=== PATIENT | female | born 1990 | race Caucasian/White ===

== ENCOUNTER 2020-05-25 10:14 | Emergency (ER) | payer OTHER, SELFPAY ==
[2020-05-25 10:45] VITALS: BP 149/100; PULSE 131; RESP 18; TEMP 37.2; O2SAT 96; BMI 41.1
--- NOTE | 2020-05-25 11:46 | PC.NURSE ---
patient a&ox3, ambulating x2 to bathroom for bm, quality assurance monitor body sinus tach 120s, pt hard stick- obtained labs/urine asked for assistance to obtain iv site, will continue to monitor.
[2020-05-25 11:50] LABS: MANUAL DIFF FLAG NO
[2020-05-25 11:53] LABS: Basophils Percent Auto 0.4 % (0-2); Eosinophils Percent Auto 0.2 % (0-4); Hemoglobin 14.2 g/dl (12.0-16.0); Imm Gran Abs Auto 0.04 X10*3/uL (0.00-0.03); Imm Gran Pct Auto 0.4 % (0.0-0.4); Lymphocytes Absolute Auto 2.4 X10*3/uL (1.2-4.9); Lymphocytes Percent Auto 21.9 % (20-40); Mean Corpuscular HGB Conc 33.8 g/dl (31.0-35.0); Mean Corpuscular Hemoglobin 29.2 pg (27.0-33.0); Mean Corpuscular Volume 86.2 fL (80-98); Mean Platelet Volume 9.5 fL (9.4-12.3); Monocytes Absolute Auto 0.3 X10*3/uL (0.1-1.2); Monocytes Percent Auto 3.1 % (2-11); Platelet Count 443 X10*3/uL (160-400); Red Blood Count 4.87 X10*6/uL (4.20-5.50); Red Cell Distribution Width 12.9 % (11.0-16.0); White Blood Count 10.8 X10*3/uL (4.8-10.8)
[2020-05-25 11:59] LABS: Glucose Urine UA NEG (NEG); Leukocyte Esterase Urine NEG (NEG); Nitrite Urine NEG (NEG); Specific Gravity - Urine 1.025 (1.005-1.025); Urine Blood 1+ (NEG); Urine Ketones NEG (NEG); Urine Protein NEG (NEG-TRACE)
[2020-05-25 12:01] LABS: Appearance Urine CLEAR; Color Urine YELLOW
[2020-05-25 12:02] LABS: UPreg QC Valid YES; Urine Pregnancy NEGATIVE (NEGATIVE)
[2020-05-25] MEDS: 0.9 % Sodium Chloride 1,000 ML 999 ML IV (12:06)
[2020-05-25] MEDS: ondansetron HCL 4 MG/2 ML VIAL IVPUSH (12:06)
[2020-05-25] MEDS: Dicyclomine HCl 10 MG CAPSULE 20 MG PO (12:06)
--- NOTE | 2020-05-25 12:10 | PC.NURSE ---
iv inserted and patient medicated per order
[2020-05-25 12:18] LABS: Alanine Aminotransferase 45 U/L (0-31); Albumin Level 4.7 g/dL (3.5-5.0); Alkaline Phosphatase 90 U/L (39-117); Anion Gap 17 (12-20); Aspartate Amino Transferase 23 U/L (5-31); Bilirubin Total 0.2 mg/dL (0.0-1.0); Blood Urea Nitrogen 8 mg/dL (9-16); Calcium 9.5 mg/dL (8.4-10.2); Carbon Dioxide 21 mmol/L (22-29); Chloride 106 mmol/L (96-108); Creatinine Clr Calc Pharmacy 89.3; Estimated Glomerular Filt Rate > 60; Glucose Random 141 mg/dL (60-115); Potassium 4.7 mmol/l (3.3-5.1); Sodium 139 mmol/L (135-145)
[2020-05-25 12:32] LABS: Bacteria Urine 2+ /LPF; RBC Urine 0-2 /HPF (0); Squamous Epithelial Cell Urine 2+ /LPF; WBC Urine 0-2 /HPF (0-4)
--- NOTE | 2020-05-25 12:44 | ED_ITS ---
HPI - Abdominal Pain General Chief Complaint: Abdominal Pain Stated Complaint: n/v abd pain Time Seen by Provider: 05/25/20 10:57 Source: patient Mode of arrival: ambulatory Limitations: no limitations History of Present Illness HPI narrative: This is a 30-year-old with past medical history significant for polycystic ovarian syndrome, chronic abdominal pain secondary to gastroparesis and surgical history of partial tonsillectomy and cholecystectomy who unfortunately suffers from chronic abdominal pain secondary to gastroparesis leading to multiple ED visits I initially saw her in August when she moved back here from [place] during that visit labs and abdominal CT was done for her abdominal pain which did not show any acute pathology. She does follow him sure counting gastro and question [facility] she has had ?flares? of abdominal pain for several years now and today for the past 3 days states she has had nausea with diffuse upper abdominal pain consistent with previous episodes. There is associated nausea but no vomiting or diarrhea. There is no symptoms. There is no vaginal discharge or bleeding. There is no fever or chills. No recent travel or sick contacts. MD elicited complaint: abdominal pain Pertinent past history: other Onset (ago): day(s) Pain Consistency: intermittent Location: diffuse and periumbilical Quality: aching Radiation: none Migration to: no migration Context: history of similar episodes Associated symptoms: nausea Related Data Allergies Allergy/AdvReac Type Severity Reaction Status Date / Time influenza virus vaccine, Allergy Mild UNKNOWN Unverified 01/29/20 15:54 specific [FLU VACCINE] doxycycline [DOXYCYCLINE] Allergy Unknown SWELLING Unverified 01/29/20 15:54 vancomycin [VANCOMYCIN] Allergy Unknown ANAPHYLAXIS Unverified 01/29/20 15:54 Review of Systems Review of Systems Constitutional: No Weight loss, No Fever, No Chills, No Night Sweats, No Fatigue, No Malaise ENT/Mouth: No Hearing loss, No Ear Pain, No Nasal Congestion, No Sinus Pain, No Hoarseness, No sore throat, No Rhinorrhea, No Swallowing Difficulty Eyes: No Eye Pain, No Swelling, No Redness, No Foreign Body, No Discharge, No Vision Changes Cardiovascular: No Chest Pain, No SOB, No Dyspnea on Exertion, No Orthopnea, No Edema, No Palpitations Respiratory: No Cough, No Sputum, No Wheezing, No Smoke Exposure, No Dyspnea Gastrointestinal: As noted in HPI, No Constipation, No Hematochezia, No Melena Genitourinary: no irregular bleeding, No Dysuria, No Urinary Frequency, No Hematuria, No Urinary Incontinence, No Urgency, No Flank Pain Musculoskeletal: No joint pain, No Myalgias, No Joint Swelling Skin: No Skin Lesions, No rash Neuro: No Weakness, No Numbness, No Paresthesias, No Loss of Consciousness, No Dizziness, No Headache Psych: No Social Issues Heme/Lymph: No Bruising, No Bleeding,No Lymphadenopathy Endocrine: No Polyuria, No Polydipsia, No Temperature Intolerance Yes all other systems are reviewed and are negative Physical Exam Vital Signs: Vital Signs: Last Vital Signs Temp 98.3 F 05/25/20 15:09 Pulse 102 H 05/25/20 15:09 Resp 18 05/25/20 15:09 BP 143/90 H 05/25/20 15:09 Pulse Ox 96 05/25/20 10:45 Body Mass Index 41.1 Reviewed Const: General: cooperative and healthy appearing; No acute distress or intoxicated appearing Nutritional Appearance: average body habitus Orientation/consciousness: patient oriented x3 HENMT: Head: Yes normal to inspection Ears: hearing grossly normal bilaterally Eyes: General: appearance normal, both eyes and all related structures Visual Casanova: normal visual casanova by confrontation Neck: Neck: Yes normal visual inspection, No positive Brudzinski's sign, No positive Kernig's sign and No tender Thyroid: Thyroid normal Chest: Chest palpation & inspection: normal inspection of the chest Resp: Effort & Inspection: normal respiratory effort Cardio: Jugular venous distension: no JVD Rhythm: regular rhythm Heart sounds: S1 normal heart sound present and S2 normal heart sound present GI: Inspection: Yes normal to inspection Percussion: Yes normal to percussion Auscultation: normal bowel sounds : General: Yes no CVA tenderness Back/Spine/Pelvis: Back: no CVA tenderness Skin: General skin exam: no rashes or lesions noted Neuro: General: patient oriented x3 Extrem: General: Yes normal to inspection Course Course Course Narrative: Feels much better after IV Zofran, fluids and Bentyl. States the pain and the nausea has resolved. Workup overall unrevealing. Will discharge home with GI follow-up. Dr. Sierra did call in a PPI prescription for her. MDM - Abdominal Pain MDM Narrative Medical decision making narrative: Will check labs, UA, U preg and treat with IV fluids, antiemetics and Bentyl. Pain consistent with chronic gastroparesis she gets intermittent flares is being followed by GI here Dr. Sierra. Overall exam is well and reveals no acute surgical abdomen. Will re-evaluate and dispo per plan after treatment. Differential Diagnosis Differential diagnosis: Likely abdominal pain and gastritis; Unlikely constipation, diverticulitis, mesenteric ischemia, ovarian cyst, pancreatitis, peptic ulcer disease, renal colic and small bowel obstruction Medical Records Attestation: I reviewed the patient's medical records. Medical records narrative: August 2019 visit reviewed Along with subsequent visits in September and in October 2019 All visits for abdominal pain with similar presentation Lab Data Attestation: I reviewed the patient's lab results. Result diagrams: 05/25/20 11:38 05/25/20 11:38 Labs: Lab Results 05/25/20 05/25/20 05/25/20 Range/Units 11:38 11:38 11:38 WBC 10.8 (4.8-10.8) X10*3/uL RBC 4.87 (4.20-5.50) X10*6/uL Hgb 14.2 (12.0-16.0) g/dl Hct 42.0 (37-47) % MCV 86.2 (80-98) fL MCH 29.2 (27.0-33.0) pg MCHC 33.8 (31.0-35.0) g/dl RDW 12.9 (11.0-16.0) % Plt Count 443 H (160-400) X10*3/uL MPV 9.5 (9.4-12.3) fL Immature Gran % (Auto) 0.4 (0.0-0.4) % Neut % (Auto) 74.0 H (45-73) % Lymph % (Auto) 21.9 (20-40) % [place] % (Auto) 3.1 (2-11) % Eos % (Auto) 0.2 (0-4) % Baso % (Auto) 0.4 (0-2) % Lymph # (Auto) 2.4 (1.2-4.9) X10*3/uL [place] # (Auto) 0.3 (0.1-1.2) X10*3/uL Eos # (Auto) 0.0 (0.0-0.4) X10*3/uL Baso # (Auto) 0.0 (0.0-0.2) X10*3/uL Abs Immat Gran (auto) 0.04 H (0.00-0.03) X10*3/uL Absolute Neuts (auto) 8.0 (2.0-8.3) X10*3/uL Absolute Nucleated RBC 0.000 (0.0-0.012) X10*3/uL Nucleated RBC % (auto) 0.0 (0.0-0.2) /100WBC Sodium 139 (135-145) mmol/L Potassium 4.7 (3.3-5.1) mmol/l Chloride 106 (96-108) mmol/L Carbon Dioxide 21 L (22-29) mmol/L Anion Gap 17 (12-20) BUN 8 L (9-16) mg/dL Creatinine 0.83 (0.5-1.4) mg/dL Estim Creat Clear Calc 89.3 Estimated GFR > 60 Random Glucose 141 H (60-115) mg/dL Calcium 9.5 (8.4-10.2) mg/dL Total Bilirubin 0.2 (0.0-1.0) mg/dL AST 23 (5-31) U/L ALT 45 H (0-31) U/L Alkaline Phosphatase 90 (39-117) U/L Total Protein 8.0 (6.5-8.0) g/dL Albumin 4.7 (3.5-5.0) g/dL Urine Color YELLOW Urine Appearance CLEAR Urine pH 6.0 (5.0-8.0) Ur Specific [place] 1.025 (1.005-1.025) Urine Protein NEG (NEG-TRACE) MG/DL Urine Glucose (UA) NEG (NEG) MG/DL Urine Ketones NEG (NEG) MG/DL Urine Blood 1+ H (NEG) Urine Nitrite NEG (NEG) Ur Leukocyte Esterase NEG (NEG) Urine RBC 0-2 (0) /HPF Urine WBC 0-2 (0-4) /HPF Ur Squamous Epith Cells 2+ /LPF Urine Bacteria 2+ /LPF Urine Test NEGATIVE (NEGATIVE) Discharge Plan Discharge Clinical Impression: Nausea & vomiting Patient Disposition: Home, Self-Care Instructions: Abdominal Pain (ED) Additional Instructions: Supportive care discussed Take medication prescribed Return if any concerns or worsening symptoms Otherwise follow up with her GI doctor as discussed Thank you Referrals: Janny Peoples FNP [Primary Care Provider] - 1 week [facility] Past Medical History Medical History (Updated 05/25/20 @ 15:18 by James Sullivan NP) Cholecystectomy planned Gastroparesis Lyme disease Osteoarthritis PCOS (polycystic ovarian syndrome) Pre-diabetes Surgical History (Updated 05/25/20 @ 10:49 by Mely Damon) H/O partial thyroidectomy Social History Social History Alcohol intake: current Alcohol intake frequency: holidays/special occasions only Smoked in Last 30 Days: No Use of substances other than those prescribed or required for medical reasons: No Advance Directives: No Advance Directives Information Provided: No
[2020-05-25 15:09] VITALS: BP 143/90; PULSE 102; RESP 18; TEMP 36.8
== END 2020-05-25 15:30 | disposition home or self-care (01) ==
PROVIDERS: Nurse Practitioner Primary Care; Emergency Provider Emergency Medicine Emergency Medical Services; PCP Nurse Practitioner Family
DX: R11.2 Nausea with vomiting, unspecified (principal)
CPT/HCPCS: 36415; 80053; 81001; 81025; 85025; 96361; 96374; 99284; J2405

== ENCOUNTER 2021-03-05 22:06 | Observation (INO) | payer OTHER, SELFPAY ==
--- NOTE | 2021-03-05 | ECG_ITS ---
Test Reason : TACJYCARDIA/SYNCOPE Blood Pressure : / mmHG Vent. Rate : 125 BPM Atrial Rate : 125 BPM P-R Int : 146 ms QRS Dur : 066 ms QT Int : 318 ms P-R-T Axes : 037 016 036 degrees QTc Int : 458 ms Sinus tachycardia Otherwise normal ECG NO PREVIOUS EKG Referred By: Generic ED Physician Electronically Signed By:RADHA VNACE MD
[2021-03-05 22:11] VITALS: BP 149/110; PULSE 140; RESP 16; TEMP 37; O2SAT 97; BMI 41.1
--- NOTE | 2021-03-05 22:35 | ED_ITS ---
HPI - Nausea/Vomiting/Diarrhea General Chief complaint: Nausea/Vomiting/Diarrhea Stated complaint: Abdominal pain Time Seen by Provider: 03/05/21 22:26 Source: patient Mode of arrival: ambulatory Limitations: no limitations History of Present Illness HPI Narrative: Patient comes emergency room complaining a gastroparesis exacerbation. Patient states she has been vomiting, having diarrhea, abdominal distension throughout the day. Patient states she has had recently multiple exacerbations with a self resolve, however today she is still having symptoms, unable to tolerate medications. Patient tried p.o. Zofran, states it did not help her. Patient denies being sick lately, no recent URIs, no UTIs, no known e xposure to COVID-19 patients Related Data Allergies Allergy/AdvReac Type Severity Reaction Status Date / Time influenza virus vaccine, Allergy Mild UNKNOWN Unverified 01/29/20 15:54 specific [FLU VACCINE] doxycycline [DOXYCYCLINE] Allergy Unknown SWELLING Unverified 01/29/20 15:54 vancomycin [VANCOMYCIN] Allergy Unknown ANAPHYLAXIS Unverified 01/29/20 15:54 metoclopramide [From Reglan] Allergy Unknown Verified 03/05/21 22:17 Review of Systems Review of Systems: Constitutional : No Weight loss, No Fever, No Chills, No Night Sweats, No Fatigue, No Malaise ENT/Mouth : No Hearing loss, No Ear Pain, No Nasal Congestion, No Sinus Pain, No Hoarseness, No sore throat, No Rhinorrhea, No Swallowing Difficulty Eyes: No Eye Pain, No Swelling, No Redness, No Foreign Body, No Discharge, No Vision Changes Cardiovascular : No Chest Pain, No SOB, No Dyspnea on Exertion, No Orthopnea, No Edema, No Palpitations Respiratory : No Cough, No Sputum, No Wheezing, No Smoke Exposure, No Dyspnea Gastrointestinal : No Nausea, No Vomiting, No Diarrhea, No Constipation, No abdominal Pain, No Hematochezia, No Melena Genitourinary : no irregular bleeding, No Dysuria, No Urinary Frequency, No Hematuria, No Urinary Incontinence, No Urgency, No Flank Pain, No Urinary Flow Changes, No Hesitancy Musculoskeletal : No joint pain, No Myalgias, No Joint Swelling Skin : No Skin Lesions, No rash Neuro : No Weakness, No Numbness, No Paresthesias, No Loss of Consciousness, No Dizziness, No Headache Psych : No Anxiety/Panic, No Depression, No SI/HI/AH/VH, No Social Issues, Heme/Lymph: No Bruising, No Bleeding,No Lymphadenopathy Endocrine : No Polyuria, No Polydipsia, No Temperature Intolerance [facility] Past Medical History Medical History Cholecystectomy planned Gastroparesis Lyme disease Osteoarthritis PCOS (polycystic ovarian syndrome) Pre-diabetes Surgical History H/O partial thyroidectomy Social History Social History Alcohol intake: current Alcohol intake frequency: holidays/special occasions only Advance Directives: No Advance Directives Information Provided: No Patient : No Physical Exam Vital Signs: Vital Signs: Last Vital Signs Temp 98.2 F 03/05/21 23:26 Pulse 121 H 03/06/21 02:32 Resp 16 03/06/21 02:32 BP 132/82 03/06/21 02:32 Pulse Ox 98 03/06/21 02:32 Body Mass Index 41.1 Const: Other: Appearance: Alert. Oriented X3. No acute distress. Eyes: Pupils equal, round and reactive to light. ENT: Pharynx normal. Neck: Normal inspection. Neck supple. No lymph nodes noted. No crepitus CVS: Normal heart rate and rhythm. Pulses normal. Normal S1 and S2 Respiratory: No respiratory distress. Breath sounds normal. No Wheezing. No rales Abdomen: Soft and nontender. No rigidity. No distention. Skin: Skin warm and dry. Normal skin color. Normal skin turgor. Extremities: No lower extremity edema. No lower extremity edema. No Lacerations. No Rash Neuro: Oriented X 3. No motor deficit. No sensory deficit. Moving all extermities. No slurred speech. Course Course Course Narrative: Patient received 3 L of normal saline, 1 dose of morphine, Zofran, Phenergan, Compazine, dicyclomine. Patient was p.o. challenged and started vomiting again. I discussed the patient with Dr. Slaughter, patient being admitted for intractable vomiting, gastroparesis. MDM - Nausea/Vomiting/Diarrhea Lab Data Result diagrams: 03/05/21 22:47 03/05/21 22:47 Labs: Lab Results 03/05/21 03/05/21 03/05/21 Range/Units 22:47 22:47 22:47 WBC 15.8 H (4.8-10.8) X10*3/uL RBC 5.21 (4.20-5.50) X10*6/uL Hgb 14.8 (12.0-16.0) g/dl Hct 44.5 (37-47) % MCV 85.4 (80-98) fL MCH 28.4 (27.0-33.0) pg MCHC 33.3 (31.0-35.0) g/dl RDW 13.2 (11.0-16.0) % Plt Count 414 H (160-400) X10*3/uL MPV 9.8 (9.4-12.3) fL Immature Gran % (Auto) 0.4 (0.0-0.4) % Neut % (Auto) 86.0 H (45-73) % Lymph % (Auto) 8.8 L (20-40) % [place] % (Auto) 4.4 (2-11) % Eos % (Auto) 0.2 (0-4) % Baso % (Auto) 0.2 (0-2) % Lymph # (Auto) 1.4 (1.2-4.9) X10*3/uL [place] # (Auto) 0.7 (0.1-1.2) X10*3/uL Eos # (Auto) 0.0 (0.0-0.4) X10*3/uL Baso # (Auto) 0.0 (0.0-0.2) X10*3/uL Abs Immat Gran (auto) 0.06 H (0.00-0.03) X10*3/uL Absolute Neuts (auto) 13.6 H (2.0-8.3) X10*3/uL Absolute Nucleated RBC 0.000 (0.0-0.012) X10*3/uL Nucleated RBC % (auto) 0.0 (0.0-0.2) /100WBC Sodium 137 (135-145) mmol/L Potassium 4.6 (3.3-5.1) mmol/L Chloride 104 (96-108) mmol/L Carbon Dioxide 22 (22-29) mmol/L Anion Gap 16 (12-20) BUN 12 (9-16) mg/dL Creatinine 1.06 (0.5-1.4) mg/dL Estim Creat Clear Calc 69.3 Estimated GFR > 60 Random Glucose 219 H (60-115) mg/dL Calcium 10.0 (8.4-10.2) mg/dL Total Bilirubin 0.3 (0.0-1.0) mg/dL Direct Bilirubin < 0.2 (0.0-0.5) mg/dL AST 18 (5-31) U/L ALT 27 (0-31) U/L Alkaline Phosphatase 81 (39-117) U/L Troponin I High Sens (<3.5-17.0) ng/L Total Protein 7.8 (6.5-8.0) g/dL Albumin 4.6 (3.5-5.0) g/dL Lipase 32 (8-78) U/L Urine Color DK YELLOW Urine Appearance HAZY Urine pH 6.0 (5.0-8.0) Ur Specific [place] >= 1.030 H (1.005-1.025) Urine Protein 2+ H (NEG-TRACE) MG/DL Urine Glucose (UA) NEG (NEG) MG/DL Urine Ketones 5 (NEG) MG/DL Urine Blood NEG (NEG) Urine Nitrite NEG (NEG) Ur Leukocyte Esterase 1+ H (NEG) Urine RBC 0-2 (0) /HPF Urine WBC 15-29 H (0-4) /HPF Ur Squamous Epith Cells 3+ /LPF Ur Renal Epithelial Cell TRACE /LPF Urine Bacteria TRACE /LPF Hyaline Casts 1-4 /LPF WBC Casts 0-2 /LPF Urine Mucus 3+ /LPF Urine Test (NEGATIVE) Urine Opiates Screen (Not Detect) Urine Fentanyl Screen (Not Detect) Ur Barbiturates Screen (Not Detect) Ur Phencyclidine Scrn (Not Detect) Ur Amphetamines Screen (Not Detect) U Benzodiazepines Scrn (Not Detect) Urine Cocaine Screen (Not Detect) U Marijuana (THC) Screen (Not Detect) 03/05/21 03/05/21 03/05/21 Range/Units 22:47 22:47 22:47 WBC (4.8-10.8) X10*3/uL RBC (4.20-5.50) X10*6/uL Hgb (12.0-16.0) g/dl Hct (37-47) % MCV (80-98) fL MCH (27.0-33.0) pg MCHC (31.0-35.0) g/dl RDW (11.0-16.0) % Plt Count (160-400) X10*3/uL MPV (9.4-12.3) fL Immature Gran % (Auto) (0.0-0.4) % Neut % (Auto) (45-73) % Lymph % (Auto) (20-40) % [place] % (Auto) (2-11) % Eos % (Auto) (0-4) % Baso % (Auto) (0-2) % Lymph # (Auto) (1.2-4.9) X10*3/uL [place] # (Auto) (0.1-1.2) X10*3/uL Eos # (Auto) (0.0-0.4) X10*3/uL Baso # (Auto) (0.0-0.2) X10*3/uL Abs Immat Gran (auto) (0.00-0.03) X10*3/uL Absolute Neuts (auto) (2.0-8.3) X10*3/uL Absolute Nucleated RBC (0.0-0.012) X10*3/uL Nucleated RBC % (auto) (0.0-0.2) /100WBC Sodium (135-145) mmol/L Potassium (3.3-5.1) mmol/L Chloride (96-108) mmol/L Carbon Dioxide (22-29) mmol/L Anion Gap (12-20) BUN (9-16) mg/dL Creatinine (0.5-1.4) mg/dL Estim Creat Clear Calc Estimated GFR Random Glucose (60-115) mg/dL Calcium (8.4-10.2) mg/dL Total Bilirubin (0.0-1.0) mg/dL Direct Bilirubin (0.0-0.5) mg/dL AST (5-31) U/L ALT (0-31) U/L Alkaline Phosphatase (39-117) U/L Troponin I High Sens < 3.5 (<3.5-17.0) ng/L Total Protein (6.5-8.0) g/dL Albumin (3.5-5.0) g/dL Lipase (8-78) U/L Urine Color Urine Appearance Urine pH (5.0-8.0) Ur Specific [place] (1.005-1.025) Urine Protein (NEG-TRACE) MG/DL Urine Glucose (UA) (NEG) MG/DL Urine Ketones (NEG) MG/DL Urine Blood (NEG) Urine Nitrite (NEG) Ur Leukocyte Esterase (NEG) Urine RBC (0) /HPF Urine WBC (0-4) /HPF Ur Squamous Epith Cells /LPF Ur Renal Epithelial Cell /LPF Urine Bacteria /LPF Hyaline Casts /LPF WBC Casts /LPF Urine Mucus /LPF Urine Test NEGATIVE (NEGATIVE) Urine Opiates Screen Not Detected (Not Detect) Urine Fentanyl Screen Not Detected (Not Detect) Ur Barbiturates Screen Not Detected (Not Detect) Ur Phencyclidine Scrn Not Detected (Not Detect) Ur Amphetamines Screen Not Detected (Not Detect) U Benzodiazepines Scrn Not Detected (Not Detect) Urine Cocaine Screen Not Detected (Not Detect) U Marijuana (THC) Screen Not Detected (Not Detect) ECG Data Attestation: I personally reviewed and interpreted this ECG as follows: (Sinus tachycardia, heart rate 125, no ST segment depression or elevation, no T-wave inversion, QTC 458) Discharge Plan Discharge Clinical Impression: Gastroparesis, Vomiting Patient Disposition: Admitted As Inpatient
[2021-03-05 23:01] LABS: MANUAL DIFF FLAG NO
[2021-03-05 23:03] LABS: Basophils Percent Auto 0.2 % (0-2); Eosinophils Percent Auto 0.2 % (0-4); Hematocrit 44.5 % (37-47); Hemoglobin 14.8 g/dl (12.0-16.0); Imm Gran Abs Auto 0.06 X10*3/uL (0.00-0.03); Imm Gran Pct Auto 0.4 % (0.0-0.4); Lymphocytes Absolute Auto 1.4 X10*3/uL (1.2-4.9); Lymphocytes Percent Auto 8.8 % (20-40); Mean Corpuscular HGB Conc 33.3 g/dl (31.0-35.0); Mean Corpuscular Hemoglobin 28.4 pg (27.0-33.0); Mean Corpuscular Volume 85.4 fL (80-98); Mean Platelet Volume 9.8 fL (9.4-12.3); Monocytes Absolute Auto 0.7 X10*3/uL (0.1-1.2); Monocytes Percent Auto 4.4 % (2-11); Neutrophils Absolute Auto 13.6 X10*3/uL (2.0-8.3); Platelet Count 414 X10*3/uL (160-400); Red Blood Count 5.21 X10*6/uL (4.20-5.50); Red Cell Distribution Width 13.2 % (11.0-16.0); White Blood Count 15.8 X10*3/uL (4.8-10.8)
[2021-03-05] MEDS: 0.9 % Sodium Chloride 1,000 ML 999 ML IVCONT (23:03)
[2021-03-05] MEDS: Prochlorperazine Edisylate 10 MG/2 ML VIAL IM (23:03)
[2021-03-05 23:04] LABS: Appearance Urine HAZY; Color Urine DK YELLOW; Glucose Urine UA NEG (NEG); Leukocyte Esterase Urine 1+ (NEG); Nitrite Urine NEG (NEG); Specific Gravity - Urine >= 1.030 (1.005-1.025); UACC Culture Trigger YES; Urine Blood NEG (NEG); Urine Ketones 5 MG/DL (NEG); Urine Protein 2+ MG/DL (NEG-TRACE)
[2021-03-05 23:08] LABS: UPreg QC Valid YES; Urine Pregnancy NEGATIVE (NEGATIVE)
--- NOTE | 2021-03-05 23:10 | PC.NURSE ---
iv inserted w/o difficulty. ns up and running w/o site intact. pt actively vomiting in room. pt medicated per emar for nausea. pt unable to take the bentyl at this time d/t nausea. Labs and urine sent to lab for eval.
[2021-03-05 23:15] LABS: Bacteria Urine TRACE /LPF; Mucus Urine 3+ /LPF; RBC Urine 0-2 /HPF (0); Renal Epithelial Cells Urine TRACE /LPF; Squamous Epithelial Cell Urine 3+ /LPF; White Blood Cell Casts Urine 0-2 /LPF
[2021-03-05 23:25] LABS: Alanine Aminotransferase 27 U/L (0-31); Albumin Level 4.6 g/dL (3.5-5.0); Alkaline Phosphatase 81 U/L (39-117); Anion Gap 16 (12-20); Aspartate Amino Transferase 18 U/L (5-31); Bilirubin Direct < 0.2 mg/dL (0.0-0.5); Bilirubin Total 0.3 mg/dL (0.0-1.0); Blood Urea Nitrogen 12 mg/dL (9-16); Carbon Dioxide 22 mmol/L (22-29); Chloride 104 mmol/L (96-108); Creatinine Clr Calc Pharmacy 69.3; Estimated Glomerular Filt Rate > 60; Glucose Random 219 mg/dL (60-115); Lipase 32 U/L (8-78); Potassium 4.6 mmol/L (3.3-5.1); Sodium 137 mmol/L (135-145); Total Protein 7.8 g/dL (6.5-8.0)
[2021-03-05 23:26] VITALS: BP 151/97; PULSE 138; RESP 18; TEMP 36.8; O2SAT 96
[2021-03-05 23:27] LABS: Troponin-I High Sensitivity < 3.5 ng/L (<3.5-17.0)
[2021-03-05 23:47] VITALS: RESP 16
[2021-03-05] MEDS: Morphine Sulfate 4 MG/ML CARTRIDGE IVPUSH (23:47)
[2021-03-06] VITALS (12 sets, daily range): BP systolic 132–158; BP diastolic 78–96; PULSE 94–130; RESP 16–20; TEMP -17.3–38.3; O2SAT 94–99
[2021-03-06] MEDS: Dicyclomine HCl 10 MG CAPSULE PO (00:01)
[2021-03-06] MEDS: 0.9 % Sodium Chloride 1,000 ML 999 ML IVCONT (02:59)
[2021-03-06] MEDS: ondansetron HCL 4 MG/2 ML VIAL IVPUSH ×3 (03:06→19:55)
[2021-03-06 03:15] LABS: Amphetamine Screen Urine Not Detected (Not Detect); Barbiturates, Urine Not Detected (Not Detect); Benzodiazepines Screen Urine Not Detected (Not Detect); Cannabinoid Screen Urine Not Detected (Not Detect); Cocaine Screen Urine Not Detected (Not Detect); Fentanyl, urine Not Detected (Not Detect); Opiate Screen Urine Not Detected (Not Detect); Phencyclidine Screen Urine Not Detected (Not Detect)
--- NOTE | 2021-03-06 04:16 | PC.NURSE ---
pt being admitted. pt aware. pt is not actively vomiting at this time.
--- NOTE | 2021-03-06 05:29 | PC.NURSE ---
pt resting in NAD.
--- NOTE | 2021-03-06 06:18 | P.HPHOSP_ITS ---
History of Present Illness Date of Service: 03/06/21 Chief Complaint: Gastroparesis flare up This is a 31-year-old female with past medical history of gastroparesis, diabetes, osteoarthritis and labs disease who presents to the hospital with complaints of gastroparesis flare patient reports that she gets them every few months, associated with nausea vomiting abdominal pain. The abdominal pain is usually diffuse, 7/10, now localized to the center radiating to the back, has diarrhea, no fever no chills, no chest pain, no shortness of breath, no urinary symptoms and no lower extremity edema. On arrival to the ED patient hemodynamically stable with no significant abnormal vitals Labs are significant for WBC count of 15.8, UA that is positive for leukocyte Estrace and WBC, otherwise unremarkable Patient received multiple antiemetics in the ED with no relief therefore being admitted for intractable nausea vomiting Review of Systems Review of Systems: Yes all other systems are reviewed and are negative [facility] Medical History Cholecystectomy planned Gastroparesis Lyme disease Osteoarthritis PCOS (polycystic ovarian syndrome) Pre-diabetes Pertinent family history: No pertinent family history Surgical History H/O partial thyroidectomy Social History Alcohol intake: current Alcohol intake frequency: holidays/special occasions only Advance Directives: No Advance Directives Information Provided: No Patient : No Meds Allergies Allergy/AdvReac Type Severity Reaction Status Date / Time influenza virus vaccine, Allergy Mild UNKNOWN Unverified 01/29/20 15:54 specific [FLU VACCINE] doxycycline [DOXYCYCLINE] Allergy Unknown SWELLING Unverified 01/29/20 15:54 vancomycin [VANCOMYCIN] Allergy Unknown ANAPHYLAXIS Unverified 01/29/20 15:54 metoclopramide [From Reglan] Allergy Unknown Verified 03/05/21 22:17 Home Medications Medication Instructions Recorded Confirmed Last Taken Type bupropion HCl 150 mg tablet,12 hr 150 mg PO BID 03/06/21 03/06/21 Unknown History sustained-release Physical Exam Vital Signs and Narrative: Vital Signs: Last Vital Signs Temp 98.2 F 03/05/21 23:26 Pulse 121 H 03/06/21 02:32 Resp 16 03/06/21 02:32 BP 132/82 03/06/21 02:32 Pulse Ox 98 03/06/21 02:32 Body Mass Index 41.1 Const: General: cooperative and no acute distress Orientation/consciousness: patient oriented x3 Eyes: General: appearance normal, both eyes and all related structures Pupils: Equal, round and reactive pupils present Resp: Effort & Inspection: normal respiratory effort Auscultation: clear to auscultation bilaterally Cardio: Rate: regular rate Rhythm: regular rhythm GI: Other: Diffuse tenderness on palpation, no rebound or guarding Palpation (GI): Soft to palpation Auscultation: normal bowel sounds Skin: General skin exam: no rashes or lesions noted Neuro: General: patient oriented x3 Cranial nerves: Yes Equal, round and reactive pupils present Cognition (Neuro): normal cognition Extrem: General: Yes normal to inspection and Yes no pedal edema Results Labs CBC and Chem 7: 03/05/21 22:47 03/05/21 22:47 Labs: Laboratory Results - last 24 hr 03/05/21 03/05/21 03/05/21 22:47 22:47 22:47 MCV 85.4 MCH 28.4 MCHC 33.3 RDW 13.2 Plt Count 414 H MPV 9.8 Immature Gran % (Auto) 0.4 Neut % (Auto) 86.0 H Lymph % (Auto) 8.8 L [place] % (Auto) 4.4 Eos % (Auto) 0.2 Baso % (Auto) 0.2 Lymph # (Auto) 1.4 [place] # (Auto) 0.7 Eos # (Auto) 0.0 Baso # (Auto) 0.0 Abs Immat Gran (auto) 0.06 H Absolute Neuts (auto) 13.6 H Absolute Nucleated RBC 0.000 Nucleated RBC % (auto) 0.0 Anion Gap 16 Estim Creat Clear Calc 69.3 Estimated GFR > 60 Random Glucose 219 H Calcium 10.0 Total Bilirubin 0.3 Direct Bilirubin < 0.2 AST 18 ALT 27 Alkaline Phosphatase 81 Troponin I High Sens Total Protein 7.8 Albumin 4.6 Lipase 32 Urine Color DK YELLOW Urine Appearance HAZY Urine pH 6.0 Ur Specific [place] >= 1.030 H Urine Protein 2+ H Urine Glucose (UA) NEG Urine Ketones 5 Urine Blood NEG Urine Nitrite NEG Ur Leukocyte Esterase 1+ H Urine RBC 0-2 Urine WBC 15-29 H Ur Squamous Epith Cells 3+ Ur Renal Epithelial Cell TRACE Urine Bacteria TRACE Hyaline Casts 1-4 WBC Casts 0-2 Urine Mucus 3+ Urine Test Urine Opiates Screen Urine Fentanyl Screen Ur Barbiturates Screen Ur Phencyclidine Scrn Ur Amphetamines Screen U Benzodiazepines Scrn Urine Cocaine Screen U Marijuana (THC) Screen 03/05/21 03/05/21 03/05/21 22:47 22:47 22:47 MCV MCH MCHC RDW Plt Count MPV Immature Gran % (Auto) Neut % (Auto) Lymph % (Auto) [place] % (Auto) Eos % (Auto) Baso % (Auto) Lymph # (Auto) [place] # (Auto) Eos # (Auto) Baso # (Auto) Abs Immat Gran (auto) Absolute Neuts (auto) Absolute Nucleated RBC Nucleated RBC % (auto) Anion Gap Estim Creat Clear Calc Estimated GFR Random Glucose Calcium Total Bilirubin Direct Bilirubin AST ALT Alkaline Phosphatase Troponin I High Sens < 3.5 Total Protein Albumin Lipase Urine Color Urine Appearance Urine pH Ur Specific [place] Urine Protein Urine Glucose (UA) Urine Ketones Urine Blood Urine Nitrite Ur Leukocyte Esterase Urine RBC Urine WBC Ur Squamous Epith Cells Ur Renal Epithelial Cell Urine Bacteria Hyaline Casts WBC Casts Urine Mucus Urine Test NEGATIVE Urine Opiates Screen Not Detected Urine Fentanyl Screen Not Detected Ur Barbiturates Screen Not Detected Ur Phencyclidine Scrn Not Detected Ur Amphetamines Screen Not Detected U Benzodiazepines Scrn Not Detected Urine Cocaine Screen Not Detected U Marijuana (THC) Screen Not Detected Assessment and Plan (1) Gastroparesis: Status: Acute (2) Intractable nausea and vomiting: Status: Acute (3) UTI (urinary tract infection): Status: Acute This is a 31-year-old female with history of gastroparesis, diabetes who presents to the hospital with complaints of nausea vomiting # intractable nausea vomiting - secondary to gastroparesis - will treat with antiemetics, gentle hydration - patient reports that she does not like taking Reglan because it does not make her feel well and does not work for her # UTI - will start on IV antibiotics - follow cultures # gastroparesis - most likely secondary to her diabetes although patient reports that he was diagnosed previous to her diabetes diagnosis - diabetic control - antiemetics - pain control # diabetes - will start on low-dose sliding scale insulin - diabetic diet DVT prophylaxis: Early ambulation Quality Stroke Does the patient have a stroke diagnosis?: No VTE Prior VTE?: No VTE Risk Level:: Medical - moderate - high VTE Device Contraindication: Treatment Not Indicated VTE Drug Contraindication: N/A - Med Ordered
[2021-03-06] MEDS: cefTRIAXone sodium 1 GM in 0.9 % Sodium Chloride 50 ML IV (06:48)
[2021-03-06] MEDS: 0.9 % Sodium Chloride Flush 3 ML SYRINGE IVFLUSH ×2 (07:42→14:08)
--- NOTE | 2021-03-06 07:53 | PC.NURSE ---
pt resting quietly, no apparent distress, HR 129-133, pt asymptomatic. 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
[2021-03-06 08:05] LABS: COVID-19 Test Negative (Negative)
--- NOTE | 2021-03-06 08:46 | PC.NURSE ---
3rd attempt made to give report to receiving nurse. report not given yet, awaiting nurse call back.
--- NOTE | 2021-03-06 08:56 | PC.NURSE ---
report given to ANGEL Rueda. pt will be transported to room 446 by payroll technician.
--- NOTE | 2021-03-06 10:40 | MHC.CM.PN ---
Lives at home alone. No equipment, no services, independent, drives self. Plan is home at D/C. Patient will call for ride when ready for D/C. CM to follow.
--- NOTE | 2021-03-06 13:48 | HO.PM.IMPN ---
Subjective Subjective Date of Service: 03/06/21 Interval History: Nausea but tolerating small sips of clear liquids. Was diagnosed with gastroparesis prior to diagnosis of diabetes; she was NOT diabetic at the time of the gastric emptying study, which was done at [facility] in [place]. Had negative genetic testing for POTS and undergoing genetic testing for Dio-Danlos Review of Systems Review of Systems: Yes all other systems are reviewed and are negative Physical Exam Vital Signs: Vital Signs: Last Vital Signs Temp 99.8 F 03/06/21 11:46 Pulse 125 H 03/06/21 11:46 Resp 18 03/06/21 11:46 BP 141/81 H 03/06/21 11:46 Pulse Ox 98 03/06/21 11:46 Body Mass Index 41.1 Gen: in no acute distress HEENT: sclera anicteric, moist mucus membranes Neck: supple Lungs: clear to auscultation bilaterally Heart: regular rate and rhythm, no murmurs Abd: soft, non-tender, non-distended, obese Ext: no edema Skin: warm/well-perfused Neuro: alert and oriented x3, no focal findings Psych: appropriate affect Objective Data Active Medications Acetaminophen (Acetaminophen 325 Mg Tablet) 650 mg PO Q6H PRN PRN Reason: Pain, Mild (Pain Scale 1-3) Ceftriaxone Sodium 1 gm/ (Sodium Chloride) 50 mls @ 100 mls/hr IV Q24H [facility] Last Infusion: 03/06/21 07:24 Dose: 0 mls/hr Documented by: DIONNE Ondansetron HCl (Ondansetron Hcl 4 Mg/2 Ml Vial) 4 mg IVPUSH Q8H PRN PRN Reason: Nausea and Vomiting Last Admin: 03/06/21 08:21 Dose: 4 mg Documented by: SALLY Sodium Chloride (0.9 % Sodium Chloride Flush 3 Ml Syringe) 3 ml IVFLUSH QSHIFT [facility] Last Admin: 03/06/21 07:42 Dose: 3 ml Documented by: DIONNE Labs CBC & Chem 7: 03/05/21 22:47 03/05/21 22:47 Labs: Laboratory Results - last 24 hr 03/05/21 03/05/21 03/05/21 22:47 22:47 22:47 MCV 85.4 MCH 28.4 MCHC 33.3 RDW 13.2 Plt Count 414 H MPV 9.8 Immature Gran % (Auto) 0.4 Neut % (Auto) 86.0 H Lymph % (Auto) 8.8 L [place] % (Auto) 4.4 Eos % (Auto) 0.2 Baso % (Auto) 0.2 Lymph # (Auto) 1.4 [place] # (Auto) 0.7 Eos # (Auto) 0.0 Baso # (Auto) 0.0 Abs Immat Gran (auto) 0.06 H Absolute Neuts (auto) 13.6 H Absolute Nucleated RBC 0.000 Nucleated RBC % (auto) 0.0 Anion Gap 16 Estim Creat Clear Calc 69.3 Estimated GFR > 60 Random Glucose 219 H Estimat Average Glucose Hemoglobin A1c % Calcium 10.0 Total Bilirubin 0.3 Direct Bilirubin < 0.2 AST 18 ALT 27 Alkaline Phosphatase 81 Troponin I High Sens Total Protein 7.8 Albumin 4.6 Lipase 32 Urine Color DK YELLOW Urine Appearance HAZY Urine pH 6.0 Ur Specific [place] >= 1.030 H Urine Protein 2+ H Urine Glucose (UA) NEG Urine Ketones 5 Urine Blood NEG Urine Nitrite NEG Ur Leukocyte Esterase 1+ H Urine RBC 0-2 Urine WBC 15-29 H Ur Squamous Epith Cells 3+ Ur Renal Epithelial Cell TRACE Urine Bacteria TRACE Hyaline Casts 1-4 WBC Casts 0-2 Urine Mucus 3+ Urine Test Urine Opiates Screen Urine Fentanyl Screen Ur Barbiturates Screen Ur Phencyclidine Scrn Ur Amphetamines Screen U Benzodiazepines Scrn Urine Cocaine Screen U Marijuana (THC) Screen COVID-19 (LAURA) COVID-19 Clin Com 03/05/21 03/05/21 03/05/21 22:47 22:47 22:47 MCV MCH MCHC RDW Plt Count MPV Immature Gran % (Auto) Neut % (Auto) Lymph % (Auto) [place] % (Auto) Eos % (Auto) Baso % (Auto) Lymph # (Auto) [place] # (Auto) Eos # (Auto) Baso # (Auto) Abs Immat Gran (auto) Absolute Neuts (auto) Absolute Nucleated RBC Nucleated RBC % (auto) Anion Gap Estim Creat Clear Calc Estimated GFR Random Glucose Estimat Average Glucose Hemoglobin A1c % Calcium Total Bilirubin Direct Bilirubin AST ALT Alkaline Phosphatase Troponin I High Sens < 3.5 Total Protein Albumin Lipase Urine Color Urine Appearance Urine pH Ur Specific [place] Urine Protein Urine Glucose (UA) Urine Ketones Urine Blood Urine Nitrite Ur Leukocyte Esterase Urine RBC Urine WBC Ur Squamous Epith Cells Ur Renal Epithelial Cell Urine Bacteria Hyaline Casts WBC Casts Urine Mucus Urine Test NEGATIVE Urine Opiates Screen Not Detected Urine Fentanyl Screen Not Detected Ur Barbiturates Screen Not Detected Ur Phencyclidine Scrn Not Detected Ur Amphetamines Screen Not Detected U Benzodiazepines Scrn Not Detected Urine Cocaine Screen Not Detected U Marijuana (THC) Screen Not Detected COVID-19 (LAURA) COVID-19 Clin Com 03/06/21 03/06/21 07:40 22:47 MCV MCH MCHC RDW Plt Count MPV Immature Gran % (Auto) Neut % (Auto) Lymph % (Auto) [place] % (Auto) Eos % (Auto) Baso % (Auto) Lymph # (Auto) [place] # (Auto) Eos # (Auto) Baso # (Auto) Abs Immat Gran (auto) Absolute Neuts (auto) Absolute Nucleated RBC Nucleated RBC % (auto) Anion Gap Estim Creat Clear Calc Estimated GFR Random Glucose Estimat Average Glucose Cancelled Hemoglobin A1c % Cancelled Calcium Total Bilirubin Direct Bilirubin AST ALT Alkaline Phosphatase Troponin I High Sens Total Protein Albumin Lipase Urine Color Urine Appearance Urine pH Ur Specific [place] Urine Protein Urine Glucose (UA) Urine Ketones Urine Blood Urine Nitrite Ur Leukocyte Esterase Urine RBC Urine WBC Ur Squamous Epith Cells Ur Renal Epithelial Cell Urine Bacteria Hyaline Casts WBC Casts Urine Mucus Urine Test Urine Opiates Screen Urine Fentanyl Screen Ur Barbiturates Screen Ur Phencyclidine Scrn Ur Amphetamines Screen U Benzodiazepines Scrn Urine Cocaine Screen U Marijuana (THC) Screen COVID-19 (LAURA) Negative COVID-19 Clin Com See Note Microbiology Microbiology Results: Microbiology 03/05/21 Unknown Urine Culture - Preliminary Urine clean catch - Urine hopkins top No growth to date. Assessment and Plan (1) Gastroparesis: Status: Acute Assessment and Plan: hospital d#1 31yo F with gastroparesis that predated her diagnoses of DM2 admitted for intractable N/V # intractable N/V secondary to gastroparesis - continue prn ondansetron, IV fluids, clear liquid diet - had adverse reaction to metoclopramide and domperidone in past, has had short course of erythromycin in past with unknown result, also considered for gastric pacing - GI consultation # UTI - ceftriaxone d#1, follow UCx # DM2 - correction-dose lispro, check A1c # VTE ppx - SCDs Quality Stroke Does the patient have a stroke diagnosis?: No VTE Prior VTE?: No VTE Risk Level:: Medical - low VTE Device Contraindication: Treatment Not Indicated VTE Drug Contraindication: Treatment Not Indicated
[2021-03-06] MEDS: Morphine Sulfate 2 MG/ML CARTRIDGE IVPUSH ×2 (14:08→19:55)
[2021-03-06] MEDS: 0.9 % Sodium Chloride 1,000 ML 125 ML IVCONT ×2 (14:08→22:42)
[2021-03-06] MEDS: Acetaminophen 325 MG TABLET 650 MG PO ×2 (16:12→22:45)
[2021-03-06 16:42] LABS: Glucose, Whole Blood 117 mg/dL (60-115)
[2021-03-06 19:57] LABS: Glucose, Whole Blood 107 mg/dL (60-115)
[2021-03-07 03:26] VITALS: BP 118/80; PULSE 100; RESP 16; TEMP 36.6; O2SAT 93
[2021-03-07] MEDS: 0.9 % Sodium Chloride 1,000 ML 125 ML IVCONT (05:27)
[2021-03-07] MEDS: cefTRIAXone sodium 1 GM in 0.9 % Sodium Chloride 50 ML IV (05:28)
[2021-03-07] MEDS: ondansetron HCL 4 MG/2 ML VIAL IVPUSH (05:37)
[2021-03-07] MEDS: Morphine Sulfate 2 MG/ML CARTRIDGE IVPUSH (05:37)
[2021-03-07 07:06] LABS: MANUAL DIFF FLAG NO
[2021-03-07 07:08] VITALS: BP 131/73; PULSE 100; RESP 18; TEMP 37.2; O2SAT 96
[2021-03-07 07:14] LABS: Basophils Percent Auto 0.2 % (0-2); Eosinophils Percent Auto 0.5 % (0-4); Hematocrit 35.3 % (37-47); Hemoglobin 11.4 g/dl (12.0-16.0); Imm Gran Abs Auto 0.01 X10*3/uL (0.00-0.03); Imm Gran Pct Auto 0.2 % (0.0-0.4); Lymphocytes Absolute Auto 1.6 X10*3/uL (1.2-4.9); Lymphocytes Percent Auto 26.1 % (20-40); Mean Corpuscular HGB Conc 32.3 g/dl (31.0-35.0); Mean Corpuscular Hemoglobin 28.4 pg (27.0-33.0); Monocytes Absolute Auto 0.5 X10*3/uL (0.1-1.2); Monocytes Percent Auto 7.9 % (2-11); Neutrophils Absolute Auto 3.9 X10*3/uL (2.0-8.3); Neutrophils Percent Auto 65.1 % (45-73); Platelet Count 268 X10*3/uL (160-400); Red Blood Count 4.01 X10*6/uL (4.20-5.50); Red Cell Distribution Width 13.7 % (11.0-16.0)
[2021-03-07 07:23] LABS: Glucose, Whole Blood 122 mg/dL (60-115)
[2021-03-07 07:38] LABS: Estimated Average Glucose 183 mg/dL
[2021-03-07 07:55] LABS: Anion Gap 11 (12-20); Blood Urea Nitrogen 5 mg/dL (9-16); Calcium 7.2 mg/dL (8.4-10.2); Carbon Dioxide 24 mmol/L (22-29); Chloride 109 mmol/L (96-108); Estimated Glomerular Filt Rate > 60; Glucose Random 128 mg/dL (60-115); Potassium 3.6 mmol/L (3.3-5.1); Sodium 140 mmol/L (135-145)
[2021-03-07 11:13] VITALS: BP 127/76; PULSE 107; RESP 18; TEMP 37.4; O2SAT 95
--- NOTE | 2021-03-07 11:25 | PM.DS ---
DS: Providers Provider Date of Service: 03/07/21 Date of admission: 03/06/21 03:48 Primary care physician: Juan Chou MD Consults: 03/06/21 13:50 Consult to Gastroenterology Routine Consulting Provider: [facility] Reason for consultation: non-diabetic gastroparesis DS: Diagnosis Discharge Diagnosis (1) Gastroparesis: Status: Acute DS: Summary Hospital Course Hospital Course: Chief Complaint: Gastroparesis flare up This is a 31-year-old female with past medical history of gastroparesis, diabetes, osteoarthritis and labs disease who presents to the hospital with complaints of gastroparesis flare patient reports that she gets them every few months, associated with nausea vomiting abdominal pain.? The abdominal pain is usually diffuse, 7/10, now localized to the center radiating to the back, has diarrhea, no fever no chills, no chest pain, no shortness of breath, no urinary symptoms and no lower extremity edema. On arrival to the ED patient hemodynamically stable with no significant abnormal vitals Labs are significant for WBC count of 15.8, UA that is positive for leukocyte Estrace and WBC, otherwise unremarkable Patient received multiple antiemetics in the ED with no relief therefore being admitted for intractable nausea vomiting Hospital course: She was admitted overnight for flare of diabetes gastroparesis and has signficantly improved overnight with hydration, Zofran and tolerating diet and would like to go home. She has an appointment coming with GI at [facility] and is seeing an icing and glaze maker on in 2 days. She presently is on no meds for diabetes because she said giadiance was recently stopped due to yeast infection. She declined insulin until she can see icing and glaze maker. She has UTI treated in the hospital with Ceftriaxone and will discharge with Ceftin Time Spent with Patient Time attestation: Total time spent providing and/or coordinating discharge services: Discharge coordination time: Greater than 30 minutes Quality: Stroke Does the patient have a stroke diagnosis?: No Physical Exam Vital Signs: Vital Signs: Last Vital Signs Temp 99.4 F 03/07/21 11:13 Pulse 107 H 03/07/21 11:13 Resp 18 03/07/21 11:13 BP 127/76 03/07/21 11:13 Pulse Ox 95 03/07/21 11:13 Body Mass Index 41.1 DS: Data Data Completed and Pending Labs on day of discharge: Laboratory Results - last 24 hr 03/05/21 03/06/21 03/06/21 22:47 16:39 19:49 WBC RBC Hgb Hct MCV MCH MCHC RDW Plt Count MPV Immature Gran % (Auto) Neut % (Auto) Lymph % (Auto) [place] % (Auto) Eos % (Auto) Baso % (Auto) Lymph # (Auto) [place] # (Auto) Eos # (Auto) Baso # (Auto) Abs Immat Gran (auto) Absolute Neuts (auto) Absolute Nucleated RBC Nucleated RBC % (auto) Sodium Potassium Chloride Carbon Dioxide Anion Gap BUN Creatinine Estim Creat Clear Calc Estimated GFR POC Glucose 117 H 107 Random Glucose Estimat Average Glucose 183 Hemoglobin A1c % 8.0 Calcium 03/07/21 03/07/21 03/07/21 06:20 06:20 07:11 WBC 6.0 RBC 4.01 L D Hgb 11.4 L D Hct 35.3 L D MCV 88.0 MCH 28.4 MCHC 32.3 RDW 13.7 Plt Count 268 D MPV 10.0 Immature Gran % (Auto) 0.2 Neut % (Auto) 65.1 Lymph % (Auto) 26.1 [place] % (Auto) 7.9 Eos % (Auto) 0.5 Baso % (Auto) 0.2 Lymph # (Auto) 1.6 [place] # (Auto) 0.5 Eos # (Auto) 0.0 Baso # (Auto) 0.0 Abs Immat Gran (auto) 0.01 Absolute Neuts (auto) 3.9 Absolute Nucleated RBC 0.000 Nucleated RBC % (auto) 0.0 Sodium 140 Potassium 3.6 D Chloride 109 H Carbon Dioxide 24 Anion Gap 11 L BUN 5 L D Creatinine 0.72 Estim Creat Clear Calc 102.0 Estimated GFR > 60 POC Glucose 122 H Random Glucose 128 H Estimat Average Glucose Hemoglobin A1c % Calcium 7.2 L D Discharge Plan Discharge Anticipated Discharge Date/Time: 03/07/21 11:14 Patient Disposition: Home, Self-Care Discharge Diagnosis: Gastroparesis with nausea and vomitting Referrals: Juan Chou MD [Primary Care Provider] - 1 Week Discharge Medications: New cefuroxime axetil 250 mg tablet 250 mg PO BID 4 Days Qty: 8 RF: 0 ondansetron 4 mg tablet,disintegrating 4 mg PO Q8H 4 Days Qty: 12 RF: 0 Continued bupropion HCl 150 mg tablet sustained-release 12 hr 150 mg PO BID RF: 0 Discharge Orders: Discharge Order (Routine); Ordered 03/07/21 Ordered By: Alan Wilson Diet: advance to usual diet Activity on Discharge: As tolerated Stand Alone Forms: Patient Portal Discharge page Care Plan Goals: No rehospitalization Health Concerns: Diabetes with complication of gastroparesis nausea vomiting. Plan of Treatment: Taking diabetes medication as recommended, follow-up with your GI doctor in [facility], follow-up with icing and glaze maker as previously scheduled in 2 days. You may take Zofran for nausea vomiting. Assessment: As above
[2021-03-07 11:44] LABS: Glucose, Whole Blood 128 mg/dL (60-115)
--- NOTE | 2021-03-07 12:07 | MHC.CM.PN ---
pt dcd home no skilled services ordered by
--- NOTE | 2021-03-07 13:57 | CONS_ITS ---
DATE OF SERVICE: 03/07/2021 REFERRING PHYSICIAN: Nisha Pina MD REASON FOR CONSULTATION: Nausea, vomiting, and gastroparesis. HISTORY OF PRESENT ILLNESS: The patient is a pleasant 31-year-old woman, who was admitted to the hospital after presenting to the emergency room yesterday with complaints of abdominal pain, nausea, and vomiting. Symptoms began the night before admission with generalized abdominal pain, extending from the epigastric area across into the remainder of the abdomen with radiation into the back. There was associated nausea and nonbloody emesis. There were no precipitating or relieving factors. The pain persisted along with the nausea and vomiting and she presented to the emergency room, where she was given a variety of antiemetics and admitted to the hospital. She has a history of gastroparesis diagnosed in [place] with a gastric emptying scan that is thought to be nondiabetic in etiology. She does recall undergoing endoscopy approximately 6 years ago with no significant findings. She has been on omeprazole intermittently in the past, but was not taking this at the time of admission due to perceived lack of effect. She also has been using Zofran, but apparently was unable to get this due to a change in primary care providers. In the emergency room, she was evaluated with laboratory studies and given IV fluids. No imaging was done. She was also given morphine, Zofran, Phenergan, Compazine, dicyclomine, and then admitted to the hospital. Since admission, she has been treated with antiemetics and things have settled down to the point where she is able to tolerate liquids. She is scheduled for discharge later today. PAST MEDICAL HISTORY: 1. Polycystic ovary syndrome. 2. Gastroparesis. 3. Thyroid nodule with partial thyroidectomy. 4. Lyme disease. 5. Osteoarthritis. CURRENT MEDICATIONS: Her current medication list is reviewed in the chart. ALLERGIES: THERE ARE MULTIPLE ALLERGIES THAT ARE REVIEWED. FAMILY HISTORY: This is reviewed with the patient and is noncontributory. SOCIAL HISTORY: There is no current tobacco, alcohol, or substance abuse. REVIEW OF SYSTEMS: SKIN: No pruritus. HEENT: Negative. CARDIOPULMONARY: No shortness of breath or chest pain. GASTROINTESTINAL: As above. GENITOURINARY: Negative. NEUROPSYCHIATRIC: Negative. PHYSICAL EXAMINATION: GENERAL: Shows a pleasant female, sitting comfortably in bed. VITAL SIGNS: Reviewed in the electronic medical record and are stable. SKIN: Anicteric. HEENT: Shows no scleral icterus. NECK: Without lymphadenopathy or thyromegaly. LUNGS: Clear. HEART: Shows a regular rate and rhythm. S1, S2. No murmur. ABDOMEN: Soft without focal masses or tenderness. Bowel sounds are present. No organomegaly is noted. EXTREMITIES: Without edema. LABORATORY DATA: Shows a white blood cell count on admission elevated to 15, this is improved to 6 this morning. Chemistries are reviewed and are fairly unremarkable. She does have elevated blood sugars. IMPRESSION: Nausea and vomiting. This does appear consistent with her history of gastroparesis and she appears to have improved with supportive care. I did discuss with her arranging for followup outpatient evaluation in the office as she did have followup from her initial appointment in May, but canceled this due to work commitments. I agree with treating her supportively as you are doing and she will be seen in followup. Thanks for asking me to see her. I will follow her in the hospital as needed. MD MUKUND Duran/TANIYA / [id number] MTDD
== END 2021-03-07 14:19 | disposition home or self-care (01) ==
LOC: HO.ED 03-06 03:01 → HO.EDOVER 03-06 04:02 → HO.IMC 03-06 07:14
PROVIDERS: Family Medicine; Admitting Provider Internal Medicine; Emergency Provider Emergency Medicine; PCP Internal Medicine; Visit Provider Internal Medicine
DX: K31.84 Gastroparesis (principal); N39.0 Urinary tract infection, site not specified; R11.2 Nausea with vomiting, unspecified; R10.13 Epigastric pain; E11.9 Type 2 diabetes mellitus without complications; E28.2 Polycystic ovarian syndrome; E04.1 Nontoxic single thyroid nodule; E89.0 Postprocedural hypothyroidism; R00.0 Tachycardia, unspecified; R55 Syncope and collapse; A69.23 Arthritis due to Lyme disease; Z20.822 Contact with and (suspected) exposure to COVID-19; Z88.1 Allergy status to other antibiotic agents; Z88.7 Allergy status to serum and vaccine; Z88.8 Allergy status to other drugs, medicaments and biological substances
CPT/HCPCS: 36415; 80048; 80076; 80307; 81001; 81025; 82947; 83036; 83690; 84484; 85025; 87040; 87086; 87635; 93005; 96361; 96365; 96372; 96375; 96376; 99219; 99284; 99285; J0696; J2270; J2405; J2550

== ENCOUNTER → 2021-04-11 10:57 | Outpatient (REF) | payer OTHER, SELFPAY ==
--- NOTE | 2021-04-11 11:01 | HM_ITS ---
REQUESTING PHYSICIAN: Jonna Roman PA-C INDICATION: Tachycardia. ENROLLMENT PERIOD: 04/11/2021, to 05/11/2021; 30 days. FINDINGS: In the above monitoring period, underlying rhythm is sinus. Rate ranged between 64 to 127 beats per minute. There were several episodes of sinus tachycardia seen throughout the monitoring period. One occasion of chest pain correlated with sinus tachycardia. No other symptoms documented. CONCLUSION: A 30-day monitor is positive for sinus rhythm and sinus tachycardia. Corey Rust MD HS/MODL / [id number]
== END ==
LOC: HO.CARD 10:57
PROVIDERS: Visit Provider Physician Assistant
DX: R00.0 Tachycardia, unspecified (principal)
CPT/HCPCS: 93270

== ENCOUNTER 2021-05-26 23:32 | Emergency (ER) | payer OTHER, SELFPAY ==
[2021-05-26 23:46] VITALS: BP 177/100; PULSE 120; RESP 18; TEMP 36.5; O2SAT 95; BMI 41.1
[2021-05-27 00:01] LABS: MANUAL DIFF FLAG NO
[2021-05-27 00:09] LABS: Basophils Percent Auto 0.2 % (0-2); Eosinophils Absolute Auto 0.1 X10*3/uL (0.0-0.4); Eosinophils Percent Auto 0.4 % (0-4); Hematocrit 41.5 % (37.0-47.0); Hemoglobin 13.9 g/dl (12.0-16.0); Imm Gran Abs Auto 0.05 X10*3/uL (0.00-0.03); Imm Gran Pct Auto 0.3 % (0.0-0.4); Lymphocytes Absolute Auto 3.1 X10*3/uL (1.2-4.9); Lymphocytes Percent Auto 21.6 % (20-40); Mean Corpuscular HGB Conc 33.5 g/dl (31.0-35.0); Mean Corpuscular Hemoglobin 29.2 pg (27.0-33.0); Mean Corpuscular Volume 87.2 fL (80.0-98.0); Mean Platelet Volume 9.6 fL (9.4-12.3); Monocytes Absolute Auto 0.8 X10*3/uL (0.1-1.2); Monocytes Percent Auto 5.5 % (2-11); Neutrophils Absolute Auto 10.3 x10*3/uL (2.0-8.3); Platelet Count 428 X10*3/uL (160-400); Red Blood Count 4.76 X10*6/uL (4.20-5.50); Red Cell Distribution Width 13.2 % (11.0-16.0); White Blood Count 14.3 X10*3/uL (4.8-10.8)
[2021-05-27 00:20] LABS: Alanine Aminotransferase 22 U/L (0-31); Albumin Level 4.2 g/dL (3.5-5.0); Alkaline Phosphatase 75 U/L (39-117); Anion Gap 13 (12-20); Aspartate Amino Transferase 14 U/L (5-31); Bilirubin Total 0.4 mg/dL (0.0-1.0); Blood Urea Nitrogen 17 mg/dL (9-16); Calcium 9.5 mg/dL (8.4-10.2); Carbon Dioxide 21 mmol/L (22-29); Chloride 107 mmol/L (96-108); Estimated Glomerular Filt Rate > 60; Glucose Random 200 mg/dL (60-115); Potassium 4.3 mmol/L (3.3-5.1); Sodium 137 mmol/L (135-145); Total Protein 7.6 g/dL (6.5-8.0)
== END 2021-05-27 04:40 | disposition left against medical advice (07) ==
PROVIDERS: Emergency Provider Emergency Medicine
DX: R10.9 Unspecified abdominal pain (principal)
CPT/HCPCS: 36415; 80053; 85025; 99282; 99283

== ENCOUNTER 2021-10-20 14:23 | Emergency (ER) | payer OTHER, SELFPAY ==
--- NOTE | ~2021-10-20 | CT_ITS ---
EXAMINATION: CT ABDOMEN AND PELVIS WITHOUT CONTRAST CLINICAL INFORMATION: Right flank pain COMPARISON: CT abdomen pelvis with contrast 08/26/2019 TECHNIQUE: Multidetector volumetric imaging was performed from the superior aspect of the liver through the pubic symphysis. Sagittal and coronal reformatted images were obtained on the technologist's workstation. This CT examination was performed using dose optimization techniques as appropriate, variously including the following: *Automated exposure control *Adjustment of mA and/or kV according to patient size (this includes techniques or standardized protocols for targeted exams where dose is matched to indication/reason for exam; i.e. extremities or head) *Use of iterative reconstruction technique DLP: 740 mGy-cm FINDINGS: LUNG BASES: The lung bases are clear. Heart size is normal. LIVER, GALLBLADDER, AND BILIARY TREE: The liver is normal in size, shape, and attenuation. No focal hepatic lesion or biliary ductal dilatation is present. The gallbladder has been surgically removed. PANCREAS: Unremarkable. SPLEEN: Unremarkable. ADRENAL GLANDS: Unremarkable. KIDNEYS AND URETERS: The kidneys are normal in size, shape, and attenuation. No hydronephrosis, hydroureter, or calculi seen. No perinephric stranding. BLADDER: Unremarkable. GASTROINTESTINAL TRACT: There is scattered stool and gas seen throughout the colon without significant distention. The small bowel loops are normal caliber. Appendix is not visualized. No inflammatory changes seen in the abdomen ABDOMINAL WALL: No significant hernia is appreciated. LYMPH NODES: Normal. VASCULAR: Unremarkable. PELVIC VISCERA: The uterus is anteverted and appears unremarkable. There are prominent bilateral symmetrical ovaries. There are unchanged to the previous exam. No free fluid. No abnormal pelvic or inguinal lymph nodes. OSSEOUS STRUCTURES: Unremarkable. CT/CT abdomen pelvis wo con IMPRESSION: No acute intra-abdominal process seen. There is no radiopaque urolith or hydronephrosis. Appendix is not seen however there is no inflammatory process in the right lower quadrant. No major change compared to previous study 08/26/2019 Fleischner guidelines were followed.
[2021-10-20 14:34] VITALS: BP 148/88; PULSE 100; RESP 19; TEMP 36.6; O2SAT 98; BMI 41.1
[2021-10-20 14:48] LABS: MANUAL DIFF FLAG NO
[2021-10-20 14:51] LABS: Appearance Urine CLEAR; Basophils Percent Auto 0.4 % (0-2); Color Urine YELLOW; Eosinophils Absolute Auto 0.1 X10*3/uL (0.0-0.4); Eosinophils Percent Auto 1.2 % (0-4); Glucose Urine UA 500 MG/DL (NEG); Hematocrit 40.6 % (37.0-47.0); Hemoglobin 13.6 g/dl (12.0-16.0); Imm Gran Abs Auto 0.03 X10*3/uL (0.00-0.03); Imm Gran Pct Auto 0.3 % (0.0-0.4); Leukocyte Esterase Urine NEG (NEG); Lymphocytes Absolute Auto 3.7 X10*3/uL (1.2-4.9); Lymphocytes Percent Auto 37.5 % (20-40); Mean Corpuscular HGB Conc 33.5 g/dl (31.0-35.0); Mean Corpuscular Hemoglobin 28.9 pg (27.0-33.0); Mean Corpuscular Volume 86.2 fL (80.0-98.0); Mean Platelet Volume 9.7 fL (9.4-12.3); Monocytes Absolute Auto 0.4 X10*3/uL (0.1-1.2); Monocytes Percent Auto 4.2 % (2-11); Neutrophils Absolute Auto 5.5 x10*3/uL (2.0-8.3); Neutrophils Percent Auto 56.4 % (45-73); Nitrite Urine NEG (NEG); Platelet Count 384 X10*3/uL (160-400); Red Blood Count 4.71 X10*6/uL (4.20-5.50); Red Cell Distribution Width 12.5 % (11.0-16.0); Specific Gravity - Urine 1.025 (1.005-1.025); Urine Blood NEG (NEG); Urine Ketones NEG (NEG); Urine Protein NEG (NEG-TRACE); White Blood Count 9.8 X10*3/uL (4.8-10.8)
[2021-10-20 14:53] LABS: Urine Pregnancy NEGATIVE (NEGATIVE)
[2021-10-20 14:54] LABS: UPreg QC Valid YES
[2021-10-20 15:04] LABS: Alanine Aminotransferase 26 U/L (0-31); Albumin Level 4.3 g/dL (3.5-5.0); Alkaline Phosphatase 67 U/L (39-117); Anion Gap 15 (12-20); Aspartate Amino Transferase 15 U/L (5-31); Bilirubin Direct < 0.2 mg/dL (0.0-0.5); Bilirubin Total 0.3 mg/dL (0.0-1.0); Blood Urea Nitrogen 13 mg/dL (9-16); Calcium 9.5 mg/dL (8.4-10.2); Carbon Dioxide 22 mmol/L (22-29); Chloride 102 mmol/L (96-108); Creatinine Clr Calc Pharmacy 83.5; Estimated Glomerular Filt Rate > 60; Glucose Random 244 mg/dL (60-115); Lipase 47 U/L (8-78); Potassium 3.8 mmol/L (3.3-5.1); Sodium 135 mmol/L (135-145); Total Protein 7.5 g/dL (6.5-8.0)
[2021-10-20 20:25] VITALS: BP 141/86; PULSE 95; RESP 18; O2SAT 96
--- NOTE | 2021-10-20 20:30 | ED.ABDPAIN ---
HPI - Abdominal Pain General Chief Complaint: Abdominal Pain Stated Complaint: abd pain and back pain Time Seen by Provider: 10/20/21 20:30 Source: patient Mode of arrival: ambulatory Limitations: no limitations History of Present Illness MD elicited complaint: abdominal pain and flank pain Pertinent past history: none Onset (ago): day(s) (this morning) Pain Consistency: constant Location: R flank (R sided abdominal pain) Severity: moderate Quality: other (pain) Radiation: none Migration to: no migration Exacerbating factors: nothing Relieving factors: nothing Associated symptoms: nausea (resolved now) Related Data Home Medications Medication Instructions Recorded Confirmed bupropion HCl 150 mg tablet,12 hr 150 mg PO BID 03/06/21 03/06/21 sustained-release Previous Rx's Medication Instructions Recorded cefuroxime axetil 250 mg tablet 250 mg PO BID 4 days #8 tabs 03/07/21 ondansetron 4 mg disintegrating 4 mg PO Q8H 4 days #12 tabs 03/07/21 tablet ondansetron 4 mg disintegrating 4 mg PO Q8H PRN nausea and 10/20/21 tablet vomiting #20 tabs Allergies Allergy/AdvReac Type Severity Reaction Status Date / Time influenza virus vaccine, Allergy Mild UNKNOWN Verified 10/20/21 20:30 specific [FLU VACCINE] doxycycline [DOXYCYCLINE] Allergy Unknown SWELLING Verified 10/20/21 20:30 vancomycin [VANCOMYCIN] Allergy Unknown ANAPHYLAXIS Verified 10/20/21 20:30 metoclopramide [From Reglan] Allergy Unknown Verified 10/20/21 20:30 Review of Systems Review of Systems Constitutional : No Weight loss, No Fever, No Chills ENT/Mouth : No sore throat, No Rhinorrhea Eyes: No Swelling, No Redness Cardiovascular : No Chest Pain, No SOB, NoEdema Respiratory : No Cough, No Sputum, No Wheezing Gastrointestinal : no Nausea, no Vomiting, no Diarrhea, positive abdominal Pain, No Hematochezia, No Melena Genitourinary : No Dysuria, No Urinary Frequency, No Hematuria, No Urgency Musculoskeletal : No joint pain, No Myalgias, No Joint Swelling Skin : No Skin Lesions, No rash Neuro : No Weakness, No Numbness, No Dizziness, No Headache Psych : No Anxiety/Panic, No Depression Heme/Lymph: No Bruising, No Lymphadenopathy Endocrine : No Polyuria, No Polydipsia All other systems reviewed and are negative. PMFSH Past Medical History Attestation statement: The following information was validated with the patient. Medical History (Updated 10/20/21 @ 21:32 by Maria Eugenia Arzate DO) Cholecystectomy planned Gastroparesis Lyme disease Osteoarthritis PCOS (polycystic ovarian syndrome) Pre-diabetes Surgical History (Updated 10/20/21 @ 20:37 by Maria Eugenia Arzate DO) H/O partial thyroidectomy History of cholecystectomy Social History Social History Alcohol intake: current Alcohol intake frequency: holidays/special occasions only Patient Tobacco Use Status: Never used Tobacco Use of substances other than those prescribed or required for medical reasons: No Advance Directives: No Advance Directives Information Provided: Yes Patient : No Current occupational status: employed Physical Exam ED Vital Signs: Vital Signs - 24 hr 10/20/21 14:34 10/20/21 20:25 Temperature 98 F Pulse Rate 100 95 Respiratory Rate 19 18 Blood Pressure 148/88 H 141/86 H Pulse Oximetry 98 96 Oxygen Delivery Method Room Air Room Air BMI result Body Mass Index 41.1 Appearance: Alert. Oriented X3. No acute distress. Eyes: Pupils equal, round and reactive to light. ENT: Pharynx normal. Neck: Normal inspection. Neck supple. CVS: Normal heart rate and rhythm. Pulses normal. Respiratory: No respiratory distress. Breath sounds normal. Abdomen: Soft and mild R sided abdominal pain no rebound Skin: Skin warm and dry. Normal skin color. Normal skin turgor. Extremities: No lower extremity edema. No calf ttp Neuro: Oriented X 3. No motor deficit. No sensory deficit. Course Course Course Narrative: CT scan negative at this time, labs stable, can be DC, feels much better at this time doubt appendicitis no acute findings stable for DC at this time MDM - Abdominal Pain MDM Narrative Medical decision making narrative: 31 yo female with hx of gastroparesis, s/p cholecystectomy here with c/o R sided abdominal pain resolved nausea since this AM - doesn't feel like her gastroparesis. At this time will need labs, UA, IV toradol/morphine for pain. CT scan for appendicitis/renal colic. Dispo per results and findings. Lab Data Result diagrams: 10/20/21 14:44 10/20/21 14:44 Labs: Lab Results 06/02/0210/20/21 10/20/21 Range/Units 14:44 14:44 14:44 WBC 9.8 (4.8-10.8) X10*3/uL RBC 4.71 (4.20-5.50) X10*6/uL Hgb 13.6 (12.0-16.0) g/dl Hct 40.6 (37.0-47.0) % MCV 86.2 (80.0-98.0) fL MCH 28.9 (27.0-33.0) pg MCHC 33.5 (31.0-35.0) g/dl RDW 12.5 (11.0-16.0) % Plt Count 384 (160-400) X10*3/uL MPV 9.7 (9.4-12.3) fL Immature Gran % (Auto) 0.3 (0.0-0.4) % Neut % (Auto) 56.4 (45-73) % Lymph % (Auto) 37.5 (20-40) % Cocke % (Auto) 4.2 (2-11) % Eos % (Auto) 1.2 (0-4) % Baso % (Auto) 0.4 (0-2) % Lymph # (Auto) 3.7 (1.2-4.9) X10*3/uL Cocke # (Auto) 0.4 (0.1-1.2) X10*3/uL Eos # (Auto) 0.1 (0.0-0.4) X10*3/uL Baso # (Auto) 0.0 (0.0-0.2) X10*3/uL Abs Immat Gran (auto) 0.03 (0.00-0.03) X10*3/uL Absolute Neuts (auto) 5.5 (2.0-8.3) x10*3/uL Absolute Nucleated RBC 0.000 (0.0-0.012) X10*3/uL Nucleated RBC % (auto) 0.0 (0.0-0.2) /100WBC Sodium 135 (135-145) mmol/L Potassium 3.8 (3.3-5.1) mmol/L Chloride 102 (96-108) mmol/L Carbon Dioxide 22 (22-29) mmol/L Anion Gap 15 (12-20) BUN 13 (9-16) mg/dL Creatinine 0.88 (0.5-1.4) mg/dL Estim Creat Clear Calc 83.5 Estimated GFR > 60 Random Glucose 244 H (60-115) mg/dL Calcium 9.5 (8.4-10.2) mg/dL Total Bilirubin 0.3 (0.0-1.0) mg/dL Direct Bilirubin < 0.2 (0.0-0.5) mg/dL AST 15 (5-31) U/L ALT 26 (0-31) U/L Alkaline Phosphatase 67 (39-117) U/L Total Protein 7.5 (6.5-8.0) g/dL Albumin 4.3 (3.5-5.0) g/dL Lipase 47 (8-78) U/L Urine Color YELLOW Urine Appearance CLEAR Urine pH 6.0 (5.0-8.0) Ur Specific [place] 1.025 (1.005-1.025) Urine Protein NEG (NEG-TRACE) MG/DL Urine Glucose (UA) 500 H (NEG) MG/DL Urine Ketones NEG (NEG) MG/DL Urine Blood NEG (NEG) Urine Nitrite NEG (NEG) Ur Leukocyte Esterase NEG (NEG) Urine Test (NEGATIVE) 10/20/21 Range/Units 14:44 WBC (4.8-10.8) X10*3/uL RBC (4.20-5.50) X10*6/uL Hgb (12.0-16.0) g/dl Hct (37.0-47.0) % MCV (80.0-98.0) fL MCH (27.0-33.0) pg MCHC (31.0-35.0) g/dl RDW (11.0-16.0) % Plt Count (160-400) X10*3/uL MPV (9.4-12.3) fL Immature Gran % (Auto) (0.0-0.4) % Neut % (Auto) (45-73) % Lymph % (Auto) (20-40) % Cocke % (Auto) (2-11) % Eos % (Auto) (0-4) % Baso % (Auto) (0-2) % Lymph # (Auto) (1.2-4.9) X10*3/uL [place] # (Auto) (0.1-1.2) X10*3/uL Eos # (Auto) (0.0-0.4) X10*3/uL Baso # (Auto) (0.0-0.2) X10*3/uL Abs Immat Gran (auto) (0.00-0.03) X10*3/uL Absolute Neuts (auto) (2.0-8.3) x10*3/uL Absolute Nucleated RBC (0.0-0.012) X10*3/uL Nucleated RBC % (auto) (0.0-0.2) /100WBC Sodium (135-145) mmol/L Potassium (3.3-5.1) mmol/L Chloride (96-108) mmol/L Carbon Dioxide (22-29) mmol/L Anion Gap (12-20) BUN (9-16) mg/dL Creatinine (0.5-1.4) mg/dL Estim Creat Clear Calc Estimated GFR Random Glucose (60-115) mg/dL Calcium (8.4-10.2) mg/dL Total Bilirubin (0.0-1.0) mg/dL Direct Bilirubin (0.0-0.5) mg/dL AST (5-31) U/L ALT (0-31) U/L Alkaline Phosphatase (39-117) U/L Total Protein (6.5-8.0) g/dL Albumin (3.5-5.0) g/dL Lipase (8-78) U/L Urine Color Urine Appearance Urine pH (5.0-8.0) Ur Specific [place] (1.005-1.025) Urine Protein (NEG-TRACE) MG/DL Urine Glucose (UA) (NEG) MG/DL Urine Ketones (NEG) MG/DL Urine Blood (NEG) Urine Nitrite (NEG) Ur Leukocyte Esterase (NEG) Urine Test NEGATIVE (NEGATIVE) Discharge Plan Discharge Clinical Impression: Right flank pain Patient Disposition: Home, Self-Care Instructions: Flank Pain (ED) Additional Instructions: return to ED for any worsening symptoms or concerns CT/CT abdomen pelvis wo con IMPRESSION: No acute intra-abdominal process seen. ? There is no radiopaque urolith or hydronephrosis. ? Appendix is not seen however there is no inflammatory process in the right lower quadrant. ? No major change compared to previous study 08/26/2019? ? Fleischner guidelines were followed. Prescriptions: New ondansetron 4 mg tablet,disintegrating 4 mg PO Q8H PRN (Reason: nausea and vomiting) Qty: 20 0RF No Action bupropion HCl 150 mg tablet sustained-release 12 hr 150 mg PO BID cefuroxime axetil 250 mg tablet 250 mg PO BID 4 Days Qty: 8 0RF ondansetron 4 mg tablet,disintegrating 4 mg PO Q8H 4 Days Qty: 12 0RF Referrals: Juan Chou MD [Primary Care Provider] - 2 days (if not better) Stand Alone Forms: Work/School Release
[2021-10-20] MEDS: 0.9 % Sodium Chloride 1,000 ML 999 ML IV (21:14)
[2021-10-20] MEDS: Morphine Sulfate 4 MG/ML CARTRIDGE IVPUSH (21:18)
[2021-10-20] MEDS: Ketorolac Tromethamine 30 MG/ML VIAL IVPUSH (21:18)
[2021-10-20] MEDS: ondansetron HCL 4 MG/2 ML VIAL IVPUSH (21:18)
[2021-10-20 22:29] VITALS: BP 118/73; PULSE 83; RESP 16; TEMP 36.6; O2SAT 96
== END 2021-10-20 22:40 | disposition home or self-care (01) ==
PROVIDERS: Emergency Provider Emergency Medicine; PCP Internal Medicine
DX: R10.9 Unspecified abdominal pain (principal)
CPT/HCPCS: 36415; 74176; 80048; 80076; 81003; 81025; 83690; 85025; 96361; 96374; 96375; 99284; J1885; J2270; J2405

== ENCOUNTER 2022-03-04 10:53 | Outpatient (REF) | payer OTHER, SELFPAY ==
[2022-03-06 07:42] LABS: DHEA Sulfate 154 mcg/dL (19-237); Follicle Stimulating Hormone 8.9 mIU/mL; Lutenizing Hormone 11.2 mIU/mL; Prolactin 10.2 ng/mL
[2022-03-12 04:57] LABS: Estradiol Free 1.08 pg/mL; Estradiol, Ultrasensitive 44 pg/mL
[2022-03-21 18:53] LABS: Testosterone, Free 8.1 pg/mL (0.1-6.4); Testosterone, Total 37 ng/dL (2-45)
== END 2022-03-04 10:54 | disposition home or self-care (01) ==
LOC: HO.LAB 10:53
PROVIDERS: PCP Internal Medicine; Visit Provider Physician Assistant
DX: E28.2 Polycystic ovarian syndrome (principal)
CPT/HCPCS: 36415; 82627; 82670; 82681; 83001; 83002; 84146; 84402; 84403

== ENCOUNTER 2022-03-10 14:54 | Outpatient (REF) | payer OTHER, SELFPAY ==
--- NOTE | ~2022-03-10 | MM_ITS ---
EXAMINATION: MM DIAGNOSTIC DIGITAL BREAST TOMOSYNTHESIS, BILATERAL US TARGETED BREAST, RIGHT CLINICAL INFORMATION: Right breast density. The lifetime risk of breast cancer based on the Tyrer-Cuzick Model is 14.1%. COMPARISON: Mammography: 05/19/2021 and 11/19/2020. TECHNIQUE: Digital breast tomosynthesis is performed in both the craniocaudal and mediolateral oblique views along with computer-aided detection (CAD). Synthesized 2-D images are generated from the tomosynthesis. Targeted right breast ultrasound. FINDINGS: There are scattered areas of fibroglandular density (ACR BI-RADS breast composition Category b). Left breast has a stable parenchymal pattern without new abnormal dominant mass or suspicious grouping of microcalcifications. Within the anterior-inferior aspect of the right breast there is again noted to be a well-circumscribed 7 x 5 mm density without spiculation or associated microcalcifications. This appears unchanged to prior studies. ULTRASOUND: Targeted right breast ultrasound was performed with no abnormal cystic or solid mass being identified. No region of abnormal distal sound shadowing or edema within the parenchyma is seen. Results are discussed with the patient at time of visit. MM/MM tomosynthesis diagnostic BI IMPRESSION: Stable appearance of right breast density. Recommend 6 month follow up right breast mammogram to ensure stability. ASSESSMENT: BI-RADS 3: Probably Benign. RECOMMENDATION: Diagnostic mammography in 6 months. This patient's information was entered into a reminder system with a target due date for their next mammogram.
== END 2022-03-10 14:55 | disposition home or self-care (01) ==
LOC: HO.MAMMO 14:54
PROVIDERS: PCP Internal Medicine; Visit Provider Internal Medicine
DX: N60.01 Solitary cyst of right breast (principal)
CPT/HCPCS: 76642; 77062; 77066

== ENCOUNTER 2022-06-28 16:21 | Outpatient (REF) | payer OTHER, SELFPAY ==
--- NOTE | ~2022-06-28 | XR_ITS ---
EXAMINATION: XR CHEST CLINICAL INFORMATION: Chronic cough. COMPARISON: Chest radiograph 05/04/2012. TECHNIQUE: 2 views of the chest were obtained. FINDINGS: Normal appearance of the cardiomediastinal silhouette. No focal airspace opacity, pleural effusion or pneumothorax. Surgical clips are redemonstrated in the right neck. No acute osseous abnormalities. The visualized upper abdomen is within normal limits. Right upper quadrant cholecystectomy clips are noted. XR/XR chest 2V IMPRESSION: No acute cardiopulmonary findings.
== END 2022-06-28 16:22 | disposition home or self-care (01) ==
LOC: HO.XRAY 16:21
PROVIDERS: Visit Provider Physician Assistant
DX: R05.3 Chronic cough (principal)
CPT/HCPCS: 71046

== ENCOUNTER 2022-07-08 12:39 | Emergency (ER) | payer OTHER, SELFPAY ==
--- NOTE | ~2022-07-08 | CT_ITS ---
EXAMINATION: CT CERVICAL SPINE WITHOUT CONTRAST CLINICAL INFORMATION: Head trauma. Neck pain. COMPARISON: None TECHNIQUE: Axial imaging. Sagittal and coronal reconstructions. This CT examination was performed using dose optimization techniques as appropriate, variously including the following: *Automated exposure control *Adjustment of mA and/or kV according to patient size (this includes techniques or standardized protocols for targeted exams where dose is matched to indication/reason for exam; i.e. extremities or head) *Use of iterative reconstruction technique DLP: 1161 mGy-cm FINDINGS: Straightening of the cervical curvature. There is anatomic alignment of the vertebral bodies and posterior elements. The atlantoaxial and atlantooccipital articulations are maintained. Vertebral body heights are maintained. No evidence of acute fracture. Disc spaces are maintained. No prevertebral soft tissue swelling. There are multiple nonspecific lymph nodes in the visualized neck. More prominent lymph node measures 1.1 cm in short axis, image 12:180. The right thyroid lobe is not visualized. There are surgical clips present. This could reflect postsurgical result. Lung apices are clear. CT/CT cervical spine wo IV con IMPRESSION: 1. No CT evidence of acute fracture malalignment. 2. Multiple nonspecific shotty lymph nodes in the neck. More prominent lymph node measures 1.1 cm in short axis, as described above. Recommend clinical correlation and management. 3. Right thyroid lobe is not visualized. Correlate with prior clinical history, surgical history. Fleischner guidelines were followed.
--- NOTE | ~2022-07-08 | CT_ITS ---
EXAMINATION: CT HEAD WITHOUT CONTRAST CLINICAL INFORMATION: Trauma. Blurry vision. COMPARISON: No relevant prior imaging. TECHNIQUE: Contiguous axial imaging was performed from the skull base to vertex without intravenous administration of contrast. This CT examination was performed using dose optimization techniques as appropriate, variously including the following: *Automated exposure control *Adjustment of mA and/or kV according to patient size (this includes techniques or standardized protocols for targeted exams where dose is matched to indication/reason for exam; i.e. extremities or head) *Use of iterative reconstruction technique DLP: 1161 mGy-cm FINDINGS: There is gliosis and cystic encephalomalacia involving the left precentral gyrus and the left insular cortex causing asymmetric widening of the left sylvian fissure. Bishop-white matter differentiation is otherwise grossly preserved and there is no evidence of acute territorial infarct. No acute hemorrhage or abnormal extra-axial collection. Lateral and third ventricles are normal. No hydrocephalus. The calvarium and skull base are intact. Mastoid air cells and middle ear cavities are well aerated. No active paranasal sinus disease. 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 Comparison with prior imaging is recommended to assess the stability of this finding. Otherwise unremarkable examination in that there is no evidence of acute territorial infarct or hemorrhage. No intracranial mass effect or hydrocephalus.
--- NOTE | ~2022-07-08 | XR_ITS ---
EXAMINATION: XR LUMBOSACRAL SPINE CLINICAL INFORMATION: Injury COMPARISON: None TECHNIQUE: Three views of the lumbosacral spine. FINDINGS: The vertebral bodies and posterior elements are normal. The disc spaces are preserved and the vertebral alignment is normal. The paraspinal soft tissues are normal. XR/XR lumbar spine 2-3V IMPRESSION: No fracture. Bone alignments are satisfactory.
[2022-07-08 13:09] VITALS: BP 128/78; BP 141/93; PULSE 104; PULSE 97; RESP 16; TEMP 36.7; O2SAT 98; BMI 37.2
--- NOTE | 2022-07-08 13:10 | ED.HEATRA ---
HPI - Head Injury General Chief complaint: General Medical Stated complaint: LOW BACK PAIN S/P SLIP/FALL ON ICE PER EMS Time Seen by Provider: 07/08/22 13:08 Source: patient Mode of arrival: EMS Limitations: no limitations History of Present Illness HPI Narrative: Patient was walking and slipped going down the stairs and hit her head on the step and her lower back on the lower step. Patient was able to get up, no LOC. Patient with blurred vision and her back was hurting her. Patient denies . MD Complaint: head injury Arrival Conditions: C-spine immobilization present Mechanism of Injury: fall Place: home Loss of Consciousness: no Related Data Home Medications Medication Instructions Recorded Confirmed bupropion HCl 150 mg tablet,12 hr 150 mg PO BID 03/06/21 03/06/21 sustained-release Previous Rx's Medication Instructions Recorded cefuroxime axetil 250 mg tablet 250 mg PO BID 4 days #8 tabs 03/07/21 ondansetron 4 mg disintegrating 4 mg PO Q8H 4 days #12 tabs 03/07/21 tablet ondansetron 4 mg disintegrating 4 mg PO Q8H PRN nausea and 10/20/21 tablet vomiting #20 tabs Allergies Allergy/AdvReac Type Severity Reaction Status Date / Time influenza virus vaccine, Allergy Mild UNKNOWN Verified 10/20/21 20:30 specific [FLU VACCINE] doxycycline [DOXYCYCLINE] Allergy Unknown SWELLING Verified 10/20/21 20:30 vancomycin [VANCOMYCIN] Allergy Unknown ANAPHYLAXIS Verified 10/20/21 20:30 metoclopramide [From Reglan] Allergy Unknown Verified 10/20/21 20:30 Review of Systems Review of Systems: Yes all other systems are reviewed and are negative ENT: Comments: Head and neck pain Musculoskeletal: Comments: back pain PMFSH Past Medical History Medical History (Updated 07/08/22 @ 16:17 by Oleg Curry MD) Cholecystectomy planned Gastroparesis Lyme disease Osteoarthritis PCOS (polycystic ovarian syndrome) Pre-diabetes Surgical History (Updated 10/20/21 @ 20:37 by Shante Arzate DO) H/O partial thyroidectomy History of cholecystectomy Social History Social History Alcohol intake: current Alcohol intake frequency: holidays/special occasions only Patient Tobacco Use Status: Never used Tobacco Advance Directives: No Advance Directives Information Provided: Yes Current occupational status: employed Physical Exam Vital Signs: Vital Signs: Last Vital Signs Temp 98.2 F 07/08/22 15:59 Pulse 99 07/08/22 15:59 Resp 16 07/08/22 15:59 BP 135/95 H 07/08/22 15:59 Pulse Ox 98 07/08/22 15:59 O2 Del Method 07/08/22 15:59 BMI result Body Mass Index 37.2 Medical Decision Making Differential Diagnosis Differential Diagnoses: The differential diagnosis associated with the presentation includes (cerebral bleed, head contusion, neck sprain, neck fracture, lumbar contusion, lumbar fracture) Independent Interpretation I performed an independent interpretation of an: Plain X-Ray (lumbar: no fracture) Radiology Impression Discussion of test interpretation with radiology: I have reviewed the radiologist's reading. (head CT and cervical CT) Discharge Plan Discharge Clinical Impression: Contusion of head, Cervical sprain, Back contusion Patient Disposition: Home, Self-Care Instructions: Contusion in Adults (ED), Cervical Sprain (ED) Additional Instructions: ice 20 minutes off and on september alternate tylenol and motrin every 3 hours for pain Prescriptions: No Action bupropion HCl 150 mg tablet sustained-release 12 hr 150 mg PO BID cefuroxime axetil 250 mg tablet 250 mg PO BID 4 Days Qty: 8 0RF ondansetron 4 mg tablet,disintegrating 4 mg PO Q8H 4 Days Qty: 12 0RF ondansetron 4 mg tablet,disintegrating 4 mg PO Q8H PRN (Reason: nausea and vomiting) Qty: 20 0RF Referrals: Jonna Roman PA [Primary Care Provider] - 1 week
[2022-07-08 15:59] VITALS: BP 135/95; PULSE 99; RESP 16; TEMP 36.8; O2SAT 98
== END 2022-07-08 16:31 | disposition home or self-care (01) ==
PROVIDERS: Emergency Provider Emergency Medicine; PCP Physician Assistant
DX: S00.93XA Contusion of unspecified part of head, initial encounter (principal); S13.4XXA Sprain of ligaments of cervical spine, initial encounter; S30.0XXA Contusion of lower back and pelvis, initial encounter; W10.8XXA Fall (on) (from) other stairs and steps, initial encounter; Z79.899 Other long term (current) drug therapy; Y93.9 Activity, unspecified; Y92.018 Other place in single-family (private) house as the place of occurrence of the external cause; Y99.9 Unspecified external cause status
CPT/HCPCS: 70450; 72100; 72125; 99283; 99284

== ENCOUNTER 2022-09-12 12:48 | Outpatient (REF) | payer OTHER, SELFPAY ==
--- NOTE | ~2022-09-12 | MM_ITS ---
EXAMINATION: MM DIAGNOSTIC DIGITAL BREAST TOMOSYNTHESIS, RIGHT CLINICAL INFORMATION: 32-year-old for short interval follow-up probable benign nodular asymmetry anterior right breast initially noted on outside baseline diagnostic for an unrelated clinical finding. The lifetime risk of breast cancer based on the Tyrer-Cuzick Model is 14%. COMPARISON: Mammography and right breast ultrasound: 03/10/2022. Outside breast imaging [facility] Toney: Mammography 05/19/2021, 11/19/2020 (diagnostic, BI-RADS 3); right breast ultrasound 11/19/2020. TECHNIQUE: Digital breast tomosynthesis is performed in both the craniocaudal and mediolateral oblique views along with computer-aided detection (CAD). Synthesized 2D images are generated from the tomosynthesis. Additional right CC view is provided. FINDINGS: There are scattered areas of fibroglandular density (ACR BI-RADS breast composition Category b). Right breast parenchymal pattern is similar to prior exams. The benign-appearing nodularity anterior breast is similar to prior exams. There is no developing density or interval architectural abnormality. No abnormal calcifications. Remainder right breast unremarkable. Results are provided to the patient at time of visit by the technologist. Right breast nodule will be reassessed again at time of annual bilateral mammography in 6 months to conclude long-term surveillance. MM/MM tomosynthesis diagnostic RT IMPRESSION: Benign-appearing nodularity anterior right breast stable. ASSESSMENT: BI-RADS 3: Probably Benign RECOMMENDATION: Bilateral diagnostic mammography in 6 months to conclude long-term surveillance. This patient's information was entered into a reminder system with a target due date for their next mammogram.
== END 2022-09-12 12:49 | disposition home or self-care (01) ==
LOC: HO.MAMMO 12:48
PROVIDERS: PCP Internal Medicine; Visit Provider Internal Medicine
DX: R92.8 Other abnormal and inconclusive findings on diagnostic imaging of breast (principal)
CPT/HCPCS: 77061; 77065

== ENCOUNTER 2022-11-20 13:43 | Outpatient (REF) | payer OTHER, SELFPAY ==
[2022-11-20 15:33] LABS: Iron 112 mcg/dL (30-160); Percent Iron Saturation 33 % (15-50); Total Iron Binding Capacity 335 mcg/dL (228-428); Unsaturated Iron Binding 223 ug/dL
[2022-11-20 15:50] LABS: Ferritin 41 ng/mL (10-122); Vitamin D 25-OH Total 22.6 ng/mL (>30)
[2022-11-20 15:52] LABS: Cortisol Random 10.8 ug/dL
[2022-11-20 16:04] LABS: Folate 5.3 ng/mL (> or = 4.0); Vitamin B12 230 pg/mL (200-900)
[2022-11-22 16:47] LABS: DHEA Sulfate 155 mcg/dL (19-237)
[2022-11-22 16:53] LABS: Follicle Stimulating Hormone 8.8 mIU/mL; Lutenizing Hormone 4.8 mIU/mL; Prolactin 9.1 ng/mL
[2022-11-22 23:19] LABS: Thyroglobulin Antibodies <1 IU/mL (< or = 1)
[2022-11-23 12:37] LABS: Thyroid Peroxidase Antibodies 1 IU/mL (<9)
[2022-11-24 12:49] LABS: Thyrotropin Receptor Antibody <1.00 IU/L (<=2.00)
[2022-11-24 23:14] LABS: Estradiol Ultra Sensitive 39 pg/mL
[2022-11-25 19:34] LABS: Testosterone, Free 6.5 pg/mL (0.1-6.4); Testosterone, Total 28 ng/dL (2-45)
== END 2022-11-20 13:44 | disposition home or self-care (01) ==
LOC: HO.LAB 13:43
PROVIDERS: PCP Physician Assistant; Visit Provider Physician Assistant
DX: L65.9 Nonscarring hair loss, unspecified (principal); E28.2 Polycystic ovarian syndrome; L63.0 Alopecia (capitis) totalis
CPT/HCPCS: 36415; 82306; 82533; 82607; 82627; 82670; 82728; 82746; 83001; 83002; 83520; 83540; 84146; 84402; 84403; 86376; 86800

== ENCOUNTER 2022-12-18 23:51 | Emergency (ER) | payer OTHER, SELFPAY ==
[2022-12-19 00:39] VITALS: BP 146/99; PULSE 108; RESP 16; TEMP 36.7; O2SAT 98; BMI 33.5
[2022-12-19 01:30] VITALS: BP 145/99; PULSE 103; RESP 18; TEMP 36.7
[2022-12-19 01:33] LABS: Hematocrit 42.8 % (37.0-47.0); Hemoglobin 14.2 g/dl (12.0-16.0); Mean Corpuscular HGB Conc 33.2 g/dl (31.0-35.0); Mean Corpuscular Volume 87.5 fL (80.0-98.0); Mean Platelet Volume 9.2 fL (9.4-12.3); Platelet Count 407 X10*3/uL (160-400); Red Blood Count 4.89 X10*6/uL (4.20-5.50); Red Cell Distribution Width 12.9 % (11.0-16.0); White Blood Count 15.5 X10*3/uL (4.8-10.8)
[2022-12-19 01:35] LABS: Appearance Urine Cloudy; Color Urine Yellow; Glucose Urine UA Negative (Negative); Leukocyte Esterase Urine Small (1+) (Negative); Nitrite Urine Negative (Negative); PH 5.5 (5.0-9.0); Specific Gravity - Urine 1.025 (1.005-1.025); UMIC TRIGGER UACC YES; Urine Blood Negative (Negative); Urine Ketones Trace mg/dL (Negative); Urine Protein Negative (Neg-Trace)
[2022-12-19 01:37] LABS: Bacteria Urine 3+ (None Seen); UACC Culture Trigger YES
[2022-12-19 01:50] LABS: Alanine Aminotransferase 21 U/L (0-31); Albumin Level 4.2 g/dL (3.5-5.0); Alkaline Phosphatase 66 U/L (39-117); Anion Gap 12 (12-20); Aspartate Amino Transferase 12 U/L (5-31); Bilirubin Total 0.3 mg/dL (0.0-1.0); Blood Urea Nitrogen 11 mg/dL (9-16); Calcium 9.2 mg/dL (8.4-10.2); Carbon Dioxide 20 mmol/L (22-29); Chloride 109 mmol/L (96-108); Creatinine Clr Calc Pharmacy 66.7; Estimated Glomerular Filt Rate > 60; Glucose Random 161 mg/dL (60-115); Lipase 41 U/L (8-78); Potassium 4.1 mmol/L (3.3-5.1); Sodium 137 mmol/L (135-145); Total Protein 7.8 g/dL (6.5-8.0)
--- NOTE | 2022-12-19 01:57 | ED_ITS ---
HPI - Abdominal Pain General Chief Complaint: Abdominal Pain Stated Complaint: Abd pain Time Seen by Provider: 12/19/22 01:26 Source: patient and old records reviewed Mode of arrival: ambulatory Limitations: no limitations History of Present Illness HPI narrative: 32 yo female hx of idiopathic gastroparesis prior cholecystectomy at this time the patient notes started with typical bout of her symptoms felt cold projective vomiting and upper abdominal pain no change from prior episodes vomited all day no diarrhea and no fevers. usually takes dramamine but didn't help. MD elicited complaint: abdominal pain Pertinent past history: other (gastroparesis) Onset (ago): day(s) (1) Pain Consistency: constant Location: epigastric Severity: severe Quality: aching and fullness Radiation: none Migration to: no migration Exacerbating factors: eating Relieving factors: nothing Context: history of similar episodes Associated symptoms: nausea and vomiting Related Data Home Medications Medication Instructions Recorded Confirmed bupropion HCl 150 mg tablet,12 hr 150 mg PO BID 03/06/21 03/06/21 sustained-release Previous Rx's Medication Instructions Recorded cefuroxime axetil 250 mg tablet 250 mg PO BID 4 days #8 tabs 03/07/21 ondansetron 4 mg disintegrating 4 mg PO Q8H 4 days #12 tabs 03/07/21 tablet ondansetron 4 mg disintegrating 4 mg PO Q8H PRN nausea and 10/20/21 tablet vomiting #20 tabs promethazine 25 mg tablet 25 mg PO Q6H PRN nausea and 12/19/22 vomiting #20 tabs Allergies Allergy/AdvReac Type Severity Reaction Status Date / Time influenza virus vaccine, Allergy Mild UNKNOWN Verified 10/20/21 20:30 specific [FLU VACCINE] doxycycline [DOXYCYCLINE] Allergy Unknown SWELLING Verified 10/20/21 20:30 vancomycin [VANCOMYCIN] Allergy Unknown ANAPHYLAXIS Verified 10/20/21 20:30 metoclopramide [From Reglan] Allergy Unknown Verified 10/20/21 20:30 Review of Systems Review of Systems Constitutional : No Weight loss, No Fever, No Chills ENT/Mouth : No sore throat, No Rhinorrhea Eyes: No Swelling, No Redness Cardiovascular : No Chest Pain, No SOB, NoEdema Respiratory : No Cough, No Sputum, No Wheezing Gastrointestinal : Positive Nausea, Positive Vomiting, no Diarrhea, positive abdominal Pain, No Hematochezia, No Melena Genitourinary : No Dysuria, No Urinary Frequency, No Hematuria, No Urgency Musculoskeletal : No joint pain, No Myalgias, No Joint Swelling Skin : No Skin Lesions, No rash Neuro : No Weakness, No Numbness, No Dizziness, No Headache Psych : No Anxiety/Panic, No Depression Heme/Lymph: No Bruising, No Lymphadenopathy Endocrine : No Polyuria, No Polydipsia All other systems reviewed and are negative. [facility] Past Medical History Attestation statement: The following information was validated with the patient. Medical History Cholecystectomy planned Gastroparesis Lyme disease Osteoarthritis PCOS (polycystic ovarian syndrome) Pre-diabetes Surgical History H/O partial thyroidectomy History of cholecystectomy Social History Social History Alcohol intake: never Patient Tobacco Use Status: Never used Tobacco Smoked in Last 30 Days: No Use of substances other than those prescribed or required for medical reasons: No Advance Directives: No Advance Directives Information Provided: Yes Current occupational status: employed Physical Exam ED Vital Signs: Vital Signs - 24 hr 12/19/22 00:39 12/19/22 01:30 12/19/22 02:39 Temperature 98.0 F 98.1 F Pulse Rate 108 H 103 H Respiratory Rate 16 18 18 Blood Pressure 146/99 H 145/99 H Pulse Oximetry 98 Oxygen Delivery Method Room Air Room Air BMI result Body Mass Index 33.5 Appearance: Alert. Oriented X3. No acute distress. Eyes: Pupils equal, round and reactive to light. ENT: Pharynx normal. Neck: Normal inspection. Neck supple. CVS: Normal heart rate and rhythm. Pulses normal. Respiratory: No respiratory distress. Breath sounds normal. Abdomen: Soft and moderate epigastric ttp no rebound Skin: Skin warm and dry. Normal skin color. Normal skin turgor. Extremities: No lower extremity edema. No calf ttp Neuro: Oriented X 3. No motor deficit. No sensory deficit. Course Course Course Narrative: feels much better stable for DC Medical Decision Making Medical Decision Making MDM Narrative: 32 yo female hx of idiopathic gastroparesis prior cholecystectomy here with c/o typical bout of gastroparesis no CP/SOB no acute abdomen on physical exam no fevers no diarrhea at this time will obtain basic labs, hydrate and use phenergan and morphine. She has had this several times in past. No localizing symptoms on exam to suggest appendicitis. Differential Diagnosis Differential Diagnoses: The differential diagnosis associated with the presentation includes gastroparesis, gastritis, viral syndrome Admission/Observation Consideration of admission/observation: Escalation of care including admission/observation considered tolerating PO feels much better stable for DC Lab Data MDM Lab Attestation statement: I reviewed the patient's lab results. WBC chronic due to vomiting 12/19/22 01:12/19/22 01:26 Labs: Lab Results 12/19/22 12/19/22 12/19/22 Range/Units 01:26 01: 01:26 WBC 15.5 H (4.8-10.8) X10*3/uL RBC 4.89 (4.20-5.50) X10*6/uL Hgb 14.2 (12.0-16.0) g/dl Hct 42.8 (37.0-47.0) % MCV 87.5 (80.0-98.0) fL MCH 29.0 (27.0-33.0) pg MCHC 33.2 (31.0-35.0) g/dl RDW 12.9 (11.0-16.0) % Plt Count 407 H (160-400) X10*3/uL MPV 9.2 L (9.4-12.3) fL Absolute Nucleated RBC 0.000 (0.0-0.012) X10*3/uL Nucleated RBC % (auto) 0.0 (0.0-0.2) /100WBC Sodium 137 (135-145) mmol/L Potassium 4.1 (3.3-5.1) mmol/L Chloride 109 H (96-108) mmol/L Carbon Dioxide 20 L (22-29) mmol/L Anion Gap 12 (12-20) BUN 11 (9-16) mg/dL Creatinine 0.97 (0.5-1.4) mg/dL Estim Creat Clear Calc 66.7 Estimated GFR > 60 Random Glucose 161 H (60-115) mg/dL Calcium 9.2 (8.4-10.2) mg/dL Total Bilirubin 0.3 (0.0-1.0) mg/dL AST 12 (5-31) U/L ALT 21 (0-31) U/L Alkaline Phosphatase 66 (39-117) U/L Total Protein 7.8 (6.5-8.0) g/dL Albumin 4.2 (3.5-5.0) g/dL Lipase 41 (8-78) U/L Urine Color Yellow Urine Appearance Cloudy Urine pH 5.5 (5.0-9.0) Ur Specific [employer] 1.025 (1.005-1.025) Urine Protein Negative (Neg-Trace) mg/dL Urine Glucose (UA) Negative (Negative) mg/dL Urine Ketones Trace (Negative) mg/dL Urine Blood Negative (Negative) Urine Nitrite Negative (Negative) Ur Leukocyte Esterase Small (1+) H (Negative) Urine RBC 3-5 H (0-2) /HPF Urine WBC 11-20 H (0-5) /HPF Ur Squamous Epith Cells 11-20 (0-2) /HPF Urine Bacteria 3+ (None Seen) Hyaline Casts 3-5 (0-2) /LPF External Record Review External record reviewed: Inpatient record Prescription Management I considered prescription management with: Other (phenergan) Medications Administered Discontinued Medications Generic Name Dose Route Start Last Admin Trade Name Freq PRN Reason Stop Dose Admin Sodium Chloride 1,000 mls @ 999 mls/hr 12/19/22 02:00 12/19/22 03:57 Ns IV 12/19/22 03:00 Infused .Q1H1M SRI Infusion Promethazine HCl 12.5 mg/ 50.5 mls @ 202 mls/hr 12/19/22 01:47 12/19/22 02:59 Sodium Chloride IV 12/19/22 01:48 Infused ONCE ONE Infusion Morphine Sulfate 4 mg 12/19/22 01:47 12/19/22 02:39 Morphine Sulfate 4 Mg/Ml Cartridge IVPUSH 12/19/22 01:48 4 mg ONCE ONE Administration Protocol Discharge Plan Discharge Clinical Impression: Gastroparesis Patient Disposition: Home, Self-Care Instructions: Gastroparesis (ED) Additional Instructions: return for worsening symptoms, fevers, pain, diarrhea or any other concerns. Prescriptions: New promethazine 25 mg tablet 25 mg PO Q6H PRN (Reason: nausea and vomiting) Qty: 20 0RF No Action bupropion HCl 150 mg tablet sustained-release 12 hr 150 mg PO BID cefuroxime axetil 250 mg tablet 250 mg PO BID 4 Days Qty: 8 0RF ondansetron 4 mg tablet,disintegrating 4 mg PO Q8H 4 Days Qty: 12 0RF ondansetron 4 mg tablet,disintegrating 4 mg PO Q8H PRN (Reason: nausea and vomiting) Qty: 20 0RF
[2022-12-19 02:39] VITALS: RESP 18
[2022-12-19] MEDS: 0.9 % Sodium Chloride 1,000 ML 999 ML IV (02:39)
[2022-12-19] MEDS: Morphine Sulfate 4 MG/ML CARTRIDGE IVPUSH (02:39)
== END 2022-12-19 04:44 | disposition home or self-care (01) ==
PROVIDERS: Emergency Provider Emergency Medicine; PCP Internal Medicine
DX: K31.84 Gastroparesis (principal); R11.2 Nausea with vomiting, unspecified; Z79.899 Other long term (current) drug therapy
CPT/HCPCS: 36415; 80053; 81001; 83690; 85027; 87086; 96361; 96374; 96375; 99284; J2270; J2550

== ENCOUNTER 2023-01-01 14:42 | Outpatient (REF) | payer OTHER, SELFPAY ==
[2023-01-01 17:45] LABS: MANUAL DIFF FLAG NO
[2023-01-01 17:51] LABS: Basophils Percent Auto 0.5 % (0-2); Eosinophils Absolute Auto 0.1 X10*3/uL (0.0-0.4); Eosinophils Percent Auto 1.5 % (0-4); Hematocrit 39.7 % (37.0-47.0); Hemoglobin 13.1 g/dl (12.0-16.0); Imm Gran Abs Auto 0.02 X10*3/uL (0.00-0.03); Imm Gran Pct Auto 0.3 % (0.0-0.4); Lymphocytes Absolute Auto 2.8 X10*3/uL (1.2-4.9); Mean Corpuscular Hemoglobin 29.6 pg (27.0-33.0); Mean Corpuscular Volume 89.8 fL (80.0-98.0); Mean Platelet Volume 9.5 fL (9.4-12.3); Monocytes Absolute Auto 0.3 X10*3/uL (0.1-1.2); Monocytes Percent Auto 4.4 % (2-11); Neutrophils Absolute Auto 4.3 x10*3/uL (2.0-8.3); Neutrophils Percent Auto 56.3 % (45-73); Platelet Count 414 X10*3/uL (160-400); Red Blood Count 4.42 X10*6/uL (4.20-5.50); Red Cell Distribution Width 12.7 % (11.0-16.0); White Blood Count 7.6 X10*3/uL (4.8-10.8)
[2023-01-01 18:19] LABS: C Reactive Protein 0.26 mg/dL (< or = 0.50)
[2023-01-01 18:28] LABS: Erythrocyte Sedimentation Rate 13 MM/HR (0-20)
[2023-01-01 18:40] LABS: Free T4 (Free Thyroxine) 0.89 ng/dL (0.71-1.85); Thyroid Stimulating Hormone 1.62 uIU/mL (0.32-4.0); Vitamin D 25-OH Total 46.2 ng/mL (>30)
[2023-01-01 18:51] LABS: Vitamin B12 238 pg/mL (200-900)
[2023-01-02 10:18] LABS: Thyroglobulin Antibodies <1 IU/mL (< or = 1); Thyroid Peroxidase Antibodies 1 IU/mL (<9)
[2023-01-03 00:04] LABS: Immunoglobulin E 136 kU/L (<OR=114)
[2023-01-04 12:10] LABS: Immunoglobulin A 139 mg/dL (47-310); Immunoglobulin M 213 mg/dL (50-300)
== END 2023-01-01 14:43 | disposition home or self-care (01) ==
LOC: HO.MANLDS 14:42
PROVIDERS: Visit Provider Physician Assistant
DX: E11.43 Type 2 diabetes mellitus with diabetic autonomic (poly)neuropathy (principal); K31.84 Gastroparesis; R23.8 Other skin changes; Z90.09 Acquired absence of other part of head and neck
CPT/HCPCS: 36415; 82306; 82607; 82746; 82784; 82785; 84439; 84443; 85025; 85652; 86140; 86160; 86376; 86800

== ENCOUNTER 2023-01-01 16:07 | Outpatient (REF) | payer OTHER, SELFPAY | END 2023-01-01 16:08 | disposition home or self-care (01) | LOC: HO.MANLNP 16:07 | PROVIDERS: Visit Provider Physician Assistant | DX: R23.8 Other skin changes (principal) | CPT/HCPCS: 87070; 87077; 87186; 87205 ==

== ENCOUNTER → 2023-03-08 08:12 | Outpatient (BNVA) | payer OTHER, SELFPAY | PROVIDERS: PCP Internal Medicine; Visit Provider Physician Assistant Medical | DX: S83.8X2A Sprain of other specified parts of left knee, initial encounter (principal); S60.212A Contusion of left wrist, initial encounter; S60.211A Contusion of right wrist, initial encounter; S80.02XA Contusion of left knee, initial encounter; S80.01XA Contusion of right knee, initial encounter; S39.012A Strain of muscle, fascia and tendon of lower back, initial encounter; Y00.XXXA Assault by blunt object, initial encounter; W18.09XA Striking against other object with subsequent fall, initial encounter | CPT/HCPCS: 99203 ==

== ENCOUNTER → 2023-03-19 14:54 | Outpatient (BNVA) | payer OTHER, SELFPAY | PROVIDERS: PCP Internal Medicine; Visit Provider Physician Assistant Medical | DX: S80.02XD Contusion of left knee, subsequent encounter (principal); W20.8XXD Other cause of strike by thrown, projected or falling object, subsequent encounter; M79.662 Pain in left lower leg | CPT/HCPCS: 99213 ==

== ENCOUNTER 2023-03-28 08:41 | Outpatient (REF) | payer OTHER, SELFPAY ==
--- NOTE | ~2023-03-28 | XR_ITS ---
EXAMINATION: XR KNEE, LEFT CLINICAL INFORMATION: Pain. COMPARISON: Radiographs dated 03/08/2023. TECHNIQUE: Frontal, lateral and axial views of the left knee are submitted. FINDINGS: Bony alignment and mineralization are normal. The lateral, medial and patellofemoral joint space compartments are well-maintained. There are small peripheral osteophytes at the upper and lower articular margins of the patella. An enthesophyte arises from the upper pole of the patella at the quadriceps tendon insertion. No fracture, dislocation joint effusion is seen. There is no foreign body. XR/XR knee LT 3V IMPRESSION: 1. Mild osteoarthritic change is seen of the left patellofemoral compartment. 2. No left knee fracture, dislocation or joint effusion is seen.
== END 2023-03-28 08:42 | disposition home or self-care (01) ==
LOC: HO.HOSX 08:41
PROVIDERS: Visit Provider Orthopaedic Surgery
DX: M25.562 Pain in left knee (principal)
CPT/HCPCS: 73562; 99202

== ENCOUNTER 2023-03-28 14:53 | Outpatient (AMB) | payer OTHER, SELFPAY ==
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
== END 2023-03-28 15:26 | disposition home or self-care (01) ==
PROVIDERS: PCP Internal Medicine; Visit Provider Orthopaedic Surgery
DX: M25.562 Pain in left knee (principal)
CPT/HCPCS: 99202

== ENCOUNTER 2023-04-03 12:54 | Outpatient (REF) | payer OTHER, SELFPAY ==
--- NOTE | ~2023-04-03 | MM_ITS ---
EXAMINATION: MM DIAGNOSTIC DIGITAL BREAST TOMOSYNTHESIS, BILATERAL CLINICAL INFORMATION: Follow-up right breast focal asymmetry seen since 11/19/2020 from [facility]. COMPARISON: Mammography: 09/12/2022, 03/02/2022, 11/19/2020 ([facility]) TECHNIQUE: Digital breast tomosynthesis is performed in both the craniocaudal and mediolateral oblique views along with computer-aided detection (CAD). Synthesized 2D images are generated from the tomosynthesis. FINDINGS: There are scattered areas of fibroglandular density (ACR BI-RADS breast composition Category b). There is a stable 7 mm rounded asymmetry in the approximately 9:00 position right breast, middle one third, which has been unchanged since 2020, and given two-year stability can now be characterized as benign. No further follow-up recommended. Otherwise, there are no suspicious masses, suspicious grouped calcifications, or areas of architectural distortion in either breast. The parenchymal pattern is stable from prior exams. MM/MM tomosynthesis diagnostic BI IMPRESSION: No findings suspicious for malignancy in either breast. Unchanged focal asymmetry right breast, stable since 2020, and now benign etiology has been established. No further follow-up recommended. Recommend the patient resume annual screening routine mammography. ASSESSMENT: BI-RADS BI-RADS 2 - Benign Findings RECOMMENDATION: 1 year F/U Results were provided to the patient at time of visit by the technologist. This patient's information was entered into a reminder system with a target due date for their next mammogram.
== END 2023-04-03 12:55 | disposition home or self-care (01) ==
LOC: HO.MAMMO 12:54
PROVIDERS: PCP Internal Medicine; Visit Provider Internal Medicine
DX: R92.311 Mammographic fatty tissue density, right breast (principal)
CPT/HCPCS: 77062; 77066

== ENCOUNTER → 2023-04-03 13:00 | Outpatient (BNV) | payer OTHER, SELFPAY | PROVIDERS: PCP Internal Medicine; Visit Provider Radiology Diagnostic Radiology | DX: D24.1 Benign neoplasm of right breast (principal); R92.323 Mammographic fibroglandular density, bilateral breasts | CPT/HCPCS: 77062; 77066 ==

== ENCOUNTER → 2023-04-30 09:59 | Outpatient (BNVA) | payer OTHER, SELFPAY | PROVIDERS: PCP Internal Medicine; Visit Provider Physician Assistant Medical | DX: S80.02XD Contusion of left knee, subsequent encounter (principal); Y00.XXXD Assault by blunt object, subsequent encounter; M54.10 Radiculopathy, site unspecified | CPT/HCPCS: 99213 ==

== ENCOUNTER 2023-05-16 17:00 | Outpatient (RCR) | payer OTHER, SELFPAY ==
--- NOTE | 2023-03-19 18:02 | MHC.PT.EP ---
[facility] [place] Office [place] Office [place] Office [address] Julia Sosa [address] [phone] F: [phone] F: [phone] F: [phone] F: [phone] Physical Therapy Plan of Care Date of Evaluation: 03/19/23 Date of Surgery: N/A Diagnosis: L knee contusion (RL) Assessment: pt is a 33 y/o male presenting to physical therapy w/ referring diagnosis of left knee contusion. Educated pt on desensitization techniques as I am concerned if she continues to avoid pressure to L knee she may develop a CRPS. Impairments include pain, decreased range of motion, decreased strength, impaired functional mobility, impaired postural awareness, and altered ambulation mechanics. pt is a good candidate for skilled PT due to age, potential remediation of impairments, typical disease/condition progression and prognosis, comorbidities, and motivation. pt would benefit from skilled PT intervention to provide a tailored strengthening and stretching exercise program, functional training, gait training, postural re-training, neuromuscular re-education, modalities as needed for pain, equipment safety demonstration. Frequency and Duration: The patient will be seen 2x/wk for 4 wks Short Term Goals: pt will be I w/ HEP to promote self-management of condition. pt will improve L knee extension to 5/5 to promote ease in ascending stairs/curbs. Breastfeeding Peer Counselor Goals: pt will report a statistically significant improvement in self-reported outcome measure, LEFI, to promote return to PLOF. pt will report <2/10 L knee pain w/ standing for >30 minutes to promote full return to work. Treatment Plan: Modalities to reduce pain, spasms and effusion. Manual therapy to restore motion and function. Therapeutic exercise to improve strength and flexibility. Neuromuscular re-education for posture and balance. Therapeutic activities to return to functional activities of daily living. Electronically signed by: Libra Pacheco PT, DPT Please sign and return to therapist. Thank you for your referral.
--- NOTE | 2023-06-12 11:43 | MHC.PT.DC ---
[facility] [place] Office [place] Office [place] Office [address] Julia Sosa 140 [facility] [phone] F: [phone] F: [phone] F: [phone] F: [phone] Physical Therapy Discharge Report Diagnosis: L knee contusion (RL) Date of Surgery: N/A Date of Evaluation: 03/19/23 Date of Discharge: 06/12/23 Treatments to Date: 8 Cancellations to Date: 7 No Shows to Date: 0 Discharge Status: Improved Function Independent with HEP Discharge Summary: The patient overall presents with vague symptoms but does admit to improvements overall in her status. Unfortunately, with her type of work she does tend to injure herself often. She was educated on general body mechanics and postural awareness to avoid placing too much stress on her joints. She has a multitude of home exercises to work on at this time. She cancelled her last appointment and has not rescheduled. She has not been seen in approximately one month. She is discharged from this physical therapy plan of care. Electronically signed by: Libra Pacheco PT, DPT Please sign and return to therapist. Thank you for your referral.
== END 2023-06-12 11:43 | disposition home or self-care (01) ==
LOC: HO.PT 17:00
PROVIDERS: PCP Internal Medicine; Visit Provider Physician Assistant Medical
DX: S80.02XD Contusion of left knee, subsequent encounter (principal)
CPT/HCPCS: 97110; 97112; 97162; 97164

== ENCOUNTER → 2023-06-06 15:01 | Outpatient (BNVA) | payer OTHER, SELFPAY | PROVIDERS: PCP Internal Medicine; Visit Provider Physician Assistant Medical | DX: S80.02XD Contusion of left knee, subsequent encounter (principal); W18.09XD Striking against other object with subsequent fall, subsequent encounter | CPT/HCPCS: 99213 ==

== ENCOUNTER 2023-06-19 18:10 | Outpatient (REF) | payer OTHER, SELFPAY ==
--- NOTE | ~2023-06-19 | MR_ITS ---
EXAMINATION: MR KNEE WITHOUT CONTRAST, LEFT CLINICAL INFORMATION: Left knee pain COMPARISON: Radiographs 03/28/2023 TECHNIQUE: MRI of the knee without contrast was performed using routine sequences on a high-field scanner. FINDINGS: MENISCI: Medial Meniscus: Intact Lateral Meniscus: Intact LIGAMENTS: Cruciate: Intact Collateral: Intact EXTENSOR MECHANISM: Intact ARTICULAR CARTILAGE/BONE: Patellofemoral Compartment: Minimal cartilage thinning at the inferior aspect of the patella with small marginal osteophytes. Medial Compartment: Normal Lateral Compartment: Normal JOINT FLUID AND BURSAE: No joint effusion. MR/MR knee LT wo con IMPRESSION: 1. Mild patellofemoral compartment osteoarthritis. 2. No meniscal tear.
== END 2023-06-19 18:11 | disposition home or self-care (01) ==
LOC: HO.MRI 18:10
PROVIDERS: PCP Internal Medicine; Visit Provider Internal Medicine
DX: M25.562 Pain in left knee (principal)
CPT/HCPCS: 73721

== ENCOUNTER → 2023-06-27 15:44 | Outpatient (BNVA) | payer OTHER, SELFPAY | PROVIDERS: PCP Internal Medicine; Visit Provider Physician Assistant Medical | DX: M17.12 Unilateral primary osteoarthritis, left knee (principal) | CPT/HCPCS: 99213 ==

== ENCOUNTER 2023-07-10 14:21 | Outpatient (AMB) | payer OTHER, SELFPAY ==
[2023-07-10 14:42] VITALS: BMI 33.5
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
== END 2023-07-10 15:05 | disposition home or self-care (01) ==
PROVIDERS: PCP Internal Medicine; Visit Provider Orthopaedic Surgery
DX: M25.562 Pain in left knee (principal)
CPT/HCPCS: 99213

== ENCOUNTER → 2023-07-10 14:21 | Outpatient (BNVA) | payer OTHER, SELFPAY | PROVIDERS: PCP Internal Medicine; Visit Provider Orthopaedic Surgery ==

== ENCOUNTER 2023-07-30 13:10 | Outpatient (AMB) | payer OTHER, SELFPAY ==
--- NOTE | 2023-07-30 13:16 | A.OFFVIS_ITS ---
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: No Information Interpreted: non-clinical & clinical Certified Nurse Midwife: Certified Nurse Midwife Present (Peggy) Allergies influenza virus vaccine, specific [FLU VACCINE] Allergy (Mild, Verified 07/30/23 13:21) UNKNOWN doxycycline [DOXYCYCLINE] Allergy (Unknown, Verified 07/30/23 13:21) SWELLING vancomycin [VANCOMYCIN] Allergy (Unknown, Verified 07/30/23 13:21) ANAPHYLAXIS metoclopramide [From Reglan] Allergy (Verified 07/30/23 13:21) Unknown shellfish Allergy (Mild, Uncoded 07/30/23 13:22) Swelling Is last menstrual period known: Yes Last menstrual period: 07/30/23 Post menopausal: No HPI HPI Comments History of Present Illness Details Presenting for annual exam. Complaining of irregular menstrual cycle associated with history of blood clots and hair growth Last Pap/HPV was? Years ago Last Mammogram was in 04/05, BI-RADS 2 [facility] Medical History Cholecystectomy planned Pre-diabetes Lyme disease Osteoarthritis PCOS (polycystic ovarian syndrome) Gastroparesis Surgical History History of cholecystectomy H/O partial thyroidectomy Family History Maternal Aunt Breast cancer Social History Alcohol intake: never Patient Tobacco Use Status: Never used Tobacco Current occupational status: employed Female Reproductive History Menstrual Age of Menarche: 15 Duration of menses: other Date of last menstrual period: 07/30/23 control method: none Total pregnancies: 0 History of abnormal pap smear: Yes Date of Mammogram: 04/03/23 Review of Systems Const All systems reviewed & are unremarkable except as noted in HPI and below Card Reports as per HPI Resp Reports as per HPI GI Reports as per HPI and Reports no additional complaints Reports as per HPI Physical Exam Vital Signs: Last Vital Signs BP 142/108 H 07/30/23 13:17 BMI result Body Mass Index 36.6 Const General: cooperative, healthy appearing and comfortable Chest Chest palpation & inspection: normal inspection of the chest and normal palpation of entire chest wall Breast/axilla inspection: normal inspection of the breasts and normal inspection of the axillae Breast/axilla palpation: normal palpation of the breasts, normal palpation of the axillae and no axillary lymphadenopathy Resp Effort & Inspection: normal respiratory effort Auscultation: clear to auscultation bilaterally Percussion: percussion normal Cardio Palpation: normal PMI Rate: regular rate Rhythm: regular rhythm Heart sounds: no murmurs and no rubs Peripheral pulses: Peripheral pulses 2+ throughout GI Inspection: Yes normal to inspection Palpation (GI): Soft to palpation, nontender, no guarding, not rigid and No hepatosplenomegaly present Percussion: Yes normal to percussion Auscultation: normal bowel sounds Rectal Exam - Female: deferred General: Yes bladder normal to palpation External Female Exam: No lesion Speculum Exam - Vagina: normal appearance of the vagina, normal palpation, normal vaginal discharge and not erythematous Speculum Exam - Cervix: normal appearance of the cervix and normal palpation Bimanual exam- vagina & uterus: normal bimanual exam, normal palpation, uterine size normal, bladder normal to palpation, consistency normal and normal palpation Bimanual Exam- Adnexa, other: normal adnexae, no masses and no tenderness Assessment & Plan Assessment & Plan (1) Well woman exam: Code(s): Z01.419 - Encounter for gynecological examination (general) (routine) without abnormal findings Plan: Cotesting done. Instructions given the patient to schedule her next screening Mammogram in 04/06. Counseled the patient about the recommended dietary allowance of 1000 mg of Calcium & 600 IU of vitamin D. The patient was instructed to perform monthly self-breast exams and to schedule an annual exam in a year; All questions answered and the patient verbalized understanding. Instructed the patient to schedule annual exam in a year (2) Abnormal uterine bleeding (AUB): Comment: With hirsutism Code(s): N93.9 - Abnormal uterine and vaginal bleeding, unspecified Plan: Co testing done, GC and chlamydia taken CBC, prolactin, TSH, HCG, 17 hydroxyprogesterone, total and free testosterone and pelvic ultrasound ordered. Discussed with the patient the different causes of abnormal bleeding including thyroid disorders, uterine and ovarian pathology, endometrial hyperplasia, carcinoma and other potential causes. Discussed with the patient the work up including CBC (to r/o anemia), TSH, prolactin, androgen levels, pelvic Ultrasound, endometrial biopsy to r/o endometrial pathology. All questions answered and the patient verbalized understanding. Instructed the patient to schedule an appointment for ultrasound follow-up and possible endometrial biopsy in 2 weeks. Orders: Orders 2 Complete Blood Count no Diff Today N93.9 - Abnormal uterine and vaginal bleeding, unspecified US pelvic and transvaginal Today N93.9 - Abnormal uterine and vaginal bleeding, unspecified Prolactin Today N93.9 - Abnormal uterine and vaginal bleeding, unspecified TSH reflex Free T4 Today N93.9 - Abnormal uterine and vaginal bleeding, unspecified Testosterone, Free/Total Today L68.0 - Hirsutism 17 Hydroxyprogesterone Today L68.0 - Hirsutism Coding Level of Care Code New Pt Prev Care 40-64y(81995) Diagnoses Well woman exam Z01.419 Abnormal uterine bleeding (AUB) N93.9
[2023-07-30 13:17] VITALS: BP 142/108; BMI 36.6
== END 2023-07-31 08:38 | disposition home or self-care (01) ==
LOC: HO.HWS 13:10
PROVIDERS: PCP Internal Medicine; Visit Provider Obstetrics & Gynecology
DX: Z01.419 Encounter for gynecological examination (general) (routine) without abnormal findings (principal); N93.9 Abnormal uterine and vaginal bleeding, unspecified
CPT/HCPCS: 99385

== ENCOUNTER 2023-07-30 13:10 | Outpatient (REF) | payer OTHER, SELFPAY ==
[2023-07-30 18:38] LABS: CT PCR NOT DETECTED (Not Detect.); NG PCR NOT DETECTED (Not Detect.)
[2023-08-04 04:53] LABS: HPV mRNA E6/E7 rflx Not Detected (Not Detected)
== END 2023-07-30 13:11 | disposition home or self-care (01) ==
LOC: HO.LNP 13:10
PROVIDERS: PCP Internal Medicine; Visit Provider Obstetrics & Gynecology
DX: Z01.419 Encounter for gynecological examination (general) (routine) without abnormal findings (principal); Z11.51 Encounter for screening for human papillomavirus (HPV); Z20.2 Contact with and (suspected) exposure to infections with a predominantly sexual mode of transmission; N93.9 Abnormal uterine and vaginal bleeding, unspecified
CPT/HCPCS: 0353U; 87624; 88142

== ENCOUNTER 2023-10-23 15:47 | Outpatient (REF) | payer OTHER, SELFPAY ==
--- NOTE | ~2023-10-23 | US_ITS ---
EXAMINATION: US PELVIS CLINICAL INFORMATION: Abnormal bleeding, last menstrual period 10/20/2023. COMPARISON: CT abdomen and pelvis of 10/20/2021. TECHNIQUE: Ultrasound of the pelvis is performed using both transabdominal and transvaginal transducers along with Doppler. Transvaginal imaging is performed due to inadequate visualization transabdominally. FINDINGS: Uterus is anteverted and measures 7.3 x 2.2 x 3.9 cm. No discrete fibroid appreciated. Limited visualization due to bowel gas and body habitus. Hairspring I Inspector attempted to perform transvaginal ultrasound images, but patient unable to tolerate transvaginal exam and unable to tolerate probe insertion. Endometrial thickness is 2 mm. Right ovary measures 2.4 x 1.5 x 1.7 cm, volume 3.2 mL. Left ovary measures 2.2 x 1.7 x 2.4 cm, volume 4.7 mL. Limited visualization of bilateral ovaries due to bowel gas. Bilateral ovaries are grossly unremarkable. No significant free fluid. US/US pelvic and transvaginal IMPRESSION: 1. No discrete fibroids. 2. Endometrial thickness is 2 mm. 3. Bilateral ovaries are grossly unremarkable on limited images. 4. Limited visualization due to bowel gas and body habitus. Hairspring I Inspector attempted to perform transvaginal ultrasound images, but patient unable to tolerate transvaginal exam and unable to tolerate probe insertion.
== END 2023-10-23 15:48 | disposition home or self-care (01) ==
LOC: HO.US 15:47
PROVIDERS: PCP Internal Medicine; Visit Provider Obstetrics & Gynecology
DX: N93.9 Abnormal uterine and vaginal bleeding, unspecified (principal)
CPT/HCPCS: 76830; 76856

== ENCOUNTER 2023-12-11 22:07 | Emergency (ER) | payer OTHER, SELFPAY ==
--- NOTE | ~2023-12-11 | CT_ITS ---
EXAMINATION: CT ABDOMEN AND PELVIS WITH CONTRAST CLINICAL INFORMATION: Abdominal pain COMPARISON: 10/20/2021 TECHNIQUE: Multidetector volumetric images were obtained from the superior aspect of the liver through the pubic symphysis following administration 85 mL of Omnipaque 350 intravenous contrast. Sagittal and coronal reformatted images were obtained on the technologist's workstation. Oral contrast: No This CT examination was performed using dose optimization techniques as appropriate, variously including the following: *Automated exposure control *Adjustment of mA and/or kV according to patient size (this includes techniques or standardized protocols for targeted exams where dose is matched to indication/reason for exam; i.e. extremities or head) *Use of iterative reconstruction technique DLP: 652 mGy-cm FINDINGS: LUNG BASES: The visualized lung bases are unremarkable. LIVER, GALLBLADDER, AND BILIARY TREE: The liver is normal in size, shape, and attenuation. No focal hepatic lesion or biliary ductal dilatation is present. Status post cholecystectomy. PANCREAS: Unremarkable. SPLEEN: Unremarkable. ADRENAL GLANDS: Unremarkable. KIDNEYS AND URETERS: Bilateral nephrograms are symmetric. No hydronephrosis or obstructing calculus identified. BLADDER: Unremarkable. GASTROINTESTINAL TRACT: No evidence of bowel obstruction or significant wall thickening. Appendix appears collapsed. No free air is seen. ABDOMINAL WALL: No significant hernia is appreciated. LYMPH NODES: Normal. VASCULAR: Unremarkable. PELVIC VISCERA: Unremarkable for patient age. Trace pelvic free fluid noted. OSSEOUS STRUCTURES: Unremarkable. CT/CT abdomen pelvis w IV con IMPRESSION: Trace nonspecific pelvic free fluid, which may be physiologic. Otherwise no additional acute findings identified in the abdomen/pelvis.
[2023-12-11 22:13] VITALS: BP 163/119; PULSE 117; RESP 18; TEMP 36.7; O2SAT 97; BMI 38.5
[2023-12-11 23:00] LABS: Basophils Absolute Auto 0.1 X10*3/uL (0.0-0.2); Basophils Percent Auto 0.5 % (0-2); Eosinophils Absolute Auto 0.1 X10*3/uL (0.0-0.4); Hematocrit 39.7 % (37.0-47.0); Hemoglobin 14.1 g/dl (12.0-16.0); Imm Gran Abs Auto 0.03 X10*3/uL (0.00-0.03); Imm Gran Pct Auto 0.3 % (0.0-0.4); Lymphocytes Absolute Auto 2.4 X10*3/uL (1.2-4.9); Lymphocytes Percent Auto 22.1 % (20-40); MANUAL DIFF FLAG NO; Mean Corpuscular HGB Conc 35.5 g/dl (31.0-35.0); Mean Corpuscular Hemoglobin 30.1 pg (27.0-33.0); Mean Corpuscular Volume 84.6 fL (80.0-98.0); Mean Platelet Volume 9.6 fL (9.4-12.3); Monocytes Absolute Auto 0.5 X10*3/uL (0.1-1.2); Monocytes Percent Auto 4.2 % (2-11); Neutrophils Absolute Auto 7.9 x10*3/uL (2.0-8.3); Neutrophils Percent Auto 71.9 % (45-73); Platelet Count 404 X10*3/uL (160-400); Red Blood Count 4.69 X10*6/uL (4.20-5.50); Red Cell Distribution Width 12.7 % (11.0-16.0)
[2023-12-11 23:16] LABS: Alanine Aminotransferase 26 U/L (0-31); Albumin Level 4.4 g/dL (3.5-5.0); Alkaline Phosphatase 62 U/L (39-117); Anion Gap 16 (12-20); Aspartate Amino Transferase 17 U/L (5-31); Bilirubin Direct 0.1 mg/dL (0.0-0.5); Bilirubin Total 0.3 mg/dL (0.0-1.0); Blood Urea Nitrogen 13 mg/dL (9-16); Calcium 9.4 mg/dL (8.4-10.2); Carbon Dioxide 17 mmol/L (22-29); Chloride 110 mmol/L (96-108); Estimated Glomerular Filt Rate > 60; Glucose Random 161 mg/dL (60-115); Lipase 52 U/L (8-78); Potassium 3.8 mmol/L (3.3-5.1); Sodium 139 mmol/L (135-145); Total Protein 7.9 g/dL (6.5-8.0)
--- NOTE | 2023-12-11 23:44 | ED_ITS ---
HPI - Abdominal Pain General Chief Complaint: Abdominal Pain Stated Complaint: Abdominal pain Time Seen by Provider: 12/11/23 23:13 History of Present Illness HPI narrative: Patient is a 33-year-old female presents today with having abdominal pain. The abdominal pain is diffuse over the entire abdomen. Similar to previous bouts of gastroparesis. Usually resolved with Zofran and pain medication. Patient denies any fever chills. Positive nausea vomiting. No diarrhea. No change in bowel movement. Does not think she is . Denies any chest pain. No diaphoresis. No coughing or congestion or upper respiratory symptoms. Status post cholecystectomy. Appendix is still in place. Related Data Home Medications ?Medication ?Instructions ?Recorded ?Confirmed bupropion HCl 150 mg tablet,12 hr 150 mg PO BID 03/06/21 03/29/23 sustained-release levothyroxine 25 mcg capsule 12.5 mcg PO DAILY 07/30/23 phentermine 37.5 mg capsule 37.5 mg PO DAILY 07/30/23 topiramate 100 mg tablet (Topamax) 100 mg PO DAILY 07/30/23 Previous Rx's ?Medication ?Instructions ?Recorded ondansetron 4 mg disintegrating 4 mg PO TID PRN nausea and 12/12/23 tablet vomiting 5 days #10 tabs Allergies Allergy/AdvReac Type Severity Reaction Status Date / Time influenza virus vaccine, Allergy Mild UNKNOWN Verified 12/11/23 22:15 specific [FLU VACCINE] doxycycline [DOXYCYCLINE] Allergy Unknown SWELLING Verified 12/11/23 22:15 vancomycin [VANCOMYCIN] Allergy Unknown ANAPHYLAXIS Verified 12/11/23 22:15 metoclopramide [From Reglan] Allergy Unknown Verified 12/11/23 22:15 shellfish Allergy Mild Swelling Uncoded 07/30/23 13:22 Review of Systems Review of Systems Positive abdominal pain Yes all other systems are reviewed and are negative PMFSH Past Medical History Attestation statement: The following information was validated with the patient. Medical History Cholecystectomy planned Pre-diabetes Lyme disease Osteoarthritis PCOS (polycystic ovarian syndrome) Gastroparesis Surgical History History of cholecystectomy H/O partial thyroidectomy Family History Family History Maternal Aunt Breast cancer Social History Social History Alcohol intake: never Patient Tobacco Use Status: Never used Tobacco Advance Directives: No Advance Directives Information Provided: Yes Current occupational status: employed Physical Exam ED Vital Signs: Vital Signs - 24 hr 12/11/23 22:13 12/12/23 00:00 12/12/23 02:00 Temperature 98.0 F 98.1 F 98.7 F Pulse Rate 117 H 112 H 101 H Respiratory Rate 18 18 16 Blood Pressure 163/119 H 170/118 H 125/88 Pulse Oximetry 97 96 94 Oxygen Delivery Method Room Air Room Air Room Air BMI result Body Mass Index 38.5 Appearance: Alert. Oriented X3. No acute distress. Eyes: Pupils equal, round and reactive to light. ENT: Pharynx normal. Neck: Normal inspection. Neck supple. No lymph nodes noted. No crepitus CVS: Normal heart rate and rhythm. Pulses normal. Normal S1 and S2 Respiratory: No respiratory distress. Breath sounds normal. No Wheezing. No rales Abdomen: Soft and nontender. No rigidity. No distention. good BS x4 Skin: Skin warm and dry. Normal skin color. Normal skin turgor. Extremities: No lower extremity edema. Neurovascular intact to all extremities. No Lacerations. No Rash Neuro: Oriented X 3. No motor deficit. No sensory deficit. Moving all extermities. No slurred speech Medical Decision Making Medical Decision Making [facility] Narrative: Patient is a 33-year-old female with a history of gastroparesis. Presents today with abdominal pain nausea vomiting unable to tolerate fluids. CT scan of the abdomen pelvis was done. It showed no acute evidence of obstruction abscess perforation. Patient's white count is 11. His electrolytes showed a low CO2 of 17. Glucose was 160. Given IV fluids in the emergency department given pain medication nausea medication. Symptomatically feel much improved now is able to tolerate fluids urine showed no evidence of infection test was negative no evidence for -related issue will discharge patient home Zofran for nausea in stable condition Differential Diagnosis Differential Diagnoses: The differential diagnosis associated with the presentation includes Gastroparesis, obstruction, abscess, perforation Admission/Observation Consideration of admission/observation: Escalation of care including admission/observation considered Lab Data [facility] Lab Attestation statement: I reviewed the patient's lab results. 12/11/23 22:52 12/11/23 22:52 Labs: Lab Results 12/11/23 12/12/23 Range/Units 22:52 02:07 WBC 11.0 H (4.8-10.8) X10*3/uL RBC 4.69 (4.20-5.50) X10*6/uL Hgb 14.1 (12.0-16.0) g/dl Hct 39.7 (37.0-47.0) % MCV 84.6 (80.0-98.0) fL MCH 30.1 (27.0-33.0) pg MCHC 35.5 H (31.0-35.0) g/dl RDW 12.7 (11.0-16.0) % Plt Count 404 H (160-400) X10*3/uL MPV 9.6 (9.4-12.3) fL Immature Gran % (Auto) 0.3 (0.0-0.4) % Neut % (Auto) 71.9 (45-73) % Lymph % (Auto) 22.1 (20-40) % [place] % (Auto) 4.2 (2-11) % Eos % (Auto) 1.0 (0-4) % Baso % (Auto) 0.5 (0-2) % Lymph # (Auto) 2.4 (1.2-4.9) X10*3/uL [place] # (Auto) 0.5 (0.1-1.2) X10*3/uL Eos # (Auto) 0.1 (0.0-0.4) X10*3/uL Baso # (Auto) 0.1 (0.0-0.2) X10*3/uL Abs Immat Gran (auto) 0.03 (0.00-0.03) X10*3/uL Absolute Neuts (auto) 7.9 (2.0-8.3) x10*3/uL Absolute Nucleated RBC 0.000 (0.0-0.012) X10*3/uL Nucleated RBC % (auto) 0.0 (0.0-0.2) /100WBC Sodium 139 (135-145) mmol/L Potassium 3.8 (3.3-5.1) mmol/L Chloride 110 H (96-108) mmol/L Carbon Dioxide 17 L (22-29) mmol/L Anion Gap 16 (12-20) BUN 13 (9-16) mg/dL Creatinine 0.95 (0.5-1.4) mg/dL Estim Creat Clear Calc 73.0 Estimated GFR > 60 Random Glucose 161 H (60-115) mg/dL Calcium 9.4 (8.4-10.2) mg/dL Total Bilirubin 0.3 (0.0-1.0) mg/dL Direct Bilirubin 0.1 (0.0-0.5) mg/dL AST 17 (5-31) U/L ALT 26 (0-31) U/L Alkaline Phosphatase 62 (39-117) U/L Total Protein 7.9 (6.5-8.0) g/dL Albumin 4.4 (3.5-5.0) g/dL Lipase 52 (8-78) U/L Beta HCG, Quant < 2 mIU/mL Urine Color Yellow Urine Appearance Clear Urine pH 7.5 (5.0-9.0) Ur Specific [place] >= 1.030 H (1.005-1.025) Urine Protein Negative (Neg-Trace) mg/dL Urine Glucose (UA) Negative (Negative) mg/dL Urine Ketones Trace (Negative) mg/dL Urine Blood Negative (Negative) Urine Nitrite Negative (Negative) Ur Leukocyte Esterase Trace H (Negative) Urine RBC 0-2 (0-2) /HPF Urine WBC 11-20 H (0-5) /HPF Ur Squamous Epith Cells 6-10 (0-2) /HPF Urine Bacteria Trace (None Seen) Hyaline Casts 0-2 (0-2) /LPF Urine Test NEGATIVE (NEGATIVE) Independent Interpretation I performed an independent interpretation of an: CT Scan (CT scan showed no obstruction abscess perforation) Radiology Impression Discussion of test interpretation with radiology: I have reviewed the radiologist's reading. Medications Administered Discontinued Medications Generic Name Dose Route Start Last Admin Trade Name Freq PRN Reason Stop Dose Admin Sodium Chloride 1,000 mls @ 999 mls/hr 12/11/23 23:45 12/12/23 00:07 Ns IV 12/12/23 00:45 999 mls/hr .Q1H1M SRI Administration Iohexol 85 ml 12/12/23 01:21 12/12/23 01:22 Iohexol 350 Mg/Ml 100 Ml Infus..Btl IV 12/12/23 01:22 85 ml ONCE ONE Administration Morphine Sulfate 4 mg 12/11/23 23:43 12/12/23 00:09 Morphine Sulfate 4 Mg/Ml Cartridge IVPUSH 12/11/23 23:44 4 mg ONCE ONE Administration Protocol Morphine Sulfate 4 mg 12/12/23 01:23 12/12/23 01:51 Morphine Sulfate 4 Mg/Ml Cartridge IVPUSH 12/12/23 01:24 4 mg ONCE ONE Administration Protocol Ondansetron HCl 4 mg 12/11/23 23:43 12/12/23 00:09 Ondansetron Hcl 4 Mg/2 Ml Vial IVPUSH 12/11/23 23:44 4 mg ONCE ONE Administration Discharge Plan Discharge Clinical Impression: Gastroparesis Patient Disposition: Home, Self-Care Instructions: Gastroparesis (ED) Prescriptions: New ondansetron 4 mg tablet,disintegrating 4 mg PO TID PRN (Reason: nausea and vomiting) 5 Days Qty: 10 0RF No Action bupropion HCl 150 mg tablet sustained-release 12 hr 150 mg PO BID topiramate [Topamax] 100 mg tablet 100 mg PO DAILY levothyroxine 25 mcg capsule 12.5 mcg PO DAILY phentermine 37.5 mg capsule 37.5 mg PO DAILY Rx Instructions: must administer 30 minutes before or 1-2 hours after breakfast Referrals: Juan Chou MD [Primary Care Provider] - 12/14/23 Print Language: Uzbek
[2023-12-12] VITALS: BP 170/118; PULSE 112; RESP 18; TEMP 36.7; O2SAT 96
[2023-12-12 00:03] LABS: HCG Quantitative < 2 mIU/mL
[2023-12-12] MEDS: 0.9 % Sodium Chloride 1,000 ML 999 ML IV (00:07)
[2023-12-12] MEDS: Morphine Sulfate 4 MG/ML CARTRIDGE IVPUSH ×2 (00:09→01:51)
[2023-12-12] MEDS: ondansetron HCL 4 MG/2 ML VIAL IVPUSH (00:09)
[2023-12-12] MEDS: iohexoL 350 MG/ML 100 ML INFUS..BTL 85 ML IV (01:22)
[2023-12-12 02:00] VITALS: BP 125/88; PULSE 101; RESP 16; TEMP 37.1; O2SAT 94
[2023-12-12 02:15] LABS: Appearance Urine Clear; Color Urine Yellow; Glucose Urine UA Negative (Negative); Leukocyte Esterase Urine Trace (Negative); Nitrite Urine Negative (Negative); PH 7.5 (5.0-9.0); Specific Gravity - Urine >= 1.030 (1.005-1.025); UMIC TRIGGER UACC YES; Urine Blood Negative (Negative); Urine Ketones Trace mg/dL (Negative); Urine Protein Negative (Neg-Trace)
[2023-12-12 02:18] LABS: UPreg QC Valid YES; Urine Pregnancy NEGATIVE (NEGATIVE)
[2023-12-12 02:20] LABS: Bacteria Urine Trace (None Seen); Hyaline Casts Urine 0-2 /LPF (0-2); RBC Urine 0-2 /HPF (0-2); UACC Culture Trigger YES
[2023-12-12 04:00] VITALS: BP 133/82; PULSE 100; RESP 16; TEMP 37.1; O2SAT 96
[2023-12-12 04:36] VITALS: BP 133/82; PULSE 100; RESP 16; TEMP 37.1; O2SAT 96
== END 2023-12-12 04:37 | disposition home or self-care (01) ==
PROVIDERS: Emergency Provider Emergency Medicine Emergency Medical Services; PCP Internal Medicine
DX: K31.84 Gastroparesis (principal); R11.2 Nausea with vomiting, unspecified; R10.2 Pelvic and perineal pain; Z79.899 Other long term (current) drug therapy
CPT/HCPCS: 36415; 74177; 80048; 80076; 81001; 81025; 83690; 84702; 85025; 87086; 87147; 96361; 96374; 96375; 96376; 99284; J2270; J2405; Q9967

== ENCOUNTER 2024-03-02 18:21 | Emergency (ER) | payer OTHER, SELFPAY ==
--- NOTE | ~2024-03-02 | XR_ITS ---
EXAMINATION: LUMBAR SPINE, LEFT HAND AND WRIST, LEFT KNEE, LEFT ANKLE CLINICAL INFORMATION: Fall with pain COMPARISON: CT abdomen pelvis 12/12/2023 TECHNIQUE: 3 views lumbar spine, 4 views left hand and wrist, 4 views left knee, 3 views left ankle FINDINGS: Lumbar spine, there is mildly exaggerated lordosis. No significant degenerative changes are seen. No fractures or bony destructive lesions are identified. Left hand and wrist: No significant bone, joint or soft tissue abnormality seen. Left knee: No fractures, dislocations or chondrocalcinosis. Joint spaces are well preserved. There is a small osteophyte arising from the inferior surface of the patella. Enthesopathy present at the insertion of the quadriceps tendon. Left ankle: There is mild bilateral soft tissue swelling. No fractures or subluxations seen. XR/XR knee LT 4V IMPRESSION: 1. No evidence of an acute osseous injury. 2. Mild degenerative changes in the left knee. 3. Mild soft tissue swelling left ankle. Electronically signed by: Oleg Jenkins MD 03/02/2024 07:19 PM EDT
--- NOTE | ~2024-03-02 | XR_ITS ---
EXAMINATION: LUMBAR SPINE, LEFT HAND AND WRIST, LEFT KNEE, LEFT ANKLE CLINICAL INFORMATION: Fall with pain COMPARISON: CT abdomen pelvis 12/12/2023 TECHNIQUE: 3 views lumbar spine, 4 views left hand and wrist, 4 views left knee, 3 views left ankle FINDINGS: Lumbar spine, there is mildly exaggerated lordosis. No significant degenerative changes are seen. No fractures or bony destructive lesions are identified. Left hand and wrist: No significant bone, joint or soft tissue abnormality seen. Left knee: No fractures, dislocations or chondrocalcinosis. Joint spaces are well preserved. There is a small osteophyte arising from the inferior surface of the patella. Enthesopathy present at the insertion of the quadriceps tendon. Left ankle: There is mild bilateral soft tissue swelling. No fractures or subluxations seen. XR/XR lumbar spine 2-3V IMPRESSION: 1. No evidence of an acute osseous injury. 2. Mild degenerative changes in the left knee. 3. Mild soft tissue swelling left ankle. Electronically signed by: Oleg Jenkins MD 03/02/2024 07:19 PM EDT
--- NOTE | ~2024-03-02 | XR_ITS ---
EXAMINATION: LUMBAR SPINE, LEFT HAND AND WRIST, LEFT KNEE, LEFT ANKLE CLINICAL INFORMATION: Fall with pain COMPARISON: CT abdomen pelvis 12/12/2023 TECHNIQUE: 3 views lumbar spine, 4 views left hand and wrist, 4 views left knee, 3 views left ankle FINDINGS: Lumbar spine, there is mildly exaggerated lordosis. No significant degenerative changes are seen. No fractures or bony destructive lesions are identified. Left hand and wrist: No significant bone, joint or soft tissue abnormality seen. Left knee: No fractures, dislocations or chondrocalcinosis. Joint spaces are well preserved. There is a small osteophyte arising from the inferior surface of the patella. Enthesopathy present at the insertion of the quadriceps tendon. Left ankle: There is mild bilateral soft tissue swelling. No fractures or subluxations seen. XR/XR ankle LT min 3V IMPRESSION: 1. No evidence of an acute osseous injury. 2. Mild degenerative changes in the left knee. 3. Mild soft tissue swelling left ankle. Electronically signed by: Oleg Jenkins MD 03/02/2024 07:19 PM EDT
--- NOTE | ~2024-03-02 | XR_ITS ---
EXAMINATION: LUMBAR SPINE, LEFT HAND AND WRIST, LEFT KNEE, LEFT ANKLE CLINICAL INFORMATION: Fall with pain COMPARISON: CT abdomen pelvis 12/12/2023 TECHNIQUE: 3 views lumbar spine, 4 views left hand and wrist, 4 views left knee, 3 views left ankle FINDINGS: Lumbar spine, there is mildly exaggerated lordosis. No significant degenerative changes are seen. No fractures or bony destructive lesions are identified. Left hand and wrist: No significant bone, joint or soft tissue abnormality seen. Left knee: No fractures, dislocations or chondrocalcinosis. Joint spaces are well preserved. There is a small osteophyte arising from the inferior surface of the patella. Enthesopathy present at the insertion of the quadriceps tendon. Left ankle: There is mild bilateral soft tissue swelling. No fractures or subluxations seen. XR/XR hand wrist LT IMPRESSION: 1. No evidence of an acute osseous injury. 2. Mild degenerative changes in the left knee. 3. Mild soft tissue swelling left ankle. Electronically signed by: Oleg Jenkins MD 03/02/2024 07:19 PM EDT
[2024-03-02 18:38] VITALS: BP 165/107; PULSE 97; RESP 16; TEMP 36.7; O2SAT 99; BMI 37.9
--- NOTE | 2024-03-02 18:45 | ED_ITS ---
HPI - Fall General Chief Complaint: Fall Stated Complaint: Fall/L knee pain Time Seen by Provider: 03/02/24 19:39 Source: patient Mode of arrival: ambulatory Limitations: no limitations History of Present Illness ED Provider: Alivia Guevara PA-C HPI Narrative: 34 farida jo with pmh of chornic degenerative knee disease with recurrent knee giving out and chronic back pain nerve impingment presents to ED for left knee pain, left hand wrist pain, and left ankle pain. Patient states she was going down 2 stairs and when she planted her left foot her left knee gave out and her left ankle rolled which caused her to fall onto outstretched left hand. Patient denies loss of consciousness. Patient denies any chest pain, shortness of breath, abdominal pain, headache, dizziness, nausea, vomiting. Patient denies any chest pain, abdominal pain, or headache before falling. Patient states her left knee also gave out 2 weeks ago which caused her to fall and have the same incident. Patient has follow-up with primary care provider for referral to pain management and physical therapy and also orthopedics. Patient denies any head trauma. Related Data Home Medications ?Medication ?Instructions ?Recorded ?Confirmed bupropion HCl 150 mg tablet,12 hr 150 mg PO BID 03/06/21 03/29/23 sustained-release levothyroxine 25 mcg capsule 12.5 mcg PO DAILY 07/30/23 phentermine 37.5 mg capsule 37.5 mg PO DAILY 07/30/23 topiramate 100 mg tablet (Topamax) 100 mg PO DAILY 07/30/23 Previous Rx's ?Medication ?Instructions ?Recorded ondansetron 4 mg disintegrating 4 mg PO TID PRN nausea and 12/12/23 tablet vomiting 5 days #10 tabs Allergies Allergy/AdvReac Type Severity Reaction Status Date / Time influenza virus vaccine, Allergy Mild UNKNOWN Verified 03/02/24 18:41 specific [FLU VACCINE] doxycycline [DOXYCYCLINE] Allergy Unknown SWELLING Verified 03/02/24 18:41 vancomycin [VANCOMYCIN] Allergy Unknown ANAPHYLAXIS Verified 03/02/24 18:41 metoclopramide [From Reglan] Allergy Unknown Verified 03/02/24 18:41 shellfish Allergy Mild Swelling Uncoded 07/30/23 13:22 Review of Systems 2 Review of Systems: Left knee, ankle, and wirist pain Yes all other systems are reviewed and are negative PMFSH Past Medical History Medical History Cholecystectomy planned Pre-diabetes Lyme disease Osteoarthritis PCOS (polycystic ovarian syndrome) Gastroparesis Surgical History History of cholecystectomy H/O partial thyroidectomy Family History Family History Maternal Aunt Breast cancer Social History Social History Alcohol intake: never Patient Tobacco Use Status: Never used Tobacco Advance Directives: No Advance Directives Information Provided: No Current occupational status: employed Physical Exam 2 Vital Signs: Vital Signs: Last Vital Signs Temp 98.1 F 03/02/24 21:09 Pulse 97 03/02/24 21:09 Resp 16 03/02/24 21:09 BP 165/107 H 03/02/24 21:09 Pulse Ox 99 03/02/24 21:09 O2 Del Method Room Air 03/02/24 21:09 BMI result Body Mass Index 37.9 Const: General: cooperative, healthy appearing, comfortable, no acute distress, well developed, alert, awake and Physically active O rientation/consciousness: patient oriented x3 HEENT: Head: Yes normal to inspection, Yes No palpable skull fracture present, Yes normocephalic, Yes atraumatic and No abrasion Ears: hearing grossly normal bilaterally, external ears normal, TM's normal bilaterally, TM normal on the right, TM normal on the left, EAC's normal, mastoids normal and no periauricular adenopathy Throat: Yes posterior oropharynx normal, Yes tonsils normal and Yes uvula midline Eyes: General: appearance normal, both eyes and all related structures Neck: Neck: Yes normal visual inspection, Yes full ROM, Yes no lymphadenopathy, Yes no meningeal signs, Yes trachea midline, Yes supple, No anterior neck swelling and No tender Chest: Chest palpation & inspection: normal inspection of the chest and normal palpation of entire chest wall Resp: Effort & Inspection: normal respiratory effort and able to speak in complete sentences Auscultation: clear to auscultation bilaterally Cardio: Jugular venous distension: no JVD GI: Inspection: Yes normal to inspection Palpation (GI): Soft to palpation, not firm, nontender, no guarding and not rigid : General: No CVA tenderness and Yes no CVA tenderness Back/Spine/Pelvis: Back: no CVA tenderness, No CVA tenderness and No back tenderness Skin: General skin exam: no rashes or lesions noted, elasticity normal and turgor normal Neuro: General: patient oriented x3, gait normal, tone normal, moves all extremities, Normal light touch and pain sensation, no meningeal signs, no focal motor deficits, CN's II-XI intact bilaterally and normal sensation to monofilament Extrem: General: Yes normal to inspection, Yes full ROM and Yes capillary refill normal Elbow/forearm/wrist images: 1. Positive for tenderness on palpation. Negative for crepitus, ecchymosis, deformity, or erythema. Motor, neuro, and vascular exam intact Knee images: 1. Positive for tenderness on palpation. Negative for deformity, ecchymosis, erythema, hotness, coldness, or stiffness. mOtor, neuro, and vascular exam is intact. Ankle/foot/toe images: 1. positive for tenderness on palpation. negative for ecchymosis, crepitus, deformities, erythema, pus discharge, foul odor, hotness, or coldness. Motor neuro exam is intact. Negative Bailey test Psych: Appearance: grossly normal, well kempt and not disheveled Course Course Course Narrative: This is a Rapid Medical Examination (RME) performed by Adri Alvarez PA-C in triage. Full HPI, ROS, assessment and treatment plan per primary provider in the Main ED. 34 yo female here w/ left wrist, left ankle, left knee, and lower back pain following fall 30 min [employer]. had fall last February at work with ongoing back and left knee issues. reports her left knee gave out today while stepping off a small step, fell forward onto left hand/ wrist, twisted left ankle. reports exacerbation of back and left knee pain. unable to bear weight on LLE. no head strike or loc. no thinners. Plan: xrs Medical Decision Making Medical Decision Making MDM Narrative: 34-year-old female presents to ED for left ankle left knee and left wrist pain after falling to the ground. Patient's left knee gave out while stepping down. Patient denies hitting head or loss of consciousness. Patient states left knee giving out in the past and has follow-up for primary care provider and PT and Orthopedics. Patient informed she may need MRI to find other any ligament tendon injury of the knee. Or even meniscus. Not suspecting brain bleed, cervical spine fracture, pneumothorax, hemothorax, abdominal traumatic etiology, cauda equinus, epidural abscess, compartment syndrome, DVT, arterial occlusion, osteomyelitis, compartment syndrome, or any other life threatening etiologies. Patient explained worrisome signs informed to return to the ED immediately. Patient states she only take Tylenol for pain. Differential Diagnosis Differential Diagnoses: The differential diagnosis associated with the presentation includes (Fracture, dislocation,) Admission/Observation Consideration of admission/observation: Escalation of care including admission/observation considered Independent Interpretation I performed an independent interpretation of an: Plain X-Ray Radiology Impression Discussion of test interpretation with radiology: I have reviewed the radiologist's reading. Independent Historian Clinical information obtained from an independent historian. History obtained from or confirmed by: Other (patient) External Record Review External record reviewed: Other (prior visits) Prescription Management I considered prescription management with: Pain Medication Discharge Plan Discharge Clinical Impression: Left knee pain, Ankle sprain, Sprain of wrist Patient Disposition: Home, Self-Care Instructions: Ankle Sprain (ED), Wrist Injury (ED), How to Use an Elastic Bandage (ED), Knee Pain (ED), R.I.C.E. Treatment (ED), Wrist Sprain (ED) Additional Instructions: Due to recurrent incidence of the knee giving out how recommend follow-up with your primary care provider for repeat MRI of your knee. You will need physical therapy and possible orthopedic referral. Keep your appointment with pain management. Return to the ED immediately for any bluish black discoloration, hotness/coldness of extremity, redness, calf pain, chest pain, shortness of breath, numbness/tingling, chest pain, headache, dizziness, vomiting blood, abdominal pain, neck pain, rectal bleeding, bloody urine, or any other concerning symptoms. COntinueTylenol [id number]. FINDINGS: Lumbar spine, there is mildly exaggerated lordosis. No significant degenerative changes are seen. No fractures or bony destructive lesions are identified. Left hand and wrist: No significant bone, joint or soft tissue abnormality seen. Left knee: No fractures, dislocations or chondrocalcinosis. Joint spaces are well preserved. There is a small osteophyte arising from the inferior surface of the patella. Enthesopathy present at the insertion of the quadriceps tendon. Left ankle: There is mild bilateral soft tissue swelling. No fractures or subluxations seen. XR/XR lumbar spine 2-3V IMPRESSION: 1. No evidence of an acute osseous injury. 2. Mild degenerative changes in the left knee. 3. Mild soft tissue swelling left ankle. Electronically signed by: Oleg Jenkins MD 03/02/2024 07:19 PM EDT Prescriptions: No Action bupropion HCl 150 mg tablet sustained-release 12 hr 150 mg PO BID ondansetron 4 mg tablet,disintegrating 4 mg PO TID PRN (Reason: nausea and vomiting) 5 Days Qty: 10 0RF topiramate [Topamax] 100 mg tablet 100 mg PO DAILY levothyroxine 25 mcg capsule 12.5 mcg PO DAILY phentermine 37.5 mg capsule 37.5 mg PO DAILY Rx Instructions: must administer 30 minutes before or 1-2 hours after breakfast Referrals: [facility] [place] Orthopedic Surgeons [Provider Group] (left wrist/ankle/knee pain. recurrent knee giving out.) Stand Alone Forms: Work/School Release Interventions: ED Discharge Assessment Last Done: 03/02/24 21:09 Discharge Date/Time: 03/02/24 21:10 Print Language: Estonian
[2024-03-02 21:09] VITALS: BP 165/107; PULSE 97; RESP 16; TEMP 36.7; O2SAT 99
== END 2024-03-02 21:10 | disposition home or self-care (01) ==
PROVIDERS: Emergency Provider Emergency Medicine; PCP Internal Medicine
DX: S93.402A Sprain of unspecified ligament of left ankle, initial encounter (principal); S63.502A Unspecified sprain of left wrist, initial encounter; M25.532 Pain in left wrist; M54.50 Low back pain, unspecified; W10.9XXA Fall (on) (from) unspecified stairs and steps, initial encounter; M25.562 Pain in left knee; Y93.89 Activity, other specified; Y92.89 Other specified places as the place of occurrence of the external cause; Y99.8 Other external cause status; Z79.899 Other long term (current) drug therapy
CPT/HCPCS: 72100; 73110; 73130; 73564; 73610; 99282; 99283; 99284

== ENCOUNTER 2024-03-07 23:16 | Emergency (ER) | payer OTHER, SELFPAY ==
--- NOTE | 2024-03-07 | ECG_ITS ---
Test Reason : TACHYCARDIA Blood Pressure : / mmHG Vent. Rate : 119 BPM Atrial Rate : 119 BPM P-R Int : 142 ms QRS Dur : 066 ms QT Int : 326 ms P-R-T Axes : 000 173 156 degrees QTc Int : 458 ms Sinus tachycardia Right axis deviation Abnormal ECG When compared with ECG of 05-MAR-2021 22:34, QRS axis Shifted right Referred By: Generic ED Physician Electronically Signed By:Jayson Tavarez
--- NOTE | ~2024-03-07 | CT_ITS ---
EXAMINATION: CT ABDOMEN AND PELVIS WITH CONTRAST CLINICAL INFORMATION: Abdominal pain. COMPARISON: October 20, 2021 TECHNIQUE: Multidetector volumetric images were obtained from the superior aspect of the liver through the pubic symphysis following administration 85 mL of Omnipaque 350 intravenous contrast. Sagittal and coronal reformatted images were obtained on the technologist's workstation. Oral contrast: No This CT examination was performed using dose optimization techniques as appropriate, variously including the following: *Automated exposure control *Adjustment of mA and/or kV according to patient size (this includes techniques or standardized protocols for targeted exams where dose is matched to indication/reason for exam; i.e. extremities or head) *Use of iterative reconstruction technique DLP: 682 mGy-cm FINDINGS: LUNG BASES: The visualized lung bases are unremarkable. LIVER, GALLBLADDER, AND BILIARY TREE: The liver is normal in size, shape, and attenuation. No focal hepatic lesion or biliary ductal dilatation is present. There has been a prior cholecystectomy. PANCREAS: Unremarkable. SPLEEN: Unremarkable. ADRENAL GLANDS: Unremarkable. KIDNEYS AND URETERS: The kidneys are normal in size, shape, and attenuation. No hydronephrosis, hydroureter, or calculi seen. No perinephric stranding. BLADDER: Unremarkable. GASTROINTESTINAL TRACT: The small and large bowel are unremarkable. The appendix is not identified. ABDOMINAL WALL: No significant hernia is appreciated. LYMPH NODES: Normal. VASCULAR: Unremarkable. PELVIC VISCERA: Unremarkable. OSSEOUS STRUCTURES: Unremarkable. CT/CT abdomen pelvis w IV con IMPRESSION: No significant abnormality. Fleischner guidelines were followed. Electronically signed by: Romie Sharp MD 03/08/2024 05:25 AM EDT
[2024-03-07 23:19] VITALS: BP 178/122; PULSE 133; RESP 20; TEMP 36.8; O2SAT 94; BMI 37.9
[2024-03-07 23:45] LABS: MANUAL DIFF FLAG NO
[2024-03-07 23:46] LABS: Basophils Absolute Auto 0.1 X10*3/uL (0.0-0.2); Basophils Percent Auto 0.3 % (0-2); Eosinophils Absolute Auto 0.2 X10*3/uL (0.0-0.4); Eosinophils Percent Auto 0.7 % (0-4); Hematocrit 42.6 % (37.0-47.0); Hemoglobin 14.7 g/dl (12.0-16.0); Imm Gran Abs Auto 0.13 X10*3/uL (0.00-0.03); Imm Gran Pct Auto 0.5 % (0.0-0.4); Lymphocytes Absolute Auto 4.3 X10*3/uL (1.2-4.9); Lymphocytes Percent Auto 17.5 % (20-40); Mean Corpuscular HGB Conc 34.5 g/dl (31.0-35.0); Mean Corpuscular Hemoglobin 29.4 pg (27.0-33.0); Mean Corpuscular Volume 85.2 fL (80.0-98.0); Mean Platelet Volume 9.7 fL (9.4-12.3); Monocytes Absolute Auto 1.3 X10*3/uL (0.1-1.2); Monocytes Percent Auto 5.4 % (2-11); Neutrophils Absolute Auto 18.5 x10*3/uL (2.0-8.3); Neutrophils Percent Auto 75.6 % (45-73); Platelet Count 455 X10*3/uL (160-400); Red Cell Distribution Width 12.6 % (11.0-16.0); White Blood Count 24.5 X10*3/uL (4.8-10.8)
[2024-03-08 00:09] LABS: Alanine Aminotransferase 36 U/L (0-31); Albumin Level 4.3 g/dL (3.5-5.0); Alkaline Phosphatase 72 U/L (39-117); Anion Gap 18 (12-20); Aspartate Amino Transferase 25 U/L (5-31); Bilirubin Total 0.3 mg/dL (0.0-1.0); Blood Urea Nitrogen 18 mg/dL (9-16); Calcium 9.2 mg/dL (8.4-10.2); Carbon Dioxide 16 mmol/L (22-29); Chloride 108 mmol/L (96-108); Creatinine Clr Calc Pharmacy 47.9; Estimated Glomerular Filt Rate 42; Glucose Random 266 mg/dL (60-115); HCG Quantitative < 2 mIU/mL; Lipase 47 U/L (8-78); Potassium 3.7 mmol/L (3.3-5.1); Sodium 138 mmol/L (135-145)
[2024-03-08 00:22] LABS: Influenza A PCR NEGATIVE (Negative); Influenza B PCR NEGATIVE (Negative); Resp Syncy Virus RNA Qual PCR NEGATIVE (Negative); SARS COV2 PCR INHOUSE NEGATIVE (Negative)
--- NOTE | 2024-03-08 00:41 | PC.NURSE ---
pt brought back to ED room 7, blood cultures and lactic acid obtained by this rn as pt flagging sepsis for High HR 133, high RR 30, and WBC wount elevated to 24.5 MD zurita aware
[2024-03-08] MEDS: ondansetron HCL 4 MG/2 ML VIAL IVPUSH (00:52)
[2024-03-08] MEDS: Piperacillin Sodium/Tazobactam 3.375 GM in 0.9 % Sodium Chloride 50 ML IV (00:52)
[2024-03-08] MEDS: 0.9 % Sodium Chloride 1,000 ML 999 ML IV ×2 (00:53→01:07)
--- NOTE | 2024-03-08 00:53 | ED_ITS ---
HPI - Abdominal Pain General Chief Complaint: Abdominal Pain Stated Complaint: GI Flare up, skin infection Time Seen by Provider: 03/08/24 00:42 Source: patient Mode of arrival: ambulatory Limitations: no limitations History of Present Illness ED Provider: yudith SLAUGHTER narrative: Patient history of diabetic gastroparesis does have diffuse abdominal pain for months got worse in last few days cramping nauseated no diarrhea vomited 7 times today in last 3 hours no fever no chills history of same in the past patient did not eat much for last 3 days because of nausea Related Data Home Medications ?Medication ?Instructions ?Recorded ?Confirmed bupropion HCl 150 mg tablet,12 hr 150 mg PO BID 03/06/21 03/29/23 sustained-release levothyroxine 25 mcg capsule 12.5 mcg PO DAILY 07/30/23 phentermine 37.5 mg capsule 37.5 mg PO DAILY 07/30/23 topiramate 100 mg tablet (Topamax) 100 mg PO DAILY 07/30/23 Previous Rx's ?Medication ?Instructions ?Recorded ondansetron 4 mg disintegrating 4 mg PO TID PRN nausea and 12/12/23 tablet vomiting 5 days #10 tabs Allergies Allergy/AdvReac Type Severity Reaction Status Date / Time influenza virus vaccine, Allergy Mild UNKNOWN Verified 03/07/24 23:21 specific [FLU VACCINE] doxycycline [DOXYCYCLINE] Allergy Unknown SWELLING Verified 03/07/24 23:21 vancomycin [VANCOMYCIN] Allergy Unknown ANAPHYLAXIS Verified 03/07/24 23:21 metoclopramide [From Reglan] Allergy Unknown Verified 03/07/24 23:21 shellfish Allergy Mild Swelling Uncoded 07/30/23 13:22 Review of Systems Review of Systems Yes all other systems are reviewed and are negative PMF Past Medical History Medical History Cholecystectomy planned Pre-diabetes Lyme disease Osteoarthritis PCOS (polycystic ovarian syndrome) Gastroparesis Surgical History History of cholecystectomy H/O partial thyroidectomy Family History Family History Maternal Aunt Breast cancer Social History Social History Unable to assess alcohol history related to: Unknown Alcohol intake: never Patient Tobacco Use Status: Never used Tobacco Smoked in Last 30 Days: No Use of substances other than those prescribed or required for medical reasons: Unknown Advance Directives: No Current occupational status: employed Physical Exam ED Vital Signs: Vital Signs - 24 hr 03/07/24 23:19 03/08/24 01:47 03/08/24 02:24 Temperature 98.2 F 97.8 F Pulse Rate 133 H 109 H 108 H Respiratory Rate 20 18 20 Blood Pressure 178/122 H 115/79 106/65 Pulse Oximetry 94 94 95 Oxygen Delivery Method Room Air Room Air Room Air 03/08/24 03:14 03/08/24 05:43 03/08/24 05:53 Temperature 97.9 F Pulse Rate 111 H 117 H 117 H Respiratory Rate 18 17 17 Blood Pressure 114/68 125/77 125/77 Pulse Oximetry 96 94 94 Oxygen Delivery Method Room Air Room Air Room Air BMI result Body Mass Index 37.9 Appearance: Alert. Oriented X3. No acute distress. Eyes: No pallor or icterus ENT: Pharynx normal. Oral Mucosa moist Neck: Normal inspection. Neck supple. CVS: Normal heart rate and rhythm. Pulses normal. Respiratory: No respiratory distress. Equal air entry bilateral, no wheezing/rales/rhonchi Abdomen: Soft and diffuse tenderness no focal tenderness Bowel sounds are present, no mass palpable, no CVA tenderness Skin: Skin warm and dry. Normal skin color. Normal skin turgor. Extremities: No lower extremity edema. No calf tenderness Neuro: Oriented X 3. No motor deficit. Medical Decision Making Medical Decision Making [facility] Narrative: Patient has been gastroparesis came with increased vomiting workup showed leukocytosis with tachycardia no source of infection patient was given IV fluids and Zosyn prophylactically CT scan of the abdomen done which was negative for acute after IV fluids WBC count improved patient is feeling much better taking p.o. fluids lactic acid level was also improved it was type B lactic acidosis not from the sepsis but from volume loss patient has had this time feeling much better no indication for admission will discharge patient home advised to continue Compazine and have small amount of meals and liquids Differential Diagnosis Differential Diagnoses: The differential diagnosis associated with the presentation includes Diverticulitis/gastroparesis Admission/Observation Consideration of admission/observation: Escalation of care including admission/observation considered Lab Data [facility] Lab Attestation statement: I reviewed the patient's lab results. 03/08/24 02:53 03/08/24 02:53 Labs: Lab Results 03/07/24 03/08/24 03/08/24 Range/Units 23:39 00:38 02:53 WBC 24.5 H 15.8 H (4.8-10.8) X10*3/uL RBC 5.00 4.21 (4.20-5.50) X10*6/uL Hgb 14.7 12.5 (12.0-16.0) g/dl Hct 42.6 36.0 L (37.0-47.0) % MCV 85.2 85.5 (80.0-98.0) fL MCH 29.4 29.7 (27.0-33.0) pg MCHC 34.5 34.7 (31.0-35.0) g/dl RDW 12.6 12.6 (11.0-16.0) % Plt Count 455 H 317 D (160-400) X10*3/uL MPV 9.7 9.6 (9.4-12.3) fL Immature Gran % (Auto) 0.5 H 0.3 (0.0-0.4) % Neut % (Auto) 75.6 H 88.8 H (45-73) % Lymph % (Auto) 17.5 L 7.6 L (20-40) % [place] % (Auto) 5.4 2.8 (2-11) % Eos % (Auto) 0.7 0.3 (0-4) % Baso % (Auto) 0.3 0.2 (0-2) % Lymph # (Auto) 4.3 1.2 (1.2-4.9) X10*3/uL [place] # (Auto) 1.3 H 0.4 (0.1-1.2) X10*3/uL Eos # (Auto) 0.2 0.1 (0.0-0.4) X10*3/uL Baso # (Auto) 0.1 0.0 (0.0-0.2) X10*3/uL Abs Immat Gran (auto) 0.13 H 0.05 H (0.00-0.03) X10*3/uL Absolute Neuts (auto) 18.5 H 14.0 H (2.0-8.3) x10*3/uL Absolute Nucleated RBC 0.000 0.000 (0.0-0.012) X10*3/uL Nucleated RBC % (auto) 0.0 0.0 (0.0-0.2) /100WBC Sodium 138 139 (135-145) mmol/L Potassium 3.7 4.1 (3.3-5.1) mmol/L Chloride 108 113 H (96-108) mmol/L Carbon Dioxide 16 L 17 L (22-29) mmol/L Anion Gap 18 13 (12-20) BUN 18 H 16 (9-16) mg/dL Creatinine 1.42 H 0.94 (0.5-1.4) mg/dL Estim Creat Clear Calc 47.9 72.3 Estimated GFR 42 > 60 Random Glucose 266 H 209 H (60-115) mg/dL Lactic Acid 2.5 H* Cancelled (0.5-2.0) mmol/L Lactic Acid F/U @ 2Hr 1.4 (0.5-2.0) mmol/L Calcium 9.2 7.6 L D (8.4-10.2) mg/dL Total Bilirubin 0.3 (0.0-1.0) mg/dL AST 25 (5-31) U/L ALT 36 H (0-31) U/L Alkaline Phosphatase 72 (39-117) U/L Total Protein 8.0 (6.5-8.0) g/dL Albumin 4.3 (3.5-5.0) g/dL Lipase 47 (8-78) U/L Beta HCG, Quant < 2 mIU/mL Urine Color Urine Appearance Urine pH (5.0-9.0) Ur Specific [place] (1.005-1.025) Urine Protein (Neg-Trace) mg/dL Urine Glucose (UA) (Negative) mg/dL Urine Ketones (Negative) mg/dL Urine Blood (Negative) Urine Nitrite (Negative) Ur Leukocyte Esterase (Negative) Influenza Type A (PCR) NEGATIVE (Negative) Influenza Type B (PCR) NEGATIVE (Negative) RSV RNA Qual (PCR) NEGATIVE (Negative) SARS-CoV-2 RNA (RT-PCR) NEGATIVE (Negative) 03/08/24 Range/Units 03:16 WBC (4.8-10.8) X10*3/uL RBC (4.20-5.50) X10*6/uL Hgb (12.0-16.0) g/dl Hct (37.0-47.0) % MCV (80.0-98.0) fL MCH (27.0-33.0) pg MCHC (31.0-35.0) g/dl RDW (11.0-16.0) % Plt Count (160-400) X10*3/uL MPV (9.4-12.3) fL Immature Gran % (Auto) (0.0-0.4) % Neut % (Auto) (45-73) % Lymph % (Auto) (20-40) % [place] % (Auto) (2-11) % Eos % (Auto) (0-4) % Baso % (Auto) (0-2) % Lymph # (Auto) (1.2-4.9) X10*3/uL [place] # (Auto) (0.1-1.2) X10*3/uL Eos # (Auto) (0.0-0.4) X10*3/uL Baso # (Auto) (0.0-0.2) X10*3/uL Abs Immat Gran (auto) (0.00-0.03) X10*3/uL Absolute Neuts (auto) (2.0-8.3) x10*3/uL Absolute Nucleated RBC (0.0-0.012) X10*3/uL Nucleated RBC % (auto) (0.0-0.2) /100WBC Sodium (135-145) mmol/L Potassium (3.3-5.1) mmol/L Chloride (96-108) mmol/L Carbon Dioxide (22-29) mmol/L Anion Gap (12-20) BUN (9-16) mg/dL Creatinine (0.5-1.4) mg/dL Estim Creat Clear Calc Estimated GFR Random Glucose (60-115) mg/dL Lactic Acid (0.5-2.0) mmol/L Lactic Acid F/U @ 2Hr (0.5-2.0) mmol/L Calcium (8.4-10.2) mg/dL Total Bilirubin (0.0-1.0) mg/dL AST (5-31) U/L ALT (0-31) U/L Alkaline Phosphatase (39-117) U/L Total Protein (6.5-8.0) g/dL Albumin (3.5-5.0) g/dL Lipase (8-78) U/L Beta HCG, Quant mIU/mL Urine Color Yellow Urine Appearance Clear Urine pH 5.5 (5.0-9.0) Ur Specific [place] 1.020 (1.005-1.025) Urine Protein Negative (Neg-Trace) mg/dL Urine Glucose (UA) 250 H (Negative) mg/dL Urine Ketones Trace (Negative) mg/dL Urine Blood Negative (Negative) Urine Nitrite Negative (Negative) Ur Leukocyte Esterase Negative (Negative) Influenza Type A (PCR) (Negative) Influenza Type B (PCR) (Negative) RSV RNA Qual (PCR) (Negative) SARS-CoV-2 RNA (RT-PCR) (Negative) Medications Administered Discontinued Medications Generic Name Dose Route Start Last Admin Trade Name Freq PRN Reason Stop Dose Admin Sodium Chloride 1,000 mls @ 999 mls/hr 03/08/24 00:42 03/08/24 02:23 Ns IV 03/08/24 01:42 Infused .Q1H1M ONE Infusion Piperacillin Sod/Tazobactam 50 mls @ 100 mls/hr 03/08/24 00:42 03/08/24 01:22 Sod 3.375 gm/ Sodium Chloride IV 03/08/24 01:11 Infused ONCE ONE Infusion Sodium Chloride 1,000 mls @ 999 mls/hr 03/08/24 01:00 03/08/24 02:23 Ns IV 03/08/24 02:00 Infused .Q1H1M ONE Infusion Iohexol 85 ml 03/08/24 03:12 03/08/24 03:12 Iohexol 350 Mg/Ml 100 Ml Infus..Btl IV 03/08/24 03:13 85 ml ONCE ONE Administration Lorazepam 2 mg 03/08/24 00:59 03/08/24 01:07 Lorazepam 2 Mg/Ml Vial IVPUSH 03/08/24 01:00 2 mg ONCE ONE Administration Ondansetron HCl 4 mg 03/08/24 00:44 03/08/24 00:52 Ondansetron Hcl 4 Mg/2 Ml Vial IVPUSH 03/08/24 00:45 4 mg ONCE ONE Administration Prochlorperazine Edisylate 10 mg 03/08/24 05:35 03/08/24 05:39 Prochlorperazine Edisylate 10 Mg/2 Ml Vial IVPUSH 03/08/24 05:36 10 mg ONCE ONE Administration Discharge Plan Discharge Clinical Impression: Diabetes mellitus with gastroparesis Patient Disposition: Home, Self-Care Instructions: Diabetic Gastroparesis (DC) Additional Instructions: Continue your medication as prescribed by your PCP Have small amount of meals more frequently Avoid fried food Prescriptions: No Action bupropion HCl 150 mg tablet sustained-release 12 hr 150 mg PO BID ondansetron 4 mg tablet,disintegrating 4 mg PO TID PRN (Reason: nausea and vomiting) 5 Days Qty: 10 0RF topiramate [Topamax] 100 mg tablet 100 mg PO DAILY levothyroxine 25 mcg capsule 12.5 mcg PO DAILY phentermine 37.5 mg capsule 37.5 mg PO DAILY Rx Instructions: must administer 30 minutes before or 1-2 hours after breakfast Interventions: ED Discharge Assessment Last Done: 03/08/24 05:53 Discharge Date/Time: 03/08/24 05:55 Print Language: Kittitian
[2024-03-08] MEDS: LORazepam 2 MG/ML VIAL IVPUSH (01:07)
[2024-03-08 01:12] LABS: Lactic Acid 2.5 mmol/L (0.5-2.0)
[2024-03-08 01:47] VITALS: BP 115/79; PULSE 109; RESP 18; O2SAT 94
--- NOTE | 2024-03-08 01:47 | PC.NURSE ---
iv fluids still running.
[2024-03-08 02:24] VITALS: BP 106/65; PULSE 108; RESP 20; TEMP 36.6; O2SAT 95
[2024-03-08 02:41] LABS: Reflex Lactate? Lactic Acid Added
[2024-03-08 02:59] LABS: MANUAL DIFF FLAG NO
[2024-03-08 03:02] LABS: Basophils Percent Auto 0.2 % (0-2); Eosinophils Absolute Auto 0.1 X10*3/uL (0.0-0.4); Eosinophils Percent Auto 0.3 % (0-4); Hemoglobin 12.5 g/dl (12.0-16.0); Imm Gran Abs Auto 0.05 X10*3/uL (0.00-0.03); Imm Gran Pct Auto 0.3 % (0.0-0.4); Lymphocytes Absolute Auto 1.2 X10*3/uL (1.2-4.9); Lymphocytes Percent Auto 7.6 % (20-40); Mean Corpuscular HGB Conc 34.7 g/dl (31.0-35.0); Mean Corpuscular Hemoglobin 29.7 pg (27.0-33.0); Mean Corpuscular Volume 85.5 fL (80.0-98.0); Mean Platelet Volume 9.6 fL (9.4-12.3); Monocytes Absolute Auto 0.4 X10*3/uL (0.1-1.2); Monocytes Percent Auto 2.8 % (2-11); Neutrophils Percent Auto 88.8 % (45-73); Platelet Count 317 X10*3/uL (160-400); Red Blood Count 4.21 X10*6/uL (4.20-5.50); Red Cell Distribution Width 12.6 % (11.0-16.0); White Blood Count 15.8 X10*3/uL (4.8-10.8)
[2024-03-08 03:11] LABS: ~Lactic Acid-LAB USE ONLY 1.4 mmol/L (0.5-2.0)
[2024-03-08] MEDS: iohexoL 350 MG/ML 100 ML INFUS..BTL 85 ML IV (03:12)
[2024-03-08 03:14] VITALS: BP 114/68; PULSE 111; RESP 18; O2SAT 96
[2024-03-08 03:22] LABS: Anion Gap 13 (12-20); Blood Urea Nitrogen 16 mg/dL (9-16); Calcium 7.6 mg/dL (8.4-10.2); Carbon Dioxide 17 mmol/L (22-29); Chloride 113 mmol/L (96-108); Creatinine Clr Calc Pharmacy 72.3; Estimated Glomerular Filt Rate > 60; Glucose Random 209 mg/dL (60-115); Potassium 4.1 mmol/L (3.3-5.1); Sodium 139 mmol/L (135-145)
[2024-03-08 03:23] LABS: Appearance Urine Clear; Color Urine Yellow; Glucose Urine UA 250 mg/dL (Negative); Leukocyte Esterase Urine Negative (Negative); Nitrite Urine Negative (Negative); PH 5.5 (5.0-9.0); Urine Blood Negative (Negative); Urine Ketones Trace mg/dL (Negative); Urine Protein Negative (Neg-Trace)
[2024-03-08] MEDS: Prochlorperazine Edisylate 10 MG/2 ML VIAL IVPUSH (05:39)
[2024-03-08 05:43] VITALS: BP 125/77; PULSE 117; RESP 17; O2SAT 94
[2024-03-08 05:53] VITALS: BP 125/77; PULSE 117; RESP 17; TEMP 36.6; O2SAT 94
== END 2024-03-08 05:55 | disposition home or self-care (01) ==
PROVIDERS: Emergency Provider Internal Medicine; PCP Internal Medicine
DX: E11.43 Type 2 diabetes mellitus with diabetic autonomic (poly)neuropathy (principal); R11.2 Nausea with vomiting, unspecified; R10.2 Pelvic and perineal pain; R00.0 Tachycardia, unspecified; Z03.818 Encounter for observation for suspected exposure to other biological agents ruled out; Z79.899 Other long term (current) drug therapy
CPT/HCPCS: 0241U; 36415; 74177; 80048; 80053; 81003; 83605; 83690; 84702; 85025; 87040; 93005; 96361; 96365; 96375; 99285; J0737; J2060; J2405; J2543; Q9967

== ENCOUNTER → 2024-03-07 23:26 | Outpatient (BNV) | payer OTHER, SELFPAY | PROVIDERS: Emergency Provider Internal Medicine; PCP Internal Medicine; Visit Provider Internal Medicine Cardiovascular Disease | DX: R00.0 Tachycardia, unspecified (principal); R94.31 Abnormal electrocardiogram [ECG] [EKG] | CPT/HCPCS: 93010 ==

== ENCOUNTER 2024-03-10 09:00 | Outpatient (AMB) | payer OTHER, SELFPAY ==
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
[2024-03-10 09:04] VITALS: BP 142/92; PULSE 107; RESP 15; O2SAT 97; BMI 38.9
== END 2024-03-10 09:41 | disposition home or self-care (01) ==
LOC: HO.PMC 09:00
PROVIDERS: PCP Internal Medicine; Visit Provider Internal Medicine
DX: M25.562 Pain in left knee (principal); M54.50 Low back pain, unspecified
CPT/HCPCS: 99204

== ENCOUNTER → 2024-03-10 09:00 | Outpatient (BNVA) | payer OTHER, SELFPAY | PROVIDERS: PCP Internal Medicine; Visit Provider Internal Medicine ==

== ENCOUNTER 2024-03-17 08:41 | Outpatient (AMB) | payer OTHER, SELFPAY ==
--- NOTE | 2024-03-17 09:07 | MHC.OFFVIS ---
Vital Signs 03/17/24 09:13 Height 4 ft 9 in Weight 180 lb BMI 38.9 Intake Visit Reasons: NewProb- LT ankle sprain, ED f/u Intake Note: Nila a 34 year old female who presents today for an ER follow up of left ankle, DOI 03/02/24. Patient reports she was going down 2 stairs and when she planted her left foot, her left knee gave out and her left ankle rolled which caused her to fall. She presented to [facility] where x-rays were taken and referred to orthopedics. States her pain is located at the anterior aspect and radiates to the lateral side, mostly with stretching and flexing. She uses an ankle brace as needed. She has occasional tingling in her 5th, 4th, and 3rd toe. She states having a previous work injury which is the cause of her fall. Allergies influenza virus vaccine, specific [FLU VACCINE] Allergy (Mild, Verified 03/17/24 09:13) UNKNOWN doxycycline [DOXYCYCLINE] Allergy (Unknown, Verified 03/17/24 09:13) SWELLING vancomycin [VANCOMYCIN] Allergy (Unknown, Verified 03/17/24 09:13) ANAPHYLAXIS metoclopramide [From Reglan] Allergy (Verified 03/17/24 09:13) Unknown shellfish Allergy (Mild, Uncoded 03/17/24 09:13) Swelling Medication List - Last Reconciled 03/17/24 by Leonardo Dobbs PA-C bupropion HCl SR 150 mg PO BID levothyroxine 12.5 mcg PO DAILY semaglutide (Rybelsus) 7 mg PO DAILY topiramate (Topamax) 100 mg PO DAILY HPI HPI NewProb- LT ankle sprain, ED f/u: Details: 34-year-old female who presents to the office today for an ED follow-up of left ankle injury about 2 weeks ago. She reports she was going downstairs when her knee gave out and she injured her ankle. She takes Tylenol for her pain. ? She has a history of work injury on her knee and reports her knee occasionally gives out. ? 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 [facility] Medical History Cholecystectomy planned Pre-diabetes Lyme disease Osteoarthritis PCOS (polycystic ovarian syndrome) Gastroparesis Surgical History History of cholecystectomy H/O partial thyroidectomy Family History Maternal Aunt Breast cancer Social History Unable to assess alcohol history related to: Unknown Alcohol intake: never Patient Tobacco Use Status: Never used Tobacco Current occupational status: employed Female Reproductive History Menstrual Age of Menarche: 15 Physical Exam Vital Signs: BMI result Body Mass Index 38.9 Const General: cooperative and no acute distress Orientation/consciousness: patient oriented x3 Resp Effort & Inspection: normal respiratory effort and able to speak in complete sentences Cardio Peripheral pulses: Peripheral pulses 2+ throughout Neuro General: patient oriented x3 Extrem Other: Left ankle: Normal to inspection. No swelling, no abrasion, no ecchymosis. She has tenderness over the anterior aspect of the ankle which extends to the lateral aspect and along the perineal tendon. Full ROM without crepitus or laxity. She has discomfort with plantar and dorsiflexion of foot and also some discomfort with inversion of ankle with resistance. NVI. Results Reviewed Results Reviewed: Xrays oft he left ankle obtained on 02/2024 IMPRESSION: 1. No evidence of an acute osseous injury. 2. Mild soft tissue swelling left ankle. Assessment & Plan Assessment & Plan (1) Left ankle sprain: Code(s): S93.402A - Sprain of unspecified ligament of left ankle, initial encounter Category: Medical Qualifiers: Encounter type: initial encounter Involved ligament of ankle: anterior talofibular ligament Qualified Code(s): S93.492A - Sprain of other ligament of left ankle, initial encounter Plan She does have a lace up ankle brace that she purchased on her own. She can continue using the brace for a few weeks especially with working as she is on her feet all day and when going on uneven grounds. She will also begin a course of physical therapy to work on ROM, gentle strength and proprioceptive training. She will see us back as needed unless symptoms persist or worsen.? Orders: Orders PT Evaluation and Treatment Today S93.402A - Sprain of unspecified ligament of left ankle, initial encounter Coding Level of Care Code New Pt Level 3 (58123) Complex EM visit Add On G2211 Diagnoses Sprain of anterior talofibular ligament of left ankle, initial encounter S93.492A Encounter type: initial encounter Involved ligament of ankle: anterior talofibular ligament
[2024-03-17 09:13] VITALS: BMI 38.9
== END 2024-03-17 09:21 | disposition home or self-care (01) ==
LOC: HO.HOS 08:42
PROVIDERS: PCP Internal Medicine; Visit Provider Physician Assistant
DX: S93.492A Sprain of other ligament of left ankle, initial encounter (principal)
CPT/HCPCS: 99213

== ENCOUNTER → 2024-03-17 08:41 | Outpatient (BNVA) | payer OTHER, SELFPAY | PROVIDERS: PCP Internal Medicine; Visit Provider Physician Assistant ==

== ENCOUNTER 2024-03-19 19:29 | Emergency (ER) | payer OTHER, SELFPAY ==
--- NOTE | ~2024-03-19 | CT_ITS ---
EXAMINATION: CT ABDOMEN AND PELVIS WITHOUT CONTRAST CLINICAL INFORMATION: Left lower quadrant pain. History of diverticulitis. COMPARISON: CT dated March 08, 2024. TECHNIQUE: Multidetector volumetric imaging was performed from the superior aspect of the liver through the pubic symphysis. Sagittal and coronal reformatted images were obtained on the technologist's workstation. This CT examination was performed using dose optimization techniques as appropriate, variously including the following: *Automated exposure control *Adjustment of mA and/or kV according to patient size (this includes techniques or standardized protocols for targeted exams where dose is matched to indication/reason for exam; i.e. extremities or head) *Use of iterative reconstruction technique DLP: 638 mGy-cm FINDINGS: Limited evaluation of the intra-abdominal organs and vascular structures due to lack of IV contrast. LIVER, GALLBLADDER, AND BILIARY TREE: Liver measures 18 cm. No intrahepatic biliary ductal dilatation. Status post cholecystectomy, likely laparoscopic. Common bile duct measures 5 mm. PANCREAS: No peripancreatic fluid collections. No main pancreatic ductal dilatation. SPLEEN: Measures 8 cm. ADRENAL GLANDS: No nodular lesion. KIDNEYS AND URETERS: No hydronephrosis. No nephrolithiasis. BLADDER: Fluid-filled. GASTROINTESTINAL TRACT: There is a focal faint (2 cm antimesenteric pericolonic edema pattern involving the proximal to me descending colon (image #42 series 3). No intestinal obstruction pattern. No ascites. No pneumoperitoneum. No pneumatosis intestinalis. Appendix is short and retrocecal. ABDOMINAL WALL: Small fat-containing umbilical hernia and diastases abdominal rectus muscles. LYMPH NODES: Nonspecific mildly prominent mesenteric lymph nodes with mesenteric edema pattern. VASCULAR: No aneurysm, abdominal aorta. PELVIC VISCERA: 3.7 cm cystic lesion, left adnexa. OSSEOUS STRUCTURES: Castellvi type III sacralization. No acute fracture or listhesis. No lytic or blastic lesions. CT/CT abdomen pelvis wo IV con IMPRESSION: Consider epiploic appendagitis, proximal to mid descending colon 3.7 cm cystic lesion, left adnexa. Small fat-containing umbilical hernia. Hepatomegaly.. Fleischner guidelines were followed. Electronically signed by: Douglas Gonzalez MD 03/20/2024 09:12 AM [facility] [place]
[2024-03-19 19:50] VITALS: BP 185/125; PULSE 115; RESP 18; TEMP 36.9; O2SAT 98; BMI 37.9
--- NOTE | 2024-03-19 20:09 | ED.ABDPAIN ---
HPI - Abdominal Pain General Chief Complaint: Abdominal Pain Stated Complaint: N/V/D Time Seen by Provider: 03/20/24 04:01 Source: patient and old records reviewed Mode of arrival: ambulatory Limitations: no limitations History of Present Illness ED Provider: ALEAH SLAUGHTER narrative: 34 yo female with PMH of UTI, idiopathic gastroparesis, chronic intermittent elevated WBC who reports she has been in gastroparesis flare for almost 2 weeks. She was seen here for same end of February with normal CT scan. She was also at [facility]. She notes she has more diarrhea than usual but everything is the same. No fevers reported. She has tried meds at home such as dramamine but nothing helps MD elicited complaint: abdominal pain Pertinent past history: other Onset (ago): week(s) (2) Pain Consistency: intermittent Location: diffuse Severity: moderate Quality: aching Radiation: none Migration to: no migration Exacerbating factors: eating Relieving factors: nothing Context: history of similar episodes Associated symptoms: nausea, vomiting and diarrhea Related Data Home Medications ?Medication ?Instructions ?Recorded ?Confirmed bupropion HCl 150 mg tablet,12 hr 150 mg PO BID 03/06/21 03/17/24 sustained-release levothyroxine 25 mcg capsule 12.5 mcg PO DAILY 07/30/23 03/17/24 topiramate 100 mg tablet (Topamax) 100 mg PO DAILY 07/30/23 03/17/24 semaglutide 7 mg tablet (Rybelsus) 7 mg PO DAILY 03/10/24 03/17/24 Previous Rx's ?Medication ?Instructions ?Recorded morphine 15 mg immediate release 15 mg PO Q6H PRN pain #10 tabs 03/20/24 tablet prochlorperazine maleate 10 mg 10 mg PO Q8H PRN nausea and 03/20/24 tablet (Compazine) vomiting #20 tabs Allergies Allergy/AdvReac Type Severity Reaction Status Date / Time influenza virus vaccine, Allergy Mild UNKNOWN Verified 03/19/24 19:51 specific [FLU VACCINE] doxycycline [DOXYCYCLINE] Allergy Unknown SWELLING Verified 03/19/24 19:51 vancomycin [VANCOMYCIN] Allergy Unknown ANAPHYLAXIS Verified 03/19/24 19:51 metoclopramide [From Reglan] Allergy Unknown Verified 03/19/24 19:51 shellfish Allergy Mild Swelling Uncoded 03/17/24 09:13 Review of Systems Review of Systems Constitutional : No Weight loss, No Fever, No Chills ENT/Mouth : No sore throat, No Rhinorrhea Eyes: No Swelling, No Redness Cardiovascular : No Chest Pain, No SOB, NoEdema Respiratory : No Cough, No Sputum, No Wheezing Gastrointestinal : Positive Nausea, Positive Vomiting, positive Diarrhea, positive abdominal Pain, No Hematochezia, No Melena Genitourinary : No Dysuria, No Urinary Frequency, No Hematuria, No Urgency Musculoskeletal : No joint pain, No Myalgias, No Joint Swelling Skin : No Skin Lesions, No rash Neuro : No Weakness, No Numbness, No Dizziness, No Headache Psych : No Anxiety/Panic, No Depression Heme/Lymph: No Bruising, No Lymphadenopathy Endocrine : No Polyuria, No Polydipsia All other systems reviewed and are negative. [facility] Past Medical History Attestation statement: The following information was validated with the patient. Source: old records reviewed Medical History Cholecystectomy planned Pre-diabetes Lyme disease Osteoarthritis PCOS (polycystic ovarian syndrome) Gastroparesis Surgical History History of cholecystectomy H/O partial thyroidectomy Family History Family History Maternal Aunt Breast cancer Social History Social History Unable to assess alcohol history related to: Unknown Alcohol intake: never Patient Tobacco Use Status: Never used Tobacco Smoked in Last 30 Days: No Use of substances other than those prescribed or required for medical reasons: No Advance Directives: No Advance Directives Information Provided: Yes Do you have a plan to hurt others: No Plan Current occupational status: employed Physical Exam ED Vital Signs: Vital Signs - 24 hr 03/19/24 19:50 03/19/24 22:57 03/20/24 02:58 Temperature 98.4 F 97.4 F 98.5 F Pulse Rate 115 H 111 H 108 H Pulse Rate [Monitor] Respiratory Rate 18 20 16 Blood Pressure 185/125 H 174/119 H 156/101 H Pulse Oximetry 98 98 98 Oxygen Delivery Method Room Air Room Air Room Air 03/20/24 02:58 03/20/24 04:55 03/20/24 06:48 Temperature 98 F 97 F Pulse Rate 96 84 Pulse Rate [Monitor] 108 H Respiratory Rate 15 15 Blood Pressure 148/102 H 110/64 Pulse Oximetry 95 97 Oxygen Delivery Method Room Air Room Air 03/20/24 08:55 Temperature 98 F Pulse Rate 96 Pulse Rate [Monitor] Respiratory Rate 15 Blood Pressure 127/65 Pulse Oximetry 96 Oxygen Delivery Method Room Air BMI result Body Mass Index 37.9 Appearance: Alert. Oriented X3. No acute distress. Eyes: Pupils equal, round and reactive to light. ENT: Pharynx normal. Neck: Normal inspection. Neck supple. CVS: Normal heart rate and rhythm. Pulses normal. Respiratory: No respiratory distress. Breath sounds normal. Abdomen: Soft and diffuse ttp no rebound or guarding Skin: Skin warm and dry. Normal skin color. Normal skin turgor. Extremities: No lower extremity edema. No calf ttp Neuro: Oriented X 3. No motor deficit. No sensory deficit. Course Course Course Narrative: This is a Rapid Medical Examination (RME) performed by Adri Alvarez PA-C in triage. Full HPI, ROS, assessment and treatment plan per primary provider in the Main ED. 34 yo female here for eval of N/V/D x2 weeks. assoc diffuse abd pain. hx gastroparesis. Plan: labs, UA, viral swabs Reevaluation(s) Reevaluation #1: CRP and ESR negative doubt acute infection at this time WBC count is chronic Reevaluation #2: has diffuse pain doubt issue such as torsion given 2 weeks of symptoms will start to trial oral medications and fluids Medical Decision Making Medical Decision Making [facility] Narrative: 34 yo female with PMH of UTI, idiopathic gastroparesis, chronic intermittent elevated WBC here with n/v/d typical flare and pain for gastroparesis at this time will obtain basic labs and give IV morphine for pain. Just had normal CT scan for same pain will defer - did send off ESR and CRP. Her WBC count is chronic and due to vomiting no infection or severe sepsis. Tachycardia due to pain and not infection or severe sepsis. Differential Diagnosis Differential Diagnoses: The differential diagnosis associated with the presentation includes gastroparesis, dehydration, colitis Admission/Observation Consideration of admission/observation: Escalation of care including admission/observation considered tolerating PO feels much better at this time stable for DC labs and CT scan no acute source Lab Data [facility] Lab Attestation statement: I reviewed the patient's lab results. 03/19/24 20:23 03/19/24 20:23 Labs: Lab Results 03/19/24 03/20/24 03/20/24 Range/Units 20:23 04:51 07:49 WBC 16.6 H (4.8-10.8) X10*3/uL RBC 4.92 (4.20-5.50) X10*6/uL Hgb 14.5 (12.0-16.0) g/dl Hct 42.3 (37.0-47.0) % MCV 86.0 (80.0-98.0) fL MCH 29.5 (27.0-33.0) pg MCHC 34.3 (31.0-35.0) g/dl RDW 12.9 (11.0-16.0) % Plt Count 458 H D (160-400) X10*3/uL MPV 9.3 L (9.4-12.3) fL Immature Gran % (Auto) 0.5 H (0.0-0.4) % Neut % (Auto) 70.1 (45-73) % Lymph % (Auto) 21.5 (20-40) % King % (Auto) 5.9 (2-11) % Eos % (Auto) 1.5 (0-4) % Baso % (Auto) 0.5 (0-2) % Lymph # (Auto) 3.6 (1.2-4.9) X10*3/uL King # (Auto) 1.0 (0.1-1.2) X10*3/uL Eos # (Auto) 0.3 (0.0-0.4) X10*3/uL Baso # (Auto) 0.1 (0.0-0.2) X10*3/uL Abs Immat Gran (auto) 0.08 H (0.00-0.03) X10*3/uL Absolute Neuts (auto) 11.7 H (2.0-8.3) x10*3/uL Absolute Nucleated RBC 0.000 (0.0-0.012) X10*3/uL Nucleated RBC % (auto) 0.0 (0.0-0.2) /100WBC ESR 14 (0-20) MM/HR Sodium 138 (135-145) mmol/L Potassium 4.1 (3.3-5.1) mmol/L Chloride 106 (96-108) mmol/L Carbon Dioxide 22 (22-29) mmol/L Anion Gap 14 (12-20) BUN 14 (9-16) mg/dL Creatinine 1.01 (0.5-1.4) mg/dL Estim Creat Clear Calc 67.3 Estimated GFR > 60 Random Glucose 171 H (60-115) mg/dL Calcium 9.9 D (8.4-10.2) mg/dL Magnesium 1.8 (1.6-2.6) mg/dL Total Bilirubin 0.2 (0.0-1.0) mg/dL AST 19 (5-31) U/L ALT 32 H (0-31) U/L Alkaline Phosphatase 76 (39-117) U/L C-Reactive Protein 0.50 (< or = 0.50) mg/dL Total Protein 8.6 H (6.5-8.0) g/dL Albumin 4.7 (3.5-5.0) g/dL Lipase 50 (8-78) U/L Urine Color Yellow Urine Appearance Cloudy Urine pH 5.5 (5.0-9.0) Ur Specific Aneta >= 1.030 H (1.005-1.025) Urine Protein Negative (Neg-Trace) mg/dL Urine Glucose (UA) 100 H (Negative) mg/dL Urine Ketones Negative (Negative) mg/dL Urine Blood Negative (Negative) Urine Nitrite Negative (Negative) Ur Leukocyte Esterase Negative (Negative) Urine Test NEGATIVE (NEGATIVE) Influenza Type A (PCR) NEGATIVE (Negative) Influenza Type B (PCR) NEGATIVE (Negative) RSV RNA Qual (PCR) NEGATIVE (Negative) SARS-CoV-2 RNA (RT-PCR) NEGATIVE (Negative) Independent Interpretation I performed an independent interpretation of an: CT Scan (epipolic appendagitis/ovarian cyst) Radiology Impression Discussion of test interpretation with radiology: I have reviewed the radiologist's reading. Independent Historian Clinical information obtained from an independent historian. History obtained from or confirmed by: Spouse External Record Review External record reviewed: Inpatient record Prescription Management I considered prescription management with: Pain Medication and Other Medications Administered Discontinued Medications Generic Name Dose Route Start Last Admin Trade Name Freq PRN Reason Stop Dose Admin Sodium Chloride 1,000 mls @ 999 mls/hr 03/20/24 04:23 03/20/24 06:00 Ns IV 03/20/24 05:23 Infused .Q1H1M ONE Infusion Morphine Sulfate 4 mg 03/20/24 04:23 03/20/24 04:56 Morphine Sulfate 4 Mg/Ml Cartridge IVPUSH 03/20/24 04:24 4 mg ONCE ONE Administration Protocol Morphine Sulfate 15 mg 03/20/24 09:18 03/20/24 09:25 Morphine Sulfate Immed Release 15 Mg Tablet PO 03/20/24 09:19 15 mg ONCE ONE Administration Ondansetron HCl 4 mg 03/20/24 04:24 03/20/24 04:56 Ondansetron Hcl 4 Mg/2 Ml Vial IVPUSH 03/20/24 04:25 4 mg ONCE ONE Administration Prochlorperazine Maleate 10 mg 03/20/24 09:18 03/20/24 09:25 Prochlorperazine Maleate 5 Mg Tablet PO 03/20/24 09:19 10 mg ONCE ONE Administration Discharge Plan Discharge Clinical Impression: Gastroparesis Patient Disposition: Home, Self-Care Instructions: Gastroparesis (ED) Additional Instructions: labs reassuring other than chronic WBC count today 16, neg inflammatory markers CT scan shows inflammation of fat around intestines but that is self limiting there was also small L ovarian cyst - follow up with OBGYN for repeat outpatient Ultrasound return for any worsening symtpoms or concerns CT/CT abdomen pelvis wo IV con IMPRESSION: Consider epiploic appendagitis, proximal to mid descending colon 3.7 cm cystic lesion, left adnexa. Small fat-containing umbilical hernia. Hepatomegaly. Prescriptions: New prochlorperazine maleate [Compazine] 10 mg tablet 10 mg PO Q8H PRN (Reason: nausea and vomiting) Qty: 20 0RF morphine 15 mg tablet 15 mg PO Q6H PRN (Reason: pain) Qty: 10 0RF Rx Instructions: partial fill okay; Partial Fill upon patient request. No Action bupropion HCl 150 mg tablet sustained-release 12 hr 150 mg PO BID Rybelsus 7 mg tablet 7 mg PO DAILY topiramate [Topamax] 100 mg tablet 100 mg PO DAILY levothyroxine 25 mcg capsule 12.5 mcg PO DAILY Print Language: Stateless
[2024-03-19 20:27] LABS: MANUAL DIFF FLAG NO
[2024-03-19 20:29] LABS: Basophils Absolute Auto 0.1 X10*3/uL (0.0-0.2); Basophils Percent Auto 0.5 % (0-2); Eosinophils Absolute Auto 0.3 X10*3/uL (0.0-0.4); Eosinophils Percent Auto 1.5 % (0-4); Hematocrit 42.3 % (37.0-47.0); Hemoglobin 14.5 g/dl (12.0-16.0); Imm Gran Abs Auto 0.08 X10*3/uL (0.00-0.03); Imm Gran Pct Auto 0.5 % (0.0-0.4); Lymphocytes Absolute Auto 3.6 X10*3/uL (1.2-4.9); Lymphocytes Percent Auto 21.5 % (20-40); Mean Corpuscular HGB Conc 34.3 g/dl (31.0-35.0); Mean Corpuscular Hemoglobin 29.5 pg (27.0-33.0); Mean Platelet Volume 9.3 fL (9.4-12.3); Monocytes Percent Auto 5.9 % (2-11); Neutrophils Absolute Auto 11.7 x10*3/uL (2.0-8.3); Neutrophils Percent Auto 70.1 % (45-73); Platelet Count 458 X10*3/uL (160-400); Red Blood Count 4.92 X10*6/uL (4.20-5.50); Red Cell Distribution Width 12.9 % (11.0-16.0); White Blood Count 16.6 X10*3/uL (4.8-10.8)
[2024-03-19 20:43] LABS: Alanine Aminotransferase 32 U/L (0-31); Albumin Level 4.7 g/dL (3.5-5.0); Alkaline Phosphatase 76 U/L (39-117); Anion Gap 14 (12-20); Aspartate Amino Transferase 19 U/L (5-31); Bilirubin Total 0.2 mg/dL (0.0-1.0); Blood Urea Nitrogen 14 mg/dL (9-16); Calcium 9.9 mg/dL (8.4-10.2); Carbon Dioxide 22 mmol/L (22-29); Chloride 106 mmol/L (96-108); Creatinine Clr Calc Pharmacy 67.3; Estimated Glomerular Filt Rate > 60; Glucose Random 171 mg/dL (60-115); Lipase 50 U/L (8-78); Magnesium 1.8 mg/dL (1.6-2.6); Potassium 4.1 mmol/L (3.3-5.1); Sodium 138 mmol/L (135-145); Total Protein 8.6 g/dL (6.5-8.0)
[2024-03-19 21:11] LABS: Influenza A PCR NEGATIVE (Negative); Influenza B PCR NEGATIVE (Negative); Resp Syncy Virus RNA Qual PCR NEGATIVE (Negative); SARS COV2 PCR INHOUSE NEGATIVE (Negative)
[2024-03-19 22:57] VITALS: BP 174/119; PULSE 111; RESP 20; TEMP 36.3; O2SAT 98
--- NOTE | 2024-03-20 | ECG_ITS ---
Test Reason : TACHYCARDIA Blood Pressure : / mmHG Vent. Rate : 093 BPM Atrial Rate : 093 BPM P-R Int : 142 ms QRS Dur : 070 ms QT Int : 362 ms P-R-T Axes : 027 012 016 degrees QTc Int : 450 ms Normal sinus rhythm Minimal voltage criteria for LVH, may be normal variant ( R in aVL ) Borderline ECG When compared with ECG of 08-MAR-2024 00:28, QRS axis Shifted left T wave inversion no longer evident in Lateral leads Referred By: Generic ED Physician Electronically Signed By:DA GEIGER MD
[2024-03-20 02:58] VITALS: BP 156/101; PULSE 108; RESP 16; TEMP 36.9; O2SAT 98
[2024-03-20 04:55] VITALS: BP 148/102; PULSE 96; RESP 15; TEMP 36.6; O2SAT 95
[2024-03-20] MEDS: ondansetron HCL 4 MG/2 ML VIAL IVPUSH (04:56)
[2024-03-20] MEDS: Morphine Sulfate 4 MG/ML CARTRIDGE IVPUSH (04:56)
[2024-03-20] MEDS: 0.9 % Sodium Chloride 1,000 ML 999 ML IV (04:58)
[2024-03-20 05:33] LABS: Erythrocyte Sedimentation Rate 14 MM/HR (0-20)
[2024-03-20 06:48] VITALS: BP 110/64; PULSE 84; RESP 15; TEMP 36.1; O2SAT 97
[2024-03-20 07:56] LABS: Appearance Urine Cloudy; Color Urine Yellow; Glucose Urine UA 100 mg/dL (Negative); Leukocyte Esterase Urine Negative (Negative); Nitrite Urine Negative (Negative); PH 5.5 (5.0-9.0); Specific Gravity - Urine >= 1.030 (1.005-1.025); Urine Blood Negative (Negative); Urine Ketones Negative (Negative); Urine Protein Negative (Neg-Trace)
[2024-03-20 07:58] LABS: UPreg QC Valid YES; Urine Pregnancy NEGATIVE (NEGATIVE)
[2024-03-20 08:55] VITALS: BP 127/65; PULSE 96; RESP 15; TEMP 36.6; O2SAT 96
[2024-03-20] MEDS: Morphine Sulfate Immed Release 15 MG TABLET PO (09:25)
[2024-03-20] MEDS: Prochlorperazine Maleate 5 MG TABLET 10 MG PO (09:25)
[2024-03-20 11:04] VITALS: BP 115/78; PULSE 82; RESP 16; TEMP 36.3; O2SAT 97
== END 2024-03-20 11:04 | disposition home or self-care (01) ==
PROVIDERS: Physician Assistant Medical; Emergency Provider Emergency Medicine; PCP Internal Medicine
DX: K31.84 Gastroparesis (principal); R11.2 Nausea with vomiting, unspecified; R00.0 Tachycardia, unspecified; Z03.818 Encounter for observation for suspected exposure to other biological agents ruled out; Z79.899 Other long term (current) drug therapy
CPT/HCPCS: 0241U; 36415; 74176; 80053; 81003; 81025; 83690; 83735; 85025; 85652; 86140; 93005; 96361; 96374; 96375; 99285; J2270; J2405

== ENCOUNTER → 2024-03-20 03:06 | Outpatient (BNV) | payer OTHER, SELFPAY | PROVIDERS: Emergency Provider Emergency Medicine; PCP Internal Medicine; Visit Provider Internal Medicine Cardiovascular Disease | DX: R00.0 Tachycardia, unspecified (principal); R94.31 Abnormal electrocardiogram [ECG] [EKG] | CPT/HCPCS: 93010 ==

== ENCOUNTER → 2024-03-20 05:45 | Outpatient (BNV) | payer OTHER, SELFPAY | PROVIDERS: Emergency Provider Emergency Medicine; PCP Internal Medicine; Visit Provider Radiology Diagnostic Radiology | DX: K31.84 Gastroparesis (principal) | CPT/HCPCS: 74176 ==

== ENCOUNTER 2024-03-20 17:44 | Inpatient (IN) | payer OTHER, SELFPAY ==
[2024-03-20 17:53] VITALS: BP 156/101; PULSE 93; RESP 18; TEMP 36.4; O2SAT 96; BMI 38.5
--- NOTE | 2024-03-20 17:54 | ED.NAVMDI ---
HPI - Nausea/Vomiting/Diarrhea General Chief complaint: Abdominal Pain Stated complaint: Vomiting/was seen here last night for same Time Seen by Provider: 03/21/24 00:36 Source: patient Mode of arrival: ambulatory Limitations: no limitations History of Present Illness ED Provider: DR. Silver HPI Narrative: 34-year-old female with history of idiopathic gastroparesis patient had multiple hospitalization, patient was seen in our emergency department yesterday was given fluid, and medication for vomiting felt better when she got home start to vomit return for intractable vomiting and inability to keep p.o. intake. Patient is complaining of abdominal pain had CT abdomen and pelvis which was unremarkable. Related Data Home Medications ?Medication ?Instructions ?Recorded ?Confirmed bupropion HCl 150 mg tablet,12 hr 150 mg PO BID 03/06/21 03/17/24 sustained-release levothyroxine 25 mcg capsule 12.5 mcg PO DAILY 07/30/23 03/17/24 topiramate 100 mg tablet (Topamax) 100 mg PO DAILY 07/30/23 03/17/24 semaglutide 7 mg tablet (Rybelsus) 7 mg PO DAILY 03/10/24 03/17/24 Previous Rx's ?Medication ?Instructions ?Recorded morphine 15 mg immediate release 15 mg PO Q6H PRN pain #10 tabs 03/20/24 tablet prochlorperazine maleate 10 mg 10 mg PO Q8H PRN nausea and 03/20/24 tablet (Compazine) vomiting #20 tabs Allergies Allergy/AdvReac Type Severity Reaction Status Date / Time influenza virus vaccine, Allergy Mild UNKNOWN Verified 03/20/24 17:55 specific [FLU VACCINE] doxycycline [DOXYCYCLINE] Allergy Unknown SWELLING Verified 03/20/24 17:55 vancomycin [VANCOMYCIN] Allergy Unknown ANAPHYLAXIS Verified 03/20/24 17:55 metoclopramide [From Reglan] Allergy Unknown Verified 03/20/24 17:55 shellfish Allergy Mild Swelling Uncoded 03/17/24 09:13 Review of Systems Review of Systems: All other systems are reviewed and are negative Constitutional: Reports as per HPI and Reports no additional constitutional complaints Eyes: Reports as per HPI and Reports no additional eye complaints Reports system reviewed and no additional complaints, except as documented Cardiovascular: Reports as per HPI and Reports no additional cardiovascular complaints Respiratory: Reports as per HPI and Reports no additional respiratory complaints Gastrointestinal: Reports as per HPI and Reports no additional gastrointestinal complaints Genitourinary: Reports no additional female genitourinary complaints Musculoskeletal: Reports no additional musculoskeletal complaints Skin/Breast: Reports system reviewed and no additional complaints, except as docu Psychiatric: Reports no additional psychiatric complaints Endocrine: Reports no additional endocrine complaints Hematologic/Lymphatic: Reports no additional hematologic/lymphatic complaints Allergic/Immunologic: Reports no additional allergic/immunologic complaints Reports system reviewed and no additional complaints, except as documented and Reports Abnormal speech present [facility] Past Medical History Medical History Cholecystectomy planned Pre-diabetes Lyme disease Osteoarthritis PCOS (polycystic ovarian syndrome) Gastroparesis Surgical History History of cholecystectomy H/O partial thyroidectomy Family History Family History Maternal Aunt Breast cancer Social History Social History Unable to assess alcohol history related to: Unknown Alcohol intake: never Patient Tobacco Use Status: Never used Tobacco Patient : No Current occupational status: employed Physical Exam Vital Signs: Vital Signs: Last Vital Signs Temp 98.0 F 03/21/24 00:19 Pulse 96 03/21/24 00:19 Resp 18 03/21/24 00:19 BP 150/106 H 03/21/24 00:19 Pulse Ox 97 03/21/24 00:19 O2 Del Method Room Air 03/21/24 00:19 BMI result Body Mass Index 38.5 Vital signs have been reviewed and appear to be correct. Blood pressure elevated. Heart rate normal. Respiratory rate normal. Temperature normal. Oxygen saturation normal. Appearance: Alert. Oriented X3. No acute distress. Head: Normal external exam. Normocephalic. Atraumatic. No Choi signs noted. No raccoon eyes noted Eyes: PERRLA. EOMI. Conjunctiva and sclera normal. Eyelids normal. ENT: TM's Normal. Pharynx normal. Uvula midline. Moist mucous membranes. No trismus noted. No drooling noted. No muffled voice noted. Neck: Normal inspection. Neck supple. FROM. No adenopathy. Thyroid Normal. No meningeal signs. No neck mass noted. CVS: Normal heart rate and rhythm. Heart sound normal. No murmurs noted. Pulses normal throughout. Respiratory: No respiratory distress. Painless inspiration. Breath sounds normal. No wheezes/rales/rhonchi noted. Chest nontender. No accessory muscle usage noted or decreased air movement noted. Abdomen: Soft and nontender. Bowel sounds normal in all 4 quadrants. No distention noted. No organomegaly noted. No visible injury noted. Back: No CVA tenderness. Full range of motion noted. Skin: Skin warm and dry. Normal skin color. Normal skin turgor. No rashes/lesions/lacerations noted. Extremities: No lower extremity edema. Extremities exhibit normal range of motion. Extremities nontender. Neuro: Oriented X 3. Cranial nerve exam: II-XII are grossly intact No motor deficit. No sensory deficit. Reflexes normal. Course Course Course Narrative: This is an RME: Additional HPI, ROS, PE not included below will be deferred to primary provider. RME assessment and note performed by: Tamiko Tipton PA-C This is a 34 y/o F, PMH of UTI, idiopathic gastroparesis, chronic intermittent elevated WBC who reports she has been in gastroparesis flare for almost 2 weeks, here with c/o ongoing nausea, and abdominal pain. She has been unable to tolerate sips of water, increased abdominal pain, nausea and vomiting. Plan: labs Reevaluation(s) Reevaluation #1: Intractable vomiting secondary to idiopathic gastroparesis, had abdomen CT yesterday which was unremarkable, labs are unremarkable. Will admit the patient for IV hydration, IV vomiting medication. Time: 01:02 Medications Administered Discontinued Medications Generic Name Dose Route Start Last Admin Trade Name Freq PRN Reason Stop Dose Admin Ondansetron HCl 4 mg 03/20/24 21:25 03/20/24 21:28 Ondansetron Odt 4 Mg Tab.Rapdis SUBLINGUAL 03/20/24 21:26 4 mg ONCE ONE Administration Medical Decision Making Differential Diagnosis Differential Diagnoses: The differential diagnosis associated with the presentation includes (Dehydration, electrolyte derangement, severe anemia, intractable vomiting.) Admission/Observation Consideration of admission/observation: Escalation of care including admission/observation considered Consult Healthcare Provider Management of the patient was discussed with: Hospitalist (Greg) Lab Data MDM Lab Attestation statement: I reviewed the patient's lab results. 11/07/24 18:25 03/20/24 18:25 Labs: Lab Results 03/20/24 Range/Units 18:25 WBC 9.1 (4.8-10.8) X10*3/uL RBC 4.37 (4.20-5.50) X10*6/uL Hgb 12.8 (12.0-16.0) g/dl Hct 37.4 (37.0-47.0) % MCV 85.6 (80.0-98.0) fL MCH 29.3 (27.0-33.0) pg MCHC 34.2 (31.0-35.0) g/dl RDW 13.0 (11.0-16.0) % Plt Count 396 (160-400) X10*3/uL MPV 9.6 (9.4-12.3) fL Immature Gran % (Auto) 0.3 (0.0-0.4) % Neut % (Auto) 63.9 (45-73) % Lymph % (Auto) 28.1 (20-40) % [place] % (Auto) 5.5 (2-11) % Eos % (Auto) 1.8 (0-4) % Baso % (Auto) 0.4 (0-2) % Lymph # (Auto) 2.6 (1.2-4.9) X10*3/uL [place] # (Auto) 0.5 (0.1-1.2) X10*3/uL Eos # (Auto) 0.2 (0.0-0.4) X10*3/uL Baso # (Auto) 0.0 (0.0-0.2) X10*3/uL Abs Immat Gran (auto) 0.03 (0.00-0.03) X10*3/uL Absolute Neuts (auto) 5.8 (2.0-8.3) x10*3/uL Absolute Nucleated RBC 0.000 (0.0-0.012) X10*3/uL Nucleated RBC % (auto) 0.0 (0.0-0.2) /100WBC Sodium 138 (135-145) mmol/L Potassium 3.5 (3.3-5.1) mmol/L Chloride 110 H (96-108) mmol/L Carbon Dioxide 20 L (22-29) mmol/L Anion Gap 12 (12-20) BUN 14 (9-16) mg/dL Creatinine 0.77 (0.5-1.4) mg/dL Estim Creat Clear Calc 89.3 Estimated GFR > 60 Random Glucose 177 H (60-115) mg/dL Calcium 8.2 L D (8.4-10.2) mg/dL Magnesium 1.8 (1.6-2.6) mg/dL Total Bilirubin 0.4 (0.0-1.0) mg/dL Direct Bilirubin 0.1 (0.0-0.5) mg/dL AST 22 (5-31) U/L ALT 26 (0-31) U/L Alkaline Phosphatase 59 (39-117) U/L Total Protein 7.0 (6.5-8.0) g/dL Albumin 3.9 (3.5-5.0) g/dL Lipase 36 (8-78) U/L Discharge Plan Discharge Clinical Impression: Intractable vomiting, Gastroparesis Patient Disposition: Admitted As Inpatient Prescriptions: No Action bupropion HCl 150 mg tablet sustained-release 12 hr 150 mg PO BID prochlorperazine maleate [Compazine] 10 mg tablet 10 mg PO Q8H PRN (Reason: nausea and vomiting) Qty: 20 0RF morphine 15 mg tablet 15 mg PO Q6H PRN (Reason: pain) Qty: 10 0RF Rx Instructions: partial fill okay; Partial Fill upon patient request. Rybelsus 7 mg tablet 7 mg PO DAILY topiramate [Topamax] 100 mg tablet 100 mg PO DAILY levothyroxine 25 mcg capsule 12.5 mcg PO DAILY Print Language: Trinidadian
[2024-03-20 18:34] LABS: MANUAL DIFF FLAG NO
[2024-03-20 18:46] LABS: Basophils Percent Auto 0.4 % (0-2); Eosinophils Absolute Auto 0.2 X10*3/uL (0.0-0.4); Eosinophils Percent Auto 1.8 % (0-4); Hematocrit 37.4 % (37.0-47.0); Hemoglobin 12.8 g/dl (12.0-16.0); Imm Gran Abs Auto 0.03 X10*3/uL (0.00-0.03); Imm Gran Pct Auto 0.3 % (0.0-0.4); Lymphocytes Absolute Auto 2.6 X10*3/uL (1.2-4.9); Lymphocytes Percent Auto 28.1 % (20-40); Mean Corpuscular HGB Conc 34.2 g/dl (31.0-35.0); Mean Corpuscular Hemoglobin 29.3 pg (27.0-33.0); Mean Corpuscular Volume 85.6 fL (80.0-98.0); Mean Platelet Volume 9.6 fL (9.4-12.3); Monocytes Absolute Auto 0.5 X10*3/uL (0.1-1.2); Monocytes Percent Auto 5.5 % (2-11); Neutrophils Absolute Auto 5.8 x10*3/uL (2.0-8.3); Neutrophils Percent Auto 63.9 % (45-73); Platelet Count 396 X10*3/uL (160-400); Red Blood Count 4.37 X10*6/uL (4.20-5.50); White Blood Count 9.1 X10*3/uL (4.8-10.8)
[2024-03-20 19:01] LABS: Alanine Aminotransferase 26 U/L (0-31); Albumin Level 3.9 g/dL (3.5-5.0); Alkaline Phosphatase 59 U/L (39-117); Anion Gap 12 (12-20); Aspartate Amino Transferase 22 U/L (5-31); Bilirubin Direct 0.1 mg/dL (0.0-0.5); Bilirubin Total 0.4 mg/dL (0.0-1.0); Blood Urea Nitrogen 14 mg/dL (9-16); Calcium 8.2 mg/dL (8.4-10.2); Carbon Dioxide 20 mmol/L (22-29); Chloride 110 mmol/L (96-108); Creatinine Clr Calc Pharmacy 89.3; Estimated Glomerular Filt Rate > 60; Glucose Random 177 mg/dL (60-115); Lipase 36 U/L (8-78); Magnesium 1.8 mg/dL (1.6-2.6); Potassium 3.5 mmol/L (3.3-5.1); Sodium 138 mmol/L (135-145)
[2024-03-20 21:26] VITALS: BP 139/100; PULSE 96; RESP 16; TEMP 36.6; O2SAT 98
[2024-03-20] MEDS: Ondansetron ODT 4 MG TAB.RAPDIS SUBLINGUAL (21:28)
[2024-03-21 00:19] VITALS: BP 150/106; PULSE 96; RESP 18; TEMP 36.7; O2SAT 97
[2024-03-21] MEDS: ondansetron HCL 4 MG/2 ML VIAL IVPUSH ×4 (01:14→19:59)
[2024-03-21] MEDS: 0.9 % Sodium Chloride 1,000 ML 999 ML IV (01:14)
[2024-03-21] MEDS: Morphine Sulfate 2 MG/ML CARTRIDGE 1 MG IVPUSH ×3 (01:14→19:59)
--- NOTE | 2024-03-21 01:22 | P.HPHOSP_ITS ---
History of Present Illness Date of Service: 03/21/24 Chief Complaint: intractable nausea and vomiting A 34 years old lady with Hx of idiopathic gastroparesis diagnosed in [place] 6 years ago presenting with intractable nausea and vomiting for a week now. The patient [place] [facility] [place]. [place] [facility] [place] and had IVF and nausea medicaitions with mild improvement but could not keep anything down at home with recurrent N&V. when i went in she was vomiting. she has infrequent episodes but usually her symptoms under control. no clear reason why did it start this time. To be admitted for monitoring until she can tolerates PO. Review of Systems 2 Review of Systems: No fever, chills or weakness No chest pain, palpitation No shortness of breath or coughing No abdominal pain but has nausea or vomiting No urinary symptoms No any rash PMFSH Medical History Cholecystectomy planned Pre-diabetes Lyme disease Osteoarthritis PCOS (polycystic ovarian syndrome) Gastroparesis Family History Maternal Aunt Breast cancer Surgical History History of cholecystectomy H/O partial thyroidectomy Social History Unable to assess alcohol history related to: Unknown Alcohol intake: never Patient Tobacco Use Status: Never used Tobacco Advance Directives: No Advance Directives Information Provided: No Patient : No Current occupational status: employed Meds Allergies Allergy/AdvReac Type Severity Reaction Status Date / Time influenza virus vaccine, Allergy Mild UNKNOWN Verified 03/20/24 17:55 specific [FLU VACCINE] doxycycline [DOXYCYCLINE] Allergy Unknown SWELLING Verified 03/20/24 17:55 vancomycin [VANCOMYCIN] Allergy Unknown ANAPHYLAXIS Verified 03/20/24 17:55 metoclopramide [From Reglan] Allergy Unknown Verified 03/20/24 17:55 shellfish Allergy Mild Swelling Uncoded 03/17/24 09:13 Active Medications: Current Medications Sodium Chloride (Ns) 1,000 mls @ 999 mls/hr IV .Q1H1M ONE Stop: 03/21/24 01:44 Last Admin: 03/21/24 01:14 Dose: 999 mls/hr Home Medications ?Medication ?Instructions ?Recorded ?Confirmed ?Last Taken ?Type bupropion HCl 150 mg tablet,12 hr 150 mg PO BID 03/06/21 03/17/24 Unknown History sustained-release levothyroxine 25 mcg capsule 12.5 mcg PO DAILY 07/30/23 03/17/24 Unknown History topiramate 100 mg tablet (Topamax) 100 mg PO DAILY 07/30/23 03/17/24 Unknown History semaglutide 7 mg tablet (Rybelsus) 7 mg PO DAILY 03/10/24 03/17/24 Unknown History Physical Exam 2 Vital Signs and Narrative: Vital Signs: Last Vital Signs Temp 98.0 F 03/21/24 00:19 Pulse 96 03/21/24 00:19 Resp 18 03/21/24 00:19 BP 150/106 H 03/21/24 00:19 Pulse Ox 97 03/21/24 00:19 O2 Del Method Room Air 03/21/24 00:19 BMI result Body Mass Index 38.5 Const: Other: Constitutional : Awake, interactive, not in distress Neck : Normal inspection, Supple Cardiovascular : RRR, no JVP, no lower extremity edema Respiratory : good bilateral air entry, no crackles, wheezes or rhonchi Gastrointestinal: soft, lax, Normal bowel sounds, Non tender Skin : Warm, Dry Neurological : Alert & oriented x3, No focal deficit Results Labs 03/20/24 18:25 03/20/24 18:25 Labs: Laboratory Results - last 24 hr 03/20/24 18:25 MCV 85.6 MCH 29.3 MCHC 34.2 RDW 13.0 Plt Count 396 MPV 9.6 Immature Gran % (Auto) 0.3 Neut % (Auto) 63.9 Lymph % (Auto) 28.1 [place] % (Auto) 5.5 Eos % (Auto) 1.8 Baso % (Auto) 0.4 Lymph # (Auto) 2.6 [place] # (Auto) 0.5 Eos # (Auto) 0.2 Baso # (Auto) 0.0 Abs Immat Gran (auto) 0.03 Absolute Neuts (auto) 5.8 Absolute Nucleated RBC 0.000 Nucleated RBC % (auto) 0.0 Anion Gap 12 Estim Creat Clear Calc 89.3 Estimated GFR > 60 Random Glucose 177 H Calcium 8.2 L D Magnesium 1.8 Total Bilirubin 0.4 Direct Bilirubin 0.1 AST 22 ALT 26 Alkaline Phosphatase 59 Total Protein 7.0 Albumin 3.9 Lipase 36 Assessment and Plan (1) Gastroparesis: Status: Acute (2) Intractable vomiting: Status: Acute Plan A 34 years old lady with Hx of idiopathic gastroparesis diagnosed in [place] 6 years ago presenting with intractable nausea and vomiting for a week now. Intractable nausea and vomiting 2/2 Gastroparesis can not tolerate Reglan or Benadryl IVF for now Zofran and Compazine PRN GI eval NPO , advance as toelrated Pending Med rec for rest of her problems DVT PPx Lovenox Quality Stroke Does the patient have a stroke diagnosis?: No VTE Prior VTE?: No VTE Risk Level:: Medical - moderate - high VTE Device Contraindication: Treatment Not Indicated VTE Drug Contraindication: N/A - Med Ordered
[2024-03-21 02:03] VITALS: BP 131/94; PULSE 90; RESP 16; O2SAT 97
--- NOTE | 2024-03-21 02:04 | PC.NURSE ---
report to Bertha ORTIZ. Pt to go to the pod. Pt states, nausea and pain is better
--- NOTE | 2024-03-21 02:25 | MHC.EDTECH ---
This tech took over care of patient at this time,pt brought from the main ED to overflow,patient placed in hospital bed at this time,pt appears comfortable,call ku in reach
[2024-03-21] MEDS: Prochlorperazine Edisylate 10 MG/2 ML VIAL 5 MG IVPUSH (04:46)
[2024-03-21] MEDS: Dextrose 5 % and 0.9 % NaCl 1,000 ML 100 ML IVCONT ×2 (04:50→14:42)
[2024-03-21 05:04] LABS: Anion Gap 14 (12-20); Blood Urea Nitrogen 13 mg/dL (9-16); Calcium 7.9 mg/dL (8.4-10.2); Carbon Dioxide 18 mmol/L (22-29); Chloride 112 mmol/L (96-108); Creatinine Clr Calc Pharmacy 85.9; Estimated Glomerular Filt Rate > 60; Glucose Random 165 mg/dL (60-115); Potassium 3.9 mmol/L (3.3-5.1); Sodium 140 mmol/L (135-145)
[2024-03-21 05:37] VITALS: BP 148/86; PULSE 87; RESP 18; TEMP 36.7; O2SAT 97
--- NOTE | 2024-03-21 05:39 | MHC.EDTECH ---
Hourly rounds and vitals completed,patient ambulated to the bathroom with a steady gait
--- NOTE | 2024-03-21 08:06 | PHA.MEDREC ---
Addendum entered by Tamar Mejia RPh 03/21/24 08:52: reviewed by [facility]. Original Note: Pharmacy Consult ? Medication Reconciliation Pharmacy has completed the medication reconciliation. Confirmed medications with patient. Patient confirmed her Bupropion HCL 150mg tab is taken once daily. She confirmed her Levothyroxine 25mcg tab and states she takes a half tab once daily. She stated she never ended up starting or got the Compazine 10mg tab. She confirmed she has not taken her medications in 3 days.
[2024-03-21 08:43] LABS: Estimated Average Glucose 194 mg/dL; Hemoglobin A1C 218.2741 umol/L; Hemoglobin A1c % 8.4 % (<6.0); Total Hemoglobin (HGBA1C) 3174.0791 umol/L
[2024-03-21 08:57] VITALS: BP 157/88; PULSE 101; RESP 18; TEMP 36.6; O2SAT 96
[2024-03-21] MEDS: Levothyroxine Sodium 25 MCG TABLET 12.5 MCG PO (09:02)
[2024-03-21] MEDS: 0.9 % Sodium Chloride Flush 3 ML SYRINGE IVFLUSH (09:02)
--- NOTE | 2024-03-21 09:26 | P.CNGI_ITS ---
History of Present Illness Data of Consult Service Date: 03/21/24 Requesting physician: Martinez Garza Primary Care Provider: Juan Chou MD HPI Reason for consult: N/V, hx of gastroparesis 34 year female who carries a dx of idiopathic gastroparesis diagnosed in [place] 6 years ago presented to the ER with intractable nausea and vomiting. This is her 3rd ER visit within a month for similar sx. Reports sudden to subacute onset of abd bloating with nausea and multiple episodes of vomiting with inability to tolerate PO. Reports being diagnosed in [facility] on the basis of GES. Has had a few EGD/colo since then. Prev meds trialed include domperidone and reglan which both had to be discontinued due to facial EPS. She has also tried oral erythromycin for a brief time. Reports meeting with a dietitician at that time and had modified to liquids with low fiber. However then moved here to [facility] almost 4 years ago. Was being followed at [facility] and [facility] briefly but discontinued follow up due to disagreement on management strategy. Labs reviewed - new dx of DM for pt. Noted to be on oral semaglutide but pt reports taking that for weight loss. Had pre-diabetes at the time of gastroparesis diagnosis. Pt also has hypothyroidism. Of note IgE noted to be elevated from 2022. Imaging reviewed question of epiploic appendagitis raised but pt without significant abd pain. [facility] Past Medical History Medical History Cholecystectomy planned Pre-diabetes Lyme disease Osteoarthritis PCOS (polycystic ovarian syndrome) Gastroparesis Family History Family History Maternal Aunt Breast cancer Surgical History Surgical History History of cholecystectomy H/O partial thyroidectomy Social History Social History Household Members: Other Housing: House Do you presently have visiting nurse or other home services: No Unable to assess alcohol history related to: Unknown Alcohol intake: never Patient Tobacco Use Status: Never used Tobacco Second Hand Smoke Exposure: No service: No Current occupational status: employed Meds Allergies Allergy/AdvReac Type Severity Reaction Status Date / Time influenza virus vaccine, Allergy Mild UNKNOWN Verified 03/20/24 17:55 specific [FLU VACCINE] doxycycline [DOXYCYCLINE] Allergy Unknown SWELLING Verified 03/20/24 17:55 vancomycin [VANCOMYCIN] Allergy Unknown ANAPHYLAXIS Verified 03/20/24 17:55 metoclopramide [From Reglan] Allergy Unknown Verified 03/20/24 17:55 shellfish Allergy Mild Swelling Uncoded 03/17/24 09:13 Active Medications: Current Medications Acetaminophen (Acetaminophen 325 Mg Tablet) 650 mg PO Q6H PRN PRN Reason: Pain, Mild (Pain Scale 1-3), fever or headache Calcium Carbonate (Calcium Carbonate 750 Mg Tab.Chew) 750 mg PO Q4H PRN PRN Reason: Heartburn Dextrose/Sodium Chloride (D5ns) 1,000 mls @ 100 mls/hr IVCONT .Q10H [facility] Last Admin: 03/21/24 04:50 Dose: 100 mls/hr Ketorolac Tromethamine (Ketorolac Tromethamine 15 Mg/Ml Vial) 15 mg IVPUSH Q6H PRN PRN Reason: Pain, Moderate(Pain Scale 4-6) Levothyroxine Sodium (Levothyroxine Sodium 25 Mcg Tablet) 12.5 mcg PO DAILY@0600 [facility] Last Admin: 03/21/24 09:02 Dose: 12.5 mcg Magnesium Hydroxide (Milk Of Magnesia 30 Ml Oral.Susp) 30 ml PO DAILY PRN PRN Reason: Constipation Melatonin (Melatonin 3 Mg Tablet) 6 mg PO BEDTIME PRN PRN Reason: Insomnia Morphine Sulfate (Morphine Sulfate 2 Mg/Ml Cartridge) 1 mg IVPUSH Q4H PRN; Protocol PRN Reason: Pain, Severe (Pain Scale 7-10) Last Admin: 03/21/24 05:26 Dose: 1 mg Non-Formulary Medication (Bupropion Hcl) 150 mg PO DAILY [facility] Ondansetron HCl (Ondansetron Hcl 4 Mg/2 Ml Vial) 4 mg IVPUSH Q8H PRN PRN Reason: Nausea and Vomiting Last Admin: 03/21/24 09:01 Dose: 4 mg Prochlorperazine Edisylate (Prochlorperazine Edisylate 10 Mg/2 Ml Vial) 5 mg IVPUSH Q6H PRN PRN Reason: Nausea and Vomiting Last Admin: 03/21/24 04:46 Dose: 5 mg Sodium Chloride (0.9 % Sodium Chloride Flush 3 Ml Syringe) 3 ml IVFLUSH QSHIFT [facility] Last Admin: 03/21/24 09:02 Dose: 3 ml Topiramate (Topiramate 100 Mg Tablet) 100 mg PO DAILY [facility] Home Medications ?Medication ?Instructions ?Recorded ?Confirmed ?Last Taken ?Type bupropion HCl 150 mg tablet,12 hr 150 mg PO DAILY 03/06/21 03/21/24 03/18/24 History sustained-release levothyroxine 25 mcg capsule 12.5 mcg PO DAILY@0600 07/30/23 03/21/24 03/18/24 History topiramate 100 mg tablet (Topamax) 100 mg PO DAILY 07/30/23 03/21/24 03/18/24 History semaglutide 7 mg tablet (Rybelsus) 7 mg PO DAILY 03/10/24 03/21/24 03/18/24 History Physical Exam 2 Vital Signs: Vital Signs: Last Vital Signs Temp 97.8 F 03/21/24 08:57 Pulse 101 H 03/21/24 08:57 Resp 18 03/21/24 08:57 BP 157/88 H 03/21/24 08:57 Pulse Ox 96 03/21/24 08:57 O2 Del Method Room Air 03/21/24 08:57 BMI result Body Mass Index 38.5 cushingoid features with central obesity and thin extremities nonicteric abd soft, nontender, striae noted no resp distress No ALENA Results Labs 03/20/24 18:25 03/21/24 04:25 Labs: Short CBC 03/20/24 Range/Units 18:25 WBC 9.1 (4.8-10.8) X10*3/uL Hgb 12.8 (12.0-16.0) g/dl Hct 37.4 (37.0-47.0) % Plt Count 396 (160-400) X10*3/uL BMP 03/20/24 03/21/24 18:25 04:25 Sodium 138 140 Potassium 3.5 3.9 Chloride 110 H 112 H Carbon Dioxide 20 L 18 L BUN 14 13 Creatinine 0.77 0.80 Calcium 8.2 L D 7.9 L Liver Function 03/20/24 Range/Units 18:25 Total Bilirubin 0.4 (0.0-1.0) mg/dL Direct Bilirubin 0.1 (0.0-0.5) mg/dL AST 22 (5-31) U/L ALT 26 (0-31) U/L Alkaline Phosphatase 59 (39-117) U/L Albumin 3.9 (3.5-5.0) g/dL Assessment and Plan (1) Gastroparesis: Status: Acute (2) Intractable vomiting: Status: Acute (3) Cushingoid facies: Status: Acute Plan Ddx for recent flare up of abd bloating N,V include adverse effects from semaglutide, vs gastroparesis vs CVS vs CHS vs infectious gastroenteritis. Plan: - NPO or clears if tolerated - Ultimately advance to low fiber, low fat diet - Head Waiter eval while pt is here - Avoid zofran and opiate that may exacerbate delayed gastric emptying - Obtain baseline EKG. Check K and Mag. - If QTc, K and Mg normal, start IV erythromycin 250 TID x 3 days - For break through nausea/vomiting, can use reglan 5 mg liquid up to twice a day during day time. Utilize liquid phenergan 25mg at night time. - Avoid opiates as above. Can give low dose tramadol for short term relief. Pt counseled that as gastric emptying improves, pain should resolve - Strong glycemic control - Pt was counseled that given her young age and prev hx of side effect to care home pharmacological therapy, mainstay of management after acute tx will be diet and lifestyle modification - Consider discontinuation of PO semaglutide - Cushingoid features noted on exam and she was also encouraged to discuss hypercortisolism testing with her science consultant - Outpatient follow up shall be arranged as per pt's request Thank you for allowing me to participate in her care. Please do not hesitate to reach out for questions or concerns. Procedures Date of Service Date of Service: 03/21/24
[2024-03-21] MEDS: Topiramate 100 MG TABLET PO (10:21)
[2024-03-21] MEDS: buPROPion HCl XL 150 MG TAB.ER.24H PO (10:21)
[2024-03-21] MEDS: Ketorolac Tromethamine 15 MG/ML VIAL IVPUSH (10:22)
--- NOTE | 2024-03-21 12:21 | PM.EVENT ---
Event Note Date of Service: 03/21/24 Event Note: Day hospitalist update S: c/o nausea + bilious vomiting O: Temp Pulse Resp BP Pulse Ox O2 Del Method 97.8 F 101 H 18 157/88 H 96 Room Air 03/21/24 08:57 03/21/24 08:57 03/21/24 08:57 03/21/24 08:57 03/21/24 08:57 03/21/24 08:57 Gen: in no acute distress HEENT: sclera anicteric, moist mucus membranes Neck: supple Lungs: clear to auscultation bilaterally Heart: regular rate and rhythm, no murmurs Abd: soft, non-tender, non-distended Ext: no edema Skin: warm/well-perfused Neuro: alert and oriented x3, no focal findings Psych: appropriate affect Labs: A1c 8.4 A/P: d1 34yo F with idiopathic gastroparesis diagnosed 5 yr ago presenting with intractable nausea + vomiting gastroparesis - NPO, IV fluids, antiemetics, GI consult. Stop semaglutide which was recently started for weight loss but may provoke gastroparesis. DM2, new-onset - A1c 8.4. Pt states no prior hx DM; will need MTF upon discharge mood disorder - bupropion, topiramate hypothyroidism - continue LT4 VTE ppx - SCDs dispo - home eventually In my clinical judgment, the patient requires continued inpatient hospitalization for the following reasons: IV fluids, GI consultation Time Spent With Patient Time: Total time managing care of this patient today ____ minutes.
--- NOTE | 2024-03-21 12:32 | MHC.CM.PN ---
PT LIVES WITH PARENTS IS INDEPENDENT AND WORKING HAS OWN RIDE HOME DC PLAN HOME NO SERVIES
[2024-03-21 13:15] LABS: Glucose, Whole Blood 193 mg/dL (60-115)
[2024-03-21 13:29] VITALS: BMI 38.7
[2024-03-21 13:31] VITALS: BP 134/87; PULSE 85; RESP 16; TEMP 36.3; O2SAT 95
[2024-03-21 16:12] LABS: Glucose, Whole Blood 172 mg/dL (60-115)
[2024-03-21 19:29] VITALS: BP 153/84; PULSE 87; RESP 16; TEMP 36.1; O2SAT 99
[2024-03-21 20:23] LABS: Glucose, Whole Blood 163 mg/dL (60-115)
[2024-03-21] MEDS: Insulin Lispro 100 UNIT/ML 3 ML VIAL SUBCUT (21:08)
[2024-03-22] MEDS: Dextrose 5 % and 0.9 % NaCl 1,000 ML 100 ML IVCONT (00:20)
[2024-03-22] MEDS: 0.9 % Sodium Chloride Flush 3 ML SYRINGE IVFLUSH ×2 (00:21→23:45)
[2024-03-22 03:35] VITALS: BP 125/76; PULSE 84; RESP 17; TEMP 36.2; O2SAT 97
[2024-03-22] MEDS: ondansetron HCL 4 MG/2 ML VIAL IVPUSH (04:38)
[2024-03-22] MEDS: Ketorolac Tromethamine 15 MG/ML VIAL IVPUSH (04:38)
[2024-03-22] MEDS: Levothyroxine Sodium 25 MCG TABLET 12.5 MCG PO (05:49)
[2024-03-22 06:40] LABS: Anion Gap 13 (12-20); Blood Urea Nitrogen 6 mg/dL (9-16); Carbon Dioxide 15 mmol/L (22-29); Chloride 117 mmol/L (96-108); Creatinine Clr Calc Pharmacy 86.1; Estimated Glomerular Filt Rate > 60; Glucose Random 194 mg/dL (60-115); Sodium 141 mmol/L (135-145)
[2024-03-22 07:24] LABS: Glucose, Whole Blood 185 mg/dL (60-115)
[2024-03-22] MEDS: Insulin Lispro 100 UNIT/ML 3 ML VIAL SUBCUT (07:49)
[2024-03-22] MEDS: Topiramate 100 MG TABLET PO (07:50)
[2024-03-22] MEDS: buPROPion HCl XL 150 MG TAB.ER.24H PO (07:50)
[2024-03-22 07:52] VITALS: BP 139/86; PULSE 85; RESP 18; TEMP 36.7; O2SAT 98
[2024-03-22 11:04] LABS: Glucose, Whole Blood 128 mg/dL (60-115)
--- NOTE | 2024-03-22 13:22 | HO.PM.IMPN ---
Subjective Subjective Date of Service: 03/22/24 Interval History: Being followed for intractable nausea and vomiting. Feeling better complaining of mild nausea wishes to try soft diet, denies fever, no chills, no headache, no lightheadedness, no dizziness, no abdominal pain or diarrhea., no other acute events overnight. Review of Systems All other system reviewed and are negative Physical Exam Vital Signs: Vital Signs: Last Vital Signs Temp 98.1 F 03/22/24 07:52 Pulse 85 03/22/24 07:52 Resp 18 03/22/24 07:52 BP 139/86 03/22/24 07:52 Pulse Ox 98 03/22/24 07:52 O2 Del Method Room Air 03/22/24 07:52 BMI result Body Mass Index 38.7 Const: Other: Gen: Awake alert x3, in no acute distress HEENT: sclera anicteric, moist mucus membranes Neck: supple Lungs: clear to auscultation bilaterally Heart: regular rate and rhythm, no murmurs Abd: soft, non-tender, non-distended, bowel sounds audible Ext: no edema Skin: warm/well-perfused Neuro: no focal findings Psych: appropriate affect Objective Data Active Medications Acetaminophen (Acetaminophen 325 Mg Tablet) 650 mg PO Q6H PRN PRN Reason: Pain, Mild (Pain Scale 1-3), fever or headache Bupropion HCl (Bupropion Hcl Xl 150 Mg Tab.Er.24h) 150 mg PO DAILY [facility] Last Admin: 03/22/24 07:50 Dose: 150 mg Documented By: SOFIA Calcium Carbonate (Calcium Carbonate 750 Mg Tab.Chew) 750 mg PO Q4H PRN PRN Reason: Heartburn Glucose (Glucose Gel 15 Gm Gel..Gram.) 15 gm PO Q15M PRN; Protocol PRN Reason: per Hypoglycemia Standing Ord. Dextrose (D10) 250 mls @ 750 mls/hr IV Q15M PRN; Protocol PRN Reason: per Hypoglycemia Standing Ord. Insulin Human Lispro (Insulin Lispro 100 Unit/Ml 3 Ml Vial) 0 unit SUBCUT QIDACHS [facility]; Protocol Last Admin: 03/22/24 12:47 Dose: Not Given Documented By: SOFIA Non-Admin Reason: No Insulin Coverage Ketorolac Tromethamine (Ketorolac Tromethamine 15 Mg/Ml Vial) 15 mg IVPUSH Q6H PRN PRN Reason: Pain, Moderate(Pain Scale 4-6) Last Admin: 03/22/24 04:38 Dose: 15 mg Documented By: RADHA Levothyroxine Sodium (Levothyroxine Sodium 25 Mcg Tablet) 12.5 mcg PO DAILY@0600 [facility] Last Admin: 03/22/24 05:49 Dose: 12.5 mcg Documented By: RADHA Magnesium Hydroxide (Milk Of Magnesia 30 Ml Oral.Susp) 30 ml PO DAILY PRN PRN Reason: Constipation Melatonin (Melatonin 3 Mg Tablet) 6 mg PO BEDTIME PRN PRN Reason: Insomnia Ondansetron HCl (Ondansetron Hcl 4 Mg/2 Ml Vial) 4 mg IVPUSH Q4H PRN PRN Reason: Nausea and Vomiting Last Admin: 03/22/24 04:38 Dose: 4 mg Documented By: RADHA Promethazine HCl (Promethazine Hcl 25 Mg/Ml Vial) 12.5 mg IM Q6H PRN PRN Reason: N/V unrelieved by Zofran Sodium Chloride (0.9 % Sodium Chloride Flush 3 Ml Syringe) 3 ml IVFLUSH QSHIFT [facility] Last Admin: 03/22/24 10:02 Dose: Not Given Documented By: SOFIA Non-Admin Reason: IV Running Topiramate (Topiramate 100 Mg Tablet) 100 mg PO DAILY [facility] Last Admin: 03/22/24 07:50 Dose: 100 mg Documented By: SOFIA Labs 03/20/24 18:25 03/22/24 05:47 Labs: Laboratory Results - last 24 hr 03/21/24 03/21/24 03/22/24 16:05 20:19 05:47 Hold Purple Top SEE NOTE Anion Gap 13 Estim Creat Clear Calc 86.1 Estimated GFR > 60 POC Glucose 172 H 163 H Random Glucose 194 H Calcium 8.0 L 03/22/24 03/22/24 07:21 10:59 Hold Purple Top Anion Gap Estim Creat Clear Calc Estimated GFR POC Glucose 185 H 128 H Random Glucose Calcium Assessment and Plan (1) Gastroparesis: Status: Acute (2) Intractable vomiting: Status: Acute (3) Cushingoid facies: Status: Acute Plan 34yo F with idiopathic gastroparesis diagnosed 5 yr ago presenting with intractable nausea + vomiting Intractable nausea vomiting/ gastroparesis - nausea vomiting improved, will place on soft diet, DC IV fluids, stop semaglutide that likely provoked gastroparesis DC narcotics. Seen by GI they recommended IV erythromycin 250 t.i.d. x3 days, change Phenergan due 25 mg q.6 hours by mouth as needed, patient has unknown allergy to Reglan Cushingoid features recommend outpatient follow-up with endocrinology to discuss hypercortisolism Reactive leukocytosis resolved DM2, new-onset - A1c 8.4. Continue insulin sliding scale, Pt states no prior hx DM,; will need MTF upon discharge, nutrition consult mood disorder - bupropion, topiramate hypothyroidism - continue LT4 VTE ppx - SCDs dispo - home eventually In my clinical judgment, the patient requires continued inpatient hospitalization for the following reasons: Nausea vomiting, unable to tolerate by mouth Quality Stroke Does the patient have a stroke diagnosis?: No VTE Prior VTE?: No VTE Risk Level:: Medical - moderate - high VTE Device Contraindication: Treatment Not Indicated VTE Drug Contraindication: N/A - Med Ordered
[2024-03-22 15:09] VITALS: BP 169/95; PULSE 93; RESP 18; TEMP 36.8; O2SAT 98
[2024-03-22] MEDS: Erythromycin Lactobionate 250 MG in 0.9 % Sodium Chloride 100 ML 100 MG IV ×2 (15:43→23:02)
[2024-03-22 16:10] LABS: Glucose, Whole Blood 136 mg/dL (60-115)
[2024-03-22] MEDS: diphenhydrAMINE HCL 25 MG CAPSULE PO ×2 (16:56→22:45)
[2024-03-22 19:12] VITALS: BP 166/95; PULSE 89; RESP 18; TEMP 36.4; O2SAT 96
[2024-03-22 20:15] LABS: Glucose, Whole Blood 123 mg/dL (60-115)
[2024-03-23 03:41] VITALS: BP 130/86; PULSE 88; RESP 16; TEMP 36.6; O2SAT 97
[2024-03-23] MEDS: Levothyroxine Sodium 25 MCG TABLET 12.5 MCG PO (05:34)
[2024-03-23 07:28] LABS: Glucose, Whole Blood 121 mg/dL (60-115)
[2024-03-23] MEDS: diphenhydrAMINE HCL 25 MG CAPSULE PO (07:28)
[2024-03-23 07:53] LABS: Anion Gap 13 (12-20); Blood Urea Nitrogen 7 mg/dL (9-16); Calcium 8.5 mg/dL (8.4-10.2); Carbon Dioxide 17 mmol/L (22-29); Chloride 115 mmol/L (96-108); Creatinine Clr Calc Pharmacy 79.1; Estimated Glomerular Filt Rate > 60; Glucose Random 121 mg/dL (60-115); Potassium 3.6 mmol/L (3.3-5.1); Sodium 141 mmol/L (135-145)
[2024-03-23] MEDS: Erythromycin Lactobionate 250 MG in 0.9 % Sodium Chloride 100 ML 100 MG IV (07:56)
[2024-03-23 07:57] VITALS: BP 131/83; PULSE 82; RESP 14; TEMP 36.2; O2SAT 98
[2024-03-23] MEDS: 0.9 % Sodium Chloride Flush 3 ML SYRINGE IVFLUSH (08:03)
[2024-03-23] MEDS: Topiramate 100 MG TABLET PO (08:32)
[2024-03-23] MEDS: buPROPion HCl XL 150 MG TAB.ER.24H PO (08:32)
--- NOTE | 2024-03-23 10:34 | P.DS_ITS ---
DS: Providers Provider Date of Service: 03/23/24 Date of admission: 03/21/24 10:00 Date of discharge: 03/23/24 Primary care physician: Juan Chou MD Consults: 03/21/24 01:20 Consult to Gastroenterology Routine Consulting Provider: Abby Luna Reason for consultation: Hx Gastroparesis, intractable N&V DS: Diagnosis Discharge Diagnosis (1) Gastroparesis: Status: Acute (2) Intractable vomiting: Status: Acute (3) Cushingoid facies: Status: Acute DS: Summary Hospital Course Hospital Course: History of presenting illness. Date of Service: 03/21/24 Chief Complaint: intractable nausea and vomiting A 34 years old lady with Hx of idiopathic gastroparesis diagnosed in [place] 6 years ago presenting with intractable nausea and vomiting for a week now. The patient was recently at [facility] for the same problem. Was in [facility] [place] ED yesterday and had IVF and nausea medicaitions with mild improvement but could not keep anything down at home with recurrent N&V. when i went in she was vomiting. she has infrequent episodes but usually her symptoms under control. no clear reason why did it start this time. To be admitted for monitoring until she can tolerates PO. Hospital course. 34yo F with idiopathic gastroparesis diagnosed 5 yr ago presented with intractable nausea + vomiting, patient admitted to medical floor treated with IV fluids, NPO, antiemetics , patient evaluated by licensed electrician and as per their recommendation treated with IV erythromycin, patient responded to above treatment, nausea ,vomiting has resolved, likely symptoms exacerbated by recent use of semaglutide and underlying diabetes mellitus undiagnosed , patient place on diabetic diet, that she is tolerating well without recurrent episodes of nausea, vomiting, she was treated in-house with insulin sliding scale, now being discharged home on metformin 500 mg daily for 1 week, followed by 500 mg twice daily ,she is recommended outpatient follow-up with endocrinology, and recommended to avoid narcotics, she was noted to have leukocytosis likely reactive now resolved, in regard to mood disorder she has been resumed on home medications, there was concern about cushingoid features recommend outpatient follow-up with endocrinology to discuss hypercortisolism DM2, new-onset - A1c 8.4, recommend to follow diabetic diet and metformin. In regard to hypothyroidism continue levothyroxine Time Attestation Discharge Coordination Time (in mins): 38 Quality: Safe Use of Opioids Does Pt have an Active Cancer Diagnosis on the Problem List?: No Quality: Stroke Does the patient have a stroke diagnosis?: No Physical Exam Vital Signs: Vital Signs: Last Vital Signs Temp 97.2 F 03/23/24 07:57 Pulse 82 03/23/24 07:57 Resp 14 03/23/24 07:57 BP 131/83 03/23/24 07:57 Pulse Ox 98 03/23/24 07:57 O2 Del Method Room Air 03/23/24 07:57 BMI result Body Mass Index 38.7 Const: Other: Gen: Awake alert x3, in no acute distress HEENT: sclera anicteric, moist mucus membranes Neck: supple Lungs: clear to auscultation bilaterally Heart: regular rate and rhythm, no murmurs Abd: soft, non-tender, non-distended, bowel sounds audible Ext: no edema Skin: warm/well-perfused Neuro: no focal findings Psych: appropriate affect DS: Data Data Completed and Pending Labs on day of discharge: Laboratory Results - last 24 hr 03/22/24 03/22/24 03/22/24 10:59 16:06 20:11 Hold Purple Top Sodium Potassium Chloride Carbon Dioxide Anion Gap BUN Creatinine Estim Creat Clear Calc Estimated GFR POC Glucose 128 H 136 H 123 H Random Glucose Calcium 03/23/24 03/23/24 05:54 07:22 Hold Purple Top SEE NOTE Sodium 141 Potassium 3.6 Chloride 115 H Carbon Dioxide 17 L Anion Gap 13 BUN 7 L Creatinine 0.87 Estim Creat Clear Calc 79.1 Estimated GFR > 60 POC Glucose 121 H Random Glucose 121 H Calcium 8.5 D Discharge Plan Discharge Anticipated Discharge Date/Time: 03/23/24 10:01 Patient Disposition: Home, Self-Care Discharge Diagnosis: Intractable nausea vomiting new onset diabetes Referrals: Juan Chou MD [Primary Care Provider] - 1 Week Discharge Medications: New metformin 500 mg tablet 500 mg PO BID Qty: 60 0RF Rx Instructions: Take metformin 500 mg 1 tablet daily for 1 week ,followed by 500 mg 1 tablet twice daily (DME) FreeStyle Lite Strips Strip Qty: 100 0RF Rx Instructions: Test four times a day or as directed. (DME) blood-glucose meter [FreeStyle Lite Meter] Kit Qty: 1 0RF Rx Instructions: As Directed alcohol swabs Pads, Medicated 1 pad TOPICAL QIDACHS Qty: 100 0RF Rx Instructions: Use four times a day or as directed. (DME) lancets [FreeStyle Lancets] 28 gauge misc Qty: 100 0RF Rx Instructions: Test four times a day or as directed. Continued bupropion HCl 150 mg tablet sustained-release 12 hr 150 mg PO DAILY topiramate [Topamax] 100 mg tablet 100 mg PO DAILY levothyroxine 25 mcg capsule 12.5 mcg PO DAILY@0600 Discontinued Rybelsus 7 mg tablet 7 mg PO DAILY Discharge Orders: Discharge Order (Routine); Ordered 03/23/24 Ordered By: Sabiha Meyers Diet: Diabetic diet Activity on Discharge: As tolerated Stand Alone Forms: Patient Portal Discharge page Print Language: Mongolian Care Plan Goals: New onset diabetes mellitus/ Follow diabetic diet Monitor blood sugar twice daily and maintain record of blood sugars, follow-up with endocrinology Take metformin 500 mg 1 tablet daily for 7 days followed by metformin 1 tablet twice daily Health Concerns: Gastroparesis Plan of Treatment: Follow-up with endocrinology call for appointment Assessment: As above
== END 2024-03-23 10:44 | disposition home or self-care (01) | DRG 254 ==
LOC: HO.ED 03-21 01:06 → HO.EDOVER 03-21 01:27 → HO.S3 03-21 12:23
PROVIDERS: Family Medicine; Physician Assistant Medical; Admitting Provider Student in an Organized Health Care Education/Training Program; Emergency Provider Emergency Medicine; PCP Internal Medicine; Visit Provider Hospitalist
DX: K31.84 Gastroparesis (principal); E03.9 Hypothyroidism, unspecified; F39 Unspecified mood [affective] disorder; E11.9 Type 2 diabetes mellitus without complications; Z79.890 Hormone replacement therapy; Z79.899 Other long term (current) drug therapy
CPT/HCPCS: 36415; 80048; 80076; 82947; 83036; 83690; 83735; 85025; 99285; J0737; J1364; J1885; J2270; J2405

== ENCOUNTER → 2024-03-21 01:20 | Outpatient (BNV) | payer OTHER, SELFPAY | PROVIDERS: Admitting Provider Student in an Organized Health Care Education/Training Program; Emergency Provider Emergency Medicine; PCP Internal Medicine; Visit Provider Student in an Organized Health Care Education/Training Program | DX: K31.84 Gastroparesis (principal); R11.10 Vomiting, unspecified; R68.89 Other general symptoms and signs | CPT/HCPCS: 99222; 99232; 99239; 99499 ==

== ENCOUNTER → 2024-03-21 10:00 | Outpatient (BNV) | payer OTHER, SELFPAY | PROVIDERS: Admitting Provider Student in an Organized Health Care Education/Training Program; Emergency Provider Emergency Medicine; PCP Internal Medicine; Visit Provider Internal Medicine | DX: K31.84 Gastroparesis (principal); R11.10 Vomiting, unspecified; R68.89 Other general symptoms and signs | CPT/HCPCS: 99223 ==

== ENCOUNTER 2024-03-31 07:31 | Inpatient (IN) | payer OTHER, SELFPAY ==
[2024-03-31 07:32] VITALS: BP 165/105; PULSE 109; RESP 18; TEMP 36.1; O2SAT 98; BMI 37.9
[2024-03-31 08:06] LABS: MANUAL DIFF FLAG NO
[2024-03-31 08:08] LABS: Basophils Absolute Auto 0.1 X10*3/uL (0.0-0.2); Basophils Percent Auto 0.4 % (0-2); Eosinophils Absolute Auto 0.1 X10*3/uL (0.0-0.4); Eosinophils Percent Auto 0.7 % (0-4); Hematocrit 41.8 % (37.0-47.0); Hemoglobin 14.2 g/dl (12.0-16.0); Imm Gran Abs Auto 0.06 X10*3/uL (0.00-0.03); Imm Gran Pct Auto 0.4 % (0.0-0.4); Lymphocytes Percent Auto 18.6 % (20-40); Mean Corpuscular Hemoglobin 29.2 pg (27.0-33.0); Mean Corpuscular Volume 85.8 fL (80.0-98.0); Mean Platelet Volume 9.7 fL (9.4-12.3); Monocytes Absolute Auto 0.7 X10*3/uL (0.1-1.2); Monocytes Percent Auto 4.5 % (2-11); Neutrophils Absolute Auto 12.1 x10*3/uL (2.0-8.3); Neutrophils Percent Auto 75.4 % (45-73); Platelet Count 448 X10*3/uL (160-400); Red Blood Count 4.87 X10*6/uL (4.20-5.50); Red Cell Distribution Width 12.9 % (11.0-16.0); White Blood Count 16.1 X10*3/uL (4.8-10.8)
[2024-03-31 08:20] LABS: Anion Gap 17 (12-20); Blood Urea Nitrogen 15 mg/dL (9-16); Carbon Dioxide 17 mmol/L (22-29); Chloride 109 mmol/L (96-108); Creatinine Clr Calc Pharmacy 54.8; Estimated Glomerular Filt Rate 49; Glucose Random 234 mg/dL (60-115); Potassium 3.9 mmol/L (3.3-5.1); Sodium 139 mmol/L (135-145)
--- NOTE | 2024-03-31 08:22 | ED.ABDPAIN ---
HPI - Abdominal Pain General Chief Complaint: Abdominal Pain Stated Complaint: gastic pain flareup Time Seen by Provider: 03/31/24 07:52 Source: patient, RN notes reviewed and old records reviewed Mode of arrival: ambulatory History of Present Illness ED Provider: Lucy Miller PA-C HPI narrative: 34-year-old female with a past medical history of idiopathic gastroparesis, diabetes, cushingoid facies, presenting to the ED complaining of lower abdominal discomfort, nausea, vomiting, and inability to tolerate p.o. since last night. Patient was recently admitted to our facility, discharged on 03/23/2024 for similar symptoms. Admits to taking oral Compazine morphine last night. Denies fever, chills, dysuria/hematuria, diarrhea/constipation. Related Data Home Medications ?Medication ?Instructions ?Recorded ?Confirmed bupropion HCl 150 mg tablet,12 hr 150 mg PO DAILY 03/06/21 03/31/24 sustained-release levothyroxine 25 mcg capsule 12.5 mcg PO DAILY@0600 07/30/23 03/31/24 topiramate 100 mg tablet (Topamax) 100 mg PO DAILY 07/30/23 03/31/24 prochlorperazine maleate 10 mg 10 mg PO Q8H PRN nausea/vomiting 03/31/24 03/31/24 tablet Previous Rx's ?Medication ?Instructions ?Recorded blood sugar diagnostic (FreeStyle #100 ea 03/23/24 Lite Strips) blood-glucose meter (FreeStyle #1 ea 03/23/24 Lite Meter kit) lancets 28 gauge (FreeStyle #100 ea 03/23/24 Lancets) Allergies Allergy/AdvReac Type Severity Reaction Status Date / Time influenza virus vaccine, Allergy Mild UNKNOWN Verified 03/31/24 07:36 specific [FLU VACCINE] doxycycline [DOXYCYCLINE] Allergy Unknown SWELLING Verified 03/31/24 07:36 vancomycin [VANCOMYCIN] Allergy Unknown ANAPHYLAXIS Verified 03/31/24 07:36 erythromycin base Allergy Itching Verified 03/31/24 07:36 metoclopramide [From Reglan] Allergy Unknown Verified 03/31/24 07:36 shellfish Allergy Mild Swelling Uncoded 03/31/24 07:36 Review of Systems Review of Systems Yes all other systems are reviewed and are negative Constitutional: Reports as per [facility] Past Medical History Attestation statement: The following information was validated with the patient. Source: old records reviewed Medical History (Updated 03/31/24 @ 11:51 by Alix Martinez PA-C) New onset type 2 diabetes mellitus Cholecystectomy planned Pre-diabetes Lyme disease Osteoarthritis PCOS (polycystic ovarian syndrome) Gastroparesis Surgical History History of cholecystectomy H/O partial thyroidectomy Family History Family History Maternal Aunt Breast cancer Social History Social History Household Members: Other Housing: House Do you presently have visiting nurse or other home services: No Unable to assess alcohol history related to: Unknown Alcohol intake: never Patient Tobacco Use Status: Never used Tobacco Second Hand Smoke Exposure: No Advance Directives: No Advance Directives Information Provided: Yes Do you have a plan to hurt others: No Plan service: No Current occupational status: employed Physical Exam ED Vital Signs: Vital Signs - 24 hr 03/31/24 07:32 Temperature 96.9 F Pulse Rate 109 H Respiratory Rate 18 Blood Pressure 165/105 H Pulse Oximetry 98 Oxygen Delivery Method Room Air BMI result Body Mass Index 37.9 Const Other: Tearful General: cooperative and no acute distress Nutritional Appearance: overweight Orientation/consciousness: patient oriented x3 Limitations: no limitations HENMT Head: Yes normal to inspection and Yes atraumatic Ears: hearing grossly normal bilaterally General nose exam: Normal external nose present Face and sinus: Yes normal facial exam Eyes General: appearance normal, both eyes and all related structures EOM: EOMs intact bilaterally Neck Neck: Yes normal visual inspection and Yes no meningeal signs Resp Effort & Inspection: normal respiratory effort and no respiratory distress Auscultation: clear to auscultation bilaterally Cardio Rate: regular rate Heart sounds: S1 normal heart sound present and S2 normal heart sound present GI Inspection: Yes normal to inspection Palpation (GI): Soft to palpation, nontender, no guarding and not rigid General: Yes no CVA tenderness Back/Spine/Pelvis Back: no CVA tenderness Skin Rashes: no rashes Wounds: no wounds Neuro General: patient oriented x3, tone normal and no meningeal signs Cranial nerves: Yes CN's II-XII intact bilaterally Gait exam (Neuro): Normal gait present Extrem General: Yes normal to inspection Course Course Course Narrative: -0911--patient with appreciable dry heaving in the ED. Leukocytosis of 16.1 > suspect from nausea/vomiting and dry heaving rather than severe sepsis. Continue low suspicion for severe sepsis. Will obtain lactic/blood cultures. No antibiotics indicated at this time -AST/ALT mildly elevated -1039--lactic acidosis 2.4 > likely from metformin. Still low suspicion for severe sepsis -consulted GI, Dr. Luna >1045--on re-evaluation patient reports continued nausea. Unable to tolerate p.o. Will give try oral tramadol per prior GI recommendations. Plan to admit to hospitalist Medical Decision Making Medical Decision Making [facility] Narrative: 34-year-old female with a past medical history of idiopathic gastroparesis, diabetes, cushingoid facies, presenting to the ED complaining of lower abdominal discomfort, nausea, vomiting, and inability to tolerate p.o. since last night. On exam hypertensive, tachycardic, tearful, abdomen soft and nontender, emesis bag in hand, concern for recurrent idiopathic gastroparesis. Rule out metabolic abnormalities. Lower suspicion for acute appendicitis/diverticulitis, pancreatitis or cholecystitis/lithiasis at this time Plan: Labs, UA, DIAMOND, IVF, antiemetics, re-evaluate Please refer to course for remaining clinical decision making, interpretation of labs/imaging results, and discussions with consultants and/or family members. Differential Diagnosis Differential Diagnoses: The differential diagnosis associated with the presentation includes As above Admission/Observation Consideration of admission/observation: Escalation of care including admission/observation considered Consult Healthcare Provider Management of the patient was discussed with: Hospitalist and [place] [employer] Lab Data [facility] Lab Attestation statement: I reviewed the patient's lab results. 03/31/24 08:03 03/31/24 08:03 Labs: Lab Results 03/31/24 03/31/24 Range/Units 08:03 09:53 WBC 16.1 H (4.8-10.8) X10*3/uL RBC 4.87 (4.20-5.50) X10*6/uL Hgb 14.2 (12.0-16.0) g/dl Hct 41.8 (37.0-47.0) % MCV 85.8 (80.0-98.0) fL MCH 29.2 (27.0-33.0) pg MCHC 34.0 (31.0-35.0) g/dl RDW 12.9 (11.0-16.0) % Plt Count 448 H (160-400) X10*3/uL MPV 9.7 (9.4-12.3) fL Immature Gran % (Auto) 0.4 (0.0-0.4) % Neut % (Auto) 75.4 H (45-73) % Lymph % (Auto) 18.6 L (20-40) % [place] % (Auto) 4.5 (2-11) % Eos % (Auto) 0.7 (0-4) % Baso % (Auto) 0.4 (0-2) % Lymph # (Auto) 3.0 (1.2-4.9) X10*3/uL [place] # (Auto) 0.7 (0.1-1.2) X10*3/uL Eos # (Auto) 0.1 (0.0-0.4) X10*3/uL Baso # (Auto) 0.1 (0.0-0.2) X10*3/uL Abs Immat Gran (auto) 0.06 H (0.00-0.03) X10*3/uL Absolute Neuts (auto) 12.1 H (2.0-8.3) x10*3/uL Absolute Nucleated RBC 0.000 (0.0-0.012) X10*3/uL Nucleated RBC % (auto) 0.0 (0.0-0.2) /100WBC Sodium 139 (135-145) mmol/L Potassium 3.9 (3.3-5.1) mmol/L Chloride 109 H (96-108) mmol/L Carbon Dioxide 17 L (22-29) mmol/L Anion Gap 17 (12-20) BUN 15 (9-16) mg/dL Creatinine 1.24 (0.5-1.4) mg/dL Estim Creat Clear Calc 54.8 Estimated GFR 49 Random Glucose 234 H (60-115) mg/dL Lactic Acid 2.4 H* (0.5-2.0) mmol/L Calcium 10.0 D (8.4-10.2) mg/dL Magnesium 1.9 (1.6-2.6) mg/dL Total Bilirubin 0.3 (0.0-1.0) mg/dL Direct Bilirubin 0.1 (0.0-0.5) mg/dL AST 34 H (5-31) U/L ALT 51 H (0-31) U/L Alkaline Phosphatase 82 (39-117) U/L Total Protein 8.0 (6.5-8.0) g/dL Albumin 4.4 (3.5-5.0) g/dL Lipase 49 (8-78) U/L Radiology Impression Discussion of test interpretation with radiology: I have reviewed the radiologist's reading. External Record Review External record reviewed: Inpatient record, Office record, Outpatient record, Prior outpatient labs, Prior outpatient radiology, Primary care record and Outside ED record Tests considered The following testing was considered but not selected: As above Prescription Management I considered prescription management with: Pain Medication Chronic Conditions Patient?s care impacted by: Diabetes and Other Social Determinants Patient?s care significantly limited by Social Determinants of Health including: Other Social Determinant of Health Medications Administered Generic Name Dose Route Start Last Admin Trade Name Freq PRN Reason Stop Dose Admin Enoxaparin Sodium 40 mg 03/31/24 12:00 03/31/24 12:30 Enoxaparin Sodium 40 Mg/0.4 Ml Syringe SUBCUT Not Given Q24H SRI Lactated Ringer's 1,000 mls @ 100 mls/hr 03/31/24 12:00 03/31/24 12:27 Lr IVCONT 100 mls/hr .Q10H SRI Administration Sodium Chloride 3 ml 03/31/24 16:00 03/31/24 14:06 0.9 % Sodium Chloride Flush 3 Ml Syringe IVFLUSH Not Given QSHIFT SRI Discontinued Medications Generic Name Dose Route Start Last Admin Trade Name Freq PRN Reason Stop Dose Admin Diphenhydramine HCl 25 mg 03/31/24 08:19 03/31/24 08:35 Diphenhydramine Hcl 50 Mg/Ml Vial IVPUSH 03/31/24 08:20 25 mg ONCE ONE Administration Lactated Ringer's 1,000 mls @ 999 mls/hr 03/31/24 08:30 03/31/24 13:29 Lr IV 03/31/24 09:30 Infused .Q1H1M SRI Infusion Sodium Chloride 1,000 mls @ 999 mls/hr 03/31/24 10:45 03/31/24 12:08 Ns IV 03/31/24 11:45 Not Given .Q1H1M SRI Promethazine HCl 25 mg 03/31/24 09:09 03/31/24 09:28 Promethazine Hcl 25 Mg Tablet PO 03/31/24 09:10 25 mg ONCE ONE Administration Tramadol HCl 50 mg 03/31/24 10:44 03/31/24 11:13 Tramadol Hcl 50 Mg Tablet PO 03/31/24 10:45 50 mg ONCE ONE Administration Discharge Plan Discharge Clinical Impression: Gastroparesis, Intractable nausea and vomiting Patient Disposition: Admitted As Inpatient Interventions: Admission Worksheet (ED) Last Done: 03/31/24 16:44
[2024-03-31] MEDS: diphenhydrAMINE HCL 50 MG/ML VIAL 25 MG IVPUSH ×2 (08:35→23:50)
[2024-03-31] MEDS: Lactated Ringers 1,000 ML 999 ML IV (08:35)
[2024-03-31 09:01] LABS: Alanine Aminotransferase 51 U/L (0-31); Albumin Level 4.4 g/dL (3.5-5.0); Alkaline Phosphatase 82 U/L (39-117); Aspartate Amino Transferase 34 U/L (5-31); Bilirubin Direct 0.1 mg/dL (0.0-0.5); Bilirubin Total 0.3 mg/dL (0.0-1.0); Lipase 49 U/L (8-78); Magnesium 1.9 mg/dL (1.6-2.6)
[2024-03-31] MEDS: Promethazine HCL 25 MG TABLET PO (09:28)
[2024-03-31 10:22] LABS: Lactic Acid 2.4 mmol/L (0.5-2.0)
[2024-03-31] MEDS: traMADoL HCL 50 MG TABLET PO ×2 (11:13→17:52)
--- NOTE | 2024-03-31 11:36 | P.HPHOSP_ITS ---
History of Present Illness Date of Service: 03/31/24 Attending physician on admission: Sabiha Meyers Chief Complaint: Nausea, vomiting, lower abdominal pain Patient is a 34-year-old female with a past medical history significant for idiopathic gastroparesis, new onset type 2 diabetes and cushingoid facies, who was recently discharged for intractable vomiting and gastroparesis on 03/23/24 who returns today with same symptoms. She reports vomiting 8-9 times this morning, bilious with some blood tinge due to irritation. She has tolerate anything p.o. since last night. Previously she was taking semaglutide but reports she has not taken this in at least 2 weeks. She has been taking Compazine at home which has been helpful however her symptoms have progressively been worsening over the past few days she reports her 1st solid bowel movement last night followed by severe diarrhea today. No hematochezia or melena. She describes chills which occur usually prior to a gastroparesis flare. He also has lower abdominal aching that is traveling upwards and laterally bilaterally. Previously she tried erythromycin for gastroparesis however reports it caused itching therefore she discontinued. She was also recently discharged home with metformin due to a new diagnosis of type 2 diabetes however she reports she has not started this as she was waiting for her endocrinology appointment as she has had worsening gastroparesis in the past with the metformin. Review of Systems 2 Constitutional: Constitutional: Reports chills, Denies fatigue, Denies fever(s) and Denies headache(s) Eyes: Eyes: Denies change in vision ENT: Denies headache(s), Denies nasal congestion, Denies nasal discharge and Denies nasal obstruction Cardiovascular: Cardiovascular: Denies chest pain, Denies rapid heart rate, Denies leg edema and Denies dyspnea Respiratory: Respiratory: Denies chest congestion, Denies cough and Denies dyspnea Gastrointestinal: Gastrointestinal: Denies melena, Denies hematochezia, Denies coffee ground emesis, Denies constipation, Reports diarrhea, Reports nausea, Reports vomiting and Reports hematemesis (mild blood tinged streaks) Genitourinary: Genitourinary: Denies difficulty voiding, Denies dysuria and Denies urinary urgency Integumentary/Breasts: Skin/Breast: Denies rash Neurologic: Denies confusion, Denies headache(s) and Denies memory loss Psychiatric: Psychiatric: Denies confusion and Denies memory loss Endocrine: Endocrine: Denies fatigue [facility] Medical History (Updated 03/31/24 @ 11:51 by Alix Martniez PA-C) New onset type 2 diabetes mellitus Cholecystectomy planned Pre-diabetes Lyme disease Osteoarthritis PCOS (polycystic ovarian syndrome) Gastroparesis Functional capacity: independent ambulation Family History Maternal Aunt Breast cancer Surgical History History of cholecystectomy H/O partial thyroidectomy Social History Household Members: Friend(s) Housing: House Housing Other:: s stairs Do you presently have visiting nurse or other home services: No Unable to assess alcohol history related to: Unknown Alcohol intake: never Patient Tobacco Use Status: Never used Tobacco Second Hand Smoke Exposure: No Use of substances other than those prescribed or required for medical reasons: No Currently Displaying Signs/Symptoms of Drug Intoxication Withdrawal: No Have you been hit, kicked, punched, or otherwise hurt by someone within the past year? If so, by whom?: No Do you feel safe in your current relationship?: Yes Is there a partner from a previous relationship who is making you feel unsafe now?: No Are you made to feel afraid or neglected: No Advance Directives: No Advance Directives Information Provided: Yes Do you have a plan to hurt others: No Plan Recently lost weight without trying: Yes How much weight loss: 2-13 pounds Eating poorly because of decreased appetite: Yes Nutrition screen score: 4 Nutrition Risks: Acute nausea or vomiting x1 week Patient : No : No Poor oral hygiene: No service: No Current occupational status: employed Meds Allergies Allergy/AdvReac Type Severity Reaction Status Date / Time influenza virus vaccine, Allergy Mild UNKNOWN Verified 03/31/24 07:36 specific [FLU VACCINE] doxycycline [DOXYCYCLINE] Allergy Unknown SWELLING Verified 03/31/24 07:36 vancomycin [VANCOMYCIN] Allergy Unknown ANAPHYLAXIS Verified 03/31/24 07:36 erythromycin base Allergy Itching Verified 03/31/24 07:36 metoclopramide [From Reglan] Allergy Unknown Verified 03/31/24 07:36 shellfish Allergy Mild Swelling Uncoded 03/31/24 07:36 Active Medications: Current Medications Sodium Chloride (Ns) 1,000 mls @ 999 mls/hr IV .Q1H1M SRI Stop: 03/31/24 11:45 Home Medications ?Medication ?Instructions ?Recorded ?Confirmed ?Last Taken ?Type bupropion HCl 150 mg tablet,12 hr 150 mg PO DAILY 03/06/21 03/31/24 03/30/24 History sustained-release levothyroxine 25 mcg capsule 12.5 mcg PO DAILY@0600 07/30/23 03/31/24 03/30/24 History topiramate 100 mg tablet (Topamax) 100 mg PO DAILY 07/30/23 03/31/24 03/30/24 History prochlorperazine maleate 10 mg 10 mg PO Q8H PRN nausea/vomiting 03/31/24 03/31/24 Unknown History tablet Physical Exam 2 Vital Signs and Narrative: Vital Signs: Last Vital Signs Temp 96.9 F 03/31/24 07:32 Pulse 109 H 03/31/24 07:32 Resp 18 03/31/24 07:32 BP 165/105 H 03/31/24 07:32 Pulse Ox 98 03/31/24 07:32 O2 Del Method Room Air 03/31/24 07:32 BMI result Body Mass Index 37.9 General: AOx3, no acute distress Resp: CTA bilaterally CVS: S1, S2, RRR GI: hypoactive bowel sounds, BS, mild tenderness lower abd Skin: Warm, dry Extremities: No edema Psych: Appropriate affect Const: General: No confusion Orientation/consciousness: No confusion Neuro: General: No confusion Results Labs 04/01/24 06:54 04/01/24 12:11 Labs: Laboratory Results - last 24 hr 03/31/24 03/31/24 08:03 09:53 MCV 85.8 MCH 29.2 MCHC 34.0 RDW 12.9 Plt Count 448 H MPV 9.7 Immature Gran % (Auto) 0.4 Neut % (Auto) 75.4 H Lymph % (Auto) 18.6 L Todd % (Auto) 4.5 Eos % (Auto) 0.7 Baso % (Auto) 0.4 Lymph # (Auto) 3.0 Todd # (Auto) 0.7 Eos # (Auto) 0.1 Baso # (Auto) 0.1 Abs Immat Gran (auto) 0.06 H Absolute Neuts (auto) 12.1 H Absolute Nucleated RBC 0.000 Nucleated RBC % (auto) 0.0 Anion Gap 17 Estim Creat Clear Calc 54.8 Estimated GFR 49 Random Glucose 234 H Lactic Acid 2.4 H* Calcium 10.0 D Magnesium 1.9 Total Bilirubin 0.3 Direct Bilirubin 0.1 AST 34 H ALT 51 H Alkaline Phosphatase 82 Total Protein 8.0 Albumin 4.4 Lipase 49 Assessment and Plan (1) Gastroparesis: Status: Chronic (2) Intractable nausea and vomiting: Status: Acute (3) Obesity (BMI 35.0-39.9 without comorbidity): Status: Chronic Plan Patient is a 34-year-old female with a past medical history significant for idiopathic gastroparesis, new onset type 2 diabetes and cushingoid facies, who was recently discharged for intractable vomiting and gastroparesis on 03/23/24 who returns today with same symptoms. She reports vomiting 8-9 times this morning, bilious with some blood tinge due to irritation. gastroparesis flare - recurrent - CBC and BMP okay - given 1 L LR in ED, diphenhydramine 25 mg and promethazine 25 mg, doing well, nausea improved - tramadol 50 mg PRN for abdominal pain, good improvement of pain - Reglan 5 mg TID for nausea and tramadol PRN for pain - continue IV fluids - GI consult New onset type 2 diabetes - sliding scale insulin - diabetic diet Cushingoid facies - following with endocrinology Full code VTE prophylaxis: Lovenox Patient with gastroparesis flare, severe intractable nausea, failed outpatient treatment, requiring admission for at least 2 midnights stay for IV fluids and monitoring. Quality Stroke Does the patient have a stroke diagnosis?: No VTE Prior VTE?: No VTE Risk Level:: Medical - moderate - high VTE Device Contraindication: Treatment Not Indicated VTE Drug Contraindication: N/A - Med Ordered
[2024-03-31 11:57] LABS: Reflex Lactate? Lactic Acid Added
[2024-03-31] MEDS: Lactated Ringers 1,000 ML 100 ML IVCONT (12:27)
--- NOTE | 2024-03-31 13:08 | PHA.MEDREC ---
Addendum entered by Ady Dawson RPh 03/31/24 13:12: Reviewed by [facility] Original Note: Pharmacy Consult ? Medication Reconciliation Pharmacy has completed the medication reconciliation. Spoke to patient to confirm med list. Patient was able to name off what medication she takes. Patient states she hasn't started Metformin 500 mg. She wants to speak with her PCP for she starts this medication. Patient confirmed she started taking Prochlorperazine mal 10 mg only prn. 03/30/24 was the last time she took her medications.
[2024-03-31 13:26] LABS: ~Lactic Acid-LAB USE ONLY 1.6 mmol/L (0.5-2.0)
[2024-03-31 13:37] VITALS: BP 122/81; PULSE 98; RESP 20; TEMP 36.6; O2SAT 97
--- NOTE | 2024-03-31 14:52 | P.CNGI_ITS ---
History of Present Illness Data of Consult Service Date: 03/31/24 <Neela Mejia MD - Last Filed: 04/08/24 00:33> Requesting physician: Sabiha Meyers <Neela Mejia MD - Last Filed: 04/08/24 00:33> Primary Care Provider: Juan Chou MD <Neela Mejia MD - Last Filed: 04/08/24 00:33> HPI Reason for consult: Gastroparesis flare <Neela Mejia MD - Last Filed: 04/08/24 00:33> 34 YF with idiopathic gastroparesis (diagnosed 6 yrs ago), obesity, new onset type 2 diabetes and cushingoid facies came to [facility] ED on 03/31/24 with abd pain, nausea, projectile vomiting and diarrhea for the past week. Pt reports vomiting 8-9 times since 2 am today, bilious with some blood tinge due to irritation. She has not been able to tolerate anything p.o. since last night. She takes Compazine at home for nausea and vomiting (since PO Zofran is not effective) which has been helpful however her symptoms have progressively been worsening over the past few days. She reports having a solid bowel movement last night followed by severe diarrhea today. No hematochezia or melena. Pt complains of lower abdominal pain that is traveling upwards and laterally bilaterally. She describes chills which occur usually prior to a gastroparesis flare This episodes has been her longest flare without a break and she has been to the ED 5 times. Pt was hospitalized at [facility] 03/20 to 03/23/24 with intractable vomiting, abd pain and diarrhea. Pt was seen by Dr Luna and treated with IV erythromycin with improvement in her symptoms. She noted localized itching at the site of IV injection which resolved after she was given IV benadryl prior to the injection. Previously she was taking semaglutide for wt loss and reports she has not taken this in at least 2 weeks. She was also recently discharged home with metformin due to a new diagnosis of type 2 diabetes however she reports she has not started this as she was waiting for her endocrinology appointment as she has had worsening gastroparesis in the past with the metformin. Hx obtained from the patient and her parents who were at the bedside. Parents report pt has had GI problems since childhood which were attributed to anxiety. Her GI symptoms have been worse for the past 10 yrs Pt was diagnosed with severe Gastroparesis 6 years ago at [facility] in [place], [place] Pt reports she had a 7 hour gastric emptying study which showed 80% of the food remaining in her stomach She also reports having multiple EGDs and a colonoscopy in the past (2016/2017) She was initially treated with Reglan which was discontinued due to hallucination. She was then given domperidone which was discontinued due to extrapyramidal side effects (lost control of facial muscles and had drooling from her mouth) Treatment options of placement of a gastric stimulator and G tube placement for venting was discussed with the pt and declined Pt is on no medication for Gastroparesis at present (Takes Dramamine at 1-2 times at night for nausea and vomiting) She has persistent 3-4/10 chronic lower abd pain and chronic nausea. She complains of heartburn and nocturnal regurgitation/vomiting with choking during sleep Abdominal pain gets worse when she has bloating or abdominal distention. Pt complains of constipation (when no flare) and can get bad diarrhea at the beginning of a flare. She reports having an episode of impaction after she had a barium study. She lost 40 lbs in the past and regained 20 lbs after an injury at work She had a Lap Chata 6 years ago (for non functioning gallbladder with 25% GB emptying) without any relief of her symptoms She was diagnosed with hypothyroidism (Thyroid surgery in 2007 for a thyroid nodule) and PCOS at age 15 yrs. She was checked for POTS by a table tilt test which was negative) Pt denies smoking cigarettes or using marijuana and takes ETOH rarely. She admits to snoring. 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 03/20/[address] SCAN SHOWED: Consider epiploic appendagitis, proximal to mid descending colon 3.7 cm cystic lesion, left adnexa. Small fat-containing umbilical hernia. Hepatomegaly.. <Neela Mejia MD - Last Filed: 04/08/24 00:33> Review of Systems 2 Constitutional: Constitutional: Reports chills, Denies fatigue, Denies fever(s) and Denies headache(s) <Neela Mejia MD - Last Filed: 04/08/24 00:33> Eyes: Eyes: Denies change in vision <Neela Mejia MD - Last Filed: 04/08/24 00:33> ENT: Denies headache(s), Denies nasal congestion, Denies nasal discharge and Denies nasal obstruction <Neela Mejia MD - Last Filed: 04/08/24 00:33> Cardiovascular: Cardiovascular: Denies chest pain, Denies rapid heart rate, Denies leg edema and Denies dyspnea <Neela Mejia MD - Last Filed: 04/08/24 00:33> Respiratory: Respiratory: Denies chest congestion, Denies cough and Denies dyspnea <Neela Mejia MD - Last Filed: 04/08/24 00:33> Gastrointestinal: Gastrointestinal: Denies melena, Denies hematochezia, Denies coffee ground emesis, Denies constipation, Reports diarrhea, Reports nausea, Reports vomiting and Reports hematemesis (mild blood tinged streaks) < Neela Mejia MD - Last Filed: 04/08/24 00:33> Genitourinary: Genitourinary: Denies difficulty voiding, Denies dysuria and Denies urinary urgency <Neela Mejia MD - Last Filed: 04/08/24 00:33> Integumentary/Breasts: Skin/Breast: Denies rash <Neela Mejia MD - Last Filed: 04/08/24 00:33> Neurologic: Denies confusion, Denies headache(s) and Denies memory loss < Neela Mejia MD - Last Filed: 04/08/24 00:33> Psychiatric: Psychiatric: Denies confusion and Denies memory loss <Neela Mejia MD - Last Filed: 04/08/24 00:33> Endocrine: Endocrine: Denies fatigue <Neela Mejia MD - Last Filed: 04/08/24 00:33> PMFSH Past Medical History Medical History: Medical History New onset type 2 diabetes mellitus Cholecystectomy planned Pre-diabetes Lyme disease Osteoarthritis PCOS (polycystic ovarian syndrome) Gastroparesis <Neela Mejia MD - Last Filed: 04/08/24 00:33> Family History Family History: Family History Maternal Aunt Breast cancer <Neela Mejia MD - Last Filed: 04/08/24 00:33> Surgical History Surgical History: Surgical History History of cholecystectomy H/O partial thyroidectomy <Neela Mejia MD - Last Filed: 04/08/24 00:33> Social History Social History: Social History Household Members: Friend(s) Housing: House Housing Other:: s stairs Do you presently have visiting nurse or other home services: No Unable to assess alcohol history related to: Unknown Alcohol intake: never Patient Tobacco Use Status: Never used Tobacco Smoked in Last 30 Days: No Second Hand Smoke Exposure: No Use of substances other than those prescribed or required for medical reasons: No Advance Directives: No Advance Directives Information Provided: Yes Do you have a plan to hurt others: No Plan service: No Current occupational status: employed <Neela Mejia MD - Last Filed: 04/08/24 00:33> Meds Allergies/Adverse reactions: Allergies Allergy/AdvReac Type Severity Reaction Status Date / Time influenza virus vaccine, Allergy Mild UNKNOWN Verified 04/05/24 05:51 specific [FLU VACCINE] doxycycline [DOXYCYCLINE] Allergy Unknown SWELLING Verified 04/05/24 05:51 vancomycin [VANCOMYCIN] Allergy Unknown ANAPHYLAXIS Verified 04/05/24 05:51 erythromycin base Allergy Itching Verified 04/05/24 05:51 metoclopramide [From Reglan] Allergy Unknown Verified 04/05/24 05:51 shellfish Allergy Mild Swelling Uncoded 04/05/24 05:51 <Neela Mejia MD - Last Filed: 04/08/24 00:33> Active Medications: Current Medications Acetaminophen (Acetaminophen 325 Mg Tablet) 650 mg PO Q6H PRN PRN Reason: Pain, Mild (Pain Scale 1-3), fever or headache Calcium Carbonate (Calcium Carbonate 750 Mg Tab.Chew) 750 mg PO Q4H PRN PRN Reason: Heartburn Enoxaparin Sodium (Enoxaparin Sodium 40 Mg/0.4 Ml Syringe) 40 mg SUBCUT Q24H [facility] Last Admin: 03/31/24 12:30 Dose: Not Given Lactated Ringer's (Lr) 1,000 mls @ 100 mls/hr IVCONT .Q10H [facility] Last Admin: 03/31/24 12:27 Dose: 100 mls/hr Magnesium Hydroxide (Milk Of Magnesia 30 Ml Oral.Susp) 30 ml PO DAILY PRN PRN Reason: Constipation Melatonin (Melatonin 3 Mg Tablet) 6 mg PO BEDTIME PRN PRN Reason: Insomnia Morphine Sulfate (Morphine Sulfate 4 Mg/Ml Cartridge) 2 mg IVPUSH Q6H PRN; Protocol PRN Reason: Pain, Severe (Pain Scale 7-10) Sodium Chloride (0.9 % Sodium Chloride Flush 3 Ml Syringe) 3 ml IVFLUSH QSHIFT [facility] Last Admin: 03/31/24 14:06 Dose: Not Given Tramadol HCl (Tramadol Hcl 50 Mg Tablet) 50 mg PO Q4H PRN PRN Reason: Pain, Moderate(Pain Scale 4-6) <Neela Mejia MD - Last Filed: 04/08/24 00:33> Home medications: Home Medications ?Medication ?Instructions ?Recorded ?Confirmed ?Last Taken ?Type bupropion HCl 150 mg tablet,12 hr 150 mg PO DAILY 03/06/21 03/31/24 03/30/24 History sustained-release levothyroxine 25 mcg capsule 12.5 mcg PO DAILY@0600 07/30/23 03/31/24 03/30/24 History topiramate 100 mg tablet (Topamax) 100 mg PO DAILY 07/30/23 03/31/24 03/30/24 History prochlorperazine maleate 10 mg 10 mg PO Q8H PRN nausea/vomiting 03/31/24 03/31/24 Unknown History tablet <Neela Mejia MD - Last Filed: 04/08/24 00:33> Physical Exam 2 Vital Signs: Vital Signs: Last Vital Signs Temp 98 F 03/31/24 13:37 Pulse 98 03/31/24 13:37 Resp 20 03/31/24 13:37 BP 122/81 03/31/24 13:37 Pulse Ox 97 03/31/24 13:37 O2 Del Method Room Air 03/31/24 13:37 BMI result Body Mass Index 37.9 <Neela Mejia MD - Last Filed: 04/08/24 00:33> Const: Other: General: AOx3, no acute distress Resp: CTA bilaterally CVS: S1, S2, RRR GI: hypoactive bowel sounds, BS, mild tenderness lower abd Skin: Warm, dry Extremities: No edema Psych: Appropriate affect <Neela Mejia MD - Last Filed: 04/08/24 00:33> General: No confusion <Neela Mejia MD - Last Filed: 04/08/24 00:33> Orientation/consciousness: No confusion <Neela Mejia MD - Last Filed: 04/08/24 00:33> Neuro: General: No confusion <Neela Mejia MD - Last Filed: 04/08/24 00:33> Results Labs CBC & Chem 7: 04/02/24 05:33 04/02/24 05:33 <Neela Mejia MD - Last Filed: 04/08/24 00:33> Labs: Short CBC 03/31/24 Range/Units 08:03 WBC 16.1 H (4.8-10.8) X10*3/uL Hgb 14.2 (12.0-16.0) g/dl Hct 41.8 (37.0-47.0) % Plt Count 448 H (160-400) X10*3/uL BMP 03/31/24 08:03 Sodium 139 Potassium 3.9 Chloride 109 H Carbon Dioxide 17 L BUN 15 Creatinine 1.24 Calcium 10.0 D Liver Function 03/31/24 Range/Units 08:03 Total Bilirubin 0.3 (0.0-1.0) mg/dL Direct Bilirubin 0.1 (0.0-0.5) mg/dL AST 34 H (5-31) U/L ALT 51 H (0-31) U/L Alkaline Phosphatase 82 (39-117) U/L Albumin 4.4 (3.5-5.0) g/dL <Neela Mejia MD - Last Filed: 04/08/24 00:33> Assessment and Plan (1) Gastroparesis: Status: Chronic <Neela Mejia MD - Last Filed: 04/08/24 00:33> (2) Intractable nausea and vomiting: Status: Acute <Neela Mejia MD - Last Filed: 04/08/24 00:33> 34 YF with idiopathic gastroparesis (diagnosed 6 yrs ago), obesity, new onset type 2 diabetes and cushingoid facies came to [facility] ED on 03/31/24 with abd pain, nausea, projectile vomiting and diarrhea for the past week. Pt reports vomiting 8-9 times since 2 am today, bilious with some blood tinge due to irritation. She has not been able to tolerate anything p.o. since last night. She reports having a solid bowel movement last night followed by severe diarrhea today. No hematochezia or melena. Pt was hospitalized at [facility] 03/20 to 03/23/24 with intractable vomiting, abd pain and diarrhea. Pt was seen by Dr Luna and treated with IV erythromycin with improvement in her symptoms. She noted localized itching at the site of IV injection which resolved after she was given IV benadryl prior to the injection. Previously she was taking semaglutide for wt loss and reports she has not taken this in at least 2 weeks. RECOMMENDATIONS: 1. Agree with IV anti emetics and pain medications 2. Clear liquid diet and advance to low fibre diet once nausea and vomting improves. 3. Start IV erythromycin 250 mg three times a day with IV benadryl x 3 days 4. Nutrition consult for gastroparesis diet 5. Further evaluation with EGD with pyloric balloon dilation and Botox injection. <Neela Mejia MD - Last Filed: 04/08/24 00:33> Procedures Date of Service Date of Service: 04/08/24 <Neela Mejia MD - Last Filed: 04/08/24 00:33> 04/02/24 <Felisha Mcmahon DO - Last Filed: 04/02/24 14:16>
--- NOTE | 2024-03-31 15:18 | MHC.CM.PN ---
PT REPORTS SHE LIVES WITH ROOMMATES AND IS INDEPENDENT WITH CARE SHE HAS NO DME AND NO SERVICES PCP: MARILOU OGDEN HCP DECLINED DCP: HOME NO SERVICES VIA PRIVATE TRANSPORT
[2024-03-31 17:31] VITALS: BP 140/86; PULSE 86; RESP 16; TEMP 36.8; O2SAT 97
[2024-03-31 18:01] VITALS: BMI 37.9
[2024-03-31] MEDS: Erythromycin Lactobionate 250 MG in 0.9 % Sodium Chloride 100 ML 100 MG IV (18:47)
[2024-03-31 18:49] LABS: Appearance Urine Cloudy; Color Urine Yellow; Glucose Urine UA Negative (Negative); Leukocyte Esterase Urine Negative (Negative); Nitrite Urine Negative (Negative); Specific Gravity - Urine >= 1.030 (1.005-1.025); UMIC TRIGGER UACC YES; Urine Blood Moderate (2+) (Negative); Urine Ketones Trace mg/dL (Negative); Urine Pregnancy NEGATIVE (NEGATIVE); Urine Protein Trace mg/dL (Neg-Trace)
[2024-03-31 18:50] LABS: UPreg QC Valid YES
[2024-03-31 18:56] LABS: Amphetamine Screen Urine Not Detected (Not Detect); Barbiturates, Urine Not Detected (Not Detect); Benzodiazepines Screen Urine Not Detected (Not Detect); Buprenorphine Scr Not Detected (Not Detect); Cannabinoid Screen Urine POSITIVE (Not Detect); Cocaine Screen Urine Not Detected (Not Detect); Fentanyl, urine Not Detected (Not Detect); Methadone Screen, Urine Not Detected (Not Detect); Opiate Screen Urine POSITIVE (Not Detect); Oxycodone Screen Urine Not Detected (Not Detect); Phencyclidine Screen Urine Not Detected (Not Detect)
[2024-03-31 19:04] LABS: Bacteria Urine 4+ (None Seen); Hyaline Casts Urine 0-2 /LPF (0-2); Squamous Epithelial Cell Urine >20 /HPF (0-2); UACC Culture Trigger YES
[2024-03-31 20:00] VITALS: BP 140/94; PULSE 83; RESP 20; TEMP 36.6; O2SAT 98
[2024-04-01] MEDS: Lactated Ringers 1,000 ML 100 ML IVCONT ×2 (00:04→14:18)
[2024-04-01 03:53] VITALS: BP 132/68; PULSE 85; RESP 18; TEMP 36.3; O2SAT 98
[2024-04-01] MEDS: Levothyroxine Sodium 25 MCG TABLET 12.5 MCG PO (05:31)
[2024-04-01 06:55] VITALS: BP 122/78; PULSE 78; RESP 16; TEMP 36.8; O2SAT 96
[2024-04-01 07:02] LABS: MANUAL DIFF FLAG NO
[2024-04-01 07:22] LABS: Basophils Percent Auto 0.4 % (0-2); Eosinophils Absolute Auto 0.2 X10*3/uL (0.0-0.4); Eosinophils Percent Auto 2.3 % (0-4); Hematocrit 38.1 % (37.0-47.0); Hemoglobin 12.6 g/dl (12.0-16.0); Imm Gran Abs Auto 0.02 X10*3/uL (0.00-0.03); Imm Gran Pct Auto 0.3 % (0.0-0.4); Lymphocytes Absolute Auto 2.3 X10*3/uL (1.2-4.9); Lymphocytes Percent Auto 33.3 % (20-40); Mean Corpuscular HGB Conc 33.1 g/dl (31.0-35.0); Mean Corpuscular Hemoglobin 29.2 pg (27.0-33.0); Mean Corpuscular Volume 88.2 fL (80.0-98.0); Mean Platelet Volume 10.3 fL (9.4-12.3); Monocytes Absolute Auto 0.4 X10*3/uL (0.1-1.2); Monocytes Percent Auto 6.4 % (2-11); Neutrophils Absolute Auto 3.9 x10*3/uL (2.0-8.3); Neutrophils Percent Auto 57.3 % (45-73); Platelet Count 295 X10*3/uL (160-400); Red Blood Count 4.32 X10*6/uL (4.20-5.50); Red Cell Distribution Width 12.9 % (11.0-16.0); White Blood Count 6.8 X10*3/uL (4.8-10.8)
[2024-04-01] MEDS: diphenhydrAMINE HCL 50 MG/ML VIAL 25 MG IVPUSH ×2 (07:33→16:24)
[2024-04-01] MEDS: Topiramate 100 MG TABLET PO (07:33)
[2024-04-01] MEDS: 0.9 % Sodium Chloride Flush 3 ML SYRINGE IVFLUSH (07:37)
[2024-04-01 07:57] LABS: Glucose, Whole Blood 124 mg/dL (60-115)
[2024-04-01] MEDS: Erythromycin Lactobionate 250 MG in 0.9 % Sodium Chloride 100 ML 100 MG IV ×3 (08:47→16:52)
[2024-04-01] MEDS: ondansetron HCL 4 MG/2 ML VIAL IVPUSH ×3 (09:39→23:21)
[2024-04-01] MEDS: traMADoL HCL 50 MG TABLET PO (09:39)
[2024-04-01 11:21] LABS: Glucose, Whole Blood 117 mg/dL (60-115)
[2024-04-01 12:56] LABS: Blood Urea Nitrogen 14 mg/dL (9-16); Creatinine Clr Calc Pharmacy 77.3; Estimated Glomerular Filt Rate > 60; Glucose Random 109 mg/dL (60-115)
[2024-04-01 13:08] LABS: Anion Gap 12 (12-20); Calcium 8.5 mg/dL (8.4-10.2); Carbon Dioxide 22 mmol/L (22-29); Chloride 110 mmol/L (96-108); Potassium 3.8 mmol/L (3.3-5.1); Sodium 140 mmol/L (135-145)
--- NOTE | 2024-04-01 13:55 | P.PNIM_ITS ---
Subjective Subjective Date of Service: 04/01/24 Interval History: Offers no acute complaints this morning complaining of right upper quadrant pain with radiation to back, no fevers ,no chills, mild nausea, no vomiting, unable to tolerate breakfast this morning, no acute events overnight tolerating IV erythromycin. Review of Systems All other system reviewed and are negative Physical Exam 2 Vital Signs: Vital Signs: Last Vital Signs Temp 98.2 F 04/01/24 06:55 Pulse 78 04/01/24 06:55 Resp 16 04/01/24 06:55 BP 122/78 04/01/24 06:55 Pulse Ox 96 04/01/24 06:55 O2 Del Method Room Air 04/01/24 06:55 BMI result Body Mass Index 37.9 Const: Other: Gen: Awake alert x3, in no acute distress HEENT: sclera anicteric, moist mucus membranes Neck: supple Lungs: clear to auscultation bilaterally Heart: regular rate and rhythm, no murmurs Abd: soft, mild superficial tenderness right upper quadrant to palpation, non- distended, bowel sounds audible Ext: no edema Skin: warm/well-perfused Neuro: no focal findings Psych: appropriate affect Objective Data Active Medications Acetaminophen (Acetaminophen 325 Mg Tablet) 650 mg PO Q6H PRN PRN Reason: Pain, Mild (Pain Scale 1-3), fever or headache Calcium Carbonate (Calcium Carbonate 750 Mg Tab.Chew) 750 mg PO Q4H PRN PRN Reason: Heartburn Diphenhydramine HCl (Diphenhydramine Hcl 50 Mg/Ml Vial) 25 mg IVPUSH Q8H PRN PRN Reason: itching Last Admin: 04/01/24 07:33 Dose: 25 mg Documented By: STEVO Enoxaparin Sodium (Enoxaparin Sodium 40 Mg/0.4 Ml Syringe) 40 mg SUBCUT Q24H [facility] Last Admin: 03/31/24 12:30 Dose: Not Given Documented By: KAILASH Non-Admin Reason: Patient Refused Glucose (Glucose Gel 15 Gm Gel..Gram.) 15 gm PO Q15M PRN; Protocol PRN Reason: per Hypoglycemia Standing Ord. Lactated Ringer's (Lr) 1,000 mls @ 100 mls/hr IVCONT .Q10H [facility] Last Admin: 04/01/24 07:37 Dose: Not Given Documented By: STEVO Non-Admin Reason: IV Running Erythromycin Lactobionate 250 (mg/ Sodium Chloride) 100 mls @ 100 mls/hr IV Q8H [facility] Last Infusion: 04/01/24 09:46 Dose: Infused Documented By: STEVO Dextrose (D10) 250 mls @ 750 mls/hr IV Q15M PRN; Protocol PRN Reason: per Hypoglycemia Standing Ord. Insulin Human Lispro (Insulin Lispro 100 Unit/Ml 3 Ml Vial) 0 unit SUBCUT QIDACHS [facility]; Protocol Last Admin: 04/01/24 12:14 Dose: Not Given Documented By: STEVO Non-Admin Reason: No Insulin Coverage Levothyroxine Sodium (Levothyroxine Sodium 25 Mcg Tablet) 12.5 mcg PO DAILY@0600 [facility] Last Admin: 04/01/24 05:31 Dose: 12.5 mcg Documented By: CASTILM Magnesium Hydroxide (Milk Of Magnesia 30 Ml Oral.Susp) 30 ml PO DAILY PRN PRN Reason: Constipation Melatonin (Melatonin 3 Mg Tablet) 6 mg PO BEDTIME PRN PRN Reason: Insomnia Morphine Sulfate (Morphine Sulfate 4 Mg/Ml Cartridge) 2 mg IVPUSH Q6H PRN; Protocol PRN Reason: Pain, Severe (Pain Scale 7-10) Non-Formulary Medication (Bupropion Hcl) 150 mg PO DAILY [facility] Ondansetron HCl (Ondansetron Hcl 4 Mg/2 Ml Vial) 4 mg IVPUSH Q6H PRN PRN Reason: Nausea and Vomiting Last Admin: 04/01/24 09:39 Dose: 4 mg Documented By: STEVO Sodium Chloride (0.9 % Sodium Chloride Flush 3 Ml Syringe) 3 ml IVFLUSH QSHIFT [facility] Last Admin: 04/01/24 07:37 Dose: 3 ml Documented By: STEVO Topiramate (Topiramate 100 Mg Tablet) 100 mg PO DAILY [facility] Last Admin: 04/01/24 07:33 Dose: 100 mg Documented By: STEVO Tramadol HCl (Tramadol Hcl 50 Mg Tablet) 50 mg PO Q4H PRN PRN Reason: Pain, Moderate(Pain Scale 4-6) Last Admin: 04/01/24 09:39 Dose: 50 mg Documented By: STEVO Labs 04/01/24 06:54 04/01/24 12:11 Labs: Laboratory Results - last 24 hr 03/31/24 04/01/24 04/01/24 18:27 06:54 07:54 MCV 88.2 MCH 29.2 MCHC 33.1 RDW 12.9 Plt Count 295 D MPV 10.3 Immature Gran % (Auto) 0.3 Neut % (Auto) 57.3 Lymph % (Auto) 33.3 [place] % (Auto) 6.4 Eos % (Auto) 2.3 Baso % (Auto) 0.4 Lymph # (Auto) 2.3 [place] # (Auto) 0.4 Eos # (Auto) 0.2 Baso # (Auto) 0.0 Abs Immat Gran (auto) 0.02 Absolute Neuts (auto) 3.9 Absolute Nucleated RBC 0.000 Nucleated RBC % (auto) 0.0 Anion Gap Estim Creat Clear Calc Estimated GFR POC Glucose 124 H Random Glucose Calcium Urine Color Yellow Urine Appearance Cloudy Urine pH 6.0 Ur Specific [place] >= 1.030 H Urine Protein Trace Urine Glucose (UA) Negative Urine Ketones Trace Urine Blood Moderate (2+) H Urine Nitrite Negative Ur Leukocyte Esterase Negative Urine RBC 3-5 H Urine WBC 6-10 H Ur Squamous Epith Cells >20 Urine Bacteria 4+ Hyaline Casts 0-2 Urine Test NEGATIVE Urine Opiates Screen POSITIVE H Ur Buprenorphine Scrn Not Detected Ur Oxycodone Screen Not Detected Urine Methadone Screen Not Detected Urine Fentanyl Screen Not Detected Ur Barbiturates Screen Not Detected Ur Phencyclidine Scrn Not Detected Ur Amphetamines Screen Not Detected U Benzodiazepines Scrn Not Detected Urine Cocaine Screen Not Detected U Marijuana (THC) Screen POSITIVE H 04/01/24 04/01/24 11:11 12:11 MCV MCH MCHC RDW Plt Count MPV Immature Gran % (Auto) Neut % (Auto) Lymph % (Auto) [place] % (Auto) Eos % (Auto) Baso % (Auto) Lymph # (Auto) [place] # (Auto) Eos # (Auto) Baso # (Auto) Abs Immat Gran (auto) Absolute Neuts (auto) Absolute Nucleated RBC Nucleated RBC % (auto) Anion Gap 12 Estim Creat Clear Calc 77.3 Estimated GFR > 60 POC Glucose 117 H Random Glucose 109 Calcium 8.5 D Urine Color Urine Appearance Urine pH Ur Specific [place] Urine Protein Urine Glucose (UA) Urine Ketones Urine Blood Urine Nitrite Ur Leukocyte Esterase Urine RBC Urine WBC Ur Squamous Epith Cells Urine Bacteria Hyaline Casts Urine Test Urine Opiates Screen Ur Buprenorphine Scrn Ur Oxycodone Screen Urine Methadone Screen Urine Fentanyl Screen Ur Barbiturates Screen Ur Phencyclidine Scrn Ur Amphetamines Screen U Benzodiazepines Scrn Urine Cocaine Screen U Marijuana (THC) Screen Microbiology Microbiology Results: Microbiology 03/31/24 19:23 Urine Culture - Preliminary Urine clean catch - Clean Catch Midstream Strep agalactiae (Grp B) 03/31/24 09:54 Blood Culture - Preliminary Blood - Venous No growth after 24 hours. 03/31/24 09:53 Blood Culture - Preliminary Blood - Venous No growth after 24 hours. Assessment and Plan (1) Intractable nausea and vomiting: Status: Acute (2) Gastroparesis: Status: Chronic Plan 34-year-old female with a past medical history significant for idiopathic gastroparesis, new onset type 2 diabetes and cushingoid facies, who was recently discharged for intractable vomiting and gastroparesis on 03/23/24 who returns today with same symptoms. She reports vomiting 8-9 times this morning, bilious with some blood tinge due to irritation. Recurrent acute flare of gastroparesis with nausea and vomiting - nausea vomiting improved, persistent mild nausea, muscular abdominal discomfort due to recurrent vomiting On IV fluids/diabetic diet as tolerated Seen by GI they recommended IV erythromycin 250 t.i.d. with Benadryl 25 mg t.i.d. to avoid itching with erythromycin Can not tolerate metoclopramide therefore place on IV Zofran as needed for nausea. Nutrition consult for gastroparesis diet Dr. Mejia from GI will evaluate for EGD Acute metabolic acidosis due to GI loss resolved Reactive leukocytosis resolved DM2, new-onset - A1c 8.4. 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
[2024-04-01] MEDS: Lidocaine 4 % Patch ADH..PATCH 1 PATCH TRANSDERMA (14:16)
[2024-04-01] MEDS: Morphine Sulfate 4 MG/ML CARTRIDGE 2 MG IVPUSH ×2 (14:17→23:20)
--- NOTE | 2024-04-01 14:49 | MHC.CLN ---
RE; CONSULT SPOKE WITH PT REGARDING GASTROPARESIS, DIET AND NEWLY DIAGNOSED DIABETES HANDOUTS GIVEN -PT'S UNDERSTANDING GOOD RECOMMEND OUT PT RD FOR FOLLOW UP AFTER DISCHARGE-REFERRAL HANDOUT PROVIDED TO PT REVIEWED CARBOHYDRATES, FOODS THAT AFFECT BLOOD SUGARS AND AVOIDING HIGH FAT, HIGH FIBER, ACIDIC FOODS FOR GASTROPARESIS IN ADDITION, TO IMPROVING BLOOD SUGAR CONTROL TO AID IN DIGESTION FOR GASTROPARESIS. PT RECEPTIVE TO DRINKING NUTRITION SUPPLEMENT R/T POOR PO SECONDARY TO GASTROPARESIS AND NOT MEETING ESTIMATED CALORIE NEEDS SEE ALSO TEACHING RECORD
[2024-04-01 15:24] LABS: Glucose, Whole Blood 113 mg/dL (60-115)
[2024-04-01 15:27] VITALS: BP 129/77; PULSE 79; RESP 16; TEMP 36.7; O2SAT 99
[2024-04-01 19:42] VITALS: BP 129/77; PULSE 79; RESP 18; TEMP 36.7; O2SAT 98
[2024-04-01 20:21] LABS: Glucose, Whole Blood 140 mg/dL (60-115)
[2024-04-02] VITALS (9 sets, daily range): BP systolic 110–146; BP diastolic 65–100; PULSE 74–100; RESP 16–18; TEMP 36.1–36.8; O2SAT 95–99
[2024-04-02] MEDS: diphenhydrAMINE HCL 50 MG/ML VIAL 25 MG IVPUSH ×2 (00:19→08:23)
[2024-04-02] MEDS: Lactated Ringers 1,000 ML 100 ML IVCONT (00:22)
[2024-04-02] MEDS: Erythromycin Lactobionate 250 MG in 0.9 % Sodium Chloride 100 ML 100 MG IV ×2 (00:55→08:30)
[2024-04-02] MEDS: Levothyroxine Sodium 25 MCG TABLET 12.5 MCG PO (05:59)
[2024-04-02 06:16] LABS: MANUAL DIFF FLAG NO
[2024-04-02 06:19] LABS: Basophils Percent Auto 0.3 % (0-2); Eosinophils Absolute Auto 0.2 X10*3/uL (0.0-0.4); Eosinophils Percent Auto 2.6 % (0-4); Hematocrit 34.6 % (37.0-47.0); Hemoglobin 11.4 g/dl (12.0-16.0); Imm Gran Abs Auto 0.02 X10*3/uL (0.00-0.03); Imm Gran Pct Auto 0.3 % (0.0-0.4); Lymphocytes Absolute Auto 2.9 X10*3/uL (1.2-4.9); Lymphocytes Percent Auto 43.8 % (20-40); Mean Corpuscular HGB Conc 32.9 g/dl (31.0-35.0); Mean Corpuscular Hemoglobin 29.2 pg (27.0-33.0); Mean Corpuscular Volume 88.7 fL (80.0-98.0); Mean Platelet Volume 9.9 fL (9.4-12.3); Monocytes Absolute Auto 0.3 X10*3/uL (0.1-1.2); Monocytes Percent Auto 4.8 % (2-11); Neutrophils Absolute Auto 3.1 x10*3/uL (2.0-8.3); Neutrophils Percent Auto 48.2 % (45-73); Platelet Count 309 X10*3/uL (160-400); White Blood Count 6.5 X10*3/uL (4.8-10.8)
[2024-04-02 06:32] LABS: Anion Gap 12 (12-20); Blood Urea Nitrogen 11 mg/dL (9-16); Calcium 8.4 mg/dL (8.4-10.2); Carbon Dioxide 20 mmol/L (22-29); Chloride 112 mmol/L (96-108); Creatinine Clr Calc Pharmacy 78.2; Estimated Glomerular Filt Rate > 60; Glucose Random 104 mg/dL (60-115); Potassium 3.6 mmol/L (3.3-5.1); Sodium 140 mmol/L (135-145)
[2024-04-02 07:30] LABS: Glucose, Whole Blood 91 mg/dL (60-115)
[2024-04-02] MEDS: Topiramate 100 MG TABLET PO (08:23)
[2024-04-02] MEDS: buPROPion HCl XL 150 MG TAB.ER.24H PO (09:06)
[2024-04-02 11:38] LABS: Glucose, Whole Blood 96 mg/dL (60-115)
--- NOTE | 2024-04-02 12:43 | MHC.CM.PN ---
Per MD rounds patient not medically cleared for dc. DCP: home self care. CM will continue to follow.
[2024-04-02 13:41] LABS: Glucose, Whole Blood 69 mg/dL (60-115)
--- NOTE | 2024-04-02 13:49 | MHC.SHP ---
Pre-Procedural Eval Section A - 24 Hr Update-Section A only Date of Service: 04/02/24 The patient is an INPATIENT: Yes Changes since office visit: Yes New Medical Problems, Yes Changes in Medication and Yes Patient answered all questions; No Cold of Flu in the past 2 weeks The patient has been examined within 24 hours of the surgical procedure. The History & Physical has been completed within 30 days and I have reviewed it.: Yes Section B - Complete if H&P > 30 days Chief Complaint: gastroparesis flare Allergies: Allergies Allergy/AdvReac Type Severity Reaction Status Date / Time influenza virus vaccine, Allergy Mild UNKNOWN Verified 03/31/24 07:36 specific [FLU VACCINE] doxycycline [DOXYCYCLINE] Allergy Unknown SWELLING Verified 03/31/24 07:36 vancomycin [VANCOMYCIN] Allergy Unknown ANAPHYLAXIS Verified 03/31/24 07:36 erythromycin base Allergy Itching Verified 03/31/24 07:36 metoclopramide [From Reglan] Allergy Unknown Verified 03/31/24 07:36 shellfish Allergy Mild Swelling Uncoded 03/31/24 07:36 Plan Diagnosis/Plan: Unchanged I have reviewed the history and physical and performed a pertinent physical examination on my patient. No changes have occurred unless specified. Time Spent With Patient Time: Total time managing care of this patient today ____ minutes.
--- NOTE | 2024-04-02 14:16 | HO.ANESPROP2 ---
HPI - Anesthesia Eval Consult details Narrative: 34 yo F with gastroparesis admitted with intractable N/V. PMFSH Active Problems Active Problems: All Active Problems Obesity (BMI 35.0-39.9 without comorbidity) (Chronic) Intractable nausea and vomiting (Acute) Gastroparesis (Chronic) Cushingoid facies (Acute) Gastroparesis (Acute) Left ankle sprain (Acute) Low back pain (Acute) Abnormal uterine bleeding (AUB) (Acute) Well woman exam (Acute) Left knee pain (Acute) UTI (urinary tract infection) (Acute) Past Medical History Medical History New onset type 2 diabetes mellitus Cholecystectomy planned Pre-diabetes Lyme disease Osteoarthritis PCOS (polycystic ovarian syndrome) Gastroparesis Functional capacity: independent ambulation Family History Family History Maternal Aunt Breast cancer Family history of problems with anesthesia: No Surgical History Surgical History History of cholecystectomy H/O partial thyroidectomy History of Problems with Anesthesia: Yes (PONV) Social History Social History Household Members: Friend(s) Housing: House Housing Other:: s stairs Do you presently have visiting nurse or other home services: No Unable to assess alcohol history related to: Unknown Alcohol intake: never Patient Tobacco Use Status: Never used Tobacco Second Hand Smoke Exposure: No Use of substances other than those prescribed or required for medical reasons: No Currently Displaying Signs/Symptoms of Drug Intoxication Withdrawal: No Have you been hit, kicked, punched, or otherwise hurt by someone within the past year? If so, by whom?: No Do you feel safe in your current relationship?: Yes Is there a partner from a previous relationship who is making you feel unsafe now?: No Are you made to feel afraid or neglected: No Are you DNR?: No Advance Directives: No Advance Directives Information Provided: Yes Do you have a plan to hurt others: No Plan Recently lost weight without trying: No How much weight loss: 2-13 pounds Eating poorly because of decreased appetite: Yes Nutrition screen score: 2 Nutrition Risks: No Nutritional Risk Patient : No : No Poor oral hygiene: No service: No Current occupational status: employed Meds Allergies Allergy/AdvReac Type Severity Reaction Status Date / Time influenza virus vaccine, Allergy Mild UNKNOWN Verified 03/31/24 07:36 specific [FLU VACCINE] doxycycline [DOXYCYCLINE] Allergy Unknown SWELLING Verified 03/31/24 07:36 vancomycin [VANCOMYCIN] Allergy Unknown ANAPHYLAXIS Verified 03/31/24 07:36 erythromycin base Allergy Itching Verified 03/31/24 07:36 metoclopramide [From Reglan] Allergy Unknown Verified 03/31/24 07:36 shellfish Allergy Mild Swelling Uncoded 03/31/24 07:36 Active Medications: Current Medications Acetaminophen (Acetaminophen 325 Mg Tablet) 650 mg PO Q6H PRN PRN Reason: Pain, Mild (Pain Scale 1-3), fever or headache Bupropion HCl (Bupropion Hcl Xl 150 Mg Tab.Er.24h) 150 mg PO DAILY [facility] Last Admin: 04/02/24 09:06 Dose: 150 mg Calcium Carbonate (Calcium Carbonate 750 Mg Tab.Chew) 750 mg PO Q4H PRN PRN Reason: Heartburn Diphenhydramine HCl (Diphenhydramine Hcl 50 Mg/Ml Vial) 25 mg IVPUSH Q8H PRN PRN Reason: itching Last Admin: 04/02/24 08:23 Dose: 25 mg Enoxaparin Sodium (Enoxaparin Sodium 40 Mg/0.4 Ml Syringe) 40 mg SUBCUT Q24H [facility] Last Admin: 04/02/24 10:33 Dose: Not Given Glucose (Glucose Gel 15 Gm Gel..Gram.) 15 gm PO Q15M PRN; Protocol PRN Reason: per Hypoglycemia Standing Ord. Lactated Ringer's (Lr) 1,000 mls @ 50 mls/hr IVCONT .Q20H [facility] Last Infusion: 04/02/24 00:58 Dose: 50 mls/hr Erythromycin Lactobionate 250 (mg/ Sodium Chloride) 100 mls @ 100 mls/hr IV Q8H [facility] Last Infusion: 04/02/24 09:30 Dose: Infused Dextrose (D10) 250 mls @ 750 mls/hr IV Q15M PRN; Protocol PRN Reason: per Hypoglycemia Standing Ord. Insulin Human Lispro (Insulin Lispro 100 Unit/Ml 3 Ml Vial) 0 unit SUBCUT QIDACHS [facility]; Protocol Last Admin: 04/02/24 11:41 Dose: Not Given Levothyroxine Sodium (Levothyroxine Sodium 25 Mcg Tablet) 12.5 mcg PO DAILY@0600 [facility] Last Admin: 04/02/24 05:59 Dose: 12.5 mcg Magnesium Hydroxide (Milk Of Magnesia 30 Ml Oral.Susp) 30 ml PO DAILY PRN PRN Reason: Constipation Melatonin (Melatonin 3 Mg Tablet) 6 mg PO BEDTIME PRN PRN Reason: Insomnia Morphine Sulfate (Morphine Sulfate 4 Mg/Ml Cartridge) 2 mg IVPUSH Q6H PRN; Protocol PRN Reason: Pain, Severe (Pain Scale 7-10) Last Admin: 04/01/24 23:20 Dose: 2 mg Ondansetron HCl (Ondansetron Hcl 4 Mg/2 Ml Vial) 4 mg IVPUSH Q6H PRN PRN Reason: Nausea and Vomiting Last Admin: 04/01/24 23:21 Dose: 4 mg Sodium Chloride (0.9 % Sodium Chloride Flush 3 Ml Syringe) [facility] Admin: 04/02/24 08:17 Dose: Not Given Topiramate (Topiramate 100 Mg Tablet) 100 mg PO DAILY [facility] Last Admin: 04/02/24 08:23 Dose: 100 mg Tramadol HCl (Tramadol Hcl 50 Mg Tablet) 50 mg PO Q4H PRN PRN Reason: Pain, Moderate(Pain Scale 4-6) Last Admin: 04/01/24 09:39 Dose: 50 mg Home Medications ?Medication ?Instructions ?Recorded ?Confirmed ?Last Taken ?Type bupropion HCl 150 mg tablet,12 hr 150 mg PO DAILY 03/06/21 03/31/24 03/30/24 History sustained-release levothyroxine 25 mcg capsule 12.5 mcg PO DAILY@0600 07/30/23 03/31/24 03/30/24 History topiramate 100 mg tablet (Topamax) 100 mg PO DAILY 07/30/23 03/31/24 03/30/24 History prochlorperazine maleate 10 mg 10 mg PO Q8H PRN nausea/vomiting 03/31/24 03/31/24 Unknown History tablet Exam Exam Date and Time: 04/02/24 1210 Height,Weight and Vital Signs: Height 4 ft 9 in Weight 79.35 kg Last Vital Signs Temp 98.0 F 04/02/24 13:29 Pulse 82 04/02/24 13:29 Resp 18 04/02/24 13:29 BP 126/65 04/02/24 13:29 Pulse Ox 99 04/02/24 13:29 O2 Del Method Room Air 04/02/24 13:29 Pertinent Lab Results Pertinent Lab Results: Laboratory Tests 03/31/24 03/31/24 03/31/24 08:03 09:53 13:06 WBC 16.1 H RBC 4.87 Hgb 14.2 Hct 41.8 MCV 85.8 MCH 29.2 MCHC 34.0 RDW 12.9 Plt Count 448 H MPV 9.7 Immature Gran % (Auto) 0.4 Neut % (Auto) 75.4 H Lymph % (Auto) 18.6 L [place] % (Auto) 4.5 Eos % (Auto) 0.7 Baso % (Auto) 0.4 Lymph # (Auto) 3.0 [place] # (Auto) 0.7 Eos # (Auto) 0.1 Baso # (Auto) 0.1 Abs Immat Gran (auto) 0.06 H Absolute Neuts (auto) 12.1 H Absolute Nucleated RBC 0.000 Nucleated RBC % (auto) 0.0 Sodium 139 Potassium 3.9 Chloride 109 H Carbon Dioxide 17 L Anion Gap 17 BUN 15 Creatinine 1.24 Estim Creat Clear Calc 54.8 Estimated GFR 49 POC Glucose Random Glucose 234 H Lactic Acid 2.4 H* Lactic Acid F/U @ 2Hr 1.6 Calcium 10.0 D Magnesium 1.9 Total Bilirubin 0.3 Direct Bilirubin 0.1 AST 34 H ALT 51 H Alkaline Phosphatase 82 Total Protein 8.0 Albumin 4.4 Lipase 49 Urine Color Urine Appearance Urine pH Ur Specific [place] Urine Protein Urine Glucose (UA) Urine Ketones Urine Blood Urine Nitrite Ur Leukocyte Esterase Urine RBC Urine WBC Ur Squamous Epith Cells Urine Bacteria Hyaline Casts Urine Test Urine Opiates Screen Ur Buprenorphine Scrn Ur Oxycodone Screen Urine Methadone Screen Urine Fentanyl Screen Ur Barbiturates Screen Ur Phencyclidine Scrn Ur Amphetamines Screen U Benzodiazepines Scrn Urine Cocaine Screen U Marijuana (THC) Screen 03/31/24 04/01/24 04/01/24 18:27 06:54 07:54 WBC 6.8 RBC 4.32 Hgb 12.6 Hct 38.1 MCV 88.2 MCH 29.2 MCHC 33.1 RDW 12.9 Plt Count 295 D MPV 10.3 Immature Gran % (Auto) 0.3 Neut % (Auto) 57.3 Lymph % (Auto) 33.3 [place] % (Auto) 6.4 Eos % (Auto) 2.3 Baso % (Auto) 0.4 Lymph # (Auto) 2.3 [place] # (Auto) 0.4 Eos # (Auto) 0.2 Baso # (Auto) 0.0 Abs Immat Gran (auto) 0.02 Absolute Neuts (auto) 3.9 Absolute Nucleated RBC 0.000 Nucleated RBC % (auto) 0.0 Sodium Potassium Chloride Carbon Dioxide Anion Gap BUN Creatinine Estim Creat Clear Calc Estimated GFR POC Glucose 124 H Random Glucose Lactic Acid Lactic Acid F/U @ 2Hr Calcium Magnesium Total Bilirubin Direct Bilirubin AST ALT Alkaline Phosphatase Total Protein Albumin Lipase Urine Color Yellow Urine Appearance Cloudy Urine pH 6.0 Ur Specific [place] >= 1.030 H Urine Protein Trace Urine Glucose (UA) Negative Urine Ketones Trace Urine Blood Moderate (2+) H Urine Nitrite Negative Ur Leukocyte Esterase Negative Urine RBC 3-5 H Urine WBC 6-10 H Ur Squamous Epith Cells >20 Urine Bacteria 4+ Hyaline Casts 0-2 Urine Test NEGATIVE Urine Opiates Screen POSITIVE H Ur Buprenorphine Scrn Not Detected Ur Oxycodone Screen Not Detected Urine Methadone Screen Not Detected Urine Fentanyl Screen Not Detected Ur Barbiturates Screen Not Detected Ur Phencyclidine Scrn Not Detected Ur Amphetamines Screen Not Detected U Benzodiazepines Scrn Not Detected Urine Cocaine Screen Not Detected U Marijuana (THC) Screen POSITIVE H 04/01/24 04/01/24 04/01/24 11:11 12:11 15:20 WBC RBC Hgb Hct MCV MCH MCHC RDW Plt Count MPV Immature Gran % (Auto) Neut % (Auto) Lymph % (Auto) [place] % (Auto) Eos % (Auto) Baso % (Auto) Lymph # (Auto) [place] # (Auto) Eos # (Auto) Baso # (Auto) Abs Immat Gran (auto) Absolute Neuts (auto) Absolute Nucleated RBC Nucleated RBC % (auto) Sodium 140 Potassium 3.8 Chloride 110 H Carbon Dioxide 22 Anion Gap 12 BUN 14 Creatinine 0.88 Estim Creat Clear Calc 77.3 Estimated GFR > 60 POC Glucose 117 H 113 Random Glucose 109 Lactic Acid Lactic Acid F/U @ 2Hr Calcium 8.5 D Magnesium Total Bilirubin Direct Bilirubin AST ALT Alkaline Phosphatase Total Protein Albumin Lipase Urine Color Urine Appearance Urine pH Ur Specific [place] Urine Protein Urine Glucose (UA) Urine Ketones Urine Blood Urine Nitrite Ur Leukocyte Esterase Urine RBC Urine WBC Ur Squamous Epith Cells Urine Bacteria Hyaline Casts Urine Test Urine Opiates Screen Ur Buprenorphine Scrn Ur Oxycodone Screen Urine Methadone Screen Urine Fentanyl Screen Ur Barbiturates Screen Ur Phencyclidine Scrn Ur Amphetamines Screen U Benzodiazepines Scrn Urine Cocaine Screen U Marijuana (THC) Screen 04/01/24 04/02/24 04/02/24 19:45 05:33 07:04 WBC 6.5 RBC 3.90 L Hgb 11.4 L Hct 34.6 L MCV 88.7 MCH 29.2 MCHC 32.9 RDW 13.0 Plt Count 309 MPV 9.9 Immature Gran % (Auto) 0.3 Neut % (Auto) 48.2 Lymph % (Auto) 43.8 H [place] % (Auto) 4.8 Eos % (Auto) 2.6 Baso % (Auto) 0.3 Lymph # (Auto) 2.9 [place] # (Auto) 0.3 Eos # (Auto) 0.2 Baso # (Auto) 0.0 Abs Immat Gran (auto) 0.02 Absolute Neuts (auto) 3.1 Absolute Nucleated RBC 0.000 Nucleated RBC % (auto) 0.0 Sodium 140 Potassium 3.6 Chloride 112 H Carbon Dioxide 20 L Anion Gap 12 BUN 11 Creatinine 0.87 Estim Creat Clear Calc 78.2 Estimated GFR > 60 POC Glucose 140 H 91 Random Glucose 104 Lactic Acid Lactic Acid F/U @ 2Hr Calcium 8.4 Magnesium Total Bilirubin Direct Bilirubin AST ALT Alkaline Phosphatase Total Protein Albumin Lipase Urine Color Urine Appearance Urine pH Ur Specific [place] Urine Protein Urine Glucose (UA) Urine Ketones Urine Blood Urine Nitrite Ur Leukocyte Esterase Urine RBC Urine WBC Ur Squamous Epith Cells Urine Bacteria Hyaline Casts Urine Test Urine Opiates Screen Ur Buprenorphine Scrn Ur Oxycodone Screen Urine Methadone Screen Urine Fentanyl Screen Ur Barbiturates Screen Ur Phencyclidine Scrn Ur Amphetamines Screen U Benzodiazepines Scrn Urine Cocaine Screen U Marijuana (THC) Screen 04/02/24 04/02/24 11:29 13:35 WBC RBC Hgb Hct MCV MCH MCHC RDW Plt Count MPV Immature Gran % (Auto) Neut % (Auto) Lymph % (Auto) [place] % (Auto) Eos % (Auto) Baso % (Auto) Lymph # (Auto) [place] # (Auto) Eos # (Auto) Baso # (Auto) Abs Immat Gran (auto) Absolute Neuts (auto) Absolute Nucleated RBC Nucleated RBC % (auto) Sodium Potassium Chloride Carbon Dioxide Anion Gap BUN Creatinine Estim Creat Clear Calc Estimated GFR POC Glucose 96 69 Random Glucose Lactic Acid Lactic Acid F/U @ 2Hr Calcium Magnesium Total Bilirubin Direct Bilirubin AST ALT Alkaline Phosphatase Total Protein Albumin Lipase Urine Color Urine Appearance Urine pH Ur Specific [place] Urine Protein Urine Glucose (UA) Urine Ketones Urine Blood Urine Nitrite Ur Leukocyte Esterase Urine RBC Urine WBC Ur Squamous Epith Cells Urine Bacteria Hyaline Casts Urine Test Urine Opiates Screen Ur Buprenorphine Scrn Ur Oxycodone Screen Urine Methadone Screen Urine Fentanyl Screen Ur Barbiturates Screen Ur Phencyclidine Scrn Ur Amphetamines Screen U Benzodiazepines Scrn Urine Cocaine Screen U Marijuana (THC) Screen Airway Mallampati Class: II (small mouth opening) TM Dist: >3cm Neck ROM: Full Loose/Missing/Broken Teeth: No (patient denies any loose or broken teeth) Heart: S1S2 Lungs: CTAB Assessment and Plan Assessment Anesthesia Assessment: Anesthesia Plan Discussed and Chart Reviewed Final Anesthetic Review Family History of Problems with Anesthesia: No History of Problems with Anesthesia: Yes (PONV) NPO: Yes ASA Class: III Final Preanesthetic Review: No Changes in Pt Med Stat, Meds/Allgs Chart Reviewed, Consent Obtained/Reviewed and Anes Risks/Benef Reviewed Patient Risk: Intermediate Procedure Risk: Low Anesthetic Plan Anesthetic Plan: GA and Agree w/ Assess. and Plan Disposition: Standard PACU
--- NOTE | 2024-04-02 14:50 | W.PM.OPN ---
Operative Note Operative Note Date of Service: 04/02/24 Narrative: FLEXIBLE TRANSORAL UPPER GASTROINTESTINAL ENDOSCOPY WITH BIOPSIES, PYLORIC BALLOON DILATION AND BOTOX INJECTION Pre-op diagnosis: GERD, Epigastric pain, gastroparesis with nausea and vomiting Post-op diagnosis: GERD, Gastritis, gastroparesis Endoscopist:? Neela Mejia MD Anesthesia:?GA with endotracheal intubation UPPER ENDOSCOPY Consent: Indications for the procedure and potential complications of bleeding, perforation, reaction to medications and missed diagnosis were discussed with the patient and informed consent was obtained. Instrument: Olympus GIF H 190 mid size upper endoscope Monitoring: Vital signs and clinical assessment, continuous EKG monitoring, Pulse oximetry, Carbon Dioxide monitoring and blood pressure monitoring were done throughout the procedure. Procedure: The patient was placed in the left lateral decubitis position and pre-procedure medications were administered and a bite block was placed. The endoscope was inserted into the mouth and advanced under direct vision to the third part of duodenum. A careful inspection was made as the upper endoscope was withdrawn including a retroflexed examination of the proximal stomach; Findings and interventions are described below. Findings: Larynx: ET tube in place Esophagus: GE junction at 33 cms. No esophagitis or Barretts Stomach: No retained food noted in the stomach. Moderate antral erythema - biopsies were obtained from the antrum. Grade 2 flap valve on retroflexed examination of the cardia. Balloon dilation of the pylorus was performed with a 20 mm (60 F) CRE balloon x 60 seconds. Botox was injected into the pylorus 25 U in each quadrant (total of 100 units) Duodenum: Normal bulb and descending duodenum. Biopsies were obtained from 3rd part of the duodenum to check for celiac sprue Intervention: Biopsies, pyloric balloon dilation and botox injection as noted above Impression and Post Procedure Diagnosis: Endoscopy Findings: ESOPHAGUS: Normal STOMACH: Antral gastritis. No retained food in the stomach (last solid meal was 24 hrs prior to the procedure) Balloon dilation of the pylorus was performed with a 20 mm (60 F) CRE balloon x 60 seconds. Botox was injected into the pylorus 25 U in each quadrant (total of 100 units) DUODENUM: Normal - biopsied to check for celiac sprue Plan: Pt has a FU appointment on 05/21/[address] Luna. Pt reports nausea and vomiting has resolved. She can be discharged home on PO erythromycin 250 mg three times a day before meals x 4 weeks and Omeprazole 20 mg PO Q am. She was advised to switch to a blendarized or a liquid diet at the onset of symptoms of nausea and vomiting Above findings were reviewed with the patient and relevant handouts were provided.
--- NOTE | 2024-04-02 15:24 | PM.DS ---
DS: Providers Provider Date of Service: 04/02/24 Date of admission: 03/31/24 11:52 Date of discharge: 04/02/24 Primary care physician: Juan Chou MD Consults: 03/31/24 11:55 Consult to Gastroenterology Routine Consulting Provider: Abby Carrillo Reason for consultation: gastroparesis flare Has provider been notified: No DS: Diagnosis Discharge Diagnosis (1) Gastroparesis: Status: Chronic (2) Intractable nausea and vomiting: Status: Acute DS: Summary Hospital Course Hospital Course: History of presenting illness:: Date of Service: 03/31/24 Attending physician on admission: Sabiha Meyers Chief Complaint: Nausea, vomiting, lower abdominal pain Patient is a 34-year-old female with a past medical history significant for idiopathic gastroparesis, new onset type 2 diabetes and cushingoid facies, who was recently discharged for intractable vomiting and gastroparesis on 03/23/24 who returns today with same symptoms. She reports vomiting 8-9 times this morning, bilious with some blood tinge due to irritation. She has tolerate anything p.o. since last night. Previously she was taking semaglutide but reports she has not taken this in at least 2 weeks. She has been taking Compazine at home which has been helpful however her symptoms have progressively been worsening over the past few days she reports her 1st solid bowel movement last night followed by severe diarrhea today. No hematochezia or melena. She describes chills which occur usually prior to a gastroparesis flare. He also has lower abdominal aching that is traveling upwards and laterally bilaterally. Previously she tried erythromycin for gastroparesis however reports it caused itching therefore she discontinued. She was also recently discharged home with metformin due to a new diagnosis of type 2 diabetes however she reports she has not started this as she was waiting for her endocrinology appointment as she has had worsening gastroparesis in the past with the metformin. Hospital course 34-year-old female with a past medical history significant for idiopathic gastroparesis, new onset type 2 diabetes and cushingoid facies, who was recently discharged for intractable vomiting and gastroparesis on 03/23/24 who returns today with same symptoms. She reports vomiting 8-9 times this morning, bilious with some blood tinge due to irritation and admitted to hospital with following medical issues. Recurrent acute flare of gastroparesis with nausea and vomiting, admitted to medical floor treated with IV fluids, IV erythromycin 250 mg t.i.d. with Benadryl to avoid itching with erythromycin and IV Zofran as needed subsequently patient underwent upper endoscopy by Dr. Mejia that showed mild antral gastritis, no retained food in the stomach, balloon dilatation of the pylorus was performed with a 20 mm 60 [place] CRE balloon times 60 seconds, Botox was injected into the pylorus 25 units in each quadrant, duodenum was biopsied to check for celiac sprue, since patient all symptoms of nausea vomiting has resolved and she is tolerating regular diet she is being discharged home on erythromycin 250 mg t.i.d. before meals, and Prilosec 25 mg daily she is recommended outpatient follow-up with Dr. Carrillo. Acute metabolic acidosis due to GI loss resolved Reactive leukocytosis resolved DM2, new-onset - A1c 8.4. patient declined metformin as prescribed during last hospitalization she wishes to follow up with primary director of early childhood mood disorder continue bupropion, topiramate hypothyroidism continue levothyroxine. Time Attestation Discharge Coordination Time (in mins): 40 Quality: Safe Use of Opioids Does Pt have an Active Cancer Diagnosis on the Problem List?: No Quality: Stroke Does the patient have a stroke diagnosis?: No Physical Exam Vital Signs: Vital Signs: Last Vital Signs Temp 97.4 F 04/02/24 14:58 Pulse 93 04/02/24 15:13 Resp 17 04/02/24 15:13 BP 129/94 H 04/02/24 15:13 Pulse Ox 95 04/02/24 15:13 O2 Del Method Room Air 04/02/24 15:13 O2 Flow Rate 6 04/02/24 15:03 BMI result Body Mass Index 37.9 Const: Other: Gen: Awake alert x3, in no acute distress HEENT: sclera anicteric, moist mucus membranes Neck: supple Lungs: clear to auscultation bilaterally Heart: regular rate and rhythm, no murmurs Abd: soft, nontender, non-distended, bowel sounds audible Ext: no edema Skin: warm/well-perfused Neuro: no focal findings Psych: appropriate affect DS: Data Data Completed and Pending Pending studies at discharge: Pending at discharge 04/02/24 14:45 Surgical [PTH] Routine Labs on day of discharge: Laboratory Results - last 24 hr 04/01/24 04/01/24 04/02/24 15:20 19:45 05:33 WBC 6.5 RBC 3.90 L Hgb 11.4 L Hct 34.6 L MCV 88.7 MCH 29.2 MCHC 32.9 RDW 13.0 Plt Count 309 MPV 9.9 Immature Gran % (Auto) 0.3 Neut % (Auto) 48.2 Lymph % (Auto) 43.8 H [place] % (Auto) 4.8 Eos % (Auto) 2.6 Baso % (Auto) 0.3 Lymph # (Auto) 2.9 [place] # (Auto) 0.3 Eos # (Auto) 0.2 Baso # (Auto) 0.0 Abs Immat Gran (auto) 0.02 Absolute Neuts (auto) 3.1 Absolute Nucleated RBC 0.000 Nucleated RBC % (auto) 0.0 Sodium 140 Potassium 3.6 Chloride 112 H Carbon Dioxide 20 L Anion Gap 12 BUN 11 Creatinine 0.87 Estim Creat Clear Calc 78.2 Estimated GFR > 60 POC Glucose 113 140 H Random Glucose 104 Calcium 8.4 04/02/24 04/02/24 04/02/24 07:04 11:29 13:35 WBC RBC Hgb Hct MCV MCH MCHC RDW Plt Count MPV Immature Gran % (Auto) Neut % (Auto) Lymph % (Auto) [place] % (Auto) Eos % (Auto) Baso % (Auto) Lymph # (Auto) [place] # (Auto) Eos # (Auto) Baso # (Auto) Abs Immat Gran (auto) Absolute Neuts (auto) Absolute Nucleated RBC Nucleated RBC % (auto) Sodium Potassium Chloride Carbon Dioxide Anion Gap BUN Creatinine Estim Creat Clear Calc Estimated GFR POC Glucose 91 96 69 Random Glucose Calcium Preliminary micro results at discharge 03/31/24 09:53 Blood Culture - Preliminary Blood - Venous No growth after 48 hours. 03/31/24 09:54 Blood Culture - Preliminary Blood - Venous No growth after 48 hours. Discharge Plan Discharge Anticipated Discharge Date/Time: 04/02/24 07:26 Patient Disposition: Home, Self-Care Discharge Diagnosis: Gastroparesis Intractable nausea vomiting Referrals: Juan Chou MD [Primary Care Provider] - 1 Week Discharge Medications: New omeprazole 20 mg Capsule,Delayed Release(Dr/Ec) 20 mg PO DAILY@0630 Qty: 90 0RF erythromycin 250 mg tablet 250 mg PO Q8H Qty: 90 0RF Rx Instructions: Take 250 mg 1 tablet 3 times a day with meals Continued bupropion HCl 150 mg tablet sustained-release 12 hr 150 mg PO DAILY prochlorperazine maleate 10 mg tablet 10 mg PO Q8H PRN (Reason: nausea/vomiting) (DME) FreeStyle Lite Strips Strip Qty: 100 0RF Rx Instructions: Test four times a day or as directed. (DME) blood-glucose meter [FreeStyle Lite Meter] Kit Qty: 1 0RF Rx Instructions: As Directed (DME) lancets [FreeStyle Lancets] 28 gauge misc Qty: 100 0RF Rx Instructions: Test four times a day or as directed. topiramate [Topamax] 100 mg tablet 100 mg PO DAILY levothyroxine 25 mcg capsule 12.5 mcg PO DAILY@0600 Discharge Orders: Discharge Order (Routine); Ordered 04/02/24 Ordered By: Sabiha Meyers Diet: Advance to usual diet Activity on Discharge: As tolerated Stand Alone Forms: Patient Portal Discharge page Print Language: Malagasy Care Plan Goals: Take Prilosec 1 tablet at a.m. for gastritis Take erythromycin 1 tablet 3 times a day, before meals, 1 month supply ordered Outpatient follow-up with Dr. Abby CARRILLO on May 21 Followed dietary instruction as per gastroenterology Health Concerns: Diabetes mellitus follow diabetic diet and outpatient follow-up with endocrinology Plan of Treatment: Outpatient follow-up with primary care physician call for appointment Assessment: As above
--- NOTE | 2024-04-02 15:30 | MHC.CM.PN ---
Patient medically cleared for dc home self care via private transport.
== END 2024-04-02 16:24 | disposition home or self-care (01) | DRG 254 ==
LOC: HO.ED 10:59 → HO.EDOVER 12:13 → HO.S3 16:35
PROVIDERS: Internal Medicine Gastroenterology; Physician Assistant; Admitting Provider Physician Assistant; Emergency Provider Emergency Medicine Emergency Medical Services; PCP Internal Medicine; Visit Provider Hospitalist
PROC: 0DJ08ZZ Inspection of Upper Intestinal Tract, Via Natural or Artificial Opening Endoscopic (ICD-10-PCS; CPT 43235; principal; 2024-04-02 14:00)
DX: K31.84 Gastroparesis (principal); E24.9 Cushing's syndrome, unspecified; E87.21 Acute metabolic acidosis; E03.9 Hypothyroidism, unspecified; F39 Unspecified mood [affective] disorder; K29.70 Gastritis, unspecified, without bleeding; E11.9 Type 2 diabetes mellitus without complications; E28.2 Polycystic ovarian syndrome; K21.9 Gastro-esophageal reflux disease without esophagitis; Z79.890 Hormone replacement therapy; Z79.899 Other long term (current) drug therapy
CPT/HCPCS: 36415; 80048; 80076; 80307; 81001; 81025; 82947; 83605; 83690; 83735; 85025; 87040; 87086; 87147; 88305; 88313; 88342; 99285; C1726; J0330; J1100; J1200; J1364; J2003; J2270; J2405; J2704; J3010; J7120

== ENCOUNTER → 2024-03-31 11:52 | Outpatient (BNV) | payer OTHER, SELFPAY | PROVIDERS: Admitting Provider Physician Assistant; Emergency Provider Emergency Medicine Emergency Medical Services; PCP Internal Medicine; Visit Provider Internal Medicine Gastroenterology | DX: K31.84 Gastroparesis (principal); R11.2 Nausea with vomiting, unspecified | CPT/HCPCS: 43236; 43239; 43245; 99232 ==

== ENCOUNTER → 2024-03-31 11:52 | Outpatient (BNV) | payer OTHER, SELFPAY | PROVIDERS: Admitting Provider Physician Assistant; Emergency Provider Emergency Medicine Emergency Medical Services; PCP Internal Medicine; Visit Provider Physician Assistant | DX: K31.84 Gastroparesis (principal); R11.2 Nausea with vomiting, unspecified; E66.9 Obesity, unspecified; Z68.37 Body mass index [BMI] 37.0-37.9, adult | CPT/HCPCS: 99223; 99232; 99239 ==

== ENCOUNTER 2024-04-05 05:46 | Emergency (ER) | payer OTHER, SELFPAY ==
[2024-04-05 05:51] VITALS: BP 139/98; PULSE 94; RESP 16; TEMP 36.7; O2SAT 97; BMI 37.8
[2024-04-05] MEDS: Morphine Sulfate 4 MG/ML CARTRIDGE IVPUSH (06:16)
[2024-04-05] MEDS: LORazepam 2 MG/ML VIAL 1 MG IVPUSH (06:16)
[2024-04-05 06:18] LABS: Basophils Percent Auto 0.3 % (0-2); Eosinophils Absolute Auto 0.1 X10*3/uL (0.0-0.4); Eosinophils Percent Auto 1.1 % (0-4); Hematocrit 36.3 % (37.0-47.0); Hemoglobin 12.2 g/dl (12.0-16.0); Imm Gran Abs Auto 0.16 X10*3/uL (0.00-0.03); Imm Gran Pct Auto 1.3 % (0.0-0.4); Lymphocytes Absolute Auto 2.5 X10*3/uL (1.2-4.9); Lymphocytes Percent Auto 20.8 % (20-40); MANUAL DIFF FLAG NO; Mean Corpuscular HGB Conc 33.6 g/dl (31.0-35.0); Mean Corpuscular Hemoglobin 28.9 pg (27.0-33.0); Mean Platelet Volume 9.6 fL (9.4-12.3); Monocytes Absolute Auto 0.7 X10*3/uL (0.1-1.2); Monocytes Percent Auto 5.8 % (2-11); Neutrophils Absolute Auto 8.6 x10*3/uL (2.0-8.3); Neutrophils Percent Auto 70.7 % (45-73); Platelet Count 386 X10*3/uL (160-400); Red Blood Count 4.22 X10*6/uL (4.20-5.50); Red Cell Distribution Width 12.9 % (11.0-16.0); White Blood Count 12.1 X10*3/uL (4.8-10.8)
[2024-04-05 06:19] VITALS: BP 124/81; PULSE 92; RESP 16; TEMP 36.7; O2SAT 94
[2024-04-05 06:37] LABS: Alanine Aminotransferase 30 U/L (0-31); Albumin Level 3.8 g/dL (3.5-5.0); Alkaline Phosphatase 72 U/L (39-117); Anion Gap 13 (12-20); Aspartate Amino Transferase 20 U/L (5-31); Bilirubin Direct < 0.2 mg/dL (0.0-0.5); Bilirubin Total 0.1 mg/dL (0.0-1.0); Blood Urea Nitrogen 9 mg/dL (9-16); Calcium 8.9 mg/dL (8.4-10.2); Carbon Dioxide 20 mmol/L (22-29); Chloride 108 mmol/L (96-108); Creatinine Clr Calc Pharmacy 64.2; Estimated Glomerular Filt Rate 59; Glucose Random 202 mg/dL (60-115); HCG Quantitative < 2 mIU/mL; Lipase 50 U/L (8-78); Magnesium 1.7 mg/dL (1.6-2.6); Potassium 3.4 mmol/L (3.3-5.1); Sodium 138 mmol/L (135-145); Total Protein 6.8 g/dL (6.5-8.0)
--- NOTE | 2024-04-05 07:16 | ED_ITS ---
HPI - Abdominal Pain General Chief Complaint: Abdominal Pain Stated Complaint: GI flare up Time Seen by Provider: 04/05/24 06:46 Source: patient Mode of arrival: ambulatory Limitations: no limitations History of Present Illness ED Provider: Holly Terry APRN HPI narrative: This is a 34-year-old female who has history of PCOS, idiopathic gastroparesis who has had multiple ER visits and hospitalizations in the last month.? Patient reports that she is taking Compazine and ffoa-nwl-aevyegn Dramamine at home for symptoms.? She has had intermittent abdominal pain with multiple episodes of nonbilious, nonbloody emesis.? She had been doing well for the past few days but last night developed symptoms of diffuse abdominal pain, multiple episodes of vomiting and some diarrhea.? Patient reports she occasionally has diarrhea with her gastroparesis flares.? Of note, patient is followed by Gastroenterology at [facility].? Patient has been seen by Dr. Luna and has a follow-up on May 21.? She did have a endoscopy on 04/02 which showed antral gastritis . During the procedure she had botox injected into the pylorus and she was discharged home on erythromycin 250mg TID x 4 weeks and omeprazole daily.? Patient denies any fever, chills, urinary symptoms, chest pain, shortness of breath, bloody stools.. Related Data Home Medications ?Medication ?Instructions ?Recorded ?Confirmed bupropion HCl 150 mg tablet,12 hr 150 mg PO DAILY 03/06/21 03/31/24 sustained-release levothyroxine 25 mcg capsule 12.5 mcg PO DAILY@0600 07/30/23 03/31/24 topiramate 100 mg tablet (Topamax) 100 mg PO DAILY 07/30/23 03/31/24 prochlorperazine maleate 10 mg 10 mg PO Q8H PRN nausea/vomiting 03/31/24 03/31/24 tablet Previous Rx's ?Medication ?Instructions ?Recorded blood sugar diagnostic (FreeStyle #100 ea 03/23/24 Lite Strips) blood-glucose meter (FreeStyle #1 ea 03/23/24 Lite Meter kit) lancets 28 gauge (FreeStyle #100 ea 03/23/24 Lancets) erythromycin 250 mg tablet 250 mg PO Q8H #90 tabs 04/02/24 omeprazole 20 mg capsule,delayed 20 mg PO DAILY@0630 #90 caps 04/02/24 release prochlorperazine maleate 10 mg 10 mg PO Q8H PRN nausea and 04/05/24 tablet (Compazine) vomiting #20 tabs Allergies Allergy/AdvReac Type Severity Reaction Status Date / Time influenza virus vaccine, Allergy Mild UNKNOWN Verified 04/05/24 05:51 specific [FLU VACCINE] doxycycline [DOXYCYCLINE] Allergy Unknown SWELLING Verified 04/05/24 05:51 vancomycin [VANCOMYCIN] Allergy Unknown ANAPHYLAXIS Verified 04/05/24 05:51 erythromycin base Allergy Itching Verified 04/05/24 05:51 metoclopramide [From Reglan] Allergy Unknown Verified 04/05/24 05:51 shellfish Allergy Mild Swelling Uncoded 04/05/24 05:51 Review of Systems Review of Systems Yes all other systems are reviewed and are negative Constitutional: Reports no additional constitutional complaints, Denies body ache(s), Denies chills, Denies fever(s), Denies headache(s) and Denies weakness Eyes: Reports no additional eye complaints and Denies change in vision Reports system reviewed and no additional complaints, except as documented, Denies dizziness, Denies headache(s), Denies nasal congestion, Denies nasal discharge and Denies neck pain Cardiovascular: Reports no additional cardiovascular complaints, Denies chest pain, Denies leg edema and Denies dyspnea Respiratory: Reports no additional respiratory complaints, Denies cough and Denies dyspnea Gastrointestinal: Reports no additional gastrointestinal complaints, Reports abdominal pain, Reports diarrhea, Reports nausea and Reports vomiting Genitourinary: Reports no additional female genitourinary complaints and Denies urinary incontinence Musculoskeletal: Reports no additional musculoskeletal complaints, Denies back pain, Denies arthralgias, Denies joint swelling, Denies neck pain, Denies numbness and Denies tingling Skin/Breast: Reports system reviewed and no additional complaints, except as docu and Denies rash Reports system reviewed and no additional complaints, except as documented, Denies Abnormal speech present, Denies dizziness, Denies headache(s), Denies numbness, Denies tingling and Denies weakness PMFSH Past Medical History Attestation statement: The following information was validated with the patient. Source: old records reviewed and nursing notes reviewed Medical History New onset type 2 diabetes mellitus Cholecystectomy planned Pre-diabetes Lyme disease Osteoarthritis PCOS (polycystic ovarian syndrome) Gastroparesis Surgical History History of cholecystectomy H/O partial thyroidectomy Family History Family History Maternal Aunt Breast cancer Social History Social History Household Members: Friend(s) Housing: House Housing Other:: s stairs Do you presently have visiting nurse or other home services: No Unable to assess alcohol history related to: Unknown Alcohol intake: never Patient Tobacco Use Status: Never used Tobacco Smoked in Last 30 Days: No Second Hand Smoke Exposure: No Use of substances other than those prescribed or required for medical reasons: No Advance Directives: No Advance Directives Information Provided: Yes Do you have a plan to hurt others: No Plan service: No Current occupational status: employed Physical Exam ED Vital Signs: Vital Signs - 24 hr 04/05/24 05:51 04/05/24 06:19 04/05/24 10:15 Temperature 98.0 F 98.1 F Pulse Rate 94 92 94 Respiratory Rate 16 16 14 Blood Pressure 139/98 H 124/81 118/77 Pulse Oximetry 97 94 98 Oxygen Delivery Method Room Air Room Air Room Air BMI result Body Mass Index 37.8 Const General: cooperative, healthy appearing, comfortable and no acute distress Orientation/consciousness: patient oriented x3 Limitations: no limitations HENMT Head: Yes normal to inspection Ears: hearing grossly normal bilaterally General nose exam: Normal external nose present Face and sinus: Yes normal facial exam Mouth: Normal oral and palatal mucosa present Throat: Yes posterior oropharynx normal Eyes General: appearance normal, both eyes and all related structures Pupils: Equal, round and reactive pupils present Neck Neck: Yes normal visual inspection Chest Chest palpation & inspection: normal inspection of the chest Resp Effort & Inspection: normal respiratory effort Auscultation: clear to auscultation bilaterally Cardio Rate: regular rate Rhythm: regular rhythm Peripheral pulses: Peripheral pulses 2+ throughout GI Inspection: Yes normal to inspection Palpation (GI): Soft to palpation and nontender Auscultation: normal bowel sounds Back/Spine/Pelvis Thoracic/Lumbar Spine: thoracic and lumbar spine normal to inspection Skin General skin exam: no rashes or lesions noted Neuro General: patient oriented x3, no focal motor deficits and normal sensation to monofilament Cranial nerves: Yes Equal, round and reactive pupils present Cognition (Neuro): normal cognition Speech: No Abnormal speech present Gait exam (Neuro): Normal gait present Motor exam (neuro): 5/5 motor strength present throughout Extrem General: Yes normal to inspection Course Course Course Narrative: Patient now tolerating p.o.. Feels improved. Will discharge home with GI follow-up. Reviewed worrisome signs and symptoms of when to return to the emergency room. Comfortable plan for discharge home Medical Decision Making Medical Decision Making [facility] Narrative: 34-year-old female with a history of idiopathic gastroparesis presents to the ER with less than 24 hours of diffuse abdominal pain, multiple episodes of nonbloody, nonbilious vomiting and diarrhea. On exam patient is sleeping, arouses to verbal. Of note, prior to my assessment the patient received 1 dose of morphine and 1 dose lorazepam IV. She reports she is feeling much improved since her arrival. Her abdomen is soft and nondistended. Diffusely tender. Normal bowel sounds. Slightly tacky mucous membranes. Exam otherwise is benign. Will obtain labs, UA, viral test Patient will receive IV fluid Will attempt p.o. trial on reassessment Of note patient had CT imaging on 03/20 which was unremarkable. At this time I doubt acute appendicitis, ovarian torsion, SBO, pancreatitis and will defer imaging at this time. Differential Diagnosis Differential Diagnoses: The differential diagnosis associated with the presentation includes See above Admission/Observation Consideration of admission/observation: Escalation of care including admission/observation considered Now tolerating PO-abdomen soft/nontender, will d/c home with compazine, no need for admission Lab Data MDM Lab Attestation statement: I reviewed the patient's lab results. 04/05/24 06:13 04/05/24 06:13 Labs: Lab Results 04/05/24 04/05/24 04/05/24 Range/Units 06:13 07:32 10:30 WBC 12.1 H (4.8-10.8) X10*3/uL RBC 4.22 (4.20-5.50) X10*6/uL Hgb 12.2 (12.0-16.0) g/dl Hct 36.3 L (37.0-47.0) % MCV 86.0 (80.0-98.0) fL MCH 28.9 (27.0-33.0) pg MCHC 33.6 (31.0-35.0) g/dl RDW 12.9 (11.0-16.0) % Plt Count 386 (160-400) X10*3/uL MPV 9.6 (9.4-12.3) fL Immature Gran % (Auto) 1.3 H (0.0-0.4) % Neut % (Auto) 70.7 (45-73) % Lymph % (Auto) 20.8 (20-40) % [place] % (Auto) 5.8 (2-11) % Eos % (Auto) 1.1 (0-4) % Baso % (Auto) 0.3 (0-2) % Lymph # (Auto) 2.5 (1.2-4.9) X10*3/uL [place] # (Auto) 0.7 (0.1-1.2) X10*3/uL Eos # (Auto) 0.1 (0.0-0.4) X10*3/uL Baso # (Auto) 0.0 (0.0-0.2) X10*3/uL Abs Immat Gran (auto) 0.16 H (0.00-0.03) X10*3/uL Absolute Neuts (auto) 8.6 H (2.0-8.3) x10*3/uL Absolute Nucleated RBC 0.000 (0.0-0.012) X10*3/uL Nucleated RBC % (auto) 0.0 (0.0-0.2) /100WBC Sodium 138 (135-145) mmol/L Potassium 3.4 (3.3-5.1) mmol/L Chloride 108 (96-108) mmol/L Carbon Dioxide 20 L (22-29) mmol/L Anion Gap 13 (12-20) BUN 9 (9-16) mg/dL Creatinine 1.06 (0.5-1.4) mg/dL Estim Creat Clear Calc 64.2 Estimated GFR 59 Random Glucose 202 H (60-115) mg/dL Calcium 8.9 (8.4-10.2) mg/dL Magnesium 1.7 (1.6-2.6) mg/dL Total Bilirubin 0.1 (0.0-1.0) mg/dL Direct Bilirubin < 0.2 (0.0-0.5) mg/dL AST 20 (5-31) U/L ALT 30 (0-31) U/L Alkaline Phosphatase 72 (39-117) U/L Total Protein 6.8 (6.5-8.0) g/dL Albumin 3.8 (3.5-5.0) g/dL Lipase 50 (8-78) U/L Beta HCG, Quant < 2 mIU/mL Urine Color Yellow Urine Appearance Clear Urine pH 7.5 (5.0-9.0) Ur Specific [place] 1.010 (1.005-1.025) Urine Protein Negative (Neg-Trace) mg/dL Urine Glucose (UA) Negative (Negative) mg/dL Urine Ketones Negative (Negative) mg/dL Urine Blood Negative (Negative) Urine Nitrite Negative (Negative) Ur Leukocyte Esterase Negative (Negative) Influenza Type A (PCR) NEGATIVE (Negative) Influenza Type B (PCR) NEGATIVE (Negative) RSV RNA Qual (PCR) NEGATIVE (Negative) SARS-CoV-2 RNA (RT-PCR) NEGATIVE (Negative) External Record Review External record reviewed: Inpatient record and Outside ED record Tests considered The following testing was considered but not selected: See above Medications Administered Discontinued Medications Generic Name Dose Route Start Last Admin Trade Name Freq PRN Reason Stop Dose Admin Sodium Chloride 1,000 mls @ 999 mls/hr 04/05/24 07:09 04/05/24 08:25 Ns IV 04/05/24 08:09 Infused .Q1H1M STA Infusion Lorazepam 1 mg 04/05/24 06:00 04/05/24 06:16 Lorazepam 2 Mg/Ml Vial IVPUSH 04/05/24 06:01 1 mg STAT STA Administration Morphine Sulfate 4 mg 04/05/24 06:00 04/05/24 06:16 Morphine Sulfate 4 Mg/Ml Cartridge IVPUSH 04/05/24 06:01 4 mg ONCE ONE Administration Protocol Discharge Plan Discharge Clinical Impression: Abdominal pain Patient Disposition: Home, Self-Care Instructions: Abdominal Pain (ED) Additional Instructions: Continue to take the medications that were 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 by 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 Take your Compazine as needed Follow-up with your postal service sectional center manager in May as scheduled Return for any worsening symptoms Prescriptions: New prochlorperazine maleate [Compazine] 10 mg tablet 10 mg PO Q8H PRN (Reason: nausea and vomiting) Qty: 20 0RF No Action bupropion HCl 150 mg tablet sustained-release 12 hr 150 mg PO DAILY prochlorperazine maleate 10 mg tablet 10 mg PO Q8H PRN (Reason: nausea/vomiting) omeprazole 20 mg Capsule,Delayed Release(Dr/Ec) 20 mg PO DAILY@0630 Qty: 90 0RF erythromycin 250 mg tablet 250 mg PO Q8H Qty: 90 0RF Rx Instructions: Take 250 mg 1 tablet 3 times a day with meals (DME) FreeStyle Lite Strips Strip Qty: 100 0RF Rx Instructions: Test four times a day or as directed. (DME) blood-glucose meter [FreeStyle Lite Meter] Kit Qty: 1 0RF Rx Instructions: As Directed (DME) lancets [FreeStyle Lancets] 28 gauge misc Qty: 100 0RF Rx Instructions: Test four times a day or as directed. topiramate [Topamax] 100 mg tablet 100 mg PO DAILY levothyroxine 25 mcg capsule 12.5 mcg PO DAILY@0600 Referrals: Juan Chou MD [Primary Care Provider] - 1 week Print Language: [place]
[2024-04-05] MEDS: 0.9 % Sodium Chloride 1,000 ML 999 ML IV (07:19)
[2024-04-05 08:14] LABS: Influenza A PCR NEGATIVE (Negative); Influenza B PCR NEGATIVE (Negative); Resp Syncy Virus RNA Qual PCR NEGATIVE (Negative); SARS COV2 PCR INHOUSE NEGATIVE (Negative)
[2024-04-05 10:15] VITALS: BP 118/77; PULSE 94; RESP 14; O2SAT 98
[2024-04-05 10:41] LABS: Appearance Urine Clear; Color Urine Yellow; Glucose Urine UA Negative (Negative); Leukocyte Esterase Urine Negative (Negative); Nitrite Urine Negative (Negative); PH 7.5 (5.0-9.0); Urine Blood Negative (Negative); Urine Ketones Negative (Negative); Urine Protein Negative (Neg-Trace)
[2024-04-05 11:28] VITALS: BP 118/77; PULSE 94; RESP 14; TEMP 36.7; O2SAT 98
== END 2024-04-05 11:30 | disposition home or self-care (01) ==
PROVIDERS: Emergency Medicine; Nurse Practitioner Family; Emergency Provider Emergency Medicine; PCP Internal Medicine
DX: R10.9 Unspecified abdominal pain (principal); Z03.818 Encounter for observation for suspected exposure to other biological agents ruled out; E11.9 Type 2 diabetes mellitus without complications; Z79.899 Other long term (current) drug therapy
CPT/HCPCS: 0241U; 36415; 80048; 80076; 81003; 83690; 83735; 84702; 85025; 96361; 96374; 96375; 99284; J2060; J2270

== ENCOUNTER 2024-04-15 14:38 | Outpatient (AMB) | payer OTHER, SELFPAY ==
--- NOTE | 2024-04-15 14:41 | A.OFFVIS_ITS ---
Vital Signs 04/15/24 14:44 Height 4 ft 9 in Weight 178 lb 9.191 oz BMI 38.6 Blood Pressure Location Lt brachial Position Sitting Intake Visit Reasons: Consult and Procedure F/U Intake Note: Nila presents in the office as a consult follow up. CC: Seen in the ED. She states Farrar was last done 2014 in [place] - had EGD w/ Botox in ED. She states that she went back to the ED following Sunday after being discharged. Has been vomiting a lot - a couple times in her sleep and states that she has a lot of diarrhea. Toll Settlement Clerk Required: No Allergies influenza virus vaccine, specific [FLU VACCINE] Allergy (Mild, Verified 04/15/24 14:45) UNKNOWN doxycycline [DOXYCYCLINE] Allergy (Unknown, Verified 04/15/24 14:45) SWELLING vancomycin [VANCOMYCIN] Allergy (Unknown, Verified 04/15/24 14:45) ANAPHYLAXIS erythromycin base Allergy (Verified 04/15/24 14:45) Itching metoclopramide [From Reglan] Allergy (Verified 04/15/24 14:45) Unknown shellfish Allergy (Mild, Uncoded 04/15/24 14:45) Swelling HPI Comments Details: 34 year female who carries a dx of idiopathic gastroparesis diagnosed in 2017 who is here post hospitalisation follow up. Pt has been to [facility] multiple times in the last few months. Was seen by me 03/21/[address] Mejia 03/31. 04/02: Had EGD with pyloric balloon dilation and 100u botox inj. Now reports doing much better with acid reflux as well as with tolerating liquids. Still struggling with solids. Tries to eat at least one solid food per day but has bloating and nausea which starts within 10-15 mins of consuming it. Maintaining caloric intake with protein shakes. However feels nutritional content is poor as has started to lose hair. Meds: Taking prilosec 20 Erythromycin 250 TID -- no drug holiday so far. Pt also recently diagnosed with T2DM in the hospital - currently not on any meds at all. Discontinued metformin due to side effects. Checking BG fastin-140. Post prandial: 138-172. Will be seeing Endocrine (Dr Annie Hussein at [facility] [place]) next month. [facility] Medical History New onset type 2 diabetes mellitus Cholecystectomy planned Pre-diabetes Lyme disease Osteoarthritis PCOS (polycystic ovarian syndrome) Gastroparesis Surgical History Hx of colonoscopy History of esophagogastroduodenoscopy (EGD) History of cholecystectomy H/O partial thyroidectomy Family History Maternal Aunt Breast cancer Social History Household Members: Friend(s) Housing: House Housing Other:: s stairs Do you presently have visiting nurse or other home services: No Unable to assess alcohol history related to: Unknown Alcohol intake: never Patient Tobacco Use Status: Never used Tobacco Second Hand Smoke Exposure: No service: No Current occupational status: employed Female Reproductive History Menstrual Age of Menarche: 15 Review of Systems Const All systems reviewed & are unremarkable except as noted in HPI and below Physical Exam Vital Signs: BMI result Body Mass Index 38.6 No apparent distress Nonicteric Abdomen soft, nondistended Alert and oriented x3, normal gait Assessment & Plan Assessment & Plan (1) Gastroparesis: Code(s): K31.84 - Gastroparesis Category: Medical (2) Obesity (BMI 35.0-39.9 without comorbidity): Code(s): E66.9 - Obesity, unspecified Category: Medical (3) Diabetes mellitus with gastroparesis: Code(s): E11.43 - Type 2 diabetes mellitus with diabetic autonomic (poly)neuropathy Category: Medical (4) Restricted diet: Code(s): Z71.3 - Dietary counseling and surveillance Category: Medical (5) Hair loss: Code(s): L65.9 - Nonscarring hair loss, unspecified Category: Medical Plan 1. Idiopathic gastroparesis Diagnosed in 2018 years before developing DM. However now with DM, will need strict glycemic control to avoid delayed gastric emptying 2/2 hyperglycemia. Goal BG <180 post prandial. s/p pyloric dil and botox 04/02/24. Discussed that will take 1-2 more weeks for peek effect to be reached. In the meantime, she is to con dietary measures and erythromycin for mgmt. Plan: - BG control <180 mg/dl post prandial - Small frequent meals - Low fat low fiber diet. - Small particle diet. Liquid diet during a flare. - Erythromycin 250 TID M-. HOLD sat and sun to avoid tachyphylaxis - Repeat GES in 4-8 weeks to assess gastric emptying post interventions outlined above - Pt aware to do this with BG <180, and HOLD compazine, zofran and erythromycin x 3 days prior to testing - Food And Beverage Assistant referral - pt will be contacting [employer] claims manager 2. Hair loss Reviewed that difficult to assess and may eventually need to see Derm. From GI standpoint, will check micronutrients kasi as pt reports being on very limited diet, repeating same foods. Plan: - Labs ordered as below Follow up 2 months Orders: Orders NM gastric emptying study Today E66.9 - Obesity, unspecified, K31.84 - Gastroparesis Ferritin Today L65.9 - Nonscarring hair loss, unspecified, Z71.3 - Dietary counseling and surveillance Vitamin B12 and Folate Today L65.9 - Nonscarring hair loss, unspecified, Z71.3 - Dietary counseling and surveillance Vitamin E Today L65.9 - Nonscarring hair loss, unspecified, Z71.3 - Dietary counseling and surveillance Vitamin K1 Today L65.9 - Nonscarring hair loss, unspecified, Z71.3 - Dietary counseling and surveillance Chromium, Serum Today L65.9 - Nonscarring hair loss, unspecified, Z71.3 - Dietary counseling and surveillance Copper, plasma Today L65.9 - Nonscarring hair loss, unspecified, Z71.3 - Dietary counseling and surveillance Selenium, Serum Today L65.9 - Nonscarring hair loss, unspecified, Z71.3 - Dietary counseling and surveillance Vitamin B1 Today L65.9 - Nonscarring hair loss, unspecified, Z71.3 - Dietary counseling and surveillance IRON PROFILE Today L65.9 - Nonscarring hair loss, unspecified, Z71.3 - Dietary counseling and surveillance Vitamin D 25-OH Total Today L65.9 - Nonscarring hair loss, unspecified, Z71.3 - Dietary counseling and surveillance Vitamin A Today L65.9 - Nonscarring hair loss, unspecified, Z71.3 - Dietary counseling and surveillance Zinc Today L65.9 - Nonscarring hair loss, unspecified, Z71.3 - Dietary counseling and surveillance Coding Level of Care Code Est Pt Level 4 (75068) Complex EM visit Add On G2211 Diagnoses Gastroparesis K31.84 Obesity (BMI 35.0-39.9 without comorbidity) E66.9 Diabetes mellitus with gastroparesis E11.43 Restricted diet Z71.3 Hair loss L65.9
[2024-04-15 14:44] VITALS: BMI 38.6
--- OUTSIDE RECORDS SUMMARY | 2024-04-22 15:00 | XMS_ITS | Continuity of Care Document ---
Author Organization [facility] Address [address] [place] [address] Assessment Encounter Date Assessment Date Assessment LastModified by Organization Details LastModified Time 04/16/2024 04/16/2024 Patient agreed and verbally consents to this audio and video Telehealth appt via a secure platform [email or web address] Not available 04/16/2024 15:39:54 Plan of Treatment Reminders Order Date Submit Date Provider Last Modified By Organization Details Last Modified Time Details Appointments None recorded. Lab None recorded. Referral gynecologis t referral - complex medical patient with PCOS, recent pap smear showing atypical cells, needs [facility] oncology from this reason, is unable to do a biopsy without anesthesia due to severe pain, needs to be put in under SHE CANNOT DO A CONSCIOUS BIOPSY DUE TO THE SEVERE PAIN AND BLEEDING SHE GETSshe was told she would be taken on as patientfour referrals have been sent and confirmed with your officealso has a question of endometrosi s 2023 diomedes Macias MD, [facility] [place], [address], 08:15:10 endocrinolo gy referral 2023 024 diomedes Hussein, [address] [place], [address], 10:20:53 Procedures None recorded. Surgeries None recorded. Imaging None recorded. Medication Orders phentermine 15 mg capsule 2023 024 [id number], [address] [facility], [place], [address], 4 15:39:12 glipizide 5 mg tablet 2023 024 [id number], [address] [facility], [place], [address], 4 15:56:57 Patient TargetsNo targets recorded. Patient InstructionsNo instructions recorded. Reason for Referral [employer] En[employer] Operator Referral for At ypical squamous cells of undetermined significance on cervical Papanicolaou smear fu referral complex medical patient with PCOS, recent pap smear showing atypical cells, needs [facility] oncology from this reason, is unable to do a biopsy without anesthesia due to severe pain, needs to be put in under SHE CANNOT DO A CONSCIOUS BIOPSY DUE TO THE SEVERE PAIN AND BLEEDING SHE GETSshe was told she would be taken on as patientfour referrals have been sent and confirmed with your officealso has a question of endometrosis Referring Physician: Jonna Roman, Internal Medicine, Encounter Date: 04/16/2024 Endocrinology Referral for T ype 2 diabetes mellitus needed specific referral for diabetes Referring Physician: Jonna Roman, Internal Medicine, Encounter Date: 04/16/2024 Results Created Date Observation Date Name Description Value Unit Range Abnormal Flag Note LastModifiedBy Organization Detail LastModifiedTime 03/20/20 24 03/20/2024 CT, abdom en + pelvi s, w/o contr ast No observ ation record ed. [facility] (Medical Records) [address] [place], [address], 03/20/2024 12:14:42 Result Notes None recorded. Problems Name Problem SNOMED Code Status Onset Date Resolution Date Notes Provider Name and Address Organization Details Recorded Time Type 2 diabetes mellitus 07108980 Active 2020 CARON [facility]ALE [facility], [address], [facility] 14:16:53 Polycystic ovary syndrome 937392411 Active 2020 CARON [facility]ALE [address] [facility] [place], [address], [facility] 14:22:59 Gastropares is due to diabetes mellitus 609829576 Active 2020 CARON HALE [address]upesh A, [place], [address], [facility] 14:23:10 Essential hypertensio n 30142216 Active 2020 CARON HALE [address]upesh A, [place], [address], [facility] 14:23:37 Hyperlipide nai 60384045 Active 2020 CARON HALE [address]upesh A, [place], [address], [facility] 14:23:49 Lyme disease 44420612 Active 2020 CARON HALE [address]upesh [address], [place], [address], [facility] 14:38:28 Osteoarthri tis 558257398 Active 2020 CARON HALE [address]esh [address], [place], [address], [facility] 14:38:41 Thyroidecto my Active 2021 [address]esh [address], [place], [address], [facility] 2 16:25:21 Insomnia 512118289 Active 2021 CARON HALE [address]esh [address], [place], [address], [facility] 2 12:29:19 Obesity 147670643 Active 2021 CARON HALE [address]upesh [address], [place], [address], [facility] 2 12:30:19 Uvulitis 270526518 Active 2021 CARON HALE [address]esh [address], [place], [address], [facility] 2 14:30:20 Cough 19060148 Active 2021 CARON HALE [address]esh [address], [place], [address], [facility] 2 14:31:29 Mammography abnormal 619067870 Active 2021 CARON HALE [address]esh [address], [place], [address], [facility] 2 16:26:17 Lesion of breast 250993725 Active 2021 CARON HALE [address]esh [address], [place], [address], [facility] 2 14:01:55 Loss of hair 552902951 Active 2021 CARON HALE [address]esh [address], [place], [address], [facility] 2 11:21:55 Anxiety 77787965 Active 2021 CARON HALE [address]esh [address], [place], [address], [facility] 2 11:24:40 Nausea and vomiting 83979407 Active 2021 CARON HALE [address]esh [address], [place], [address], [facility] 2 11:38:11 Overweight 990035603 Active 2021 CARON HALE [address], [place], [address], [facility] 2 13:03:41 Depressive disorder 56210729 Active 2021 CARON HALE [address], [place], [address], [facility] 2 16:43:10 Chronic cough 51076548 Active 2022 CARON HALE [address]esh A, [facility] [place] [place], [address], [facility] 3 14:37:58 Loss of scalp hair 223697686 Active 2022 CARON HALE [address]esh [address], [facility] [place], [address], [facility] 3 15:43:55 Gastropares is due to type 2 diabetes mellitus 082046279 Active 2022 CARON HALE [address], [facility] [place], [address], [facility] 3 14:20:28 Vesicular eruption 45912285 Active 2022 CARON HALE [address]esh A, [facility] [place], [address], [facility] 3 14:21:08 Staphylococ delores infection of skin 401891205 Active 2022 CARON HALE [address], [facility] [place], [address], [facility] 3 13:15:06 Pain of left knee joint 0843491184213 07 Active [address], [facility], [address], [facility] 4 09:32:19 Degeneratio n of lumbar interverteb ral disc 36290886 Active 2023 CARON HALE [address], [facility] [place], [address], [facility] 4 15:28:33 Pain of left wrist 7977958818173 02 Active 2023 CARON HALE [address], [facility] [place], [address], [facility] 4 09:06:05 Pain of left ankle joint 1623694310905 9103 Active 2023 CARON HALE [address]esh [address], [place], [address], [facility] 4 09:06:20 Metabolic acidosis 41419608 Active 2023 CARON HALE [address], [place], [address], [facility] 4 09:07:02 Atypical squamous cells of undetermine d significanc e on cervical Papanicolao u smear 526771032 Active 2023 CARON HALE [address]esh [address], [place], [address], [facility] 4 15:46:53 Notes:Some problems listed i n Document: #[id number] could not be added to this patient's chart. Please review this document and add these problems to the patient's chart manually as needed. Problem Notes None recorded. Medical Equipment None Reported. Allergies Allergen ID Allergen Name Allergen Category Reaction Reaction Severity Criticality Documentation Date Start Date Code Code System Note Provider Name and Address Organization Details Recorded Time 4899 shellfish derived food,medi cation other mild Not available 02/11/2021 mild facia l swell ing CARON HALE [address]esh [address], [place], [address], [facility] 1 14:16:06 7170 doxycycli ne Not available Not available Not available Not available 01/01/2023 3640 RxNorm CARON HALE [address]esh [address], [place], [address], [facility] 3 14:27:08 7171 vancomyci n medicatio n Not available Not available Not available 01/01/2023 10630 RxNorm CARON HALE [address], [place], [address], [facility] 3 14:27:33 7172 influenza A (H1N1) medicatio n Not available Not available Not available 01/01/2023 CARON HALE [address] [facility],[place], [address], [facility] 3 14:27:46 Medications Name Sig Start Date Stop Date Status Note LastModified by Organization Details LastModified Time freestyle lite blood glucose monito ring system w/device kit active Not Available Not Available Not Available freestyle lancets [facility] active Not Available Not Available Not Available cyclobenza aftab 10 mg tablet TAKE 1 TAB (10MG) BY MOUTH 3 TIMES A DAY NEEDED (MUSCLE SPASM/LILIANA N). 11/22 completed Not Available Not Available Not Available metformin 500 mg tablet Take 1 tablet twice a day by oral route. 02/28 completed Not Available Not Available Not Available bupropion HCl SR 150 mg tablet,12 hr sustained- release TAKE 1 TABLET BY MOUTH EVERY DAY FOR 30 DAYS active Not Available Not Available No t Available cefuroxime axetil 250 mg tablet 12/30 completed Not Available Not Available Not Available azithromyc in 250 mg tablet TAKE 2 TABLETS (500 MG) BY ORAL ROUTE ONCE DAILY FOR 1 DAY THEN 1 TABLET (250 MG) BY ORAL ROUTE ONCE DAILY FOR 4 DAYS 10/11 completed Not Available Not Available Not Available fluconazol e 150 mg tablet TAKE 1 TABLET (150 MG TOTAL) BY MOUTH ONCE FOR 1 DOSE MAY REPEAT IN 3 DAYS IF NEEDED 01/01 completed Not Available Not Available Not Available meloxicam 15 mg tablet Take 1 tablet every day by oral route with meals for 30 days. 10/11 completed Not Available Not Available Not Available FreeStyle Lancets 28 gauge TEST FOUR TIMES A DAY OR DIRECTED. active Not Available Not Available No t Available prednisone 20 mg tablet TAKE 2 TABLETS BY MOUTH EVERY DAY FOR 5 DAYS 02/28 completed Not Available Not Available Not Available phentermin e 15 mg capsule Take 1 capsule every day by oral route for 30 days. 2023 active Not Available Not Available Not Avai lable topiramate 25 mg tablet TAKE 1 TABLET BY MOUTH EVERY DAY FOR 30 DAYS 02/28 completed Not Available Not Available Not Available phentermin e 37.5 mg tablet TAKE 1 TABLET BY MOUTH EVERY DAY DIRECTED 11/22 completed Not Available Not Available Not Available prochlorpe razine maleate 10 mg tablet TAKE 1 TABLET BY MOUTH EVERY 8 HOURS NEEDED FOR NAUSEA AND VOMITING active Not Available Not Available No t Available ondansetro n 8 mg disintegra ting tablet Place 1 tablet twice a day by transling ual route. 01/01 completed Not Available Not Available Not Available levothyrox ine 25 mcg tablet TAKE 1/2 TABLET DAILY BY MOUTH active Not Available Not Available No t Available erythromyc in 250 mg tablet TAKE 1 TABLET BY MOUTH 3 TIMES A DAY WITH MEALS active 5 days on, 3 days off, three times per day Not Available Not Available Not Available amoxicilli n 875 mg tablet TAKE 1 TABLET BY MOUTH EVERY 12 HOURS FOR 14 DAYS 08/27 completed Not Available Not Available Not Available dexamethas one 1 mg tablet TAKE 1 TABLET BY MOUTH ONCE 02/28 completed Not Available Not Available Not Available cephalexin 500 mg capsule TAKE 1 CAPSULE BY MOUTH EVERY 6 HOURS FOR 5 DAYS 08/27 completed Not Available Not Available Not Available lidocaine 5 % topical patch 11/22 completed Not Available Not Available Not Available promethazi ne 25 mg tablet TAKE 1 TAB BY MOUTH EVERY 6 HOURS NEEDED FOR NAUSEA AND VOMITING 11/22 completed Not Available Not Available Not Available omeprazole 20 mg capsule,de layed release TAKE 1 CAPSULE BY MOUTH EVERY DAY AT 0630 active Not Available Not Available No t Available codeine 10 mg-guaifen esin 100 mg/5 mL oral liquid Take 10 mL every 4 hours by oral route as needed for 7 days. 12/30 completed Not Available Not Available Not Available levofloxac in 750 mg tablet Take 1 tablet every day by oral route for 10 days. 08/27 completed Not Available Not Available Not Available zolpidem 10 mg tablet TAKE 1 TABLET BY MOUTH EVERY DAY FOR 30 DAYS 01/01 completed Not Available Not Available Not Available morphine 15 mg immediate release tablet TAKE 1 TABLET BY MOUTH EVERY 6 HOURS NEEDED FOR PAIN 04/16 completed Not Available Not Available Not Available ondansetro n 4 mg disintegra ting tablet 10/18 /2022 completed Not Available Not Available Not Available topiramate 100 mg tablet TAKE 1 TABLET BY MOUTH EVERY DAY DIRECTED active Not Available Not Available No t Available Hibiclens 4 % topical liquid APPLY TOPICALLY EVERY DAY active Not Available Not Available No t Available glipizide 5 mg tablet Take 1 tablet every day by oral route for 30 days. 2023 active Not Available Not Available Not Avai lable bupropion HCl XL 150 mg 24 hr tablet, extended release TAKE 1 TABLET BY MOUTH DAILY 02/28 completed Not Available Not Available Not Available Alcohol Prep Pads 1 PAD TOPICALLY 4 TIMES A DAY BEFORE MEAL/BED USE FOUR TIMES A DAY OR DIRECTED. active Not Available Not Available No t Available topiramate 50 mg tablet TAKE 1 TABLET BY MOUTH EVERY DAY 05/01 completed Not Available Not Available Not Available duloxetine 20 mg capsule,de layed release TAKE 1 CAPSULE BY MOUTH EVERY DAY 01/01 completed Not Available Not Available Not Available zolpidem ER 12.5 mg tablet,ext ended release,mu ltiphase TAKE 1 TABLET BY MOUTH AT BEDTIME NEEDED FOR INSOMNIA 11/22 completed Not Available Not Available Not Available FreeStyle Lite Meter kit DIRECTED active Not Available Not Available No t Available FreeStyle Lite Strips TEST FOUR TIMES A DAY OR DIRECTED. active Not Available Not Available No t Available Jardiance 10 mg tablet 02/28 completed Not Available Not Available Not Available Rybelsus 7 mg tablet TAKE 1 TABLET BY MOUTH EVERY DAY active Not Available Not Available No t Available Paxlovid 300 mg (150 mg x 2)-100 mg tablets in a dose pack TAKE 3 TABLETS BY MOUTH TWICE A DAY FOR 5 DAYS DIRECTED 11/22 completed Not Available Not Available Not Available Vitals None Recorded Social History Question Answer Notes LastModified by Organizat ion Details LastModified Time Tobacco Smoking Status Never Smoker CARON HALE [address] [place] [address], [address], [facility] 01/01/2023 14:05:04 What Was The Date Of Your Most Recent Tobacco Screening? 11/23/2023 [email or web address] Information not available 11/23/2023 Sex: Unknown Functional Status None recorded. Mental Status None recorded. Family History Nothing Reported Notes:breast cancer Medical History No medical history recorded. Gynecological HistoryNo gynecological history recorded. Obstetrics History GPAL:G 0 P 0 0 0 0 Past Encounters Encounter ID Performer Location Encounter Start Date Encounter Closed Date Diagnosis/Indication Diagnosis SNOMED-CT Code Diagnosis ICD10 Code [id number] [facility] [address] [place] [address],[facility] [place] [address] 04/16/2024 09:44:20 04/16/2024 16:00:21 Overweight 964896545 E66.3 Type 2 gladis betes mellitus 92863181 E11.9 Gastropare sis due to type 2 diabetes mellitus 003366729 E11.43 Atypical s quamous cells of undetermined significance on cervical Papanicolaou smear 955848863 R87.610 Health Concerns Section Related Observation LastModified by Organization Detai ls LastModified Time None Recorded Concern Status LastModified by Organization Details LastModified Time None Recorded Payers Encounter Date Sequence Insurance Name Policy Number Policy Lee Covered Member ID Lee Member ID Guarantor Name 04/16/2024 1 [facility] [id number] Nila Wesley [id number] Nila Wesley Notes Date Note Type Note Provider Name and Address Organization Details Recorded Time 04/16/2024 text/html hospital f/u The patient is participating in this appointment via telemedicine communication with a phone call/video calling service ([email or web address])The patient consents to use of these platforms in place of an in-person appointment due to either sick symptoms the patient is presenting with or current office closure due to COVID exposure in order to keep our office staff and patients safe the patient reports she has been in and out of the hospital for the last monththe patient reports they did a pyloplasty and a botox injection into the pyloric sphincter the patient will need to restart the phenterminestart at 15 mg the patient has been seen by [facility] repeat endoscope and emptying studygetting new blood work to check for nutritional def due to the lack of food intake the patient will need additional referral for [facility] gynoncolgystated they need verbal order which they are received currently liquid diet, protein shakeslimited solids on multivitamin currently needs to discuss f/u with endoneeds additional referral for t2dm CARON HALE [address] [facility],[place], [address], [facility] 04/16/2024 15:59:11 OBGyn Episode No OBEpisode recorded.
--- OUTSIDE RECORDS SUMMARY | 2024-04-22 15:00 | XMS_ITS | Data Portability ---
Author Organization [place] [facility],, RACHELL RAYMUNDO MD Address [address] [address] Care Team Providers Care Job Honer Name Role Phone MARILOU OGDEN Primary Care Provider [phone] Assessment No assessment recorded. Plan of Treatment Reminders Order Date Submit Date Provider Last Modified By Organization Details Last Modified Time Details Appointments None recorded. Lab pap test, thinprep, cervical [address] Pathology [facility], Cytopathology Service, [address] [place] [address], [address], 07:26:29 chlamydia sp, culture, unspecifie d specimen 2020 [facility] [place] [address] Pathology [facility], Cytopathology Service, [address] [place] [address], [address], 07:33:03 NG DNA, PCR, genital [address] Pathology [facility], Cytopathology Service, [address] [place] [address], [address], 07:33:03 Referral None recorded. Procedures None recorded. Surgeries None recorded. Imaging US, pelvis, transabdom inal + transvagin al - patient may not be able to tolerate vaginal probe, please proceed with that slowly until she is certain it is tolerableH istory of endometrio sis 2020 [facility] Orders, [address], [address], [place], [address], 20:02:34 Medication Orders None recorded. Patient TargetsNo targets recorded. Patient Instructions Encounter Date Encounter Id Patient Instructions Last Modified By Organization Details Last Modified Time 02/28/2021 [id number] learning about healthy weight [email or web address] Not available 02/28/2021 10:33:21 gastroparesis: care instructions Not available 02/28/2021 10:35:48 endometriosis: care instructions Not available 02/28/2021 10:35:48 learning about control: the shot Not available 02/28/2021 10:35:48 shot for control: care instructions [email or web address] Not available 02/28/2021 10:35:48 She is here as a new patient, for annual exam. She has not seen a manager sourcing doctor since 2017. She has been sexually active only twice in her life, both consensual, but the dyspareunia was too much to bear. She had been diagnosed with PCOS as a teen, she has 4 menses a year spontaneously. She tried various OCP however she notes they bother ed her stomach. she has gastroparesis. She was also presumptively diagnosed with endometriosis, she has had very painful attempts at pap smear in the past, but no one has ever been able to get an adequate pap smear, due to the pain. She has never tried depo provera. Last menses lasted 4 days, Very heavy, painful, LMP was 02/11/21. She was given 10 days of oral provera in the past, I bled so heavy that I had to go to the hospital. 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 Exam and pap are inadequate due to extreme guarding. Blind pap taken. Check pelvic sonogram to assess pelvic organs, and her history of pelvic pain and dyspareunia. We discussed depo provera, she would need to talk to her GI doctor to ensure there was not a concern with her gastroparesis. . She will do so. Written literature given and reviewed. If we cannot use depo provera then an IUD would be useful however it could not be placed without general anesthesia. She appears to be doing well. Monthly self breast exam was taught, and stressed, and is advised to call if she discovers any new mass in the breast. Not available 02/28/2021 11:16:24 Reason for Referral None Reported. Results Created Date Observation Date Name Description Value Unit Range Abnormal Flag Note LastModifiedBy Organization Detail LastModifiedTime 02/29/20 21 02/28/2021 GENER AL5CA SE [id number] Chlam ydia: NEGAT SVITLANA N. gonor rhoea e: NEGAT SVITLANA Compl eted on 03-02 [facility] N: Z12.4 SOURC E: ThinP rep Pap for CT/GC Gross Descr iptio n: ThinP rep Vial Recei maxwell. Physi cians MAVERICK ZHOU/ [phone] Not Available [facility], Cytopathology Service [address] [place], [address], 03/02/2021 14:00:29 02/29/20 21 02/28/2021 PAP1C ASE [id number] ThinP rep Pap, Image d: ATYPI DELORES SQUAM OUS CELLS OF UNDET ERMIN ED SIGNI KATHLEEN CE (ASCU S) . Stephanie da is prese nt. Note: The Pap test is a scree abelino test with an inher ent false negat svitlana rate. Autom ated presc reeni ng of all liqui d based speci mens is perfo rmed by the ThinP rep Imagi ng Syste m ehsan s other [place] d. Jeremiah Hernandez r , CT( CP) (Case Scree shweta 03 18 2021) Mejia gupta M.D. , Patho logis t (Case elect vicky allnina deborah d 03 23 2021) ___ RESUL T OF APTIM A HIGH RISK HPV ASSAY : HIGH RISK HPV: NEGAT SVITLANA (sero types 16,18 ,31,3 3,35, 39,45 ,51,5 2,56, 58,59 ,66,6 8) Compl eted on 03-23 ADEQU ACY: Satis facto ry Endoc ervic al/tr ansfo rmati on zone compo nent prese nt. SOURC E: ThinP rep Pap HPV IF ASCUS , Cervi delores, Image d [facility] N: HPV If Diagn osis of ASCUS . Z12.4 , Z01.4 19, Z11.3 Not Available [facility], Cytopathology Service [address] [place], [address], 03/24/2021 08:02:22 04/01/20 21 04/01/2021 US, pelvi s, trans abdom inal + trans vagin al No observ ation record ed. [facility] [address] [place], [address], 04/04/2021 13:14:53 Result Notes None recorded. Problems Name Problem SNOMED Code Status Onset Date Resolution Date Notes Provider Name and Address Organization Details Recorded Time Endometrio sis (clinical) 206689926 Active 2020 Rachell Raymundo MD [address], [place], [address], [place] [facility], 10:35:02 Gastropare sis syndrome 303468298 Active 2020 Rachell Raymundo MD [address], [place], [address], [place] [facility], 10:35:10 Unable to have sexual intercours e 721597694 Active 2020 cannot tolerate vaginal intercours e, or speculum for pap smear, vaginally Rachell Raymundo MD [address], [place], [address], [place] [facility], 12:41:41 Problem Notes None recorded. Procedures Surgical History Date Name Laterality Status Provider Name and Address Organization Details Recorded Time 02/16/20 15 cholecystectomy completed Chrissy Meczywor [place] [facility], 02/28/2021 10:03:55 02/15/20 11 Unlisted procedure breast completed Chrissy Meczywor [place] - [facility], 02/28/2021 10:03:42 Thyroid Surgery completed Chrissy Meczywor [place] - [facility] [place], 02/28/2021 10:02:43 Imaging Results Imaging Date Name Status LastModified by Organization Details LastModified Time 04/01/2021 US, pelvis, transabdominal + transvaginal completed [id number] [place], [address], 04/04/2021 13:14:53 Procedure Notes None recorded. Medical Equipment None Reported. Allergies Allergen ID Allergen Name Allergen Category Reaction Reaction Severity Criticality Documentation Date Start Date Code Code System Note Provider Name and Address Organization Details Recorded Time 39229 vancomyci n medicatio n anaphylax is Not available Not available 02/28/2021 24023 RxNorm Chrissy Meczywor null, [place] - [facility], 09:55:52 62854 doxycycli ne Not available facial swelling Not available Not available 02/28/2021 3640 RxNorm Chrissy Meczywor null, [place] - [facility], 09:56:07 70942 influenza virus vaccine, specific Not available anaphylax is Not available Not available 02/28/2021 Chrissy Meczywor null, [place] - [facility], 09:56:40 53393 Reglan medicatio n other severe Not available 02/28/2021 9230 RxNorm Chrissy Meczywor null, [place] - [facility], 09:57:06 Medications Name Sig Start Date Stop Date Status Note LastModified by Organization Details LastModified Time bupropion HCl SR 150 mg tablet,12 hr sustained-rel ease active Not Available Not Available Not Available cefuroxime axetil 250 mg tablet active Not Available Not Available Not Available fluconazole 150 mg tablet 02/28 completed Not Available Not Available Not Available zolpidem 10 mg tablet TAKE 1 TABLET BY MOUTH EVERY DAY FOR 30 DAYS active Not Available Not Available No t Available ondansetron 4 mg disintegratin g tablet active Not Available Not Available Not Available Jardiance 10 mg tablet active Not Available Not Available No t Available Vitals Date Recorded Body weight Body mass index (BMI) Body height Body temperature Heart rate Systolic blood pressure Diastolic blood pressure Provider Name and Address Organization Details Last Updated DateTime 1 13082.3 7 g 40.7 kg/m2 144.78 cm 97.4 [degF] 97 /min 132 mm[Hg] 88 mm[Hg] Chrissy Virgen in [facility], 09:55:33 Social History Question Answer Notes LastModified by Organizat ion Details LastModified Time Tobacco Smoking Status Never Smoker DARLENE Chatman in [facility], 02/28/2021 10:01:18 What Is Your Level Of Alcohol Consumption? Occasional Rare Information not available 02/28/2021 How Many Years Have You Consumed Alcohol? 10 Information not available 02/28/2021 What Is Your Level Of Caffeine Consumption? Occasional Information not available 02/28/2021 In The 14 Days Before Symptom Onset, Have You Had Close Contact With A Laboratory-confir med COVID-19 While That Case Was Ill? No Information not available 02/28/2021 In The 14 Days Before Symptom Onset, Have You Had Close Contact With A Person Who Is Under Investigation For COVID-19 While That Person Was Ill? No Information not available 02/28/2021 Have You Been To An Area Known To Be High Risk For COVID-19? No Information not available 02/28/2021 Are You Currently Employed? Yes Information not available 02/28/2021 What Is The Highest Grade Or Level Of School You Have Completed Or The Highest Degree You Have Received? 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 No Information not available 02/28/2021 To Which Gender Do You Self-identify? Female Information not available 02/28/2021 What Was The Date Of Your Most Recent Tobacco Screening? 02/28/2021 Information not available 02/28/2021 What Is Your Relationship Status? Single Information not available 02/28/2021 Are You Sexually Active? No Only Once. Information not available 02/28/2021 Do You Feel Stressed (tense, Restless, Nervous, Or Anxious, Or Unable To Sleep At Night)? [id number] Information not available 02/28/2021 Do You Use Any Illicit Or Recreational Drugs? No Information not available 02/28/2021 Do You Or Have You Ever Used Any Other Forms Of Tobacco Or Nicotine? No Information not available 02/28/2021 How Many Days In The Past Year Have You Consumed 4 Or More Drinks? 0 Information no t available 02/28/2021 Sex: Female Functional Status Question Answer Note LastModified by Organization D etails LastModified Time What is your exercise level? Moderate Information not available 02/28/2021 Mental Status None recorded. Family History Relationship Description Onset Age of this Age Resolved Age Notes LastModified by Organization Details LastModified Time Maternal Aunt Malignant tumor of breast 49 [email or web address] Not available 2020 09:59:03 Maternal Aunt Problem 45 thyroi d cancer tmeczywor Not available 02/28/2021 09:58:56 Father No current problems or disability tmeczywor Not available 02/28 09:59:35 Mother No current problems or disability tmeczywor Not available 02/28 09:59:35 Paternal Grandfather Diabetes mellitus tmeczywor Not available 2020 09:59:49 Medical History Condition Response Anesthesia complications Y High Blood Pressure Y Candidate for MyRisk panel Y Autoimmune Condition N Kidney or Bladder Problems N Thyroid Problems Y GI Problems N Lung Disease N Depression Y Defects or Inherited Disease N History of Ovarian Cancer N Anemia Y History of Breast Cancer N NANCY exposure N BRCA testing in past N Osteopenia N Psychiatric Illness Y Anxiety Disorder Y Diabetes Y Arthritis Y Headaches or Migraines N Infertility N Asthma N History of Cancer N Endometriosis Y Hepatitis N Heart Disease Y Hypertension N Osteoporosis N Gynecological History Statement/Question Response Dysmenorrhea Y Flow Heavy Date of LMP 02/11/2021 Frequency of Cycle (Q days) Menses Monthly N Duration of Flow (days) Age at Menarche 15 Current Control Method None Obstetrics History GPAL:G 0 P 0 0 0 0 Immunizations Vaccine Type Date Status Provider Name and Address Organization Details Recorded Time COVID-19, mRNA, LNP-S, PF, 30 mcg/0.3 mL dose 09/14/2020 completed Chrissy lee [place] [facility], 02/28/2021 09:57:59 Past Encounters Encounter ID Performer Location Encounter Start Date Encounter Closed Date Diagnosis/Indication Diagnosis SNOMED-CT Code Diagnosis ICD10 Code [id number] MD RACHELL Malhotra MD [address] [facility] [address] [place] [address] 02/28/2021 09:44:25 02/28/2021 13:15:24 Specialized medical examination 46762752 Z01.419 Venereal d isease screening 848810533 Z11.3 Pain in pelvis 65558192 R10.2 Gastropare sis syndrome 970547855 K31.84 Endometrio sis (clinical) 154143868 N80.9 Health Concerns Section Related Observation LastModified by Organization Detai ls LastModified Time None Recorded Concern Status LastModified by Organization Details LastModified Time None Recorded Advance Directives Directive None Recorded Payers Encounter Date Sequence Insurance Name Policy Number Policy Lee Covered Member ID Lee Member ID Guarantor Name 02/28/2021 1 [facility] Nila Wesley [id number] Nila Wesley Notes Date Note Type Note Provider Name and Address Organization Details Recorded Time 02/28/2021 text/html She is here as a new patient, for annual exam. She has not seen a manager sourcing doctor since 2017. She has been sexually active only twice in her life, both consensual, but the dyspareunia was too much to bear. She had been diagnosed with PCOS as a teen, she has 4 menses a year spontaneously. She tried various OCP however she notes they bother ed her stomach. she has gastroparesis. She was also presumptively diagnosed with endometriosis, she has had very painful attempts at pap smear in the past, but no one has ever been able to get an adequate pap smear, due to the pain. She has never tried depo provera. Last menses lasted 4 days, Very heavy, painful, LMP was 02/11/21. She was given 10 days of oral provera in the past, I bled so heavy that I had to go to the hospital. 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 Rachell Raymundo MD [address] [facility],[address], [place], [address], [place] [facility], 02/28/2021 12:42:11 OBGyn Episode No OBEpisode recorded.
--- OUTSIDE RECORDS SUMMARY | 2024-04-22 15:00 | XMS_ITS | Data Portability ---
Author Organization [facility] Service Address [address] [place] [phone] Assessment Encounter Date Assessment Date Assessment LastModified by Organization Details LastModified Time 02/28/2022 02/28/2022 Patient agreed and verbally consents to this audio and video Telehealth appt via a secure platform [email or web address] Not available 02/28/2022 11:40:03 04/16/2024 04/16/2024 Patient agreed and verbally consents to this audio and video Telehealth appt via a secure platform [email or web address] Not available 04/16/2024 15:39:54 Plan of Treatment Reminders Order Date Submit Date Provider Last Modified By Organization Details Last Modified Time Details Appointments None recorded. Lab vitamin D, 25-hydroxy , total, serum 2021 [facility], [address] [place] [address], [address], 11:27:54 vitamin B12 + folate, serum or blood 2021 [facility], [address] [place] [address], [address], 11:27:54 iron + total iron-rakan ng capacity (TIBC), serum 2021 [facility], [address] [place] [address], [address], 11:27:54 ferritin, serum or plasma 2021 [facility], [address] [place] [address], [address], 11:27:54 CBC w/ auto diff 2021 [facility], [address] [place] [address], [address], 11:27:54 hemoglobin A1c, QN, blood 2021 [facility], [address] [place] [address], [address], 11:27:54 dhea-sulfa te, serum 2021 [facility], [address] [place] [address], [address], 11:29:08 testostero ne, free + total, serum 2021 [facility], [address] [place] [address], [address], 13:21:37 lh + FSH, serum 2021 [facility], [address] [place] [address], [address], 12:44:18 prolactin, serum 2021 [facility], [address] [place] [address], [address], 11:29:08 estradiol, serum 2021 [facility], [address] [place] [address], [address], 12:03:15 CBC w/ auto diff 2022 023 [facility], [address] [place] [address], [address], 3 14:30:48 ESR (erythrocy te sedimentat ion rate), blood 2022 023 [facility], [address] [place] [address], [address], 3 14:30:49 C-reactive protein, quantitati ve, serum or plasma 2022 023 [facility], [address] [place] [address], [address], 3 14:30:49 C4 (complemen t), serum or plasma 2022 023 [facility], [address] [place] [address], [address], 3 12:16:34 iga Ab, qualitativ e, serum 2022 023 [facility], [address] [place] [address], [address], 3 11:25:15 ige, total, serum 2022 023 [facility], [address] [place] [address], [address], 3 14:30:48 IgM Ab, QL, serum or plasma 2022 023 [facility], [address] [place] [address], [address], 3 14:30:49 culture, wound - stomach wound 2022 023 [facility], [address] [place] [address], [address], 3 12:49:06 vitamin D, 25-hydroxy , total, serum 2022 023 [facility], [address] [place] [address], [address], 3 14:30:49 vitamin B12, serum 2022 023 [facility], [address] [place] [address], [address], 3 14:30:49 folate, serum 2022 023 [facility], [address] [place] [address], [address], 3 14:30:48 TSH + free T4, serum 2022 023 [facility], [address] [place] [address], [address], 3 14:30:49 thyroid peroxidase (tpo) Ab, serum 2022 023 [facility], [address] [place] [address], [place], [address], 3 14:30:48 thyroglobu mike Ab, serum 2022 023 [facility], [address] [place] [address], [place], [address], 3 14:30:48 Referral rheumatolo gist referral 2021 022 [email or web address], [address] [place] [address], [address], 2 08:30:[address] referral 2022 023 [facility], [address] [place] [address] [place], [address], 3 08:18:[address] referral 2023 024 [email or web address] Flori Macias MD, [address] [place], [address], 4 09:16:[address] referral - complex medical patient with PCOS, recent pap smear showing atypical cells, needs [facility] oncology from this reason, is unable to do a biopsy without anesthesia due to severe pain, needs to be put in under SHE CANNOT DO A CONSCIOUS BIOPSY DUE TO THE SEVERE PAIN AND BLEEDING SHE GETSshe was told she would be taken on as patientfou r referrals have been sent and confirmed with your officealso has a question of endometros is 2023 [email or web address] Macias MD, [address] [place], [address], 4 08:15:10 endocrinol ogy referral 2023 024 diomedes Hussein, [address] [place], [address], 4 10:20:53 Procedures None recorded. Surgeries None recorded. Imaging MAMMO, diagnostic , digital, unilateral - continued breast lesion and asymmetry of the right breast, needs to be monitored every 6 mos 2021 [facility], [address] [place] [address], [place], [address], 2 08:38:28 Medication Orders bupropion HCl SR 150 mg tablet,12 hr sustained- release 2021 [facility], [address] [facility], [place], [address], 2 11:26:36 promethazi ne 25 mg tablet 2021 [email or web address], [address] [place], [address], 4 16:28:19 topiramate 100 mg tablet 2021 [facility], [address] [place], [address], 2 16:54:02 phentermin e 15 mg capsule 2021 022 [facility] [address] [place], [address], 3 11:38:17 phentermin e 15 mg capsule 2021 022 [facility], [address] [place], [address], 3 11:38:17 duloxetine 20 mg capsule,de layed release 2021 022 [facility] [address] [place], [address], 3 14:02:51 Hibiclens 4 % topical liquid 2022 023 [facility], [address] [place], [address], 3 14:28:16 cephalexin 500 mg capsule 2022 023 [facility], [address] [place], [address], 4 13:25:36 phentermin e 15 mg capsule 2023 024 [facility], [address] [place], [address], 4 15:39:12 glipizide 5 mg tablet 2023 024 [facility], [address] [place], [address], 4 15:56:57 Patient TargetsNo targets recorded. Patient InstructionsNo instructions recorded. 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 Referral for Ma mmography abnormal PCOS and possible endometrosis Referring Physician: [facility], Encounter Date: 01/01/2023 Plastic Machine Operator Referral for Po lycystic ovary syndrome needs PCP referral Referring Physician: Jonna Ro[facility]n [facility], Encounter Date: 11/23/2023 Plastic Machine Operator Referral for At ypical squamous cells of undetermined significance on cervical Papanicolaou smear fu referral complex medical patient with PCOS, recent pap smear showing atypical cells, needs [facility] oncology from this reason, is unable [...] a question of endometrosis Referring Physician: J[facility], Encounter Date: 04/16/2024 Endocrinology Referral for T ype 2 diabetes mellitus needed specific referral for diabetes Referring Physician: J[facility], Encounter Date: 04/16/2024 Results Created Date Observation Date Name Description Value Unit Range Abnormal Flag Note LastModifiedBy Organization Detail LastModifiedTime 03/13/2003/10/2022 MAMMO , scree abelino, digit al, bilat eral No observ ation record ed. [address] [place], [address], 03/13/2022 09:45:02 03/13/2003/10/2022 jono GARAY No observ ation record ed. [address] [place], [address], 03/13/2022 09:45:15 07/03/19 23 06/28/2022 XR, chest , 2 view No observ ation record ed. [facility] (Medical Records[facility] [address] [facility] [place], [address], 07/04/2022 14:03:04 09/13/19 23 09/12/2022 MAMMO , diagn ostic , digit al, unila teral No observ ation record ed. [address] [place], [address], 09/13/2022 14:13:26 03/08/20 23 03/08/2023 XR, knee No observ ation record ed. [address] (Medical Records) [address] [facility] [place], [address], 03/09/2023 06:40:24 04/03/20 23 04/03/2023 MAMMO , diagn ostic , digit al, unila teral No observ ation record ed. [address] [place], [address], 04/03/2023 14:28:51 06/20/19 24 06/19/2023 MRI, knee, w/ contr ast No observ [email or web address] [address] [place], [address], 06/20/2023 15:51:45 11/05/19 24 10/23/2023 US, pelvi s No observ ation record ed. [email or web address] [place] [address] (Medical Records) [address] [place], [address], 11/05/2023 14:54:50 12/12/19 24 12/12/2023 CT, abdom en + pelvi s, w/o contr ast No observ ation record ed. [facility] (Medical Records) [address] [place], [address], 12/12/2023 08:50:42 03/02/20 24 03/02/2024 XR, lumba r spine , 2 view No observ ation record ed. [email or web address] [facility] (Medical Records) [address] [place], [address], 03/03/2024 09:26:27 03/02/20 24 03/02/2024 XR, wrist + hand No observ ation record ed. [email or web address] (Medical Records) [address] [place], [address], 03/03/2024 09:26:53 03/02/20 24 03/02/2024 XR, ankle No observ ation record ed. [address] (Medical Records) [address] [place], [address], 03/03/2024 09:27:12 03/02/20 24 03/02/2024 XR, knee No observ ation record ed. [email or web address] (Medical Records) [address] [place], [address], 03/03/2024 09:27:30 03/08/20 24 03/08/2024 CT, abdom en + pelvi s, w/o contr ast No observ ation record ed. [facility] (Medical Records) [address] [place], [address], 03/09/2024 10:29:31 03/20/20 24 03/20/2024 CT, abdom en + pelvi s, w/o contr ast No observ ation record ed. [facility] (Medical Records) [address] [place], [address], 03/20/2024 12:14:42 Result Notes None recorded. 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 729957448 Active 2020 CARON HALE [address],Rupesh A, [facility] [place], [address], [facility] 14:23:10 Essential hypertensio n 87097400 Active 2020 CARON HALE [address],Rupesh A, [facility] [place], [address], [facility] 14:23:37 Hyperlipide nai 83745888 Active 2020 CARON HALE [address],Rupesh A, [place], [address], [facility] 14:23:49 Lyme disease 04942680 Active 2020 CARON HALE [address],Rupesh A, [facility] [place], [address], [facility] 14:38:28 Osteoarthri tis 221512618 Active 2020 CARON HALE [address],Rupesh A, [facility] [place], [address], [facility] 14:38:41 Thyroidecto my Active 2021 CARON HALE [address],Rupesh A, [facility] [place], [address], [facility] 2 16:25:21 Insomnia 194917457 Active 2021 CARON HALE [address],Rupesh A, [place], [address], [facility] 2 12:29:19 Obesity 209176006 Active 2021 CARON HALE [address],Rupesh A, [place], [address], [facility] 2 12:30:19 Uvulitis 355613933 Active 2021 CARON HALE [address],Rupesh A, [place], [address], [facility] 2 14:30:20 Cough 99353577 Active 2021 CARON HALE [address],Rupesh A, [place], [address], [facility] 2 14:31:29 Mammography abnormal 577853881 Active 2021 CARON HALE [address],Rupesh A, [place], [address], [facility] 2 16:26:17 Lesion of breast 805043182 Active 2021 CARON HALE [address],Rupesh A, [place], [address], [facility] 2 14:01:55 Loss of hair 476275443 Active 2021 CARON HALE [address],Rupesh A, [place], [address], [facility] 2 11:21:55 Anxiety 46955237 Active 2021 CARON HALE [address],Rupesh A, [place], [address], [facility] 2 11:24:40 Nausea and vomiting 22734457 Active 2021 CARON HALE [address],Rupesh A, [place], [address], [facility] 2 11:38:11 Overweight 392830701 Active 2021 CARON HALE [address],Rupesh A, [place], [address], [facility] 2 13:03:41 Depressive disorder 91661530 Active 2021 CARON HALE [address],Rupesh A, [facility] [place], [address], [facility] 2 16:43:10 Chronic cough 93932095 Active [address]upesh A, [facility] [place], [address], [facility] 3 14:37:58 Loss of scalp hair 472232227 Active 2022 CARON HALE [address],Rupesh A, [facility] [place], [address], [facility] 3 15:43:55 Gastropares is due to type 2 diabetes mellitus 560603756 Active [address]esh A, [place], [address], [facility] 3 14:20:28 Vesicular eruption 16239962 Active 2022 CARON HALE [address],[facility], [place], [address], [facility] 3 14:21:08 Staphylococ delores infection of skin 104057922 Active [address],[facility], [facility] [place], [address], [facility] 3 13:15:06 Pain of left knee joint 5248780418565 07 Active [address]upesh A, [facility] [place], [address], [facility] 4 09:32:19 Degeneratio n of lumbar interverteb ral disc 26048691 Active [address]upesh A, [facility] [place], [address], [facility] 4 15:28:33 Pain of left wrist 3551660931189 02 Active 2023 CARON HALE [address]esh A, [place], [address], [facility] 4 09:06:05 Pain of left ankle joint 1026993493756 9103 Active 2023 CARON HALE [address]esh A, [place], [address], [facility] 4 09:06:20 Metabolic acidosis 92997324 Active 2023 CARON HALE 6 [facility],Rupesh A, [place], [address], [facility] 4 09:07:02 Atypical squamous cells of undetermine d significanc e on cervical Papanicolao u smear 921861682 Active 2023 CARON HALE [address],[place]esh A, [place], [address], [facility] 4 15:46:53 Notes:Some problems listed i n Document: #[id number] could not be added to this patient's chart. Please review this document and add these problems to the patient's chart manually as needed. Problem Notes None recorded. Procedures Surgical History None recorded. Imaging Results Imaging Date Name Status LastModified by Organiz [facility] Details LastModified Time 03/10/2022 MAMMO, screening, digital, bilateral completed [address] [place], [address], 03/13/2022 09:45:02 03/10/2022 US, breast completed [address] [place], [address], 03/13/2022 09:45:15 06/28/2022 XR, chest, 2 view completed [facility] (Medical Records) [address] [place], [place] [address], [address], 07/04/2022 14:03:04 09/12/2022 MAMMO, diagnostic, digital, unilateral completed [address] [place], [address], 09/13/2022 14:13:26 03/08/2023 XR, knee completed [address] (Medical Records) [address] [place], [address], 03/09/2023 06:40:24 04/03/2023 MAMMO, diagnostic, digital, unilateral completed [address] [place], [address], 04/03/2023 14:28:51 06/19/2023 MRI, knee, w/ contrast completed [facility] (Medical Records) [address] [place], [address], 06/20/2023 15:51:45 10/23/2023 US, pelvis completed [address] (Medical Records) [address] [facility] [place], [address], 11/05/2023 14:54:50 12/12/2023 CT, abdomen + pelvis, w/o contrast completed [facility] (Medical Records) [address] [place], [address], 12/12/2023 08:50:42 03/02/2024 XR, lumbar spine, 2 view completed [address] (Medical Records) [address] [place], [address], 03/03/2024 09:26:27 03/02/2024 XR, wrist + hand completed [address] (Medical Records) [address] [place], [address], 03/03/2024 09:26:53 03/02/2024 XR, ankle completed [email or web address] [facility] (Medical Records) [address] [place], [address], 03/03/2024 09:27:12 03/02/2024 XR, knee completed [email or web address] [facility] (Medical Records) [address] [place], [address], 03/03/2024 09:27:30 03/08/2024 CT, abdomen + pelvis, w/o contrast completed [facility] (Medical Records) [address] [place], [address], 03/09/2024 10:29:31 03/20/2024 CT, abdomen + pelvis, w/o contrast completed [facility] (Medical Records) [address] [place], [address], 03/20/2024 12:14:42 Procedure Notes None recorded. Medical Equipment None Reported. Allergies Allergen ID Allergen Name Allergen Category Reaction Reaction Severity Criticality Documentation Date Start Date Code Code System Note Provider Name and Address Organization Details Recorded Time 4899 shellfish derived food,medi cation other mild Not available 02/11/2021 mild facia l swell ing CARON HALE 6 [facility],[place], [address], [facility] 1 14:16:06 7170 doxycycli ne Not available Not available Not available Not available 01/01/2023 3640 RxNorm CARON HALE 6 [facility] [place], [address], [facility] 3 14:27:08 7171 vancomyci n medicatio n Not available Not available Not available 01/01/2023 40028 RxNorm CARON HALE 6 [facility] [place], [address], [facility] 3 14:27:33 7172 influenza A (H1N1) medicatio n Not available Not available Not available 01/01/2023 CARON HALE [address] [place], [address], [facility] 3 14:27:46 Medications Name Sig Start Date Stop Date Status Note LastModified by Organization Details LastModified Time freestyle lite blood glucose monito ring system w/device kit active Not Available Not Available Not Available freestyle lancets misc active Not Available Not Available Not Available [...] ondansetro n 4 mg disintegra ting tablet 02/28 completed Not Available Not Available [...] Not Available Not Available Not Available Vitals Date Recorded Body weight Heart rate Oxygen saturation Oxygen saturation in Arterial blood by Pulse oximetry Provider Name and Address Organization Details Last Updated DateTime 01/01/2023 95010.22 g 102 /min 100 % 100 % CARON HALE 6 [facility], [place], [address] , DARLENE - [facility] 01/01/2023 14:02:25 Date Recorded Body height Body mass index (BMI) Body weight Heart rate Oxygen saturation Oxygen saturation in Arterial blood by Pulse oximetry Systolic blood pressure Diastolic blood pressure Provider Name and Address Organization Details Last Updated DateTime 07/12/202 4 144.78 cm 36.8 kg/m2 53893.7 g 105 /min 98 % 98 % 138 mm[Hg] 80 mm[Hg] Sunday S[facility] 16:29:45 Social History Question Answer Notes LastModified by Organizat ion Details LastModified Time Tobacco Smoking Status Never Smoker CARON HALE [address] [place] [address], [address], [facility] 01/01/2023 14:05:04 What Was The [...] Diagnosis/Indication Diagnosis SNOMED-CT Code Diagnosis ICD10 Code [id number] CARON HALE [facility] [address] [place] [address] 02/11/2021 13:46:00 02/11/2021 15:39:08 Essential hypertension 61048073 I10 Gastropare sis due to diabetes mellitus 234751733 E13.43 Hyperlipidemia 82834518 E78.2 Polycystic ovary syndrome 091874023 E28.2 Type 2 gladis betes mellitus 80750525 E11.9 Mammograph ic mass of right breast 3718082326 5398732 R92.8 Osteoarthritis 308688642 M15.3 Genetic sc reening for disorder 724510795 Z13.71 Fatigue 77192527 R53.83 [id number] CARON HALE [facility] [address] [place] [address] 03/21/2021 08:11:44 03/21/2021 16:21:41 Gastroparesis due to type 2 diabetes mellitus 659611888 E11.43 Nausea and vomiting 1693 2000 R11.2 Diarrhea 47693168 R19.7 Tachycardia 4319946 R00. 0 [id number] CARON HALE [facility] [address] [place] [address] 05/10/2021 09:15:21 05/10/2021 11:28:29 Tear of medial meniscus of knee 295745500 S83.242A [id number] CARON HALE [facility] [address] [place] [address] 06/17/2021 08:20:00 06/20/2021 13:50:14 Panic disorder 322612082 F41.0 Gastropare sis due to type 2 diabetes mellitus 753794451 E11.43 Type 2 gladis betes mellitus 57959426 E11.9 Essential hypertension 34030719 I10 Gastropare sis due to diabetes mellitus 518443904 E13.43 Hyperlipidemia 42782430 E78.2 Insomnia 977279585 G47.0 1 [id number] CARON HALE [facility] [address] [place] [address] 07/22/2021 16:18:01 07/25/2021 16:33:10 Type 2 diabetes mellitus 13587887 E11.9 History of thyroidectomy 795554311 Z90.09 Obesity 367244947 E66.8 [id number] CARON HALE [facility] [address] [place] [address] 10/11/2021 13:34:05 10/11/2021 14:40:37 Uvulitis 216758150 K12.2 Cough 37147032 R05.1 [id number] CARON HALE [facility] [address] [place] [address] 02/28/2022 10:57:02 02/28/2022 13:19:24 Loss of hair 191399837 L63.0 Anxiety 40213006 F41.1 Polycystic ovary syndrome 521492155 E28.2 Osteoarthritis 245460742 M15.3 Lesion of breast 9595455 04 N60.01 Nausea and vomiting 1693 1999 R11.2 [id number] CARON HALE [facility] [address] [place] [address] 05/01/2022 09:36:04 05/01/2022 16:59:18 Type 2 diabetes mellitus 95605463 E11.9 Overweight 117120464 E66 .3 Depressive disorder 3548 9007 F33.9 [id number] CARON HALE [facility] [address] [place] [address] 01/01/2023 13:58:24 01/01/2023 15:32:37 Anxiety 07937770 F41.1 Depressive disorder 3548 9007 F33.9 Type 2 gladis betes mellitus 43752323 E11.9 Gastropare sis due to type 2 diabetes mellitus 722555984 E11.43 Vesicular eruption 05487 008 R23.8 History of thyroidectomy 063503645 Z90.09 Lesion of breast 2129323 04 N60.01 Mammography abnormal 168 215828 R92.8 [id number] CARON HALE [facility] [address] [place] [id number] 0 11/23/2023 16:10:36 11/27/2023 09:16:22 Depression screening 830977675 Z13.31 Polycystic ovary syndrome 212495742 E28.2 Gastropare sis due to type 2 diabetes mellitus 498680043 E11.43 Type 2 gladis betes mellitus 40881031 E11.9 Overweight 463710998 E66 .3 [id number] Eunice Mayer [facility] [address] [place] [address] [phone] 0 04/16/2024 09:44:20 04/16/2024 16:00:21 Overweight 272892647 E66.3 Type 2 gladis betes mellitus 78092869 E11.9 Gastropare sis due to type 2 diabetes mellitus 825580635 E11.43 Atypical s quamous cells of undetermined significance on cervical Papanicolaou smear 367654795 R87.610 Health Concerns Section Related Observation LastModified by Organization Detai ls LastModified Time None Recorded Concern Status LastModified by Organization Details LastModified Time None Recorded Advance Directives Directive None Recorded Payers Encounter Date Sequence Insurance Name Policy Number Policy Lee Covered Member ID Lee Member ID Guarantor Name 02/28/2022 1 [facility] [id number] Nila Wesley [id number] Nila Wesley 05/01/2022 1 [facility] [id number] Nila Wesley [id number] Nila Wesley 01/01/2023 1 [facility] [id number] Nila Kunzskis [id number] Nila Wesley 11/23/2023 1 [facility] [id number] Nila Kunzskis [id number] Nila Wesley 04/16/2024 1 [facility] [id number] Nila Kunzskis [id number] Nila Wesley Notes Date Note Type Note Provider Name and Address Organization Details Recorded Time 2 text/html the patient reports that she has been having the weight gain and hair lossshe is also throwing up in her sleep again, sleeps on her side the patient reports that she is talking to endo about her thyroidwill be testing [facility] [address] [facility] [place], [address], [facility] 02/28/2022 11:40:21 2 text/html f/u medications tele-med video call; realtime audio and visualpatient consents to phone call the patient reports that she did have side effects with both the bupropion and the topimaxis currently on the phentermine, lower dosed wellbutrindoes report her weight did come down but she feels like it is coming back up the patient agreed to increase the topimaxwill trial duloxetinedecrease phenterminestop bupropion will fu in one monthhas a fu with ortho in two days for the MRI results [facility], [place], [address], [facility] 05/01/2022 16:58:49 3 text/html c/o rash rash, vesicles, red base, clear dischargewith gastroparesis hasn't been able to keep her meds down and could be having issues with the generic levomay be more suited toward synthroid will set up with blood work will f/u with patient after work up needs 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 [facility], [place], [address], [facility] 01/01/2023 14:38:36 4 text/html medication f/u avoid zepbound due to h/x of gastroparesishealth ripton won't cover wegovy and is back-ordereddiscussed maybe a short trial of rybelsus will have her try a free sample, monitor how she tolerates it wellwill also work well for her diabetes to control her sugar has f/u with PCOS with [facility] on/obstetrics and gynecology professor who will be doing her procedures now the patient and I discussed other options for the new nerve damage like acupuncture and PTalso discussed possible use of a TENS unit to see if she likes it and will talk about her CARON HALE [address] [facility], [place], [address], [facility] 11/23/2023 17:09:21 4 text/html hospital f/u The patient is participating in this appointment via telemedicine communication with a phone call/video calling service ([employer])The patient consents to use of these platforms [...] mg the patient has been seen by GIhaving repeat endoscope and emptying studygetting new blood work to check for nutritional def due to the lack of food intake the patient will need additional referral for [facility] gynoncolgystated they need verbal order which they are received currently liquid diet, protein shakeslimited solids on multivitamin currently needs to discuss f/u with endoneeds additional referral for t2dm CARON HALE [address] [facility],Rupesh Thomas, [place], [address], [facility] 04/16/2024 15:59:11 OBGyn Episode No OBEpisode recorded.
--- OUTSIDE RECORDS SUMMARY | 2024-04-22 15:01 | XMS_ITS | Patient Health Record ---
Author Organization [facility] Address [address] [place] [address] Care Team Providers Care Paper Ruler Name Role Phone Janny Peoples Primary Care Provider Unavail able Faizan Sierra Jr Unavailable ALLERGIES Allergen (clinical drug ingredient) Drug/Non Drug Allergy documented on EMR Reaction Allergy Type Onset Date Status doxycycline Doxycycline Unknown Drug Allergy Act marvin vancomycin Vancomycin HCl Unknown Drug Allergy A ctive Vaccine product containing Influenza virus antigen (medicinal product) Flu Vaccine (uncoded) Unknown Allergy Active REASON FOR REFERRAL No Information MEDICATIONS Medication SIG (Take, Route, Fr equency, Duration) Notes Start Date End Date Status Tylenol PRN Active Wellbutrin Active metFORMIN HCl 750 mg Active Zofran 4 MG Orally Active Omeprazole 20 MG 1 tablet 30 minutes before morning meal Orally Once a day for 30 day(s) 05/19/2020 Active IMMUNIZATIONS Vaccine Route Administration Date Status Comme nts Influenza Unknown 05/19/2020 Refused SOCIAL HISTORY Tobacco Use: Social History Observation Description Date Details (start date - stop date) Never Smoker NA - NA Sex Assigned At : Social History Observation Description Sex Assigned At Unknown Tobacco Use/Smoking Question Answer Notes Patient is a nonsmoker Alcohol Screen Question Answer Notes Did you have a drink contain ing alcohol in the past year? Yes How often did you have a dri nk containing alcohol in the past year? Monthly or less (1 point) How often did you have 6 or more drinks on one occasion in the past year? Never (0 point) Points 1 Interpretation Negative PROBLEMS Problem Type ICD Code Onset Dates Problem Status W/U Status Risk SNOMED Code Notes Problem Gastroparesis (K31.84) Active confirmed [id number] PLAN OF TREATMENT No Information Insurance Providers Payer Name Payer Address Payer Phone Subscriber Number Group Number Insured Name Patient Relationship to Insured Coverage Start Date Coverage End Date [employer] [address] [place] [phone] [id number] RIGO DIAZ Self - patient is the insured MEDICAL (GENERAL) HISTORY Medical History History ICD Code PCOs - polycystic ovarian syndrome gastroparesis thyroid nodule - partial thyroid removed lyme disease osteoarthritis Surgical History Surgery Date(Month/Year) thyroidectomy - nodule and partial thyro id duct removal - left breast cholecystectomy
== END 2024-04-15 15:48 | disposition home or self-care (01) ==
PROVIDERS: PCP Internal Medicine; Visit Provider Internal Medicine
DX: E11.43 Type 2 diabetes mellitus with diabetic autonomic (poly)neuropathy (principal); K31.84 Gastroparesis; Z71.3 Dietary counseling and surveillance; L65.9 Nonscarring hair loss, unspecified
CPT/HCPCS: 99214

== ENCOUNTER 2024-04-29 16:55 | Outpatient (RCR) | payer OTHER, SELFPAY ==
--- NOTE | 2024-03-28 15:55 | MHC.PT.EP ---
[facility] [place] Office [place] Office [place] Office [address] Julia Sosa [address] [phone] F: [phone] F: [phone] F: [phone] F: [phone] Physical Therapy Plan of Care Date of Evaluation: 03/28/24 Date of Surgery: NA Diagnosis: BACK PAIN, L KNEE PAIN Assessment: Pt IS 34 YO F REFERRED TO PT FROM [facility] (DR KC) WITH BACK PAIN AND L KNEE PAIN. Pt REPORTS ORIGINAL INJURY OCURRED AT WORK FEB 2023 WHEN FELL ONTO KNEE. HAD PT WITH SOME RELIEF. Pt REPORTS NOW COMING TO PT FOR BACK PAIN (WHICH SHE HAS BEEN TOLD CAME FROM HER FALL). Pt ALSO REPORTS SHE HAS HAD FALLS SINCE ORIGINAL INJURY (THE LAST ONE BEING 3 WKS AGO WHEN SHE SPRAINED HER L ANKLE AND HURT HER WRIST). PRESENTS WITH DECREASED CORE STRENGTH WITH PAIN IN LB WITH TTP. SHOULD BENEFIT FROM PT TO HELP WITH OVERALL FLEXIBILITY AND STRENGTH TO HELP WITH PAIN Frequency and Duration: The patient will be seen 2X/WK X 4 WKS Short Term Goals: 1. INCREASED AWARENESS BACK CARE AND POSTURE 2. RETURN TO GYM [employer] Goals: 1. I HEP WITH DC EX PLAN 2. DECREASED BACK PAIN AT LEAST 50% WITH ADLS 3. IMPROVED MOD OSWESTRY ( SOC) Treatment Plan: Modalities to reduce pain, spasms and effusion. Manual therapy to restore motion and function. Therapeutic exercise to improve strength and flexibility. Neuromuscular re-education for posture and balance. Therapeutic activities to return to functional activities of daily living. Electronically signed by: JESUS ALBERTO NAYAK PT Please sign and return to therapist. Thank you for your referral.
--- NOTE | 2024-05-06 12:08 | MHC.PT.DC ---
[facility] [place] [facility] [place] [facility] [place] [facility] [address] Julia Sosa [address] [phone] F: [phone] F: [phone] F: [phone] F: [phone] Physical Therapy Discharge Report Diagnosis: BACK PAIN, L KNEE PAIN Date of Surgery: NA Date of Evaluation: 03/28/24 Date of Discharge: 05/06/24 Treatments to Date: 7 Cancellations to Date: No Shows to Date: Discharge Status: Improved Function Independent with HEP Recommend MD Follow-up Discharge Summary: Pt independent w/HEP. HAS MET SOME PT GOALS Electronically signed by: JESUS ALBERTO STOCKTON PT Please sign and return to therapist. Thank you for your referral.
== END 2024-05-06 12:08 | disposition home or self-care (01) ==
LOC: HO.PT 16:55
PROVIDERS: PCP Internal Medicine; Visit Provider Internal Medicine
DX: M25.562 Pain in left knee (principal); M54.50 Low back pain, unspecified
CPT/HCPCS: 97110; 97140; 97161; 97530; 97535

== ENCOUNTER → 2024-05-29 07:47 | Outpatient (REF) | payer OTHER, SELFPAY ==
--- NOTE | ~2024-05-29 | NM_ITS ---
EXAMINATION: NM RADIONUCLIDE SOLID FOOD GASTRIC EMPTYING 4-HOUR STUDY CLINICAL INFORMATION: Obesity, gastroparesis, nausea and diabetes COMPARISON: None TECHNIQUE: A standard meal consisting of 4 oz of Egg Beaters brand tagged with 0.89 microcuries Tc-99m Sulfur Colloid, 8 oz water and 2 slices of toast with jelly was administered orally to the patient. Images were obtained using a dual head gamma camera in the anterior and posterior projections over of the stomach immediately post ingestion and at hourly intervals up to 4 hours post ingestion. The anterior and posterior counts at each time interval were averaged using the geometric mean and expressed as percentage of the immediate post ingestion counts. FINDINGS: There is good visualization of activity in the stomach immediately post ingestion. As the study progresses, there is good clearance of activity from the stomach and visualization of progressively increasing small bowel activity. By the end of the study, there is almost no retention noted in the stomach. Retention in the stomach at each time interval was: 1 hour 89% (normal 37%-90%) 2 hours 66% (normal 30%-60%) 3 hours 60% 4 hours 31% (normal 0%-10%) NM/NM gastric emptying study IMPRESSION: Abnormal 4-hour solid food gastric emptying study. For solid meal, rapid gastric emptying is less than 30% at 60 minutes. Delayed gastric emptying criteria is more than 60% remaining at 120 minutes or more than 10% at 240 minutes. The 4-hour value is the best discriminator of a normal or abnormal result). Gastric emptying study grading per JNMT Consensus Recommendations in 2008 (https://tech.snmjournals.org/content/36/1/44) Grade 1 (mild retention): 11-20% at 4h Grade 2 (moderate retention): 21-35% at 4h Grade 3 (severe retention): 36-50% at 4h Grade 4 (very severe retention): >50% retention at 4h Electronically signed by: Shorty Howell MD 05/29/2024 03:09 PM [facility]
--- OUTSIDE RECORDS SUMMARY | 2024-05-29 07:50 | XMS_ITS | Data Portability ---
Author Organization [facility], Home Service Address [address] [place] [address] Assessment Encounter Date Assessment Date Assessment LastModified [...] vitamin D, 25-hydroxy , total, serum 2021 [facility], [address] [place] [address], [place], [address], 11:27:54 vitamin B12 + folate, serum or blood 2021 [facility], [address] [place] [address], [address], 11:27:54 iron + total iron-rakan ng capacity (TIBC), serum 2021 [facility], [address] [place] [address], [address], 11:27:54 ferritin, serum or plasma 2021 [facility], [address] [place] [address], [address], 11:27:54 CBC w/ auto diff 2021 [facility], [address] [place] [address], [address], 11:27:54 hemoglobin A1c, QN, blood 2021 [facility], [address] [place] [address], [address], 11:27:54 dhea-sulfa te, serum 2021 [facility], [address] [place] [address], [address], 11:29:08 testostero ne, free + total, serum 2021 [facility], [address] [place] [address], [address], 13:21:37 lh + FSH, serum 2021 [facility], [address] [place] [address], [address], 12:44:18 prolactin, serum 2021 [facility], [address] [place] [address], [address], 11:29:08 estradiol, serum 2021 [facility], [address] [place] [address], [address], 12:03:15 CBC w/ auto diff 2022 023 [facility], [address] [place] [address], [address], 3 14:30:48 ESR (erythrocy te sedimentat ion rate), blood 2022 023 [facility], [address] [place] [address], [address], 3 14:30:49 C-reactive protein, quantitati ve, serum or plasma 2022 023 [facility], [address] [place] [address], [address], 3 14:30:49 C4 (complemen t), serum or plasma 2022 023 [facility], [address] [place] [address], [address], 3 12:16:34 iga Ab, qualitativ e, serum 2022 023 [facility], [address] [place] [address], [address], 3 11:25:15 ige, total, serum 2022 023 [facility], [address] [place] [address], [address], 3 14:30:48 IgM Ab, QL, serum or plasma 2022 023 [facility], [address] [place] [address], [address], 3 14:30:49 culture, wound - stomach wound 2022 023 [facility], [address] [place] [address], [address], 3 12:49:06 vitamin D, 25-hydroxy , total, serum 2022 023 [facility], [address] [place] [address], [address], 3 14:30:49 vitamin B12, serum 2022 023 [facility], [address] [place] [address], [address], 3 14:30:49 folate, serum 2022 023 [facility], [address] [place] [address], [address], 3 14:30:48 TSH + free T4, serum 2022 023 [facility], [address] [place] [address], [address], 3 14:30:49 thyroid peroxidase (tpo) Ab, serum 2022 023 [facility], [address] [place] [address], [address], 3 14:30:48 thyroglobu mike Ab, serum 2022 023 [facility], [address] [place] [address], [address], 3 14:30:48 Referral rheumatolo gist referral 2021 022 [email or web address] 10 [facility], [address] [place] [address], [address], 2 08:30:[address] referral 2022 023 [facility], [address] [place] [address] [place], [address], 3 08:18:[address] referral 2023 024 [email or web address] Flori Macias MD, [address] [place], [address], 4 09:16:[address] referral - complex medical patient with PCOS, recent pap smear showing atypical cells, needs [facility] oncology from this reason, is unable [...] endometros is 2023 diomedes Macias MD, [address] [place], [address], 4 08:15:10 endocrinol ogy referral 2023 diomedes Hussein, [address] [place], [address], 4 10:20:53 Procedures None recorded. Surgeries None recorded. Imaging MAMMO, diagnostic , digital, unilateral - continued breast lesion and asymmetry of the right breast, needs to be monitored every 6 mos 2021 [facility], [address] [facility], [place], [address], 2 08:38:28 Medication Orders bupropion HCl SR 150 mg tablet,12 hr sustained- release 2021 [id number], [address] [facility], [place], [address], 2 11:26:36 promethazi ne 25 mg tablet 2021 [email or web address] [id number], [address] [place], [address], 4 16:28:19 topiramate 100 mg tablet 2021 022 [id number], [address] [place], [address], 2 16:54:02 phentermin e 15 mg capsule 2021 [facility]22 [id number] [address] [place], [address], 3 11:38:17 phentermin e 15 mg capsule 2021 022 [facility], [address] [place], [address], 3 11:38:17 duloxetine 20 mg capsule,de layed release 2021 022 [id number] [address] [place], [address], 3 14:02:51 Hibiclens 4 % topical liquid 2022 023 [facility], [address] [place], [address], 3 14:28:16 cephalexin 500 mg capsule 2022 023 [facility], [address] [place], [address], 4 13:25:36 phentermin e 15 mg capsule 2023 024 [id number], [address] [place], [address], 4 15:39:12 glipizide 5 mg tablet 2023 024 [id number], [address] [place], [address], 4 15:56:57 Patient TargetsNo targets recorded. Patient InstructionsNo instructions recorded. Reason for Referral Client Liaison Referral for Osteoarthritis worsening arthritis pain (Multiple chronic referrals) Referring Physician: [facility], Encounter Date: 02/28/2022 [employer] Referral for Ma mmography abnormal PCOS and possible endometrosis Referring Physician: [facility], Encounter Date: 01/01/2023 [employer] Referral for Po lycystic ovary syndrome needs PCP referral Referring Physician: [facility], Encounter Date: 11/23/2023 [employer] Referral for At ypical squamous cells of undetermined significance on cervical Papanicolaou smear fu referral complex medical patient with PCOS, recent pap smear showing atypical cells, needs [facility] oncology from this reason, is unable [...] bilat eral No observ ation record ed. [address] [place], [address], 03/13/2022 09:45:02 03/13/20 22 03/10/2022 jono GARAY No observ ation record ed. [address] [place], [address], 03/13/2022 09:45:15 07/03/19 23 06/28/2022 XR, chest , 2 view No observ ation record ed. [facility] (Medical Records) [address] [place], [address], 07/04/2022 14:03:04 09/13/19 23 09/12/2022 MAMMO , diagn ostic , digit al, unila teral No observ ation record ed. [address] [place], [address], 09/13/2022 14:13:26 03/08/20 23 03/08/2023 XR, knee No observ ation record ed. [address] (Medical Records) [address] [place], [address], 03/09/2023 06:40:24 04/03/20 23 04/03/2023 MAMMO , diagn ostic , digit al, unila teral No observ ation record ed. [address] [place], [address], 04/03/2023 14:28:51 06/20/19 24 06/19/2023 MRI, knee, w/ contr ast No observ [facility]ion [facility] ed. [email or web address] [address] [place], [address], 06/20/2023 15:51:45 11/05/19 24 10/23/2023 US, pelvi s No observ ation record ed. [email or web address] [facility] (Medical Records) [address] [place], [address], 11/05/2023 14:54:50 12/12/19 24 12/12/2023 CT, abdom en + pelvi s, w/o contr ast No observ ation record ed. [facility] (Medical Records) [address] [place], [address], 12/12/2023 08:50:42 03/02/20 24 03/02/2024 XR, lumba r spine , 2 view No observ ation record ed. [email or web address] [facility] (Medical Records) [address] [place], [address], 03/03/2024 09:26:27 03/02/20 24 03/02/2024 XR, wrist + hand No observ ation record ed. [facility]9 [facility] (Medical Records) [address] [place], [address], 03/03/2024 09:26:53 03/02/20 24 03/02/2024 XR, ankle No observ ation record ed. [facility]9 [facility] (Medical Records) [address] [place], [address], 03/03/2024 09:27:12 03/02/20 24 03/02/2024 XR, knee No observ ation record ed. [email or web address] [facility] (Medical Records) [address] [place], [address], 03/03/2024 09:27:30 03/08/2003/08/2024 CT, abdom en + pelvi s, w/o contr ast No observ ation record ed. [facility] (Medical Records) [address] [place], [address], 03/09/2024 10:29:31 03/20/20 24 03/20/2024 CT, abdom en + pelvi s, w/o contr ast No observ ation record ed. [facility] (Medical Records) [address] [place], [address], 03/20/2024 12:14:42 Result Notes None recorded. Problems Name Problem SNOMED Code Status Onset Date Resolution Date Notes Provider Name and Address Organization Details Recorded Time Type 2 diabetes mellitus 25286299 Active 2020 CARON HALE [address] [place] [address], [address], [facility] [place], operated by [facility] 14:16:53 Polycysti c ovary syndrome 522943623 Active 2020 CARON HALE [address] [place] [address], [address], [facility] [place], operated by [facility] 14:22:59 Gastropar esis due to diabetes mellitus 130162235 Active 2020 CARON HALE [address] [place] [address], [address], [facility] [place], operated by [facility] 14:23:10 Essential hypertens ion 70334422 Active 2020 CARON HALE [address] [place] [address], [address], [facility] [place], operated by [facility] 14:23:37 Hyperlipi demia 44488817 Active 2020 CARON HALE [address] [place] [address], [address], [facility] [place], operated by [facility] 14:23:49 Lyme disease 03353977 Active 2020 CARON HALE [address] [place] [address], [address], [facility] [place], operated by [facility] 14:38:28 Osteoarth ritis 738654617 Active 2020 CARON HALE [address] [place] [address], [address], [facility] [place], operated by [facility] 14:38:41 Thyroidec usman Active 2021 CARON HALE [address] [place] [address], [address], [facility] [place], operated by [facility] 2 16:25:21 Insomnia 454520570 Active 2021 CARON HALE [address] [place] [address], [address], [facility] [place], operated by [facility] 2 12:29:19 Obesity 061815605 Active 2021 CARON HALE [address] [place] [address], [address], [facility] [place], operated by [facility] 2 12:30:19 Uvulitis 013335979 Active 2021 CARON HALE [address] [place] [address], [address], [facility] [place], operated by [facility] 2 14:30:20 Cough 01194985 Active 2021 CARON HALE [address] [place] [address], [address], [facility] [place], operated by [facility] 2 14:31:29 Mammograp hy abnormal 954318855 Active 2021 CARON HLAE [address] [place] [address], [address], [facility] [place], operated by [facility] 2 16:26:17 Lesion of breast 793054441 Active 2021 CARON HALE [address] [place] [address], [address], [facility] [place], operated by [facility] 2 14:01:55 Loss of hair 349130198 Active 2021 CARON HALE [address] [place] [address], [address], [facility] 2 11:21:55 Anxiety 97631991 Active 2021 CARON HALE [address] [place] [address], [address], [facility] [place], operated by [facility] 2 11:24:40 Nausea and vomiting 52910014 Active 2021 CARON HALE [address] [place] [address], [address], [facility] [place], operated by [facility] 2 11:38:11 Overweigh t 586151609 Active 2021 CARON HALE [address] [place] [address], [address], [facility] [place], operated by [facility] 2 13:03:41 Depressiv e disorder 70459783 Active 2021 CARON HALE [address] [place] [address], [address], [facility] [place], operated by [facility] 2 16:43:10 Chronic cough 65774892 Active 2022 CARON HALE [address] [place] [address], [address], [facility] [place], operated by [facility] 3 14:37:58 Loss of scalp hair 007024761 Active 2022 CARON HALE [address] [place] [address], [address], [facility] [place], operated by [facility] 3 15:43:55 Gastropar esis due to type 2 diabetes mellitus 840948902 Active 2022 CARON HALE [address] [place] [address], [address], [facility] [place], operated by [facility] 3 14:20:28 Vesicular eruption 07792652 Active 2022 CARON HALE [address] [place] [address], [address], [facility] [place], operated by [facility] 3 14:21:08 Staphyloc occal infection of skin 710990096 Active 2022 CARON HALE [address] [place] [address], [address], [facility] [place], operated by [facility] 3 13:15:06 Pain of left knee joint 617203611209 107 Active 2023 CARON HALE [address] [place] [address], [address], [facility] [place], operated by [facility] 4 09:32:19 Degenerat ion of lumbar intervert ebral disc 32866317 Active 2023 CARON HALE [address] [place] [address], [address], [facility] [place], operated by [facility] 4 15:28:33 Pain of left wrist 753905780423 102 Active 2023 CARON HALE [address] [place] [address], [address], [facility] [place], operated by [facility] 4 09:06:05 Pain of left ankle joint 538195433300 52059 Active 2023 CARON HALE [address] [place] [address], [address], [facility] [place], operated by [facility] 4 09:06:20 Metabolic acidosis 04087520 Active 2023 CARON HALE [address] [place], [address], [facility] [place], operated by [facility] 4 09:07:02 Atypical squamous cells of undetermi shweta significa nce on cervical Papanicol aou smear 371939238 Active 2023 CARON HALE [address] [place], [address], [facility] [place], operated by [facility] 15:46:53 Notes:Some problems listed i n Document: #[id number] could not be added to this patient's chart. Please review this document and add these problems to the patient's chart manually as needed. Problem Notes None recorded. Procedures Surgical History None recorded. Imaging Results Imaging Date Name Status LastModified by Organiz ation Details LastModified Time 03/10/2022 MAMMO, screening, digital, bilateral completed [address] [place], [address], 03/13/2022 09:45:02 03/10/2022 US, breast completed [address] [place], [address], 03/13/2022 09:45:15 06/28/2022 XR, chest, 2 view completed [facility] (Medical Records) [address] [place], [address], 07/04/2022 14:03:04 09/12/2022 MAMMO, diagnostic, digital, unilateral completed [address] [place], [address], 09/13/2022 14:13:26 03/08/2023 [email or web address] ([facility]) [address] [place], [address], 03/09/2023 06:40:24 04/03/2023 MAMMO, diagnostic, digital, unilateral completed [email or web address] [facility] [address] [place] [address] [place], [address], 04/03/2023 14:28:51 06/19/2023 MRI, knee, w/ contrast completed [facility] (Medical Records) [address] [place], [address], 06/20/2023 15:51:45 10/23/2023 US, pelvis completed [email or web address] [facility] (Medical Records) [address] [place], [address], 11/05/2023 14:54:50 12/12/2023 CT, abdomen + pelvis, w/o contrast completed [email or web address] [facility] (Medical Records) [address] [place], [address], 12/12/2023 08:50:42 03/02/2024 XR, lumbar spine, 2 view completed [address] (Medical Records) [address] [place], [address], 03/03/2024 09:26:27 03/02/2024 XR, wrist + hand completed [email or web address] (Medical Records) [address] [place], [address], 03/03/2024 09:26:53 03/02/2024 XR, ankle completed [facility] (Medical Records) [address] [place], [address], 03/03/2024 09:27:12 03/02/2024 XR, knee completed [email or web address] [facility] (Medical Records) [address] [place], [address], 03/03/2024 09:27:30 03/08/2024 CT, abdomen + pelvis, w/o contrast completed [facility] (Medical Records) [address] [place], [address], 03/09/2024 10:29:31 03/20/2024 CT, abdomen + pelvis, w/o contrast completed [facility] (Medical Records) [address] [place], [address], 03/20/2024 12:14:42 Procedure Notes None recorded. Medical Equipment None Reported. Allergies Allergen ID Allergen Name Allergen Category Reaction Reaction Severity Criticality Documentation Date Start Date Code Code System Note Provider Name and Address Organization Details Recorded Time 4899 shellfish derived food,medi cation other mild Not available 02/11/2021 mild facia l swell ing CARON HALE [address] [place], [address], [facility] [place], operated [facility] 1 14:16:06 7170 doxycycli ne Not available Not available Not available Not available 01/01/2023 3640 RxNorm CARON HALE [address] [place], [address], [facility] [place], operated [facility] 3 14:27:08 7171 vancomyci n medicatio n Not available Not available Not available 01/01/2023 79681 RxNorm CARON HALE [address] [place], [address], [facility] [place], operated [facility] 3 14:27:33 7172 influenza A (H1N1) medicatio n Not available Not available Not available 01/01/2023 CARON HALE [address] [place], [address], [facility] [place], operated [facility] 3 14:27:46 Medications Name Sig [...] day by oral route for 30 days. active Not Available Not Available No t Available topiramate 25 mg tablet TAKE 1 TABLET [...] Not Available Not Available No t Available phentermin e 30 mg capsule Take 1 capsule every day by oral route for 30 days. active Not Available Not Available No t [...] No t Available glipizide 5 mg tablet TAKE 1 TABLET BY MOUTH EVERY DAY FOR 30 DAYS 2023 active Not Available Not Available Not [...] Address Organization Details Last Updated DateTime 01/01/2023 57017.22 g 102 /min 100 % 100 % CARON HALE [address] [place] [address], [address], [facility] 3 14:02:25 Date Recorded Body height Body mass index (BMI) Body weight Heart rate Oxygen saturation Oxygen saturation in Arterial blood by Pulse oximetry Systolic blood pressure Diastolic blood pressure Provider Name and Address Organization Details Last Updated DateTime 4 144.78 cm 36.8 kg/m2 86695.7 g 105 /min 98 % 98 % 138 mm[Hg] 80 mm[Hg] Sunday Santo [facility] 4 16:29:45 Social History Question Answer Notes LastModified by Organizat ion Details LastModified Time Tobacco Smoking Status Never Smoker CARON HALE [address] [place], [address], [facility] [place], operated [facility] 01/01/2023 14:05:04 What Was The [...] Diagnosis/Indication Diagnosis SNOMED-CT Code Diagnosis ICD10 Code Diagnosis Note [id number] CARON HALE [facility] [address] [facility] [place] [address] 02/11/2021 13:46:00 02/11/2021 15:39:08 Essential hypertension 26177290 I10 stable Gastropare sis due to diabetes mellitus 877762373 E13.43 would like to find new GI Hyperlipidemia 97419436 E78.2 stable last check prior to transfer Polycystic ovary syndrome 024895941 E28.2 will submit referral to gynecology Type 2 gladis betes mellitus 44496050 E11.9 will fu with endocrine referral for evaluation Mammograph ic mass of right breast 6330301070 7552045 R92.8 needs fu in April Osteoarthritis 642160793 M15.3 due to Lyme diseasemos tly knees and hips but it does move aroundlast rheumatolo gy visit was 10 years ago Genetic sc reening for disorder 271686627 Z13.71 will fu with genetic screening Fatigue 92542679 R53.83 will fu with testing rheum panel and recheck TSH with T3 [id number] CARON HALE [facility] [address] [facility] [address] 03/21/2021 08:11:44 03/21/2021 16:21:41 Gastroparesis due to type 2 diabetes mellitus 482156568 E11.43 working on diet and using meds for ER Nausea and vomiting 1692 1999 R11.2 has zofran script from ER Diarrhea 74330307 R19.7 will continue on the dissolvabl e N/V mednot interested in a suppositor y Tachycardia 9863541 R00. 0 will fu with event monitor [id number] CARON HALE [facility] [address] [place] [address] ite [address] [facility] [place] [address] 05/10/2021 09:15:21 05/10/2021 11:28:29 Tear of medial meniscus of knee 825182260 S83.242A will fu with MRI to confirm probable diagnosis given clinical presentati on CARON HALE [facility] [address] [facility] [place] [address] 06/17/2021 08:20:00 06/20/2021 13:50:14 Panic disorder 164668319 F41.0 sent referralwi ll fu if the patient is not contacted Gastropare sis due to type 2 diabetes mellitus 032047750 E11.43 resolved from recent hospital trip Type 2 gladis betes mellitus 98904216 E11.9 waiting on endo appt Essential hypertension 66127365 I10 stable Gastropare sis due to diabetes mellitus 260330803 E13.43 waiting for GI appt Hyperlipidemia 17504859 E78.2 stable last check prior to transfer Insomnia 029726299 G47.0 1 will start at 10 mg, the patient has gastropare sis, does not digest and absorb things wellwill start at a higher dose [id number] CARON HALE [facility] [address] [place] [address], ite D [facility] [place] [address] 07/22/2021 16:18:01 07/25/2021 16:33:10 Type 2 diabetes mellitus 38353190 E11.9 stable History of thyroidectomy 937456027 Z90.09 fu with endocrine Obesity 029322030 E66.8 start topimaxfu in two weeks [id number] CARON HALE [facility] [address] [facility] [address] 10/11/2021 13:34:05 10/11/2021 14:40:37 Uvulitis 266123716 K12.2 will start on z leonard for prevention of infection and for anti-infla mmatory properties poor reaction with steriods, will try meloxicam in combo Cough 33723883 R05.1 will start on cough suppressan t as the cough is the main source of her continued discomfort [id number] CARON HLAE [facility] [address],[place] [address] 02/28/2022 10:57:02 02/28/2022 13:19:24 Loss of hair 618868296 L63.0 talking to endocrinol ogy Anxiety 80568019 F41.1 will restart on bupropionw ill help with weight loss Polycystic ovary syndrome 097107069 E28.2 might be having a flare up Osteoarthritis 648751755 M15.3 due to Lyme diseasemos tly knees and hips but it does move aroundlast rheumatolo gy visit was 10 years ago Lesion of breast 8918858 04 N60.01 will fu with MM screening, every 6 mos Nausea and vomiting 1693 2000 R11.2 will trial alternativ e nausea med prior to bed [id number] CARON HALE [facility] [address] [facility],[place] [address] 05/01/2022 09:36:04 05/01/2022 16:59:18 Type 2 diabetes mellitus 18195808 E11.9 stabledisc ussed other meds to use for both diabetes and weight loss Overweight 534572805 E66 .3 discussed increasing the topimax and waiting to see if ozempic or mounjaro come back into [facility] one of those [facility] Depressive disorder 2652 5297 F33.9 start duloxetine [id number] CARON HALE [facility] [address],[place] [address] 01/01/2023 13:58:24 01/01/2023 15:32:37 Anxiety 52572331 F41.1 will restart on bupropionw ill help with weight loss Depressive disorder 1360 9007 F33.9 start duloxetine Type 2 gladis betes mellitus 55645628 E11.9 stabledisc ussed other meds to use for both diabetes and weight loss Gastropare sis due to type 2 diabetes mellitus 285528924 E11.43 resolved from recent hospital trip Vesicular eruption 79107 008 R23.8 will set up with blood work and wound culturesta rt on keflex and hibiclens will set up with lab work History of thyroidectomy 671923207 Z90.09 fu with endocrine Lesion of breast 8702681 04 N60.01 will fu with MM screening, every 6 mos Mammography abnormal 168 251801 R92.8 will set up with new APPLIANCE MECHANIC closer to patient [id number] CARON HALE [facility] [address] [facility] [place] [address] 11/23/2023 16:10:36 11/27/2023 09:16:22 Depression screening 897316940 Z13.31 stable Polycystic ovary syndrome 755012419 E28.2 need APPLIANCE MECH[employer]IC referral Gastropare sis due to type 2 diabetes mellitus 793887232 E11.43 resolved from recent hospital trip Type 2 gladis betes mellitus 68483380 E11.9 stable Overweight 939263637 E66 .3 discussed increasing the topimax and waiting to see if ozempic or mounjaro come back into [facility] try one of those if they [facility] [id number] Eunice Mayer [facility] [address] [facility] [place] [address] 04/16/2024 09:44:20 04/16/2024 16:00:21 Overweight 420552972 E66.3 restart Type 2 gladis betes mellitus 51820321 E11.9 stable Gastropare sis due to type 2 diabetes mellitus 554848805 E11.43 resolved from recent hospital tripneeds alt med for diabetes control Atypical s quamous cells of undetermined significance on cervical Papanicolaou smear 961930739 R87.610 will resubmit referral againhave hr follow up with their office again Health Concerns Section Related Observation LastModified by Organization Detai ls LastModified Time None Recorded Concern Status LastModified by Organization Details LastModified Time None Recorded Advance Directives Directive None Recorded Payers Encounter Date Sequence Insurance Name Policy Number Policy Lee Covered Member ID Lee Member ID Guarantor Name 02/28/2022 1 [facility] [id number] Nila Wesley [id number] Nila Wesley 05/01/[address] [place] [address] [id number] Nila Welshis [id number] Nila Jonesbiskis 01/01/2023 1 [facility] [id number] Nila Jonesbiskis [id number] Nila Jonesbiskis 11/23/2023 1 [facility] [id number] Nila Jonesbiskis [id number] Nila Kunzskis 04/16/2024 1 [facility] [id number] Nila Jonesbiskis [id number] Nila Welshis Notes Date Note Type Note Provider Name and Address Organization Details Recorded Time 2 text/html the patient reports that she has been having the weight gain and hair lossshe is also throwing up in her sleep again, sleeps on her side the patient reports that she is talking to endo about her thyroidwill be testing CARON HALE [address] [place], [address], [facility] [place], operated [facility] 02/28/2022 11:40:21 2 text/html f/u [...] days for the MRI results CARON HALE [address] [place], [address], [facility] [place], operated [facility] 05/01/2022 16:58:49 3 text/html c/o rash rash, vesicles, red base, clear dischargewith gastroparesis hasn't been able to keep her meds down and could be having issues with the generic levomay be more suited toward synthroid will set up with blood work will f/u with patient after work up needs new [employer]PLIANCE MECHANIC CARON HALE [address] [place], [address], [facility] [place], operated by [facility] 01/01/2023 14:38:36 4 text/html medication f/u avoid zepbound due to h/x of gastroparesishealth [facility] won't cover wegovy and is back-ordereddiscussed maybe a short trial of rybelsus will have her try a free sample, monitor how she tolerates it wellwill also work well for her diabetes to control her sugar has f/u with PCOS with [facility] on/ob/gyn nurse who will be doing her procedures now the patient and I discussed other options for the new nerve damage like acupuncture and PTalso discussed possible use of a TENS unit to see if she likes it and will talk about her CARON HALE [address] [place], [address], [facility], [place], operated by [facility] 11/23/2023 17:09:21 4 text/html hospital f/u The patient is participating in this appointment via telemedicine communication with a phone call/video calling service ([employer])The patient consents to use of these platforms [...] the patient will need additional referral for [facility] gynoncolgystated they need verbal order which they are received currently liquid diet, protein shakeslimited solids on multivitamin currently needs to discuss f/u with endoneeds additional referral for t2dm CARON HALE [address] [facility], [place], [address], [facility] [place], operated [facility] 04/16/2024 15:59:11 OBGyn Episode No OBEpisode recorded.
--- OUTSIDE RECORDS SUMMARY | 2024-05-29 07:50 | XMS_ITS | Continuity of Care Document ---
Author Organization [place] - [facility], [facility] Address [address] [place] [address] [place] [address] Assessment Encounter Date Assessment Date Assessment LastModified [...] recent pap smear showing atypical cells, needs [facility] oncology from this reason, is unable [...] of endometrosi s 2023 diomedes Macias MD, [facility] [place], [address], 08:15:10 endocrinolo gy referral 2023 diomedes Hussein, [facility] [place], [address], 4 10:20:53 Procedures None recorded. Surgeries None recorded. Imaging None recorded. Medication Orders phentermine 15 mg capsule 2023 [id number], [address] [place], [address], 4 15:39:12 glipizide 5 mg tablet [address] [id number], [address] [facility], [place], [address], 4 15:56:57 Patient TargetsNo targets recorded. Patient InstructionsNo instructions recorded. 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 [facility] (Medical Records) [address] [place], [address], 03/20/2024 12:14:42 Result Notes None recorded. Problems Name Problem SNOMED Code Status Onset Date Resolution Date Notes Provider Name and Address Organization Details Recorded Time Type 2 diabetes mellitus 13011754 Active 2020 CARON HALE [address] [place], [address], [facility] 14:16:53 Polycysti c ovary syndrome 260389275 Active 2020 CARON HALE [address] [place], [address], [facility] 14:22:59 Gastropar esis due to diabetes mellitus 656597319 Active 2020 CARON HALE [address] [place] [address], [address], [facility] 14:23:10 Essential hypertens ion 50127400 Active 2020 CARON HALE [address] [place] [address], [address], [facility] 14:23:37 Hyperlipi demia 36302670 Active 2020 CARON HALE [address] [place] [address], [address], [facility] 14:23:49 Lyme disease 32039885 Active 2020 CARON HALE [address] [place] [address], [address], [facility] 14:38:28 Osteoarth ritis 326134320 Active 2020 CARON HALE [address] [place] [address], [address], [facility] 14:38:41 Thyroidec usman Active 2021 CARON HALE [address] [place] [address], [address], [facility] 2 16:25:21 Insomnia 798458287 Active 2021 CARON HALE [address] [place] [address], [address], [facility] 2 12:29:19 Obesity 284686949 Active 2021 CARON HALE [address] [place] [address], [address], [facility] 2 12:30:19 Uvulitis 663653629 Active 2021 CARON HALE [address] [place] [address], [address], [facility] 2 14:30:20 Cough 34471438 Active 2021 CARON HALE [address] [place], [address], [facility] 2 14:31:29 Mammograp hy abnormal 535174031 Active 2021 CARON HALE [address] [place], [address], [facility] 2 16:26:17 Lesion of breast 227678240 Active 2021 ACRON HALE [address] [place] [address], [address], [facility] 2 14:01:55 Loss of hair 935209410 Active 2021 CARON HALE [address] [place] [address], [address], [facility] 2 11:21:55 Anxiety 22722371 Active 2021 CARON HALE [address] [place] [address], [address], [facility] 2 11:24:40 Nausea and vomiting 20107833 Active 2021 CARON HALE [address] [place] [address], [address], [facility] 2 11:38:11 Overweigh t 724064059 Active 2021 CARON HALE [address] [place] [address], [address], [facility] 2 13:03:41 Depressiv e disorder 88282357 Active 2021 CARON HALE [address] [place] [address], [address], [facility] 2 16:43:10 Chronic cough 33742224 Active 2022 CARON HALE [address] [place] [address] [place], [address], [facility] 3 14:37:58 Loss of scalp hair 390868774 Active 2022 CARON HALE [address] [place], [address], [facility] 3 15:43:55 Gastropar esis due to type 2 diabetes mellitus 268226818 Active 2022 CARON HALE [address] [place] [address], [address], [facility] 3 14:20:28 Vesicular eruption 28252752 Active 2022 CARON HALE [address] [place] [address], [address], [facility] 3 14:21:08 Staphyloc occal infection of skin 310465069 Active 2022 CARON HALE [address] [place] [address], [address], [facility] 3 13:15:06 Pain of left knee joint 978434298521 107 Active 2023 CARON HALE [address] [place] [address], [address], [facility] 4 09:32:19 Degenerat ion of lumbar intervert ebral disc 88789274 Active 2023 CARON HALE [address] [place] [address], [address], [facility] 4 15:28:33 Pain of left wrist 235925884848 102 Active 2023 CARON HALE [address] [place] [address], [address], [facility] 4 09:06:05 Pain of left ankle joint 643108727613 89195 Active 2023 CARON HALE [address] [place] [address], [address], [facility] 4 09:06:20 Metabolic acidosis 17735238 Active 2023 CARON HALE [address] [place], [address], [facility] 4 09:07:02 Atypical squamous cells of undetermi shweta significa nce on cervical Papanicol aou smear 761802804 Active 2023 CARON HALE [address] [place], [address], [facility] 4 15:46:53 Notes:Some problems listed i n Document: #[id number] could not be added to this patient's [...] facia l swell ing CARON HALE [address] [place], [address], [facility] 1 14:16:06 7170 doxycycli ne Not available Not available Not available Not available 01/01/2023 3640 RxNorm CARON HALE [address] [place], [place], [address], [facility] 3 14:27:08 7171 vancomyci n medicatio n Not available Not available Not available 01/01/2023 12776 RxNorm CARON HALE [address] [place], [place], [address], [facility] 3 14:27:33 7172 influenza A (H1N1) medicatio n Not available Not available Not available 01/01/2023 CARON HALE [address] [place], [address], [facility] 3 14:27:46 Medications Name Sig Start Date Stop Date Status Note LastModified by Organization Details LastModified Time freestyle lite blood glucose monito ring system w/device kit active Not Available Not Available Not Available freestyle lancets mis active Not Available Not Available Not Available [...] Tobacco Smoking Status Never Smoker CARON HALE [address] [place] [address], [address], [facility] 01/01/2023 14:05:04 What Was The [...] SNOMED-CT Code Diagnosis ICD10 Code Diagnosis Note [id number] Eunice Mayer [facility] [address] [facility] [address] 04/16/2024 09:44:20 04/16/2024 16:00:21 Overweight 779872304 E66.3 restart Type 2 gladis betes mellitus 83537937 E11.9 stable Gastropare sis due to type 2 diabetes mellitus 868103309 E11.43 resolved from recent hospital tripneeds alt med for diabetes control Atypical s quamous cells of undetermined significance on cervical Papanicolaou smear 315376743 R87.610 will resubmit referral againhave hr follow up with their office again Health Concerns Section Related Observation LastModified by Organization Detai ls LastModified Time None Recorded Concern Status LastModified by Organization Details LastModified Time None Recorded Payers Encounter Date Sequence Insurance Name Policy Number Policy Lee Covered Member ID Lee Member ID Guarantor Name 04/16/[address] [place] [address] [id number] Nila Lupillo [id number] Nila Wesley Notes Date Note Type Note Provider Name a nd Address Organization Details Recorded Time 4 text/html hospital f/u The patient is participating in this appointment via telemedicine communication with a phone call/video calling service ([employer])The patient consents to use of these platforms [...] mg [facility] and emptying studygetting new blood work to check for nutritional def due to the lack of food intake the patient will need additional referral for [facility] gynoncolgystated they need verbal order which they are received currently liquid diet, protein shakeslimited solids on multivitamin currently needs to discuss f/u with endoneeds additional referral for t2dm CARON HALE [address] [facility], [place], [address], [facility] 04/16/2024 15:59:11 OBGyn Episode No OBEpisode recorded.
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
== END ==
LOC: HO.NUCMED 07:47
PROVIDERS: PCP Physician Assistant; Visit Provider Internal Medicine
DX: E66.9 Obesity, unspecified (principal); K31.84 Gastroparesis
CPT/HCPCS: 78264; A9541

== ENCOUNTER → 2024-05-29 07:48 | Outpatient (BNV) | payer OTHER, SELFPAY | PROVIDERS: PCP Physician Assistant; Visit Provider Radiology Diagnostic Radiology | DX: K31.84 Gastroparesis (principal) | CPT/HCPCS: 78264 ==

== ENCOUNTER 2024-06-16 09:24 | Outpatient (AMB) | payer OTHER, SELFPAY ==
--- NOTE | 2024-06-16 09:24 | A.OFFVIS_ITS ---
Intake Visit Reasons: gastroparesis 2 mo f/u Intake Note: Nila presents as a telehealth for a 2 month follow up gastroparesis. CC: States that she is still having N/V with pains in the stomach. Allergies influenza virus vaccine, specific [FLU VACCINE] Allergy (Mild, Verified 06/16/24 09:25) UNKNOWN doxycycline [DOXYCYCLINE] Allergy (Unknown, Verified 06/16/24 09:25) SWELLING vancomycin [VANCOMYCIN] Allergy (Unknown, Verified 06/16/24 09:25) ANAPHYLAXIS erythromycin base Allergy (Verified 06/16/24 09:25) Itching metoclopramide [From Reglan] Allergy (Verified 06/16/24 09:25) Unknown shellfish Allergy (Mild, Uncoded 06/16/24 09:25) Swelling HPI Comments Details: 34 year female who carries a dx of idiopathic gastroparesis diagnosed in 2017 who is here post hospitalisation follow up. [place] [facility] [place] times in the last few months. Was seen by me 03/21/[address] Mejia 03/31. 04/02: Had EGD with pyloric balloon dilation and 100u botox inj. Now reports doing much better with acid reflux as well as with tolerating liquids. Still struggling with solids. Tries to eat at least one solid food per day but has bloating and nausea which starts within 10-15 mins of consuming it. Maintaining caloric intake with protein shakes. However feels nutritional content is poor as has started to lose hair. Meds: Taking prilosec 20 Erythromycin 250 TID -- no drug holiday so far. Pt also recently diagnosed with T2DM in the hospital - currently not on any meds at all. Discontinued metformin due to side effects. Checking BG fastin-140. Post prandial: 138-172. Will be seeing Endocrine (Dr Annie Hussein at [facility]) next month. 06/16/24: Doing better - has been able to keep food down. Able to eat better. Has better control of DM which has been helping. Also working on weight, has lost almost 8# since she was last seen. Taking erythromycin 250 mg TID. Has incorporated more smoothies in her diet, in addition, strains them, to get out of excessive fiber. Is working on seeing a instructor dramatic arts towards the end of this month. [facility] Medical History New onset type 2 diabetes mellitus Cholecystectomy planned Pre-diabetes Lyme disease Osteoarthritis PCOS (polycystic ovarian syndrome) Gastroparesis Surgical History Hx of colonoscopy History of esophagogastroduodenoscopy (EGD) History of cholecystectomy H/O partial thyroidectomy Family History Maternal Aunt Breast cancer Social History Household Members: Friend(s) Housing: House Housing Other:: s stairs Do you presently have visiting nurse or other home services: No Unable to assess alcohol history related to: Unknown Alcohol intake: never Patient Tobacco Use Status: Never used Tobacco Second Hand Smoke Exposure: No service: No Current occupational status: employed Female Reproductive History Menstrual Age of Menarche: 15 Review of Systems Const All systems reviewed & are unremarkable except as noted in HPI and below Physical Exam Vital Signs: Phone visit Telehealth Telehealth Telehealth Platform: Telephone Location of provider rendering services: practice address Location of patient: address on file Patient Identification confirmed using: Name, : Yes Telehealth method: voice only Patient verbally consented to treatment: Yes Patient verbally consented to billing insurance company: Yes Patient informed of any privacy concerns related to visit: Yes Minutes spent on Phone/Video with Pt.: 13 Results Reviewed Results Reviewed: GES There is good visualization of activity in the stomach immediately post ingestion. As the study progresses, there is good clearance of activity from the stomach and visualization of progressively increasing small bowel activity. By the end of the study, there is almost no retention noted in the stomach. Retention in the stomach at each time interval was: 1 hour 89% (normal 37%-90%) 2 hours 66% (normal 30%-60%) 3 hours 60% 4 hours 31% (normal 0%-10%) Assessment & Plan Assessment & Plan (1) Gastroparesis: Code(s): K31.84 - Gastroparesis Category: Medical (2) Obesity (BMI 35.0-39.9 without comorbidity): Code(s): E66.9 - Obesity, unspecified Category: Medical (3) Diabetes mellitus with gastroparesis: Code(s): E11.43 - Type 2 diabetes mellitus with diabetic autonomic (poly)neuropathy Category: Medical Plan 1. Idiopathic gastroparesis Diagnosed in 2018 years before developing DM. However now with DM, will need strict glycemic control to avoid delayed gastric emptying 2/2 hyperglycemia. Goal BG <180 post prandial. s/p pyloric dil and botox 04/02/24. Doing a lot better since this dilation, additionally taking erythromycin, and has modified her diet as outlined above. Plan: - BG control <180 mg/dl post prandial - Small frequent meals - Low fat low fiber diet. - Small particle diet. Liquid diet during a flare. - Erythromycin 250 TID M-. HOLD sat and sun to avoid tachyphylaxis - due to see her tablet making machine operator in the end of this month, and if diabetes control better, can try to decrease erythromycin to twice a day. Follow up 3 months Medications: Refilled prochlorperazine maleate (Compazine) 10 mg PO Q8H PRN 20 tabs 0RF nausea and vomiting erythromycin Take 250 mg 1 tablet 3 times a day with meals 250 mg PO Q8H 90 tabs 0RF Coding Level of Care Code Tele Est Pt Level 4 (32952) Diagnoses Gastroparesis K31.84 Obesity (BMI 35.0-39.9 without comorbidity) E66.9 Diabetes mellitus with gastroparesis E11.43
--- OUTSIDE RECORDS SUMMARY | 2024-06-16 09:49 | XMS_ITS | Data Portability ---
Author Organization [place] [facility],, RACHELL RAYMUNDO MD Address [address] [address] Care Team Providers Care Professor Of Special Education Name Role Phone MARILOU OGDEN Primary Care Provider [phone] Assessment No assessment recorded. Plan of Treatment Reminders Order Date Submit Date Provider Last Modified By Organization Details Last Modified Time Details Appointments None recorded. Lab pap test, thinprep, cervical [address] [facility], Cytopathology Service, [address] [place] [address], [address], 07:26:29 chlamydia sp, culture, unspecifie d specimen [facility] [place] [address] [facility]ology [facility], Cytopathology Service, [address] [place] [address], [address], 07:33:03 NG DNA, PCR, genital [address] [facility]ology [facility], Cytopathology Service, [address] [place] [address], [address], 07:33:03 Referral None recorded. Procedures None recorded. Surgeries None recorded. Imaging US, pelvis, transabdom inal + transvagin al - patient may not be able to tolerate vaginal probe, please proceed with that slowly until she is certain it is tolerableH istory of endometrio sis 2020 [facility] Orders, [address], [address], [place], [address], 20:02:34 Medication Orders None recorded. Patient TargetsNo targets recorded. Patient Instructions Encounter Date Encounter Id Patient Instructions Last Modified By Organization Details Last Modified Time 02/28/2021 [id number] learning about healthy weight [email or web address] Not available 02/28/2021 10:33:21 gastroparesis: care instructions Not available 02/28/2021 10:35:48 endometriosis: care instructions Not available 02/28/2021 10:35:48 learning about control: the shot Not available 02/28/2021 10:35:48 shot for control: care instructions [email or web address] Not available 02/28/2021 10:35:48 She is here as a new patient, for annual exam. She has not seen a continuous improvement facilitator doctor since 2017. She has been sexually [...] go to the hospital. 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 She was originally from this area, moved to [place] for 6 years for a new job, [...] LastModifiedTime 02/29/20 21 02/28/2021 GENER AL5CA SE [id number] Chlam ydia: NEGAT SVITLANA N. gonor rhoea e: NEGAT SVITLANA Compl eted on 03-02 [facility] N: Z12.4 SOURC E: ThinP rep Pap for CT/GC Gross Descr iptio n: ThinP rep Vial [facility] MAVERICK ZHOU/ [phone] Not Available [facility], Cytopathology Service [address] [place], [address], 03/02/2021 14:00:29 02/29/20 21 02/28/2021 PAP1C ASE [id number] ThinP rep Pap, Image d: ATYPI DELORES [...] Z12.4 , Z01.4 19, Z11.3 Not Available [facility], Cytopathology Service [address] [place], [address], 03/24/2021 08:02:22 04/01/20 21 04/01/2021 US, pelvi s, trans abdom inal + trans vagin al No observ ation record ed. [facility] [address] [place], [address], 04/04/2021 13:14:53 Result Notes None recorded. Problems Name Problem SNOMED Code Status Onset Date Resolution Date Notes Provider Name and Address Organization Details Recorded Time Endometrio sis (clinical) 590825923 Active 2020 Rachell Raymundo MD [address], [place], [address], [place] [facility], 10:35:02 Gastropare sis syndrome 660917052 Active 2020 Rachell Raymundo MD [address], [place], [address], [place] [facility], 10:35:10 Unable to have sexual intercours e 071631142 Active 2020 cannot tolerate vaginal intercours e, or speculum for pap smear, vaginally Rachell Raymundo MD [address], [place], [address], [place] [facility], 12:41:41 Problem Notes None recorded. Procedures Surgical History Date Name Laterality Status Provider Name and Address Organization Details Recorded Time 02/16/20 15 cholecystectomy completed Chrissy Meczywor [place] [facility], 02/28/2021 10:03:55 02/15/20 11 Unlisted procedure breast completed Chrissy [place]eczywor [place] [facility], 02/28/2021 10:03:42 Thyroid Surgery completed Chrissy Meczywor [place] [facility], 02/28/2021 10:02:43 Imaging Results Imaging Date Name Status LastModified by Organization Details LastModified Time 04/01/2021 US, pelvis, transabdominal + transvaginal completed [address] [id number] [place], [address], 04/04/2021 13:14:53 Procedure Notes None recorded. Medical Equipment None Reported. Allergies Allergen ID Allergen Name Allergen Category Reaction Reaction Severity Criticality Documentation Date Start Date Code Code System Note Provider Name and Address Organization Details Recorded Time 66829 vancomyci n medicatio n anaphylax is Not available Not available 02/28/2021 13829 RxNorm Chrissy Meczywor null, [place] - [facility], 09:55:52 [address]3923 doxycycli ne Not available facial swelling Not available Not available 02/28/2021 3640 RxNorm Chrissy Meczywor null, [place] [facility], 09:56:07 91450 influenza virus vaccine, specific Not available anaphylax is Not available Not available 02/28/2021 86658 UNK Chrissy Meczywor null, [place] [facility], 09:56:40 56812 Reglan medicatio n other severe Not available 02/28/2021 9230 RxNorm Chrissy Meczywor null, [place] [facility], 09:57:06 Medications Name Sig Start [...] Address Organization Details Last Updated DateTime 1 23097.3 7 g 40.7 kg/m2 144.78 cm 97.4 [degF] 97 /min 132 mm[Hg] 88 mm[Hg] Chrissy Virgen in [facility], 09:55:33 Social History Question Answer Notes LastModified by Organizat ion Details LastModified Time Tobacco Smoking Status Never Smoker DARLENE Chatman in [facility], 02/28/2021 10:01:18 What Is Your [...] Or The Highest Degree You Have Received? [id number] Information not available 02/28/2021 What Is Your [...] Anxious, Or Unable To Sleep At Night)? [id number] Information not available 02/28/2021 Do You Use [...] or Bladder Problems N Thyroid Problems Y Depression Y Lung Disease N GI Problems N Defects or Inherited Disease N Anemia Y History of Ovarian Cancer N History of Breast Cancer N NANCY exposure [...] SNOMED-CT Code Diagnosis ICD10 Code Diagnosis Note [id number] MD RACHELL Malhotra MD [address] [facility] [address] [place] [address] 02/28/2021 09:44:25 02/28/2021 13:15:24 Specialized medical examination 53861081 Z01.419 Venereal d isease screening 451589009 Z11.3 Pain in pelvis 96282559 R10.2 Gastropare sis syndrome 456696382 K31.84 Endometrio sis (clinical) 531619390 N80.9 Health Concerns Section Related Observation LastModified by Organization Detai ls LastModified Time None Recorded Concern Status LastModified by Organization Details LastModified Time None Recorded Advance Directives Directive None Recorded Payers Encounter Date Sequence Insurance Name Policy Number Policy Lee Covered Member ID Lee Member ID Guarantor Name 02/28/2021 1 [facility] [place] Nila Wesley [id number] Nila Wesley Notes Date Note Type Note Provider Name and Address Organization Details Recorded Time 02/28/2021 text/html She is here as a new patient, for annual exam. She has not seen a continuous improvement facilitator doctor since 2017. She has been sexually [...] go to the hospital. 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 Rachell Raymundo MD [address] [facility],[address], [place], [address], [place] [facility], 02/28/2021 12:42:11 OBGyn Episode No OBEpisode recorded.
--- OUTSIDE RECORDS SUMMARY | 2024-06-16 09:50 | XMS_ITS | Data Portability ---
Author Organization [facility], Home Service Address [address] [place] [address] Assessment Encounter Date Assessment Date Assessment LastModified [...] vitamin D, 25-hydroxy , total, serum 2021 [facility], [address] [place] [address], [place], [address], 11:27:54 vitamin B12 + folate, serum or blood 2021 [facility], [address] [place] [address], [address], 11:27:54 iron + total iron-rakan ng capacity (TIBC), serum 2021 [facility], [address] [place] [address], [address], 11:27:54 ferritin, serum or plasma 2021 [facility], [address] [place] [address], [address], 11:27:54 CBC w/ auto diff 2021 [facility], [address] [place] [address], [address], 11:27:54 hemoglobin A1c, QN, blood 2021 [facility], [address] [place] [address], [address], 11:27:54 dhea-sulfa te, serum 2021 [facility], [address] [place] [address], [address], 11:29:08 testostero ne, free + total, serum 2021 [facility], [address] [place] [address], [address], 13:21:37 lh + FSH, serum 2021 [facility], [address] [place] [address], [address], 12:44:18 prolactin, serum 2021 [facility], [address] [place] [address], [address], 11:29:08 estradiol, serum 2021 [facility], [address] [place] [address], [address], 12:03:15 CBC w/ auto diff 2022 023 [facility], [address] [place] [address], [address], 3 14:30:48 ESR (erythrocy te sedimentat ion rate), blood 2022 023 [facility], [address] [place] [address], [address], 3 14:30:49 C-reactive protein, quantitati ve, serum or plasma 2022 023 [facility], [address] [place] [address], [address], 3 14:30:49 C4 (complemen t), serum or plasma 2022 023 [facility], [address] [place] [address], [address], 3 12:16:34 iga Ab, qualitativ e, serum 2022 023 [facility], [address] [place] [address], [address], 3 11:25:15 ige, total, serum 2022 023 [facility], [address] [place] [address], [address], 3 14:30:48 IgM Ab, QL, serum or plasma 2022 023 [facility], [address] [place] [address], [address], 3 14:30:49 culture, wound - stomach wound 2022 023 [facility], [address] [place] [address], [address], 3 12:49:06 vitamin D, 25-hydroxy , total, serum 2022 023 [facility], [address] [place] [address], [address], 3 14:30:49 vitamin B12, serum 2022 023 [facility], [address] [place] [address], [address], 3 14:30:49 folate, serum 2022 023 [facility], [address] [place] [address], [address], 3 14:30:48 TSH + free T4, serum 2022 023 [facility], [address] [place] [address], [address], 3 14:30:49 thyroid peroxidase (tpo) Ab, serum 2022 023 [facility], [address] [place] [address], [address], 3 14:30:48 thyroglobu mike Ab, serum 2022 023 [facility], [address] [place] [address], [address], 3 14:30:48 Referral rheumatolo gist referral 2021 022 [email or web address] 10 [facility], [address] [place] [address], [address], 2 08:30:[address] referral [address] [facility], [address] [place] [address] [place], [address], 3 08:18:[address] referral 2023 024 [email or web address] Flori Macias MD, [address] [place], [address], 4 09:16:[address] referral - complex medical patient with PCOS, recent pap smear showing atypical cells, needs [facility] oncology from this reason, is unable to [...] endometros is 2023 diomedes Macias MD, [address] [place], [address], 4 08:15:10 endocrinol ogy referral 2023 diomedes Hussein, [address] [place], [address], 4 10:20:53 Procedures None recorded. Surgeries None recorded. Imaging MAMMO, diagnostic , digital, unilateral - continued breast lesion and asymmetry of the right breast, needs to be monitored every 6 mos 2021 [facility] Scheduling, [address] [facility], [place], [address], 2 08:38:28 Medication Orders bupropion HCl SR 150 mg tablet,12 hr sustained- release 2021 [facility], [address] [facility], [place], [address], 2 11:26:36 promethazi ne 25 mg tablet 2021 [email or web address] [facility], [address] [place], [address], 4 16:28:19 topiramate 100 mg tablet 2021 022 [facility], [address] [place], [address], 2 16:54:02 phentermin e 15 mg capsule 2021 022 [facility] [address] [place], [address], 3 11:38:17 phentermin e 15 mg capsule 2021 022 [facility], [address] [place], [address], 3 11:38:17 duloxetine 20 mg capsule,de layed release 2021 022 [facility] [address] [place], [address], 3 14:02:51 Hibiclens 4 % topical liquid 2022 023 [facility], [address] [place], [address], 3 14:28:16 cephalexin 500 mg capsule 2022 023 [facility], [address] [place], [address], 4 13:25:36 phentermin e 15 mg capsule 2023 024 [facility], [address] [place], [address], 4 15:39:12 glipizide 5 mg tablet 2023 024 [facility], [address] [place], [address], 4 15:56:57 Patient TargetsNo targets recorded. Patient InstructionsNo instructions recorded. Reason for Referral Collection Officer Referral for Osteoarthritis worsening arthritis pain (Multiple chronic referrals) Referring Physician: [facility], Encounter Date: 02/28/2022 Picture Booker Referral for Ma mmography abnormal PCOS and possible endometrosis Referring Physician: [facility], Encounter Date: 01/01/2023 Picture Booker Referral for Po lycystic ovary syndrome needs PCP referral Referring Physician: [facility], Encounter Date: 11/23/2023 Picture Booker Referral for At ypical squamous cells of undetermined significance on cervical Papanicolaou smear fu referral complex medical patient with PCOS, recent pap smear showing atypical cells, needs [facility] oncology from this reason, is unable to [...] bilat eral No observ ation record ed. [address] [place], [address], 03/13/2022 09:45:02 03/13/20 22 03/10/2022 jono GARAY No observ ation record ed. [address] [place], [address], 03/13/2022 09:45:15 07/03/19 23 06/28/2022 XR, chest , 2 view No observ ation record ed. [facility] (Medical Records) [address] [facility] [place], [address], 07/04/2022 14:03:04 09/13/19 23 09/12/2022 MAMMO , diagn ostic , digit al, unila teral No observ ation record ed. [address] [place], [address], 09/13/2022 14:13:26 03/08/20 23 03/08/2023 XR, knee No observ ation record ed. [address] (Medical Records) [address] [place], [address], 03/09/2023 06:40:24 04/03/20 23 04/03/2023 MAMMO , diagn ostic , digit al, unila teral No observ ation record ed. [address] [place], [address], 04/03/2023 14:28:51 06/20/19 24 06/19/2023 MRI, knee, w/ contr ast No observ ation record ed. [facility] [address] [facility] [place], [address], 06/20/2023 15:51:45 11/05/19 24 10/23/2023 US, pelvi s No observ ation record ed. [email or web address] [facility] (Medical Records) [address] [facility] [place], [address], 11/05/2023 14:54:50 12/12/19 24 12/12/2023 CT, abdom en + pelvi s, w/o contr ast No observ ation record ed. [facility] (Medical Records) [address] [facility] [place], [address], 12/12/2023 08:50:42 03/02/20 24 03/02/2024 XR, lumba r spine , 2 view No observ ation record ed. [email or web address] (Medical Records) [address] [place], [address], 03/03/2024 09:26:27 03/02/20 24 03/02/2024 XR, wrist + hand No observ ation record ed. [address] (Medical Records) [address] [place], [address], 03/03/2024 09:26:53 03/02/20 24 03/02/2024 XR, ankle No observ ation record ed. [address] (Medical Records) [address] [place], [address], 03/03/2024 09:27:12 03/02/20 24 03/02/2024 XR, knee No observ ation record ed. [address] (Medical Records) [address] [facility], [address], 03/03/2024 09:27:30 03/08/20 24 03/08/2024 CT, abdom en + pelvi s, w/o contr ast No observ ation record ed. [facility] (Medical Records) [address] [place], [address], 03/09/2024 10:29:31 03/20/20 24 03/20/2024 CT, abdom en + pelvi s, w/o contr ast No observ ation record ed. [facility] (Medical Records) [address] [place], [address], 03/20/2024 12:14:42 05/29/19 25 05/29/2024 gastr ic empty ing study (PROC ) No observ ation record ed. [facility] (Medical Records) [address] [facility], [address], 05/29/2024 19:29:28 Result Notes None recorded. Problems Name Problem SNOMED Code Status Onset Date Resolution Date Notes Provider Name and Address Organization Details Recorded Time Type 2 diabetes mellitus 96209213 Active 2020 [address] HALE [address] [place] [address], [address], [facility] 14:16:53 Polycysti c ovary syndrome 133222979 Active 2020 CARON HALE [address] [place] [address], [address], [facility] 14:22:59 Gastropar esis due to diabetes mellitus 476318714 Active 2020 CARON HALE [address] [place] [address], [address], [facility] 14:23:10 Essential hypertens ion 80806540 Active 2020 CARON HALE [address] [place] [address], [address], [facility] 14:23:37 Hyperlipi demia 61565187 Active 2020 CARON HALE [address] [place] [address], [address], [facility] 14:23:49 Lyme disease 64047213 Active 2020 CARON HALE [address] [place] [address], [address], [facility] 14:38:28 Osteoarth ritis 689315898 Active 2020 CARON HALE [address] [place] [address], [address], [facility] 14:38:41 Thyroidec usman Active 2021 CARON HALE [address] [place] [address], [address], [facility] 2 16:25:21 Insomnia 096395563 Active 2021 CARON HALE [address] [place], [address], [facility] 2 12:29:19 Obesity 036450159 Active 2021 CARON HALE [address] [place], [address], [facility] 2 12:30:19 Uvulitis 024657914 Active 2021 CARON HALE [address] [place] [address], [address], [facility] 2 14:30:20 Cough 56866412 Active 2021 CARON HALE [address] [place] [address], [address], [facility] 2 14:31:29 Mammograp hy abnormal 640603182 Active 2021 CARON HALE [address] [place] [address], [address], [facility] 2 16:26:17 Lesion of breast 885015505 Active 2021 CARON HALE [address] [place] [address], [address], [facility] 2 14:01:55 Loss of hair 446566359 Active 2021 CARON HALE [address] [place] [address], [address], [facility] 2 11:21:55 Anxiety 33609923 Active 2021 CARON HALE [address] [place] [address], [address], [facility] 2 11:24:40 Nausea and vomiting 22247487 Active 2021 CARON HALE [address] [place] [address], [address], [facility] 2 11:38:11 Overweigh t 759635681 Active 2021 CARON HALE [address] [place] [address], [address], [facility] 2 13:03:41 Depressiv e disorder 14560679 Active 2021 CARON HALE [address] [place] [address], [address], [facility] 2 16:43:10 Chronic cough 62620720 Active 2022 CARON HALE [address] [place] [address], [address], [facility] 3 14:37:58 Loss of scalp hair 973585716 Active 2022 CARON HALE [address] [place] [address], [address], [facility] 3 15:43:55 Gastropar esis due to type 2 diabetes mellitus 161802740 Active 2022 CARON HALE [address] [place] [address], [address], [facility] 3 14:20:28 Vesicular eruption 64423559 Active 2022 CARON HALE [address] [place] [address], [address], [facility] 3 14:21:08 Staphyloc occal infection of skin 610108497 Active 2022 CARON HALE [address] [place] [address], [address], [facility] 3 13:15:06 Pain of left knee joint 915028809603 107 Active 2023 CARON HALE [address] [place] [address], [address], [facility] 4 09:32:19 Degenerat ion of lumbar intervert ebral disc 52870325 Active 2023 CARON HALE [address] [place] [address], [address], [facility] 4 15:28:33 Pain of left wrist 730922632688 102 Active 2023 CARON HALE [address] [place] [address], [address], [facility] 4 09:06:05 Pain of left ankle joint 146275031266 87002 Active 2023 CARON HAEL [address] [place] [address], [address], [facility] 4 09:06:20 Metabolic acidosis 30974864 Active 2023 CARON HALE [address] [place] [address], [address], [facility] 4 09:07:02 Atypical squamous cells of undetermi shweta significa nce on cervical Papanicol aou smear 813148690 Active 2023 CARON HALE [address] [place] [address], [address], [facility] 4 15:46:53 Notes:Some problems listed i n Document: #[id number] could not be added to this patient's chart. Please review this document and add these problems to the patient's chart manually as needed. Problem Notes None recorded. Procedures Surgical History None recorded. Imaging Results Imaging Date Name Status LastModified by [facility] Details LastModified Time 03/10/2022 MAMMO, screening, digital, bilateral completed [address] [place], [address], 03/13/2022 09:45:02 03/10/2022 US, breast completed [address] [place], [address], 03/13/2022 09:45:15 06/28/2022 XR, chest, 2 view completed [facility] (Medical Records) [address] [place], [address], 07/04/2022 14:03:04 09/12/2022 MAMMO, diagnostic, digital, unilateral completed [address] [place], [address], 09/13/2022 14:13:26 03/08/2023 XR, knee completed [address] (Medical Records) [address] [facility] [place], [address], 03/09/2023 06:40:24 04/03/2023 MAMMO, diagnostic, digital, unilateral completed [address] [place], [address], 04/03/2023 14:28:51 06/19/2023 MRI, knee, w/ contrast completed [facility] (Medical Records) [address] [place], [address], 06/20/2023 15:51:45 10/23/2023 US, pelvis completed [address] (Medical Records) [address] [place], [address], 11/05/2023 14:54:50 12/12/2023 CT, abdomen + pelvis, w/o contrast completed [facility] (Medical Records) [address] [facility] [place], [address], 12/12/2023 08:50:42 03/02/2024 XR, lumbar spine, 2 view completed [address] (Medical Records) [address] [place], [address], 03/03/2024 09:26:27 03/02/2024 XR, wrist + hand completed [address] (Medical Records) [address] [place], [address], 03/03/2024 09:26:53 03/02/2024 XR, ankle completed [email or web address] (Medical Records) [address] [place], [address], 03/03/2024 09:27:12 03/02/2024 XR, knee completed [email or web address] [facility] (Medical Records) [address] [place], [address], 03/03/2024 09:27:30 03/08/2024 CT, abdomen + pelvis, w/o contrast completed [facility] (Medical Records) [address] [place], [address], 03/09/2024 10:29:31 03/20/2024 CT, abdomen + pelvis, w/o contrast completed [facility] (Medical Records) [address] [place], [address], 03/20/2024 12:14:42 05/29/2024 gastric emptying study (PROC) completed [facility] (Medical Records) [address] [place], [address], 05/29/2024 19:29:28 Procedure Notes None recorded. Medical Equipment None Reported. Allergies Allergen ID Allergen Name Allergen Category Reaction Reaction Severity Criticality Documentation Date Start Date Code Code System Note Provider Name and Address Organization Details Recorded Time 4899 shellfish derived food,medi cation other mild Not available 02/11/2021 51935 UNK mild facia l swell ing CARON HALE [address] [place], [address], [facility] 1 14:16:06 7170 doxycycli ne Not available Not available Not available Not available 01/01/2023 3640 RxNorm CARON HALE [address] [place], [address], [facility] 3 14:27:08 7171 vancomyci n medicatio n Not available Not available Not available 01/01/2023 33950 RxNorm CARON HALE [address] [place], [address], [facility] 3 14:27:33 7172 influenza A (H1N1) medicatio n Not available Not available Not available 01/01/2023 60156 UNK CARON HALE [address] [place], [address], [facility] 3 14:27:46 Medications Name Sig [...] Address Organization Details Last Updated DateTime 01/01/2023 99643.22 g 102 /min 100 % 100 % CARON HALE [address] [facility], [place], [address] 3 14:02:25 Date Recorded Body height Body mass index (BMI) Body weight Heart rate Oxygen saturation Oxygen saturation in Arterial blood by Pulse oximetry Systolic blood pressure Diastolic blood pressure Provider Name and Address Organization Details Last Updated DateTime 4 144.78 cm 36.8 kg/m2 37920.7 g 105 /min 98 % 98 % 138 mm[Hg] 80 mm[Hg] Sunday Santo [facility] 4 16:29:45 Social History Question Answer Notes LastModified by [employer] ion Details LastModified Time Tobacco Smoking Status Never Smoker CARON HALE [address] [place], [address] 01/01/2023 14:05:04 What Was [...] SNOMED-CT Code Diagnosis ICD10 Code Diagnosis Note [id number] CARON HALE [facility] [address] [facility],[place] [address] 02/11/2021 13:46:00 02/11/2021 15:39:08 Essential hypertension 35449460 I10 stable Gastropare sis due to diabetes mellitus 387099750 E13.43 would like to find new GI Hyperlipidemia 65890845 E78.2 stable last check prior to transfer Polycystic ovary syndrome 172576359 E28.2 will submit referral to gynecology Type 2 gladis betes mellitus 09655387 E11.9 will fu with endocrine referral for evaluation Mammograph ic mass of right breast 8874979917 0261935 R92.8 needs fu in April Osteoarthritis 389738011 M15.3 due to Lyme diseasemos tly knees and hips but it does move aroundlast rheumatolo gy visit was 10 years ago Genetic sc reening for disorder 812258318 Z13.71 will fu with genetic screening Fatigue 12158061 R53.83 will fu with testing rheum panel and recheck TSH with T3 [id number] CARON HALE [facility] [address] [facility] [address], itkemal López [place] [address] 03/21/2021 08:11:44 03/21/2021 16:21:41 Gastroparesis due to type 2 diabetes mellitus 535442630 E11.43 working on diet and using meds for ER Nausea and vomiting 1692 1999 R11.2 has zofran script from ER Diarrhea 81706642 R19.7 will continue on the dissolvabl e N/V mednot interested in a suppositor y Tachycardia 2953851 R00. 0 will fu with event monitor [id number] CARON H[facility] [address] [facility] [address], [place] [address] 05/10/2021 09:15:21 05/10/2021 11:28:29 Tear of medial meniscus of knee 455502266 S83.242A will fu with MRI to confirm probable [place] [id number] CARON HALE [facility] [address] [facility] [address], [place] [address] 06/17/2021 08:20:00 06/20/2021 13:50:14 Panic disorder 720583399 F41.0 sent referralwi ll fu if the patient is not contacted Gastropare sis due to type 2 diabetes mellitus 748659110 E11.43 resolved from recent hospital trip Type 2 gladis betes mellitus 82118719 E11.9 waiting on endo appt Essential hypertension 93877487 I10 stable Gastropare sis due to diabetes mellitus 766039660 E13.43 waiting for GI appt Hyperlipidemia 87407456 E78.2 stable last check prior to transfer Insomnia 735008309 G47.0 1 will start at 10 mg, the patient has gastropare sis, does not digest and absorb things wellwill start at a higher dose [id number] CARON HALE [facility] [address] [facility] [address],[place] [address] 07/22/2021 16:18:01 07/25/2021 16:33:10 Type 2 diabetes mellitus 32212132 E11.9 stable History of thyroidectomy 345740186 Z90.09 fu with endocrine Obesity 530630011 E66.8 start topimaxfu in two weeks [id number] CARON HALE [facility] [address] [facility] [address],[place] [address] 10/11/2021 13:34:05 10/11/2021 14:40:37 Uvulitis 030737819 K12.2 will start on z leonard for prevention of infection and for anti-infla mmatory properties poor reaction with steriods, will try meloxicam in combo Cough 26082353 R05.1 will start on cough suppressan t as the cough is the main source of her continued discomfort [id number] CARON HALE [facility] [address] [facility],[place] [facility] [place] [address] 02/28/2022 10:57:02 02/28/2022 13:19:24 Loss of hair 370400530 L63.0 talking to endocrinol ogy Anxiety 17450069 F41.1 will restart on bupropionw ill help with weight loss Polycystic ovary syndrome 116159942 E28.2 might be having a flare up Osteoarthritis 241526749 M15.3 due to Lyme diseasemos tly knees and hips but it does move aroundlast rheumatolo gy visit was 10 years ago Lesion of breast 4758588 04 N60.01 will fu with MM screening, every 6 mos Nausea and vomiting 1693 2000 R11.2 will trial alternativ e nausea med prior to bed [id number] CARON HALE [facility] [address] [facility] [address],[place] [facility] [place] [address] 05/01/2022 09:36:04 05/01/2022 16:59:18 Type 2 diabetes mellitus 56797174 E11.9 stabledisc ussed other meds to use for both diabetes and weight loss Overweight 082919773 E66 .3 discussed increasing the topimax and waiting to see if ozempic or mounjaro come back into stockwill try one of those if they become more availablesaint [facility] Depressive disorder 7579 3572 F33.9 start duloxetine [id number] CARON HALE [facility] [address] [facility] [address],[place] [address] 01/01/2023 13:58:24 01/01/2023 15:32:37 Anxiety 41952872 F41.1 will restart on bupropionw ill help with weight loss Depressive disorder 3548 9007 F33.9 start duloxetine Type 2 gladis betes mellitus 75988377 E11.9 stabledisc ussed other meds to use for both diabetes and weight loss Gastropare sis due to type 2 diabetes mellitus 895472309 E11.43 resolved from recent hospital trip Vesicular eruption 56305 008 R23.8 will set up with blood work and wound culturesta rt on keflex and hibiclens will set up with lab work History of thyroidectomy 774688628 Z90.09 fu with endocrine Lesion of breast 9453013 04 N60.01 will fu with MM screening, every 6 mos Mammography abnormal 168 357210 R92.8 will set up with new DISTRICT MEDICAL EXAMINER closer to patient [id number] [facility] [address] [facility] [address] [address] 11/23/2023 16:10:36 11/27/2023 09:16:22 Depression screening [id number] Z13.31 stable Polycystic ovary syndrome [id number] E28.2 need DISTRICT MEDICAL EXAMINER referral Gastropare sis due to type 2 diabetes mellitus [id number] E11.43 resolved from recent hospital trip Type 2 gladis betes mellitus [id number] E11.9 stable Overweight [id number] E66 .3 discussed increasing the topimax and waiting to see if ozempic or mounjaro come [facility] those [facility] [id number] Eunice Mayer [facility] Internal Medicine [address] [facility] [address] [address] 04/16/2024 09:44:20 04/16/2024 16:00:21 Overweight [id number] E66.3 restart Type 2 gladis betes mellitus 16794693 E11.9 stable Gastropare sis due to type 2 diabetes mellitus 885057857 E11.43 resolved from recent hospital tripneeds alt med for diabetes control Atypical s quamous cells of undetermined significance on cervical Papanicolaou smear [id number] R87.610 will resubmit referral againhave hr follow up with their office again Health Concerns Section Related Observation LastModified by Organization Detai ls LastModified Time None Recorded Concern Status LastModified by Organization Details LastModified Time None Recorded Advance Directives Directive None Recorded Payers Encounter Date Sequence Insurance Name Policy Number Policy Lee Covered Member ID Lee Member ID Guarantor Name 02/28/2022 1 [facility] [id number] Nila Werbiskis [id number] Nila Werbiskis 05/01/2022 1 [facility] [id number] Nila Werbiskis [id number] Nila Werbiskis 01/01/2023 1 [facility] [id number] Nila Werbiskis [id number] Nila Werbiskis 11/23/2023 1 [facility] [id number] Nila Werbiskis [id number] Nila Werbiskis 04/16/2024 1 [facility] [id number] Nila Werbiskis [id number] Nila Werbiskis Notes Date Note Type Note Provider Name and Address Organization Details Recorded Time 2 text/html the patient reports that she has been having the weight gain and hair lossshe is also throwing up in her sleep again, sleeps on her side the patient reports that she is talking to endo about her thyroidwill be testing CARON HALE [address] [place], [address], [facility] 02/28/2022 11:40:21 2 [...] for the MRI results CARON HALE [address] [place], [address], [facility] 05/01/2022 16:58:49 3 text/html c/o rash rash, vesicles, red base, clear dischargewith gastroparesis hasn't been able to keep her meds down and could be having issues with the generic levomay be more suited toward synthroid will set up with blood work will f/u with patient after work up needs new DISTRICT MEDICAL EXAMINER CARON HALE [address] [place], [address], [facility] 01/01/2023 14:38:36 4 text/html medication f/u avoid zepbound due to h/x of gastroparesishealth [facility]ce won't cover wegovy and is back-ordereddiscussed maybe a short trial of rybelsus will have her try a free sample, monitor how she tolerates it wellwill also work well for her diabetes to control her sugar has f/u with PC[facility] with [facility] on/beater boss who will be doing her procedures now the patient and I discussed other options for the new nerve damage like acupuncture and PTalso discussed possible use of a TENS unit to see if she likes it and will talk about her CARON HALE [address] [place], [address], [facility] 11/23/2023 17:09:21 4 text/html hospital f/u The patient is participating in this appointment via telemedicine communication with a phone call/video calling service (Lumiyy)The patient consents to use of these platforms [...] the patient will need additional referral for [facility] gynoncolgystated they need verbal order which they are received currently liquid diet, protein shakeslimited solids on multivitamin currently needs to discuss f/u with endoneeds additional referral for t2dm CARON HALE [address] [facility], [place], [address], DARLEN[facility] Nguyen Internal [facility] 04/16/2024 15:59:11 OBGyn Episode No OBEpisode recorded.
--- OUTSIDE RECORDS SUMMARY | 2024-06-16 09:50 | XMS_ITS | Continuity of Care Document ---
Author Organization [facility] Address [address] [place] [address]- Care Team Providers Care Property Investor Name Role Phone Juan Chou DO Primary Care Physician [phone] Encounter [facility] Date(s): 04/29/24 - 05/29/24 [facility] [address] [place] [id number] Encounter Type: Triage Allergies, Adverse Reactions, Alerts Substance Criticality Severity Reaction Reaction Severity Status doxycycline Active vancomycin Active Reglan Dystonia Akathisia Active flu vaccines Active Immunizations Given and Recorded Vaccine Date Status Refusal Reason SARS-CoV-2 (COVID-19) mRNA BNT-162b2 vac 10/23/20 Recorded SARS-CoV-2 (COVID-19) mRNA BNT-162b2 vac 09/22/20 Recorded SARS-CoV-2 (COVID-19) mRNA BNT-162b2 vac 08/30/20 Recorded Medications Ambien 10 mg oral tablet 1 tablet = 10 mg, By Mouth, Daily at bedtime, PRN for sleep, 0 Refills, Maintenance, 06/30/21 12:11:00 PM EST, Tablet, Partial fill upon patient request if the prescription is for a schedule II opioiddrug. Start Date: 06/30/21 Status: Ordered Repeat number: 1 buPROPion 150 mg/24 hours (XL) oral tablet, extended release 1 tablet = 150 mg, By Mouth, Daily, # 30 tablet, 0 Refills, Maintenance, 07/13/21 11:24:00 AM EST, XLTablet, Partial fill upon patient request if the prescription is for a schedule II opioid drug. Start Date: 07/13/21 Status: Ordered Quantity: 30.0 Unit: tablet Repeat number: 1 dexamethasone 1 mg oral tablet 1 tablet = 1 mg, By Mouth, Once, # 1 tablet, 0 Refills, Soft Stop, 11/02/21 9:27:00 AM EDT, [id number], Partial fill upon patient request if the prescription is for a schedule II opioid drug.,145, cm, 11/02/21 9:01:00 EDT, Height, 91, kg, 05/28/21 0:57:00 EST, Dry Weight Start Date: 11/02/21 Status: Ordered Quantity: 1.0 Unit: tablet Repeat number: 1 levothyroxine 0.025 mg oral tablet 0.5 tablet = 12.5 mcg, By Mouth, Daily, please take first thing in the am on empty stomach, 60 minutes before food and other medications, # 45 tablet, 3 Refills, Maintenance, 01/24/22 1:00:00 PM EDT, Tablet, [facility] #[id number], Partial fill upon patient request if the prescription is for a schedule II opioid drug., 145, cm, 11/02/21 9:01:00 EDT, Height, 91, kg, 05/28/21 0:57:00 EST, Dry Weight Start Date: 01/24/22 Status: Ordered Quantity: 45.0 Unit: tablet Repeat number: 4 promethazine 25 mg oral tablet 1 tablet = 25 mg, By Mouth, Every 6 hours, PRN for nausea/vomiting, # 15 each, 0 Refills, Maintenance, 12/12/23 2:04:00 PM EDT, Tablet, [facility] #[id number], Partial fill upon patient request if the prescription is for a schedule II opioid drug., 145, cm, 12/12/23 12:14:00 EDT, Height, 77.5, kg, 12/12/23 12:14:00 EDT, Dry Weight Start Date: 12/12/23 Stop Date: 12/15/23 Status: Ordered Quantity: 15.0 Unit: each Repeat number: 1 Zofran 4 mg oral tablet 1 tablet = 4 mg, By Mouth, 3 times a day, PRN Nausea, # 12 tablet, 5 Refills, Maintenance, 06/30/21 10:38:00 AM EST, Partial fill upon patient request if the prescription is for a schedule II opioid drug. Start Date: 06/30/21 Status: Ordered Quantity: 12.0 Unit: tablet Repeat number: 1 Problem List Condition Confirmation Course Effective Dates Status H ealth Status Informant Rheumatoid arthritis involving both knees Confirmed Active Breast lump Confirmed Active Excisional biopsy of breast 1 Confirmed 06/15/10 Active Gastroparesis Confirmed Active H/O: breast problem Confirmed Active Hyperlipidemia Confirmed Active Lyme disease Confirmed Active Osteoarthritis Confirmed Active Pain of breast Confirmed Active Polycystic ovaries Confirmed Active Severe obesity (BMI 35.0-39.9) with comorbidity Confirmed Active Thyroid dysfunction 2 Confirmed Active Diabetes mellitus type 2 in obese Confirmed Active 1left terminal duct procedure 2had two thirds of thyroid removed because of a nodule in 2007. Biopsy inconclusive Social History Social History Type Response Smoking Status Never (less than 100 in lifetime) entered on: 06/30/21 Sex Sex Representation Female (finding) Patient Care team information Care Team Personnel Name: Juan Chou DO Position: Reference Physician Member Role: PCP Address: [address] [place] [address] Internal Medicine [address] Telecom: Care Team Related Persons Name: SHAYNE ROBERSON Name: ERASMO DIAZ Name: JOCELYN DIAZ Insurance Providers Guarantor name: RIGO DIAZ Health Plan Information #: 1 Payer: [facility] FF NON BHP HMO Member Number: NA Policy Number: NA Group Number: NA Health Plan Information #: 2 Payer: [facility] PPO Member Number: NA Policy Number: NA Group Number: NA
== END 2024-06-16 09:37 | disposition home or self-care (01) ==
LOC: HO.HGI 09:24
PROVIDERS: PCP Physician Assistant; Visit Provider Internal Medicine
DX: E11.43 Type 2 diabetes mellitus with diabetic autonomic (poly)neuropathy (principal); K31.84 Gastroparesis
CPT/HCPCS: 98013

== ENCOUNTER → 2024-06-16 09:24 | Outpatient (BNVA) | payer OTHER, SELFPAY | PROVIDERS: PCP Physician Assistant; Visit Provider Internal Medicine ==

== ENCOUNTER 2024-07-04 10:26 | Outpatient (AMB) | payer OTHER, SELFPAY ==
--- NOTE | 2024-07-04 10:40 | A.OFFVIS_ITS ---
Vital Signs 07/04/24 10:42 Height 4 ft 9 in Weight 186 lb BMI 40.2 BP 161/107 H Blood Pressure Location Lt brachial Position Sitting Respiration 16 Pulse 100 Pulse Source Pulse Oximeter Pulse Oximetry (%) 98 Oxygen Delivery Method Room Air Intake Visit Reasons: s/p PT Intake Note: Pt's BP elevated - she states she is experiencing increased pain from a gastroparesis flare up Train Control Technician Required: No Allergies influenza virus vaccine, specific [FLU VACCINE] Allergy (Mild, Verified 07/04/24 10:43) UNKNOWN doxycycline [DOXYCYCLINE] Allergy (Unknown, Verified 07/04/24 10:43) SWELLING vancomycin [VANCOMYCIN] Allergy (Unknown, Verified 07/04/24 10:43) ANAPHYLAXIS erythromycin base Allergy (Verified 07/04/24 10:43) Itching metoclopramide [From Reglan] Allergy (Verified 07/04/24 10:43) Unknown shellfish Allergy (Mild, Uncoded 07/04/24 10:43) Swelling Medication List - Last Reconciled 07/04/24 by Jane Branch LPN blood sugar diagnostic (FreeStyle Lite Strips) Test four times a day or as directed. blood-glucose meter (FreeStyle Lite Meter kit) As Directed bupropion HCl SR 150 mg PO DAILY erythromycin 250 mg PO Q8H glipizide mg PO DAILY lancets (FreeStyle Lancets) Test four times a day or as directed. levothyroxine mcg PO omeprazole 20 mg PO DAILY@0630 phentermine mg PO DAILY topiramate (Topamax) 100 mg PO DAILY HPI HPI s/p PT: Details: History of Present Illness The patient is a 34 year old female presenting with a follow-up for low back pain. She has been managing this condition over the past few months with a regimen including physical therapy, which she found beneficial primarily for her knee pain. Despite this therapy, she continues to experience pronounced hip and low back pain, with the latter radiating predominantly to the right side. The pain often interferes with her ability to sleep, requiring a period to reinitiate sleep if interrupted, though it's not typically the cause of waking. She has not undergone an MRI of the back, although such imaging may be considered in future visits. Her therapeutic journey has largely involved non- pharmacological strategies, continuing with the exercises and stretches at home that were advised by her physical therapist. Notably, her pain was not severe enough to disrupt sleep significantly on most days. Home exercises and attention to proper form during activities like squats are encouraged to further improve her functional status and pain symptoms. Pain Description - Onset and Timing: Pain began prior to initiation of physical therapy six weeks ago; ongoing since. - Quality and Character: Persistent pain with radiation. - Primary Location: Lower back. - Areas of Radiation: Radiates to the hip, right side predominance. - Exacerbating Factors: Inadequate stretching/home exercise may intensify pain. - Relieving Factors: Continuation of physical therapy and home exercise regimen. - Activities/Fuctions Interference: Difficulty sleeping due to pain. Physical Exam Appears afebrile. Alert and oriented. Mood and affect appropriate. Follows and participates in conversation appropriately. Respiratory effort is unlabored. Able to transition from sit to stand unassisted. Ambulates with bilaterally normal heel strike and toe off. Able to stand and walk on toes and heels. Results - Tests and Diagnostics: MRI of the knee performed, unsure of MRI of back. Pain Management - Affect: Pain impacts sleep, occasionally wakes the patient up making it difficult to return to sleep. - Analgesia: Non-pharmacological management primarily; ongoing stretching and physical therapy exercises. - Adverse Effects: Not specified. - Activities of Daily Living: Pain affects sleep, though generally does not wake her up. Impact on daily activities related to pain persistence not elaborated. - Aberrant Drug Related Behaviors: Not discussed. [facility] Medical History New onset type 2 diabetes mellitus Cholecystectomy planned Pre-diabetes Lyme disease Osteoarthritis PCOS (polycystic ovarian syndrome) Gastroparesis Surgical History Hx of colonoscopy History of esophagogastroduodenoscopy (EGD) History of cholecystectomy H/O partial thyroidectomy Family History Maternal Aunt Breast cancer Social History Household Members: Friend(s) Housing: House Housing Other:: s stairs Do you presently have visiting nurse or other home services: No Unable to assess alcohol history related to: Unknown Alcohol intake: never Patient Tobacco Use Status: Never used Tobacco Second Hand Smoke Exposure: No service: No Current occupational status: employed Female Reproductive History Menstrual Age of Menarche: 15 Physical Exam Vital Signs: Last Vital Signs Pulse 100 07/04/24 10:42 Resp 16 07/04/24 10:42 BP 161/107 H 07/04/24 10:42 Pulse Ox 98 07/04/24 10:42 Oxygen Delivery Method Room Air 07/04/24 10:42 BMI result Body Mass Index 40.2 Assessment & Plan Assessment & Plan (1) Low back pain: Code(s): M54.50 - Low back pain, unspecified Category: Medical Plan Plan Patient was informed and verbally consented to the use of an ambient scribe for clinic note documentation during this visit. 1. Low Back Pain Continued emphasis on home exercises and reinforcing non-pharmacological strategies including glute strengthening to target ongoing lower back pain. MRI to be considered in three months should symptoms persist, with current measures maintained due to their partial success. 2. Hip Pain Management will incorporate continuation of physical therapy and home exercises, with a concentration on glute strengthening to address hip discomfort. Monitoring over the next three months recommended, MRI to be reconsidered should symptoms not rachael. Discussion Notes I discussed the likely causes of the patient's ongoing low back and hip pain, and the management plan that includes the continuation of home exercises and strategies learned in physical therapy. We discussed that if the pain issues are not significantly improved in three months, performing an MRI might be a sensible step. I emphasized glute strengthening activities with correct form and recommended the patient continue these exercises with the supervision of a knowledgeable sharepoint trainer. Detailed risks and benefits of imaging and further therapeutic measures were briefly outlined, focusing on the importance of avoiding injections for an adult under 40 unless absolutely necessary. The patient was advised to return in three months if pain persists for potential further diagnostic evaluation. Patient Instructions - Continue home exercise and stretching regimen as instructed by your physical therapist. - Focus on glute strengthening exercises and ensure correct form, particularly during squats. - Follow up with your director personal about any specific exercises that might aid in alleviating pain. - Return for a follow-up visit in three months or sooner if symptoms significantly worsen or do not improve with current management. - Monitor sleep quality and note any changes in pain that might be associated with prolonged rest or activity. - Consider contacting the clinic sooner if there's a marked change in symptoms or lack of improvement. Coding Level of Care Code Est Pt Level 3 (70218) Diagnoses Low back pain M54.50
[2024-07-04 10:42] VITALS: BP 161/107; PULSE 100; RESP 16; O2SAT 98; BMI 40.2
--- OUTSIDE RECORDS SUMMARY | 2024-07-04 11:21 | XMS_ITS | Continuity of Care Document ---
Author Organization [facility] Address [address] [facility] [address] [place] [address]- Care Team Providers Care Pesticide Chemist Name Role Phone Juan Chou DO Primary Care Physician Encounter 05/05/24 - 06/19/24 [facility] [address], [facility] [address] [place] [address]- Attending Physician: Flori Macias MD Admitting Physician: Flori Macias MD Referring Physician: Flori Macias MD Encounter Type: Pre-Outpt Allergies, Adverse Reactions, Alerts Substance Criticality Severity Reaction Reaction Severity Status doxycycline Active vancomycin Active flu vaccines Active Reglan Dystonia Akathisia Active Immunizations Given and Recorded Vaccine Date [...] Refills, Soft Stop, 11/02/21 9:27:00 AM EDT, [id number], Partial fill upon patient request if [...] Refills, Maintenance, 01/24/22 1:00:00 PM EDT, Tablet, [id number], Partial fill upon patient request if the [...] Refills, Maintenance, 12/12/23 2:04:00 PM EDT, Tablet, [id number], Partial fill upon patient request if [...] Position: Reference Physician Member Role: PCP Address: [address] [place] [address] Internal Medicine [address] Telecom: Care Team Related Persons Name: SHAYNE ROBERSON Name: ERASMO DIAZ Name: JOCELYN DIAZ Insurance Providers Guarantor name: RIGO DIAZ Health Plan Information #: 1 Payer: [employer] FF NON BHP HMO Member Number: [id number] Policy Number: NA Group Number: [id number] Health Plan Information #: 2 Payer: [employer] PPO Member Number: [id number] Policy Number: ROSANGELA Group Number: [id number]
--- OUTSIDE RECORDS SUMMARY | 2024-07-04 11:21 | XMS_ITS | Data Portability ---
Author Organization [place] [facility],, RACHELL RAYMUNDO MD Address [address] [address] Care Team Providers Care Pilot [employer] Name Role Phone MARILOU OGDEN Primary Care Provider [phone] Assessment No assessment recorded. Plan of Treatment Reminders Order Date Submit Date Provider Last Modified By Organization Details Last Modified Time Details Appointments None recorded. Lab pap test, thinprep, cervical [address] Pathology [facility], Cytopathology Service, [address] [place] [address], [address], 07:26:29 chlamydia sp, culture, unspecifie d specimen [facility] [place] [address] Pathology [facility], Cytopathology Service, [address] [place] [address], [address], 07:33:03 NG DNA, PCR, genital [address] Pathology [facility], Cytopathology Service, [address] [place] [address], [address], 07:33:03 Referral None recorded. Procedures None recorded. Surgeries None recorded. Imaging US, pelvis, transabdom inal + transvagin al - patient may not be able to tolerate vaginal probe, please proceed with that slowly until she is certain it is tolerableH istory of endometrio sis 2020 [facility] Orders, [address], [address], [place], [address], 20:02:34 Medication Orders None recorded. Patient TargetsNo targets recorded. Patient Instructions Encounter Date Encounter Id Patient Instructions Last Modified By Organization Details Last Modified Time 02/28/2021 [id number] learning about healthy weight [email or web address] Not available 02/28/2021 10:33:21 gastroparesis: care instructions Not available 02/28/2021 10:35:48 endometriosis: care instructions Not available 02/28/2021 10:35:48 learning about control: the shot Not available 02/28/2021 10:35:48 shot for control: care instructions [email or web address] Not available 02/28/2021 10:35:48 She is here as a new patient, for annual exam. She has not seen a drink mixer doctor since 2017. She has been sexually [...] go to the hospital. 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 gonor rhoea e: NEGAT SVITLANA Compl eted on 03-02 [facility] MAT[facility] N: Z12.4 SOURC E: ThinP rep Pap for CT/GC Gross Descr iptio n: ThinP rep Vial Recei maxwell. Physi cians MAVERICK ZHOU/ [phone] Not Available [facility], Cytopathology Service [address] [place], [address], 03/02/2021 14:00:29 02/29/20 21 02/28/2021 PAP1C ASE [email or web address] ThinP rep Pap, Image d: ATYPI DELORES [...] Z12.4 , Z01.4 19, Z11.3 Not Available [facility], Cytopathology Service [address] [place], [address], 03/24/2021 08:02:22 04/01/20 21 04/01/2021 US, pelvi s, trans abdom inal + trans vagin al No observ ation record ed. [facility] [address] [place], [address], 04/04/2021 13:14:53 Result Notes None recorded. Problems Name Problem SNOMED Code Status Onset Date Resolution Date Notes Provider Name and Address Organization Details Recorded Time Endometrio sis (clinical) 368391394 Active 2020 Rachell Raymundo MD [address], [place], [address], [place] [facility], 10:35:02 Gastropare sis syndrome 703731073 Active 2020 Rachell Raymundo MD [address], [place], [address], [place] [facility], 10:35:10 Unable to have sexual intercours e 444772245 Active 2020 cannot tolerate vaginal intercours e, or speculum for pap smear, vaginally Rachell Raymundo MD [address], [place], [address], [place] [facility], 12:41:41 Problem Notes None recorded. Procedures Surgical History Date Name Laterality Status Provider Name and Address Organization Details Recorded Time 02/16/20 15 cholecystectomy completed Chrissy Meczywor [place] [facility], 02/28/2021 10:03:55 02/15/20 11 Unlisted procedure breast completed Chrissy [place]eczywor [place] [facility], 02/28/2021 10:03:42 Thyroid Surgery completed Chrissy [place]eczywor [place] [facility], 02/28/2021 10:02:43 Imaging Results Imaging Date Name Status LastModified by Organization Details LastModified Time 04/01/2021 US, pelvis, transabdominal + transvaginal completed [place] [id number] [place], [address], 04/04/2021 13:14:53 Procedure Notes None recorded. Medical Equipment None Reported. Allergies Allergen ID Allergen Name Allergen Category Reaction Reaction Severity Criticality Documentation Date Start Date Code Code System Note Provider Name and Address Organization Details Recorded Time 07031 vancomyci n medicatio n anaphylax is Not available Not available 02/28/2021 58490 RxNorm Chrissy Meczywor null, [place] - [facility], 09:55:52 [address]03 doxycycli ne Not available facial swelling Not available Not available 02/28/2021 3640 RxNorm Chrissy Meczywor null, [place] [facility], 09:56:07 52325 influenza virus vaccine, specific Not available anaphylax is Not available Not available 02/28/2021 43660 UNK Chrissy Meczywor null, [place] - [facility], 09:56:40 43046 Reglan medicatio n other severe Not available 02/28/2021 9230 RxNorm Chrissy Meczywor null, [place] [facility], 09:57:06 Medications Name Sig Start Date [...] Address Organization Details Last Updated DateTime 1 36446.3 7 g 40.7 kg/m2 144.78 cm 97.4 [degF] 97 /min 132 mm[Hg] 88 mm[Hg] Chrissy Virgen in [facility], 09:55:33 Social History Question Answer Notes LastModified by Organizat ion Details LastModified Time Tobacco Smoking Status Never Smoker [place] Chatman in [facility], 02/28/2021 10:01:18 What Is Your Level [...] Or The Highest Degree You Have Received? [id number] Information not available 02/28/2021 What Is Your [...] Anxious, Or Unable To Sleep At Night)? [id number] Information not available 02/28/2021 Do You Use [...] SNOMED-CT Code Diagnosis ICD10 Code Diagnosis Note [id number] MD RACHELL Malhotra MD [address] [facility] [address] [place] [address] 02/28/2021 09:44:25 02/28/2021 13:15:24 Specialized medical examination 15894130 Z01.419 Venereal d isease screening 752116029 Z11.3 Pain in pelvis 78557916 R10.2 Gastropare sis syndrome 754860145 K31.84 Endometrio sis (clinical) 975849875 N80.9 Health Concerns Section Related Observation LastModified by Organization Detai ls LastModified Time None Recorded Concern Status LastModified by Organization Details LastModified Time None Recorded Advance Directives Directive None Recorded Payers Encounter Date Sequence Insurance Name Policy Number Policy Lee Covered Member ID Lee Member ID Guarantor Name 02/28/2021 1 [facility] Nila Wesley [id number] Nila Wesley Notes Date Note Type Note Provider Name and Address Organization Details Recorded Time 02/28/2021 text/html She is here as a new patient, for annual exam. She has not seen a drink mixer doctor since 2017. She has been sexually [...] go to the hospital. 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 Rachell Raymundo MD [address] [facility],[address], [place], [address], [place] [facility], 02/28/2021 12:42:11 OBGyn Episode No OBEpisode recorded.
--- OUTSIDE RECORDS SUMMARY | 2024-07-04 11:21 | XMS_ITS | Patient Health Record ---
Author Organization [facility] Address [address] [place] [address] Care Team Providers Care Mohel Name Role Phone Janny Peoples Primary Care [...] Code Notes Problem Gastroparesis (K31.84) Active confirmed [id number] PLAN OF TREATMENT No Information Insurance Providers Payer Name Payer Address Payer Phone Subscriber Number Group Number Insured Name Patient Relationship to Insured Coverage Start Date Coverage End Date [employer] [address] [place] [phone] [id number] RIGO DIAZ Self - patient is the insured MEDICAL (GENERAL) HISTORY Medical History History ICD Code PCOs - polycystic ovarian syndrome gastroparesis thyroid nodule - partial thyroid removed lyme disease osteoarthritis Surgical History Surgery Date(Month/Year) thyroidectomy - nodule and partial thyro id duct removal - left breast cholecystectomy
--- OUTSIDE RECORDS SUMMARY | 2024-07-04 11:22 | XMS_ITS | Data Portability ---
Author Organization [facility], Home Service Address [address] [place] [address] Assessment Encounter Date Assessment Date Assessment LastModified [...] Modified Time Details Appointments None recorded. Lab CBC w/ auto diff 2022 023 [facility], [address] [place] [address], [place], [address], 3 14:30:48 ESR (erythrocy te sedimentat ion rate), blood 2022 023 [facility], [address] [place] [address], [place], [address], 3 14:30:49 C-reactive protein, quantitati ve, serum or plasma 2022 023 [facility], [address] [place] [address], [place], [address], 3 14:30:49 C4 (complemen t), serum or plasma 2022 023 [facility], [address] [place] [address], [address], 3 12:16:34 iga Ab, qualitativ e, serum 2022 023 [facility], [address] [place] [address], [address], 3 11:25:15 ige, total, serum 2022 023 [facility], [address] [place] [address], [address], 3 14:30:48 IgM Ab, QL, serum or plasma 2022 023 [facility], [address] [place] [address], [address], 3 14:30:49 culture, wound - stomach wound 2022 023 [facility], [address] [place] [address], [address], 3 12:49:06 vitamin D, 25-hydroxy , total, serum 2022 023 [facility], [address] [place] [address], [address], 3 14:30:49 vitamin B12, serum 2022 023 [facility], [address] [place] [address], [address], 3 14:30:49 folate, serum 2022 023 [facility], [address] [place] [address], [address], 3 14:30:48 TSH + free T4, serum 2022 023 [facility], [address] [place] [address], [address], 3 14:30:49 thyroid peroxidase (tpo) Ab, serum 2022 023 [facility], [address] [place] [address], [address], 3 14:30:48 thyroglobu mike Ab, serum 2022 023 [facility], [address] [place] [address], [address], 3 14:30:48 vitamin D, 25-hydroxy , total, serum 2021 [facility], [address] [place] [address], [address], 11:27:54 vitamin B12 + folate, serum or blood 2021 [facility], [address] [place] [address], [address], 11:27:54 iron + total iron-rakan ng capacity (TIBC), serum 2021 [facility], [address] [place] [address], [address], 11:27:54 ferritin, serum or plasma 2021 [facility], [address] [place] [address], [address], 2 11:27:54 CBC w/ auto diff 2021 [facility], [address] [place] [address], [address], 11:27:54 hemoglobin A1c, QN, blood 2021 [facility], [address] [place] [address], [address], 11:27:54 dhea-sulfa te, serum 2021 [facility], [address] [place] [address], [address], 11:29:08 testostero ne, free + total, serum 2021 [facility], [address] [place] [address], [address], 13:21:37 lh + FSH, serum 2021 [facility], [address] [place] [address], [address], 12:44:18 prolactin, serum 2021 [facility], [address] [place] [address], [address], 11:29:08 estradiol, serum 2021 [facility], [address] [place] [address], [address], 12:03:[address] referral - complex medical patient with PCOS, recent pap smear showing atypical cells, needs [facility] oncology from this reason, is unable [...] has a question of endometros is 2023 024 diomedes Macias MD, [address] [place], [address], 4 08:15:10 endocrinol ogy referral 2023 024 [facility], [address] [place], [address], 4 10:20:[address] referral 2023 024 [email or web address] Flori Macias MD, [address] [place], [address], 4 09:16:[address] referral 2022 023 [facility], [address] [place] [address] [place], [address], 3 08:18:45 rheumatolo gist referral 2021 [facility]22 [facility], [address] [place], [address], 2 08:30:25 Procedures None recorded. Surgeries None recorded. Imaging MAMMO, diagnostic , digital, unilateral - continued breast lesion and asymmetry of the right breast, needs to be monitored every 6 mos 2021 022 [facility], [address] [place], [address], 2 08:38:28 Medication Orders phentermin e 15 mg capsule 2023 025 [facility], [address] [place], [address], 5 11:27:00 glipizide 5 mg tablet 2023 024 [facility], [address] [place], [address], 4 15:56:57 Hibiclens 4 % topical liquid 2022 023 [facility], [address] [place], [address], 3 14:28:16 cephalexin 500 mg capsule 2022 023 [facility] [address] [place], [address], 4 13:25:36 topiramate 100 mg tablet 2021 [facility], [address] [place], [address], 2 16:54:02 phentermin e 15 mg capsule 2021 [facility], [address] [place], [address], 5 11:26:57 phentermin e 15 mg capsule 2021 022 [facility], [address] [place] [address], [address], 5 11:26:57 duloxetine 20 mg capsule,de layed release 2021 [facility], [address] [place], [address], 3 14:02:51 bupropion HCl SR 150 mg tablet,12 hr sustained- release 2021 [facility], [address] [place], [address], 2 11:26:36 promethazi ne 25 mg tablet 2021 [address] [address] [place], [address], 4 16:28:19 Patient TargetsNo targets recorded. Patient InstructionsNo instructions recorded. 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 Referral for Osteoarthritis worsening arthritis pain (Multiple chronic referrals) Referring Physician: [facility], Encounter Date: 02/28/2022 Photographer Helper Referral for Ma mmography abnormal PCOS and possible endometrosis Referring Physician: [facility], Encounter Date: 01/01/2023 Photographer Helper Referral for Po lycystic ovary syndrome needs PCP referral Referring Physician: [facility], Encounter Date: 11/23/2023 Photographer Helper Referral for At ypical squamous cells of undetermined significance on cervical Papanicolaou smear fu referral complex medical patient with PCOS, recent pap smear showing atypical cells, needs [facility] oncology from this reason, is unable [...] bilat eral No observ ation record ed. [address] [place], [address], 03/13/2022 09:45:02 03/13/20 22 03/10/2022 jono GARAY No observ ation record ed. [address] [place], [address], 03/13/2022 09:45:15 07/03/19 23 06/28/2022 XR, chest , 2 view No observ ation record ed. [facility] (Medical Records) [address] [place], [address], 07/04/2022 14:03:04 09/13/19 23 09/12/2022 MAMMO , diagn ostic , digit al, unila teral No observ ation record ed. [address] [place], [address], 09/13/2022 14:13:26 03/08/20 23 03/08/2023 XR, knee No observ ation record ed. [address] (Medical Records) [address] [place], [address], 03/09/2023 06:40:24 04/03/20 23 04/03/2023 MAMMO , diagn ostic , digit al, unila teral No observ ation record ed. [address] [place], [address], 04/03/2023 14:28:51 06/20/19 24 06/19/2023 MRI, knee, w/ contr ast No observ ation record ed. [facility] [address] [place], [address], 06/20/2023 15:51:45 11/05/19 24 10/23/2023 US, pelvi s No observ ation record ed. [email or web address] [facility] (Medical Records) [address] [place], [address], 11/05/2023 14:54:50 12/12/19 24 12/12/2023 CT, abdom en + pelvi s, w/o contr ast No observ ation record ed. [facility] (Medical Records) [address] [place], [address], 12/12/2023 08:50:42 03/02/20 24 03/02/2024 XR, lumba r spine , 2 view No observ ation record ed. [facility] (Medical Records) [address] [place], [address], 03/03/2024 09:26:27 03/02/20 24 03/02/2024 XR, wrist + hand No observ ation record ed. [address] (Medical Records) [address] [place], [address], 03/03/2024 09:26:53 03/02/20 24 03/02/2024 XR, ankle No observ ation record ed. [address] (Medical Records) [address] [place], [address], 03/03/2024 09:27:12 03/02/20 24 03/02/2024 XR, knee No observ ation record ed. [address] (Medical Records) [address] [place], [address], 03/03/2024 09:27:30 03/08/20 24 03/08/2024 CT, abdom en + pelvi s, w/o contr ast No observ ation record ed. [facility] (Medical Records) [address] [place], [address], 03/09/2024 10:29:31 03/20/20 24 03/20/2024 CT, abdom en + pelvi s, w/o contr ast No observ ation record ed. [facility] (Medical Records) [address] [place], [address], 03/20/2024 12:14:42 05/29/19 25 05/29/2024 gastr ic empty ing study (PROC ) No observ ation record ed. [facility] (Medical Records) [address] [place], [address], 05/29/2024 19:29:28 Result Notes None recorded. Problems Name Problem SNOMED Code Status Onset Date Resolution Date Notes Provider Name and Address Organization Details Recorded Time Type 2 diabetes mellitus 90309862 Active 2020 CARON HALE [address] [place] [address], [address], [facility] 14:16:53 Polycysti c ovary syndrome 648537103 Active 2020 CARON HALE [address] [place] [address], [address], [facility] 14:22:59 Gastropar esis due to diabetes mellitus 626478048 Active 2020 CARON HALE [address] [place] [address], [address], [facility] 14:23:10 Essential hypertens ion 99528331 Active 2020 CARON HALE [address] [place] [address], [address], [facility] 14:23:37 Hyperlipi demia 76337188 Active 2020 CARON HALE [address] [place] [address], [address], [facility] 14:23:49 Lyme disease 65013126 Active 2020 CARON HALE [address] [place] [address], [address], [facility] 14:38:28 Osteoarth ritis 659753931 Active 2020 CARON HALE [address] [place] [address], [address], [facility] 14:38:41 Thyroidec usman Active 2021 CARON HALE [address] [place] [address], [address], [facility] 2 16:25:21 Insomnia 706121348 Active 2021 CARON HALE [address] [place], [address], [facility] 2 12:29:19 Obesity 346860807 Active 2021 CARON HALE [address] [place], [address], [facility] 2 12:30:19 Uvulitis 463671685 Active 2021 CARON HALE [address] [place] [address], [address], [facility] 2 14:30:20 Cough 96728705 Active 2021 CARON HALE [address] [place] [address], [address], [facility] 2 14:31:29 Mammograp hy abnormal 455719290 Active 2021 CARON HALE [address] [place] [address], [address], [facility] 2 16:26:17 Lesion of breast 856561328 Active 2021 CARON HALE [address] [place] [address], [address], [facility] 2 14:01:55 Loss of hair 880672511 Active 2021 CARON HALE [address] [place] [address], [address], [facility] 2 11:21:55 Anxiety 89265469 Active 2021 CARON HALE [address] [place] [address], [address], [facility] 2 11:24:40 Nausea and vomiting 32832439 Active 2021 CARON HALE [address] [place] [address], [address], [facility] 2 11:38:11 Overweigh t 610130268 Active 2021 CARON HALE [address] [place] [address], [address], [facility] 2 13:03:41 Depressiv e disorder 64880496 Active 2021 CARON HALE [address] [place] [address], [address], [facility] 2 16:43:10 Chronic cough 54172018 Active 2022 CARON HALE [address] [place] [address], [address], [facility] 3 14:37:58 Loss of scalp hair 640091860 Active 2022 CARON HALE [address] [place] [address], [address], [facility] 3 15:43:55 Gastropar esis due to type 2 diabetes mellitus 776515397 Active 2022 CARON HALE [address] [place] [address], [address], [facility] 3 14:20:28 Vesicular eruption 42247677 Active 2022 CARON HALE [address] [place] [address], [address], [facility] 3 14:21:08 Staphyloc occal infection of skin 324927220 Active 2022 CARON HALE [address] [place] [address], [address], [facility] 3 13:15:06 Pain of left knee joint 415723992969 107 Active 2023 CARON HALE [address] [place] [address], [address], [facility] 4 09:32:19 Degenerat ion of lumbar intervert ebral disc 05017578 Active 2023 CARON HALE [address] [place] [address], [address], [facility] 4 15:28:33 Pain of left wrist 551058359201 102 Active 2023 CARON HALE [address] [place] [address], [address], [facility] 4 09:06:05 Pain of left ankle joint 734263232945 58012 Active 2023 CARON HALE [address] [place] [address], [address], [facility] 4 09:06:20 Metabolic acidosis 69064434 Active 2023 CARON HALE [address] [place] [address], [address], [facility] 4 09:07:02 Atypical squamous cells of undetermi shweta significa nce on cervical Papanicol aou smear 160621882 Active 2023 CARON HALE [address] [place] [address], [address], [facility] 4 15:46:53 Notes:Some problems listed i n Document: #[id number] could not be added to this patient's chart. Please review this document and add these problems to the patient's chart manually as needed. Problem Notes None recorded. Procedures Surgical History None recorded. Imaging Results Imaging Date Name Status LastModified by [facility]iz [facility] Details LastModified Time 03/10/2022 MAMMO, screening, digital, bilateral completed [address] [place], [address], 03/13/2022 09:45:02 03/10/2022 US, breast completed [address] [place], [address], 03/13/2022 09:45:15 06/28/2022 XR, chest, 2 view completed [facility] (Medical Records) [address] [place], [address], 07/04/2022 14:03:04 09/12/2022 MAMMO, diagnostic, digital, unilateral completed [address] [place], [address], 09/13/2022 14:13:26 03/08/2023 XR, knee completed [address] (Medical Records) [address] [place], [address], 03/09/2023 06:40:24 04/03/2023 MAMMO, diagnostic, digital, unilateral completed [address] [place], [address], 04/03/2023 14:28:51 06/19/2023 MRI, knee, w/ contrast completed [facility] (Medical Records) [address] [place], [address], 06/20/2023 15:51:45 10/23/2023 US, pelvis completed [address] (Medical Records) [address] [place], [address], 11/05/2023 14:54:50 12/12/2023 CT, abdomen + pelvis, w/o contrast completed [facility] (Medical Records) [address] [place], [address], 12/12/2023 08:50:42 03/02/2024 XR, lumbar spine, 2 view completed [address] (Medical Records) [address] [place], [address], 03/03/2024 09:26:27 03/02/2024 XR, wrist + hand completed [address] (Medical Records) [address] [place], [address], 03/03/2024 09:26:53 03/02/2024 XR, ankle completed [email or web address] [facility] (Medical Records) [address] [place], [address], 03/03/2024 09:27:12 03/02/2024 XR, knee completed [email or web address] [facility] (Medical Records) [address] [place], [address], 03/03/2024 09:27:30 03/08/2024 CT, abdomen + pelvis, w/o contrast completed [facility] (Medical Records) [address] [place], [address], 03/09/2024 10:29:31 03/20/2024 CT, abdomen + pelvis, w/o contrast completed [facility] (Medical Records) [address] [place], [address], 03/20/2024 12:14:42 05/29/2024 gastric emptying study (PROC) completed [facility] (Medical Records) [address] [place], [address], 05/29/2024 19:29:28 Procedure Notes None recorded. Medical Equipment None Reported. Allergies Allergen ID Allergen Name Allergen Category Reaction Reaction Severity Criticality Documentation Date Start Date Code Code System Note Provider Name and Address Organization Details Recorded Time 4899 shellfish derived food,medi cation other mild Not available 02/11/2021 64367 UNK mild facia l swell ing CARON HALE [address] [place], [address], [facility] 1 14:16:06 7170 doxycycli ne Not available Not available Not available Not available 01/01/2023 3640 RxNorm CARON HALE [address] [place], [address], [facility] 3 14:27:08 7171 vancomyci n medicatio n Not available Not available Not available 01/01/2023 83384 RxNorm CARON HALE [address] [place], [address], [facility] 3 14:27:33 7172 influenza A (H1N1) medicatio n Not available Not available Not available 01/01/2023 51077 UNK CARON HALE [address] [place], [address], [facility] 3 14:27:46 Medications Name Sig Start Date Stop Date Status Note LastModified by Organization Details LastModified Time freestyle lite blood glucose monito ring system w/device kit active Not Available Not Available Not Available freestyle lancets misc active Not Available Not Available Not Available cyclobenzap rine 10 mg tablet TAKE 1 TAB (10MG) BY MOUTH 3 TIMES A DAY NEEDED (MUSCLE SPASM/LILIANA N). 11/22 completed Not Available Not Available Not Available metformin 500 mg tablet Take 1 tablet twice a day by oral route. 02/28 completed Not Available Not Available Not Available bupropion HCl SR 150 mg tablet,12 hr sustained-r elease TAKE 1 TABLET BY MOUTH EVERY DAY active Not Available Not Available No t Available cefuroxime axetil 250 mg tablet 12/30 completed Not Available Not Available Not Available azithromyci n 250 mg tablet TAKE 2 TABLETS (500 MG) BY ORAL ROUTE ONCE DAILY FOR 1 DAY THEN 1 TABLET (250 MG) BY ORAL ROUTE ONCE DAILY FOR 4 DAYS 10/11 completed Not Available Not Available Not Available fluconazole 150 mg tablet TAKE 1 TABLET (150 [...] completed Not Available Not Available Not Available phentermine 15 mg capsule TAKE 1 CAPSULE BY MOUTH EVERY DAY 06/20 completed Not Available Not Available Not Available topiramate 25 mg tablet TAKE 1 TABLET BY MOUTH EVERY DAY FOR 30 DAYS 02/28 completed Not Available Not Available Not Available phentermine 37.5 mg tablet TAKE 1 TABLET BY MOUTH EVERY DAY DIRECTED 11/22 completed Not Available Not Available Not Available prochlorper azine maleate 10 mg tablet TAKE 1 TABLET BY MOUTH EVERY 8 HOURS NEEDED FOR NAUSEA AND VOMITING active Not Available Not Available No t Available phentermine 30 mg capsule TAKE 1 CAPSULE BY MOUTH EVERY DAY active Not Available Not Available No t Available ondansetron 8 mg disintegrat ing tablet Place 1 tablet twice a day by transling ual route. 01/01 completed Not Available Not Available Not Available levothyroxi ne 25 mcg tablet TAKE 1/2 TABLET DAILY BY MOUTH active Not Available Not Available No t Available erythromyci n 250 mg tablet TAKE 1 TABLET BY MOUTH EVERY 8 HOURS (3 TIMES A DAY) WITH MEALS active Not Available Not Available No t Available amoxicillin 875 mg tablet TAKE 1 TABLET BY MOUTH EVERY 12 HOURS FOR 14 DAYS 08/27 completed Not Available Not Available Not Available dexamethaso ne 1 mg tablet TAKE 1 TABLET BY MOUTH ONCE 02/28 completed Not Available Not Available Not Available cephalexin 500 mg capsule TAKE 1 CAPSULE BY MOUTH EVERY 6 HOURS FOR 5 DAYS 08/27 completed Not Available Not Available Not Available lidocaine 5 % topical patch 11/22 completed Not Available Not Available Not Available promethazin e 25 mg tablet TAKE 1 TAB BY MOUTH EVERY 6 HOURS NEEDED FOR NAUSEA AND VOMITING 11/22 completed Not Available Not Available Not Available omeprazole 20 mg capsule,del ayed release TAKE 1 CAPSULE BY MOUTH EVERY DAY AT 0630 active Not Available Not Available No t Available codeine 10 mg-guaifene sin 100 mg/5 mL oral liquid Take 10 mL every 4 hours by oral route as needed for 7 days. 12/30 completed Not Available Not Available Not Available levofloxaci n 750 mg tablet Take 1 tablet every [...] completed Not Available Not Available Not Available ondansetron 4 mg disintegrat ing tablet 02/28 completed Not Available Not Available [...] Not Available Not Available No t Available bupropion HCl XL 150 mg 24 hr [...] Not Available Not Available duloxetine 20 mg capsule,del ayed release TAKE 1 CAPSULE BY MOUTH EVERY DAY 01/01 completed Not Available Not Available Not Available zolpidem ER 12.5 mg tablet,exte nded release,mul tiphase TAKE 1 TABLET BY MOUTH AT BEDTIME [...] Address Organization Details Last Updated DateTime 01/01/2023 52928.22 g 102 /min 100 % 100 % CARON HALE [address] [place], [address], [facility] 14:02:25 Date Recorded Body height Body mass index (BMI) Body weight Heart rate Oxygen saturation Oxygen saturation in Arterial blood by Pulse oximetry Systolic blood pressure Diastolic blood pressure Provider Name and Address Organization Details Last Updated DateTime 4 144.78 cm 36.8 kg/m2 20434.7 g 105 /min 98 % 98 % 138 mm[Hg] 80 mm[Hg] Sunday Santo [facility] 4 16:29:45 Social History Question Answer Notes LastModified by Organizat ion Details LastModified Time Tobacco Smoking Status Never Smoker CARON HALE [address] [place], [address], [facility] 01/01/2023 14:05:04 What Was The [...] SNOMED-CT Code Diagnosis ICD10 Code Diagnosis Note [id number] CARON HALE [facility] [address] [place] [address],Paula [place] [address] 02/11/2021 13:46:00 02/11/2021 15:39:08 Essential hypertension 29394289 I10 stable Gastropare sis due to diabetes mellitus 526240847 E13.43 would like to find new GI Hyperlipidemia 62526107 E78.2 stable last check prior to transfer Polycystic ovary syndrome 730122852 E28.2 will submit referral to gynecology Type 2 gladis betes mellitus 02440298 E11.9 will fu with endocrine referral for evaluation Mammograph ic mass of right breast 3275029939 8652647 R92.8 needs fu in April Osteoarthritis 576514704 M15.3 due to Lyme diseasemos tly knees and hips but it does move aroundlast rheumatolo gy visit was 10 years ago Genetic sc reening for disorder 726979541 Z13.71 will fu with genetic screening Fatigue 43510531 R53.83 will fu with testing rheum panel and recheck TSH with T3 [id number] CARON HALE [facility] [address] [facility] [address] 03/21/2021 08:11:44 03/21/2021 16:21:41 Gastroparesis due to type 2 diabetes mellitus 700405412 E11.43 working on diet and using meds for ER Nausea and vomiting 1693 1999 R11.2 has zofran script from ER Diarrhea 84124870 R19.7 will continue on the dissolvabl e N/V mednot interested in a suppositor y Tachycardia 6942963 R00. 0 will fu with event monitor [id number] CARON HALE [facility] [address] [facility], [place] [address] 05/10/2021 09:15:21 05/10/2021 11:28:29 Tear of medial meniscus of knee 642682550 S83.242A will fu with MRI to confirm [place] [id number] CARON HALE [facility] [address] [facility], [facility] [facility] [place] [address] 06/17/2021 08:20:00 06/20/2021 13:50:14 Panic disorder 803802482 F41.0 sent referralwi ll fu if the patient is not contacted Gastropare sis due to type 2 diabetes mellitus 284121569 E11.43 resolved from recent hospital trip Type 2 gladis betes mellitus 76549724 E11.9 waiting on endo appt Essential hypertension 76373748 I10 stable Gastropare sis due to diabetes mellitus 731695405 E13.43 waiting for GI appt Hyperlipidemia 27685618 E78.2 stable last check prior to transfer Insomnia 476306014 G47.0 1 will start at 10 mg, the patient has gastropare sis, does not digest and absorb things wellwill start at a higher dose [id number] CARON [facility] [address] [facility],[place] [address] 07/22/2021 16:18:01 07/25/2021 16:33:10 Type 2 diabetes mellitus 23133032 E11.9 stable History of thyroidectomy 855715955 Z90.09 fu with endocrine Obesity 757618759 E66.8 start topimaxfu in two weeks [id number] CARON HALE [facility] Internal [facility] [address] [facility] [address],[place] [address] 10/11/2021 13:34:05 10/11/2021 14:40:37 Uvulitis 916964490 K12.2 will start on z leonard for prevention of infection and for anti-infla mmatory properties poor reaction with steriods, will try meloxicam in combo Cough 72296576 R05.1 will start on cough suppressan t as the cough is the main source of her continued discomfort [id number] CARON HALE [facility] [address] [facility] [address],[place] [address] 02/28/2022 10:57:02 02/28/2022 13:19:24 Loss of hair 855049270 L63.0 talking to endocrinol ogy Anxiety 62649135 F41.1 will restart on bupropionw ill help with weight loss Polycystic ovary syndrome 183865730 E28.2 might be having a flare up Osteoarthritis 028145459 M15.3 due to Lyme diseasemos tly knees and hips but it does move aroundlast rheumatolo gy visit was 10 years ago Lesion of breast 5818262 04 N60.01 will fu with MM screening, every 6 mos Nausea and vomiting 1693 2000 R11.2 will trial alternativ e nausea med prior to bed [id number] CARON HALE [facility] Internal [facility] [address] [facility] [address],[place] [address] 05/01/2022 09:36:04 05/01/2022 16:59:18 Type 2 diabetes mellitus 60794572 E11.9 stabledisc ussed other meds to use for both diabetes and weight loss Overweight 145519937 E66 .3 discussed increasing the topimax and waiting to see [facility] Depressive disorder 6954 3068 F33.9 start duloxetine [id number] CARON HALE [facility] Internal [facility] [address] [facility] [address],[place] [address] 01/01/2023 13:58:24 01/01/2023 15:32:37 Anxiety 60598803 F41.1 will restart on bupropionw ill help with weight loss Depressive disorder 3548 9007 F33.9 start duloxetine Type 2 gladis betes mellitus 92138311 E11.9 stabledisc ussed other meds to use for both diabetes and weight loss Gastropare sis due to type 2 diabetes mellitus 575830392 E11.43 resolved from recent hospital trip Vesicular eruption 74858 008 R23.8 will set up with blood work and wound culturesta rt on keflex and hibiclens will set up with lab work History of thyroidectomy 866135958 Z90.09 fu with endocrine Lesion of breast 2921967 04 N60.01 will fu with MM screening, every 6 mos Mammography abnormal 168 235990 R92.8 will set up with new CONSULTANT RN closer to patient [id number] CARON HALE [facility] Internal [facility] [address] [facility],[place] [address] 11/23/2023 16:10:36 11/27/2023 09:16:22 Depression screening 810091556 Z13.31 stable Polycystic ovary syndrome 482793014 E28.2 need CONSULTANT RN referral Gastropare sis due to type 2 diabetes mellitus 064368649 E11.43 resolved from recent hospital trip Type 2 gladis betes mellitus 56571765 E11.9 stable Overweight 475315444 E66 .3 discussed increasing the topimax and waiting to see if ozempic or mounjaro come back into [facility] try one of those if [facility] [id number] Eunice Mayer [facility] Internal Medicine [address] [facility],[place] [address] 04/16/2024 09:44:20 04/16/2024 16:00:21 Overweight 106141340 E66.3 restart Type 2 gladis betes mellitus 84970349 E11.9 stable Gastropare sis due to type 2 diabetes mellitus 205377170 E11.43 resolved from recent hospital tripneeds alt med for diabetes control Atypical s quamous cells of undetermined significance on cervical Papanicolaou smear 930553957 R87.610 will resubmit referral againhave hr follow up with their office again Health Concerns Section Related Observation LastModified by Organization Detai ls LastModified Time None Recorded Concern Status LastModified by Organization Details LastModified Time None Recorded Advance Directives Directive None Recorded Payers Encounter Date Sequence Insurance Name Policy Number Policy Lee Covered Member ID Lee Member ID Guarantor Name 02/28/2022 1 [facility] [id number] Nila Werbiskis [id number] Nila Werbiskis 05/01/2022 1 [facility] [id number] Nila Werbiskis [id number] Nila Werbiskis 01/01/2023 1 [facility] [id number] Nila Werbiskis [id number] Nila Werbiskis 11/23/2023 1 [facility] [id number] Nial Werbiskis [id number] Nial Werbiskis 04/16/2024 1 [facility] [id number] Nila Werbiskis [id number] Nila Werbiskis Notes Date Note Type Note Provider Name and Address Organization Details Recorded Time 2 text/html the patient reports that she has been having the weight gain and hair lossshe is also throwing up in her sleep again, sleeps on her side the patient reports that she is talking to endo about her thyroidwill be testing CARON HALE [address] [place], [address], [facility] 02/28/2022 11:40:21 2 text/html f/u [...] for the MRI results CARON HALE [address] [place], [address], [facility] 05/01/2022 16:58:49 3 text/html c/o rash rash, vesicles, red base, clear dischargewith gastroparesis hasn't been able to keep her meds down and could be having issues with the generic levomay be more suited toward synthroid will set up with blood work will f/u with patient after work up needs new CONSULTANT RN CARON HALE [address] [facility], [place], [address], [facility] 01/01/2023 14:38:36 4 text/html medication f/u avoid zepbound due to h/x of gastroparesishealth emmett won't cover wegovy and is back-ordereddiscussed maybe a short trial of rybelsus will have her try a free sample, monitor how she tolerates it wellwill also work well for her diabetes to control her sugar has f/u with PCOS with [facility] on/senior trainer who will be doing her procedures now the patient and I discussed other options for the new nerve damage like acupuncture and PTalso discussed possible use of a TENS unit to see if she likes it and will talk about her CARON HALE [address] [facility], [place], [address], [facility] 11/23/2023 17:09:21 4 text/html hospital f/u The patient is participating in this appointment via telemedicine communication with a phone call/video calling service (Doxy)The patient consents to use of these platforms [...] the patient will need additional [facility] for [facility] gynoncolgystated they need verbal order which they are received currently liquid diet, protein shakeslimited solids on multivitamin currently needs to discuss f/u with endoneeds additional referral for t2dm CARON HALE [address] [place], [address], [facility] 04/16/2024 15:59:11 OBGyn Episode No OBEpisode recorded.
--- OUTSIDE RECORDS SUMMARY | 2024-07-04 11:22 | XMS_ITS | Continuity of Care Document ---
Author Organization [facility] BOX ESTIMATOR Oncolog y Address [address] [place] [address] Care Team Providers Care Vapor Coater Name Role Phone Juan Chou DO Primary Care Physician Encounter [facility] ACCT R [id number] Date(s): 05/26/24 - 06/25/24 [facility] BOX ESTIMATOR Oncology [address] [place] [id number] Attending Physician: Jeniffer Elias Admitting Physician: Jeniffer Elias Referring Physician: Admtr ArRui Encounter Type: Triage Allergies, Adverse Reactions, Alerts [...] Refills, Soft Stop, 11/02/21 9:27:00 AM EDT, [facility]/pharmacy #[id number], Partial fill upon patient request if [...] Maintenance, 01/24/22 1:00:00 PM EDT, Tablet, [id number], Partial fill upon patient request if the [...] Position: Reference Physician Member Role: PCP Address: [address] [place] [address] Internal Medicine [address] Telecom: Care Team Related Persons Name: SHAYNE ROBERSON Name: ERASMO DIAZ Name: JOCELYN DIAZ Insurance Providers Guarantor name: RIGO DIAZ Health Plan Information #: 1 Payer: [facility] FF NON BHP HMO Member Number: NA Policy Number: NA Group Number: NA
== END 2024-07-04 11:05 | disposition home or self-care (01) ==
PROVIDERS: PCP Physician Assistant; Visit Provider Internal Medicine
DX: M54.50 Low back pain, unspecified (principal)
CPT/HCPCS: 99213

== ENCOUNTER 2024-09-10 14:16 | Emergency (ER) | payer OTHER, SELFPAY ==
--- NOTE | ~2024-09-10 | CT_ITS ---
EXAMINATION: CT SOFT TISSUE NECK WITH CONTRAST CLINICAL INFORMATION: Foreign body sensation to the throat. COMPARISON: None available. TECHNIQUE: Following the intravenous administration of 60 mL of Omnipaque 350 intravenous contrast, helical imaging was performed in the axial plane with generation of coronal and sagittal reformatted images. This CT examination was performed using dose optimization techniques as appropriate, variously including the following: *Automated exposure control *Adjustment of mA and/or kV according to patient size (this includes techniques or standardized protocols for targeted exams where dose is matched to indication/reason for exam; i.e. extremities or head) *Use of iterative reconstruction technique FINDINGS: Lymph Nodes: -No abnormal cervical nodes identified. Carotid Sheath Structures: -Normal. Salivary Glands: -Mild fatty change to the parotid glands without focal lesions. Submandibular glands, and sublingual glands appear normal. Tongue Base/Floor of Mouth: -Normal Mucosal Space: -No abnormal enhancing mass. -Mild prominence of the tonsillar pillar soft tissues, consistent with reactive etiology. -And normal epiglottis, aryepiglottic folds, laryngeal inlet. Visceral Space: -Thyroid gland: There has been a right thyroidectomy. The left thyroid lobe is normal.. -Remainder of the visceral space is normal in appearance. -The cervical esophagus has a normal appearance. Retropharangeal Space: - Normal. Parapharyngeal Fat Planes: -Normal. Pupil Personnel Worker Spaces: -Normal. Anterior Cervical Space: -Normal. Imaged Intracranial Contents: -No mass effect, edema, or abnormal enhancement. Cortical and dural venous sinuses are patent. The skull base is normal. Globes and Orbits: -Normal. Paranasal Sinuses/Mastoids/Tympanic Spaces: -Mild mucosal thickening seen in the left dependent maxillary antrum. The remainder of the paranasal sinuses, mastoids, and tympanic spaces are normally aerated. Lung Apices and Superior Mediastinal Structures: -Imaged lung apices are clear and superior mediastinal structures are normal. Bony Structures: -No suspicious bone lesions. No fractures. -Normal TM joints. CT/CT soft tissue neck w IV con IMPRESSION: 1. No acute findings within the neck. No CT abnormality to explain patient's foreign body sensation. 2. There has been a right thyroidectomy. The left thyroid appears normal. 3. See the body the report for ancillary findings. Electronically signed by: Rajesh Caballero MD 09/10/2024 04:24 PM EDT RP
[2024-09-10 14:24] VITALS: BP 173/115; PULSE 100; RESP 19; TEMP 36.6; O2SAT 98; BMI 36.8
--- NOTE | 2024-09-10 14:26 | ED_ITS ---
HPI - General Adult General Chief complaint: General Medical Stated complaint: Lump in throat Time Seen by Provider: 09/10/24 15:08 Related Data Home Medications ?Medication ?Instructions ?Recorded ?Confirmed bupropion HCl 150 mg tablet,12 hr 150 mg PO DAILY 03/06/21 07/04/24 sustained-release topiramate 100 mg tablet (Topamax) 100 mg PO DAILY 07/30/23 07/04/24 levothyroxine 25 mcg tablet mcg PO 04/15/24 07/04/24 glipizide 5 mg tablet mg PO DAILY 06/16/24 07/04/24 phentermine 30 mg capsule mg PO DAILY 06/16/24 07/04/24 Previous Rx's ?Medication ?Instructions ?Recorded blood sugar diagnostic (FreeStyle #100 ea 03/23/24 Lite Strips) blood-glucose meter (FreeStyle #1 ea 03/23/24 Lite Meter kit) lancets 28 gauge (FreeStyle #100 ea 03/23/24 Lancets) omeprazole 20 mg capsule,delayed 20 mg PO DAILY@0630 #90 caps 04/02/24 release erythromycin 250 mg tablet 250 mg PO Q8H #90 tabs 06/16/24 Allergies Allergy/AdvReac Type Severity Reaction Status Date / Time influenza virus vaccine, Allergy Mild UNKNOWN Verified 09/10/24 14:27 specific [FLU VACCINE] doxycycline [DOXYCYCLINE] Allergy Unknown SWELLING Verified 09/10/24 14:27 vancomycin [VANCOMYCIN] Allergy Unknown ANAPHYLAXIS Verified 09/10/24 14:27 erythromycin base Allergy Itching Verified 09/10/24 14:27 metoclopramide [From Reglan] Allergy Unknown Verified 09/10/24 14:27 shellfish Allergy Mild Swelling Uncoded 09/10/24 14:27 [facility] Past Medical History Medical History New onset type 2 diabetes mellitus Cholecystectomy planned Pre-diabetes Lyme disease Osteoarthritis PCOS (polycystic ovarian syndrome) Gastroparesis Surgical History Hx of colonoscopy History of esophagogastroduodenoscopy (EGD) History of cholecystectomy H/O partial thyroidectomy Family History Family History Maternal Aunt Breast cancer Social History Social History Household Members: Friend(s) Housing: House Housing Other:: s stairs Do you presently have visiting nurse or other home services: No Unable to assess alcohol history related to: Unknown Alcohol intake: never Patient Tobacco Use Status: Never used Tobacco Second Hand Smoke Exposure: No Advance Directives: No Advance Directives Information Provided: Yes Do you have a plan to hurt others: No Plan service: No Current occupational status: employed Physical Exam ED Vital Signs: Vital Signs - 24 hr 09/10/24 14:24 09/10/24 15:16 Temperature 98 F 98.5 F Pulse Rate 100 97 Respiratory Rate 19 16 Blood Pressure 173/115 H 150/92 H Pulse Oximetry 98 99 Oxygen Delivery Method Room Air Room Air BMI result Body Mass Index 36.8 Course Course Course Narrative: This is a Rapid Medical Examination (RME) performed by Adri Alvarez PA-C in triage. Full HPI, ROS, assessment and treatment plan per primary provider in the Main ED. Hx: 34 yo female hx of anxiety/depression, hypothyroid, GERD, migraines here for eval of lump in throat which she first noticed while seated at the gym yesterday evening. was unable to tolerate water last night/ this morning. not tolerating PO at all however controlling secretions. UTD on vaccinations. PE/vitals: hypertensive - not on BP meds. otherwise well appearing, controlling secretions/speaking in complete sentences Plan: labs, viral/strep swabs - will defer imaging to primary provider Reevaluation(s) Reevaluation #1: This is a duplicate note. Please refer to Dr. Castillo's completed note regarding patient's visit on 09/10/2024. Medications Administered Discontinued Medications Generic Name Dose Route Start Last Admin Trade Name Freq PRN Reason Stop Dose Admin Iohexol 100 ml 09/10/24 16:02 09/10/24 16:02 Iohexol 350 Mg/Ml 100 Ml Infus..Btl IV 09/10/24 16:03 60 ml ONCE ONE Administration Medical Decision Making Lab Data 09/10/24 14:43 09/10/24 14:43 Labs: Lab Results 09/10/24 09/10/24 Range/Units 14:42 14:43 WBC 9.3 (4.8-10.8) X10*3/uL RBC 4.75 (4.20-5.50) X10*6/uL Hgb 13.7 (12.0-16.0) g/dl Hct 40.6 (37.0-47.0) % MCV 85.5 (80.0-98.0) fL MCH 28.8 (27.0-33.0) pg MCHC 33.7 (31.0-35.0) g/dl RDW 13.4 (11.0-16.0) % Plt Count 415 H (160-400) X10*3/uL MPV 9.5 (9.4-12.3) fL Immature Gran % (Auto) 0.2 (0.0-0.4) % Neut % (Auto) 58.5 (45-73) % Lymph % (Auto) 33.9 (20-40) % Mitchell % (Auto) 5.8 (2-11) % Eos % (Auto) 1.2 (0-4) % Baso % (Auto) 0.4 (0-2) % Lymph # (Auto) 3.2 (1.2-4.9) X10*3/uL Mitchell # (Auto) 0.5 (0.1-1.2) X10*3/uL Eos # (Auto) 0.1 (0.0-0.4) X10*3/uL Baso # (Auto) 0.0 (0.0-0.2) X10*3/uL Abs Immat Gran (auto) 0.02 (0.00-0.03) X10*3/uL Absolute Neuts (auto) 5.4 (2.0-8.3) x10*3/uL Absolute Nucleated RBC 0.000 (0.0-0.012) X10*3/uL Nucleated RBC % (auto) 0.0 (0.0-0.2) /100WBC Sodium 139 (135-145) mmol/L Potassium 4.1 D (3.3-5.1) mmol/L Chloride 108 (96-108) mmol/L Carbon Dioxide 23 (22-29) mmol/L Anion Gap 12 (12-20) BUN 11 (9-16) mg/dL Creatinine 1.08 (0.5-1.4) mg/dL Estim Creat Clear Calc 62.0 Estimated GFR 58 Random Glucose 160 H (60-115) mg/dL Calcium 10.2 D (8.4-10.2) mg/dL Magnesium 1.9 (1.6-2.6) mg/dL Total Bilirubin 0.3 (0.0-1.0) mg/dL AST 22 (5-31) U/L ALT 35 H (0-31) U/L Alkaline Phosphatase 82 (39-117) U/L Total Protein 7.8 (6.5-8.0) g/dL Albumin 4.2 (3.5-5.0) g/dL Beta HCG, Quant < 2 mIU/mL Influenza Type A (PCR) NEGATIVE (Negative) Influenza Type B (PCR) NEGATIVE (Negative) RSV RNA Qual (PCR) NEGATIVE (Negative) SARS-CoV-2 RNA (RT-PCR) POSITIVE A (Negative) S. pyogenes GrpA MU Negative (Negative) Discharge Plan Discharge Clinical Impression: COVID-19 Patient Disposition: Home, Self-Care Instructions: COVID-19 (Coronavirus Disease 2019) (ED) Prescriptions: No Action bupropion HCl 150 mg tablet sustained-release 12 hr 150 mg PO DAILY omeprazole 20 mg Capsule,Delayed Release(Dr/Ec) 20 mg PO DAILY@0630 Qty: 90 0RF (DME) FreeStyle Lite Strips Strip Qty: 100 0RF Rx Instructions: Test four times a day or as directed. (DME) blood-glucose meter [FreeStyle Lite Meter] Kit Qty: 1 0RF Rx Instructions: As Directed (DME) lancets [FreeStyle Lancets] 28 gauge misc Qty: 100 0RF Rx Instructions: Test four times a day or as directed. phentermine 30 mg capsule PO DAILY glipizide 5 mg tablet PO DAILY erythromycin 250 mg tablet 250 mg PO Q8H Qty: 90 0RF Rx Instructions: Take 250 mg 1 tablet 3 times a day with meals topiramate [Topamax] 100 mg tablet 100 mg PO DAILY levothyroxine 25 mcg tablet PO Referrals: Juan Chou MD [Primary Care Provider] - 09/12/24 Print Language: Guatemalan
[2024-09-10 14:47] LABS: MANUAL DIFF FLAG NO
[2024-09-10 14:49] LABS: Basophils Percent Auto 0.4 % (0-2); Eosinophils Absolute Auto 0.1 X10*3/uL (0.0-0.4); Eosinophils Percent Auto 1.2 % (0-4); Hematocrit 40.6 % (37.0-47.0); Hemoglobin 13.7 g/dl (12.0-16.0); Imm Gran Abs Auto 0.02 X10*3/uL (0.00-0.03); Imm Gran Pct Auto 0.2 % (0.0-0.4); Lymphocytes Absolute Auto 3.2 X10*3/uL (1.2-4.9); Lymphocytes Percent Auto 33.9 % (20-40); Mean Corpuscular HGB Conc 33.7 g/dl (31.0-35.0); Mean Corpuscular Hemoglobin 28.8 pg (27.0-33.0); Mean Corpuscular Volume 85.5 fL (80.0-98.0); Mean Platelet Volume 9.5 fL (9.4-12.3); Monocytes Absolute Auto 0.5 X10*3/uL (0.1-1.2); Monocytes Percent Auto 5.8 % (2-11); Neutrophils Absolute Auto 5.4 x10*3/uL (2.0-8.3); Neutrophils Percent Auto 58.5 % (45-73); Platelet Count 415 X10*3/uL (160-400); Red Blood Count 4.75 X10*6/uL (4.20-5.50); Red Cell Distribution Width 13.4 % (11.0-16.0); White Blood Count 9.3 X10*3/uL (4.8-10.8)
[2024-09-10 14:56] LABS: IDNOW Serial# 55D5AD1C; Strep A Nucleic Acid Negative (Negative)
[2024-09-10 15:01] LABS: Alanine Aminotransferase 35 U/L (0-31); Albumin Level 4.2 g/dL (3.5-5.0); Alkaline Phosphatase 82 U/L (39-117); Anion Gap 12 (12-20); Aspartate Amino Transferase 22 U/L (5-31); Bilirubin Total 0.3 mg/dL (0.0-1.0); Blood Urea Nitrogen 11 mg/dL (9-16); Calcium 10.2 mg/dL (8.4-10.2); Carbon Dioxide 23 mmol/L (22-29); Chloride 108 mmol/L (96-108); Estimated Glomerular Filt Rate 58; Glucose Random 160 mg/dL (60-115); Magnesium 1.9 mg/dL (1.6-2.6); Potassium 4.1 mmol/L (3.3-5.1); Sodium 139 mmol/L (135-145); Total Protein 7.8 g/dL (6.5-8.0)
[2024-09-10 15:16] VITALS: BP 150/92; PULSE 97; RESP 16; TEMP 36.9; O2SAT 99
--- NOTE | 2024-09-10 15:19 | ED_ITS ---
HPI - General Adult General Chief complaint: General Medical Stated complaint: Lump in throat Time Seen by Provider: 09/10/24 15:08 History of Present Illness HPI narrative: Patient is 34 years old was working out at the gym suddenly felt a foreign body sensation to the throat. There is no chest pain there is no shortness of breath there is no diaphoresis. Patient claims that she is able to tolerate own saliva but when she drank it seems like the water with come out. Patient denies any change in her voice there is no shortness of breath. Patient is from home. No history of the same symptoms in the past. Related Data Home Medications ?Medication ?Instructions ?Recorded ?Confirmed bupropion HCl 150 mg tablet,12 hr 150 mg PO DAILY 03/06/21 07/04/24 sustained-release topiramate 100 mg tablet (Topamax) 100 mg PO DAILY 07/30/23 07/04/24 levothyroxine 25 mcg tablet mcg PO 04/15/24 07/04/24 glipizide 5 mg tablet mg PO DAILY 06/16/24 07/04/24 phentermine 30 mg capsule mg PO DAILY 06/16/24 07/04/24 Previous Rx's ?Medication ?Instructions ?Recorded blood sugar diagnostic (FreeStyle #100 ea 03/23/24 Lite Strips) blood-glucose meter (FreeStyle #1 ea 03/23/24 Lite Meter kit) lancets 28 gauge (FreeStyle #100 ea 03/23/24 Lancets) omeprazole 20 mg capsule,delayed 20 mg PO DAILY@0630 #90 caps 04/02/24 release erythromycin 250 mg tablet 250 mg PO Q8H #90 tabs 06/16/24 Allergies Allergy/AdvReac Type Severity Reaction Status Date / Time influenza virus vaccine, Allergy Mild UNKNOWN Verified 09/10/24 14:27 specific [FLU VACCINE] doxycycline [DOXYCYCLINE] Allergy Unknown SWELLING Verified 09/10/24 14:27 vancomycin [VANCOMYCIN] Allergy Unknown ANAPHYLAXIS Verified 09/10/24 14:27 erythromycin base Allergy Itching Verified 09/10/24 14:27 metoclopramide [From Reglan] Allergy Unknown Verified 09/10/24 14:27 shellfish Allergy Mild Swelling Uncoded 09/10/24 14:27 Review of Systems 2 Review of Systems: No fever no chills no chest pain no shortness of breath no change in voice Yes all other systems are reviewed and are negative [facility] Past Medical History Attestation statement: The following information was validated with the patient. Medical History New onset type 2 diabetes mellitus Cholecystectomy planned Pre-diabetes Lyme disease Osteoarthritis PCOS (polycystic ovarian syndrome) Gastroparesis Surgical History Hx of colonoscopy History of esophagogastroduodenoscopy (EGD) History of cholecystectomy H/O partial thyroidectomy Family History Family History Maternal Aunt Breast cancer Social History Social History Household Members: Friend(s) Housing: House Housing Other:: s stairs Do you presently have visiting nurse or other home services: No Unable to assess alcohol history related to: Unknown Alcohol intake: never Patient Tobacco Use Status: Never used Tobacco Second Hand Smoke Exposure: No Advance Directives: No Advance Directives Information Provided: Yes Do you have a plan to hurt others: No Plan service: No Current occupational status: employed Physical Exam ED Vital Signs: Vital Signs - 24 hr 09/10/24 14:24 09/10/24 15:16 Temperature 98 F 98.5 F Pulse Rate 100 97 Respiratory Rate 19 16 Blood Pressure 173/115 H 150/92 H Pulse Oximetry 98 99 Oxygen Delivery Method Room Air Room Air BMI result Body Mass Index 36.8 Appearance: Alert. Oriented X3. No acute distress. Eyes: Pupils equal, round and reactive to light. ENT: Pharynx normal. Neck: Normal inspection. Neck supple. No lymph nodes noted. No crepitus CVS: Normal heart rate and rhythm. Pulses normal. Normal S1 and S2 Respiratory: No respiratory distress. Breath sounds normal. No Wheezing. No rales Abdomen: Soft and nontender. No rigidity. No distention. good BS x4 Skin: Skin warm and dry. Normal skin color. Normal skin turgor. Extremities: No lower extremity edema. Neurovascular intact to all extremities. No Lacerations. No Rash Neuro: Oriented X 3. No motor deficit. No sensory deficit. Moving all extermities. No slurred speech Medications Administered Discontinued Medications Generic Name Dose Route Start Last Admin Trade Name Salma PRN Reason Stop Dose Admin Iohexol 100 ml 09/10/24 16:02 09/10/24 16:02 Iohexol 350 Mg/Ml 100 Ml Infus..Btl IV 09/10/24 16:03 60 ml ONCE ONE Administration Medical Decision Making Medical Decision Making [facility] Narrative: Patient is 34 years old presents today feeling a foreign body sensation to her throat. Patient has minimal coughing. He tolerating fluids. No acute distress. CT scan of the soft tissue neck per Radiology was negative for any acute finding. Patient has no difficulty breathing O2 sat is normal COVID flu RSV came back positive for COVID. Patient has been vaccinated for COVID in the past she is 34 years old her risk is low. At this time a joint decision was made not to give Paxlovid. Patient to be discharged home close follow-up on an outpatient basis Differential Diagnosis Differential Diagnoses: The differential diagnosis associated with the presentation includes COVID flu RSV, strep, foreign body Admission/Observation Consideration of admission/observation: Escalation of care including admission/observation considered Lab Data [facility] Lab Attestation statement: I reviewed the patient's lab results. 09/10/24 14:43 09/10/24 14:43 Labs: Lab Results 09/10/24 09/10/24 Range/Units 14:42 14:43 WBC 9.3 (4.8-10.8) X10*3/uL RBC 4.75 (4.20-5.50) X10*6/uL Hgb 13.7 (12.0-16.0) g/dl Hct 40.6 (37.0-47.0) % MCV 85.5 (80.0-98.0) fL MCH 28.8 (27.0-33.0) pg MCHC 33.7 (31.0-35.0) g/dl RDW 13.4 (11.0-16.0) % Plt Count 415 H (160-400) X10*3/uL MPV 9.5 (9.4-12.3) fL Immature Gran % (Auto) 0.2 (0.0-0.4) % Neut % (Auto) 58.5 (45-73) % Lymph % (Auto) 33.9 (20-40) % [place] % (Auto) 5.8 (2-11) % Eos % (Auto) 1.2 (0-4) % Baso % (Auto) 0.4 (0-2) % Lymph # (Auto) 3.2 (1.2-4.9) X10*3/uL [place] # (Auto) 0.5 (0.1-1.2) X10*3/uL Eos # (Auto) 0.1 (0.0-0.4) X10*3/uL Baso # (Auto) 0.0 (0.0-0.2) X10*3/uL Abs Immat Gran (auto) 0.02 (0.00-0.03) X10*3/uL Absolute Neuts (auto) 5.4 (2.0-8.3) x10*3/uL Absolute Nucleated RBC 0.000 (0.0-0.012) X10*3/uL Nucleated RBC % (auto) 0.0 (0.0-0.2) /100WBC Sodium 139 (135-145) mmol/L Potassium 4.1 D (3.3-5.1) mmol/L Chloride 108 (96-108) mmol/L Carbon Dioxide 23 (22-29) mmol/L Anion Gap 12 (12-20) BUN 11 (9-16) mg/dL Creatinine 1.08 (0.5-1.4) mg/dL Estim Creat Clear Calc 62.0 Estimated GFR 58 Random Glucose 160 H (60-115) mg/dL Calcium 10.2 D (8.4-10.2) mg/dL Magnesium 1.9 (1.6-2.6) mg/dL Total Bilirubin 0.3 (0.0-1.0) mg/dL AST 22 (5-31) U/L ALT 35 H (0-31) U/L Alkaline Phosphatase 82 (39-117) U/L Total Protein 7.8 (6.5-8.0) g/dL Albumin 4.2 (3.5-5.0) g/dL Beta HCG, Quant < 2 mIU/mL Influenza Type A (PCR) NEGATIVE (Negative) Influenza Type B (PCR) NEGATIVE (Negative) RSV RNA Qual (PCR) NEGATIVE (Negative) SARS-CoV-2 RNA (RT-PCR) POSITIVE A (Negative) S. pyogenes GrpA MU Negative (Negative) Radiology Impression Discussion of test interpretation with radiology: I have reviewed the radiologist's reading. Discharge Plan Discharge Clinical Impression: COVID-19 Patient Disposition: Home, Self-Care Instructions: COVID-19 (Coronavirus Disease 2019) (ED) Prescriptions: No Action bupropion HCl 150 mg tablet sustained-release 12 hr 150 mg PO DAILY omeprazole 20 mg Capsule,Delayed Release(Dr/Ec) 20 mg PO DAILY@0630 Qty: 90 0RF (DME) FreeStyle Lite Strips Strip Qty: 100 0RF Rx Instructions: Test four times a day or as directed. (DME) blood-glucose meter [FreeStyle Lite Meter] Kit Qty: 1 0RF Rx Instructions: As Directed (DME) lancets [FreeStyle Lancets] 28 gauge misc Qty: 100 0RF Rx Instructions: Test four times a day or as directed. phentermine 30 mg capsule PO DAILY glipizide 5 mg tablet PO DAILY erythromycin 250 mg tablet 250 mg PO Q8H Qty: 90 0RF Rx Instructions: Take 250 mg 1 tablet 3 times a day with meals topiramate [Topamax] 100 mg tablet 100 mg PO DAILY levothyroxine 25 mcg tablet PO Referrals: Juan Chou MD [Primary Care Provider] - 09/12/24 Print Language: Yoruba
[2024-09-10 15:36] LABS: Influenza A PCR NEGATIVE (Negative); Influenza B PCR NEGATIVE (Negative); Resp Syncy Virus RNA Qual PCR NEGATIVE (Negative); SARS COV2 PCR INHOUSE POSITIVE (Negative)
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
--- OUTSIDE RECORDS SUMMARY | 2024-09-10 15:53 | XMS_ITS | Data Portability ---
Author Organization [facility], Home Service Address [address] [place] [address] Assessment Encounter Date Assessment Date Assessment LastModified [...] Lab CBC w/ auto diff 2022 023 [facility], [address] [place] [address], [place], [address], 3 14:30:48 ESR (erythrocy te sedimentat ion rate), blood 2022 023 [facility], [address] [place] [address], [place], [address], 3 14:30:49 C-reactive protein, quantitati ve, serum or plasma 2022 023 [facility], [address] [place] [address], [place], [address], 3 14:30:49 C4 (complemen t), serum or plasma 2022 023 [facility], [address] [place] [address], [address], 3 12:16:34 iga Ab, qualitativ e, serum 2022 023 [facility], [address] [place] [address], [address], 3 11:25:15 ige, total, serum 2022 023 [facility], [address] [place] [address], [address], 3 14:30:48 IgM Ab, QL, serum or plasma 2022 023 [facility], [address] [place] [address], [address], 3 14:30:49 culture, wound - stomach wound 2022 023 [facility], [address] [place] [address], [address], 3 12:49:06 vitamin D, 25-hydroxy , total, serum 2022 023 [facility], [address] [place] [address], [address], 3 14:30:49 vitamin B12, serum 2022 023 [facility], [address] [place] [address], [address], 3 14:30:49 folate, serum 2022 023 [facility], [address] [place] [address], [address], 3 14:30:48 TSH + free T4, serum 2022 023 [facility], [address] [place] [address], [address], 3 14:30:49 thyroid peroxidase (tpo) Ab, serum 2022 023 [facility], [address] [place] [address], [address], 3 14:30:48 thyroglobu mike Ab, serum 2022 023 [facility], [address] [place] [address], [address], 3 14:30:48 vitamin D, 25-hydroxy , total, serum 2021 [facility], [address] [place] [address], [address], 11:27:54 vitamin B12 + folate, serum or blood 2021 [facility], [address] [place] [address], [address], 11:27:54 iron + total iron-rakan ng capacity (TIBC), serum 2021 [facility], [address] [place] [address], [address], 11:27:54 ferritin, serum or plasma 2021 [facility], [address] [place] [address], [address], 2 11:27:54 CBC w/ auto diff 2021 [facility], [address] [place] [address], [address], 11:27:54 hemoglobin A1c, QN, blood 2021 [facility], [address] [place] [address], [address], 11:27:54 dhea-sulfa te, serum 2021 [facility], [address] [place] [address], [address], 11:29:08 testostero ne, free + total, serum 2021 [facility], [address] [place] [address], [address], 13:21:37 lh + FSH, serum 2021 [facility], [address] [place] [address], [address], 12:44:18 prolactin, serum 2021 [facility], [address] [place] [address], [address], 11:29:08 estradiol, serum 2021 [facility], [address] [place] [address], [address], 12:03:[address] referral - complex medical patient with PCOS, recent pap smear showing atypical cells, needs [facility] oncology from this reason, is unable [...] is 2023 024 diomedes Macias MD, [address] [place], [address], 4 08:15:10 endocrinol ogy referral 2023 024 [email or web address] Hussein, [address] [place], [address], 4 10:20:[address] referral 2023 024 [email or web address] Flori Macias MD, [address] [place], [address], 4 09:16:[address] referral 2022 023 [facility], [address] [place] [address] [place], [address], 3 08:18:45 rheumatolo gist referral 2021 [facility]22 [facility], [address] [place], [address], 2 08:30:25 Procedures None recorded. Surgeries None recorded. Imaging MAMMO, diagnostic , digital, unilateral - continued breast lesion and asymmetry of the right breast, needs to be monitored every 6 mos 2021 022 [facility], [address] [place], [address], 2 08:38:28 Medication Orders phentermin e 15 mg capsule 2023 025 [facility], [address] [place], [address], 5 11:27:00 glipizide 5 mg tablet 2023 024 [facility], [address] [place], [address], 4 15:56:57 Hibiclens 4 % topical liquid 2022 023 [facility], [address] [place], [address], 3 14:28:16 cephalexin 500 mg capsule 2022 023 [facility] [address] [place], [address], 4 13:25:36 topiramate 100 mg tablet 2021 [facility]037[facility], [address] [place], [address], 2 16:54:02 phentermin e 15 mg capsule 2021 [facility], [address] [place], [address], 5 11:26:57 phentermin e 15 mg capsule 2021 022 [facility], [address] [place] [address], [address], 5 11:26:57 duloxetine 20 mg capsule,de layed release 2021 [facility], [address] [place], [address], 3 14:02:51 bupropion HCl SR 150 mg tablet,12 hr sustained- release 2021 [facility], [address] [place], [address], 2 11:26:36 promethazi ne 25 mg tablet 2021 [address] [place], [address], 4 16:28:19 Patient TargetsNo targets recorded. Patient InstructionsNo instructions recorded. Reason for Referral Pot Puncher Referral for Osteoarthritis worsening arthritis pain (Multiple chronic referrals) Referring Physician: Jonna Roman [facility], Encounter Date: 02/28/2022 [place]rier Referral for Ma mmography abnormal PCOS and possible endometrosis Referring Physician: Jonna Roman [facility], Encounter Date: 01/01/2023 Flake Drier Referral for Po lycystic ovary syndrome needs PCP referral Referring Physician: Jonna Roman [facility], Encounter Date: 11/23/2023 Flake Drier Referral for At ypical squamous cells of undetermined significance on cervical Papanicolaou smear fu referral complex medical patient with PCOS, recent pap smear showing atypical cells, needs [facility] oncology from this reason, is unable [...] bilat eral No observ ation record ed. [address] [place], [address], 03/13/2022 09:45:02 03/13/20 22 03/10/2022 jono GARAY No observ ation record ed. [address] [place], [address], 03/13/2022 09:45:15 07/03/19 23 06/28/2022 XR, chest , 2 view No observ ation record ed. [facility] (Medical Records) [address] [facility], [address], 07/04/2022 14:03:04 09/13/19 23 09/12/2022 MAMMO , diagn ostic , digit al, unila teral No observ ation record ed. [address] [place], [address], 09/13/2022 14:13:26 03/08/20 23 03/08/2023 XR, knee No observ ation record ed. [address] (Medical Records) [address] [facility] [place], [address], 03/09/2023 06:40:24 04/03/20 23 04/03/2023 MAMMO , diagn ostic , digit al, unila teral No observ ation record ed. [address] [place], [address], 04/03/2023 14:28:51 06/20/19 24 06/19/2023 MRI, knee, w/ contr ast No observ [facility]ion [facility] ed. [facility] [address] [facility], [address], 06/20/2023 15:51:45 11/05/19 24 10/23/2023 US, pelvi s No observ ation record ed. [email or web address] [facility] (Medical Records) [address] [facility], [address], 11/05/2023 14:54:50 12/12/19 24 12/12/2023 CT, abdom en + pelvi s, w/o contr ast No observ ation record ed. [facility] (Medical Records) [address] [facility], [address], 12/12/2023 08:50:42 03/02/20 24 03/02/2024 XR, lumba r spine , 2 view No observ ation record ed. [email or web address] (Medical Records) [address] [facility] [place], [address], 03/03/2024 09:26:27 03/02/20 24 03/02/2024 XR, wrist + hand No observ ation record ed. [address] (Medical Records) [address] [facility] [place], [address], 03/03/2024 09:26:53 03/02/20 24 03/02/2024 XR, ankle No observ ation record ed. [address] (Medical Records) [address] [facility] [place], [address], 03/03/2024 09:27:12 03/02/20 24 03/02/2024 XR, knee No observ ation record ed. [address] (Medical Records) [address] [facility] [place], [address], 03/03/2024 09:27:30 03/08/20 24 03/08/2024 CT, abdom en + pelvi s, w/o contr ast No observ ation record ed. [facility] (Medical Records) [address] [facility] [place], [address], 03/09/2024 10:29:31 03/20/20 24 03/20/2024 CT, abdom en + pelvi s, w/o contr ast No observ ation record ed. [facility] (Medical Records) [address] [facility] [place], [address], 03/20/2024 12:14:42 05/29/19 25 05/29/2024 gastr ic empty ing study (PROC ) No observ ation record ed. [facility] (Medical Records) [address] [facility] [place], [address], 05/29/2024 19:29:28 Result Notes None recorded. Problems Name Problem SNOMED Code Status Onset Date Resolution Date Notes Provider Name and Address Organization Details Recorded Time Type 2 diabetes mellitus 24521806 Active 2020 CARON HALE [address] [place] [address], [address], [facility] 14:16:53 Polycysti c ovary syndrome 629787970 Active 2020 CARON HALE [address] [place] [address], [address], [facility] 14:22:59 Gastropar esis due to diabetes mellitus 924318749 Active 2020 CARON HALE [address] [place] [address], [address], [facility] 14:23:10 Essential hypertens ion 24546802 Active 2020 CARON HALE [address] [place] [address], [address], [facility] 14:23:37 Hyperlipi demia 26256349 Active 2020 CARON HALE [address] [place] [address], [address], [facility] 14:23:49 Lyme disease 12511070 Active 2020 CARON HALE [address] [place] [address], [address], [facility] 14:38:28 Osteoarth ritis 659433111 Active 2020 CARON HALE [address] [place] [address], [address], [facility] 14:38:41 Thyroidec usman Active 2021 CARON HALE [address] [place] [address], [address], [facility] 2 16:25:21 Insomnia 218484911 Active 2021 CARON HALE [address] [place], [address], [facility] 2 12:29:19 Obesity 668862456 Active 2021 CARON HALE [address] [place], [address], [facility] 2 12:30:19 Uvulitis 591922637 Active 2021 CARON HALE [address] [place] [address], [address], [facility] 2 14:30:20 Cough 29717853 Active 2021 CARON HALE [address] [place] [address], [address], [facility] 2 14:31:29 Mammograp hy abnormal 646291992 Active 2021 CARON HALE [address] [place] [address], [address], [facility] 2 16:26:17 Lesion of breast 518959491 Active 2021 CARON HALE [address] [place] [address], [address], [facility] 2 14:01:55 Loss of hair 431045253 Active 2021 CARON HLAE [address] [place] [address], [address], [facility] 2 11:21:55 Anxiety 32214417 Active 2021 CARON HALE [address] [place] [address], [address], [facility] 2 11:24:40 Nausea and vomiting 32364837 Active 2021 CARON HALE [address] [place] [address], [address], [facility] 2 11:38:11 Overweigh t 048008993 Active 2021 CARON HALE [address] [place] [address], [address], [facility] 2 13:03:41 Depressiv e disorder 41751602 Active 2021 CARON HALE [address] [place] [address], [address], [facility] 2 16:43:10 Chronic cough 98043790 Active 2022 CARON HALE [address] [place] [address], [address], [facility] 3 14:37:58 Loss of scalp hair 413617352 Active 2022 CARON HALE [address] [place] [address], [address], [facility] 3 15:43:55 Gastropar esis due to type 2 diabetes mellitus 998198971 Active 2022 CARON HALE [address] [place] [address], [address], [facility] 3 14:20:28 Vesicular eruption 82905742 Active 2022 CARON HALE [address] [place] [address], [address], [facility] 3 14:21:08 Staphyloc occal infection of skin 120141213 Active 2022 CARON HALE [address] [place] [address], [address], [facility] 3 13:15:06 Pain of left knee joint 602641760360 107 Active 2023 CARON HALE [address] [place] [address], [address], [facility] 4 09:32:19 Degenerat ion of lumbar intervert ebral disc 87076763 Active 2023 CARON HALE [address] [place] [address], [address], [facility] 4 15:28:33 Pain of left wrist 350091269785 102 Active 2023 CARON HALE [address] [place] [address], [address], [facility] 4 09:06:05 Pain of left ankle joint 741981593352 41766 Active 2023 CARON HALE [address] [place] [address], [address], [facility] 4 09:06:20 Metabolic acidosis 70614161 Active 2023 CARON HALE [address] [place] [address], [address], [facility] 4 09:07:02 Atypical squamous cells of undetermi shweta significa nce on cervical Papanicol aou smear 287531464 Active 2023 CARON HALE [address] [place] [address], [address], [facility] 4 15:46:53 Notes:Some problems listed i n Document: #[id number] could not be added to this patient's chart. Please review this document and add these problems to the patient's chart manually as needed. Problem Notes None recorded. Procedures Surgical History None recorded. Imaging Results Imaging Date Name Status LastModified by [facility] Details LastModified Time 03/10/2022 MAMMO, screening, digital, bilateral completed [address] [place], [address], 03/13/2022 09:45:02 03/10/2022 US, breast completed [address] [place], [address], 03/13/2022 09:45:15 06/28/2022 XR, chest, 2 view completed [facility] (Medical Records) [address] [facility] [place], [address], 07/04/2022 14:03:04 09/12/2022 MAMMO, diagnostic, digital, unilateral completed [address] [place], [address], 09/13/2022 14:13:26 03/08/2023 XR, knee completed [address] (Medical Records) [address] [facility], [address], 03/09/2023 06:40:24 04/03/2023 MAMMO, diagnostic, digital, unilateral completed [address] [place], [address], 04/03/2023 14:28:51 06/19/2023 MRI, knee, w/ contrast completed [facility] (Medical Records) [address] [place], [address], 06/20/2023 15:51:45 10/23/2023 US, pelvis completed [address] (Medical Records) [address] [place], [address], 11/05/2023 14:54:50 12/12/2023 CT, abdomen + pelvis, w/o contrast completed [facility] (Medical Records) [address] [facility], [address], 12/12/2023 08:50:42 03/02/2024 XR, lumbar spine, [address] view [address] (Medical Records) [address] [place], [address], 03/03/2024 09:26:27 03/02/2024 XR, wrist + hand completed [address] (Medical Records) [address] [place], [address], 03/03/2024 09:26:53 03/02/2024 XR, ankle completed [email or web address] [facility] (Medical Records) [address] [place], [address], 03/03/2024 09:27:12 03/02/2024 XR, knee completed [email or web address] [facility] (Medical Records) [address] [place], [address], 03/03/2024 09:27:30 03/08/2024 CT, abdomen + pelvis, w/o contrast completed [facility] (Medical Records) [address] [place], [address], 03/09/2024 10:29:31 03/20/2024 CT, abdomen + pelvis, w/o contrast completed [facility] (Medical Records) [address] [place], [address], 03/20/2024 12:14:42 05/29/2024 gastric emptying study (PROC) completed [facility] (Medical Records) [address] [place], [address], 05/29/2024 19:29:28 Procedure Notes None recorded. Medical Equipment None Reported. Allergies Allergen ID Allergen Name Allergen Category Reaction Reaction Severity Criticality Documentation Date Start Date Code Code System Note Provider Name and Address Organization Details Recorded Time 4899 shellfish derived food,medi cation other mild Not available 02/11/2021 42861 UNK mild facia l swell ing CARON HALE [address] [place], [address], [facility] 1 14:16:06 7170 doxycycli ne Not available Not available Not available Not available 01/01/2023 3640 RxNorm CARON HALE [address] [place], [address], [facility] 3 14:27:08 7171 vancomyci n medicatio n Not available Not available Not available 01/01/2023 06130 RxNorm CARON HALE [address] [place], [address], [facility] 3 14:27:33 7172 influenza A (H1N1) medicatio n Not available Not available Not available 01/01/2023 35912 UNK CARON HALE [address] [place], [address], [facility] 3 14:27:46 Medications Name [...] Address Organization Details Last Updated DateTime 01/01/2023 45058.22 g 102 /min 100 % 100 % CARON HALE [address] [place], [address], [facility] 14:02:25 Date Recorded Body height Body mass index (BMI) Body weight Heart rate Oxygen saturation Oxygen saturation in Arterial blood by Pulse oximetry Systolic blood pressure Diastolic blood pressure Provider Name and Address Organization Details Last Updated DateTime 4 144.78 cm 36.8 kg/m2 54329.7 g 105 /min 98 % 98 % 138 mm[Hg] 80 mm[Hg] Sunday Hansa [facility] 4 16:29:45 Social History Question Answer Notes LastModified by Organizat ion Details LastModified Time Tobacco Smoking Status Never Smoker CARON HALE [address] [place], [address], [facility] 01/01/2023 14:05:04 What Was [...] SNOMED-CT Code Diagnosis ICD10 Code Diagnosis Note [id number] DO Patrick [facility] [address] [facility],[place] [address] 02/11/2021 13:46:00 02/11/2021 15:39:08 Essential hypertension 56775273 I10 stable Gastropare sis due to diabetes mellitus 437655897 E13.43 would like to find new GI Hyperlipidemia 06676163 E78.2 stable last check prior to transfer Polycystic ovary syndrome 304689294 E28.2 will submit referral to gynecology Type 2 gladis betes mellitus 81834118 E11.9 will fu with endocrine referral for evaluation Mammograph ic mass of right breast 2402816447 7856958 R92.8 needs fu in April Osteoarthritis 229890177 M15.3 due to Lyme diseasemos tly knees and hips but it does move aroundlast rheumatolo gy visit was 10 years ago Genetic sc reening for disorder 439224779 Z13.71 will fu with genetic screening Fatigue 49536773 R53.83 will fu with testing rheum panel and recheck TSH with T3 [id number] DO Blaise Kramerhan [facility] [address] [facility],[place] [address] 03/21/2021 08:11:44 03/21/2021 16:21:41 Gastroparesis due to type 2 diabetes mellitus 048121279 E11.43 working on diet and using meds for ER Nausea and vomiting 1693 1999 R11.2 has zofran script from ER Diarrhea 59544414 R19.7 will continue on the dissolvabl e N/V mednot interested in a suppositor y Tachycardia 2526692 R00. 0 will fu with event monitor [id number] Juan Chou [facility] [address] [facility],[place] [address] 05/10/2021 09:15:21 05/10/2021 11:28:29 Tear of medial meniscus of knee 777989870 S83.242A will fu with MRI to confirm probable [place] [id number] Juan Chou DO [facility] [address] [place] [address],[place] [address] 06/17/2021 08:20:00 06/20/2021 13:50:14 Panic disorder 619409158 F41.0 sent referralwi ll fu if the patient is not contacted Gastropare sis due to type 2 diabetes mellitus 611559146 E11.43 resolved from recent hospital trip Type 2 gladis betes mellitus 76116413 E11.9 waiting on endo appt Essential hypertension 71872464 I10 stable Gastropare sis due to diabetes mellitus 780155214 E13.43 waiting for GI appt Hyperlipidemia 44745532 E78.2 stable last check prior to transfer Insomnia 091463746 G47.0 1 will start at 10 mg, the patient has gastropare sis, does not digest and absorb things wellwill start at a higher dose [id number] Juan Chou DO [facility] [address] [place] [address],[place] [address] 07/22/2021 16:18:01 07/25/2021 16:33:10 Type 2 diabetes mellitus 37145376 E11.9 stable History of thyroidectomy 888129864 Z90.09 fu with endocrine Obesity 774904028 E66.8 start topimaxfu in two weeks [id number] Juan Chou [facility] [address] [facility],[place] [address] 10/11/2021 13:34:05 10/11/2021 14:40:37 Uvulitis 854519137 K12.2 will start on z leonard for prevention of infection and for anti-infla mmatory properties poor reaction with steriods, will try meloxicam in combo Cough 04777159 R05.1 will start on cough suppressan t as the cough is the main source of her continued discomfort [id number] Juan Chou [facility] [address] [facility], [place] [address] 02/28/2022 10:57:02 02/28/2022 13:19:24 Loss of hair 818093792 L63.0 talking to endocrinol ogy Anxiety 57127173 F41.1 will restart on bupropionw ill help with weight loss Polycystic ovary syndrome 811072940 E28.2 might be having a flare up Osteoarthritis 691862808 M15.3 due to Lyme diseasemos tly knees and hips but it does move aroundlast rheumatolo gy visit was 10 years ago Lesion of breast 8030717 04 N60.01 will fu with MM screening, every 6 mos Nausea and vomiting 1693 2000 R11.2 will trial alternativ e nausea med prior to bed 13263 Juan Chou DO [facility] [address] [facility],[place] [address] 05/01/2022 09:36:04 05/01/2022 16:59:18 Type 2 diabetes mellitus 61231765 E11.9 stabledisc ussed other meds to use for both diabetes and weight loss Overweight 730183319 E66 .3 discussed increasing the topimax and waiting to see if ozempic [facility] Depressive disorder 6898 9314 F33.9 start duloxetine [id number] Juan Chou DO [facility] [address] [facility] [place] [address] 01/01/2023 13:58:24 01/01/2023 15:32:37 Anxiety 23476001 F41.1 will restart on bupropionw ill help with weight loss Depressive disorder 3541 9007 F33.9 start duloxetine Type 2 gladis betes mellitus 50438730 E11.9 stabledisc ussed other meds to use for both diabetes and weight loss Gastropare sis due to type 2 diabetes mellitus 591655437 E11.43 resolved from recent hospital trip Vesicular eruption 47379 008 R23.8 will set up with blood work and wound culturesta rt on keflex and hibiclens will set up with lab work History of thyroidectomy 423979290 Z90.09 fu with endocrine Lesion of breast 7627989 04 N60.01 will fu with MM screening, every 6 mos Mammography abnormal [id number] R92.8 will set up with new DATA COLLECTION INTERVIEWER closer to patient [id number] Juan Chou DO [facility] Internal Medicine [address] [facility], [place] [facility] [place] [address] 11/23/2023 16:10:36 11/27/2023 09:16:22 Depression screening [id number] Z13.31 stable Polycystic ovary syndrome [id number] E28.2 need DATA COLLECTION INTERVIEWER referral Gastropare sis due to type 2 diabetes mellitus [id number] E11.43 resolved from recent hospital trip Type 2 gladis betes mellitus 56981596 E11.9 stable Overweight [id number] E66 .3 discussed increasing the topimax and waiting to see if ozempic or mounjaro come back into [facility] one of those [id number] Juan Chou DO [facility] [address] [facility],[place] [facility] [place] [address] 04/16/2024 09:44:20 04/16/2024 16:00:21 Overweight 072532619 E66.3 restart Type 2 gladis betes mellitus 12885637 E11.9 stable Gastropare sis due to type 2 diabetes mellitus 986156638 E11.43 resolved from recent hospital tripneeds alt med for diabetes control Atypical s quamous cells of undetermined significance on cervical Papanicolaou smear [id number] R87.610 will resubmit referral againhave hr follow up with their office again Health Concerns Section Related Observation LastModified by Organization Detai ls LastModified Time None Recorded Concern Status LastModified by Organization Details LastModified Time None Recorded Advance Directives Directive None Recorded Payers Encounter Date Sequence Insurance Name Policy Number Policy Lee Covered Member ID Lee Member ID Guarantor Name 02/28/2022 1 [facility] [id number] Nila Werbiskis [id number] Nila Werbiskis 05/01/2022 1 [facility] [id number] Nila Werbiskis [id number] Nila Werbiskis 01/01/2023 1 [facility] [id number] Nila Werbiskis [id number] Nila Werbiskis 11/23/2023 1 [facility] [id number] Nila Werbiskis [id number] Nila Werbiskis 04/16/2024 1 [facility] [id number] Nila Werbiskis [id number] Nila Werbiskis Notes Date Note Type Note Provider Name and Address Organization Details Recorded Time 2 text/html the patient reports that she has been having the weight gain and hair lossshe is also throwing up in her sleep again, sleeps on her side the patient reports that she is talking to endo about her thyroidwill be testing CARON HALE [address] [place], [address], [facility] 02/28/2022 11:40:21 2 text/html f/u [...] for the MRI results CARON HALE [address] [place], [address], [facility] 05/01/2022 16:58:49 3 text/html c/o rash rash, vesicles, red base, clear dischargewith gastroparesis hasn't been able to keep her meds down and could be having issues with the generic levomay be more suited toward synthroid will set up with blood work will f/u with patient after work up needs new DATA COLLECTION INTERVIEWER CARON HALE [address] [place], [address], [facility] 01/01/2023 14:38:36 4 text/html medication f/u avoid zepbound due to h/x of gastroparesishealth [place]'t cover wegovy and is back-ordereddiscussed maybe a short trial of rybelsus will have her try a free sample, monitor how she tolerates it wellwill also work well for her diabetes to control her sugar has f/u with PCOS with [facility] on/lean [employer] senior specialist who will be doing her procedures now the patient and I discussed other options for the new nerve damage like acupuncture and PTalso discussed possible use of a TENS unit to see if she likes it and will talk about her CARON HALE [address] [facility], [place], [address], [facility] 11/23/2023 17:09:21 4 text/html hospital [...] the patient will need additional referral for [facility] gynoncolgystated they need verbal order which they are received currently liquid diet, protein shakeslimited solids on multivitamin currently needs to discuss f/u with endoneeds additional referral for t2dm CARON HALE [address] [facility], [place], [address], [facility] 04/16/2024 15:59:11 OBGyn Episode No OBEpisode recorded.
[2024-09-10 15:55] LABS: HCG Quantitative < 2 mIU/mL
[2024-09-10] MEDS: iohexoL 350 MG/ML 100 ML INFUS..BTL IV (16:02)
[2024-09-10 17:15] VITALS: BP 152/99; PULSE 95; RESP 16; TEMP 36.8; O2SAT 93
[2024-09-10 17:19] VITALS: BP 152/99; PULSE 95; RESP 16; TEMP 36.8; O2SAT 93
== END 2024-09-10 17:21 | disposition home or self-care (01) ==
PROVIDERS: Physician Assistant Medical; Emergency Provider Emergency Medicine Emergency Medical Services; PCP Internal Medicine
DX: U07.1 COVID-19 (principal); R09.A2 Foreign body sensation, throat; E11.9 Type 2 diabetes mellitus without complications; E28.2 Polycystic ovarian syndrome; Z87.440 Personal history of urinary (tract) infections; Z79.899 Other long term (current) drug therapy
CPT/HCPCS: 0241U; 36415; 70491; 80053; 83735; 84702; 85025; 87651; 99284; Q9967

== ENCOUNTER → 2024-09-10 15:18 | Outpatient (BNV) | payer OTHER, SELFPAY | PROVIDERS: Emergency Provider Emergency Medicine Emergency Medical Services; PCP Internal Medicine; Visit Provider Radiology Diagnostic Radiology | DX: R09.A2 Foreign body sensation, throat (principal) | CPT/HCPCS: 70491 ==

== ENCOUNTER 2024-09-15 08:46 | Outpatient (AMB) | payer OTHER, SELFPAY ==
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
--- OUTSIDE RECORDS SUMMARY | 2024-09-15 09:09 | XMS_ITS | Patient Health Record ---
Author Organization [facility] Address [address] [place] [address] Care Team Providers Care Ppa Teacher Name Role Phone Janny Peoples Primary Care Provider Unavail able Faizan Sierra Jr Unavailable Allergies Allergen (clinical drug ingredient) Drug/Non Drug Allergy documented on EMR Reaction Allergy Type Onset Date Status doxycycline Doxycycline Unknown Drug Allergy Act marvin vancomycin Vancomycin HCl Unknown Drug Allergy A ctive Vaccine product containing Influenza virus antigen (medicinal product) Flu Vaccine (uncoded) Unknown Allergy Active Reason For Referral No Information Medications Medication SIG (Take, Route, Fr equency, Duration) Notes Start Date End Date Status Tylenol PRN Active Wellbutrin Active metFORMIN HCl 750 mg Active Zofran 4 MG Orally Active Omeprazole 20 MG 1 tablet 30 minutes before morning meal Orally Once a day for 30 day(s) 05/19/2020 Active Immunizations Vaccine Route Administration Date Status Comme nts Influenza Unknown 05/19/2020 Refused Social History Tobacco Use: Social History Observation Description Date Details (start date - stop date) Never Smoker NA - NA Tobacco Use/Smoking Question Answer Notes Patient is [...] Never (0 point) Points 1 Interpretation Negative Problems Problem Type SNOMED Code ICD Code Onset Dates Problem Status W/U Status Risk Notes Problem [id number] Gastroparesis (K31.84) Active confirmed Plan Of Treatment No Information Insurance Providers Payer Name Payer Address Payer Phone Subscriber Number Group Number Insured Name Patient Relationship to Insured Coverage Start Date Coverage End Date [employer] [address] [place] [phone] [id number] RIGO DIAZ Self - patient is the insured Medical (General) History Medical History History ICD Code PCOs - polycystic ovarian syndrome gastroparesis thyroid nodule - partial thyroid removed lyme disease osteoarthritis Surgical History Surgery Date(Month/Year) thyroidectomy - nodule and partial thyro id duct removal - left breast cholecystectomy
--- OUTSIDE RECORDS SUMMARY | 2024-09-15 09:10 | XMS_ITS | Continuity of Care Document ---
Author Organization [facility] Address [address] [place] [address], [address] [place] [id number] Care Team Providers Care Field Marketing Team Leader Name Role Phone Juan Chou DO Primary Care Physician [phone] Encounter [facility] Date(s): 09/05/24 - 09/12/24 [facility] [employer] [address], [address] [place] [id number] Attending Physician: Kymberly VINCENT, Jocelyn Young Referring Physician: Flori Macias MD Encounter Type: Office Visit Allergies, Adverse Reactions, Alerts Substance Criticality Severity [...] Refills, Soft Stop, 11/02/21 9:27:00 AM EDT, [facility]/pharmacy #[id number], Partial fill upon patient request if the prescription is for a schedule II opioid drug.,145, cm, 11/02/21 9:01:00 EDT, Height, 91, kg, 05/28/21 0:57:00 EST, Dry Weight Start Date: 11/02/21 Status: Ordered Quantity: 1.0 Unit: tablet Repeat number: 1 glipiZIDE 5 mg oral tablet Refills 0, Maintenance, 09/05/24 11:17:00 AM EDT, Partial fill upon patient request if the prescription is for a schedule II opioid drug. Start Date: 09/05/24 Status: Ordered Repeat number: 1 levothyroxine 0.025 mg oral tablet 0.5 tablet = 12.5 mcg, By Mouth, Daily, please take first thing in the am on empty stomach, 60 minutes before food and other medications, # 45 tablet, 3 Refills, Maintenance, 01/24/22 1:00:00 PM EDT, Tablet, [id number], Partial fill upon patient request if the [...] Refills, Maintenance, 12/12/23 2:04:00 PM EDT, Tablet, [facility]/pharmacy #[id number], Partial fill upon patient request if [...] of a nodule in 2007. Biopsy inconclusive Vital Signs Most recent to oldest [Reference Range]: 1 Height 147.6 cm (09/05/24 10:44 AM) Weight 79.4 kg (09/05/24 10:44 AM) Body Mass Index [18.5-24.99 kg/m2] 36.45 kg/m2 *>HHI* (09/05/24 10:44 AM) Blood Pressure [90-138/55-84 mm Hg] 147/ 97mm Hg *H* (09/05/24 10:44 AM) Blood pressure sites Arm, right (09/05/24 10:44 AM) Dry Weight 79.4 kg (09/05/24 10:44 AM) Social History Social History Type Response Smoking Status Never (less than 100 in lifetime) entered on: 06/30/21 Sex Sex Representation Female (finding) Patient Care team information Care Team Personnel Name: Juan Chou DO Position: Reference Physician Member Role: PCP Address: [address] [place] [address] Internal [address] Telecom: Care Team Related Persons Name: SHAYNE ROBERSON Name: ERASMO DIAZ Name: JOCELYN DIAZ Insurance Providers Guarantor name: RIGO DIAZ Health Plan Information #: 1 Payer: [facility] [employer] NON [employer] HMO Member Number: [id number] Policy Number: NA Group Number: [id number] Health Plan Information #: 2 Payer: [facility] [employer] NON [employer] HMO Member Number: [id number] Policy Number: NA Group Number: NA
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
--- OUTSIDE RECORDS SUMMARY | 2024-09-15 09:10 | XMS_ITS | Data Portability ---
Author Organization [facility], Home Service Address [address] [place] [address] Assessment Encounter Date Assessment Date Assessment LastModified [...] Lab CBC w/ auto diff 2022 023 [facility], [address] [place] [address], [place], [address], 3 14:30:48 ESR (erythrocy te sedimentat ion rate), blood 2022 023 [facility], [address] [place] [address], [place], [address], 3 14:30:49 C-reactive protein, quantitati ve, serum or plasma 2022 023 [facility], [address] [place] [address], [place], [address], 3 14:30:49 C4 (complemen t), serum or plasma 2022 023 [facility], [address] [place] [address], [address], 3 12:16:34 iga Ab, qualitativ e, serum 2022 023 [facility], [address] [place] [address], [address], 3 11:25:15 ige, total, serum 2022 023 [facility], [address] [place] [address], [address], 3 14:30:48 IgM Ab, QL, serum or plasma 2022 023 [facility], [address] [place] [address], [address], 3 14:30:49 culture, wound - stomach wound 2022 023 [facility], [address] [place] [address], [address], 3 12:49:06 vitamin D, 25-hydroxy , total, serum 2022 023 [facility], [address] [place] [address], [address], 3 14:30:49 vitamin B12, serum 2022 023 [facility], [address] [place] [address], [address], 3 14:30:49 folate, serum 2022 023 [facility], [address] [place] [address], [address], 3 14:30:48 TSH + free T4, serum 2022 023 [facility], [address] [place] [address], [address], 3 14:30:49 thyroid peroxidase (tpo) Ab, serum 2022 023 [facility], [address] [place] [address], [address], 3 14:30:48 thyroglobu mike Ab, serum 2022 023 [facility], [address] [place] [address], [address], 3 14:30:48 vitamin D, 25-hydroxy , total, serum 2021 [facility], [address] [place] [address], [address], 11:27:54 vitamin B12 + folate, serum or blood 2021 [facility], [address] [place] [address], [address], 11:27:54 iron + total iron-rakan ng capacity (TIBC), serum 2021 [facility], [address] [place] [address], [address], 11:27:54 ferritin, serum or plasma 2021 [facility], [address] [place] [address], [address], 2 11:27:54 CBC w/ auto diff 2021 [facility], [address] [place] [address], [address], 11:27:54 hemoglobin A1c, QN, blood 2021 [facility], [address] [place] [address], [address], 11:27:54 dhea-sulfa te, serum 2021 [facility], [address] [place] [address], [address], 11:29:08 testostero ne, free + total, serum 2021 [facility], [address] [place] [address], [address], 13:21:37 lh + FSH, serum 2021 [facility], [address] [place] [address], [address], 12:44:18 prolactin, serum 2021 [facility], [address] [place] [address], [address], 11:29:08 estradiol, serum 2021 [facility], [address] [place] [address], [address], 12:03:[address] referral - complex medical patient with PCOS, recent pap smear showing atypical cells, needs [facility] oncology from this reason, is unable to [...] is 2023 024 diomedes Macias MD, [address] [place], [address], 4 08:15:10 endocrinol ogy referral [address] [facility], [address] [place], [address], 4 10:20:[address] referral 2023 024 [email or web address] Flori Macias MD, [address] [place], [address], 4 09:16:[address] referral 2022 023 [facility], [address] [place] [address] [place], [address], 3 08:18:45 rheumatolo gist referral 2021 022 [facility], [address] [place], [address], 2 08:30:25 Procedures None recorded. Surgeries None recorded. Imaging MAMMO, diagnostic , digital, unilateral - continued breast lesion and asymmetry of the right breast, needs to be monitored every 6 mos 2021 022 [facility] Central Sched[facility], [address] [place], [address], 2 08:38:28 Medication Orders phentermin e 15 mg capsule 2023 025 [facility], [address] [place], [address], 5 11:27:00 glipizide 5 mg tablet 2023 024 [facility], [address] [place], [address], 4 15:56:57 Hibiclens 4 % topical liquid 2022 023 [facility], [address] [place], [address], 3 14:28:16 cephalexin 500 mg capsule 2022 023 [facility] [address] [place], [address], 4 13:25:36 topiramate 100 mg tablet 2021 [facility], [address] [place], [address], 2 16:54:02 phentermin e 15 mg capsule 2021 [facility], [address] [place], [address], 5 11:26:57 phentermin e 15 mg capsule 2021 022 [facility], [address] [place] [address], [address], 5 11:26:57 duloxetine 20 mg capsule,de layed release 2021 [facility], [address] [place], [address], 3 14:02:51 bupropion HCl SR 150 mg tablet,12 hr sustained- release 2021 [facility], [address] [place], [address], 2 11:26:36 promethazi ne 25 mg tablet 2021 [address] [place], [address], 4 16:28:19 Patient TargetsNo targets recorded. Patient InstructionsNo instructions recorded. Reason for Referral Clinical Data Manager Referral for Osteoarthritis worsening arthritis pain (Multiple chronic referrals) Referring Physician: [facility], Encounter Date: 02/28/2022 Deli Manager Referral for Ma mmography abnormal PCOS and possible endometrosis Referring Physician: [facility], Encounter Date: 01/01/2023 Deli Manager Referral for Po lycystic ovary syndrome needs PCP referral Referring Physician: [facility], Encounter Date: 11/23/2023 Deli Manager Referral for At ypical squamous cells of undetermined significance on cervical Papanicolaou smear fu referral complex medical patient with PCOS, recent pap smear showing atypical cells, needs [facility] oncology from this reason, is unable to do a biopsy without anesthesia due to severe pain, needs to be put in under SHE CANNOT DO A CONSCIOUS BIOPSY DUE TO THE SEVERE PAIN AND BLEEDING SHE GETSshe was told she would be taken on as patientfour referrals have been sent and confirmed with your officealso has a question of endometrosis Referring Physician: [facility], Internal Medicine, Encounter Date: 04/16/2024 Endocrinology Referral for T ype 2 diabetes mellitus needed specific referral for diabetes Referring Physician: [facility], Encounter Date: 04/16/2024 Results Created Date Observation Date Name Description Value Unit Range Abnormal Flag Note LastModifiedBy Organization Detail LastModifiedTime 03/13/2003/10/2022 MAMMO , scree abelino, digit al, bilat eral No observ ation record ed. [address] [place], [address], 03/13/2022 09:45:02 03/13/20 22 03/10/2022 jono GARAY No observ ation record ed. [address] [place], [address], 03/13/2022 09:45:15 07/03/19 23 06/28/2022 XR, chest , 2 view No observ ation record ed. [facility] (Medical Records) [address] [place], [address], 07/04/2022 14:03:04 09/13/19 23 09/12/2022 MAMMO , diagn ostic , digit al, unila teral No observ ation record ed. [address] [place], [address], 09/13/2022 14:13:26 03/08/20 23 03/08/2023 XR, knee No observ ation record ed. [address] (Medical Records) [address] [place], [address], 03/09/2023 06:40:24 04/03/20 23 04/03/2023 MAMMO , diagn ostic , digit al, unila teral No observ ation record ed. [address] [place], [address], 04/03/2023 14:28:51 06/20/19 24 06/19/2023 MRI, knee, w/ contr ast No observ ation record ed. [facility] [address] [place], [address], 06/20/2023 15:51:45 11/05/19 24 10/23/2023 US, pelvi s No observ ation record ed. [email or web address] [facility] (Medical Records) [address] [place], [address], 11/05/2023 14:54:50 12/12/19 24 12/12/2023 CT, abdom en + pelvi s, w/o contr ast No observ ation record ed. [facility] (Medical Records) [address] [place], [address], 12/12/2023 08:50:42 03/02/20 24 03/02/2024 XR, lumba r spine , 2 view No observ ation record ed. [email or web address] (Medical Records) [address] [place], [address], 03/03/2024 09:26:27 03/02/20 24 03/02/2024 XR, wrist + hand No observ ation record ed. [address] (Medical Records) [address] [place], [address], 03/03/2024 09:26:53 03/02/20 24 03/02/2024 XR, ankle No observ ation record ed. [address] (Medical Records) [address] [place], [address], 03/03/2024 09:27:12 03/02/20 24 03/02/2024 XR, knee No observ ation record ed. [address] (Medical Records) [address] [place], [address], 03/03/2024 09:27:30 03/08/20 24 03/08/2024 CT, abdom en + pelvi s, w/o contr ast No observ ation record ed. [facility] (Medical Records) [address] [place], [address], 03/09/2024 10:29:31 03/20/20 24 03/20/2024 CT, abdom en + pelvi s, w/o contr ast No observ ation record ed. [facility] (Medical Records) [address] [place], [address], 03/20/2024 12:14:42 05/29/19 25 05/29/2024 gastr ic empty ing study (PROC ) No observ ation record ed. [facility] (Medical Records) [address] [place], [address], 05/29/2024 19:29:28 09/11/19 25 09/10/2024 CT, neck, soft tissu e, w/o contr ast No observ ation record ed. [facility] (Medical Records) [address] [place], [address], 09/11/2024 12:01:03 Result Notes None recorded. Problems Name Problem SNOMED Code Status Onset Date Resolution Date Notes Provider Name and Address Organization Details Recorded Time Type 2 diabetes mellitus 31385142 Active 2020 CARON HALE [address] [place] [address], [address], [facility] 14:16:53 Polycysti c ovary syndrome 537135442 Active 2020 CARON HALE [address] [place] [address], [address], [facility] 14:22:59 Gastropar esis due to diabetes mellitus 864742985 Active 2020 CARON HALE [address] [place] [address], [address], [facility] 14:23:10 Essential hypertens ion 90104984 Active 2020 CARON HALE [address] [place] [address], [address], [facility] 14:23:37 Hyperlipi demia 74433899 Active 2020 CARON HALE [address] [place] [address], [address], [facility] 14:23:49 Lyme disease 23718922 Active 2020 CARON HALE [address] [place] [address], [address], [facility] 14:38:28 Osteoarth ritis 211725350 Active 2020 CARON HALE [address] [place] [address], [address], [facility] 1 14:38:41 Thyroidec usman Active 2021 CARON HALE [address] [place], [address], [facility] 2 16:25:21 Insomnia 444015009 Active 2021 CARON HALE [address] [place], [address], [facility] 2 12:29:19 Obesity 146893570 Active 2021 CARON HALE [address] [place] [address], [address], [facility] 2 12:30:19 Uvulitis 015098199 Active 2021 CARON HALE [address] [place] [address], [address], [facility] 2 14:30:20 Cough 00707825 Active 2021 CARON HALE [address] [place] [address], [address], [facility] 2 14:31:29 Mammograp hy abnormal 363680416 Active 2021 CARON HALE [address] [place] [address], [address], [facility] 2 16:26:17 Lesion of breast 810089173 Active 2021 CARON HALE [address] [place] [address], [address], [facility] 2 14:01:55 Loss of hair 071298465 Active 2021 CARON HALE [address] [place] [address], [address], [facility] 2 11:21:55 Anxiety 52346601 Active 2021 CARON HALE [address] [place] [address], [address], [facility] 2 11:24:40 Nausea and vomiting 47165449 Active 2021 CARON HALE [address] [place] [address], [address], [facility] 2 11:38:11 Overweigh t 711967309 Active 2021 CARON HALE [address] [place] [address], [address], [facility] 2 13:03:41 Depressiv e disorder 75997983 Active 2021 CARON HALE [address] [place] [address], [address], [facility] 2 16:43:10 Chronic cough 20701181 Active 2022 CARON HALE [address] [place] [address], [address], [facility] 3 14:37:58 Loss of scalp hair 845402253 Active 2022 CARON HALE [address] [place] [address], [address], [facility] 3 15:43:55 Gastropar esis due to type 2 diabetes mellitus 389244551 Active 2022 CARON HALE [address] [place] [address], [address], [facility] 3 14:20:28 Vesicular eruption 88566768 Active 2022 CARON HALE [address] [place] [address], [address], [facility] 3 14:21:08 Staphyloc occal infection of skin 416979873 Active 2022 CARON HALE [address] [place] [address], [address], [facility] 3 13:15:06 Pain of left knee joint 600815356868 107 Active 2023 CARON HALE [address] [place] [address], [address], [facility] 4 09:32:19 Degenerat ion of lumbar intervert ebral disc 71812419 Active 2023 CARON HALE [address] [place], [address], [facility] 4 15:28:33 Pain of left wrist 425394908831 102 Active 2023 CARON HALE [address] [place] [address], [address], [facility] 4 09:06:05 Pain of left ankle joint 273046793004 66465 Active 2023 CARON HALE [address] [place] [address], [address], [facility] 4 09:06:20 Metabolic acidosis 47049969 Active 2023 CARON HALE [address] [place] [address], [address], [facility] 4 09:07:02 Atypical squamous cells of undetermi shweta significa nce on cervical Papanicol aou smear 738406743 Active 2023 CARON HALE [address] [place] [address], [address], [facility] 4 15:46:53 Notes:Some problems listed i n Document: #[id number] could not be added to this patient's chart. Please review this document and add these problems to the patient's chart manually as needed. Problem Notes None recorded. Procedures Surgical History None recorded. Imaging Results Imaging Date Name Status LastModified by Organiz ation Details LastModified Time 03/10/2022 MAMMO, screening, digital, bilateral completed [facility] [address] [place], [address], 03/13/2022 09:45:02 03/10/2022 US, breast completed [facility] [address] [place], [address], 03/13/2022 09:45:15 06/28/2022 XR, chest, 2 view completed [facility] (Medical Records) [address] [place], [address], 07/04/2022 14:03:04 09/12/2022 MAMMO, diagnostic, digital, unilateral completed [facility] [address] [place], [address], 09/13/2022 14:13:26 03/08/2023 XR, knee completed [address] (Medical Records) [address] [place], [address], 03/09/2023 06:40:24 04/03/2023 MAMMO, diagnostic, digital, unilateral completed [address] [place], [address], 04/03/2023 14:28:51 06/19/2023 MRI, knee, w/ contrast completed [facility] (Medical Records) [address] [place], [address], 06/20/2023 15:51:45 10/23/2023 US, pelvis completed [address] (Medical Records) [address] [place], [address], 11/05/2023 14:54:50 12/12/2023 CT, abdomen + pelvis, w/o contrast completed [facility] (Medical Records) [address] [place], [address], 12/12/2023 08:50:42 03/02/2024 XR, lumbar spine, 2 view [facility] [place] [address] (Medical Records) [address] [place], [address], 03/03/2024 09:26:27 03/02/2024 XR, wrist + hand completed [facility] (Medical Records) [address] [place], [address], 03/03/2024 09:26:53 03/02/2024 XR, ankle completed [email or web address] (Medical Records) [address] [place], [address], 03/03/2024 09:27:12 03/02/2024 XR, knee completed [email or web address] (Medical Records) [address] [place] [address], [address], 03/03/2024 09:27:30 03/08/2024 CT, abdomen + pelvis, w/o contrast completed [facility] (Medical Records) [address] [place] [address], [address], 03/09/2024 10:29:31 03/20/2024 CT, abdomen + pelvis, w/o contrast completed [facility] (Medical Records) [address] [place] [address], [address], 03/20/2024 12:14:42 05/29/2024 gastric emptying study (PROC) completed [facility] (Medical Records) [address] [place] [address], [address], 05/29/2024 19:29:28 09/10/2024 CT, neck, soft tissue, w/o contrast completed [facility] (Medical Records) [address] [place] [address], [address], 09/11/2024 12:01:03 Procedure Notes None recorded. Medical Equipment None Reported. Allergies Allergen ID Allergen Name Allergen Category Reaction Reaction Severity Criticality Documentation Date Start Date Code Code System Note Provider Name and Address Organization Details Recorded Time 4899 shellfish derived food,medi cation other mild Not available 02/11/2021 67734 UNK mild facia l swell ing DELGADO ROMAN, CARON [address] [place], [place], [address], [facility] 1 14:16:06 7170 doxycycli ne Not available Not available Not available Not available 01/01/2023 3640 RxNorm CARON HALE [address] [place], [place], [address], [facility] 3 14:27:08 7171 vancomyci n medicatio n Not available Not available Not available 01/01/2023 42673 RxNorm CARON HALE [address] [place], [place], [address], [facility] 3 14:27:33 7172 influenza A (H1N1) medicatio n Not available Not available Not available 01/01/2023 41338 UNK CARON HALE [address] [place], [place], [address], [facility] 3 14:27:46 Medications Name [...] Address Organization Details Last Updated DateTime 01/01/2023 87131.22 g 102 /min 100 % 100 % CARON HALE [address] [place] [address] 3 14:02:25 Date Recorded Body height Body mass index (BMI) Body weight Heart rate Oxygen saturation Oxygen saturation in Arterial blood by Pulse oximetry Systolic blood pressure Diastolic blood pressure Provider Name and Address Organization Details Last Updated DateTime 4 144.78 cm 36.8 kg/m2 41970.7 g 105 /min 98 % 98 % 138 mm[Hg] 80 mm[Hg] Sunday Santo [facility] 4 16:29:45 Social History Question Answer Notes LastModified by Organizat ion Details LastModified Time Tobacco Smoking Status Never Smoker CARON HALE [address] [place] [address], [address] 01/01/2023 14:05:04 What Was The Date Of [...] SNOMED-CT Code Diagnosis ICD10 Code Diagnosis Note [id number] Juan Chou DO [facility] [address] [facility],[address] [place] [address] 02/11/2021 13:46:00 02/11/2021 15:39:08 Essential hypertension 18133931 I10 stable Gastropare sis due to diabetes mellitus 153799094 E13.43 would like to find new GI Hyperlipidemia 58447743 E78.2 stable last check prior to transfer Polycystic ovary syndrome 045157896 E28.2 will submit referral to gynecology Type 2 gladis betes mellitus 77144155 E11.9 will fu with endocrine referral for evaluation Mammograph ic mass of right breast 4274499749 3264524 R92.8 needs fu in April Osteoarthritis 860707366 M15.3 due to Lyme diseasemos tly knees and hips but it does move aroundlast rheumatolo gy visit was 10 years ago Genetic sc reening for disorder 506713234 Z13.71 will fu with genetic screening Fatigue 41372645 R53.83 will fu with testing rheum panel and recheck TSH with T3 01925 Juan Chou [facility] [address] [facility],[place] [address] 03/21/2021 08:11:44 03/21/2021 16:21:41 Gastroparesis due to type 2 diabetes mellitus 132698951 E11.43 working on diet and using meds for ER Nausea and vomiting 1691999 R11.2 has zofran script from ER Diarrhea 34709113 R19.7 will continue on the dissolvabl e N/V mednot interested in a suppositor y Tachycardia 9275495 R00. 0 will fu with event monitor 84876 Juan Chou [facility] [address] [facility],[place] [address] 05/10/2021 09:15:21 05/10/2021 11:28:29 Tear of medial meniscus of knee 991142049 S83.242A will fu with MRI to confirm probable [place] [address] Juan Chou [facility] [address] [facility],[place] [address] 06/17/2021 08:20:00 06/20/2021 13:50:14 Panic disorder 257763125 F41.0 sent referralwi ll fu if the patient is not contacted Gastropare sis due to type 2 diabetes mellitus 707478358 E11.43 resolved from recent hospital trip Type 2 gladis betes mellitus 43153795 E11.9 waiting on endo appt Essential hypertension 39349303 I10 stable Gastropare sis due to diabetes mellitus 288314016 E13.43 waiting for GI appt Hyperlipidemia 04485319 E78.2 stable last check prior to transfer Insomnia 473075764 G47.0 1 will start at 10 mg, the patient has gastropare sis, does not digest and absorb things wellwill start at a higher dose [id number] Juan Chou [facility] [address] [facility], [facility] [place] [address] 07/22/2021 16:18:01 07/25/2021 16:33:10 Type 2 diabetes mellitus 89271332 E11.9 stable History of thyroidectomy 040938491 Z90.09 fu with endocrine Obesity 520036009 E66.8 start topimaxfu in two weeks 92155 Juan Chou [facility] [address] [facility], ite [facility] [address] 10/11/2021 13:34:05 10/11/2021 14:40:37 Uvulitis 049011657 K12.2 will start on z leonard for prevention of infection and for anti-infla mmatory properties poor reaction with steriods, will try meloxicam in combo Cough 49527798 R05.1 will start on cough suppressan t as the cough is the main source of her continued discomfort [address] Juan Chou [facility] [address] [facility], ite D [facility] [place] [address] 02/28/2022 10:57:02 02/28/2022 13:19:24 Loss of hair 037790708 L63.0 talking to endocrinol ogy Anxiety 06454340 F41.1 will restart on bupropionw ill help with weight loss Polycystic ovary syndrome 461468303 E28.2 might be having a flare up Osteoarthritis 850050961 M15.3 due to Lyme diseasemos tly knees and hips but it does move aroundlast rheumatolo gy visit was 10 years ago Lesion of breast 9334320 04 N60.01 will fu with MM screening, every 6 mos Nausea and vomiting 1693 2000 R11.2 will trial alternativ e nausea med prior to bed [id number] Juan Chou [facility] [address] [facility], [place] [facility] [place] [address] 05/01/2022 09:36:04 05/01/2022 16:59:18 Type 2 diabetes mellitus 64179750 E11.9 stabledisc ussed other meds to use for both diabetes and weight loss Overweight 786162462 E66 .3 discussed increasing the topimax and waiting to see if ozempic or mounjaro come back into [facility] one of those [facility] Depressive disorder 3548 9007 F33.9 start duloxetine 15365 Juan Chou [facility] [address] [facility], [place]e [facility] [place] [address] 01/01/2023 13:58:24 01/01/2023 15:32:37 Anxiety 86525742 F41.1 will restart on bupropionw ill help with weight loss Depressive disorder 3548 9007 F33.9 start duloxetine Type 2 gladis betes mellitus 13847555 E11.9 stabledisc ussed other meds to use for both diabetes and weight loss Gastropare sis due to type 2 diabetes mellitus 762789119 E11.43 resolved from recent hospital trip Vesicular eruption 18815 008 R23.8 will set up with blood work and wound culturesta rt on keflex and hibiclens will set up with lab work History of thyroidectomy 635296254 Z90.09 fu with endocrine Lesion of breast 9810178 04 N60.01 will fu with MM screening, every 6 mos Mammography abnormal 168 945654 R92.8 will set up with new EMAIL MARKETING PROCESSOR closer to patient [id number] Juan Chou DO [facility] [address] [facility] [place], [place] [address] 11/23/2023 16:10:36 11/27/2023 09:16:22 Depression screening 322386083 Z13.31 stable Polycystic ovary syndrome 399694855 E28.2 need EMAIL MARKETING PROCESSOR referral Gastropare sis due to type 2 diabetes mellitus 304542649 E11.43 resolved from recent hospital trip Type 2 gladis betes mellitus 43768019 E11.9 stable Overweight 570333071 E66 .3 discussed increasing the topimax and waiting to see if ozempic or mounjaro come back into stockwill try one of those if they [facility] [id number] DO [facility] [address] [facility],[place] [place] [address] 04/16/2024 09:44:20 04/16/2024 16:00:21 Overweight 294847295 E66.3 restart Type 2 gladis betes mellitus 01088553 E11.9 stable Gastropare sis due to type 2 diabetes mellitus 292375838 E11.43 resolved from recent hospital tripneeds alt med for diabetes control Atypical s quamous cells of undetermined significance on cervical Papanicolaou smear 345065699 R87.610 will resubmit referral againhave hr follow up with their office again Health Concerns Section Related Observation LastModified by Organization Detai ls LastModified Time None Recorded Concern Status LastModified by Organization Details LastModified Time None Recorded Advance Directives Directive None Recorded Payers Encounter Date Sequence Insurance Name Policy Number Policy Lee Covered Member ID Lee Member ID Guarantor Name 02/28/2022 1 [facility] [id number] [facility] [id number] [facility] 05/01/[address] [place] [address] [id number] [facility] [id number] [facility] 01/01/[address] [place] [address] [id number] [facility] [id number] [facility] 11/23/[address] [place] [address] [id number] [facility] [id number] [facility] [place] [address] [id number] [facility] [id number] [facility] Notes Date Note Type Note Provider Name and Address Organization Details Recorded Time 2 text/html the patient reports that she has been having the weight gain and hair lossshe is also throwing up in her sleep again, sleeps on her side the patient reports that she is talking to endo about her thyroidwill be testing CARON HALE [address] [facility], [place], [address], D[facility] Nguyen [facility] 02/28/2022 11:40:21 2 text/html f/u [...] for the MRI results CARON HALE [address] [place], [address], [facility] 05/01/2022 16:58:49 3 text/html c/o rash rash, vesicles, red base, clear dischargewith gastroparesis hasn't been able to keep her meds down and could be having issues with the generic levomay be more suited toward synthroid will set up with blood work will f/u with patient after work up needs new EMAIL MARKETING PROCESSOR CARON HALE [address] [place], [address], 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 11/23/2023 17:09:21 4 text/html [...] the patient will need additional referral for [facility] gynoncolgystated they need verbal order which they are received currently liquid diet, protein shakeslimited solids on multivitamin currently needs to discuss f/u with endoneeds additional referral for t2dm CARON HALE [address] [facility], [place], [address], DARLENE Patrick [facility] 04/16/2024 15:59:11 OBGyn Episode No OBEpisode recorded.
== END 2024-09-15 09:00 | disposition home or self-care (01) ==
LOC: HO.HGI 08:46
PROVIDERS: PCP Internal Medicine; Visit Provider Internal Medicine
DX: E11.43 Type 2 diabetes mellitus with diabetic autonomic (poly)neuropathy (principal); K31.84 Gastroparesis; K21.9 Gastro-esophageal reflux disease without esophagitis
CPT/HCPCS: 98004

== ENCOUNTER 2024-12-26 08:28 | Outpatient (REF) | payer OTHER, SELFPAY ==
--- OUTSIDE RECORDS SUMMARY | 2021-04-06 14:16 | XMS_ITS | Encounter Summary ---
Author Organization [facility] Address [address] [place] [phone] Phone Care Team Providers Care Rivet Hole Machine Operator Name Role Phone Janny Peoples SNORKELLING INSTRUCTOR Primary Care Provid er Encounter Details Date Type Department Care Team (Late st Contact Info) Description 04/06/2021 1:16 PM [facility] Hospital Encounter [facility] [address] [place] [phone] Mackenzie Oconnell FNP [address] [place] [phone] [email or web address] Social History Tobacco Use Types Packs/Day [...] report originally createdby Farhad Chau. Mackenzie Oconnell GROUP FITNESS INSTRUCTOR IMG XR LOWER EXTREMITY Malu l Result documented in this encounter Visit Diagnoses Not on filedocumented in this encounter Additional Health Concerns Infection Onset Date Last Indicated Resolved Time CoV-Risk 06/28/2024 06/28/2024 07/09/2024 1:24 AM EST documented as of this encounter Care Teams Rivet Hole Machine Operator Relationship Specialty Start Date End Date Janny Peoples NP [address] [place], [place] [phone] [email or web address] PCP - General Family Medicine 06/06/19 05/18/21 documented as of this encounter Additional Source Comments The information contained in this document represents components of the legal health record. It is not the complete legal health record.[facility]
--- OUTSIDE RECORDS SUMMARY | 2024-12-20 23:59 | XMS_ITS | Continuity of Care Document ---
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 Name Role Phone Juan Chou DO [facility] Primary Care Physician [phone] Encounter [facility] Date(s): [facility]/20/24 [facility] [address], [address] [place] [address] Encounter Type: Triage Allergies, Adverse Reactions, Alerts Substance Criticality Severity Reaction Reaction Severity Status doxycycline Active erythromycin itching and rash Active flu vaccines Active vancomycin Active Reglan Dystonia Akathisia Active Immunizations Given and Recorded Vaccine Date Status Refusal Reason SARS-CoV-2 (COVID-19) mRNA BNT-162b2 vac 10/23/20 Recorded SARS-CoV-2 (COVID-19) mRNA BNT-162b2 vac 09/22/20 Recorded SARS-CoV-2 (COVID-19) mRNA BNT-162b2 vac 08/30/20 Recorded Medications buPROPion 150 mg/24 hours (XL) oral tablet, extended release 1 tablet = 150 mg, By Mouth, Daily, # 30 tablet, 0 Refills, Maintenance, 07/13/21 11:24:00 AM EST, XLTablet, Partial fill upon patient request if the prescription is for a schedule II opioid drug. Start Date: 07/13/21 Status: Ordered Quantity: 30.0 Unit: tablet Repeat number: 1 erythromycin 250 mg oral tablet TAKE 1 TABLET ORALLY EVERY 8 HOURS WITH MEALS Start Date: 10/17/24 Status: Ordered Repeat number: 1 glipiZIDE 5 mg oral [...] Refills, Maintenance, 01/24/22 1:00:00 PM EDT, Tablet, [facility]/pharmacy #[id number], Partial fill upon patient request if the prescription is for a schedule II opioid drug., 145, cm, 11/02/21 9:01:00 EDT, Height, 91, kg, 05/28/21 0:57:00 EST, Dry Weight Start Date: 01/24/22 Status: Ordered Quantity: 45.0 Unit: tablet Repeat number: 4 Liletta 52 mg intrauterine device 1 each = 52 mg, Vaginally, Once, For delivery to [facility] OR for procedure 11/11/24 at 0730, # 1 each, 0 Refills, Soft Stop, 11/07/24 2:04:00 PM EDT, [facility] 3, 147.6, cm, 11/07/24 11:54:00 EDT, Height, 78.7, kg, 11/07/24 11:54:00 EDT, Dry Weight Start Date: 11/07/24 Status: Ordered Quantity: 1.0 Unit: each Repeat number: 1 omeprazole 20 mg oral enteric coated capsule 1 capsule = 20 mg, By Mouth, Daily, before a meal, 0 Refills, Maintenance, 11/11/24 7:46:00 AM EDT, EC Capsule, Partial fill upon patient request if the prescription is for a schedule II opioid drug. Start Date: 11/11/24 Status: Ordered Repeat number: 1 phentermine 37.5 mg oral capsule 1 capsule = 37.5 mg, By Mouth, Daily in AM, at least one hour after meals, 0 Refills, Maintenance, 11/11/24 7:45:00 AM EDT, Capsule, Partial fill upon patient request if the prescription is for a schedule II opioid drug. Start Date: 11/11/24 Status: Ordered Repeat number: 1 topiramate 100 mg oral tablet TAKE 1 TABLET BY MOUTH EVERY DAY DIRECTED Start Date: 10/17/24 Status: Ordered Repeat number: 1 Problem List Condition Confirmation Course Effective Dates Status H ealth Status Informant Abnormal uterine bleeding (AUB) Confirmed Active Anxiety Confirmed Active Rheumatoid arthritis involving both knees Confirmed Active Breast lump Confirmed Active Dysmenorrhea Confirmed Active Excisional biopsy of breast 1 [...] (less than 100 in lifetime) entered on: 10/07/24 Sex Sex Representation Female (finding) Patient Care team information Care Team Personnel Name: Juan Chou DO Position: Reference Physician Member Role: PCP Address: [address] [place] [address] Internal Medicine [place], [place] [address] Telecom: Care Team Related Persons Name: SHAYNE ROBERSON Name: ERASMO DIAZ Name: JOCELYN DIAZ Insurance Providers Guarantor name: RIGO DIAZ Health Plan Information #: 1 Payer: [facility] FF NON BHP HMO P Payer Identifier: NA Member Number: [id number] Group Number: [id number] Subscriber Identifier: [id number] Relationship to Subscriber: self Coverage Type: Other Private Insurance Coverage Verification Date: NA Telecom: NA Address:
--- NOTE | ~2024-12-26 | FL_ITS ---
EXAMINATION: XR BARIUM SWALLOW CLINICAL INFORMATION: Gastroparesis. COMPARISON: Abnormal nuclear medicine gastric emptying study 05/29/2024. TECHNIQUE: Routine barium swallow was performed in upright with thick barium and barium coated saltine cracker and thin barium in prone lying position. FINDINGS: Following oral administration of thick barium and effervescent granules there is normal propagation bolus from the oral cavity through the pharynx, esophagus into stomach. There is mild indentation of ventral cervical esophageal wall likely secondary to surgery or scarring from previous partial thyroidectomy. No No obstruction, narrowing or stricture seen in the esophagus. No extrinsic compression. On oral administration of thick barium with barium paste there is normal oral mastication and propagation of bolus from the oral cavity through the pharynx, esophagus into stomach. On placing patient prone lying and oral administration of thin barium there is good distention of the entire esophagus without any intraluminal filling defect or narrowing. There is a small sliding hiatal hernia without reflux. Incidental finding of surgical angelita in neck likely from partial thyroidectomy. FLUOROSCOPY TIME: 3 minutes and 6 seconds 2620 uGy-m2 (microgray-meter squared) FL/FL barium swallow IMPRESSION: Indentation of cervical esophageal wall especially with oral demonstration of thin barium likely scarring from previous partial thyroidectomy. There is no obstruction or narrowing seen in the cervical or thoracic esophagus. Especially no obstruction seen with solid food. There may be some sensation by the patient when swallowing solid food but definitely no obstruction area Small sliding hiatal hernia with reflux in lying position. Patient has no complaint of epigastric pain Electronically signed by: Shorty Howell MD 12/26/2024 10:24 AM EDT
--- OUTSIDE RECORDS SUMMARY | 2024-12-26 08:37 | XMS_ITS | Patient Health Record ---
Author Organization [facility] Address [address] [place] [address] Care Team Providers Care Nuclear Reactor Operator Name Role Phone Janny Peoples Primary Care Provider Unavail able Faizan Sierra Jr Unavailable [phone] Allergies Allergen (clinical drug ingredient) Drug/Non Drug [...] Problem Status W/U Status Risk Notes Problem [id number] Gastroparesis (K31.84) Active confirmed Plan Of Treatment No Information Insurance Providers Payer Name Payer Address Payer Phone Subscriber Number Group Number Insured Name Patient Relationship to Insured Coverage Start Date Coverage End Date [employer] P[employer]GRIM [address] [place] [phone] [id number] RIGO DIAZ Self - patient is the insured Medical (General) History Medical History History ICD Code PCOs - polycystic ovarian syndrome gastroparesis thyroid nodule - partial thyroid removed lyme disease osteoarthritis Surgical History Surgery Date(Month/Year) thyroidectomy - nodule and partial thyro id duct removal - left breast cholecystectomy
== END 2024-12-26 08:29 | disposition home or self-care (01) ==
LOC: HO.XRAY 08:28
PROVIDERS: PCP Internal Medicine; Visit Provider Internal Medicine
DX: K31.84 Gastroparesis (principal)
CPT/HCPCS: 74220

== ENCOUNTER → 2024-12-26 08:30 | Outpatient (BNV) | payer OTHER, SELFPAY | PROVIDERS: PCP Internal Medicine; Visit Provider Radiology Diagnostic Radiology | DX: K44.9 Diaphragmatic hernia without obstruction or gangrene (principal) | CPT/HCPCS: 74221 ==

== ENCOUNTER 2024-12-31 12:48 | Outpatient (AMB) | payer OTHER, SELFPAY ==
--- OUTSIDE RECORDS SUMMARY | 2021-04-06 14:16 | XMS_ITS | Encounter Summary ---
Author Organization [facility] Address [address] [place] [address] Phone Care Team Providers Care Peanut Grader Name Role Phone Janny Peoples VA UNDERWRITER Primary Care Provid er Encounter Details Date Type Department Care Team (Late st Contact Info) Description 04/06/2021 1:16 PM [facility] Hospital Encounter [facility] [address] [place] [phone] Mackenzie Oconnell FNP [address] [place] [phone] [email or web address] Social History Tobacco Use Types [...] report originally createdby Farhad Chau. Mackenzie Oconnell ENTRY MANAGER IMG XR LOWER EXTREMITY Malu l Result documented in this encounter Visit Diagnoses Not on filedocumented in this encounter Additional Health Concerns Infection Onset Date Last Indicated Resolved Time CoV-Risk 06/28/2024 06/28/2024 07/09/2024 1:24 AM EST documented as of this encounter Care Teams Peanut Grader Relationship Specialty Start Date End Date Janny Peoples NP [address] [place], [place] [phone] [email or web address] PCP - General Family Medicine 06/06/19 05/18/21 documented as of this encounter Additional Source Comments The information contained in this document represents components of the legal health record. It is not the complete legal health record.[facility]
--- OUTSIDE RECORDS SUMMARY | 2024-12-28 23:59 | XMS_ITS | Continuity of Care Document ---
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 Name Role Phone Juan Chou DO Primary Care Physician En[facility] Date(s): 11/28/24 [facility] [address], [address] [place] [address] Attending Physician: Jeniffer Elias Admitting Physician: Jeniffer Elias Referring Physician: Jeniffer Elias Encounter Type: Triage Allergies, Adverse Reactions, Alerts [...] Refills, Maintenance, 01/24/22 1:00:00 PM EDT, Tablet, [facility]/pharmacy #[id number], Partial fill upon patient request if the prescription is for a schedule II opioid drug., 145, cm, 11/02/21 9:01:00 EDT, Height, 91, kg, 05/28/21 0:57:00 EST, Dry Weight Start Date: 01/24/22 Status: Ordered Quantity: 45.0 Unit: tablet Repeat number: 4 Liletta 52 mg intrauterine device 1 each = 52 mg, Vaginally, Once, For delivery to [facility] OR for procedure 11/11/24 at 0730, # 1 each, 0 Refills, Soft Stop, 11/07/24 2:04:00 PM EDT, [facility] 3, 147.6, cm, 11/07/24 11:54:00 [...] Position: Reference Physician Member Role: PCP Address: [address] [place] [address] Internal Medicine [address] Telecom: Care Team Related Persons Name: SHAYNE ROBERSON Name: ERASMO DIAZ Name: JOCELYN DIAZ Insurance Providers Guarantor name: RIGO DIAZ [facility] Plan Information #: 1 Payer: [facility] FF NON P HMO P Payer Identifier: NA Member Number: [id number] Group Number: [id number] Subscriber Identifier: [id number] Relationship to Subscriber: self Coverage Type: Other Private Insurance Coverage Verification Date: NA Telecom: NA Address: NA
--- NOTE | 2024-12-31 12:49 | MHC.OFFVIS ---
Vital Signs 12/31/24 12:51 Height 4 ft 9 in Weight 169 lb BMI 36.6 Intake Visit Reasons: 3 MONTHS F/U Intake Note: Est pt for mgmt of chronic abd pain and gastroparesis. CC: C.O. persistence of chronic sx. Pt denies any significant changes but also denies any improvements. Allergies influenza virus vaccine, specific (FLU VACCINE) Allergy (Mild, Verified 09/10/24 14:27) UNKNOWN doxycycline (DOXYCYCLINE) Allergy (Unknown, Verified 09/10/24 14:27) SWELLING vancomycin (VANCOMYCIN) Allergy (Unknown, Verified 09/10/24 14:27) ANAPHYLAXIS erythromycin base Allergy (Verified 09/10/24 14:27) Itching metoclopramide (From Reglan) Allergy (Verified 09/10/24 14:27) Unknown shellfish Allergy (Mild, Uncoded 09/10/24 14:27) Swelling HPI Comments Details: 34 year female who carries a dx of idiopathic gastroparesis diagnosed in 2017 who is here post hospitalisation follow up. Pt has been to [facility] multiple times in the last few months. Was seen by me 03/21/[address] Mejia 03/31. 04/02: Had EGD with pyloric balloon dilation and 100u botox inj. Now reports doing much better with acid reflux as well as with tolerating liquids. Still struggling with solids. Tries to eat at least one solid food per day but has bloating and nausea which starts within 10-15 mins of consuming it. Maintaining caloric intake with protein shakes. However feels nutritional content is poor as has started to lose hair. Meds: Taking prilosec 20 Erythromycin 250 TID -- no drug holiday so far. Pt also recently diagnosed with T2DM in the hospital - currently not on any meds at all. Discontinued metformin due to side effects. Checking BG fastin-140. Post prandial: 138-172. Will be seeing Endocrine (Dr Annie Hussein at [facility]) next month. 06/16/24: Doing better - has been able to keep food down. Able to eat better. Has better control of DM which has been helping. Also working on weight, has lost almost 8# since she was last seen. Taking erythromycin 250 mg TID. Has incorporated more smoothies in her diet, in addition, strains them, to get out of excessive fiber. Is working on seeing a safety and skill based pay manager towards the end of this month. 09/15/24: Here for telehealth visit. Had an episode of acid reflux in her sleep. For the past week has also been having sensation of a lump in her throat and had a choking episode for which her room mate had to give her a heimlich maneuver. Has dinner 4 h before goes to bed. Takes glipizide 5 mg po once daily. erythromycin 250 TID - drug holiday S/Sun 12/31/24: Here for telehealth. Reports more nausea with IUD placement 3 weeks ago. Outside of this, symptoms are controlled. Diabetes control is much better now. Last random blood sugar less than 180. Continues with omeprazole and erythromycin 5 days a week. Barium swallow reviewed, cricopharyngeal narrowing versus indentation from previous thyroidectomy scar. Patient has intermittent choking episodes. Would like to pursue EGD with dilation. [facility] Medical History (Updated 12/31/24 @ 14:35 by Abby Luna MD) Encounter for intrauterine device placement New onset type 2 diabetes mellitus Cholecystectomy planned Pre-diabetes Lyme disease Osteoarthritis PCOS (polycystic ovarian syndrome) Gastroparesis Surgical History (Updated 12/31/24 @ 12:51 by RENÉ Arellano) H/O dilation and curettage Hx of colonoscopy History of esophagogastroduodenoscopy (EGD) History of cholecystectomy H/O partial thyroidectomy Family History Maternal Aunt Breast cancer Social History Household Members: Friend(s) Housing: House Housing Other:: s stairs Do you presently have visiting nurse or other home services: No Unable to assess alcohol history related to: Unknown Alcohol intake: never Patient Tobacco Use Status: Never used Tobacco Second Hand Smoke Exposure: No service: No Current occupational status: employed Female Reproductive History Menstrual Age of Menarche: 15 Review of Systems Const All systems reviewed & are unremarkable except as noted in HPI and below Physical Exam Exam Exam: Video visit: No acute distress No icterus noted No facial asymmetry Speaking in full sentences Vital Signs: BMI result Body Mass Index 36.6 Telehealth Telehealth Telehealth Platform: [facility] Location of provider rendering services: practice address Location of patient: address on file Patient Identification confirmed using: Name, : Yes Telehealth method: video Patient verbally consented to treatment: Yes Patient verbally consented to billing insurance company: Yes Patient informed of any privacy concerns related to visit: Yes Minutes spent on Phone/Video with Pt.: 11 Assessment & Plan Assessment & Plan (1) Gastroparesis: Code(s): K31.84 - Gastroparesis Category: Medical (2) Obesity (BMI 35.0-39.9 without comorbidity): Code(s): E66.9 - Obesity, unspecified Category: Medical (3) Diabetes mellitus with gastroparesis: Code(s): E11.43 - Type 2 diabetes mellitus with diabetic autonomic (poly)neuropathy Category: Medical (4) Gastroesophageal reflux disease: Code(s): K21.9 - Gastro-esophageal reflux disease without esophagitis (5) Dysphagia: Code(s): R13.10 - Dysphagia, unspecified Category: Medical Plan 1. Idiopathic gastroparesis Diagnosed in 2018 years before developing DM. However now with DM, will need strict glycemic control to avoid delayed gastric emptying 2/2 hyperglycemia. Goal BG <180 post prandial. s/p pyloric dil and botox 04/02/24. Doing a lot better. Will attempt to titrate off the erythromycin. Plan: - BG control <180 mg/dl post prandial - Small frequent meals - Low fat low fiber diet. - Small particle diet. Liquid diet during a flare. - decrease erythromycin to BID x 2 days and then once daily x 2 days and then stop 2. Dysphagia 3. GERD Barium swallow reviewed. Likely has prior thyroidectomy scar, but cricopharyngeal narrowing can not be ruled out. Will proceed with EGD with dilation as per request. She is advised to continue PPI, due to documented reflux on barium swallow. Plan: - omeprazole 20 - EGD to be booked Follow up after EGD Coding Level of Care Code Tele Est Pt Level 4 (82336) Diagnoses Gastroparesis K31.84 Obesity (BMI 35.0-39.9 without comorbidity) E66.9 Diabetes mellitus with gastroparesis E11.43 Gastroesophageal reflux disease K21.9 Dysphagia R13.10
[2024-12-31 12:51] VITALS: BMI 36.6
--- OUTSIDE RECORDS SUMMARY | 2024-12-31 13:38 | XMS_ITS | Patient Health Record ---
Author Organization [facility] Address [address] [place] [address] Care Team Providers Care Theatre Manager Name Role Phone Janny Peoples Primary Care [...] Problem Status W/U Status Risk Notes Problem [id number] Gastroparesis (K31.84) Active confirmed Plan Of Treatment No Information Insurance Providers Payer Name Payer Address Payer Phone Subscriber Number Group Number Insured Name Patient Relationship to Insured Coverage Start Date Coverage End Date [employer] P[employer]GRIM [address] [place] [phone] [id number] RIGO DIAZ Self - patient is the insured Medical (General) History Medical History History ICD Code PCOs - polycystic ovarian syndrome gastroparesis thyroid nodule - partial thyroid removed lyme disease osteoarthritis Surgical History Surgery Date(Month/Year) thyroidectomy - nodule and partial thyro id duct removal - left breast cholecystectomy
== END 2025-01-06 08:07 | disposition home or self-care (01) ==
LOC: HO.HGI 12:48
PROVIDERS: PCP Internal Medicine; Visit Provider Internal Medicine
DX: E11.43 Type 2 diabetes mellitus with diabetic autonomic (poly)neuropathy (principal); K31.84 Gastroparesis; E66.9 Obesity, unspecified; K21.9 Gastro-esophageal reflux disease without esophagitis; R13.10 Dysphagia, unspecified
CPT/HCPCS: 99214

== ENCOUNTER 2025-01-01 22:30 | Emergency (ER) | payer OTHER, SELFPAY ==
--- NOTE | ~2025-01-01 | CT_ITS ---
CLINICAL HISTORY: sbo gastroparesis CT abdomen and pelvis with contrast Comparison: CR - XR KUB - 01/02/25 00:[address]/REG/GA/SR - CT ABDOMEN PELVIS WITHOUT IV CONTRAST - 03/20/24 05:51 EST Findings: CT abdomen: Lung bases are clear. No acute bony abnormality. No focal hepatic lesions. Main portal vein is patent. Gallbladder is surgically absent. Spleen, pancreas, and adrenal glands are unremarkable. Symmetric enhancement of the kidneys without mass, hydronephrosis, or nephrolithiasis. High-density contrast material seen within the stomach and small bowel. This extends to the cecum. No dilated small bowel is evident. No free fluid or free air. CT pelvis: Contrast is seen within the cecum. No colonic wall thickening or pericolonic inflammatory stranding is evident. The tiny focus of increased density within the mesenteric fat adjacent to the descending colon within the left midabdomen is unchanged, likely due to scarring. This is not of the appearance of an acute inflammatory process. No findings of appendicitis. Left ovarian cyst measures 3.0 x 4.0 cm in size. Small amount of adjacent free fluid. Interval placement of a IUD. IUD is low in position within the lower uterine segment extending towards the cervical os. There is rightward tilting of the IUD as well. IMPRESSION: 1. Left ovarian cysts as above with small amount of adjacent free fluid. This suggests recent cyst rupture. Pelvic ultrasound could further evaluate if the patient's pain is felt to be gynecologic in nature. 2. IUD is low in position within the lower uterine segment extending towards the cervix. 3. No findings of bowel obstruction. This document has been electronically signed by: Leobardo Mcintyre MD on 01/02/2025 03:54:07
--- NOTE | ~2025-01-01 | XR_ITS ---
CLINICAL HISTORY: pain - UGI done 6 days ago, looking for barium burden prior to CT scan. 1 view abdomen Comparison: None provided Findings: No pneumoperitoneum or pneumatosis. Moderate fecal load within the colon. No barium seen within the bowel loops. No abnormal calcifications. No acute fractures. IUD overlies the lower uterus. Surgical clips in the region of the gallbladder fossa. IMPRESSION: The bowel gas pattern is normal. No barium seen within the bowel loops. This document has been electronically signed by: Maged Cast MD on 01/02/2025 00:33:41
[2025-01-01 22:34] VITALS: BP 184/106; PULSE 112; RESP 20; TEMP 36.9; O2SAT 100; BMI 36.6
[2025-01-01 23:13] LABS: MANUAL DIFF FLAG NO
[2025-01-01 23:16] LABS: Hematocrit 38.7 % (37.0-47.0); Hemoglobin 13.3 g/dl (12.0-16.0); Imm Gran Abs Auto 0.05 X10*3/uL (0.00-0.03); Imm Gran Pct Auto 0.4 % (0.0-0.4); Lymphocytes Absolute Auto 4.0 X10*3/uL (1.2-4.9); Mean Corpuscular HGB Conc 34.4 g/dl (31.0-35.0); Mean Corpuscular Hemoglobin 29.0 pg (27.0-33.0); Mean Corpuscular Volume 84.3 fL (80.0-98.0); NRBC Abs Auto 0.000 X10*3/uL (0.0-0.012); NRBC Pct Auto 0.0 /100WBC (0.0-0.2); Platelet Count 400 X10*3/uL (160-400); Red Blood Count 4.59 X10*6/uL (4.20-5.50); White Blood Count 12.1 X10*3/uL (4.8-10.8)
[2025-01-01 23:17] LABS: Appearance Urine Cloudy; Glucose Urine UA 500 mg/dL (Negative); PH 5.5 (5.0-9.0); Specific Gravity - Urine 1.025 (1.005-1.025); UMIC TRIGGER UACC YES
[2025-01-01 23:39] LABS: Alanine Aminotransferase 33 U/L (0-31); Albumin Level 4.3 g/dL (3.5-5.0); Alkaline Phosphatase 84 U/L (39-117); Anion Gap 15 (12-20); Aspartate Amino Transferase 16 U/L (5-31); Blood Urea Nitrogen 12 mg/dL (9-16); Calcium 9.0 mg/dL (8.4-10.2); Carbon Dioxide 22 mmol/L (22-29); Chloride 108 mmol/L (96-108); Creatinine Clr Calc Pharmacy 83.4; Estimated Glomerular Filt Rate > 60; Potassium 3.7 mmol/L (3.3-5.1); Sodium 141 mmol/L (135-145); Total Protein 7.4 g/dL (6.5-8.0)
[2025-01-02] MEDS: diazePAM 10 MG/2 ML CARTRIDGE 5 MG IVPUSH ×2 (01:08→02:30)
[2025-01-02 01:09] VITALS: BP 192/110; PULSE 86; RESP 16; O2SAT 98
--- NOTE | 2025-01-02 02:30 | ED.GENADULT ---
HPI - General Adult General Chief complaint: General Medical Stated complaint: pelvic pain Time Seen by Provider: 01/01/25 22:58 Source: patient Limitations: no limitations History of Present Illness ED Provider: Dixie Worley PA-C HPI narrative: 34-year-old female with a history of obesity, diabetes, gastroparesis, PCOS, abnormal uterine bleeding who presents with abdominal pain since earlier this morning. Pain across lower abdomen described as cramping that fluctuates in intensity. Patient states her discomfort becomes severe at times, with the associated diaphoresis. The pain radiates to the low back. Associated abdominal bloating, nausea vomiting. The patient is chronically constipated, no diarrhea no fever. She states she did have a bowel movement today. No risk for STD, no vaginal discharge. No dysuria, hematuria or history of kidney stones. Related Data Home Medications ?Medication ?Instructions ?Recorded ?Confirmed bupropion HCl 150 mg tablet,12 hr 150 mg PO DAILY 03/06/21 07/04/24 sustained-release topiramate 100 mg tablet (Topamax) 100 mg PO DAILY 07/30/23 07/04/24 levothyroxine 25 mcg tablet mcg PO 04/15/24 07/04/24 glipizide 5 mg tablet mg PO DAILY 06/16/24 07/04/24 phentermine 30 mg capsule mg PO DAILY 06/16/24 07/04/24 Previous Rx's ?Medication ?Instructions ?Recorded blood sugar diagnostic (FreeStyle #100 ea 03/23/24 Lite Strips) blood-glucose meter (FreeStyle #1 ea 03/23/24 Lite Meter kit) lancets 28 gauge (FreeStyle #100 ea 03/23/24 Lancets) erythromycin 250 mg tablet 250 mg PO Q8H #90 tabs 09/15/24 omeprazole 20 mg capsule,delayed 20 mg PO DAILY@0630 #90 caps 09/15/24 release wedge pillow #1 ea 09/15/24 clindamycin HCl 300 mg capsule 300 mg PO BID #14 caps 01/02/25 (Cleocin HCl) metronidazole 500 mg tablet 500 mg PO BID #14 tabs 01/02/25 oxycodone 5 mg tablet 5 mg PO BID PRN pain #8 tabs 01/02/25 Allergies Allergy/AdvReac Type Severity Reaction Status Date / Time influenza virus vaccine, Allergy Mild UNKNOWN Verified 01/01/25 22:39 specific (FLU VACCINE) doxycycline (DOXYCYCLINE) Allergy Unknown SWELLING Verified 01/01/25 22:39 vancomycin (VANCOMYCIN) Allergy Unknown ANAPHYLAXIS Verified 01/01/25 22:39 erythromycin base Allergy Itching Verified 01/01/25 22:39 metoclopramide (From Reglan) Allergy Unknown Verified 01/01/25 22:39 shellfish Allergy Mild Swelling Uncoded 09/10/24 14:27 Review of Systems Review of Systems: Yes all other systems are reviewed and are negative Constitutional: Constitutional: Denies fatigue and Denies fever(s) Cardiovascular: Cardiovascular: Denies chest pain and Denies dyspnea Respiratory: Respiratory: Denies cough and Denies dyspnea Gastrointestinal: Gastrointestinal: Reports abdominal pain, Reports bloating, Reports constipation, Denies diarrhea, Reports nausea and Reports vomiting Genitourinary: Genitourinary: Denies hematuria, Denies dysuria, Denies flank pain and Denies vaginal discharge Musculoskeletal: Musculoskeletal: Denies back pain Endocrine: Endocrine: Denies fatigue PMFSH Past Medical History Attestation statement: The following information was validated with the patient. Medical History (Updated 01/02/25 @ 04:49 by Izzy Field MD) Encounter for intrauterine device placement New onset type 2 diabetes mellitus Cholecystectomy planned Pre-diabetes Lyme disease Osteoarthritis PCOS (polycystic ovarian syndrome) Gastroparesis Surgical History (Updated 12/31/24 @ 12:51 by RENÉ Arellano) H/O dilation and curettage Hx of colonoscopy History of esophagogastroduodenoscopy (EGD) History of cholecystectomy H/O partial thyroidectomy Family History Family History Maternal Aunt Breast cancer Social History Social History Household Members: Friend(s) Housing: House Housing Other:: s stairs Do you presently have visiting nurse or other home services: No Unable to assess alcohol history related to: Unknown Alcohol intake: never Patient Tobacco Use Status: Never used Tobacco Second Hand Smoke Exposure: No service: No Current occupational status: employed Physical Exam ED Vital Signs: Vital Signs - 24 hr 01/01/25 22:34 01/02/25 01:09 01/02/25 04:00 Temperature 98.4 F Pulse Rate 112 H 86 Respiratory Rate 20 16 Blood Pressure 184/106 H 192/110 H 140/92 H Pulse Oximetry 100 98 Oxygen Delivery Method Room Air Room Air 01/02/25 05:13 01/02/25 05:18 Temperature 98.0 F 98.0 F Pulse Rate 95 95 Respiratory Rate 16 16 Blood Pressure 138/88 138/88 Pulse Oximetry 98 98 Oxygen Delivery Method Room Air Room Air BMI result Body Mass Index 36.6 Const Other: Alert, appears very uncomfortable Orientation/consciousness: patient oriented x3 Resp Effort & Inspection: normal respiratory effort Cardio Other: Normal peripheral perfusion GI Other: Abdomen distended, obese, generalized tenderness to palpation across entire lower abdomen no guarding Skin Other: Warm dry no rash Neuro General: patient oriented x3, gait normal, no focal motor deficits and CN's II-XI intact bilaterally Psych Other: Cooperative Medications Administered Discontinued Medications Generic Name Dose Route Start Last Admin Trade Name Freq PRN Reason Stop Dose Admin Ceftriaxone Sodium 500 mg 01/02/25 04:44 01/02/25 04:53 Ceftriaxone Sodium 500 Mg Vial IVPUSH 01/02/25 04:45 500 mg ONCE ONE Administration Diatrizoate Meglum/Diatrizoate Sod 30 ml 01/02/25 02:47 01/02/25 02:47 Diatrizoate Meglumine, Sodium 30 Ml Solution PO 01/02/25 02:48 30 ml ONCE ONE Administration Diazepam 5 mg 01/02/25 01:00 01/02/25 01:08 Diazepam 10 Mg/2 Ml Cartridge IVPUSH 01/02/25 01:01 5 mg STAT STA Administration Diazepam 5 mg 01/02/25 02:26 01/02/25 02:30 Diazepam 10 Mg/2 Ml Cartridge IVPUSH 01/02/25 02:27 5 mg STAT STA Administration Sodium Chloride 1,000 mls @ 999 mls/hr 01/01/25 23:30 01/02/25 00:55 Ns IV 01/02/25 00:30 Infused .Q1H1M SRI Infusion Iohexol 85 ml 01/02/25 02:46 01/02/25 02:47 Iohexol 350 Mg/Ml 100 Ml Infus..Btl IV 01/02/25 02:47 85 ml ONCE ONE Administration Ketorolac Tromethamine 15 mg 01/01/25 23:30 01/01/25 23:54 Ketorolac Tromethamine 15 Mg/Ml Vial IVPUSH 01/01/25 23:31 15 mg ONCE ONE Administration Metronidazole 500 mg 01/02/25 04:44 01/02/25 04:53 Metronidazole 500 Mg Tablet PO 01/02/25 04:45 500 mg ONCE ONE Administration Morphine Sulfate 4 mg 01/02/25 00:33 01/02/25 00:56 Morphine Sulfate 4 Mg/Ml Cartridge IVPUSH 01/02/25 00:34 4 mg ONCE ONE Administration Protocol Ondansetron HCl 4 mg 01/01/25 23:30 01/01/25 23:54 Ondansetron Hcl 4 Mg/2 Ml Vial IVPUSH 01/01/25 23:31 4 mg ONCE ONE Administration Oxycodone HCl 5 mg 01/02/25 04:30 01/02/25 04:48 Oxycodone Hcl Immed Release 5 Mg Tablet PO 01/02/25 04:31 5 mg ONCE ONE Administration Simethicone 40 mg 01/02/25 02:05 01/02/25 02:36 Simethicone 40 Mg/0.6 Ml Oral.Susp PO 01/02/25 02:06 40 mg ONCE ONE Administration Medical Decision Making Medical Decision Making MDM Narrative: 34-year-old female with a history of obesity, diabetes, gastroparesis, PCOS, abnormal uterine bleeding who presents with abdominal pain since earlier this morning. Pain across lower abdomen described as cramping that fluctuates in intensity. Patient states her discomfort becomes severe at times, with the associated diaphoresis. The pain radiates to the low back. Associated abdominal bloating, nausea vomiting. The patient is chronically constipated, no diarrhea no fever. She states she did have a bowel movement today. No risk for STD, no vaginal discharge. No dysuria, hematuria or history of kidney stones. Problem: Obesity, diabetes, gastroparesis, PCOS History: Per patient I have considered the following differential diagnoses: Gastroparesis, bowel obstruction, UTI, renal colic, torsion, TOA Plan: I am most concerned for bowel obstruction, the patient has significant gastroparesis, she is having some degree of obstructive symptoms. Order a CT scan with the oral contrast if she can tolerate it. Giving morphine Zofran and fluid. Given lower abdominal discomfort, also thought about torsion, however her pain is nonfocal, the associated abdominal distention does not fit his clinical picture. She has no urinary symptoms to suggest renal colic or urinary tract infection. She has no new vaginal discharge to suggest other infectious etiology related to STDs. I have independently reviewed the following tests: Labs: Slight leukocytosis, not anemic, no electrolyte abnormality, not , urine not infected passing some hematuria I received a sign-out from my colleague CARON Worley CT scan of the abdomen/pelvis shows a left ovarian cyst suggesting recent rupture. Also, patient has IUD single position within the lower uterine segment extending towards the cervical os which may be contributing to patient's pelvic pain/cramping. I discussed several options with the patient. Including IUD removal, transvaginal/pelvic ultrasound/and follow-up with OBGYN. Patient states that she has a very sensitive vaginal canal and cervix. Patient states that she can not tolerate PAP smears, they have to be done under sedation. Patient states that the IUD that she has been placed, had to be ?surgically placed and under sedation. Self intravaginal swab is not an option for the patient either. Since doing a pelvic exam is not an option for this patient, and her white blood cell count is slightly elevated, PID can not be ruled out. Patient is not septic. However, he would be best to empirically treat the patient for PID Overall, patient decided that it would be best to follow-up with her OBGYN. Patient received 1 more dose of p.o. pain medication. Patient has multiple allergies including doxycycline, vancomycin, erythromycin, and declines to take any medications in the penicillin group due to worsening gastroparesis Patient was given p.o. ceftriaxone, metronidazole. We do not have p.o. clindamycin, patient will go to a 24 hour pharmacy to get it. Patient was given an extra dose of p.o. oxycodone. Patient feels well to be discharged home. And patient understands that she needs close follow-up with her OBGYN. Differential Diagnosis Differential Diagnoses: The differential diagnosis associated with the presentation includes (Gastroparesis, IUD misplacement) Admission/Observation Consideration of admission/observation: Escalation of care including admission/observation considered (Given patient's symptoms and level of pain, observation was considered) Lab Data MDM Lab Attestation statement: I reviewed the patient's lab results. 01/01/25 23:08 01/01/25 23:08 Labs: Lab Results 01/01/25 Range/Units 23:08 WBC 12.1 H (4.8-10.8) X10*3/uL RBC 4.59 (4.20-5.50) X10*6/uL Hgb 13.3 (12.0-16.0) g/dl Hct 38.7 (37.0-47.0) % MCV 84.3 (80.0-98.0) fL MCH 29.0 (27.0-33.0) pg MCHC 34.4 (31.0-35.0) g/dl RDW 13.2 (11.0-16.0) % Plt Count 400 (160-400) X10*3/uL MPV 9.4 (9.4-12.3) fL Immature Gran % (Auto) 0.4 (0.0-0.4) % Neut % (Auto) 60.3 (45-73) % Lymph % (Auto) 32.8 (20-40) % [place] % (Auto) 5.1 (2-11) % Eos % (Auto) 1.0 (0-4) % Baso % (Auto) 0.4 (0-2) % Lymph # (Auto) 4.0 (1.2-4.9) X10*3/uL [place] # (Auto) 0.6 (0.1-1.2) X10*3/uL Eos # (Auto) 0.1 (0.0-0.4) X10*3/uL Baso # (Auto) 0.1 (0.0-0.2) X10*3/uL Abs Immat Gran (auto) 0.05 H (0.00-0.03) X10*3/uL Absolute Neuts (auto) 7.3 (2.0-8.3) x10*3/uL Absolute Nucleated RBC 0.000 (0.0-0.012) X10*3/uL Nucleated RBC % (auto) 0.0 (0.0-0.2) /100WBC Sodium 141 (135-145) mmol/L Potassium 3.7 (3.3-5.1) mmol/L Chloride 108 (96-108) mmol/L Carbon Dioxide 22 (22-29) mmol/L Anion Gap 15 (12-20) BUN 12 (9-16) mg/dL Creatinine 0.80 (0.5-1.4) mg/dL Estim Creat Clear Calc 83.4 Estimated GFR > 60 Random Glucose 200 H (60-115) mg/dL Calcium 9.0 D (8.4-10.2) mg/dL Total Bilirubin 0.1 (0.0-1.0) mg/dL AST 16 (5-31) U/L ALT 33 H (0-31) U/L Alkaline Phosphatase 84 (39-117) U/L Total Protein 7.4 (6.5-8.0) g/dL Albumin 4.3 (3.5-5.0) g/dL Beta HCG, Quant < 2 mIU/mL Urine Color Yellow Urine Appearance Cloudy Urine pH 5.5 (5.0-9.0) Ur Specific [place] 1.025 (1.005-1.025) Urine Protein Negative (Neg-Trace) mg/dL Urine Glucose (UA) 500 H (Negative) mg/dL Urine Ketones Negative (Negative) mg/dL Urine Blood Moderate (2+) H (Negative) Urine Nitrite Negative (Negative) Ur Leukocyte Esterase Negative (Negative) Urine RBC 3-5 H (0-2) /HPF Urine WBC 0-5 (0-5) /HPF Urine WBC Clumps None seen Ur Squamous Epith Cells 6-10 (0-2) /HPF Urine Bacteria Trace (None Seen) Hyaline Casts 0-2 (0-2) /LPF Critical Care Time Critical Care Time Critical Care Time: Yes Total Critical Care Time: 60 Attestation: I have personally provided critical care time. Time includes review of lab data, radiology results, discussion with consultants, and monitoring for potential decompensation. Intervention performed as documented. Discharge Plan Discharge Clinical Impression: Pelvic pain, Malpositioned IUD, Ovarian cyst rupture Patient Disposition: Home, Self-Care Instructions: Ovarian Cyst (ED), Pelvic Pain in Women (ED) Additional Instructions: Please follow-up with your OBGYN and primary care physician tomorrow. If you have any worsening or new symptoms, please return to the emergency room or call 911 Prescriptions: New oxycodone 5 mg tablet 5 mg PO BID PRN (Reason: pain) Qty: 8 0RF Rx Instructions: Partial Fill upon patient request. clindamycin HCl [Cleocin HCl] 300 mg capsule 300 mg PO BID Qty: 14 0RF metronidazole 500 mg tablet 500 mg PO BID Qty: 14 0RF No Action bupropion HCl 150 mg tablet sustained-release 12 hr 150 mg PO DAILY (DME) FreeStyle Lite Strips Strip Qty: 100 0RF Rx Instructions: Test four times a day or as directed. (DME) blood-glucose meter [FreeStyle Lite Meter] Kit Qty: 1 0RF Rx Instructions: As Directed (DME) lancets [FreeStyle Lancets] 28 gauge misc Qty: 100 0RF Rx Instructions: Test four times a day or as directed. phentermine 30 mg capsule PO DAILY glipizide 5 mg tablet PO DAILY topiramate [Topamax] 100 mg tablet 100 mg PO DAILY levothyroxine 25 mcg tablet PO (DME) wedge pillow See Rx Instructions .Route .MEDSUPPLY Qty: 1 0RF Rx Instructions: As directed omeprazole 20 mg capsule,delayed release(DR/EC) 20 mg PO DAILY@0630 Qty: 90 1RF erythromycin 250 mg tablet 250 mg PO Q8H Qty: 90 0RF Rx Instructions: Take 250 mg 1 tablet 3 times a day with meals Interventions: ED Discharge Assessment Last Done: 01/02/25 05:18 Discharge Date/Time: 01/02/25 05:19 Print Language: Emirati
[2025-01-02] MEDS: Simethicone 40 MG/0.6 ML ORAL.SUSP PO (02:36)
[2025-01-02] MEDS: iohexoL 350 MG/ML 100 ML INFUS..BTL 85 ML IV (02:47)
[2025-01-02 04:00] VITALS: BP 140/92
[2025-01-02] MEDS: oxyCODONE HCl Immed Release 5 MG TABLET PO (04:48)
[2025-01-02 05:13] VITALS: BP 138/88; PULSE 95; RESP 16; TEMP 36.7; O2SAT 98
[2025-01-02 05:18] VITALS: BP 138/88; PULSE 95; RESP 16; TEMP 36.7; O2SAT 98
== END 2025-01-02 05:19 | disposition home or self-care (01) ==
PROVIDERS: Emergency Provider Emergency Medicine; PCP Internal Medicine
DX: R10.2 Pelvic and perineal pain (principal); N83.12 Corpus luteum cyst of left ovary; T83.32XA Displacement of intrauterine contraceptive device, initial encounter; Y76.8 Miscellaneous obstetric and gynecological devices associated with adverse incidents, not elsewhere classified; Y92.9 Unspecified place or not applicable; R11.0 Nausea; Z79.899 Other long term (current) drug therapy
CPT/HCPCS: 36415; 74018; 74177; 80053; 81001; 84702; 85025; 96361; 96374; 96375; 99284; 99285; J0696; J1885; J2270; J2405; J3360; Q9967

== ENCOUNTER → 2025-01-01 23:51 | Outpatient (BNV) | payer OTHER, SELFPAY | PROVIDERS: Emergency Provider Emergency Medicine; PCP Internal Medicine; Visit Provider Radiology Diagnostic Radiology | DX: R10.30 Lower abdominal pain, unspecified (principal) | CPT/HCPCS: 74018 ==

== ENCOUNTER → 2025-01-02 02:30 | Outpatient (BNV) | payer OTHER, SELFPAY | PROVIDERS: Emergency Provider Emergency Medicine; PCP Internal Medicine; Visit Provider Radiology Diagnostic Radiology | DX: N83.202 Unspecified ovarian cyst, left side (principal); Z97.5 Presence of (intrauterine) contraceptive device | CPT/HCPCS: 74177 ==

== ENCOUNTER 2025-02-24 06:44 | Day surgery (SDC) | payer OTHER, SELFPAY ==
--- OUTSIDE RECORDS SUMMARY | 2021-04-06 14:16 | XMS_ITS | Encounter Summary ---
Author Organization [facility] Address [address] [place] [phone] Phone Care Team Providers Care Corporate Development Associate Name Role Phone Janny Peoples OCCUPATIONAL THERAPY AIDES TEACHER Primary Care Provid er Encounter Details Date Type Department Care Team (Late st Contact Info) Description 04/06/2021 1:16 PM [facility] Hospital Encounter [facility] [address] [place] [phone] Mackenzie Oconnell FNP [address] [place] [phone] [email or web address] Social History Tobacco Use Types Packs/Day Years Used Date Smoking Tobacco: Never Smokeless Tobacco: Never Alcohol Use Standard Drinks/Week Comments Yes 0 (1 standard drink = 0.6 oz pur e alcohol) very rarely Education Answer Date Recorded Are you interested in more education? Not on jag e 09/08/2022 Are you concerned about learning? Not on file 09/08/2022 No 09/08/2022 No 09/08/2022 Digital Access Answer Date Recorded No 10/09/2022 No 10/09/2022 Reliable internet access at home? Not on file 10/09/2022 Device with a working camera? Not on file Comments No Sex and Gender Information Value Date Recorded Sex Assigned at Not on file Legal Sex Female 9:05 PM EDT Gender Identity Not on file Sexual Orientation Not on file documented as of this encounter Plan of [...] report originally createdby Farhad Chau. Mackenzie Oconnell TOOL ANALYST IMG XR LOWER EXTREMITY Malu l Result documented in this encounter Visit Diagnoses Not on filedocumented in this encounter Additional Health Concerns Infection Onset Date Last Indicated Resolved Time CoV-Risk 06/28/2024 06/28/2024 07/09/2024 1:24 AM EST documented as of this encounter Care Teams Corporate Development Associate Relationship Specialty Start Date End Date Janny Peoples NP [address] [place], [place] [phone] [email or web address] PCP - General Family Medicine 06/06/19 05/18/21 documented as of this encounter Additional Source Comments The information contained in this document represents components of the legal health record. It is not the complete legal health record.[facility]
--- OUTSIDE RECORDS SUMMARY | 2023-09-11 16:12 | XMS_ITS | Encounter Summary ---
Author Organization [facility] Address [address] [facility] [address] [place] [address] Phone Care Team Providers Care Pay Station Collector Name Role Phone Juan Chou DO Primary Care Provider [phone] Encounter Details Date Type Department Care Team (Late st Contact Info) Description 09/11/2023 4:12 PM EDT Hospital Encounter [facility] [address] [place] [id number] Shavon Levi, CYLINDER PRESS OPERATOR HELPER [address] [place] [address] [email or web address] Social History Tobacco Use Types Packs/Day Years [...] IMPRESSION: No displaced fracture. us Shavon Levi CYLINDER PRESS OPERATOR HELPER IMG XR PELVIS Final Resul t documented in this encounter Visit Diagnoses Not on filedocumented in this encounter Additional Health Concerns Infection Onset Date Last Indicated Resolved Time CoV-Risk 06/28/2024 06/28/2024 07/09/2024 1:24 AM EST documented as of this encounter Care Teams Pay Station Collector Relationship Specialty Start Date End Date Juan Chou DO [email or web address] PCP - General Internal Medicine 05/19/21 documented as of this encounter Additional Source Comments The information contained in this document represents components of the legal health record. It is not the complete legal health record.[facility]
--- OUTSIDE RECORDS SUMMARY | 2025-02-06 13:55 | XMS_ITS | Clinical Summary ---
Author Organization [facility] Address [address] [id number] Phone Care Team Providers Care Box Car Bracer Name Role Phone Juan Chou DO Primary Care Provider [phone] Allergies Active Allergy Reactions Criticality Noted Date Comments Doxycycline 07/11/2019 Flu Vaccine Ts 2013-15(36mos+) 07/11 Morphine 11/07/2022 Metoclopramide Hcl 02/02/2021 Shellfish Containing Products Swelling 2022 Vancomycin 07/11/2019 Medications JARDIANCE 10 mg tablet 1 Active buPROPion (WELLBUTRIN SR) 150 MG SR 12 hr tablet 1 Active dimenhyDRINATE (DRAMAMINE) 50 MG tablet Take 50 mg by mouth nightly at bedtime as needed. Active ondansetron (ZOFRAN-ODT) 4 MG disintegrating tablet 1 Active ibuprofen (ADVIL,MOTRIN) 600 MG tablet Take 1 tablet (600 mg total) by mouth 3 (three) times a day for 3 days. Then tid prn pain/inflamm ation 30 tablet 1 Active zolpidem (AMBIEN) 10 mg tablet Take 10 mg by mouth nightly at bedtime as needed for sleep. Active levothyroxine (SYNTHROID,LEVOTHRO ID) 25 MCG tablet 12.5 mcg. 3 Active topiramate (TOPAMAX) 100 MG tablet TAKE 1 TABLET BY MOUTH EVERY DAY FOR 30 DAYS. RTS 06/21/22 3 Active phentermine (ADIPEX-P) 37.5 mg tablet Take 37.5 mg by mouth daily before breakfast. Active cyclobenzaprine (FLEXERIL) 10 MG tablet Take 1 tablet (10 mg total) by mouth 3 (three) times a day as needed (muscle spasm/pain). 15 tablet 4 Active erythromycin base 250 MG tablet Take 1 tablet by mouth 3 (three) times a day with meals. Active glipiZIDE (GLUCOTROL) 5 MG tablet Take 1 tablet every day by oral route for 30 days. 5 Active Active Problems No known active problems Immunizations Immunization Administration Dates Next Due COVID-19 (Pre-03/05) Pfizer Vaccine, mRNA, PF Family History Medical History Relation Comments Breast cancer Maternal Aunt Relation Status Comments Maternal Aunt Social History Tobacco Use Types Packs/Day Years Used Date Smoking Tobacco: Never Smokeless Tobacco: Never Tobacco Cessation:Counseling Given: Not Answered Alcohol Use Standard Drinks/Week Comments Yes 0 [...] on file Sexual Orientation Not on file Last Filed Vital Signs Vital Sign Reading Time Taken Comments Blood Pressure 146/102 06/28/2024 1:55 PM EST Pulse 115 06/28/2024 1:55 PM EST Temperature 37.4 C (99.4 F) 06/28/2024 1:55 PM EST Respiratory Rate 16 06/28/2024 1:55 PM EST Oxygen Saturation 100% 06/28/2024 1:55 PM EST Inhaled Oxygen Concentration - - Weight 90.3 kg (199 lb) 07/14/2021 9:52 AM EST Height 144.8 cm (4' 9 ) 08/12/2020 6:25 PM EDT Body Mass Index 43.06 08/12/2020 6:25 PM EDT Plan of Treatment Health Maintenance Due Date Last Done Comments Adult Td,Tdap Booster 1989 DEPRESSION SCREENING 2001 HIV ONE-TIME SCREENING (18-6 5 YEARS) 2007 PAP SMEAR 2010 TSH LEVEL 11/16/2020 11/17/2019 INFLUENZA VACCINE (#1) 2024 COVID-19 VACCINE (2024-2 6 season) 2025 10/23/2020, 09/22/2020, 08/30/2020 HEPATITIS C SCREENING Completed 05/13/2020 SMOKING STATUS SCREENING (On ce After 26 Yrs) Completed 06/28/2024 HEPATITIS A VACCINES Aged Out No long er eligible based on patient's age to complete this topic HIB VACCINES Aged Out No longer eligi ble based on patient's age to complete this topic MENINGOCOCCAL VACCINES (ACWY) Aged Out No longer eligible based on patient's age to complete this topic MENINGOCOCCAL VACCINES (B) Aged Out N o longer eligible based on patient's age to complete this topic PNEUMOCOCCAL VACCINES (0-49 years) Aged Out No longer eligible b ased on patient's age to complete this topic Medical Devices Not on file Insurance HMO O O O O HMO Care Teams Box Car Bracer Relationship Specialty Start Date End Date Juan Chou DO [email or web address] PCP - General Internal Medicine 05/19/21 Additional Source Comments The information contained in this document represents components of the legal health record. It is not the complete legal health record.[facility]
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
--- OUTSIDE RECORDS SUMMARY | 2025-02-06 13:55 | XMS_ITS | Encounter Summary ---
Author Organization [facility] Address [address] [place] [address] Phone Care Team Providers Care Ab Initio Etl Developer Name Role Phone Janny Peoples NP Primary Care Provid er Keon Bates MD Unavailable [phone] Juan Chou DO Primary Care Provider [phone] Juan Chou DO Unavailable Encounter Details Date Type Department Care Team (Late st Contact Info) Description 11/03/2020 Ancillary Orders Virtual Department [address] [place], [place] [phone] Janny Peoples, RUBA [address] [place] [phone] [email or web address] Unspecified lump in the right breast, unspecified quadrant Social History Tobacco Use Types Packs/Day Years Used Date Smoking Tobacco: Never Smokeless Tobacco: Never Comments Unknown Sex and Gender Information Value Date Recorded Sex Assigned at Not on file Legal Sex Female 9:05 PM EDT Gender Identity Not on file Sexual Orientation Not on file documented as of this encounter Plan of Treatment Not on file documented as of this encounter Results * BI MAMMOGRAM DIAGNOSTIC WITH TOMOSYNTHESIS WITH CAD (BILATERAL) (11/19/2020 3:02 PM EDT) Anatomical Region Laterality Modality Breast Left, Breast Right, Breast Bilateral Bila teral Mammography 11/19/2020 3:02 PM EDT Impressions 11/19/2020 4:21 PM EDT RIGHT BREAST: 1. No mammographic or sonographic abnormality at the approximate location of the palpable concern. Clinical follow-up is recommended. Note that clinical concerns should be evaluated independent of imaging findings. 2. Small 0.6 cm focal asymmetry in the lateral breast at 2 to 3 cm from the nipple without sonographic correlate. Findings are probably benign. A six-month follow- up mammogram is recommended. Please also schedule an ultrasound slot in case it is necessary. LEFT BREAST: Negative, no evidence of malignancy. Age-appropriate follow-up is recommended. Bi-RADS: BI-RADS CATEGORY: 3 - Probably benign finding. Short interval follow up suggested. DENSITY: There are scattered fibroglandular densities. RIGHT RECOMMENDATION DUE DATE: 6 Months Recommendation: Right short interval follow-up LEFT RECOMMENDATION DUE DATE: Age 39 Recommendation: Left Mammography Screening Narrative 11/19/2020 4:21 PM EDT History: right upper quadrant near axilla palpable cm probable node, mobile, tender, multiple papules on breast with with erythema, no breast masses or drainage. Scant right breast drainage expresses. Note that the patient is unable to feel the palpable concern, therefore, no skin marker was placed. STUDIES: 1.Bilateral diagnostic mammography with tomosynthesis and CAD 2.Targeted ultrasound of the right breast TECHNIQUE: Bilateral full-field digital diagnostic mammography is obtained and read in conjunction with computer-aided detection. Tomosynthesis as well as 2-D C view imaging were obtained. COMPARISON: None. This is a baseline study. BREAST COMPOSITION: There are scattered areas of fibroglandular density RIGHT BREAST: There is an approximately 0.6 cm focal asymmetry in the lateral breast at 2 to 3 cm from the nipple (best seen on the tomosynthesis MLO and tomosynthesis spot CC ). No mammographic abnormality in the vicinity of the axillary region, which was the location of the palpable concern felt by the provider. No suspicious calcifications or other abnormalities are seen. Targeted ultrasound of the right breast was performed at the two locations: 1) approximate location of the palpable concern felt by the provider. No sonographic abnormalities identified during the survey of the upper outer quadrant towards the axilla. 2) targeted ultrasound was performed at the location of the mammographic finding about 9 o'clock position and lower outer quadrant. Survey was unable to find correlating sonographic finding. LEFT BREAST: No significant masses, suspicious calcifications or other abnormalities are seen. Janny Peoples CLOTHING PATTERNMAKER IMG MG EXAMS Malu l Result documented in this encounter Visit Diagnoses Diagnosis Unspecified lump in the right breast, unspecified quadrant Unspecified lump in the right breast, unspecified quadrant documented in this encounter Additional Health Concerns Infection Onset Date Last Indicated Resolved Time CoV-Risk 06/28/2024 06/28/2024 07/09/2024 1:24 AM EST documented as of this encounter Care Teams Ab Initio Etl Developer Relationship Specialty Start Date End Date Janny Peoples NP [address] [place] [address] [email or web address] PCP - General Family Medicine 06/06/19 05/18/21 Juan Chou DO [address] [place] [address] PCP - General Internal Medicine 05/19/21 Keon Bates MD [address] [place] [address] [email or web address] Insurance Assigned Provider 12/18/19 11/20/20 Juan Chou DO [address] [place] [address] Insurance Assigned Provider 05/21/21 03/19/22 documented as of this encounter Additional Source Comments The information contained in this document represents components of the legal health record. It is not the complete legal health record.[facility]
--- OUTSIDE RECORDS SUMMARY | 2025-02-06 13:55 | XMS_ITS | Encounter Summary ---
Author Organization [facility] Address [address] [place] [address] Phone Care Team Providers Care Public Relations Coordinator Name Role Phone Janny Peoples NP Primary Care Provid er Keon Bates MD Unavailable [phone] Juan Chou DO Primary Care Provider [phone] Juan Chou DO Unavailable Encounter Details Date Type Department Care Team (Late st Contact Info) Description 11/03/2020 Procedure Pass [address] [address] Social History Tobacco Use Types Packs/Day Years Used Date Smoking Tobacco: Never Smokeless Tobacco: Never Comments No Sex and Gender Information Value Date Recorded Sex Assigned at Not on file Legal Sex Female 9:05 PM EDT Gender Identity Not on file Sexual Orientation Not on file documented as of this encounter Plan of Treatment Not on file documented as of this encounter Visit Diagnoses Not on filedocumented in this encounter Additional Health Concerns Infection Onset Date Last Indicated Resolved Time CoV-Risk 06/28/2024 06/28/2024 07/09/2024 1:24 AM EST documented as of this encounter Care Teams Public Relations Coordinator Relationship Specialty Start Date End Date Janny Peoples NP [address] [place] [phone] [email or web address] PCP - General Family Medicine 06/06/19 05/18/21 Juan Chou DO [address] [place] [address] PCP - General Internal Medicine 05/19/21 Keon Bates MD [address] [place] [address] [email or web address] Insurance Assigned Provider 12/18/19 11/20/20 Juan Chou DO [address] [place] [address] [email or web address] Insurance Assigned Provider 05/21/21 03/19/22 documented as of this encounter Additional Source Comments The information contained in this document represents components of the legal health record. It is not the complete legal health record.[facility]
--- OUTSIDE RECORDS SUMMARY | 2025-02-06 13:55 | XMS_ITS | Patient Health Record ---
Author Organization [facility] Address [address] [place] [address] Care Team Providers Care Industrial Education Instructor Name Role Phone Janny Peoples Primary Care Provider Unavail able Faizan Sierra Jr Unavailable [phone] Allergies Allergen (clinical drug ingredient) Drug/Non Drug [...] Problem Status W/U Status Risk Notes Problem [id number] Gastroparesis (K31.84) Active confirmed Plan Of Treatment No Information Insurance Providers Payer Name Payer Address Payer Phone Subscriber Number Group Number Insured Name Patient Relationship to Insured Coverage Start Date Coverage End Date [employer] [address] [place] [phone] [id number] RIGO DIAZ Self - patient is the insured Medical (General) History Medical History History ICD Code PCOs - polycystic ovarian syndrome gastroparesis thyroid nodule - partial thyroid removed lyme disease osteoarthritis Surgical History Surgery Date(Month/Year) thyroidectomy - nodule and partial thyro id duct removal - left breast cholecystectomy
--- OUTSIDE RECORDS SUMMARY | 2025-02-06 13:55 | XMS_ITS | Encounter Summary ---
Author Organization [facility] Address [address] [address] Phone Care Team Providers Care Tractor Operator Helper Name Role Phone Janny Peoples NP Primary Care Provid er Keon Bates MD Unavailable [phone] Juan Chou DO Primary Care Provider [phone] Juan Chou DO Unavailable Encounter Details Date Type Department Care Team (Late st Contact Info) Description 11/03/2020 Ancillary Orders Virtual Department [address] [place], [place] [phone] Janny Peoples NP [address] [place] [phone] [email or web address] Social History Tobacco Use Types Packs/Day Years [...] documented as of this encounter Care Teams Tractor Operator Helper Relationship Specialty Start Date End Date Janny Peoples NP [address] [place] [phone] [email or web address] PCP - General Family Medicine 06/06/19 05/18/21 Juan Chou DO [address] [place] [phone] [email or web address] PCP - General Internal Medicine 05/19/21 Keon Bates MD [address] [place] [phone] Insurance Assigned Provider 12/18/19 11/20/20 Juan Chou DO [address] [place] [address] [email or web address] Insurance Assigned Provider 05/21/21 03/19/22 documented as of this encounter Additional Source Comments The information contained in this document represents components of the legal health record. It is not the complete legal health record.[facility]
--- OUTSIDE RECORDS SUMMARY | 2025-02-06 13:55 | XMS_ITS | Encounter Summary ---
Author Organization [facility] Address [address] [address] Phone Care Team Providers Care Director Data Processing Name Role Phone Janny Peoples NP Primary Care Provid er Keon Bates MD Unavailable [phone] Juan Chou DO Primary Care Provider [phone] Juan Chou DO Unavailable Encounter Details Date Type Department Care Team (Late st Contact Info) Description 11/03/2020 Ancillary Orders Virtual Department [address] [place], [place] [phone] Janny Peoples, RUBA [address] [place] [phone] [email or web address] Lump of breast, right Social History Tobacco Use Types Packs/Day Years [...] as of this encounter Results * BI US BREAST LIMITED (RIGHT) (11/19/2020 4:21 PM EDT) Anatomical Region Laterality Modality Breast Right, Breast Bilateral Right U ltrasound 11/19/2020 3:02 PM EDT Impressions 11/19/2020 4:21 [...] nipple (best seen on the tomosynthesis MLO 24/104 and tomosynthesis spot CC /). No mammographic abnormality in the vicinity of [...] suspicious calcifications or other abnormalities are seen. Procedure Note Margaret Mckeon MD - 11/19/2020 History: right upper quadrant near axilla palpable cm probable node,mobile, tender, multiple papules on breast with with erythema, no breastmasses or drainage. Scant right breast drainage expresses. Note that thepatient is unable to feel the palpable concern, therefore, no skin markerwas placed. STUDIES: 1.Bilateral diagnostic mammography with tomosynthesis and CAD 2.Targeted ultrasound of the right breast TECHNIQUE: Bilateral full-field digital diagnostic mammography is obtainedand read in conjunction with computer-aided detection. Tomosynthesis aswell as 2-D C view imaging were obtained. COMPARISON: None. This is a baseline study. BREAST COMPOSITION: There are scattered areas of fibroglandulardensity RIGHT BREAST: There is an approximately 0.6 cm focal asymmetry in thelateral breast at 2 to 3 cm from the nipple (best seen on thetomosynthesis MLO 24/104 and tomosynthesis spot CC ). No mammographicabnormality in the vicinity of the axillary region, which was the locationof the palpable concern felt by the provider. No suspicious calcificationsor other abnormalities are seen. Targeted ultrasound of the right breast was performed at the twolocations: 1) approximate location of the palpable concern felt by the provider. Nosonographic abnormalities identified during the survey of the upper outerquadrant towards the axilla. 2) targeted ultrasound was performed at the location of the mammographicfinding about 9 o'clock position and lower outer quadrant. Survey wasunable to find correlating sonographic finding. LEFT BREAST: No significant masses, suspicious calcifications or otherabnormalities are seen. IMPRESSION: RIGHT BREAST: 1. No mammographic or sonographic abnormality at the approximate locationof the palpable concern. Clinical follow-up is recommended. Note thatclinical concerns should be evaluated independent of imaging findings. 2. Small 0.6 cm focal asymmetry in the lateral breast at 2 to 3 cm fromthe nipple without sonographic correlate. Findings are probably benign. Asix-month follow- up mammogram is recommended. Please also schedule anultrasound slot in case it is necessary. LEFT BREAST: Negative, no evidence of malignancy. Hbd-lveakefoiewjjkavn-ez is recommended. Bi-RADS: BI-RADS CATEGORY: 3 - Probably benign finding. Short intervalfollow up suggested. DENSITY: There are scattered fibroglandular densities. RIGHT RECOMMENDATION DUE DATE: 6 Months Recommendation: Right short interval follow-up LEFT RECOMMENDATION DUE DATE: Age 39 Recommendation: Left Mammography Screening Janny Peoples CYBER TRANSPORT SYSTEMS SPECIALIST IMG US BREAST Malu l Result documented in this encounter Visit Diagnoses Diagnosis Lump of breast, right Lump of breast, right documented in this encounter Additional Health Concerns Infection Onset Date Last Indicated Resolved Time CoV-Risk 06/28/2024 06/28/2024 07/09/2024 1:24 AM EST documented as of this encounter Care Teams Director Data Processing Relationship Specialty Start Date End Date Janny Peoples NP [address] [place] [phone] [email or web address] PCP - General Family Medicine 06/06/19 05/18/21 Juan Chou DO [address] [place] [phone] [email or web address] PCP - General Internal Medicine 05/19/21 Keon Bates MD [address] [place] [phone] [email or web address] Insurance Assigned Provider 12/18/19 11/20/20 Juan Chou DO [address] [place] [phone] [email or web address] Insurance Assigned Provider 05/21/21 03/19/22 documented as of this encounter Additional Source Comments The information contained in this document represents components of the legal health record. It is not the complete legal health record.[facility]
--- OUTSIDE RECORDS SUMMARY | 2025-02-06 13:55 | XMS_ITS | Encounter Summary ---
Author Organization [facility] Address [address] [place] [address] Phone Care Team Providers Care Diamond Picker Name Role Phone Janny Peoples NP Primary Care Provid er Keon Bates MD Unavailable [phone] Juan Chou DO Primary Care Provider [phone] Juan Chou DO Unavailable Encounter Details Date Type Department Care Team (Late st Contact Info) Description 11/03/2020 Procedure Pass [address] [address] Social History Tobacco Use Types Packs/Day Years [...] documented as of this encounter Care Teams Diamond Picker Relationship Specialty Start Date End Date Janny Peoples NP [address] [place] [phone] [email or web address] PCP - General Family Medicine 06/06/19 05/18/21 Juan Chou DO [address] [place] [address] [email or web address] PCP - General Internal Medicine 05/19/21 Keon Bates MD [address] [place] [address] [email or web address] Insurance Assigned Provider 12/18/19 11/20/20 Juan Chou DO [address] [place] [address] [email or web address] Insurance Assigned Provider 05/21/21 03/19/22 documented as of this encounter Additional Source Comments The information contained in this document represents components of the legal health record. It is not the complete legal health record.[facility]
--- OUTSIDE RECORDS SUMMARY | 2025-02-06 13:56 | XMS_ITS | Encounter Summary ---
Author Organization [facility] Address [address] [place] [address] Phone Care Team Providers Care Machine Molder Squeeze Name Role Phone Juan Chou DO Primary Care Provider [phone] Juan Chou DO Unavailable Encounter Details Date Type Department Care Team (Late st Contact Info) Description 12/28/2021 Transcribe Orders Virtual Department [address] [place] [address] Jonna Roman PA 6 [facility] [place] [address] Social History Tobacco Use Types Packs/Day Years Used Date Smoking Tobacco: Never Smokeless Tobacco: Never Alcohol Use Standard Drinks/Week Comments Yes 0 (1 standard drink = 0.6 oz pur e alcohol) very rarely Comments No Sex and Gender Information Value [...] documented as of this encounter Care Teams Machine Molder Squeeze Relationship Specialty Start Date End Date Juan Chou DO PCP - General Internal Medicine 05/19/21 Juan Chou DO [address] [place] [address] [email or web address] Insurance Assigned Provider 05/21/21 03/19/22 documented as of this encounter Additional Source Comments The information contained in this document represents components of the legal health record. It is not the complete legal health record.[facility]
--- OUTSIDE RECORDS SUMMARY | 2025-02-06 13:56 | XMS_ITS | Encounter Summary ---
Author Organization [facility] Address [address] [place] [phone] Phone Care Team Providers Care Form Builder Helper Name Role Phone Janny Peoples NP Primary Care Provid er Juan Chou DO Primary Care Provider [phone] Juan Chou DO Unavailable Encounter Details Date Type Department Care Team (Late st Contact Info) Description 02/14/2021 Procedure Pass [facility], [address] [address] Social History Tobacco Use Types Packs/Day Years [...] documented as of this encounter Care Teams Form Builder Helper Relationship Specialty Start Date End Date Janny Peoples NP [address] [place] [address] [phone] [email or web address] PCP - General Family Medicine 06/06/19 05/18/21 Juan Chou DO [address] [place] [id number] PCP - General Internal Medicine 05/19/21 Juan Chou DO [address] [place] [address] [email or web address] Insurance Assigned Provider 05/21/21 03/19/22 documented as of this encounter Additional Source Comments The information contained in this document represents components of the legal health record. It is not the complete legal health record.[facility]
--- OUTSIDE RECORDS SUMMARY | 2025-02-06 13:56 | XMS_ITS | Encounter Summary ---
Author Organization [facility] Address [address] [place] [address] Phone Care Team Providers Care Furnishings Conservator Name Role Phone Juan Chou DO Primary Care Provider [phone] Juan Chou DO Unavailable Encounter Details Date Type Department Care Team (Late st Contact Info) Description 12/28/2021 Transcribe Orders Virtual Department [address] [place] [address] Jonna Roman PA 6 [facility] [place] [address] Social History Tobacco Use Types Packs/Day Years [...] documented as of this encounter Care Teams Furnishings Conservator Relationship Specialty Start Date End Date Juan Chou DO PCP - General Internal Medicine 05/19/21 Juan Chou DO [address] [place] [address] [email or web address] Insurance Assigned Provider 05/21/21 03/19/22 documented as of this encounter Additional Source Comments The information contained in this document represents components of the legal health record. It is not the complete legal health record.[facility]
--- OUTSIDE RECORDS SUMMARY | 2025-02-06 13:56 | XMS_ITS | Encounter Summary ---
Author Organization [facility] Address [address] [place] [address] Phone Care Team Providers Care Geospatial Scientist Name Role Phone Janny Peoples COMPUTER SCIENCE PROFESSOR Primary Care Provid er José Antonio, Juan Guzman DO Primary Care Provider [phone] Juan Chou DO Unavailable Encounter Details Date Type Department Care Team (Late st Contact Info) Description 04/18/2021 Transcribe Orders Virtual Department [address] [place] [address] Janny Peoples NP [address] [place] [address] [place] [phone] [email or web address] Social History Tobacco Use Types Packs/Day Years [...] documented as of this encounter Care Teams Geospatial Scientist Relationship Specialty Start Date End Date Janny Peoples, RUBA [address] [place] [address] [email or web address] PCP - General Family Medicine 06/06/19 05/18/21 Juan Chou DO [address] [place] [address] [email or web address] PCP - General Internal Medicine 05/19/21 Juan Chou DO [address] [place] [address] Insurance Assigned Provider 05/21/21 03/19/22 documented as of this encounter Additional Source Comments The information contained in this document represents components of the legal health record. It is not the complete legal health record.[facility]
[2025-02-19 08:03] VITALS: BMI 36.6
[2025-02-19 08:49] VITALS: BMI 36.8
--- NOTE | 2025-02-19 13:03 | HO.ANESPROP2 ---
HPI - Anesthesia Eval Consult details Narrative: 35yo F for Upper Endoscopy with Balloon Dilitation s/p same 03/2024 with GA-ETT 7 (during [facility] admit with gasteroparesis/intractable N/V) PMF Active Problems Active Problems: All Active Problems Dysphagia (Acute) COVID-19 (Acute) Restricted diet (Acute) Hair loss (Acute) Obesity (BMI 35.0-39.9 without comorbidity) (Chronic) Gastroparesis (Chronic) Cushingoid facies (Acute) Gastroparesis (Acute) Left ankle sprain (Acute) Low back pain (Acute) Abnormal uterine bleeding (AUB) (Acute) Well woman exam (Acute) Left knee pain (Acute) UTI (urinary tract infection) (Acute) Past Medical History Medical History Encounter for intrauterine device placement New onset type 2 diabetes mellitus Cholecystectomy planned Pre-diabetes Lyme disease Osteoarthritis PCOS (polycystic ovarian syndrome) Gastroparesis Family History Family History Maternal Aunt Breast cancer Family history of problems with anesthesia: No Surgical History Surgical History H/O dilation and curettage Hx of colonoscopy History of esophagogastroduodenoscopy (EGD) (03/2024) History of cholecystectomy H/O partial thyroidectomy History of Problems with Anesthesia: Yes (PONV) Social History Social History Household Members: Friend(s) Housing: House Housing Other:: stairs Do you presently have visiting nurse or other home services: No Alcohol intake: never Patient Tobacco Use Status: Never used Tobacco Second Hand Smoke Exposure: No service: No Current occupational status: employed Meds Allergies Allergy/AdvReac Type Severity Reaction Status Date / Time morphine Allergy Severe Headache Verified 02/19/25 08:47 vancomycin (VANCOMYCIN) Allergy Severe ANAPHYLAXIS Verified 02/19/25 08:48 doxycycline (DOXYCYCLINE) Allergy Intermediate SWELLING Verified 02/19/25 08:48 erythromycin base Allergy Intermediate Itching Verified 02/19/25 08:47 from IV form influenza virus vaccine, Allergy Mild Swelling Verified 02/19/25 08:48 specific (FLU VACCINE) metoclopramide (From Reglan) Allergy Unknown Verified 02/19/25 08:47 shellfish Allergy Mild Swelling Uncoded 02/19/25 08:47 Home Medications ?Medication ?Instructions ?Recorded ?Confirmed ?Last Taken ?Type bupropion HCl 150 mg tablet,12 hr 150 mg PO DAILY 03/06/21 02/19/25 03/30/24 History sustained-release topiramate 100 mg tablet (Topamax) 100 mg PO DAILY 07/30/23 02/19/25 03/30/24 History levothyroxine 25 mcg tablet 12.5 mcg PO DAILY 04/15/24 02/19/25 Unknown History glipizide 5 mg tablet 5 mg PO DAILY 06/16/24 02/19/25 Unknown History norethindrone acetate 5 mg tablet 5 mg PO DAILY 02/19/25 02/19/25 Unknown History phentermine 37.5 mg capsule 37.5 mg PO DAILY 02/19/25 02/19/25 Unknown History Exam Height,Weight and Vital Signs: Height 4 ft 9 in Weight 77.111 kg Pertinent Lab Results Pertinent Lab Results: Laboratory Tests 01/01/25 23:08 WBC 12.1 H Hgb 13.3 Hct 38.7 Plt Count 400 Sodium 141 Potassium 3.7 Chloride 108 Carbon Dioxide 22 BUN 12 Creatinine 0.80 Assessment and Plan Assessment Anesthesia Assessment: Chart Reviewed Final Anesthetic Review Family History of Problems with Anesthesia: No History of Problems with Anesthesia: Yes (PONV)
[2025-02-24 06:57] VITALS: BP 176/113; PULSE 102; RESP 18; TEMP 36.4; O2SAT 96
[2025-02-24 07:11] LABS: UPreg QC Valid YES
[2025-02-24 07:14] LABS: Glucose, Whole Blood 143 mg/dL (60-115)
[2025-02-24 07:22] VITALS: BP 146/96
[2025-02-24] MEDS: Lactated Ringers 1,000 ML 100 ML IVCONT (07:23)
--- NOTE | 2025-02-24 07:26 | HO.ANESPROP2 ---
[facility] Active Problems Active Problems: All Active Problems (Updated 01/03/25 @ 00:00 by Tulio Doshi) Dysphagia (Acute) COVID-19 (Acute) Restricted diet (Acute) Hair loss (Acute) Obesity (BMI 35.0-39.9 without comorbidity) (Chronic) Gastroparesis (Chronic) Cushingoid facies (Acute) Gastroparesis (Acute) Left ankle sprain (Acute) Low back pain (Acute) Abnormal uterine bleeding (AUB) (Acute) Well woman exam (Acute) Left knee pain (Acute) UTI (urinary tract infection) (Acute) Past Medical History Medical History Encounter for intrauterine device placement New onset type 2 diabetes mellitus Cholecystectomy planned Pre-diabetes Lyme disease Osteoarthritis PCOS (polycystic ovarian syndrome) Gastroparesis Family History Family History Maternal Aunt Breast cancer Family history of problems with anesthesia: No Surgical History Surgical History H/O dilation and curettage Hx of colonoscopy History of esophagogastroduodenoscopy (EGD) (03/2024) History of cholecystectomy H/O partial thyroidectomy History of Problems with Anesthesia: Yes (PONV) Social History Social History Household Members: Friend(s) Housing: House Housing Other:: stairs Do you presently have visiting nurse or other home services: No Unable to assess alcohol history related to: Unknown Alcohol intake: never Patient Tobacco Use Status: Never used Tobacco Second Hand Smoke Exposure: No Use of substances other than those prescribed or required for medical reasons: No Have you been hit, kicked, punched, or otherwise hurt by someone within the past year? If so, by whom?: No Are you DNR?: No Advance Directives: No Advance Directives Information Provided: Yes Advance Directives on File: No Patient : No FDLMP: 02/15/2025 : No Poor oral hygiene: No service: No Current occupational status: employed Meds Allergies Allergy/AdvReac Type Severity Reaction Status Date / Time morphine Allergy Severe Headache Verified 02/19/25 08:47 vancomycin (VANCOMYCIN) Allergy Severe ANAPHYLAXIS Verified 02/19/25 08:48 doxycycline (DOXYCYCLINE) Allergy Intermediate SWELLING Verified 02/19/25 08:48 erythromycin base Allergy Intermediate Itching Verified 02/19/25 08:47 from IV form influenza virus vaccine, Allergy Mild Swelling Verified 02/19/25 08:48 specific (FLU VACCINE) metoclopramide (From Reglan) Allergy Unknown Verified 02/19/25 08:47 shellfish Allergy Mild Swelling Uncoded 02/19/25 08:47 Active Medications: Current Medications Lactated Ringer's (Lr) 1,000 mls @ 100 mls/hr IVCONT .Q10H SRI Last Admin: 02/24/25 07:23 Dose: 100 mls/hr Home Medications ?Medication ?Instructions ?Recorded ?Confirmed ?Last Taken ?Type bupropion HCl 150 mg tablet,12 hr 150 mg PO DAILY 03/06/21 02/19/25 03/30/24 History sustained-release topiramate 100 mg tablet (Topamax) 100 mg PO DAILY 07/30/23 02/19/25 03/30/24 History levothyroxine 25 mcg tablet 12.5 mcg PO DAILY 04/15/24 02/19/25 Unknown History glipizide 5 mg tablet 5 mg PO DAILY 06/16/24 02/19/25 Unknown History norethindrone acetate 5 mg tablet 5 mg PO DAILY 02/19/25 02/19/25 Unknown History phentermine 37.5 mg capsule 37.5 mg PO DAILY 02/19/25 02/19/25 Unknown History Exam Exam Date and Time: 02/24/26 Height,Weight and Vital Signs: Height 4 ft 9 in Weight 77.111 kg Last Vital Signs Temp 97.6 F 02/24/25 06:57 Pulse 102 H 02/24/25 06:57 Resp 18 02/24/25 06:57 BP 146/96 H 02/24/25 07:22 Pulse Ox 96 02/24/25 06:57 O2 Del Method Room Air 02/24/25 06:57 Pertinent Lab Results Pertinent Lab Results: Laboratory Tests 02/24/25 02/24/25 07:00 07:09 POC Glucose 143 H Urine Test NEGATIVE Airway Mallampati Class: III TM Dist: >3cm Neck ROM: Full Heart: rrr Lungs: ctab vesicular Assessment and Plan Assessment Anesthesia Assessment: Anesthesia Plan Discussed and Smoking Cess. Discussed Final Anesthetic Review Family History of Problems with Anesthesia: No History of Problems with Anesthesia: Yes (PONV) ASA Class: II Final Preanesthetic Review: No Changes in Pt Med Stat, Meds/Allgs Chart Reviewed, Consent Obtained/Reviewed and Anes Risks/Benef Reviewed Patient Risk: Low Procedure Risk: Low Anesthetic Plan Anesthetic Plan: MAC: Disposition: Standard PACU
--- NOTE | 2025-02-24 07:48 | MHC.SHP ---
Pre-Procedural Eval Section A - 24 Hr Update-Section A only Date of Service: 02/24/25 Section B - Complete if H&P > 30 days Chief Complaint: Dysphagia, unspecified Details of Present Illness: Encounter for intrauterine device placement New onset type 2 diabetes mellitus Cholecystectomy planned Pre-diabetes Lyme disease Osteoarthritis PCOS (polycystic ovarian syndrome) Gastroparesis Surgical History (Updated 12/31/24 @ 12:51 by Shamir Harper [facility] H/O dilation and curettage Hx of colonoscopy History of esophagogastroduodenoscopy (EGD) History of cholecystectomy H/O partial thyroidectomy Present Medications: see Short Stay Collaborative assessment Allergies: Allergies Allergy/AdvReac Type Severity Reaction Status Date / Time morphine Allergy Severe Headache Verified 02/19/25 08:47 vancomycin (VANCOMYCIN) Allergy Severe ANAPHYLAXIS Verified 02/19/25 08:48 doxycycline (DOXYCYCLINE) Allergy Intermediate SWELLING Verified 02/19/25 08:48 erythromycin base Allergy Intermediate Itching Verified 02/19/25 08:47 from IV form influenza virus vaccine, Allergy Mild Swelling Verified 02/19/25 08:48 specific (FLU VACCINE) metoclopramide (From Reglan) Allergy Unknown Verified 02/19/25 08:47 shellfish Allergy Mild Swelling Uncoded 02/19/25 08:47 Review of Systems Review of Systems Comment: Ten point ROS negative Exam Exam Comment: Gen appear: No acute distress HEENT: no icterus Chest: No overt resp distress Abd: soft, nontender, nondistended Psych: Stable affect, answering questions appropriately Neuro: A/Ox3 noted to move all extremities spontaneously Ext: no peripheral edema Plan Diagnosis/Plan: Unchanged I have reviewed the history and physical and performed a pertinent physical examination on my patient. No changes have occurred unless specified. Time Spent With Patient Time: Total time managing care of this patient today ____ minutes.
[2025-02-24 09:06] VITALS: BP 132/90; PULSE 104; RESP 10; TEMP 36.6; O2SAT 96
--- NOTE | 2025-02-24 09:07 | P.OP_ITS ---
Operative Note Operative Note Date of Service: 02/24/25 Narrative: Procedure: Esophagogastroduodenoscopy Endoscopist: Abby Luna MD Indication: Dysphagia, gastroparesis Anesthesia Provider: Dr Alexi Darnell Anesthesia Type: MAC ?? EGD Procedure:?? The procedure, indications, preparation and potential complications were reviewed with the patient, who indicated understanding and gave written informed consent to proceed. A physical exam was performed. The endoscope was introduced through the mouth, and advanced to the second part of duodenum. The mucosa was carefully examined on slow withdrawal of the endoscope. The patient tolerated the procedure well. There were no immediate complications.? ? EGD Findings:? * Esophagus:? Normal mucosa noted in the entire esophagus. The Z line was at 33 cm and displays past small hiatal hernia with the diaphragmatic pinch at 35 cm. Middle and lower esophagus forceps biopsies were obtained to rule out eosinophilic esophagitis. * Stomach:? Normal mucosa was noted in the stomach. Retroflexion was was found in the cardia that showed Hill grade III hiatal hernia. The pylorus appeared narrow. Through the scope pyloric balloon was passed through the biopsy channel and advanced to the pyloric inlet. It was incrementally dilated from 15-18 mm, with resistance felt, however no tear was noted at the end of dilation. * Duodenum:? Normal mucosa was noted in the whole of the examined duodenum. Additional intervention: Soft tip Savary wire was introduced through the biopsy channel of the gastroscope and advanced to the antrum. The gastroscope was then backed out. Savary Radha bougie was advanced over the guidewire and the esophagus was dilated to 18mm without any resistance felt. On relook, no heme or tear was noted. ? EGD Impressions:? * Normal esophagus (biopsy, dilation) * Normal stomach (dilation) * Normal duodenum ?? Recommendations:?? * Follow biopsy results. Our office will call or send a letter with results within 7-10 days. * No obvious esophageal narrowing was seen or felt during the endoscopy today to correspond with the barium swallow findings. * Avoid NSAIDs. * Continue omeprazole 20 mg once daily Above has been reviewed with the patient. Relevant educational hand outs were provided at discharge. ?
[2025-02-24 09:21] VITALS: BP 140/97; PULSE 92; RESP 17; O2SAT 100
[2025-02-24 09:36] VITALS: BP 149/98; PULSE 95; RESP 17; TEMP 36.6; O2SAT 100
== END 2025-02-24 10:06 | disposition home or self-care (01) ==
PROVIDERS: Nurse Practitioner; PCP Internal Medicine; Visit Provider Internal Medicine
PROC: (CPT 43239; principal; 2025-02-24 08:20)
DX: R13.10 Dysphagia, unspecified (principal); K31.84 Gastroparesis; E11.43 Type 2 diabetes mellitus with diabetic autonomic (poly)neuropathy; K21.9 Gastro-esophageal reflux disease without esophagitis; K44.9 Diaphragmatic hernia without obstruction or gangrene
CPT/HCPCS: 43239; 43248; 43249; 81025; 82947; 88305; C1726; C1769; J2003; J2405; J2704

== ENCOUNTER → 2025-02-24 06:44 | Outpatient (BNV) | payer OTHER, SELFPAY | PROVIDERS: PCP Internal Medicine; Visit Provider Internal Medicine | DX: R13.10 Dysphagia, unspecified (principal); K31.84 Gastroparesis | CPT/HCPCS: 43245; 43248 ==

== ENCOUNTER 2025-03-25 13:16 | Outpatient (AMB) | payer OTHER, SELFPAY ==
--- OUTSIDE RECORDS SUMMARY | 2021-04-06 13:16 | XMS_ITS | Encounter Summary ---
Author Organization [facility] Address [address] [facility] [address] [place] [phone] Phone Care Team Providers Care Public Relations Coordinator Name Role Phone Janny Peoples INSTRUMENT MECHANICS SUPERVISOR Primary Care Provid er Encounter Details Date Type Department Care Team (Late st Contact Info) Description 04/06/2021 1:16 PM EST Hospital Encounter [facility] [address] [place] [phone] Mackenzie Oconnell FNP [address] [place] [phone] [email or web address] Social History Tobacco Use Types Packs/Day Years Used Date Smoking Tobacco: Never Smokeless Tobacco: Never Alcohol Use Standard Drinks/Week Comments Yes 0 (1 standard drink = 0.6 oz pur e alcohol) very rarely Education Answer Date Recorded Are you interested in more education? Not on jag e 09/08/2022 Are you concerned about learning? Not on file 09/08/2022 No 09/08/2022 No 09/08/2022 Food Answer Date Recorded Within the past 6 months we worried whether our food would run out before we got money to buy more. Never True 02/14/2025 Within the past 6 months the food we bought just didn't last and we didn't have enough money to get more. Never True Residential Stability Answer Date Recor ded What is your housing situation today? I have dimple sing 02/14/2025 How many times have you move d in the past 12 months? Zero (I did not move) 02/14/2025 Paying for Meds Answer Date Recorded Do you have trouble paying for medicines? No 02/14/2025 Paying Utility Bills Answer Date Record ed Do you have trouble paying your heating or elect ricity bill? No 02/14/2025 Transportation Answer Date Recorded Has the lack of transportati on kept you from medical appointments or from getting medications? No 02/14/2025 Digital Access Answer Date Recorded No 02/14/2025 Yes 02/14/2025 Do you have reliable internet access at home? Ye s 02/14/2025 Do you have a device (e.g., phone, tablet, computer) with a working camera? Yes 02/14/2025 Intimate Partner Violence Answer Date R ecorded Are you denied basic needs s uch as food, clothing, or medical care? No 02/14/2025 In the past 12 months have y ou been in a relationship with a person who hurts, threatens, or tries to control you? No 02/14/2025 Are you denied basic needs s uch as food, clothing, or medical care? No 02/14/2025 In the past 12 months have y ou been in a relationship with a person who hurts, threatens, or tries to control you? No 02/14/2025 Comments No Sex and Gender Information Value Date Recorded Sex Assigned at Not on file Legal Sex Female 9:05 PM EDT Gender Identity Not on file Sexual Orientation Not on file documented as of this encounter Functional Status * Calculated C-SSRS Risk Score (Lifetime/Recent) Answer Date of Assessment Author No Risk Indicated 02/14/2025 5:18 PM EDT Hoa Ba RN * [place] Suicide Severity Rating Scale (Screener/Recent Self-Report) Question Answer Date of Assessment Author 1. Wish to be (Past 1 Month) No 02/14/2025 5:18 PM EDT Hoa Ba RN 2. Non-Specific Active Suici mehreen Thoughts (Past 1 Month) No 02/14/2025 5:18 PM EDT Hoa Ba RN 6. Suicidal Behavior (Lifetime) No 5:18 PM EDT Hoa Ba RN documented as of this encounter Plan of Treatment Not on file documented as of this encounter Procedures Procedure Name Priority Date/Time Associated Diagnosis Comments XR KNEE 4 OR MORE VIEWS (LEFT) Urgent/patient waiting 04/06/2021 1:29 PM EST Internal derangement of knee, unspecified laterality documented in this encounter Results * XR KNEE 4 OR MORE VIEWS (LEFT) (04/06/2021 1:29 PM EST) Anatomical Region Laterality Modality Knee Left Computed Radiogr aphy 04/06/2021 1:31 PM EST Impressions 04/06/2021 1:51 PM EST No fracture or dislocation. ATTESTATION: Alla Carrion as teaching physician, have reviewed the images for this case and if necessary edited the report originally created by Farhad Chau. Narrative 04/06/2021 1:51 PM EST XR KNEE 4 OR MORE VIEWS (LEFT) COMPARISON: None. FINDINGS: Left Knee: No fracture. Normal alignment. Normal joint spaces. Quadricep tendon enthesophyte. No effusion. Procedure Note Alla Hurst MD - 04/06/2021 XR KNEE 4 OR MORE VIEWS (LEFT) COMPARISON: None. FINDINGS: Left Knee: No fracture. Normal alignment. Normal joint spaces. Quadriceptendon enthesophyte. No effusion. IMPRESSION: No fracture or dislocation. ATTESTATION: Alla Carrion as teaching physician, have reviewed theimages for this case and if necessary edited the report originally createdby Farhad Chau. Mackenzie Oconnell CHRO IMG XR LOWER EXTREMITY Malu l Result documented in this encounter Visit Diagnoses Not on filedocumented in this encounter Additional Health Concerns Infection Onset Date Last Indicated Resolved Time CoV-Risk 06/28/2024 06/28/2024 07/09/2024 1:24 AM EST documented as of this encounter Care Teams Public Relations Coordinator Relationship Specialty Start Date End Date Janny Peoples NP [address] [place] [address] [email or web address] PCP - General Family Medicine 06/06/19 05/18/21 documented as of this encounter Additional Source Comments The information contained in this document represents components of the legal health record. It is not the complete legal health record.[facility]
--- OUTSIDE RECORDS SUMMARY | 2023-09-11 15:12 | XMS_ITS | Encounter Summary ---
Author Organization [facility] Address [address] [facility] [address] [place] [address] Phone Care Team Providers Care Kettle Firer Name Role Phone Juan Chou Primary Care Provider [phone] Encounter Details Date Type Department Care Team (Late st Contact Info) Description 09/11/2023 4:12 PM EDT Hospital Encounter [facility] [address] [place] [address] [id number] Shavon Levi, DRY CLEANING ATTENDANT [address] [place] [address] [email or web address] Social History Tobacco Use Types Packs/Day Years [...] 5:18 PM EDT Hoa Ba RN * [employer] Suicide Severity Rating Scale (Screener/Recent Self-Report) Question [...] Name Priority Date/Time Associated Diagnosis Comments XR HIP 2 VW RIGHT PLUS PELVIS Urgent/patient waiting 09/11/2023 4:20 PM EDT Right hip pain documented in this encounter Results * XR HIP 2 VW RIGHT PLUS PELVIS (09/11/2023 4:20 PM EDT) Anatomical Region Laterality Modality Hip Right Computed Radiogr aphy 09/11/2023 4:45 PM EDT Impressions 09/11/2023 4:47 PM EDT No displaced fracture. Narrative 09/11/2023 4:47 PM EDT XR HIP 2 VW RIGHT PLUS PELVIS Referring clinician's provided indication for this examination in Epic: Pain; S/P Fall; ? fx COMPARISON: None available. FINDINGS: Pelvis: No displaced fracture. Intact sacroiliac joints and pubic symphysis. Frontal evaluation of the left hip demonstrates normal joint space. Right hip: No displaced fracture. Normal alignment. Normal joint space. A linear lucency seen in the cortex of proximal/mid femoral shaft, likely a vascular channel. Procedure Note David Geller MD, MBBS - 09/11/2023 XR HIP 2 VW RIGHT PLUS PELVIS Referring clinician's provided indication for this examination in Epic:Pain; S/P Fall; ? fx COMPARISON: None available. FINDINGS: Pelvis: No displaced fracture. Intact sacroiliac joints and pubicsymphysis. Frontal evaluation of the left hip demonstrates normal jointspace. Right hip: No displaced fracture. Normal alignment. Normal joint space. Alinear lucency seen in the cortex of proximal/mid femoral shaft, likely avascular channel. IMPRESSION: No displaced fracture. us Shavon Levi DRY CLEANING ATTENDANT IMG XR PELVIS Final Resul t documented in this encounter Visit Diagnoses Not on filedocumented in this encounter Additional Health Concerns Infection Onset Date Last Indicated Resolved Time CoV-Risk 06/28/2024 06/28/2024 07/09/2024 1:24 AM EST documented as of this encounter Care Teams Kettle Firer Relationship Specialty Start Date End Date Juan Chou DO [email or web address] PCP - General Internal Medicine 05/19/21 02/13/25 documented as of this encounter Additional Source Comments The information contained in this document represents components of the legal health record. It is not the complete legal health record.[facility]
--- NOTE | 2025-03-25 13:16 | MHC.OFFVIS ---
Intake Visit Reasons: egd Intake Note: Nila presents as a telehealth to go over results to the egd. CC: States that she is having isues eating - only bale to take 3 bites. Constipation and diarrhea. Las week was diarrhea and this week is constipation. Needle Loom Weaver Required: No Allergies morphine Allergy (Severe, Verified 03/27/25 14:54) Headache vancomycin (VANCOMYCIN) Allergy (Severe, Verified 03/27/25 14:54) ANAPHYLAXIS doxycycline (DOXYCYCLINE) Allergy (Intermediate, Verified 03/27/25 14:54) SWELLING erythromycin base Allergy (Intermediate, Verified 03/27/25 14:54) Itching from IV form influenza virus vaccine, specific (FLU VACCINE) Allergy (Mild, Verified 03/27/25 14:54) Swelling metoclopramide (From Reglan) Allergy (Verified 03/27/25 14:54) Unknown shellfish Allergy (Mild, Uncoded 03/27/25 14:54) Swelling HPI Comments Details: 34 year female who carries a dx of idiopathic gastroparesis diagnosed in 2017 who is here post hospitalisation follow up. Pt has been to [facility] multiple times in the last few months. Was seen by me 03/21/[address] Mejia 03/31. 04/02: Had EGD with pyloric balloon dilation and 100u botox inj. Now reports doing much better with acid reflux as well as with tolerating liquids. Still struggling with solids. Tries to eat at least one solid food per day but has bloating and nausea which starts within 10-15 mins of consuming it. Maintaining caloric intake with protein shakes. However feels nutritional content is poor as has started to lose hair. Meds: Taking prilosec 20 Erythromycin 250 TID -- no drug holiday so far. Pt also recently diagnosed with T2DM in the hospital - currently not on any meds at all. Discontinued metformin due to side effects. Checking BG fastin-140. Post prandial: 138-172. Will be seeing Endocrine (Dr Annie Hussein at [facility]) next month. 06/16/24: Doing better - has been able to keep food down. Able to eat better. Has better control of DM which has been helping. Also working on weight, has lost almost 8# since she was last seen. Taking erythromycin 250 mg TID. Has incorporated more smoothies in her diet, in addition, strains them, to get out of excessive fiber. Is working on seeing a poleyard supervisor towards the end of this month. 09/15/24: Here for telehealth visit. Had an episode of acid reflux in her sleep. For the past week has also been having sensation of a lump in her throat and had a choking episode for which her room mate had to give her a heimlich maneuver. Has dinner 4 h before goes to bed. Takes glipizide 5 mg po once daily. erythromycin 250 TID - drug holiday S/Sun 12/31/24: Here for telehealth. Reports more nausea with IUD placement 3 weeks ago. Outside of this, symptoms are controlled. Diabetes control is much better now. Last random blood sugar less than 180. Continues with omeprazole and erythromycin 5 days a week. Barium swallow reviewed, cricopharyngeal narrowing versus indentation from previous thyroidectomy scar. Patient has intermittent choking episodes. Would like to pursue EGD with dilation. 02/24/25: Normal esophagus (biopsy, dilation) Normal stomach (dilation) Normal duodenum Path: A. Esophagus, lower, biopsy: Squamous epithelium within normal limits; no inflammation seen. B. Esophagus, middle, biopsy: Squamous epithelium within normal limits; no inflammation seen 03/25/25: Here for a follow up as a televisit. Reports since tapering off erythromycin has been noticing increase in sensation of nausea and fullness. This only improved for a few days after pyloric dilation. Of note- meds reviewed and pt also on phentermine. Reviewed that this is an appetite suppressant so likely contributing to her GI sx. Can discuss dose adjustment with her PCP. Lack of erythromycin also made her constipation worse. Swallowing is ok though does not notice much difference post dilation. [facility], [facility] Medical History Encounter for intrauterine device placement New onset type 2 diabetes mellitus Cholecystectomy planned Pre-diabetes Lyme disease Osteoarthritis PCOS (polycystic ovarian syndrome) Gastroparesis Surgical History H/O dilation and curettage Hx of colonoscopy History of esophagogastroduodenoscopy (EGD) (03/2024) History of cholecystectomy H/O partial thyroidectomy Family History Maternal Aunt Breast cancer Social History Household Members: Friend(s) Housing: House Housing Other:: stairs Do you presently have visiting nurse or other home services: No Alcohol intake: never Patient Tobacco Use Status: Never used Tobacco Second Hand Smoke Exposure: No service: No Current occupational status: employed Female Reproductive History Menstrual Age of Menarche: 15 Review of Systems Const All systems reviewed & are unremarkable except as noted in HPI and below Physical Exam Exam Exam: Video visit: No acute distress No icterus noted No facial asymmetry Speaking in full sentences Telehealth Telehealth Telehealth Platform: [employer] Location of provider rendering services: practice address Location of patient: address on file Telehealth method: video Patient verbally consented to treatment: Yes Patient verbally consented to billing insurance company: Yes Patient informed of any privacy concerns related to visit: Yes Minutes spent on Phone/Video with Pt.: 13 Assessment & Plan Assessment & Plan (1) Gastroparesis: Code(s): K31.84 - Gastroparesis Category: Medical (2) Nausea: Code(s): R11.0 - Nausea (3) Early satiety: Code(s): R68.81 - Early satiety (4) Chronic idiopathic constipation: Code(s): K59.04 - Chronic idiopathic constipation (5) Obesity (BMI 35.0-39.9 without comorbidity): Code(s): E66.9 - Obesity, unspecified Category: Medical (6) Diabetes mellitus with gastroparesis: Code(s): E11.43 - Type 2 diabetes mellitus with diabetic autonomic (poly)neuropathy Category: Medical (7) Gastroesophageal reflux disease: Code(s): K21.9 - Gastro-esophageal reflux disease without esophagitis Plan 1. Nausea 2. Early satiety 3. Postprandial fullness and bloating 4. Idiopathic gastroparesis 5. Chronic idiopathic constipation Reviewed with the patient that given recent addition of phentermine to her medication as part of weight loss management, difficult to determine if the current symptoms are due to gastroparesis flare-up versus a desired effect of the appetite suppressant. Would recommend discussing dose adjustment or PCP. Since she also has worsening of constipation, can potentially add prucalopride/Motegrity to help with both the idiopathic constipation as well as delayed gastric emptying. Plan: - phentermine dose adjustment as per PCP - add prucalopride 1 mg daily. Can increase to 2 mg if no significant side effects - BG control <180 mg/dl post prandial - Small frequent meals - Low fat low fiber diet. - Small particle diet. Liquid diet during a flare. - of note, given response to pyloric dilation, albeit short lived, if has limited benefit with pharmacotherapy, can consider further investigation with pyloric FLIP for indication/benefit of G-POEM. Follow-up 4 months Medications: New prucalopride (Motegrity) 1 mg PO DAILY 90 tabs 0RF Coding Level of Care Code Tele Est Pt Level 4 (92264) Diagnoses Gastroparesis K31.84 Nausea R11.0 Early satiety R68.81 Chronic idiopathic constipation K59.04 Obesity (BMI 35.0-39.9 without comorbidity) E66.9 Diabetes mellitus with gastroparesis E11.43 Gastroesophageal reflux disease K21.9
--- OUTSIDE RECORDS SUMMARY | 2025-03-25 16:02 | XMS_ITS | Encounter Summary ---
Author Organization [facility] Address [address] [place] [address] Phone Care Team Providers Care Manager Real Estate Name Role Phone Janny Peoples NP Primary Care Provid er Bigda, Juan A DO Primary Care Provider [phone] Bigda, Juan A DO Unavailable Bigda, Juan A DO Primary Care Provider [phone] Encounter Details Date Type Department Care Team (Late st Contact Info) Description 04/18/2021 Transcribe Orders Virtual Department [address] [place], [place] [id number] Janny Peoples, RUBA [address] [place] [phone] [email or web address] Social History Tobacco Use Types Packs/Day Years [...] documented as of this encounter Care Teams Manager Real Estate Relationship Specialty Start Date End Date Janny Peoples NP [address] [place] [address] [email or web address] PCP - General Family Medicine 06/06/19 05/18/21 Juan Chou DO [address] [place] [address] PCP - General Internal Medicine 05/19/21 02/13/25 Juan Chou DO [address] [place] [address] PCP - General Internal Medicine 02/14/25 Juan Chou DO [address] [place] [address] Insurance Assigned Provider 05/21/21 03/19/22 documented as of this encounter Additional Source Comments The information contained in this document represents components of the legal health record. It is not the complete legal health record.[facility]
--- OUTSIDE RECORDS SUMMARY | 2025-03-25 16:02 | XMS_ITS | Encounter Summary ---
Author Organization [facility] Address [address] [address] Phone Care Team Providers Care Emblem Fuser Tender Name Role Phone Janny Peoples NP Primary Care Provid er Keon Bates MD Unavailable [phone] BigJuan cote DO Primary Care Provider [phone] BigJuan cote DO Unavailable BigJuan cote DO Primary Care Provider [phone] Encounter Details Date Type Department Care Team (Late st Contact Info) Description 11/03/2020 Ancillary Orders Virtual Department [address] [place] [address] Janny Peoples, RUBA [address] [place] [address] [place] [phone] [email or web address] Social History Tobacco Use Types Packs/Day Years [...] documented as of this encounter Care Teams Emblem Fuser Tender Relationship Specialty Start Date End Date Janny Peoples NP [address] [place] [address] [email or web address] PCP - General Family Medicine 06/06/19 05/18/21 Juan Chou DO [address] [place] [address] [email or web address] PCP - General Internal Medicine 05/19/21 02/13/25 Juan Chou DO [address] [place] [phone] [email or web address] PCP - General Internal Medicine 02/14/25 Keon Bates MD [address] [place] [phone] Insurance Assigned Provider 12/18/19 11/20/20 Juan Chou DO [address] [place] [phone] Insurance Assigned Provider 05/21/21 03/19/22 documented as of this encounter Additional Source Comments The information contained in this document represents components of the legal health record. It is not the complete legal health record.[facility]
--- OUTSIDE RECORDS SUMMARY | 2025-03-25 16:02 | XMS_ITS | Encounter Summary ---
Author Organization [facility] Address [address] [place] [address] Phone Care Team Providers Care Planetarium Sky Show Technician Name Role Phone Janny Peoples NP Primary Care Provid er Keon Bates MD Unavailable [phone] BigJuan cote DO Primary Care Provider [phone] BigdaJuan DO Unavailable Bigkera, Juan Guzman DO Primary Care Provider [phone] Encounter Details Date Type Department Care Team (Late st Contact Info) Description 11/03/2020 Ancillary Orders Virtual Department [address] [place] [address] Janny Peoples, RUBA [address] [place] [phone] [email or web address] Unspecified lump in the right breast, [...] nipple (best seen on the tomosynthesis MLO 24/ and tomosynthesis spot CC ). No mammographic [...] suspicious calcifications or other abnormalities are seen. us Janny Peoples NP IMG MG EXAMS Malu l Result documented in this encounter Visit Diagnoses Diagnosis Unspecified lump in the right breast, unspecified quadrant Unspecified lump in the right breast, unspecified quadrant documented in this encounter Additional Health Concerns Infection Onset Date Last Indicated Resolved Time CoV-Risk 06/28/2024 06/28/2024 07/09/2024 1:24 AM EST documented as of this encounter Care Teams Planetarium Sky Show Technician Relationship Specialty Start Date End Date Janny Peoples NP [address] [place] [address] [email or web address] PCP - General Family Medicine 06/06/19 05/18/21 Juan Chou DO [address] [place] [address] [email or web address] PCP - General Internal Medicine 05/19/21 02/13/25 Juan Chou DO [address] [place] [address] [email or web address] PCP - General Internal Medicine 02/14/25 Keon Bates MD [address] [place] [phone] [email or web address] Insurance Assigned Provider 12/18/19 11/20/20 Juan Chou DO [address] [place] [address] [email or web address] Insurance Assigned Provider 05/21/21 03/19/22 documented as of this encounter Additional Source Comments The information contained in this document represents components of the legal health record. It is not the complete legal health record.[facility]
--- OUTSIDE RECORDS SUMMARY | 2025-03-25 16:02 | XMS_ITS | Encounter Summary ---
Author Organization [facility] Address [address] [address] Phone Care Team Providers Care Dental Resident Name Role Phone José Antonio Juan Guzman DO Primary Care Provider [phone] Juan Chou DO Unavailable Juan Chou DO Primary Care Provider [phone] Encounter Details Date Type Department Care Team (Late st Contact Info) Description 12/28/2021 Transcribe Orders Virtual Department [address] [place] [address] Jonna Roman PA [address] [facility] [place] [address] Social History Tobacco Use Types Packs/Day Years [...] documented as of this encounter Care Teams Dental Resident Relationship Specialty Start Date End Date Juan Chou DO PCP - General Internal Medicine 05/19/21 02/13/25 Juan Chou DO [address] [place] [address] [email or web address] PCP - General Internal Medicine 02/14/25 Juan Chou DO [address] [place] [address] Insurance Assigned Provider 05/21/21 03/19/22 documented as of this encounter Additional Source Comments The information contained in this document represents components of the legal health record. It is not the complete legal health record.[facility]
--- OUTSIDE RECORDS SUMMARY | 2025-03-25 16:02 | XMS_ITS | Encounter Summary ---
Author Organization [facility] Address [address] [place], [place] [phone] Phone Care Team Providers Care Core Drier Name Role Phone Janny Peoples NP Primary Care Provid er Bigda, Juan A DO Primary Care Provider [phone] Bigda, Juan A DO Unavailable Bigda, Juan A DO Primary Care Provider [phone] Encounter Details Date Type Department Care Team (Late st Contact Info) Description 02/14/2021 Procedure Pass [address] [address] Social History Tobacco Use Types Packs/Day Years [...] documented as of this encounter Care Teams Core Drier Relationship Specialty Start Date End Date Janny Peoples NP [address] [place] [address] [phone] [email or web address] PCP - General Family Medicine 06/06/19 05/18/21 Juan Chou DO [address] [place] [address] [email or web address] PCP - General Internal Medicine 05/19/21 02/13/25 Juan Chou DO [address] [place] [address] [email or web address] PCP - General Internal Medicine 02/14/25 Juan Chou DO [address] [place] [address] Insurance Assigned Provider 05/21/21 03/19/22 documented as of this encounter Additional Source Comments The information contained in this document represents components of the legal health record. It is not the complete legal health record.[facility]
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
--- OUTSIDE RECORDS SUMMARY | 2025-03-25 16:02 | XMS_ITS | Encounter Summary ---
Author Organization [facility] Address [address] [address] Phone Care Team Providers Care Insurance Office Manager Name Role Phone José Antonio Juan Guzman DO Primary Care Provider [phone] Juan Chou DO Unavailable Juan Chou DO Primary Care Provider [phone] Encounter Details Date Type Department Care Team (Late st Contact Info) Description 12/28/2021 Transcribe Orders Virtual Department [address] [place] [address] Jonna Roman PA 6 [facility] [place] [address] Social History Tobacco Use Types Packs/Day Years [...] documented as of this encounter Care Teams Insurance Office Manager Relationship Specialty Start Date End Date Juan Chou DO PCP - General Internal Medicine 05/19/21 02/13/25 Juan Chou DO [address] [place] [address] PCP - General Internal Medicine 02/14/25 Juan Chou DO [address] [place] [address] Insurance Assigned Provider 05/21/21 03/19/22 documented as of this encounter Additional Source Comments The information contained in this document represents components of the legal health record. It is not the complete legal health record.[facility]
--- OUTSIDE RECORDS SUMMARY | 2025-03-25 16:02 | XMS_ITS | Encounter Summary ---
Author Organization [facility] Address [address] [facility] [address] [place] [address] Phone Care Team Providers Care Auto Mechanic Name Role Phone Juan Chou Primary Care Provider [phone] Encounter Details Date Type Department Care Team ([facility] st Contact Info) Description 02/14/2025 Procedure Pass [facility], Ct Scan - [address] [address] Social History Tobacco Use Types Packs/Day Years [...] 5:18 PM EDT Hoa Ba RN * [place] Suicide Severity Rating Scale (Screener/Recent Self-Report) Question [...] Diagnoses Not on filedocumented in this encounter Care Teams Auto Mechanic Relationship Specialty Start Date End Date Juan Chou DO [address] [place] [phone] [email or web address] PCP - General Internal Medicine 02/14/25 documented as of this encounter Additional Source Comments The information contained in this document represents components of the legal health record. It is not the complete legal health record.[facility]
--- OUTSIDE RECORDS SUMMARY | 2025-03-25 16:02 | XMS_ITS | Encounter Summary ---
Author Organization [facility] Address [address] [address] Phone Care Team Providers Care Base Manager Name Role Phone Janny Peoples NP Primary Care Provid er Keon Bates MD Unavailable [phone] BigJuan cote DO Primary Care Provider [phone] BigdaJuan DO Unavailable Bigkera, Juan Guzman DO Primary Care Provider [phone] Encounter Details Date Type Department Care Team (Late st Contact Info) Description 11/03/2020 Ancillary Orders Virtual Department [address] [place], [place] [phone] Janny Peoples, RUBA [address] [place] [address] [email or web address] Lump of breast, right Social [...] nipple (best seen on the tomosynthesis MLO / and tomosynthesis spot CC ). No mammographic [...] the nipple (best seen on thetomosynthesis MLO / and tomosynthesis spot CC ). No mammographicabnormality [...] LEFT BREAST: Negative, no evidence of malignancy. Quy-bookdlyissunaqlzh-xo is recommended. Bi-RADS: BI-RADS CATEGORY: 3 - Probably benign finding. Short intervalfollow up suggested. DENSITY: There are scattered fibroglandular densities. RIGHT RECOMMENDATION DUE DATE: 6 Months Recommendation: Right short interval follow-up LEFT RECOMMENDATION DUE DATE: Age 39 Recommendation: Left Mammography Screening Janny Peoples PRECISION JIG GRINDER IMG US BREAST Malu l Result documented in this encounter Visit Diagnoses Diagnosis Lump of breast, right Lump of breast, right documented in this encounter Additional Health Concerns Infection Onset Date Last Indicated Resolved Time CoV-Risk 06/28/2024 06/28/2024 07/09/2024 1:24 AM EST documented as of this encounter Care Teams Base Manager Relationship Specialty Start Date End Date Janny Peoples NP [address] [place] [phone] [email or web address] PCP - General Family Medicine 06/06/19 05/18/21 Juan Chou DO [address] [place] [address] [email or web address] PCP - General Internal Medicine 05/19/21 02/13/25 Juan Chou DO [address] [place] [address] [email or web address] PCP - General Internal Medicine 02/14/25 Keon Bates MD [address] [place] [address] [email or web address] Insurance Assigned Provider 12/18/19 11/20/20 Juan Chou DO [address] [place] [address] [email or web address] Insurance Assigned Provider 05/21/21 03/19/22 documented as of this encounter Additional Source Comments The information contained in this document represents components of the legal health record. It is not the complete legal health record.[facility]
--- OUTSIDE RECORDS SUMMARY | 2025-03-25 16:02 | XMS_ITS | Encounter Summary ---
Author Organization [facility] Address [address] [facility] [address] [place] [address] Phone Care Team Providers Care Supervisor Cured Meats Name Role Phone Juan Chou Primary Care Provider [phone] Encounter Details Date Type Department Care Team ([facility] st Contact Info) Description 02/14/2025 Procedure Pass [facility], Ct Scan - [address] [address] Social History Tobacco Use Types Packs/Day Years [...] 5:18 PM EDT Hoa Ba RN * [place] Suicide Severity Rating Scale (Screener/Recent Self-Report) Question [...] on filedocumented in this encounter Care Teams Supervisor Cured Meats Relationship Specialty Start Date End Date Juan Chou DO [address] [place] [address] [email or web address] PCP - General Internal Medicine 02/14/25 documented as of this encounter Additional Source Comments The information contained in this document represents components of the legal health record. It is not the complete legal health record.[facility]
--- OUTSIDE RECORDS SUMMARY | 2025-03-25 16:03 | XMS_ITS | Encounter Summary ---
Author Organization [facility] Address [address] [place] [address] Phone Care Team Providers Care Hr Payroll Coordinator Name Role Phone Janny Peoples NP Primary Care Provid er Keon Bates MD Unavailable [phone] Juan Chou DO Primary Care Provider [phone] Juan Chou DO Unavailable Juan Chou DO Primary Care Provider [phone] Encounter Details Date Type Department Care Team (Late st Contact Info) Description 11/03/2020 Procedure Pass [address] [address] Social History Tobacco Use Types Packs/Day Years [...] documented as of this encounter Care Teams Hr Payroll Coordinator Relationship Specialty Start Date End Date Janny Peoples NP [address] [place] [phone] [email or web address] PCP - General Family Medicine 06/06/19 05/18/21 Juan Chou DO [address] [place] [address] PCP - General Internal Medicine 05/19/21 02/13/25 Juan Chou DO [address] [place] [address] PCP - General Internal Medicine 02/14/25 Keon Bates MD [address] [place] [address] Insurance Assigned Provider 12/18/19 11/20/20 Juan Chou DO [address] [place] [address] Insurance Assigned Provider 05/21/21 03/19/22 documented as of this encounter Additional Source Comments The information contained in this document represents components of the legal health record. It is not the complete legal health record.[facility]
--- OUTSIDE RECORDS SUMMARY | 2025-03-25 16:03 | XMS_ITS | Patient Health Record ---
Author Organization [facility] Address [address] [place] [address] Care Team Providers Care Principal Cloud Architect Name Role Phone Janny Peoples Primary Care [...] minutes before morning meal Orally Once a day; Duration: 30 day(s) 05/19/2020 Active Immunizations Vaccine Route [...] Problem Status W/U Status Risk Notes Problem Gastroparesis (689424072) Gastroparesis (K31.84) Active confirmed Plan Of Treatment No Information Insurance Providers Payer Name Payer Address Payer Phone Subscriber Number Group Number Insured Name Patient Relationship to Insured Coverage Start Date Coverage End Date [employer] [address] [place] [phone] [id number] RIGO DIAZ Self - patient is the insured Medical (General) History Medical History History ICD Code PCOs - polycystic ovarian syndrome gastroparesis thyroid nodule - partial thyroid removed lyme disease osteoarthritis Surgical History Surgery Date(Month/Year) thyroidectomy - nodule and partial thyro id duct removal - left breast cholecystectomy
--- OUTSIDE RECORDS SUMMARY | 2025-03-25 16:03 | XMS_ITS | Encounter Summary ---
Author Organization [facility] Address [address] [place] [address] Phone Care Team Providers Care Stull Installer Name Role Phone Janny Peoples NP Primary Care Provid er Keon Bates MD Unavailable [phone] Juan Chou DO Primary Care Provider [phone] Juan Chou DO Unavailable Juan Chou DO Primary Care Provider [phone] Encounter Details Date Type Department Care Team (Late st Contact Info) Description 11/03/2020 Procedure Pass [facility], [address] [address] Social History Tobacco Use Types Packs/Day Years [...] documented as of this encounter Care Teams Stull Installer Relationship Specialty Start Date End Date Janny Peoples NP [address] [place] [phone] [email or web address] PCP - General Family Medicine 06/06/19 05/18/21 Juan Chou DO [address] [place] [address] PCP - General Internal Medicine 05/19/21 02/13/25 Juan Chou DO [address] [place] [address] PCP - General Internal Medicine 02/14/25 Keon Bates MD [address] [place] [address] Insurance Assigned Provider 12/18/19 11/20/20 Juan Chou DO [address] [place] [address] Insurance Assigned Provider 05/21/21 03/19/22 documented as of this encounter Additional Source Comments The information contained in this document represents components of the legal health record. It is not the complete legal health record.[facility]
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
--- OUTSIDE RECORDS SUMMARY | 2025-03-25 16:03 | XMS_ITS | Data Portability ---
Author Organization [facility], Telehealth Patient Home Address [address] [place] [address] Assessment Encounter Date Assessment Date Assessment LastModified by Organization Details LastModified Time 04/16/2024 04/16/2024 Patient agreed and verbally consents to this audio and video Telehealth appt via a secure platform [email or web address] Not available 04/16/2024 15:39:54 10/24/2024 10/24/2024 Patient presented for medication refill. Patient tolerating medication well at current dose without adverse effects. Refilled as below. Discussed plan with patient, who expressed understanding . Follow up as noted below. [email or web address] Not available 10/24/2024 10:59:01 Plan of Treatment Reminders Order Date Submit Date Provider Last Modified By Organization Details Last Modified Time Details Appointments FOLLOW UP 15 2024 04:15P CARON FUENTES Not available Not available Not available Lab TSH + free T4, serum 2024 025 [facility], [address] [place] [address], [id number], 03/18/2025 17:15:33 thyroid peroxidas e (tpo) Ab, serum 2024 025 [facility], [address] [place] [address], [id number], 03/18/2025 17:15:33 T3, total, serum 2024 025 [facility], [address] [place] [address], [address], 03/18/2025 17:15:33 tsi (thyroid- stimulati ng immunoglo bulin), serum 2024 [facility], [address] [place] [address], [address], 03/18/2025 17:15:33 hemoglobi n A1c, QN, blood 2024 [facility], [address] [place] [address], [address], 03/18/2025 17:15:33 CMP, serum or plasma 2024 [facility], [address] [place] [address], [address], 03/18/2025 17:15:33 lipid panel, serum 2024 [facility], [address] [place] [address], [address], 03/18/2025 17:15:33 vitamin D, 25-hydrox y, total, serum 2024 [facility], [address] [place] [address], [address], 03/18/2025 17:15:33 vitamin B12 + folate, serum or blood 2024 [facility], [address] [place] [address], [address], 03/18/2025 17:15:33 iron + TIBC + ferritin, serum 2024 [facility], [address] [place] [address], [address], 03/18/2025 17:15:33 Referral dermatolo gist referral 2024 [facility], [address] [place], [address], 03/23/2025 13:52:18 rheumatol ogist referral 2024 [email or web address], [address] [facility], [facility] [address], [place], [address], 10/27/2024 09:44:50 gynecolog ist referral - complex medical patient with PCOS, recent pap smear showing atypical cells, needs [facility] from this reason, is unable to do a biopsy without anesthesi a due to severe pain, needs to be put in under SHE CANNOT DO A CONSCIOUS BIOPSY DUE TO THE SEVERE PAIN AND BLEEDING SHE GETS she was told she would be taken on as patient four referrals have been sent and confirmed with your office also has a question of endometro sis 2023 024 [email or web address] Macias MD, [address] [place], [address], 04/18/2024 08:15:10 endocrino logy referral 2023 024 rick Hussein, [address] [place], [address], 04/18/2024 10:20:53 gynecolog ist referral 2023 024 [email or web address] Flori Macias MD, [address] [place], [address], 11/27/2023 09:16:23 Procedures None recorded. Surgeries None recorded. Imaging MRI, thoracic spine, w/o contrast 2024 025 [email or web address] [facility] [place], [facility] [address], [address], 03/17/2025 09:53:59 MRI, lumbar spine, w/o contrast 2024 025 [email or web address] 10 [facility] [place], [address], [address], 03/17/2025 09:54:10 MRI, cervical spine, w/o contrast 2024 025 [email or web address] 10 [facility] [place], [address], [facility] [address], [place], [address], 03/17/2025 09:53:45 XR, lumbosacr al spine, 2 or 3 view 2024 [email or web address] [place] [address] Central Scheduling, [address] [place], [address], 11/07/2024 09:57:36 XR, hip + pelvis, bilateral , 3 or 4 view 2024 [email or web address] [place] [address] (Imaging), [address] [place], [address], 11/07/2024 09:57:36 MAMMO, diagnosti c, digital, bilateral 2024 [email or web address] [place] [address] Central Scheduling, [address] [place], [address], 11/07/2024 09:57:36 Medication Orders cephalexi n 500 mg capsule 2024 [facility], [address] [place], [address], 03/18/2025 16:45:09 bupropion HCl XL 300 mg 24 hr tablet, extended release 2024 [facility], [address] [place], [address], 03/18/2025 16:51:46 topiramat e 25 mg tablet 2024 [facility], [address] [place], [address], 03/18/2025 16:51:45 acetamino phen 500 mg tablet 2024 [facility] [address] [place], [address], 03/11/2025 14:17:47 phentermi ne 37.5 mg capsule 2024 025 [facility] [address] [place], [address], 03/11/2025 14:18:26 minoxidil 2 % topical solution 2024 025 [facility] [address] [place], [address], 10/24/2024 11:02:34 phentermi ne 37.5 mg capsule 2024 025 [facility] [address] [place], [address], 10/24/2024 11:08:13 phentermi ne 15 mg capsule 2023 025 [facility] [address] [place], [address], 06/20/2024 11:27:00 glipizide 5 mg tablet 2023 024 [facility], [address] [place] [address], [address], 04/16/2024 15:56:57 Patient TargetsNo targets recorded. Patient InstructionsNo instructions recorded. Reason for Referral Review Scheduling Coordinator Referral for Po lycystic ovary syndrome needs PCP referral Referring Physician: Delgado Roman, Internal Medicine, Encounter Date: 11/23/2023 Review Scheduling Coordinator Referral for At ypical squamous cells of undetermined significance on cervical Papanicolaou smear fu referral complex medical patient with PCOS, recent pap smear showing atypical cells, needs [facility] from this reason, is unable [...] specific referral for diabetes Referring Physician: Delgado Roman, Internal Medicine, Encounter Date: 04/16/2024 Slab Off Mill Tender Referral for Disorder of connective tissue ? CT d/o like EDS vs CRPS, pt has sig medical problems with hypermobility Referring Physician: Delgado Roman, Internal Medicine, Encounter Date: 10/24/2024 Molder Setter Referral for P ustular psoriasis ?pustular psoriasis Referring Physician: Delgado Roman, Internal Medicine, Encounter Date: 03/18/2025 Results Created Date Observation Date Name Description Value Unit Range Abnormal Flag Note LastModifiedBy Organization Detail LastModifiedTime 11/05/19 24 10/23/2023 US, pelvi s No observ ation record ed. [email or web address] [facility] (Medical Records) [address] [place], [address], 11/05/2023 14:54:50 12/12/19 24 12/12/2023 CT, abdom en + pelvi s, w/o contr ast No observ ation record ed. [email or web address] [facility] (Medical Records) [address] [place], [address], 12/12/2023 08:50:42 03/02/20 24 03/02/2024 XR, lumba r spine , 2 view No observ ation record ed. [email or web address] [facility] (Medical Records) [address] [place], [address], 03/03/2024 09:26:27 03/02/20 24 03/02/2024 XR, wrist + hand No observ ation record ed. [email or web address] [facility] (Medical Records) [address] [place], [address], 03/03/2024 09:26:53 03/02/20 24 03/02/2024 XR, ankle No observ ation record ed. [email or web address] [facility] (Medical Records) [address] [place], [address], 03/03/2024 09:27:12 03/02/20 24 03/02/2024 XR, knee No observ ation record ed. [email or web address] [facility] (Medical Records) [address] [place], [address], 03/03/2024 09:27:30 03/08/20 24 03/08/2024 CT, abdom en + pelvi s, w/o contr ast No observ ation record ed. [facility] (Medical Records) [address] [place], [address], 03/09/2024 10:29:31 03/20/20 24 03/20/2024 CT, abdom en + pelvi s, w/o contr ast No observ ation record ed. [facility] (Medical Records) [address] [place], [address], 03/20/2024 12:14:42 05/29/19 25 05/29/2024 gastr ic empty ing study (PROC ) No observ ation record ed. [facility] (Medical Records) [address] [place], [address], 05/29/2024 19:29:28 09/11/19 25 09/10/2024 CT, neck, soft tissu e, w/o contr ast No observ ation record ed. [facility] (Medical Records) [address] [place], [address], 09/11/2024 12:01:03 12/27/19 25 12/26/2024 booker jon ow study No observ ation record ed. [email or web address] [facility] (Medical Records) [address] [place], [address], 12/26/2024 10:58:42 01/03/20 25 01/01/2025 XR, kidne y + urete r + bladd er No observ ation record ed. [facility] (Medical Records) [address] [place], [address], 01/02/2025 08:28:40 01/03/20 25 01/01/2025 XR, kidne y + urete r + bladd er No observ ation record ed. [facility] (Medical Records) [address] [place], [address], 01/02/2025 08:28:29 01/03/20 25 01/02/2025 XR, kidne y + urete r + bladd er No observ ation record ed. [facility] (Medical Records) [address] [place], [address], 01/02/2025 08:28:14 Result Notes None recorded. Problems Name Problem SNOMED Code Status Onset Date Resolution Date Notes Provider Name and Address Organization Details Recorded Time Type 2 diabetes mellitus 52544531 Active 2020 [address]ALE [address] [place] [address], [address], [facility] 14:16:53 Polycysti c ovary syndrome 856505034 Active 2020 CARON HALE [address] [place] [address], [address], [facility] 14:22:59 Gastropar esis due to diabetes mellitus 263824259 Active 2020 CARON HALE [address] [place] [address], [address], [facility] 5 16:58:34 Essential hypertens ion 99971404 Active 2020 CARON HALE [address] [place] [address], [address], [facility] 14:23:37 Hyperlipi demia 71716862 Active 2020 CARON HALE [address] [place] [address], [address], [facility] 1 14:23:49 Lyme disease 93852460 Active 2020 CARON HALE [address] [place] [address], [address], [facility] 14:38:28 Osteoarth ritis 648342832 Active 2020 CARON HALE [address] [place] [address], [address], [facility] 14:38:41 Thyroidec usman Active 2021 CARON HALE [address] [place] [address], [address], [facility] 2 16:25:21 Insomnia 960934836 Active 2021 CARON HALE [address] [place] [address], [address], [facility] 2 12:29:19 Obesity 595809244 Active 2021 CARON HALE [address] [place] [address], [address], [facility] 2 12:30:19 Uvulitis 743184979 Active 2021 CARON HALE [address] [place] [address], [address], [facility] 2 14:30:20 Cough 96170677 Active 2021 CARON HALE [address] [place] [address], [address], [facility] 2 14:31:29 Mammograp hy abnormal 205263846 Active 2021 CARON HALE [address] [place] [address], [address], [facility] 2 16:26:17 Lesion of breast 708549066 Active 2021 CARON HALE [address] [place], [address], [facility] 2 14:01:55 Loss of hair 276428219 Active 2021 CARON HALE [address] [place], [address], [facility] 2 11:21:55 Anxiety 03890403 Active 2021 CARON HALE [address] [place] [address], [address], [facility] 2 11:24:40 Nausea and vomiting 78432265 Active 2021 CARON HALE [address] [place] [address], [address], [facility] 2 11:38:11 Overweigh t 310251703 Active 2021 CARON HALE [address] [place] [address], [address], [facility] 2 13:03:41 Depressiv e disorder 45352240 Active 2021 CARON HALE [address] [place] [address], [address], [facility] 2 16:43:10 Chronic cough 06807079 Active 2022 CARON HALE [address] [place], [address], [facility] 3 14:37:58 Loss of scalp hair 447774930 Active 2022 CARON HALE [address] [place] [address], [address], [facility] 3 15:43:55 Gastropar esis due to type 2 diabetes mellitus 385074053 Active 2022 CARON HALE [address] [place], [address], [facility] 3 14:20:28 Vesicular eruption 04211715 Active 2022 CARON HALE [address] [place] [address], [address], [facility] 3 14:21:08 Staphyloc occal infection of skin 116531269 Active 2022 CARON HALE [address] [place] [address], [address], [facility] 3 13:15:06 Pain of left knee joint 980173132097 107 Active 2023 CARON HALE [address] [place] [address], [address], [facility] 4 09:32:19 Degenerat ion of lumbar intervert ebral disc 96557469 Active 2023 CARON HALE [address] [place] [address], [address], [facility] 4 15:28:33 Pain of left wrist 750285084308 102 Active 2023 CARON HALE [address] [place] [address], [address], [facility] 4 09:06:05 Pain of left ankle joint 066769546280 82623 Active 2023 CARON HALE [address] [place] [address], [address], [facility] 4 09:06:20 Metabolic acidosis 60733361 Active 2023 CARON HALE [address] [place] [address], [address], [facility] 4 09:07:02 Atypical squamous cells of undetermi shweta significa nce on cervical Papanicol aou smear 753554442 Active 2023 CARON HALE [address] [place] [address], [address], [facility] 4 15:46:53 Stricture of esophagus 93420535 Active 2024 CARON HALE [address] [place] [address], [address], [facility] 5 10:59:26 Acute back pain with sciatica 412588688 Active 2024 CARON HALE [address] [place] [address], [address], [facility] 5 11:12:10 Disorder of connectiv e tissue 826144562 Active 2024 CARON HALE [address] [place] [address], [address], [facility] 5 11:14:27 Whiplash injury to neck 50531378 Active 2024 CARON HALE [address] [place] [address], [address], [facility] 5 14:03:33 Spider bite wound 289236527 Active 2024 CARON HALE [address] [place] [address], , [facility] 5 16:44:13 Body mass index 30+ - obesity 754804147 Active 2024 CARON HALE [address] [place] [address], , [facility] 5 16:50:52 Acquired hypothyro idism 056473279 Active 2024 CARON HALE [address] [place] [address], , [facility] 5 16:59:57 Pustular psoriasis 853905636 Active 2024 CARON HALE [address] [place] [address], , [facility] 5 17:01:40 Lumbar radiculop athy 189988147 Active 2024 CARON HALE [address] [place], [address], [facility] 5 08:34:11 Thoracic radiculop athy 18798333 Active 2024 CARON HALE [address] [place], [address], [facility] 5 08:34:25 Notes:Some problems listed i n Document: #[id number] could not be added to this patient's [...] facia l swell ing CARON HALE [address] [place], [address], [facility] 1 14:16:06 7170 doxycycli ne Not available Not available Not available Not available 01/01/2023 3640 RxNorm CARON HALE [address] [place], [address], [facility] 3 14:27:08 7171 vancomyci n medicatio n Not available Not available Not available 01/01/2023 53218 RxNorm CARON HALE [address] [place], [address], [facility] 3 14:27:33 7172 influenza A (H1N1) medicatio n Not available Not available Not available 01/01/2023 CARON HALE [address] [place], [address], [facility] 3 14:27:46 9472 Reglan medicatio n Not available Not available Not available 03/18/2025 9230 RxNorm CARON HALE [address] [place], [address], [facility] 5 16:44:49 9473 Flagyl medicatio n Not available Not available Not available 03/18/202504358 6 RxNorm DELGADO ROMAN, CARON [address] [place], [address], [facility] 5 16:44:59 Medications Name Sig Start Date Stop Date Status Note LastModified by Organization Details LastModified Time freestyle lite blood glucose monito ring system w/device kit active Not Available Not Available Not Available freestyle lancets misc active Not Available Not Available Not Available cyclobenzap rine 10 mg tablet TAKE 1/2 TABLET BY MOUTH 3 TIMES A DAY FOR 5 DAYS active Not Available Not Available No t Available metformin 500 mg tablet Take 1 tablet twice a day by oral route. 02/28 completed Not Available Not Available Not Available bupropion HCl SR 150 mg tablet,12 hr sustained-r elease TAKE 1 TABLET BY MOUTH EVERY DAY FOR 30 DAYS active Not Available Not Available No t Available cefuroxime axetil 250 mg tablet 12/30 completed Not Available Not Available Not Available clindamycin HCl 300 mg capsule TAKE 1 CAPSULE BY MOUTH TWICE A DAY 02/08 completed Not Available Not Available Not Available [...] Available Not Available phentermine 15 mg capsule Take 1 capsule every day by oral route for 30 days. 06/20 completed Not Available Not Available Not Available topiramate 25 mg tablet Take 1 tablet every day by oral route for 30 days. 2024 active Not Available Not Available Not Avai lable metronidazo le 500 mg tablet TAKE 1 TABLET BY MOUTH TWICE A DAY 02/08 completed Not Available Not Available Not Available phentermine 37.5 mg tablet TAKE 1 TABLET BY MOUTH EVERY DAY DIRECTED 11/22 completed Not Available Not Available Not Available prochlorper azine maleate 10 mg tablet TAKE 1 TABLET BY MOUTH EVERY 8 HOURS NEEDED FOR NAUSEA AND VOMITING 03/11 completed Not Available Not Available Not Available acetaminoph en 500 mg tablet Take 2 tablets every 6 hours by oral route as needed for 30 days. 2024 active Not Available Not Available Not Avai lable phentermine 30 mg capsule Take 1 capsule every day by oral route for 30 days. 10/24 completed Not Available Not Available Not Available ondansetron 8 mg disintegrat ing tablet Place 1 tablet twice a day by transling ual route. 01/01 completed Not Available Not Available Not Available levothyroxi ne 25 mcg tablet TAKE 1/2 TABLET DAILY BY MOUTH active Not Available Not Available No t Available erythromyci n 250 mg tablet TAKE 1 TABLET ORALLY EVERY 8 HOURS WITH MEALS 03/11 completed Not Available Not Available Not Available amoxicillin 875 mg tablet TAKE 1 TABLET BY MOUTH EVERY 12 HOURS FOR 14 DAYS 08/27 completed Not Available Not Available Not Available dexamethaso ne 1 mg tablet TAKE 1 TABLET BY MOUTH ONCE 02/28 completed Not Available Not Available Not Available cephalexin 500 mg capsule Take 1 capsule every 6 hours by oral route for 10 days. 2024 active Not Available Not Available Not Avai lable lidocaine 5 % topical patch APPLY 1 PATCH DAILY FOR 5 DAYS REMOVE AND DISCARD AFTER 12 HOURS DIRECTED active Not Available Not Available No t Available promethazin e 25 mg tablet TAKE 1 TAB BY MOUTH EVERY 6 HOURS NEEDED FOR NAUSEA AND VOMITING 11/22 completed Not Available Not Available Not Available omeprazole 20 mg capsule,del ayed release TAKE 1 CAPSULE BY MOUTH EVERY DAY AT 6: 30 active Not Available Not Available No t Available codeine 10 mg-guaifene sin 100 mg/5 mL oral liquid Take 10 mL every 4 hours by oral route as needed for 7 days. 12/30 completed Not Available Not Available Not Available norethindro ne acetate 5 mg tablet TAKE 1 TABLET BY MOUTH ONCE A DAY active Not Available Not Available No t Available ibuprofen 600 mg tablet TAKE 1 TABLET BY MOUTH EVERY 6 HOURS FOR 5 DAYS active Not Available Not Available No t Available levofloxaci n 750 mg tablet Take [...] Available Not Available No t Available phentermine 37.5 mg capsule Take 1 capsule every day by oral route for 30 days. 2024 active Not Available Not Available Not Avai lable glipizide 5 mg tablet TAKE 1 TABLET BY MOUTH EVERY DAY active Not Available Not Available No t Available minoxidil 2 % topical solution APPLY 1 MILLILITE R BY TOPICAL ROUTE 2 TIMES PER DAY , EVERY DAY, DIRECTLY ONTO THE SCALP IN THE HAIR LOSS AREA 2024 active Not Available Not Available Not Avai lable oxycodone 5 mg tablet TAKE 1 TABLET ORALLY 2 TIMES A DAY NEEDED FOR PAIN 03/11 completed Not Available Not Available Not Available bupropion HCl XL 300 mg 24 hr tablet, extended release Take 1 tablet every day by oral route as directed for 30 days. 2024 active Not Available Not Available Not Avai [...] completed Not Available Not Available Not Available Liletta 20.4 mcg/24 hr (up to 8 years) 52 mg intrauterin e device INSERT VAGINALLY AT PROCEDURE active Not Available Not Available No t Available Rybelsus 7 mg tablet TAKE 1 TABLET BY MOUTH EVERY DAY 04/16 completed Not Available Not Available Not Available Paxlovid 300 mg (150 mg x 2)-100 mg tablets in a dose pack TAKE 3 TABLETS BY MOUTH TWICE A DAY FOR 5 DAYS DIRECTED 11/22 completed Not Available Not Available Not Available Vitals Date Recorded Body height Body mass index (BMI) Body weight Heart rate Oxygen saturation Oxygen saturation in Arterial blood by Pulse oximetry Systolic And Diastolic Provider Name and Address Organization Details Last Updated DateTime 5 144.78 cm 38.1 kg/m2 70798.2 6 g 100 /min 98 % 98 % 136/90 mm[Hg] Kelley Flynn [facility] 5 10:54:32 Date Recorded Body height Body mass index (BMI) Body weight Heart rate Oxygen saturation Oxygen saturation in Arterial blood by Pulse oximetry Systolic And Diastolic Provider Name and Address Organization Details Last Updated DateTime 4 144.78 cm 36.8 kg/m2 15486.7 g 105 /min 98 % 98 % 138/80 mm[Hg] Sunday Santo [facility] 4 16:29:45 Date Recorded Body height Body mass index (BMI) Body weight Heart rate Oxygen saturation Oxygen saturation in Arterial blood by Pulse oximetry Systolic And Diastolic Provider Name and Address Organization Details Last Updated DateTime 5 144.78 cm 38.3 kg/m2 40268.8 5 g 112 /min 98 % 98 % 130/80 mm[Hg] Maida Vincent [facility] 13:40:46 Date Recorded Body height Body mass index (BMI) Body weight Heart rate Oxygen saturation Oxygen saturation in Arterial blood by Pulse oximetry Systolic And Diastolic Provider Name and Address Organization Details Last Updated DateTime 144.78 cm 37.9 kg/m2 60853.6 6 g 111 /min 97 % 97 % 128/68 mm[Hg] CARON HALE [address] [place], [address], [facility] 5 16:08:33 Social History Question Answer Notes LastModified by Organizat ion Details LastModified Time Tobacco Smoking Status Never Smoker CARON HALE [address] [place], [address], [facility] 01/01/2023 14:05:04 What Was The Date Of Your Most Recent Tobacco Screening? 03/18/2025 [email or web address] Information not available 03/18/2025 Sex: Unknown Functional Status None recorded. Mental Status None recorded. Family History Nothing Reported Notes:breast cancer Medical History No medical history recorded. Gynecological HistoryNo gynecological history recorded. Obstetrics History GPAL:G 0 P 0 0 0 0 Past Encounters Encounter ID Performer Location Encounter Start Date Encounter Closed Date Diagnosis/Indication Diagnosis SNOMED-CT Code Diagnosis ICD10 Code Diagnosis IMO Codes Diagnosis Note [id number] Juan Chou DO [facility] [address] [facility],[address] [place] [address] 02/11/2021 13:46:00 02/11/2021 15:39:08 Essential hypertension [id number] I10 stable Gastropare sis due to diabetes mellitus 598428972 E13.43 would like to find new GI Hyperlipidemia 44331725 E78.2 stable last check prior to transfer Polycystic ovary syndrome 562641865 E28.2 will submit referral to gynecology Type 2 gladis betes mellitus 58150673 E11.9 will fu with endocrine referral for evaluation Mammograph ic mass of right breast [id number] 9440135 R92.8 needs fu in April Osteoarthritis 680394489 M15.3 due to Lyme diseasemos tly knees and hips but it does move aroundlast rheumatolo gy visit was 10 years ago Genetic sc reening for disorder 224494913 Z13.71 will fu with genetic screening Fatigue 95931640 R53.83 will fu with testing rheum panel and recheck TSH with T3 [id number] Juan Chou [facility] Internal Medicine [address],[place] [address] 03/21/2021 08:11:44 03/21/2021 16:21:41 Gastroparesis due to type 2 diabetes mellitus 546741132 E11.43 working on diet and using meds for ER Nausea and vomiting 1692 1999 R11.2 has zofran script from ER Diarrhea 83261789 R19.7 will continue on the dissolvabl e N/V mednot interested in a suppositor y Tachycardia 3500773 R00. 0 will fu with event monitor [id number] [facility] [address] [place] [address],[place] [address] 05/10/2021 09:15:21 05/10/2021 11:28:29 Tear of medial meniscus of knee 522391209 S83.242A will fu with MRI [place] [id number] [facility] [address] [place] [address],[place] [address] 06/17/2021 08:20:00 06/20/2021 13:50:14 Panic disorder 408651878 F41.0 sent referralwi ll fu if the patient is not contacted Gastropare sis due to type 2 diabetes mellitus 428293591 E11.43 resolved from recent hospital trip Type 2 gladis betes mellitus 40531641 E11.9 waiting on endo appt Essential hypertension 39040446 I10 stable Gastropare sis due to diabetes mellitus 736814506 E13.43 waiting for GI appt Hyperlipidemia 97363226 E78.2 stable last check prior to transfer Insomnia 175643504 G47.0 1 will start at 10 mg, the patient has gastropare sis, does not digest and absorb things wellwill start at a higher dose [id number] Juan Chou [facility] Internal Medicine [address],[facility] [place] [address] 07/22/2021 16:18:01 07/25/2021 16:33:10 Type 2 diabetes mellitus 14310401 E11.9 stable History of thyroidectomy 508965903 Z90.09 fu with endocrine Obesity 958337061 E66.8 start topimaxfu in two weeks [id number] Juan Chou [facility] Internal Medicine [address],[place] [address] 10/11/2021 13:34:05 10/11/2021 14:40:37 Uvulitis 380934280 K12.2 will start on z leonard for prevention of infection and for anti-infla mmatory properties poor reaction with steriods, will try meloxicam in combo Cough 92806528 R05.1 will start on cough suppressan t as the cough is the main source of her continued discomfort [id number] Juan Chou [facility] Internal Medicine [address],[place] [address] 02/28/2022 10:57:02 02/28/2022 13:19:24 Loss of hair 889725518 L63.0 talking to endocrinol ogy Anxiety 65593040 F41.1 will restart on bupropionw ill help with weight loss Polycystic ovary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
== END 2025-03-25 16:39 | disposition home or self-care (01) ==
LOC: HO.HGI 13:16
PROVIDERS: PCP Internal Medicine; Visit Provider Internal Medicine
DX: K31.84 Gastroparesis (principal); R11.0 Nausea; R68.81 Early satiety; K59.04 Chronic idiopathic constipation; E66.9 Obesity, unspecified; E11.43 Type 2 diabetes mellitus with diabetic autonomic (poly)neuropathy; K21.9 Gastro-esophageal reflux disease without esophagitis
CPT/HCPCS: 99214

== ENCOUNTER 2025-03-27 13:57 | Emergency (ER) | payer OTHER, SELFPAY ==
--- OUTSIDE RECORDS SUMMARY | 2018-04-03 10:45 | XMS_ITS | Continuity of Care Document ---
Author Organization [facility] Address [address] [place] [address] Phone Care Team Providers Care Veneer Splicer Name Role Phone Unavailable Unavailable Unavailable Allergies, Adverse Reactions, Alerts Substance Reaction Status Criticality vancomycin Active No Information doxycycline Active No Information morphine Active No Information Medications Medication Instructions Dosage Effective Dates (start - stop) Status Comments amoxicillin 500 mg capsule take 1 capsule by oral route every 8 hours for 10 days - Active ZOFRAN (unknown strength) take 2.5 milliliter by oral route 2 times every day Not Available - Active REGLAN (unknown strength) take 1 tablet by oral route 4 times every day 30 minutes before meals and at bedtime Not Available - Active Procedures Procedure Date Offic/outpt E&m [facility] 8 Advance Directives Directive Yes / No Effective Date File Name No Information Encounters Encounter Description Practice Location Reason(s) For Visit Diagnoses Date Provider Providers Copied on Encounter Offic/outpt E&m [facility], [address], [place], [place], [id number], [place] tel:[phone] [facility] ear ache (chief complaint) Left otitis media, unspecified otitis media type No Information Family History Family Member Type Diagnosis Age At Onset No Information Payers Payer name Insurance type Covered libertarian ID April daniels(s) Jayna Tejeda [id number] Social History Type Description Quantity Date Captured Comments Alcohol Use Details Caffeine Use Details Unknown Tobacco Use Status No Information Smoking Status No Information Non-Smoking Tobacco Use Details : No Details Available : No Details Available Sex Female Vital Signs Date / Time: Height Weight BMI Pulse Rate Blood Pressure Temperature Respiratory Rate Body Surface Area Head Circumference Head Circ. Percentile Wt./Bandar. Percentile BMI percentile Pulse Ox Inhaled Ox 3:51 PM 57.00 in 180.00 lbs 38.9 5 kg/m eter (2) 49 /min 148/102 mm[Hg] 16 /min 98 % Chief Complaint And Reason For Visit From encounter dated '04/03/2018 15:45'. ear ache (chief complaint) Reason For Referral Reason For Referral No Information History Of Present Illness Encounter Date Complaint History Of Prese nt Illness No Information Functional Status Date Functional Assessmen t No Information Instructions Date Instruction Additional Infor mation No Information Assessments Type Assessment Date No Information Mental Status Date Cognitive Assessment Orientation - [place] ed to time, place, person, situation. Patient Care Teams Name Effective Dates (start - stop) Status Members No Information
--- OUTSIDE RECORDS SUMMARY | 2025-03-26 16:13 | XMS_ITS | Continuity of Care Document ---
Author Organization [facility] ter Address [address] [place] [id number]- Care Team Providers Care Garnett Machine Operator Name Role Phone Juan Chou DO Primary Care Physician Encounter [facility] [place] [facility] Date(s): 03/26/25 - 03/26/[address] [address]- Encounter Diagnosis Lightheadedness(Final) - 03/26/25 Discharge Disposition: A-D/C Home Attending Physician: Hannah Rojas MD Admitting Physician: Hannah Rojas MD Referring Physician: Not on Staff, Referring MD Encounter Type: Disch ES Allergies, Adverse Reactions, Alerts Substance Criticality Severity Reaction Reaction Severity Status doxycycline Active erythromycin itching and rash Active vancomycin Active Reglan Dystonia Akathisia Active flu vaccines Active Immunizations Given and Recorded Vaccine Date Status Refusal Reason SARS-CoV-2 (COVID-19) mRNA BNT-162b2 vac 10/23/20 Recorded SARS-CoV-2 (COVID-19) mRNA BNT-162b2 vac 09/22/20 Recorded SARS-CoV-2 (COVID-19) mRNA BNT-162b2 vac 08/30/20 Recorded Medications acetaminophen 500 mg oral tablet 2 tablet = 1,000 mg, By Mouth, Every 6 hours, PRN as needed for pain, # 50 tablet, 0 Refills, Acute05/13/25 12:00:00 AM EST, 01/16/25 10:30:00 AM EDT, [facility]/pharmacy #[id number], Partial fill upon patient request if the prescription is for a schedule II opioid drug., 145, cm, 01/16/25 10:14:00 EDT, Height, 83, kg, 01/16/25 10:14:00 EDT, Dry Weight Start Date: 01/16/25 Stop Date: 05/13/25 Status: Ordered Medication Dispense Status: Completed Quantity: 50.0 Unit: tablet Total Allowed Fills: 1 Fills Dispensed: 0 buPROPion 150 mg/24 hours (XL) oral tablet, extended release 1 tablet = 150 mg, By Mouth, Daily, # 30 tablet, 0 Refills, Maintenance, 07/13/21 11:24:00 AM EST, XLTablet, Partial fill upon patient request if the prescription is for a schedule II opioid drug. Start Date: 07/13/21 Status: Ordered Medication Dispense Status: Completed Quantity: 30.0 Unit: tablet Total Allowed Fills: 1 Fills Dispensed: 0 glipiZIDE 5 mg oral tablet Refills 0, Maintenance, 09/05/24 11:17:00 AM EDT, Partial fill upon patient request if the prescription is for a schedule II opioid drug. Start Date: 09/05/24 Status: Ordered Medication Dispense Status: Completed Total Allowed Fills: 1 Fills Dispensed: 0 levothyroxine 0.025 mg oral tablet 0.5 tablet = 12.5 mcg, By Mouth, Daily, please take first thing in the am on empty stomach, 60 minutes before food and other medications, # 45 tablet, 3 Refills, Maintenance, 01/24/22 1:00:00 PM EDT, Tablet, [facility]/pharmacy #[id number], Partial fill upon patient request if the prescription is for a schedule II opioid drug., 145, cm, 11/02/21 9:01:00 EDT, Height, 91, kg, 05/28/21 0:57:00 EST, Dry Weight Start Date: 01/24/22 Status: Ordered Medication Dispense Status: Completed Quantity: 45.0 Unit: tablet Total Allowed Fills: 4 Fills Dispensed: 0 norethindrone 5 mg oral tablet 5 mg, 1, tablet, By Mouth, Daily, # 90 tablet, Refills 1, Tot. Refills 1, Maintenance, 01/16/25 10:28:00 AM EDT, Route to Pharmacy Electronically, [facility]/pharmacy #[id number], Partial fill upon patient request if the prescription is for a schedule II opioid drug., 145, cm, 01/16/25 10:14:00 EDT, Height, 83, kg, 01/16/25 10:14:00 EDT, Dry Weight Start Date: 01/16/25 Status: Ordered Medication Dispense Status: Completed Quantity: 90.0 Unit: tablet Total Allowed Fills: 2 Fills Dispensed: 0 omeprazole 20 mg oral enteric coated capsule 1 capsule = 20 mg, By Mouth, Daily, before a meal, 0 Refills, Maintenance, 11/11/24 7:46:00 AM EDT, EC Capsule, Partial fill upon patient request if the prescription is for a schedule II opioid drug. Start Date: 11/11/24 Status: Ordered Medication Dispense Status: Completed Total Allowed Fills: 1 Fills Dispensed: 0 phentermine 37.5 mg oral capsule 1 capsule = 37.5 mg, By Mouth, Daily in AM, at least one hour after meals, 0 Refills, Maintenance, 11/11/24 7:45:00 AM EDT, Capsule, Partial fill upon patient request if the prescription is for a schedule II opioid drug. Start Date: 11/11/24 Status: Ordered Medication Dispense Status: Completed Total Allowed Fills: 1 Fills Dispensed: 0 topiramate 100 mg oral tablet TAKE 1 TABLET BY MOUTH EVERY DAY DIRECTED Start Date: 10/17/24 Status: Ordered Medication Dispense Status: Completed Total Allowed Fills: 1 Fills Dispensed: 0 Mental Status Mental Status Assessment Assessment Assessment Component Result Effecti ve Date Tray coma score total 15 Mental Status Assessment Assessment Assessment Component Result Effecti ve Date [place] coma score total 15 Body height 175 03/26/25 Body weight 82 03/26/25 Problem List Condition Confirmation Course Effective Dates [...] breast Confirmed Active Polycystic ovaries Confirmed Active Thyroid dysfunction 2 Confirmed Active Diabetes mellitus type 2 in obese Confirmed Active 1left terminal duct procedure 2had two thirds of thyroid removed because of a nodule in 2007. Biopsy inconclusive Results Radiology Reports * Exam Date Time Procedure Performing Provider Status 03/26/25 3:[address] Abd/Pelvis W/ IV Contrast Only Auth (Verified) Notes: (CT Abd/Pelvis W/ IV Contrast Only) Reason For Exam: n/v elevated lipase;Other: RESULT: CT Abd/Pelvis W/ IV Contrast Only CT Abd/Pelvis W/ IV Contrast Only Hx of Present Illness: Pt coming from work, reports feeling lightheaded, dizzy, tachycardia w some vomiting since last night. Reports hx gastroparesis, pre- diabetes. 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 EKG non-diagnostic; Reason: Other:; n v elevated lipase; Clinical Question(s): Pancreatitis; Order Comment: TECHNIQUE: Spiral CT through the abdomen and pelvis with IV contrast formatted in 3 planes. 100 cc of Isovue 300 100cc vials was administered intravenously. This study was performed without oral contrast. Weight-based protocol using automatic tube modulation was used to optimize exposure parameters. COMPARISON: None. FINDINGS: Farm[employer] Findings, Lines and Tubes: None. Visualized Chest: Lung bases are without consolidation or pleural effusion. Diaphragm: Normal. Liver: Normal morphology and attenuation. No suspicious lesion. Gallbladder: Previous cholecystectomy. Bile ducts: No biliary ductal dilation. Spleen: Nonenlarged spleen. No acute abnormality Pancreas: Normal. Adrenal glands: No mass or thickening Kidneys and ureters: No hydronephrosis, stones, or suspicious masses. Bladder: Normal. Reproductive organs: Small volume of fluid adjacent to the adnexa on the left which can be seen with recent cyst or follicle rupture with simple attenuation. Stomach, small bowel, and large bowel: No bowel obstruction. No evidence of acute inflammation. Appendix: No evidence for appendicitis Peritoneum and retroperitoneum: Trace free fluid in the left pelvis, likely physiologic. No omentalor mesenteric lesions. Lymph nodes: No adenopathy. Blood vessels: Normal. No aneurysm. No evidence of venous thrombosis. Abdominal and pelvic wall: No acute abnormality. Bones: No acute abnormality. IMPRESSION: No acute abnormality on CT of the abdomen and pelvis. No peripancreatic stranding or fluid. No imaging evidence for pancreatitis. Further correlation maybe made with laboratory values. Trace free fluid in the left pelvis. This can be physiologic or seen with recent cyst or follicle rupture, and is simple in attenuation. WSN: [id number] Ordering Physician: Hannah Rojas Dictated By: Tatiana Burt MD Dictated Date/Time: 03/26/25 3:10 pm Reviewed By: Tatiana Burt MD Signed By: Tatiana Burt MD Signed Date/Time: 03/26/25 3:10 pm Transcribed By: PAULA Transcribed Date/Time: 03/26/25 3:06 pm * Exam Date Time Procedure Performing Provider Status 03/26/25 11:59 AM Chest 2 Views Frontal and Lat Auth (Verified) Notes: (Chest 2 Views Frontal and Lat) Reason For Exam: Chest Pain;Other: RESULT: Chest 2 Views Frontal and Lat Chest 2 Views Frontal and Lat Hx of Present Illness: Pt coming from work, reports feeling lightheaded, dizzy, tachycardia w some vomiting since last night. Reports hx gastroparesis, pre- diabetes. 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 EKG non-diagnostic; Reason:Chest Pain; COMPARISON: None. FINDINGS: LINES AND TUBES: None. LUNGS AND PLEURA: Clear lungs. Normal pulmonary vascularity. No evidence of pleural effusion. No pneumothorax. HEART, MEDIASTINUM AND ROVERTO: Heart is normal in size. Normal mediastinal and hilar contour. BONES AND SOFT TISSUES: No acute abnormality. Cholecystectomy clips. IMPRESSION: No acute abnormality. WSN: [id number] Ordering Physician: Aneudy Otero Dictated By: Velasquez Ailcea MD, V Dictated Date/Time: 03/26/25 12:19 p Reviewed By: Velasquez Alicea MD, V Signed By: Velasquez Alicea MD, V Signed Date/Time: 03/26/25 12:19 pm Transcribed By: PAULA Transcribed Date/Time: 03/26/25 12:04 pm Vital Signs Most recent to oldest [Reference Range]: 1 2 3 Height 175 cm (03/26/25 11:34 AM) 175 cm (03/26/25 11:02 AM) Weight 82 kg (03/26/25 11:34 AM) 82 kg (03/26/25 11:02 AM) Oxygen Saturation [94-100 %] 100 % (03/26/25 4:04 PM) 100 % (03/26/25 3:36 PM) 98 % (03/26/25 1:33 PM) Pulse Rate [55-90 bpm] 101 bpm *H* (03/26/25 4:04 PM) 93 bpm *H* (03/26/25 3:36 PM) 87 bpm (03/26/25 1:33 PM) Body Mass Index [18.5-24.99 kg/m2] 26.78 kg/m2 *H* (03/26/25 11:02 AM) Blood Pressure [90-138/55-84 mm Hg] 138/102mm Hg (03/26/25 4:04 PM) 151/106mm Hg *H* (03/26/25 3:36 PM) 128/101mm Hg (03/26/25 1:33 PM) Respiratory Rate [16-30 br/min] 17 br/min (03/26/25 4:04 PM) 17 br/min (03/26/25 3:36 PM) 17 br/min (03/26/25 1:33 PM) Temperature [96.8-100.4 DegF] 98.4 DegF (03/26/25 11:02 AM) Mode of Delivery (Oxygen) Room air (03/26/25 4:04 PM) Room air (03/26/25 3:36 PM) Room air (03/26/25 1:33 PM) Blood pressure sites Arm, right (03/26/25 4:04 PM) Arm, left (03/26/25 3:36 PM) Arm, left (03/26/25 1:33 PM) Temperature Route Oral (03/26/25 11:02 AM) Weight Obtained Via Patient/family state d (03/26/25 11:02 AM) Social History Social History Type Response Smoking Status Never (less than 100 in lifetime) entered on: 10/07/24 Sexual Orientation Self described trevoren tation: ; Straight or heterosexual Sex Sex Representation Female (finding) Status Unknown EKG study * Event Display: ECG 12-Lead Authored Date: Please click on pdf link to open report * Event Display: ECG 12-Lead Authored Date: Ventricular Rate: 115 BPM Atrial Rate: 115 BPM P-R Interval: 144 ms QRS Duration: 66 ms Q-T Interval: 322 ms QTC Calculation(Bazett): 445 ms P Vaiden: 49 degrees R Vaiden: 23 degrees T Vaiden: 28 degrees Sinus tachycardia Otherwise normal ECG When compared with ECG of 12-Dec-2023 08:38, No significant change was found Confirmed by JOSESITO NOLAN ([id number]) on 03/26/2025 11:46:41 AM [place]: JOSESITO NOLAN * Event Display: EKG Authored Date: [id number] Note * Hannah Rojas MD: PERFORM Event Display: Patient Education Leaflets Authored Date: [id number] Heart Palpitations ?? [id number] Heart Palpitations Palpitations are the feeling that your heart is beating hard, fast, or irregular. Some describe it as pounding, flip-flopping in the chest, or skipped beats. Palpitations may occur in someone with or without heart disease. Heart-related causes: ??? Heart rhythm problem (arrhythmia). ??? Heart valve disease. ??? Disease of the heart muscle (cardiomyopathy). ??? Coronary artery disease. ??? High blood pressure. Nonheart-related causes: ??? Certain medicines, such as asthma inhalers and decongestants. ??? Some herbal supplements, energy drinks and pills, and weight loss pills. ??? Illegal stimulant drugs, such as cocaine, crank, methamphetamine, PCP, and ecstasy. ??? Caffeine, alcohol, and tobacco. ??? Health conditions, such as thyroid disease, anemia, anxiety, and panic disorder. Sometimes the cause can't be found. Home care Follow these home care tips: ??? Don't use too much caffeine, alcohol, or tobacco, or any stimulantdrugs. ??? Tell your health care provider about any prescription, hwxr-cyd-wkrkeer, vitamins, supplements, or herbal medicines you take. ?? Follow-up care ??? Follow up with your health care provider, or as advised. ?? Call 911 This is the fastest and safest way to get to the emergency department. The paramedics can also start treatment on the way to the hospital, if needed. Don't wait until your symptoms are severe to call 911. These are reasons to call 911: ??? Chest pain. ??? Shortness of breath. ??? Feeling lightheaded, faint, or dizzy, or losing consciousness. ??? Keshav irregular heartbeat. ??? A rapid heartbeat that makes you uncomfortable. ??? A slower than usual heart rate along with symptoms. ??? Chest pain with weakness, dizziness,??heavy sweating, nausea, or vomiting. ??? Extreme drowsiness, confusion, or weakness. ??? Weakness of an arm or leg, or on one side of the face. ??? Trouble with speech or vision. ?? When to get medical advice Contact your health care provider or get medical care right away if you have palpitations that lastlonger than normal, or are different from your past palpitations. ?? Last Reviewed Date: 2024 00:00:00 ?? [id number] The [employer]. All rights reserved. This information is not intended as a substitute for professional medical care. Always follow your healthcare professional's instructions. ?? Patient Care team information Care Team Personnel Name: Juan Chou DO Position: Reference Physician Member Role: PCP Address: [address] [place] [address] Internal Medicine [place], [place] [address] Telecom: Care Team Related Persons Name: SHAYNE ROBERSON Name: ERASMO DIAZ Name: JOCELYN DIAZ Insurance Providers Guarantor name: RIGO DIAZ Health Plan Information #: 1 Payer: [facility] FF NON BHP HMO P Payer Identifier: NA Member Number: [id number] Group Number: [id number] Subscriber Identifier: [id number] Relationship to Subscriber: self Coverage Type: Other Private Insurance Coverage Verification Date: NA Telecom: NA Address: NA
--- NOTE | ~2025-03-27 | CT_ITS ---
EXAMINATION: CT HEAD WITHOUT CONTRAST CLINICAL INFORMATION: Headache, hypertension COMPARISON: None available. TECHNIQUE: Contiguous axial imaging was performed from the skull base to vertex without intravenous administration of contrast. This CT examination was performed using dose optimization techniques as appropriate, variously including the following: *Automated exposure control *Adjustment of mA and/or kV according to patient size (this includes techniques or standardized protocols for targeted exams where dose is matched to indication/reason for exam; i.e. extremities or head) *Use of iterative reconstruction technique FINDINGS: Again seen is chronic encephalomalacia the posterior left frontal lobe. There is no acute ischemic change. There is no intracranial hemorrhage. There is no mass-effect or midline shift. Basal cisterns and ventricles are within normal limits for age/cerebral volume. Orbits are symmetrical and unremarkable. Paranasal sinuses and mastoid air cells are pneumatized. There are no bony abnormalities. CT/CT head/brain wo IV con IMPRESSION: No acute intracranial abnormality. Chronic posterior left frontal encephalomalacia. Electronically signed by: Dg Blount MD 03/27/2025 04:53 PM EST
[2025-03-27 14:52] VITALS: BP 170/112; PULSE 114; RESP 18; O2SAT 100; BMI 36.8
--- NOTE | 2025-03-27 14:53 | ED.GENADULT ---
HPI - General Adult General Chief complaint: General Medical Stated complaint: High Blood Pressure Time Seen by Provider: 03/27/25 16:41 Source: patient Mode of arrival: ambulatory Limitations: no limitations History of Present Illness ED Provider: HPI narrative: 35-year-old woman presenting with a headache and elevated blood pressure, seen at [facility] for same, states was given lorazepam evaluated and discharged, patient states that she has a history of gastroparesis and has had elevated blood pressure in the past during gastroparesis flares, she is also using phentermine for weight loss she has been on it for 6 months. No chest pain no shortness of breath no visual changes no weakness in upper or lower extremities. Related Data Home Medications ?Medication ?Instructions ?Recorded ?Confirmed topiramate 100 mg tablet (Topamax) 100 mg PO DAILY 07/30/23 02/19/25 levothyroxine 25 mcg tablet 12.5 mcg PO DAILY 04/15/24 02/19/25 glipizide 5 mg tablet 5 mg PO DAILY 06/16/24 02/19/25 norethindrone acetate 5 mg tablet 5 mg PO DAILY 02/19/25 02/19/25 phentermine 37.5 mg capsule 37.5 mg PO DAILY 02/19/25 02/19/25 acetaminophen 500 mg tablet 1,000 mg PO Q6H PRN 03/25/25 bupropion HCl 300 mg 24 hr tablet, 300 mg PO DAILY 03/25/25 extended release topiramate 25 mg tablet 25 mg PO DAILY 03/25/25 Previous Rx's ?Medication ?Instructions ?Recorded blood sugar diagnostic (FreeStyle #100 ea 03/23/24 Lite Strips) blood-glucose meter (FreeStyle #1 ea 03/23/24 Lite Meter kit) lancets 28 gauge (FreeStyle #100 ea 03/23/24 Lancets) wedge pillow #1 ea 09/15/24 metronidazole 500 mg tablet 500 mg PO BID #14 tabs 01/02/25 omeprazole 20 mg capsule,delayed 20 mg PO DAILY #90 caps 03/23/25 release prucalopride 1 mg tablet 1 mg PO DAILY #90 tabs 03/25/25 (Motegrity) Allergies Allergy/AdvReac Type Severity Reaction Status Date / Time morphine Allergy Severe Headache Verified 03/27/25 14:54 vancomycin (VANCOMYCIN) Allergy Severe ANAPHYLAXIS Verified 03/27/25 14:54 doxycycline (DOXYCYCLINE) Allergy Intermediate SWELLING Verified 03/27/25 14:54 erythromycin base Allergy Intermediate Itching Verified 03/27/25 14:54 from IV form influenza virus vaccine, Allergy Mild Swelling Verified 03/27/25 14:54 specific (FLU VACCINE) metoclopramide (From Reglan) Allergy Unknown Verified 03/27/25 14:54 shellfish Allergy Mild Swelling Uncoded 03/27/25 14:54 Review of Systems Constitutional: Constitutional: Reports as per HPI [facility] Past Medical History Medical History Encounter for intrauterine device placement New onset type 2 diabetes mellitus Cholecystectomy planned Pre-diabetes Lyme disease Osteoarthritis PCOS (polycystic ovarian syndrome) Gastroparesis Surgical History H/O dilation and curettage Hx of colonoscopy History of esophagogastroduodenoscopy (EGD) (03/2024) History of cholecystectomy H/O partial thyroidectomy Family History Family History Maternal Aunt Breast cancer Social History Social History Household Members: Friend(s) Housing: House Housing Other:: stairs Do you presently have visiting nurse or other home services: No Alcohol intake: never Patient Tobacco Use Status: Never used Tobacco Second Hand Smoke Exposure: No service: No Current occupational status: employed Physical Exam ED Exam Exam: General: Appears of stated age ? CV: RRR, no obvious murmurs appreciated ? Resp: ?No wheezing rales rhonchi no stridor moving air well ? Abd: ?Bowel sounds are present, no tenderness no rebound no rigidity ? MSK: FROM, strength 5/5 all extremities ? Skin: Warm, dry, intact, ? Neuro: ?Alert and oriented x3, moving upper and lower extremities symmetrically, no obvious facial asymmetry noted, cranial nerves 2-12 intact Vital Signs: Vital Signs - 24 hr 03/27/25 14:52 Pulse Rate 114 H Respiratory Rate 18 Blood Pressure 170/112 H Pulse Oximetry 100 Oxygen Delivery Method Room Air BMI result Body Mass Index 36.8 Course Course Course Narrative: This is a rapid medical exam performed by Vijaya Parker NP: Additional HPI, ROS, PE not included below will be deferred to primary provider. Patient is a 35y/o F with no hx of HTN presenting to the ED with complaint of multiple elevated BP readings. Today has headache. Readings in the 200's over 100's. Went to [facility] yesterday, medicated via IV and discharged. Feels lightheaded/dizzy. States her lipase levels were high yesterday, had abd CT. 170/112 in triage. Plan: EKG, labs Medical Decision Making Medical Decision Making [facility] Narrative: 5:07 PM 03/27/2025 (Dr. Mac Arriaza): I discussed with the patient blood pressure management long-term, her cardiac workup today and workup for head pressure is experience she is negative there was no evidence for end-organ damage such as ACS, UTI, head bleed, she is using phentermine which is a sympathomimetic which would cause hypotension, specifically diastolic hypotension and can cause tachycardic as well, I am going to ask her to start weaning off this medication and she has seen her PCP in 2 weeks, I do not feel that any to start her on blood pressure medications at this time as she we will be following up with the PCP. Differential Diagnosis Differential Diagnoses: The differential diagnosis associated with the presentation includes ( ACS, subarachnoid hemorrhage, KONSTANTIN, hypotensive emergency, stroke) Admission/Observation Consideration of admission/observation: Escalation of care including admission/observation considered Lab Data [facility] Lab Attestation statement: I reviewed the patient's lab results. 03/27/25 15:08 03/27/25 15:08 Labs: Lab Results 03/27/25 Range/Units 15:08 WBC 9.0 (4.8-10.8) X10*3/uL RBC 4.96 (4.20-5.50) X10*6/uL Hgb 14.1 (12.0-16.0) g/dl Hct 42.5 (37.0-47.0) % MCV 85.7 (80.0-98.0) fL MCH 28.4 (27.0-33.0) pg MCHC 33.2 (31.0-35.0) g/dl RDW 13.4 (11.0-16.0) % Plt Count 440 H (160-400) X10*3/uL MPV 9.5 (9.4-12.3) fL Immature Gran % (Auto) 0.2 (0.0-0.4) % Neut % (Auto) 62.1 (45-73) % Lymph % (Auto) 31.3 (20-40) % Jasper % (Auto) 4.8 (2-11) % Eos % (Auto) 1.0 (0-4) % Baso % (Auto) 0.6 (0-2) % Lymph # (Auto) 2.8 (1.2-4.9) X10*3/uL Jasper # (Auto) 0.4 (0.1-1.2) X10*3/uL Eos # (Auto) 0.1 (0.0-0.4) X10*3/uL Baso # (Auto) 0.1 (0.0-0.2) X10*3/uL Abs Immat Gran (auto) 0.02 (0.00-0.03) X10*3/uL Absolute Neuts (auto) 5.6 (2.0-8.3) x10*3/uL Absolute Nucleated RBC 0.000 (0.0-0.012) X10*3/uL Nucleated RBC % (auto) 0.0 (0.0-0.2) /100WBC Sodium 140 (135-145) mmol/L Potassium 4.2 (3.3-5.1) mmol/L Chloride 111 H (96-108) mmol/L Carbon Dioxide 21 L (22-29) mmol/L Anion Gap 12 (12-20) BUN 12 (9-16) mg/dL Creatinine 0.97 (0.5-1.4) mg/dL Estim Creat Clear Calc 68.3 Estimated GFR > 60 Random Glucose 270 H (60-115) mg/dL Calcium 9.2 (8.4-10.2) mg/dL Total Bilirubin 0.2 (0.0-1.0) mg/dL AST 16 (5-31) U/L ALT 29 (0-31) U/L Alkaline Phosphatase 78 (39-117) U/L Total Protein 7.9 (6.5-8.0) g/dL Albumin 4.6 (3.5-5.0) g/dL Independent Interpretation I performed an independent interpretation of an: EKG ( 100 beats per minute otherwise normal ECG without dysrhythmia, AV harman blocks or ST-T changes to suspect underlying ACS, my independent interpretation) Radiology Impression Discussion of test interpretation with radiology: I have reviewed the radiologist's reading. ( CT/CT head/brain wo IV con IMPRESSION: No acute intracranial abnormality. Chronic posterior left frontal encephalomalacia.) Chronic Conditions Patient?s care impacted by: Hypertension Discharge Plan Discharge Clinical Impression: Elevated blood pressure reading, Headache Additional Instructions: as discussed I would like you to start taking phentermine every other day, and keep a log of your blood pressure at home, I recommend that you take blood pressure measurements at least 3 times a week twice daily but not be concern about the actual numbers write them down for your PCP and make sure there is a trend of the blood pressure readings relating to phentermine weaning that you can present a PCP to discuss whether you need to be on antihypertensive medications on regular basis, your cardiac workup- EKG, CT of the brain has been reassuring there was no specific blood pressure numbers that I tell people to return to emergency department for mostly if the symptoms that your experiencing are concerning to this is when you need to come back to the ER for re-evaluation. Prescriptions: No Action omeprazole 20 mg capsule,delayed release(DR/EC) 20 mg PO DAILY Qty: 90 1RF metronidazole 500 mg tablet 500 mg PO BID Qty: 14 0RF phentermine 37.5 mg capsule 37.5 mg PO DAILY norethindrone acetate 5 mg tablet 5 mg PO DAILY (DME) FreeStyle Lite Strips Strip Qty: 100 0RF Rx Instructions: Test four times a day or as directed. (DME) blood-glucose meter [FreeStyle Lite Meter] Kit Qty: 1 0RF Rx Instructions: As Directed (DME) lancets [FreeStyle Lancets] 28 gauge misc Qty: 100 0RF Rx Instructions: Test four times a day or as directed. glipizide 5 mg tablet 5 mg PO DAILY topiramate 25 mg tablet 25 mg PO DAILY acetaminophen 500 mg tablet 1,000 mg PO Q6H PRN bupropion HCl 300 mg tablet extended release 24 hr 300 mg PO DAILY prucalopride [Motegrity] 1 mg tablet 1 mg PO DAILY Qty: 90 0RF topiramate [Topamax] 100 mg tablet 100 mg PO DAILY levothyroxine 25 mcg tablet 12.5 mcg PO DAILY (DME) wedge pillow See Rx Instructions .Route .MEDSUPPLY Qty: 1 0RF Rx Instructions: As directed Referrals: Juan hCou MD [Primary Care Provider, Internal Medicine] - 2 weeks Clinical Impression: Elevated blood pressure reading; Headache Print Language: Armenian
--- NOTE | 2025-03-27 14:55 | ECG_ITS ---
Test Reason : HYPERTENSION Blood Pressure : */* mmHG Vent. Rate : 100 BPM Atrial Rate : 100 BPM P-R Int : 126 ms QRS Dur : 68 ms QT Int : 340 ms P-R-T Axes : 18 8 0 degrees QTcB Int : 438 ms Poor data quality, interpretation may be adversely affected Normal sinus rhythm Minimal voltage criteria for LVH, may be normal variant ( R in aVL ) Borderline ECG When compared with ECG of 20-Mar-2024 03:06, No significant change was found Referred By: Juana Parker Electronically Signed By: DA GEIGER MD
[2025-03-27 15:14] LABS: MANUAL DIFF FLAG NO
[2025-03-27 15:23] LABS: Hematocrit 42.5 % (37.0-47.0); Hemoglobin 14.1 g/dl (12.0-16.0); Imm Gran Abs Auto 0.02 X10*3/uL (0.00-0.03); Imm Gran Pct Auto 0.2 % (0.0-0.4); Lymphocytes Absolute Auto 2.8 X10*3/uL (1.2-4.9); Mean Corpuscular HGB Conc 33.2 g/dl (31.0-35.0); Mean Corpuscular Hemoglobin 28.4 pg (27.0-33.0); Mean Corpuscular Volume 85.7 fL (80.0-98.0); NRBC Abs Auto 0.000 X10*3/uL (0.0-0.012); NRBC Pct Auto 0.0 /100WBC (0.0-0.2); Platelet Count 440 X10*3/uL (160-400); Red Blood Count 4.96 X10*6/uL (4.20-5.50); White Blood Count 9.0 X10*3/uL (4.8-10.8)
[2025-03-27 15:38] LABS: Alanine Aminotransferase 29 U/L (0-31); Albumin Level 4.6 g/dL (3.5-5.0); Alkaline Phosphatase 78 U/L (39-117); Anion Gap 12 (12-20); Aspartate Amino Transferase 16 U/L (5-31); Blood Urea Nitrogen 12 mg/dL (9-16); Calcium 9.2 mg/dL (8.4-10.2); Carbon Dioxide 21 mmol/L (22-29); Chloride 111 mmol/L (96-108); Creatinine Clr Calc Pharmacy 68.3; Estimated Glomerular Filt Rate > 60; Potassium 4.2 mmol/L (3.3-5.1); Sodium 140 mmol/L (135-145); Total Protein 7.9 g/dL (6.5-8.0)
[2025-03-27 17:03] VITALS: BP 160/139; PULSE 107; RESP 18; TEMP 36.8; O2SAT 100
[2025-03-27 18:26] VITALS: BP 181/120; PULSE 107; RESP 18; TEMP 36.8; O2SAT 99
[2025-03-27 18:30] VITALS: BP 181/120; PULSE 107; RESP 18; TEMP 36.8; O2SAT 99
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
== END 2025-03-27 18:39 | disposition home or self-care (01) ==
PROVIDERS: Registered Nurse Emergency; Emergency Provider Emergency Medicine; PCP Internal Medicine
DX: R51.9 Headache, unspecified (principal); R03.0 Elevated blood-pressure reading, without diagnosis of hypertension; Z79.899 Other long term (current) drug therapy
CPT/HCPCS: 36415; 70450; 80053; 85025; 93005; 99284

== ENCOUNTER → 2025-03-27 14:55 | Outpatient (BNV) | payer OTHER, SELFPAY | PROVIDERS: Emergency Provider Emergency Medicine; PCP Internal Medicine; Visit Provider Radiology Diagnostic Radiology | DX: G93.89 Other specified disorders of brain (principal) | CPT/HCPCS: 70450 ==

== ENCOUNTER → 2025-03-27 14:55 | Outpatient (BNV) | payer OTHER, SELFPAY | PROVIDERS: Emergency Provider Emergency Medicine; PCP Internal Medicine; Visit Provider Internal Medicine Cardiovascular Disease | DX: I10 Essential (primary) hypertension (principal) | CPT/HCPCS: 93010 ==

== ENCOUNTER 2025-04-08 11:26 | Outpatient (REF) | payer OTHER, SELFPAY ==
--- OUTSIDE RECORDS SUMMARY | 2021-04-06 13:16 | XMS_ITS | Encounter Summary ---
Author Organization [facility] Address [address] [facility] [address] [place] [phone] Phone Care Team Providers Care House Moving Supervisor Name Role Phone Janny Peoples CLIENT RENEWAL SPECIALIST Primary Care Provid er Encounter Details Date Type Department Care Team (Late st Contact Info) Description 04/06/2021 1:16 PM EST Hospital Encounter [facility] [address] [place] [phone] Mackenzie Oconnell FNP [address] [place] [phone] [email or web address] Social History Tobacco Use Types Packs/Day Years [...] 5:18 PM EDT Hoa Ba RN * [place] Suicide Severity Rating Scale (Screener/Recent Self-Report) Question [...] report originally createdby Farhad Chau. Mackenzie Oconnell MELTER SUPERVISOR OXYGEN FURNACE IMG XR LOWER EXTREMITY Malu l Result documented in this encounter Visit Diagnoses Not on filedocumented in this encounter Additional Health Concerns Infection Onset Date Last Indicated Resolved Time CoV-Risk 06/28/2024 06/28/2024 07/09/2024 1:24 AM EST documented as of this encounter Care Teams House Moving Supervisor Relationship Specialty Start Date End Date Janny Peoples NP [address] [place] [address] [email or web address] PCP - General Family Medicine 06/06/19 05/18/21 documented as of this encounter Additional Source Comments The information contained in this document represents components of the legal health record. It is not the complete legal health record.[facility]
[2025-04-08 11:48] LABS: MANUAL DIFF FLAG NO
[2025-04-08 12:42] LABS: Hematocrit 40.9 % (37.0-47.0); Hemoglobin 13.8 g/dl (12.0-16.0); Imm Gran Abs Auto 0.02 X10*3/uL (0.00-0.03); Imm Gran Pct Auto 0.3 % (0.0-0.4); Lymphocytes Absolute Auto 2.6 X10*3/uL (1.2-4.9); Mean Corpuscular HGB Conc 33.7 g/dl (31.0-35.0); Mean Corpuscular Hemoglobin 29.2 pg (27.0-33.0); Mean Corpuscular Volume 86.5 fL (80.0-98.0); NRBC Abs Auto 0.000 X10*3/uL (0.0-0.012); NRBC Pct Auto 0.0 /100WBC (0.0-0.2); Platelet Count 423 X10*3/uL (160-400); Red Blood Count 4.73 X10*6/uL (4.20-5.50); White Blood Count 7.3 X10*3/uL (4.8-10.8)
[2025-04-08 13:12] LABS: Alanine Aminotransferase 23 U/L (0-31); Albumin Level 4.5 g/dL (3.5-5.0); Alkaline Phosphatase 69 U/L (39-117); Anion Gap 10 (12-20); Aspartate Amino Transferase 15 U/L (5-31); Blood Urea Nitrogen 13 mg/dL (9-16); Calcium 9.1 mg/dL (8.4-10.2); Carbon Dioxide 19 mmol/L (22-29); Chloride 112 mmol/L (96-108); Cholesterol 296 mg/dL (<200); Estimated Glomerular Filt Rate 60; HDL Cholesterol 33 mg/dL (>40); Iron 70 mcg/dL (30-160); Percent Iron Saturation 18 % (15-50); Potassium 3.8 mmol/L (3.3-5.1); Sodium 137 mmol/L (135-145); Total Iron Binding Capacity 382 mcg/dL (228-428); Total Protein 7.6 g/dL (6.5-8.0); Triglycerides 183 mg/dL (<150); Unsaturated Iron Binding 312 ug/dL
[2025-04-08 13:38] LABS: Ferritin 25 ng/mL (10-122); Free T4 (Free Thyroxine) 1.04 ng/dL (0.71-1.85); Thyroid Stimulating Hormone 0.73 uIU/mL (0.32-4.0)
[2025-04-08 13:40] LABS: Folate 7.5 ng/mL (> or = 4.0); Vitamin B12 174 pg/mL (200-900)
--- OUTSIDE RECORDS SUMMARY | 2025-04-08 14:27 | XMS_ITS | Encounter Summary ---
Author Organization [facility] Address [address] [place] [address] Phone Care Team Providers Care Feeder Catcher Tobacco Name Role Phone Janny Peoples NP Primary Care Provid er Keon Bates MD Unavailable [phone] BigJuan cote DO Primary Care Provider [phone] BigdaJuan DO Unavailable Bigkera, Juan Guzman DO Primary Care Provider [phone] Encounter Details Date Type Department Care Team (Late st Contact Info) Description 11/03/2020 Ancillary Orders Virtual Department [address] [place] [address] Janny Peoples, RUBA [address] [place] [phone] [email or web address] Unspecified lump in the right breast, [...] documented as of this encounter Care Teams Feeder Catcher Tobacco Relationship Specialty Start Date End Date Janny Peoples NP [address] [place] [address] [email or web address] PCP - General Family Medicine 06/06/19 05/18/21 Juan Chou DO [address] [place] [address] [email or web address] PCP - General Internal Medicine 05/19/21 02/13/25 Juan Chou DO [address] [place] [address] [email or web address] PCP - General Internal Medicine 02/14/25 Keon Bates MD [address] [place] [address] [email or web address] Insurance Assigned Provider 12/18/19 11/20/20 Juan Chou DO [address] [place] [address] [email or web address] Insurance Assigned Provider 05/21/21 03/19/22 documented as of this encounter Additional Source Comments The information contained in this document represents components of the legal health record. It is not the complete legal health record.[facility]
--- OUTSIDE RECORDS SUMMARY | 2025-04-08 14:27 | XMS_ITS | Encounter Summary ---
Author Organization [facility] Address [address] [place] [address] Phone Care Team Providers Care Steeler Name Role Phone Janny Peoples NP Primary Care Provid er Keon Bates MD Unavailable [phone] BigJuan cote DO Primary Care Provider [phone] BigJuan cote DO Unavailable BigJuan cote DO Primary Care Provider [phone] Encounter Details Date Type Department Care Team (Late st Contact Info) Description 11/03/2020 Ancillary Orders Virtual Department [address] [place] [address] Janny Peoples, RUBA [address] [place] [address] [place] [phone] [email or web address] Social History Tobacco Use Types Packs/Day Years [...] documented as of this encounter Care Teams Steeler Relationship Specialty Start Date End Date Janny Peoples NP [address] [place] [address] [email or web address] PCP - General Family Medicine 06/06/19 05/18/21 Juan Chou DO [address] [place] [address] [email or web address] PCP - General Internal Medicine 05/19/21 02/13/25 Juan Chou DO [address] [place] [address] [email or web address] PCP - General Internal Medicine 02/14/25 Keon Bates MD [address] [place] [address] Insurance Assigned Provider 12/18/19 11/20/20 Juan Chou DO [address] [place] [address] Insurance Assigned Provider 05/21/21 03/19/22 documented as of this encounter Additional Source Comments The information contained in this document represents components of the legal health record. It is not the complete legal health record.[facility]
--- OUTSIDE RECORDS SUMMARY | 2025-04-08 14:28 | XMS_ITS | Encounter Summary ---
Author Organization [facility] Address [address] [facility] [address] [place] [address] Phone Care Team Providers Care Supervisor Park Workers Name Role Phone Juan Chou Primary Care Provider [phone] Encounter Details Date Type Department Care Team ([facility] st Contact Info) Description 02/14/2025 Procedure Pass [facility], Ct Scan - [address] [address] Social History Tobacco Use Types Packs/Day Years [...] 5:18 PM EDT Hoa Ba RN * [place] Suicide Severity Rating Scale (Screener/Recent Self-Report) Question [...] filedocumented in this encounter Care Teams Supervisor Park Workers Relationship Specialty Start Date End Date Juan Chou DO [address] [place] [address] [email or web address] PCP - General Internal Medicine 02/14/25 documented as of this encounter Additional Source Comments The information contained in this document represents components of the legal health record. It is not the complete legal health record.[facility]
--- OUTSIDE RECORDS SUMMARY | 2025-04-08 14:28 | XMS_ITS | Clinical Summary ---
Author Organization [facility] Address [address] [phone] Phone Care Team Providers Care Vice President Education Name Role Phone Juan Chou Primary Care Provider Allergies Active Allergy Reactions Criticality Noted Date [...] 02/14/2025 11:54 PM EDT Emergency [facility] Emergency [address] [place] [address] Elias Sims MD Discharge Disposition: Home or Self Care 02/14/2025 Procedure Pass [facility], Ct Scan [address] [address] 02/14/2025 Procedure Pass [place], Ct Scan [address] [address] from Last 3 Months Immunizations Immunization Administration [...] clinician's provided indication for this examination in [facility]: * Back trauma, no prior imaging (Age [...] clinician's provided indication for this examination in [place] [facility]: *Back trauma, no prior imaging (Age >= [...] mild coronary calcifications, greater thanexpected for age. us Elias Sims MD IMG CT XSPECIALTY ORDERAB [...] clinician's provided indication for this examination in [place] [facility]: * Neck trauma, dangerous injury mechanism (Age [...] clinician's provided indication for this examination in [facility]: *Neck trauma, dangerous injury mechanism (Age 16-64y); [...] Insurance [address] [place] [address] INSURANCE Care Teams Vice President Education Relationship Specialty Start Date End Date Juan Chou DO [address] [place] [address] [email or web address] PCP - General Internal Medicine 02/14/25 Additional Source Comments The information contained in this document represents components of the legal health record. It is not the complete legal health record.[facility]
--- OUTSIDE RECORDS SUMMARY | 2025-04-08 14:28 | XMS_ITS | Encounter Summary ---
Author Organization [facility] Address [address] [place] [address] Phone Care Team Providers Care Tipple Oiler Name Role Phone Janny Peoples NP Primary Care Provid er Bigda, Juan A DO Primary Care Provider [phone] Bigda, Juan A DO Unavailable Bigda, Juan A DO Primary Care Provider [phone] Encounter Details Date Type Department Care Team (Late st Contact Info) Description 04/18/2021 Transcribe Orders Virtual Department 30 [place], [place] [phone] Janny Peoples, RUBA [address] [place] [phone] [email or web address] Social History Tobacco Use Types Packs/Day Years [...] documented as of this encounter Care Teams Tipple Oiler Relationship Specialty Start Date End Date Janny Peoples NP [address] [place] [address] [email or web address] PCP - General Family Medicine 06/06/19 05/18/21 Juan Chou DO [address] [place] [address] PCP - General Internal Medicine 05/19/21 02/13/25 Juan Chou DO [address] [place] [address] PCP - General Internal Medicine 02/14/25 Juan Chou DO 179 [place] [address] Insurance Assigned Provider 05/21/21 03/19/22 documented as of this encounter Additional Source Comments The information contained in this document represents components of the legal health record. It is not the complete legal health record.[facility]
--- OUTSIDE RECORDS SUMMARY | 2025-04-08 14:28 | XMS_ITS | Encounter Summary ---
Author Organization [facility] Address [address] [address] Phone Care Team Providers Care Foreclosure Home Inspector Name Role Phone Janny Peoples NP Primary Care Provid er Keon Bates MD Unavailable [phone] BigJuan cote DO Primary Care Provider [phone] BigdaJuan DO Unavailable Bigkera, Juan Guzman DO Primary Care Provider [phone] Encounter Details Date Type Department Care Team (Late st Contact Info) Description 11/03/2020 Ancillary Orders Virtual Department 30 [place], [place] [phone] Janny Peoples, RUBA [address] [place] [address] [email or web address] Lump of breast, right Social [...] LEFT BREAST: Negative, no evidence of malignancy. Ufz-izfnpmoreikmwxoze-ca is recommended. Bi-RADS: BI-RADS CATEGORY: 3 - Probably benign finding. Short intervalfollow up suggested. DENSITY: There are scattered fibroglandular densities. RIGHT RECOMMENDATION DUE DATE: 6 Months Recommendation: Right short interval follow-up LEFT RECOMMENDATION DUE DATE: Age 39 Recommendation: Left Mammography Screening Janny Peoples SERVICES MANAGER IMG US BREAST Malu l Result documented in this encounter Visit Diagnoses Diagnosis Lump of breast, right Lump of breast, right documented in this encounter Additional Health Concerns Infection Onset Date Last Indicated Resolved Time CoV-Risk 06/28/2024 06/28/2024 07/09/2024 1:24 AM EST documented as of this encounter Care Teams Foreclosure Home Inspector Relationship Specialty Start Date End Date Janny Peoples NP [address] [place] [address] [email or web address] PCP - General Family Medicine 06/06/19 05/18/21 Juan Chou DO [address] [place] [address] PCP - General Internal Medicine 05/19/21 02/13/25 Juan Chou DO [address] [place] [address] PCP - General Internal Medicine 02/14/25 Keon Bates MD [address] [place] [address] [email or web address] Insurance Assigned Provider 12/18/19 11/20/20 Juan Chou DO [address] [place] [address] [email or web address] Insurance Assigned Provider 05/21/21 03/19/22 documented as of this encounter Additional Source Comments The information contained in this document represents components of the legal health record. It is not the complete legal health record.[facility]
--- OUTSIDE RECORDS SUMMARY | 2025-04-08 14:28 | XMS_ITS | Encounter Summary ---
Author Organization [facility] Address [address] [place] [address] Phone Care Team Providers Care Control Systems Eng Name Role Phone Janny Peoples NP Primary Care Provid er Keon Bates MD Unavailable [phone] Juan Chou DO Primary Care Provider [phone] Juan Chou DO Unavailable Juan Chou DO Primary Care Provider [phone] Encounter Details Date Type Department Care Team (Late st Contact Info) Description 11/03/2020 Procedure Pass [address] [address] Social History Tobacco Use Types Packs/Day Years [...] documented as of this encounter Care Teams Control Systems Eng Relationship Specialty Start Date End Date Janny Peoples NP [address] [place] [address] [phone] [email or web address] PCP - General Family Medicine 06/06/19 05/18/21 Juan Chou DO [address] [place] [address] PCP - General Internal Medicine 05/19/21 02/13/25 Juan Chou DO [address] [place] [address] PCP - General Internal Medicine 02/14/25 Keon Bates MD [address] [place] [address] Insurance Assigned Provider 12/18/19 11/20/20 Juan Chou DO [address] [place] [address] Insurance Assigned Provider 05/21/21 03/19/22 documented as of this encounter Additional Source Comments The information contained in this document represents components of the legal health record. It is not the complete legal health record.[facility]
--- OUTSIDE RECORDS SUMMARY | 2025-04-08 14:28 | XMS_ITS | Encounter Summary ---
Author Organization [facility] Address [address] [facility] [address] [place] [address] Phone Care Team Providers Care Adjunct Professor Of Law Name Role Phone Juan Chou Primary Care Provider [phone] Encounter Details Date Type Department Care Team ([facility] st Contact Info) Description 02/14/2025 Procedure Pass [facility], Ct Scan - [address] [address] Social History Tobacco Use Types Packs/Day Years [...] 5:18 PM EDT Hoa Ba RN * [place] Suicide Severity Rating Scale (Screener/Recent Self-Report) Question [...] on filedocumented in this encounter Care Teams Adjunct Professor Of Law Relationship Specialty Start Date End Date Juan Chou DO [address] [place] [address] [email or web address] PCP - General Internal Medicine 02/14/25 documented as of this encounter Additional Source Comments The information contained in this document represents components of the legal health record. It is not the complete legal health record.[facility]
--- OUTSIDE RECORDS SUMMARY | 2025-04-08 14:28 | XMS_ITS | Encounter Summary ---
Author Organization [facility] Address [address] [place], [place] [phone] Phone Care Team Providers Care Battalion Fire Chief Name Role Phone Janny Peoples NP Primary Care Provid er Bigda, Juan A DO Primary Care Provider [phone] Bigda, Juan A DO Unavailable Bigda, Juan A DO Primary Care Provider [phone] Encounter Details Date Type Department Care Team (Late st Contact Info) Description 02/14/2021 Procedure Pass [address] [address] Social History Tobacco Use Types Packs/Day Years [...] documented as of this encounter Care Teams Battalion Fire Chief Relationship Specialty Start Date End Date Janny Peoples NP [address] [place] [address] [phone] [email or web address] PCP - General Family Medicine 06/06/19 05/18/21 Juan Chou DO [address] [place] [address] PCP - General Internal Medicine 05/19/21 02/13/25 Juan Chou DO [address] [place] [address] PCP - General Internal Medicine 02/14/25 Juan Chou DO [address] [place] [address] Insurance Assigned Provider 05/21/21 03/19/22 documented as of this encounter Additional Source Comments The information contained in this document represents components of the legal health record. It is not the complete legal health record.[facility]
--- OUTSIDE RECORDS SUMMARY | 2025-04-08 14:28 | XMS_ITS | Encounter Summary ---
Author Organization [facility] Address [address] [address] Phone Care Team Providers Care Box Spinner Name Role Phone José Antonio Juan Guzman DO Primary Care Provider [phone] Juan Chou DO Unavailable Juan Chou DO Primary Care Provider [phone] Encounter Details Date Type Department Care Team (Late st Contact Info) Description 12/28/2021 Transcribe Orders Virtual Department 30 [place] [address] Jonna Roman PA [address] [facility] [place] [address] Social History Tobacco Use Types Packs/Day Years [...] documented as of this encounter Care Teams Box Spinner Relationship Specialty Start Date End Date uJan hCou DO [email or web address] PCP - General Internal Medicine 05/19/21 02/13/25 Juan Chou DO [address] [place] [address] PCP - General Internal Medicine 02/14/25 Juan Chou DO [address] [place] [address] [email or web address] Insurance Assigned Provider 05/21/21 03/19/22 documented as of this encounter Additional Source Comments The information contained in this document represents components of the legal health record. It is not the complete legal health record.[facility]
--- OUTSIDE RECORDS SUMMARY | 2025-04-08 14:28 | XMS_ITS | Encounter Summary ---
Author Organization [facility] Address [address] [place] [address] Phone Care Team Providers Care Equipment Coordinator Name Role Phone Janny Peoples NP Primary Care Provid er Keon Bates MD Unavailable [phone] Juan Chou DO Primary Care Provider [phone] Juan Chou DO Unavailable Juan Chou DO Primary Care Provider [phone] Encounter Details Date Type Department Care Team (Late st Contact Info) Description 11/03/2020 Procedure Pass [facility], [address] [address] Social History Tobacco Use Types Packs/Day Years [...] documented as of this encounter Care Teams Equipment Coordinator Relationship Specialty Start Date End Date Janny Peoples NP [address] [place] [address] [phone] [email or web address] PCP - General Family Medicine 06/06/19 05/18/21 Juan Chou DO [address] [place] [address] PCP - General Internal Medicine 05/19/21 02/13/25 Juan Chou DO [address] [place] [address] PCP - General Internal Medicine 02/14/25 Keon Bates MD [address] [place] [address] Insurance Assigned Provider 12/18/19 11/20/20 Juan Chou DO [address] [place] [address] Insurance Assigned Provider 05/21/21 03/19/22 documented as of this encounter Additional Source Comments The information contained in this document represents components of the legal health record. It is not the complete legal health record.[facility]
--- OUTSIDE RECORDS SUMMARY | 2025-04-08 14:28 | XMS_ITS | Encounter Summary ---
Author Organization [facility] Address [address] [address] Phone Care Team Providers Care Agricultural Economist Name Role Phone José Antonio Juan Guzman DO Primary Care Provider [phone] Juan Chou DO Unavailable Juan Chou DO Primary Care Provider [phone] Encounter Details Date Type Department Care Team (Late st Contact Info) Description 12/28/2021 Transcribe Orders Virtual Department [address] [place] [address] Jonna Roman PA 6 [facility] [place] [address] Social History Tobacco Use Types Packs/Day Years [...] documented as of this encounter Care Teams Agricultural Economist Relationship Specialty Start Date End Date Juan Chou DO [email or web address] PCP - General Internal Medicine 05/19/21 02/13/25 Juan Chou DO [address] [place] [address] [email or web address] PCP - General Internal Medicine 02/14/25 Juan Chou DO [address] [place] [address] [email or web address] Insurance Assigned Provider 05/21/21 03/19/22 documented as of this encounter Additional Source Comments The information contained in this document represents components of the legal health record. It is not the complete legal health record.[facility]
[2025-04-14 14:18] LABS: Vitamin D 25-OH, D2 <4 ng/mL; Vitamin D 25-OH, D3 16 ng/mL; Vitamin D 25-OH, Total 16 ng/mL (30-100)
== END 2025-04-08 11:27 | disposition home or self-care (01) ==
LOC: HO.LAB 11:26
PROVIDERS: PCP Physician Assistant; Visit Provider Physician Assistant
DX: E11.43 Type 2 diabetes mellitus with diabetic autonomic (poly)neuropathy (principal); K31.84 Gastroparesis; E78.2 Mixed hyperlipidemia; I16.1 Hypertensive emergency; E03.9 Hypothyroidism, unspecified; Z13.21 Encounter for screening for nutritional disorder
CPT/HCPCS: 36415; 80053; 80061; 82088; 82306; 82607; 82728; 82746; 83036; 83540; 84244; 84439; 84443; 84445; 84480; 85025; 86376